=== PATIENT | female | born 1945 | race Caucasian/White ===

== ENCOUNTER → 2017-10-26 08:38 | Outpatient (CLI) | payer MEDICARE, BC, SELFPAY ==
[2017-10-26 10:59] LABS: Hemoglobin A1c 6.1 % (4.2-6.3)
[2017-10-26 11:09] LABS: ALB/GLOB Ratio 1.1 RATIO (0.9-2.4); AST(SGOT) 49 U/L (15-37); Alanine Aminotransfer ALT/SGPT 68 U/L (13-56); Albumin, Serum 3.4 g/dL (3.2-5.0); Alkaline Phosphatase 46 U/L (45-117); Anion Gap 7 (5-15); BUN 30 mg/dL (7-18); BUN/Creat Ratio 38.3 RATIO (10-20); Calcium,Total 8.6 mg/dL (8.5-10.1); Chloride 109 mmol/L (98-107); Creatinine, Serum 0.78 mg/dL (0.55-1.02); EST Glomerular Filtration Rate 76 mL/min (>60); Est Glom Filt Rate - Afr Amer 92 mL/min (>60); Glucose 76 mg/dL (74-106); Potassium 4.2 mmol/L (3.5-5.1); Protein, Total 6.4 g/dL (6.4-8.2); Sodium Level 141 mmol/L (136-145)
== END ==
PROVIDERS: Family Provider Internal Medicine; PCP Internal Medicine; Visit Provider Nurse Practitioner
DX: E10.9 Type 1 diabetes mellitus without complications (principal)
CPT/HCPCS: 36415; 80053; 83036

== ENCOUNTER → 2018-02-01 08:08 | Outpatient (CLI) | payer MEDICARE, BC, SELFPAY ==
[2018-02-01 10:49] LABS: ALB/GLOB Ratio 1.2 RATIO (0.9-2.4); AST(SGOT) 26 U/L (15-37); Alanine Aminotransfer ALT/SGPT 30 U/L (13-56); Albumin, Serum 3.5 g/dL (3.2-5.0); Alkaline Phosphatase 43 U/L (45-117); Anion Gap 5 (5-15); BUN 33 mg/dL (7-18); BUN/Creat Ratio 38.5 RATIO (10-20); Chloride 110 mmol/L (98-107); Creatinine, Serum 0.86 mg/dL (0.55-1.02); EST Glomerular Filtration Rate 69 mL/min (>60); Est Glom Filt Rate - Afr Amer 83 mL/min (>60); Glucose 95 mg/dL (74-106); Potassium 4.1 mmol/L (3.5-5.1); Protein, Total 6.5 g/dL (6.4-8.2); Sodium Level 142 mmol/L (136-145)
[2018-02-01 10:50] LABS: Microalbumin,Random Urine 13.3 mg/L (NO RANGE EST.)
[2018-02-01 10:57] LABS: Hemoglobin A1c 5.9 % (4.2-6.3)
== END ==
PROVIDERS: Family Provider Internal Medicine; PCP Internal Medicine; Visit Provider Nurse Practitioner
DX: E10.9 Type 1 diabetes mellitus without complications (principal)
CPT/HCPCS: 36415; 80053; 82043; 82570; 83036

== ENCOUNTER → 2018-02-18 11:08 | Outpatient (CLI) | payer MEDICARE, BC, SELFPAY ==
--- NOTE | 2018-02-18 11:15 | RAD_ITS ---
STUDY: X-RAY - CERVICAL SPINE REASON FOR EXAM: Female, 72 years old. Neck pain TECHNIQUE: 5 view(s) of the cervical spine were obtained. COMPARISON: None FINDINGS: Moderate to moderately severe disc narrowing is present between C3 and C7 with small partially bridging anterior osteophytes, posterior uncovertebral joint hypertrophy, minimal facet arthropathy. In the oblique views the uncovertebral joint hypertrophy contributes to mild bony foraminal narrowing at multiple levels. There is mild cervicothoracic scoliosis. There is preserved lordosis. There is normal vertebral body height and alignment. The posterior elements appear intact. The prevertebral soft tissues appear normal. The odontoid and lateral masses are intact and aligned. Apical thoracic structures unremarkable. RAD/Cerv Spine 4 or 5 Views IMPRESSION: Multilevel cervical degenerative disc disease with evidence of multilevel foraminal narrowing secondary to uncovertebral joint hypertrophy. Cord for any symptoms of cervical radiculopathy that may indicate the presence of nerve root impingement. Consider follow-up MRI of the cervical spine for more complete characterization if clinically appropriate. Electronically Signed: Zuhair Landrum, at 14:35 EDT Tel , Service support ,
== END ==
PROVIDERS: Family Provider Internal Medicine; PCP Internal Medicine; Visit Provider Nurse Practitioner Family
DX: M50.11 Cervical disc disorder with radiculopathy, high cervical region (principal)
CPT/HCPCS: 72050

== ENCOUNTER → 2018-02-26 13:03 | Outpatient (CLI) | payer MEDICARE, BC, SELFPAY ==
--- NOTE | 2018-02-26 13:04 | MRI_ITS ---
STUDY: MRI CERVICAL SPINE WITHOUT CONTRAST REASON FOR EXAM: Female, 72 years old. Neck pain TECHNIQUE: Standardized fat and water weighted pulse sequences were obtained in the sagittal and axial planes. COMPARISON: None FINDINGS: Normal foramen magnum and brainstem-cervical cord junction. Normal craniovertebral junction. Normal anterior atlantoaxial articulation. Normal odontoid process. Normal cervical lordosis. Normal vertebral bodies and posterior osseous elements. C2-3: Normal endplates. Normal disc height, signal and morphology. Normal central canal and intervertebral neural foramina. C3-4: Moderate narrowing of the neural foramen on the left. Central canal and right neural foramen patent. C4-5: Moderate disc space narrowing and narrowing of the neural foramen on the left. Central canal and right neural foramen patent. C5-6: Moderate narrowing of the neural foramina bilaterally. Broad-based posterior disc marginal osteophyte. Central canal measures 8 mm in the midline. C6-7: Moderate narrowing of the neural foramina bilaterally due to uncinate spondylosis. Central canal patent. C7-T1: Normal endplates. Normal disc height, signal and morphology. Normal central canal and intervertebral neural foramina. Normal cervical cord. Normal visualized soft tissue structures. MRI/Spine Cervical (Routine) IMPRESSION: Multilevel central and lateral spinal stenosis most severe at C5-6 Electronically Signed: Armando Velasquez MD at 19:47 EDT , Service support ,
== END ==
PROVIDERS: Family Provider Internal Medicine; PCP Internal Medicine; Visit Provider Nurse Practitioner Family
DX: M54.12 Radiculopathy, cervical region (principal); M50.30 Other cervical disc degeneration, unspecified cervical region; R93.7 Abnormal findings on diagnostic imaging of other parts of musculoskeletal system
CPT/HCPCS: 72141

== ENCOUNTER → 2018-04-30 10:27 | Outpatient (CLI) | payer MEDICARE, BC, SELFPAY | PROVIDERS: Family Provider Internal Medicine; PCP Internal Medicine; Visit Provider Orthopaedic Surgery | DX: M50.30 Other cervical disc degeneration, unspecified cervical region (principal) | CPT/HCPCS: 72050 ==

== ENCOUNTER → 2018-05-07 07:50 | Outpatient (CLI) | payer MEDICARE, BC, SELFPAY ==
[2018-05-07 10:17] LABS: Microalbumin,Random Urine 50.6 mg/L (NO RANGE EST.)
[2018-05-07 10:23] LABS: ALB/GLOB Ratio 1.2 RATIO (0.9-2.4); AST(SGOT) 29 U/L (15-37); Alanine Aminotransfer ALT/SGPT 35 U/L (13-56); Albumin, Serum 3.7 g/dL (3.2-5.0); Alkaline Phosphatase 36 U/L (45-117); Anion Gap 7 (5-15); BUN 35 mg/dL (7-18); BUN/Creat Ratio 44.1 RATIO (10-20); Calcium,Total 9.1 mg/dL (8.5-10.1); Chloride 108 mmol/L (98-107); Creatinine, Serum 0.79 mg/dL (0.55-1.02); EST Glomerular Filtration Rate 75 mL/min (>60); Est Glom Filt Rate - Afr Amer 91 mL/min (>60); Globulin 3.1 g/dL (2.2-4.2); Glucose 76 mg/dL (74-106); Potassium 4.2 mmol/L (3.5-5.1); Protein, Total 6.8 g/dL (6.4-8.2); Sodium Level 141 mmol/L (136-145)
[2018-05-07 10:26] LABS: Hemoglobin A1c 5.9 % (4.2-6.3)
[2018-05-07 13:58] LABS: Cholesterol 180 mg/dL (200); High Density Lipoprotein 67 mg/dL; Triglycerides 45 mg/dL; Very Low Density Lipoprotein 9 mg/dL (5-40)
== END ==
PROVIDERS: Nurse Practitioner Family; Family Provider Internal Medicine; PCP Internal Medicine; Visit Provider Nurse Practitioner
DX: E10.9 Type 1 diabetes mellitus without complications (principal); E10.69 Type 1 diabetes mellitus with other specified complication; E78.5 Hyperlipidemia, unspecified
CPT/HCPCS: 36415; 80053; 80061; 82043; 82570; 83036

== ENCOUNTER → 2018-06-06 10:33 | Outpatient (CLI) | payer MEDICARE, BC, SELFPAY ==
--- NOTE | 2018-06-06 10:34 | BI_ITS ---
MAMMOGRAPHY - BILATERAL SCREENING REASON FOR EXAM: Female, 73 years old. Routine annual screening examination. PERTINENT HISTORY: no fam hx lt stereo bx 1994 TECHNIQUE: Digital bilateral breast swapna (3D mammographic acquisition) in the CC and MLO projections. 2-D mediolateral oblique (MLO) and craniocaudad (CC) views of both breasts were obtained. CAD: Full Field Digital Mammography with Computer Added Detection was performed. COMPARISON: Jun 05 2017 11:17am FINDINGS: Breast Composition: The breasts are heterogeneously dense, which may obscure small masses. There are no dominant masses or suspicious calcifications. No other significant abnormalities are identified. BI/SCREENING MAMM (CAD), BILAT IMPRESSION: Stable bilateral screening mammogram. Yearly follow-up mammogram recommended. (A) ASSESSMENT CATEGORY: BIRADS Category 2: Benign. A letter regarding these results will be sent to the patient by the facility within 30 days. Approximately 10% of breast cancers are not detected by mammography. A normal mammogram should not delay biopsy of a clinically suspicious abnormality. [id number] Electronically Signed: Ashley Strauss MD at 16:39 EDT Tel , Service support ,
== END ==
PROVIDERS: Family Provider Internal Medicine; PCP Internal Medicine; Referring Provider Nurse Practitioner Family; Visit Provider Nurse Practitioner Family
DX: Z12.31 Encounter for screening mammogram for malignant neoplasm of breast (principal)
CPT/HCPCS: 77063; 77067

== ENCOUNTER → 2018-08-01 08:26 | Outpatient (CLI) | payer MEDICARE, BC, SELFPAY ==
[2018-05-07 13:01] VITALS: BMI 24.0
[2018-08-01 10:23] LABS: ALB/GLOB Ratio 1.1 RATIO (0.9-2.4); AST(SGOT) 36 U/L (15-37); Alanine Aminotransfer ALT/SGPT 42 U/L (13-56); Albumin, Serum 3.4 g/dL (3.2-5.0); Alkaline Phosphatase 41 U/L (45-117); Anion Gap 7 (5-15); BUN 30 mg/dL (7-18); BUN/Creat Ratio 34.8 RATIO (10-20); Calcium,Total 8.8 mg/dL (8.5-10.1); Chloride 109 mmol/L (98-107); Creatinine, Serum 0.86 mg/dL (0.55-1.02); EST Glomerular Filtration Rate 68 mL/min (>60); Est Glom Filt Rate - Afr Amer 83 mL/min (>60); Globulin 3.1 g/dL (2.2-4.2); Glucose 91 mg/dL (74-106); Potassium 4.1 mmol/L (3.5-5.1); Protein, Total 6.5 g/dL (6.4-8.2); Sodium Level 144 mmol/L (136-145)
[2018-08-01 10:35] LABS: Hemoglobin A1c 7.1 % (4.2-6.3)
[2018-08-01 10:36] LABS: Microalbumin,Random Urine 23.6 mg/L (NO RANGE EST.)
--- OUTSIDE RECORDS SUMMARY | 2018-09-26 08:09 | XMS RPT_ITS ---
:1945 Author Organization OHIP Support Name Relationship Address Phone LOREN SCOTT [address] + [place] [address] R Unavailable Unavailable Unavailable LOREN SCOTT Unavailable [address] + [place] [address] R Unavailable Unavailable Unavailable LOREN SCOTT Unavailable [address] + [place] [address] R Unavailable Unavailable Unavailable LOREN SCOTT Unavailable [address] + [place] [address] R Unavailable Unavailable Unavailable LOREN SCOTT Unavailable [address] + [place] [address] R Unavailable Unavailable Unavailable LOREN SCOTT Unavailable [address] + [place] [address] R Unavailable Unavailable Unavailable LOREN SCOTT Unavailable [address] + [place] [address] R Unavailable Unavailable Unavailable LOREN SCOTT Unavailable [address] + [place] [address] R Unavailable Unavailable Unavailable LOREN SCOTT Unavailable [address] + [place] [address] R Unavailable Unavailable Unavailable LOREN SCOTT Unavailable [address] + [place] [address] R Unavailable Unavailable Unavailable LOREN SCOTT Unavailable [address] + [place] [address] R Unavailable Unavailable Unavailable LOREN SCOTT Unavailable [address] + [place] [address] R Unavailable Unavailable Unavailable LOREN SCOTT Unavailable [address] + [place] [address] R Unavailable Unavailable Unavailable SONIA, LOREN Unavailable [address] + [place] [address] R Unavailable Unavailable Unavailable SONIA, LOREN Unavailable [address] + [place] [address] R Unavailable Unavailable Unavailable SONIA, LOREN Unavailable [address] + [place] [address] R Unavailable Unavailable Unavailable SONIA, LOREN Unavailable [address] + [place] [address] R Unavailable Unavailable Unavailable SONIA, LOREN Unavailable Unavailable + SONIA, LOREN Unavailable Unavailable + SONIA, LOREN Unavailable [address] + [place] [address] R Unavailable Unavailable Unavailable Care Team Providers Name Role Phone Alina Murguia SENIOR SYSTEM OPERATOR-C Attending Unavailable Oleghe, Efewongbe Referring Unavailable Oleghe, Efewongbe Primary Care Unavailable Jenny Laboy SENIOR SYSTEM OPERATOR-C Attending Unavailable Jenny Laboy SENIOR SYSTEM OPERATOR-C Referring Unavailable Oleghe, Efewongbe Primary Care Unavailable Jenny Laboy SENIOR SYSTEM OPERATOR-C Attending Unavailable Oleghe, Efewongbe Referring Unavailable Jenny Laboy SENIOR SYSTEM OPERATOR-C Attending Unavailable Jenny Laboy SENIOR SYSTEM OPERATOR-C Referring Unavailable Oleghe, Efewongbe Primary Care Unavailable Jenny Laboy SENIOR SYSTEM OPERATOR-C Attending Unavailable Oleghe, Efewongbe Referring Unavailable Alina Murguia SENIOR SYSTEM OPERATOR-C Attending Unavailable Oleghe, Efewongbe Referring Unavailable Oleghe, Efewongbe Primary Care Unavailable Alina Murguia SENIOR SYSTEM OPERATOR-C Attending Unavailable Alina Murguia SENIOR SYSTEM OPERATOR-C Referring Unavailable Oleghe, Efewongbe Primary Care Unavailable Alina Murguia SENIOR SYSTEM OPERATOR-C Attending Unavailable Alina Murguia SENIOR SYSTEM OPERATOR-C Referring Unavailable Oleghe, Efewongbe Primary Care Unavailable Alina Murguia SENIOR SYSTEM OPERATOR-C Attending Unavailable Oleghe, Efewongbe Referring Unavailable Erika Degroot Attending Unavailable Oleghe, Efewongbe Referring Unavailable Oleghe, Efewongbe Primary Care Unavailable Erika Degroot Attending Unavailable Erika Degroot Referring Unavailable Oleghe, Efewongbe Primary Care Unavailable ShoJenny andujar SENIOR SYSTEM OPERATOR-C Attending Unavailable ShookJenny SENIOR SYSTEM OPERATOR-C Referring Unavailable Oleghe, Efewongbe Primary Care Unavailable ShoJenny andujar SENIOR SYSTEM OPERATOR-C Attending Unavailable Oleghe, Efewongbe Referring Unavailable Oleghe, Efewongbe Primary Care Unavailable MurguiaAlina back SENIOR SYSTEM OPERATOR-C Attending Unavailable Oleghe, Efewongbe Referring Unavailable MurguiaAlina SENIOR SYSTEM OPERATOR-C Attending Unavailable MurguiaAlina SENIOR SYSTEM OPERATOR-C Referring Unavailable Oleghe, Efewongbe Primary Care Unavailable ShoJenny andujar SENIOR SYSTEM OPERATOR-C Attending Unavailable ShookJenny SENIOR SYSTEM OPERATOR-C Referring Unavailable Oleghe, Efewongbe Primary Care Unavailable ShookJenny SENIOR SYSTEM OPERATOR-C Attending Unavailable Oleghe, Efewongbe Referring Unavailable ShookJenny SENIOR SYSTEM OPERATOR-C Attending Unavailable Oleghe, Efewongbe Referring Unavailable Oleghe, Efewongbe Primary Care Unavailable LEMON, CARLOS (PT) Attending Unavailable MURGUIA, ALINA (INDUSTRIAL ORGANIZATION MANAGER) Referring Unavailable LEMON, CARLOS (PT) Attending Unavailable MIRYAM DEGROOTERIKA M Referring Unavailable LEMON, CARLOS (PT) Attending Unavailable MURGUIA, ALINA (INDUSTRIAL ORGANIZATION MANAGER) Referring Unavailable MURGUIA, ALINA (INDUSTRIAL ORGANIZATION MANAGER) Referring Unavailable LEMON, CARLOS (PT) Attending Unavailable MURGUIA, ALINA (INDUSTRIAL ORGANIZATION MANAGER) Referring Unavailable MURGUIA, ALINA (INDUSTRIAL ORGANIZATION MANAGER) Referring Unavailable LEMON, CARLOS (PT) Attending Unavailable MURGUIA, ALINA (INDUSTRIAL ORGANIZATION MANAGER) Referring Unavailable LEMON, CARLOS (PT) Attending Unavailable MURGUIA, ALINA (INDUSTRIAL ORGANIZATION MANAGER) Referring Unavailable LEMON, CARLOS (PT) Attending Unavailable MURGUIA, ALINA (INDUSTRIAL ORGANIZATION MANAGER) Referring Unavailable LEMON, CARLOS (PT) Attending Unavailable MURGUIA, ALINA (INDUSTRIAL ORGANIZATION MANAGER) Referring Unavailable MURGUIA, ALINA (INDUSTRIAL ORGANIZATION MANAGER) Referring Unavailable Dr. Miguel Stallworth Attending Unavailable *SELF, REFERRED Referring Unavailable Madison Reyes Primary Care Unavailable PROBLEMS PROBLEMS DATE TYPE CONDITION / CODE ATTENDING STATUS SOURCE 08/06/2018 Unknown E55.9 - Vitamin D Jenny Laboy Active [place] deficiency, SENIOR SYSTEM OPERATOR-C Community unspecified / Hospital E55.9(ICD-10) Repository 08/06/2018 Unknown E11.9 - Type 2 Jenny Laboy Active [place] diabetes mellitus SENIOR SYSTEM OPERATOR-C Community without complications Hospital / E11.9(ICD-10) Repository 08/06/2018 Unknown E10.9 - Type 1 Jenny Laboy Active [place] diabetes mellitus SENIOR SYSTEM OPERATOR-C Community without complications Hospital / E10.9(ICD-10) Repository 05/07/2018 Unknown K85.90 - Acute MurguiaAlina back Active [place] pancreatitis without SENIOR SYSTEM OPERATOR-C Community necrosis or Hospital infection, Repository unspecified / K85.90(ICD-10) 05/07/2018 Unknown E10.69 - Type 1 Murguia, Alina Active [place] diabetes mellitus SENIOR SYSTEM OPERATOR-C Community with other specified Hospital complication / Repository E10.69(ICD-10) 05/07/2018 Unknown E78.5 - MurguiaAlina back Active [place] Hyperlipidemia, SENIOR SYSTEM OPERATOR-C Community unspecified / Hospital E78.5(ICD-10) Repository 05/07/2018 Unknown Z12.31 - Encounter MurguiaAlina back Active [place] for screening SENIOR SYSTEM OPERATOR-C Community mammogram for Hospital malignant neoplasm of Repository breast / Z12.31(ICD-10) 04/30/2018 Unknown M54.2 - Cervicalgia / Erika Degroot Active [place] M54.2(ICD-10) [facility] Repository 02/26/2018 Unknown R93.7 - Abnormal MurguiaAlina back Active [place] findings on SENIOR SYSTEM OPERATOR-C Community diagnostic imaging of Hospital other parts of Repository musculoskeletal system / R93.7(ICD-10) 02/26/2018 Unknown M54.12 - MurguiaAlina back Active [place] Radiculopathy, SENIOR SYSTEM OPERATOR-C Community cervical region / Hospital M54.12(ICD-10) Repository 02/26/2018 Unknown M50.30 - Other MurguiaAlina Active [place] cervical disc SENIOR SYSTEM OPERATOR-C Community degeneration, Hospital unspecified cervical Repository region / M50.30(ICD-10) PROCEDURES PROCEDURES No Procedure Records FoundRESULTS RESULTS ENDOCRINOLOGY VISIT Observed: 08/07/2018 Status: F Source: [place] REPORT 7:59 AM [facility] REPOSITORY [facility] [address] [place], [place] [address]. [address] [place] [address] OFFICE VISIT Date of Service: 08/06/18 MR#: [id number] Acct: [id number] Name: TASNEEM [place] Rep #: [id number] : 1945 Provider: Jenny Laboy NP Age/Sex: 73/F Location: [facility] [place] Status: Signed HPI History of present illness TASNEEM [place], is a 73 F who presents to the office today for a follow-up of her diabetes type 1. She has a past medical history which is significant for that of type 1 diabetes, hyperlipidemia, osteoarthritis, spinal stenosis (seen Dr. Pelletier pain management), hypertension, and osteopenia. Last visit lantus decreased by 1 unit due to hypoglycemia in am. A1c up to 7.1 but patient is without hypoglycemia She does follow with podiatry. She is up-to-date on her yearly ophthalmology exam. Since our last visit she denies excessive thirst, increased frequency of urination, chest pain or dyspnea. Follows a diabetic diet, Is compliant with medication and is tolerating without side effects. SMBG 6-8 times daily 70-140 average She is tolerating her statin therapy well and states that she has started her calcium and vitamin D supplementation for osteopenia, She denies any recent fractures or falls. She states that she is up-to-date on her influenza and pneumonia vaccine. At time of visit: -Pt denies symptoms of hypertensive emergency (CP,SOB,HELLER, or blurred vision) and hypotension(dizziness or lightheadedness) -Pt denies symptoms of hypoglycemia ( sweaty, confusion, anxiety, tremor, hunger, palpitations) and hyperglycemia ( polydipsia, polyuria) -Pt denies potential medication adverse effect. Hypoglycemia Aware of hypoglycemia:yes Able to self treat low BG: Yes Frequent low Blood sugar: No Has supply of glucagon: SMBG 8 times daily BG 70-150 average. Diet 3 meals Carb counts Exam Const General: comfortable, no acute distress Nutritional Appearance: average body habitus [facility] Head: normal to inspection, atraumatic Ears: hearing grossly normal bilaterally Mouth: oral mucosae normal, moist mucous membranes Eyes General: appearance normal, both eyes and all related structures Eyelids: eyelids normal Conjunctivae: conjunctivae normal Sclera: sclerae normal Neck Neck: normal visual inspection, full ROM Neck mass: No Resp Effort AND Inspection: normal respiratory effort, able to speak in complete sentences, symmetric chest movement Auscultation: Bilateral: Clear to Auscultation Cardio Rate: regular rate Rhythm: regular rhythm Heart Sounds: S1 normal, S2 normal, no gallops, no murmurs, no rubs GI Inspection: normal to inspection Auscultation: normal bowel sounds Palpation: soft, no guarding Skin General: no rashes or lesions noted Wounds: no wounds Diabetic Foot Pulses: L dorsalis pedis pulse: normal, R dorsalis pedis pulse: normal Monofilament test: Left foot: normal, Right foot: normal Neuro General: gait normal, normal light touch, pain and propioception Cognition: normal cognition Speech: speech normal Gait: normal gait Extrem General: normal to inspection Psych Appearance: well kempt Mental Status: mental status grossly normal Mood: congruent mood Affect: normal affect Speech and Movement: speech and movement normal Attitude: cooperative Thought Process: normal Judgment: judgment good Type: type 1, insulin-requiring Glucose control symptoms: Reports hypoglycemic with activity, nocturnal hypoglycemia and high post-meal glucose Weight and fatigue symptoms: Denies snoring Cardiopulmonary symptoms: Denies chest pain at rest, dyspnea on exertion, lightheadedness or myalgias GI symptoms: Denies constipation, diarrhea, nausea/dyspepsia or vomiting Other symptoms: Reports change in vision; denies blurry vision Pertinent visit history: Denies recent visit to ER, recent hospital admission or recent 911 calls Self monitoring: Yes Percentage of fasting blood glucose within goal: most of the time Dietary compliance: Diabetes: good Diabetes education in past year: Yes Glucose testing: demonstrates correct use of meter, understands testing schedule Sick day education - understands ketone testing: Yes Physical activity: regular Intake Vital Signs08/06/18 Height 5 ft 4 in 08/06/18 Weight: 142 lb 4 oz 08/06/18 Body Mass Index (BMI) 24.4 08/06/18 Blood Pressure 119/78 08/06/18 Blood Pressure Location Rt popliteal 08/06/18 Blood Pressure Position Sitting Intake Visit Reasons: Diabetes follow-up Chief Complaint: follow-up Rrt Required: No Accompanied by: Self Allergies codeine Allergy (Severe, Verified 08/06/18 09:43) Unknown Sulfa (Sulfonamide Antibiotics) Allergy (Severe, Verified 08/06/18 09:43) Unknown penicillin Allergy (Severe, Uncoded 08/06/18 09:43) Unknown Medications blood sugar diagnostic strips See Dose Instructions .ROUTE .MEDSUPPLY #20 ea 08/07/17 [History Confirmed 08/06/18] calcium carbonate 600 mg(1,500 mg)-vitamin D3 800 unit chewable tablet 1 tab PO BID 08/29/17 [History Confirmed 08/06/18] lisinopril 10 mg tablet 10 mg PO QDAY #90 tab 09/11/17 [Rx Confirmed 08/06/18] insulin glargine (U-100) 100 unit/mL (3 mL) subcutaneous pen 12 unit SC QDAY #15 ml 12/10/17 [Rx Confirmed 08/06/18] insulin lispro (U- 100) 100 unit/mL subcutaneous pen See Rx Instructions SC TID #15 ml 12/10/17 [Rx Confirmed 08/06/18] atorvastatin 40 mg tablet 40 mg PO QDAY #90 tab 04/18/18 [Rx Confirmed 08/06/18] gabapentin 300 mg capsule 300 mg PO QHS #60 cap 08/06/18 [Rx] pen needle, diabetic 31 gauge x 01/16 See Dose Instructions .ROUTE .MEDSUPPLY #150 ea 08/06/18 [Rx] Nurse's Note: blood sugars : low : 47 high : 325 [facility] Medical History Arthritis (Chronic) Back problem (Chronic) Pancreatitis (Acute) Diabetes type 1, controlled (Chronic) Osteoarthritis (Chronic) Carpal tunnel syndrome (Acute) Gallstones (Acute) H/O: hysterectomy (Acute) Skin cancer (Acute) Surgical History History of carpal tunnel release (Acute) History of cholecystectomy (Acute) History of tonsillectomy (Acute) History of total knee arthroplasty (Acute) Family History Mother Asthma Liver disease Father CVA (cerebral vascular accident) Social History Smoking Status: Never smoker second hand exposure: No alcohol intake: never substance use type: does not use what type of physical activity do you participate in: walking frequency: daily ROS Const Constitutional: No anorexia, body ache, chills, fatigue, fever(s), frequent falls, decreased energy, malaise, night sweats, weakness, weight change, sleep problems, abnormal sleep pattern, change in appetite, other, headache(s), snoring or excessive sweating Eyes Eyes: Positive for change in vision and other (poor night vision); no blurry vision, double vision, discharge, dry eyes, bulging eyes, floaters, visual disturbances, eye pain, light sensitivity, spots in vision or tunnel vision ENT ENT: No abnormal hearing, ear pain, ear discharge, ear pressure, hearing loss, tinnitus, dizziness/vertigo, balance problems, nosebleed/epistaxis, nasal congestion, nasal obstruction, nose pain, sinus pressure, sinus pain, nasal discharge, post nasal drip, headache(s), facial pain, dental pain, dry mouth, bad breath, hoarseness, lip swelling, mouth lesions, mouth pain, sore throat, tongue swelling, throat swelling, other, difficulty swallowing or neck pain Resp Respiratory: No cough, change in phlegm color, chest congestion, excessive phlegm production, hemoptysis, pain on inspiration, shortness of breath, pain with cough, snoring, stridor, wheezing or other Cardio Cardiology: No chest pain at rest, chest pain with exertion, leg pain with exertion, excessive sweating, shortness of breath, dyspnea on exertion, generalized swelling, irregular heart rhythm, lightheadedness, orthopnea, radiating jaw, neck or arm pain, fast heart rate, slow heart rate, palpitations or other Gastro GI: No abdominal pain, belching, bloating, change in bowel habits, change in stool character, coffee ground emesis, constipation, cramping, diarrhea, heartburn, difficulty swallowing, feeling full early, excessive flatus, incontinent of stools, Vomiting blood/hematemesis, blood in stool, loose stools, Black,tarry stools, nausea/dyspepsia, pain with swallowing, vomiting or other Genitourinary-Female: Positive for urinary frequency; no difficulty urinating, burning urination, painful urination, urinary incontinence, urinary urgency, urinary hesitancy, urinary retention, blood in urine, Frequent nighttime urination/ nocturia, post void dribbling, suprapubic fullness, side pain, sexual problems, genital lesions, genital itching, hot flashes, abnormal periods, abnormal vaginal bleeding, absent period, painful periods, light periods, heavy periods, difficulty getting , painful intercourse, pelvic pain, vaginal dryness, vaginal odor, Vaginal Itching or other Musc Musculoskeletal: No abnormal walking, joint pain, back pain, deformity, joint swelling, limited range of motion, loss of height, muscle cramps, muscle weakness, decreased muscle mass, body aches, neck pain, numbness, radiating pain into limb, stiffness, tingling or other Skin Skin: No acne, hair loss, change in hair, nail changes, boil, change in skin color, dry skin, redness, excessive hair growth, yellowing of the skin, lesions, itching, rash, skin pain, skin ulcer, sores, skin swelling, wounds or other Breast Breast: No other Neuro Neurology: No frequent falls, weakness, visual disturbances, abnormal hearing, headache(s), abnormal walking, numbness or tingling Psych Psychiatric: No abnormal sleep pattern, No change in appetite Endo Endocrine: No fatigue, other or excessive sweating Aller/Imm Allergy/Immunologic: No lip swelling, tongue swelling, throat swelling, wheezing or itchy eyes Assessment AND Plan 1. 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 E10.69; E78.5 Plan A1c higher but patient is without as many low BG readings. Had some issues with freestyle sensor noting much lower BG than her meter. this created need to continue to numerous fingersticks along with the sensor but the sensor did alert her to low BG readings. Continues to monitor diet . On statin without side effects. BP controlled Renal function reviewed. GFR and cr normal. Continues on vitamin D supplement. 2. Vitamin D deficiency E55.9 Orders Orders: Plan Detail Other Orders Orders: Additional Comments 1. Please schedule follow up in 3 months. 2. Lab work one week before appointment. 3. Discussed importance of regular exercise and recommend starting or continuing a regular exercise program for good health. 4. The patient was encouraged to lose weight for good health 5. The importance of monitoring blood sugar regularly was reviewed. 6. The importance of monitoring the HBA1c level regularly was reviewed. 7. The importance of prper foot care and regularly checking feet to prevent sores and loss of limbs was reviewed. 8. The importance of keeping BP at or below 130/80 to prevent stroke, heart attacks, kidney failure, blindness was reviewed. Spent approximately 30 minutes with patient with over 50% of time spent in discussion and counseling regarding medication adjustment, symptoms and treatment of hypoglycemia, diet adherence, and checking BG before driving. Coding Level of Care Code Off vis,est,level 4 Diagnoses 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 E10.69; E78.5 Vitamin D deficiency E55.9 08/07/18 0758 <Electronically signed by Jenny GALLO> Date Jenny Laboy SENIOR SYSTEM OPERATOR-C Cosigner Signature: Date (if applicable) CC: COMPREHENSIVE METABOLIC Collected: 08/01/2018 Status: F Source: [place] 8:36 AM [facility] REPOSITORY TYPE CODE TESTS RESULT OUT OF RANGE REFERENCE UNITS LAB L501.0100 74-106 mg/dL Normal GLU 91 Result Comment: Please note revised GLUCOSE reference range effective 2017. LAB L501.1000 7-18 mg/dL High BUN 30 LAB L501.1100 0.55-1.02 mg/dL Normal CREAT,SERUM 0.86 Result Comment: The validity of the calculated GFR AND GFRAA in patients over 70 years has not been determined. Clinical correlation is essential. LAB L501.1110 >60 mL/min Normal EST GFR 68 Result Comment: Non- GFR Calc LAB L501.1115 >60 mL/min Normal EST GFR - AA 83 Result Comment: GFR Calc LAB L501.1300 10-20 RATIO High BUN/CRE 34.8 LAB L501.1500 6.4-8.2 g/dL T Normal PROT 6.5 LAB L501.1800 3.2-5.0 g/dL Normal ALB 3.4 LAB L501.1950 2.2-4.2 g/dL Normal GLOB 3.1 LAB L501.2000 0.9-2.4 RATIO Normal A/G 1.1 LAB L501.2200 8.5-10.1 mg/dL CA Normal 8.8 LAB L501.4100 15-37 U/L Normal AST 36 LAB L501.4305 45-117 U/L Low ALK P 41 LAB L501.4405 13-56 U/L Normal ALT 42 LAB L501.4600 0.20-1.00 mg/dL T Normal BILI 0.50 LAB L501.5300 136-145 mmol/L NA Normal 144 LAB L501.5600 3.5-5.1 mmol/L K Normal 4.1 LAB L501.5900 98-107 mmol/L High CL 109 LAB L501.6100 21.0-32.0 mmol/L Normal CO2 28.0 LAB L501.6200 5-15 Normal GAP 7 Performed By: #### L500.4050 #### [facility] [address] [place], [address] HEMOGLOBIN A1C Collected: 08/01/2018 Status: F Source: [place] 8:36 AM [facility] REPOSITORY TYPE CODE TESTS RESULT OUT OF RANGE REFERENCE UNITS LAB L501.9985 4.2-6.3 % High HGB A1C 7.1 Performed By: #### L501.9985 #### [facility] [address] [place], [address] CREATININE, URINE Collected: 08/01/2018 Status: F Source: [place] (RANDOM) 8:36 AM [facility] REPOSITORY TYPE CODE TESTS RESULT OUT OF RANGE REFERENCE UNITS LAB L501.1200 NO RANGE EST. mg/dL Normal UR CREAT 69.20 Performed By: #### L501.1200, L502.0500 #### [facility] [address] [place], [address] MICROALBUMIN,RANDOM URINE Collected: Status: F Source: [place] 08/01/2018 8:36 AM [facility] REPOSITORY TYPE CODE TESTS RESULT OUT OF RANGE REFERENCE UNITS LAB L502.0500 NO RANGE EST. mg/L Normal 23.6 MICROALBUMIN ,UR Performed By: #### L501.1200, L502.0500 #### [facility] [address] [place], [address] PROGRESS Observed: 06/10/2018 Status: COMPLETED Source: [place] 1:46 PM [facility] REPOSITORY HNO ID: [id number] Author: Carlos (Pt) Maykel Service: (none) Author Type: Physical Therapist Type: Progress Notes Filed: 06/10/2018 1:48 PM Note Text: [facility] PHYSICAL THERAPY DISCONTINUANCE OF CARE Plan of Care Period: Start of Care Date: 03/15/18 Last Visit Date: 05/01/18 Therapy Program: The following is a summary of the interventions provided for this episode of care; Therapeutic exercise, Manual therapy, Patient/Family/Caregiver Education and Modalities: Ultrasound Assessment: The following is the goal status: Goals for Episode of Care: created on 03/15/18 through 05/16/18 Goals updated on 05/01/2018. [place] in home exercise program. (Met) Patient will decrease pain rating by 2 points to meet minimal clinical important difference for numeric pain rating scale. (Met) Patient will increase active ROM of cervical spine L lateral flexion by 15 degrees to allow pt to improved performance of ADLs and reduce pain and restrictions. (Not Met) Patient will increase strength of cervical musculature to 4 to 4+/5 to allow for return to prior functional status, improve posture and reduce pain. (Not Met) Perform all daily activities with decreased report of symptoms/pain in 4-8 weeks. (Met) Demonstrate improvement on functional score: Patient will improve his/her AM-PAC T-scale score by 4 points to indicate a Minimal Clinical Important Difference. (Not Met) Improve postural awareness. (Met) G CODE REPORTING Based on clinical assessment and the score on the AM-PAC Scale Score Assessment Tool, the G code and corresponding severity modifiers are documented below. Evaluation: 03/15/2018 Current Status: Carrying, Moving and Handling Objects: G8984 20-39% impaired Goal Status: Carrying, Moving and Handling Objects: G8985 CI 1-19% impaired Progress Update: 04/17/2018 Current Status: Carrying, Moving and Handling Objects: G8984 CJ 20-39% impaired Goal Status: Carrying, Moving and Handling Objects: G8985 CI 1-19% impaired Based on the most recent progress report, patient was progressing as expected toward functional goals based on documented subjective information on progress and documented objective information regarding range of motion and overall function. Reason for Discontinuation of Care: Patient has not returned to therapy or scheduled additional follow-up appointments. Carlos Brar, PT SCREENING MAMM (CAD), Observed: 06/06/2018 Status: F Source: NA[place]Y [place] 10:34 AM [facility] REPOSITORY [facility] Imaging Services [address] [place] [address] SCREENING MAMM (CAD), BILROSSY MR#: [id number] Acct: [id number] Name: TASNEEM BATISTA Rep #: [id number] : 1945 F 73 From: Ashley Strauss MD PCP: Kumar Mcguire MD Status: REG CLI Study: SCREENING MAMM (CAD), BILAT Date of Exam: 06/06/18 Exam# [id number] Ordering Dr: Alina Murguia SENIOR SYSTEM OPERATOR-C MAMMOGRAPHY - BILATERAL SCREENING REASON FOR EXAM: Female, 73 years old. Routine annual screening examination. PERTINENT HISTORY: no fam hx lt stereo bx 1994 TECHNIQUE: Digital bilateral breast swapna (3D mammographic acquisition) in the CC and MLO projections. 2-D mediolateral oblique (MLO) and craniocaudad (CC) views of both breasts were obtained. CAD: Full Field Digital Mammography with Computer Added Detection was performed. COMPARISON: Jun 05 2017 11:17am FINDINGS: Breast Composition: The breasts are heterogeneously dense, which may obscure small masses. There are no dominant masses or suspicious calcifications. No other significant abnormalities are identified. BI/SCREENING MAMM (CAD), BILAT IMPRESSION: Stable bilateral screening mammogram. Yearly follow-up mammogram recommended. (A) ASSESSMENT CATEGORY: BIRADS Category 2: Benign. A letter regarding these results will be sent to the patient by the facility within 30 days. Approximately 10% of breast cancers are not detected by mammography. A normal mammogram should not delay biopsy of a clinically suspicious abnormality. [id number] Electronically Signed: Ashley Strauss MD at 16:39 EDT Tel , Service support , CC: Kumar Mcguire MD; Alina Murguia NP Pharmacy Order Entry Technician: Signed INTERNAL MEDICINE Observed: 05/08/2018 Status: F Source: NAHOMY OFFICE VISIT 8:23 AM [facility] Internal Medicine [address] [place] [address] [place] [address] OFFICE VISIT Date of Service: 05/07/18 MR#: [id number] Acct: [id number] Name: TASNEEM BATISTA Rep #: [id number] : 1945 Provider: Alina Murguia NP Age/Sex: 73/F Location: [facility] [place].[facility] Status: Signed Intake Vital Signs05/07/18 Height 5 ft 4 in Intake Visit Reasons: 1 mo fu Chief Complaint: follow-up Is patient in pain?: Yes (neck) Pain scale (1-10): 3 Allergies codeine Allergy (Severe, Verified 05/07/18 09:53) Unknown Sulfa (Sulfonamide Antibiotics) Allergy (Severe, Verified 05/07/18 09:53) Unknown penicillin Allergy (Severe, Uncoded 05/07/18 09:53) Unknown Medications blood sugar diagnostic strips See Dose Instructions .ROUTE .MEDSUPPLY #20 ea 08/07/17 [History Confirmed 05/07/18] calcium carbonate 600 mg(1,500 mg)-vitamin D3 800 unit chewable tablet 1 tab PO BID 08/29/17 [History Confirmed 05/07/18] lisinopril 10 mg tablet 10 mg PO QDAY #90 tab 09/11/17 [Rx Confirmed 05/07/18] insulin glargine (U-100) 100 unit/mL (3 mL) subcutaneous pen 12 unit SC QDAY #15 ml 12/10/17 [Rx Confirmed 05/07/18] insulin lispro (U-100) 100 unit/mL subcutaneous pen See Label Instructions SC TID #15 ml 12/10/17 [Rx Confirmed 05/07/18] gabapentin 300 mg capsule 300 mg PO QHS #60 cap 04/09/18 [Rx Confirmed 05/07/18] atorvastatin 40 mg tablet 40 mg PO QDAY #90 tab 04/18/18 [Rx Confirmed 05/07/18] Post menopausal: Yes PFSH Medical History Arthritis (Chronic) Back problem (Chronic) Pancreatitis (Acute) Diabetes type 1, controlled (Chronic) Osteoarthritis (Chronic) Carpal tunnel syndrome (Acute) Gallstones (Acute) History of carpal tunnel release (Acute) Skin cancer (Acute) Surgical History H/O: hysterectomy (Acute) History of cholecystectomy (Acute) History of tonsillectomy (Acute) History of total knee arthroplasty (Acute) Family History Mother Asthma Liver disease Father CVA (cerebral vascular accident) Social History Smoking Status: Never smoker second hand exposure: No alcohol intake: never substance use type: does not use what type of physical activity do you participate in: walking frequency: daily HPI HPI Chief Complaint: follow-up Details: TASNEEM BATISTA, is a 73 F who presents to the office today for follow-up. Her past medical history includes osteopenia, back problem, pancreatitis, type 1 diabetes, osteoarthritis, hyperlipidemia, and spinal stenosis. Patient stated that her hypertension is well controlled at home. She states she does not check her blood pressure routinely at home and she denies side effects from her medication. Her had a routine appointment today with endocrinology which is following her diabetes management. Today her hemoglobin A1c was 5.9%. Patient will continue her diabetes regimen. On April 30, 2018 patient followed up with Dr. Degroot in regards to her spinal stenosis of her neck. Dr. Degroot prescribed Voltaren gel which she stated today was denied by her insurance. Patient states that she rates her pain to her left lateral side of neck 6 out of 10 and describes the pain as a dull ache but intermittent sharp pains with movement, but is localized and does not radiate. She states that she does not take [id number] pain medication or heat and ice at this time. She has been following up with [facility] chiropractor for the past couple weeks which she stated has been effective for her neck pain. She did undergo physical therapy for 6 weeks, but states that the chiropractor has more benefits than therapy. Denies any other aggravating or alleviating factors at this time. Denies need at this time to have a referral for pain management. The patient otherwise denies any fever, chills, headache, dizziness, nausea, vomiting, shortness of breath, chest pain or pressure, palpitations, orthopnea, lower extremity edema, syncope or presyncopal episodes. ROS Const Constitutional: No weight change, body ache, chills, fatigue, sleep problems, fever(s), change in appetite, snoring, weakness, frequent falls, headache(s) or excessive sweating Eyes Eyes: No change in vision, eye pain, light sensitivity or blurry vision ENT ENT: Positive for neck pain (left lateral side rates 6/10 constant dull ache, but sharp with movement); no headache(s), abnormal hearing, ear pain, tinnitus, nasal congestion or sore throat Resp Respiratory: No snoring, cough, shortness of breath or wheezing Cardio Cardiology: No excessive sweating, chest pain at rest, chest pain with exertion, shortness of breath, dyspnea on exertion, palpitations, orthopnea or lightheadedness Gastro GI: No abdominal pain, change in bowel habits, constipation, diarrhea, vomiting, nausea/dyspepsia or cramping Genitourinary-Female: No burning urination, painful urination, urinary incontinence, urinary frequency, abnormal vaginal bleeding, pelvic pain or other Musc Musculoskeletal: Positive for neck pain (left lateral side rates 6/10 constant dull ache, but sharp with movement); no abnormal walking, joint pain, back pain, limited range of motion, numbness or tingling Skin Skin: No redness, dry skin, itching, lesions, wounds or rash Neuro Neurology: No weakness, frequent falls, headache(s), abnormal hearing, abnormal walking, numbness, tingling, abnormal speech, dizziness or memory loss Psych Psychiatric: No change in appetite, No memory loss, No anxiety, No depression, No Thoughts of harming yourself/Others Endo Endocrine: No fatigue, excessive sweating, cold intolerance, increased thirst/drinking, heat intolerance, flushing or increased hunger Aller/Imm Allergy/Immunologic: No wheezing, itchy eyes, hives or seasonal allergy symptoms Oliver/Lymp Hematologic/Lymphatic: No easy bleeding, easy bruising or enlarged lymph nodes Exam Const General: cooperative, comfortable, no acute distress Nutritional Appearance: average body habitus, well nourished Orientation: alert, oriented x3 Limitations: mental status not altered [facility] Head: normal to inspection Ears: hearing grossly normal bilaterally Nose: external nose normal Mouth: oral mucosae normal, tongue normal, moist mucous membranes Teeth and gingiva: dentition normal Throat: posterior oropharynx normal, uvula midline Eyes General: appearance normal, both eyes and all related structures Neck Neck: normal visual inspection, tender (tender with palpation left lateral side of neck ) Neck mass: No Resp Effort AND Inspection: normal respiratory effort, able to speak in complete sentences, normal respiratory pattern, symmetric chest movement, no audible wheezes, no cough Auscultation: Bilateral: Clear to Auscultation Cardio Palpation: normal PMI Rate: regular rate Heart Sounds: S1 normal, S2 normal, normal S1 and S2, no click, no gallops, no murmurs, no rubs GI Inspection: normal to inspection Auscultation: normal bowel sounds, no hyperactive bowel sounds, no hypoactive bowel sounds Palpation: soft, no hepatosplenomegaly Musc Musculoskeletal: Yes decreased ROM (with neck turning side to side ) Cervical Spine: pain with cervical ROM; no Spurling sign Skin General: no rashes or lesions noted, elasticity normal, turgor normal Lesions: no lesions Rashes: no rashes Neuro General: alert, awake, oriented x3, CN's II-XI intact bilaterally Speech: speech normal Gait: normal gait Motor: muscle tone normal throughout Extrem General: normal to inspection, normal gait, no edema, no pedal edema Psych Appearance: grossly normal Mental Status: mental status grossly normal Affect: normal affect Attitude: cooperative Thought Process: normal Assessment AND Plan 1. Spinal stenosis of cervical region M48.02 Plan Patient will continue to follow-up chiropractor as she has seen the most benefit through this treatment modality. Continue with the use of analgesics [id number] as needed. Patient to follow-up as previously scheduled. 2. Controlled diabetes mellitus type 1 without complications E10.9 A1c 5.9 Continues on MDI without any issues. Sl low BG in am with occ BG in the 50 range. Will continue to monitor at bedtime and consume snack as needed. Plan Diabetes: Stable at this time. The patient's most recent A1c was reviewed and was at goal. Will not make any adjustments to their diabetic medication regimen at this time. Discussed with patient lifestyle changes, risk factor reduction, and the benefits of maximizing nutrition and exercise. Patient verbalized understanding. Patient to follow-up with endocrinology routinely. Patient is current on their yearly eye exam and is seeing podiatry for their diabetic foot exam. Patient will continue to follow-up with endocrinology. Discussed red flag symptoms and when to seek urgent medical attention. 3. Hypertension I10 Plan Hypertension: Controlled on current medications, will not make any adjustments at this time. Will continue with current medication regimen, risk factor reduction, and lifestyle modifications. Discussed dietary changes that should be considered which include reducing the amount of sodium intake. Discussed red flag symptoms and when to seek urgent medical attention. Plan Detail Other Orders Orders: Additional Comments Pt due for lipid panel and mammogram, both ordered at visit. Follow Up 6 months or sooner if needed Coding Level of Care Code Off vis,est,level 3 Diagnoses Spinal stenosis of cervical region M48.02 Controlled diabetes mellitus type 1 without complications E10.9 Diabetes mellitus complication status: without complication Hypertension I10 05/08/18 0823 <Electronically signed by Alina GALLO> Date Alina GALLO Cosigner Signature: Date (if applicable) CC: ENDOCRINOLOGY VISIT Observed: 05/08/2018 Status: F Source: CORRY REPORT 8:20 AM [facility] REPOSITORY [facility] [address] [place] [address] [address] [place] [address] OFFICE VISIT Date of Service: 05/07/18 MR#: [id number] Acct: [id number] Name: TASNEEM BATISTA Rep #: [id number] : 1945 Provider: Jenny Laboy NP Age/Sex: 73/F Location: [facility] [place] Status: Signed HPI History of present illness History of present illness Details: TASNEEM BATISTA, is a 73 F who presents to the office today for a follow-up of her diabetes type 1. She has a past medical history which is significant for that of type 1 diabetes, hyperlipidemia, osteoarthritis, spinal stenosis (seen Dr. Pelletier pain management), hypertension, and osteopenia. The patient states that she has been doing well since her previous office visit Most recent A1c was 5.9. She has occ episodes of hypoglycemia Taking her insulins appropriately. She does follow with podiatry. She is up-to-date on her yearly ophthalmology exam. Since our last visit she denies excessive thirst, increased frequency of urination, chest pain or dyspnea. Follows a diabetic diet, Is compliant with medication and is tolerating without side effects. SMBG 6-8 times daily 70-140 average She is tolerating her statin therapy well and states that she has started her calcium and vitamin D supplementation for osteopenia, She denies any recent fractures or falls. She states that she is up-to-date on her influenza and pneumonia vaccine. At time of visit: -Pt denies symptoms of hypertensive emergency (CP,SOB,HELLER, or blurred vision) and hypotension(dizziness or lightheadedness) -Pt denies symptoms of hypoglycemia ( sweaty, confusion, anxiety, tremor, hunger, palpitations) and hyperglycemia ( polydipsia, polyuria) -Pt denies potential medication adverse effect. Hypoglycemia Aware of hypoglycemia:yes Able to self treat low BG: Yes Frequent low Blood sugar: No Has supply of glucagon: Exam Const General: comfortable, no acute distress Nutritional Appearance: average body habitus HENMT Head: normal to inspection, atraumatic Ears: hearing grossly normal bilaterally Mouth: oral mucosae normal, moist mucous membranes Eyes General: appearance normal, both eyes and all related structures Eyelids: eyelids normal Conjunctivae: conjunctivae normal Sclera: sclerae normal Neck Neck: normal visual inspection, full ROM Neck mass: No Resp Effort AND Inspection: normal respiratory effort, able to speak in complete sentences, symmetric chest movement Auscultation: Bilateral: Clear to Auscultation Cardio Rate: regular rate Rhythm: regular rhythm Heart Sounds: S1 normal, S2 normal, no gallops, no murmurs, no rubs GI Inspection: normal to inspection Auscultation: normal bowel sounds Palpation: soft, no guarding Skin General: no rashes or lesions noted Wounds: no wounds Diabetic Foot Pulses: L dorsalis pedis pulse: normal, R dorsalis pedis pulse: normal Monofilament test: Left foot: normal, Right foot: normal Neuro General: gait normal, normal light touch, pain and propioception Cognition: normal cognition Speech: speech normal Gait: normal gait Extrem General: normal to inspection Psych Appearance: well kempt Mental Status: mental status grossly normal Mood: congruent mood Affect: normal affect Speech and Movement: speech and movement normal Attitude: cooperative Thought Process: normal Judgment: judgment good Type: type 1, insulin-requiring Glucose control symptoms: Reports hypoglycemic with activity Weight and fatigue symptoms: Denies snoring Cardiopulmonary symptoms: Denies chest pain at rest, dyspnea on exertion, lightheadedness or myalgias GI symptoms: Denies constipation, diarrhea, nausea/dyspepsia or vomiting Skin and extremity symptoms: Denies tingling/numbness/burning Other symptoms: Denies blurry vision or change in vision Pertinent visit history: Denies recent visit to ER or recent glucagon injection Self monitoring: Yes Glucometer type: jaime sensor Dietary compliance: Diabetes: good Diabetes education in past year: Yes Glucose testing: demonstrates correct use of meter Physical activity: regular Intake Vital Signs05/07/18 Height 5 ft 4 in 05/07/18 Weight: 138 lb 8 oz 05/07/18 Body Mass Index (BMI) 23.8 05/07/18 Blood Pressure 112/74 05/07/18 Blood Pressure Location Lt popliteal 05/07/18 Blood Pressure Position Sitting Intake Visit Reasons: 3 M FU Chief Complaint: follow-up visit Rrt Required: No Accompanied by: Self Is patient in pain?: No Allergies codeine Allergy (Severe, Verified 05/07/18 09:53) Unknown Sulfa (Sulfonamide Antibiotics) Allergy (Severe, Verified 05/07/18 09:53) Unknown penicillin Allergy (Severe, Uncoded 05/07/18 09:53) Unknown Medications blood sugar diagnostic strips See Dose Instructions .ROUTE .MEDSUPPLY #20 ea 08/07/17 [History Confirmed 05/07/18] calcium carbonate 600 mg(1,500 mg)-vitamin D3 800 unit chewable tablet 1 tab PO BID 08/29/17 [History Confirmed 05/07/18] lisinopril 10 mg tablet 10 mg PO QDAY #90 tab 09/11/17 [Rx Confirmed 05/07/18] insulin glargine (U-100) 100 unit/mL (3 mL) subcutaneous pen 12 unit SC QDAY #15 ml 12/10/17 [Rx Confirmed 05/07/18] insulin lispro (U-100) 100 unit/mL subcutaneous pen See Label Instructions SC TID #15 ml 12/10/17 [Rx Confirmed 05/07/18] gabapentin 300 mg capsule 300 mg PO QHS #60 cap 04/09/18 [Rx Confirmed 05/07/18] atorvastatin 40 mg tablet 40 mg PO QDAY #90 tab 04/18/18 [Rx Confirmed 05/07/18] Is last menstrual period known: No Post menopausal: Yes Patient : No Nurse's Note: blood sugars : low : 50's high : 200's [facility] Medical History Arthritis (Chronic) Back problem (Chronic) Pancreatitis (Acute) Diabetes type 1, controlled (Chronic) Osteoarthritis (Chronic) Carpal tunnel syndrome (Acute) Gallstones (Acute) History of carpal tunnel release (Acute) Skin cancer (Acute) Surgical History H/O: hysterectomy (Acute) History of cholecystectomy (Acute) History of tonsillectomy (Acute) History of total knee arthroplasty (Acute) Family History Mother Asthma Liver disease Father CVA (cerebral vascular accident) Social History Smoking Status: Never smoker second hand exposure: No alcohol intake: never substance use type: does not use what type of physical activity do you participate in: walking frequency: daily ROS Const Constitutional: No anorexia, body ache, chills, fatigue, fever(s), frequent falls, decreased energy, malaise, night sweats, weakness, weight change, sleep problems, abnormal sleep pattern, change in appetite, other, headache(s), snoring or excessive sweating Eyes Eyes: No blurry vision, change in vision, double vision, discharge, dry eyes, bulging eyes, floaters, visual disturbances, eye pain, light sensitivity, spots in vision, tunnel vision or other ENT ENT: Positive for neck pain; no abnormal hearing, ear pain, ear discharge, ear pressure, hearing loss, tinnitus, dizziness/vertigo, balance problems, nosebleed/epistaxis, nasal congestion, nasal obstruction, nose pain, sinus pressure, sinus pain, nasal discharge, post nasal drip, headache(s), facial pain, dental pain, dry mouth, bad breath, hoarseness, lip swelling, mouth lesions, mouth pain, sore throat, tongue swelling, throat swelling, other or difficulty swallowing Resp Respiratory: No cough, change in phlegm color, chest congestion, excessive phlegm production, hemoptysis, pain on inspiration, shortness of breath, pain with cough, snoring, stridor, wheezing or other Cardio Cardiology: No chest pain at rest, chest pain with exertion, leg pain with exertion, excessive sweating, shortness of breath, dyspnea on exertion, generalized swelling, irregular heart rhythm, lightheadedness, orthopnea, radiating jaw, neck or arm pain, fast heart rate, slow heart rate, palpitations or other Gastro GI: No abdominal pain, belching, bloating, change in bowel habits, change in stool character, coffee ground emesis, constipation, cramping, diarrhea, heartburn, difficulty swallowing, feeling full early, excessive flatus, incontinent of stools, Vomiting blood/hematemesis, blood in stool, loose stools, Black,tarry stools, nausea/dyspepsia, pain with swallowing, vomiting or other Genitourinary-Female: No difficulty urinating, burning urination, painful urination, urinary incontinence, urinary frequency, urinary urgency, urinary hesitancy, urinary retention, blood in urine, Frequent nighttime urination/ nocturia, post void dribbling, suprapubic fullness, side pain, sexual problems, genital lesions, genital itching, hot flashes, abnormal periods, abnormal vaginal bleeding, absent period, painful periods, light periods, heavy periods, difficulty getting , painful intercourse, pelvic pain, vaginal dryness, vaginal odor, Vaginal Itching or other Musc Musculoskeletal: Positive for neck pain; no abnormal walking, joint pain, back pain, deformity, joint swelling, limited range of motion, loss of height, muscle cramps, muscle weakness, decreased muscle mass, body aches, numbness, radiating pain into limb, stiffness, tingling or other Skin Skin: No acne, hair loss, change in hair, nail changes, boil, change in skin color, dry skin, redness, excessive hair growth, yellowing of the skin, lesions, itching, rash, skin pain, skin ulcer, sores, skin swelling, wounds or other Breast Breast: No other Neuro Neurology: No frequent falls, weakness, visual disturbances, abnormal hearing, headache(s), abnormal walking, numbness or tingling Psych Psychiatric: No abnormal sleep pattern, No change in appetite Endo Endocrine: No fatigue, other or excessive sweating Aller/Imm Allergy/Immunologic: No lip swelling, tongue swelling, throat swelling, wheezing or itchy eyes Assessment AND Plan Problems 1. Controlled diabetes mellitus type 1 without complications E10.9 2. 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 E10.69; E78.5 Plan Doing well. A1c remains 5.9 Labs done this am. Using jaime sensor. Finds difference in am from sensor and meter. Ask to double check BG in am with meter to be sure she is not missing any low BG when she first awakens due to hx of low BG during night. We did lower her lantus by 1 unit at last visit due to low BG pattern Continue with current regimen BP in range Plan Detail Additional Comments 1. Please schedule follow up in 3 months. 2. Lab work one week before appointment. 3. Discussed importance of regular exercise and recommend starting or continuing a regular exercise program for good health. 4. The patient was encouraged to lose weight for good health 5. The importance of monitoring blood sugar regularly was reviewed. 6. The importance of monitoring the HBA1c level regularly was reviewed. 7. The importance of prper foot care and regularly checking feet to prevent sores and loss of limbs was reviewed. 8. The importance of keeping BP at or below 130/80 to prevent stroke, heart attacks, kidney failure, blindness was reviewed. Spent approximately 30 minutes with patient with over 50% of time spent in discussion and counseling regarding medication adjustment, symptoms and treatment of hypoglycemia, diet adherence, and checking BG before driving. Coding Level of Care Code Off vis,est,level 4 Diagnoses Controlled diabetes mellitus type 1 without complications E10.9 Diabetes mellitus complication status: without complication 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 E10.69; E78.5 05/08/18 0820 <Electronically signed by Jenny GALLO> Date Jenny GALLO Cosigner Signature: Date (if applicable) CC: LIPID PROFILE Collected: 05/07/2018 Status: F Source: NAHOMY 1:38 PM [facility] [place] REPOSITORY TYPE CODE TESTS RESULT OUT OF RANGE REFERENCE UNITS LAB L501.4900 200 mg/dL Normal CHOL 180 Result Comment: <200 mg/dL Desirable 200-240 mg/dL Borderline >240 mg/dL High Risk LAB L501.5000 mg/dL Normal TRIG 45 Result Comment: The drugs N-Acetylcysteine and Metamizole may falsely depress this assay. Serum Triglycerides Reference Interval Normal <150 mg/dL Borderline high 150 - 199 mg/dL High 200 - 499 mg/dL Very High > or = 500 mg/dL LAB L501.6400 mg/dL Normal HDL 67 Result Comment: The drugs N-Acetylcysteine and Metamizole may falsely depress this assay. Reference Range HDL <40 mg/dL Low HDL Cholesterol HDL >or= 60 mg/dL High HDL Cholesterol LAB L501.6500 0-130 mg/dL Normal LDL 104 LAB L501.6600 5-40 mg/dL Normal VLDL 9 Performed By: #### L500.4100 #### [facility] [address] [place], [address] CREATININE, URINE Collected: 05/07/2018 Status: F Source: [place]HOM[place] (RANDOM) 8:23 AM [facility] REPOSITORY TYPE CODE TESTS RESULT OUT OF RANGE REFERENCE UNITS LAB L501.1200 NO RANGE EST. mg/dL Normal UR CREAT 61.80 Performed By: #### L501.1200, L502.0500 #### [facility] [address] [place], [address] MICROALBUMIN,RANDOM URINE Collected: Status: F Source: NAHOMY 05/07/2018 8:23 AM [facility] REPOSITORY TYPE CODE TESTS RESULT OUT OF RANGE REFERENCE UNITS LAB L502.0500 NO RANGE EST. mg/L Normal 50.6 MICROALBUMIN ,UR Performed By: #### L501.1200, L502.0500 #### [facility] [address] [place], [address] COMPREHENSIVE METABOLIC Collected: 05/07/2018 Status: F Source: NAHOMY PROFIL 8:23 AM [facility] REPOSITORY TYPE CODE TESTS RESULT OUT OF RANGE REFERENCE UNITS LAB L501.0100 74-106 mg/dL Normal GLU 76 Result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 Therapist That Will Oversee The Plan Of Care: Baldobranden Carlos Start of Care Date: 03/15/18 Onset Date: 01/13/18 Plan of Care Certification Date: 03/15/18 Patient Identified by Name and Date of : Yes REHABILITATION AND SPORTS THERAPY PHYSICAL THERAPY PROGRESS REPORT PLAN OF CARE UPDATE: Assessment: Tasneem Batista exhibits difficulty with increased tightness and soreness with increased activity and improvements in cervical AROM, cervical and UE strength, overall pain and function. She continues to be limited with physical activities. She is progressing as expected towards her therapy goals as demonstrated by: pain levels, documented subjective information on progress and documented objective information regarding ADL's, strength, range of motion and overall function. She will benefit from continued skilled therapy requiring cervical strengthening and manual techniques for soft tissue restrictions and pain in order to further improve cervical AROM, strength, posture, function and decrease pain. Functional gains: Improved postural alignment Improved postural awareness Improved sleep Increased endurance / activity tolerance Increased independence with HEP Increased ROM Increased strength Decreased intensity of pain Decreased frequency of pain Goals for Episode of Care: created on 03/15/18 through 05/16/18 [place] in home exercise program. Patient will decrease pain rating by 2 points to meet minimal clinical important difference for numeric pain rating scale. Patient will increase active ROM of cervical spine L lateral flexion by 15 degrees to allow pt to improved performance of ADLs and reduce pain and restrictions. Patient will increase strength of cervical musculature to 4 to 4+/5 to allow for return to prior functional status, improve posture and reduce pain. Perform all daily activities with decreased report of symptoms/pain in 4-8 weeks. Demonstrate improvement on functional score: Patient will improve his/her AM-PAC T-scale score by 4 points to indicate a Minimal Clinical Important Difference . Improve postural awareness. G CODE REPORTING Based on clinical assessment and the score on the AM-PAC Scale Score Assessment Tool, the G code and corresponding severity modifiers are documented below. Evaluation: 03/15/2018 Current Status: Carrying, Moving and Handling Objects: G8984 CJ 20-39% impaired Goal Status: Carrying, Moving and Handling Objects: G8985 CI 1-19% impaired Planned Interventions, Frequency, and Duration: , Patient to be seen for PLAN FOR NEXT VISIT: Pt will continue with HEP and return in 2 weeks for follow up assessment. SUBJECTIVE: Pt states she mowed yesterday and is feeling very tight today. She describes lots of turning her head and UE using the steering wheel. Overall she feels she has improved, but is worse when she is busier (doing a lot of activities, housework or yardwork). Pain Score: 0/10 Pain Location: Neck - Right;Neck - Left Description: Tightness (pain with certain movements) Frequency: Intermittent Post Treatment Pain Score: 0/10 Post Treatment Pain Description: (a little looser) OBJECTIVE MEASURES WITH LEVEL OF FUNCTION: Spine Palpation L Cervical Spine Palpation Tenderness: Upper trapezius Cervical Spine AROM Cervical Flexion (degrees)?: 55 Degrees Cervical Extension (degrees)?: 60 Degrees (L upper trap) Cervical Side-Bend Right (degrees): 50 Degrees Cervical Side-Bend Left (degrees)?: 40 Degrees (tight) Cervical Rotation Right (degrees)?: 74 Degrees Cervical Rotation Left (degrees)?: 70 (pulling L ear) UE and Cervical Strength Cervical Strength: 4-/5 R UE Strength: 4+/5 TREATMENT: Therapeutic Exercise: 1: UBE seat height 2, seat 5, pedals 5 x 6 minutes. 2: orange band resisted scapular retractions 5 sec holds, 2x10. 3: posterior shoulder circles 1 x 20 reps 4: upper trap stretches 30 sec holds x 3 each side 5: B levator scapula stretches 3x30 seconds with no hands. Skilled Intervention: Patient was educated in proper exercise technique and purpose for exercises. Reviewed and educated patient on additions/changes for home exercise program and pt is to continue with current HEP. Skilled judgment was provided in selection of appropriate interventions. Correct performance of therapeutic exercises was facilitated with verbal cuing. Patient education as noted. Objective measurements and reassessment. Manual Therapy: 1: supine manual traction with pull to tolerance and suboccipital releases x 13 minutes. 2: Lacrosse ball mobs B cervical and UT region x 10 minutes. Skilled Intervention: Manual skills to improve joint mobility, ROM, and decrease pain. Utilized anatomy knowledge of the therapist, and assessment of patient's response to intervention. Billing: [facility]: Therapeutic Exercise ([id number]): 1:1 time: 20 minutes (1 unit: 8-22 mins) Manual Therapy ([id number]): 1:1 time: 23 minutes (2 units: 23- 37 mins) Total time: 43 minutes Carlos Brar PT CNTHERAPY Observed: 04/17/2018 Status: COMPLETED Source: [place] 11:00 AM [facility] REPOSITORY OT/PT/Speech Visit (PTWS) TASNEEM BATISTA ([id number]) 1945 F Date Time Provider Department 04/17/18 11:00 AM CARLOS BRAR (PT) PTWS Date Time Provider Department Center 04/17/2018 11:00 AM [id number] BRAR (PT) PTWS [facility] Reason for Visit: PT Progress Note [7086] Primary Visit Diagnosis:Radiculopathy, cervical region [M54.12] Allergies As of Date: 04/17/2018 Noted Allergy Reaction CONTRAST DYE 05/09/2011 14 - Other: See Comments Comments: Face flushing and redness PENICILLINS 08/17/2009 2 - Rash SULFA (SULFONAMIDE ANTIBIOTICS) 08/17/2009 2 - Rash VICODIN (HYDROCODONE-ACETAMINOPHE*08/17/2009 5 - Intolerance Date Reviewed: 05/16/2016 Reviewed by: Krissy Mccartney LPN - Fully Assessed Prescriptions as of 04/17/2018 Sig: INSULIN LISPRO (U-100) 100 UN* Use 5 units with each meal KETOCONAZOLE 2 % SHAMPOO Apply 1 application to affect* CETIRIZINE 10 MG TABLET Take 1 tablet by mouth once d* INSULIN GLARGINE (U-100) 100 * 10-12 Units daily at bedtime. GABAPENTIN 300 MG CAPSULE Take 1 capsule by mouth daily* LISINOPRIL 10 MG TABLET Take 1 tablet by mouth once d* BLOOD SUGAR DIAGNOSTIC STRIPS Use as instructed. Tests blo* ATORVASTATIN 40 MG TABLET Take 1 tablet by mouth once d* PEN NEEDLE, DIABETIC 31 GAUGE* Use one needle per dose. 4 pe* CHOLECALCIFEROL (VITAMIN D3) * Take 2 capsules by mouth once* LANCETS Test blood sugar(s) 4 daily. * Progress Notes: Carlos Brar, PT 04/17/2018 1:10 PM Signed Episode Visit Count: 10 Therapist That Will Oversee The Plan Of Care: Carlos Brar Start of Care Date: 03/15/18 Onset Date: 01/13/18 Plan of Care Certification Date: 03/15/18 Patient Identified by Name and Date of : Yes REHABILITATION AND SPORTS THERAPY PHYSICAL THERAPY PROGRESS REPORT PLAN OF CARE UPDATE: Assessment: Tasneem Batista exhibits difficulty with increased tightness and soreness with increased activity and improvements in cervical AROM, cervical and UE strength, overall pain and function. She continues to be limited with physical activities. She is progressing as expected towards her therapy goals as demonstrated by: pain levels, documented subjective information on progress and documented objective information regarding ADL's, strength, range of motion and overall function. She will benefit from continued skilled therapy requiring cervical strengthening and manual techniques for soft tissue restrictions and pain in order to further improve cervical AROM, strength, posture, function and decrease pain. Functional gains: Improved postural alignment Improved postural awareness Improved sleep Increased endurance / activity tolerance Increased independence with HEP Increased ROM Increased strength Decreased intensity of pain Decreased frequency of pain Goals for Episode of Care: created on 03/15/18 through 05/16/18 [place] in home exercise program. Patient will decrease pain rating by 2 points to meet minimal clinical important difference for numeric pain rating scale. Patient will increase active ROM of cervical spine L lateral flexion by 15 degrees to allow pt to improved performance of ADLs and reduce pain and restrictions. Patient will increase strength of cervical musculature to 4 to 4+/5 to allow for return to prior functional status, improve posture and reduce pain. Perform all daily activities with decreased report of symptoms/pain in 4-8 weeks. Demonstrate improvement on functional score: Patient will improve his/her AM-PAC T-scale score by 4 points to indicate a Minimal Clinical Important Difference . Improve postural awareness. G CODE REPORTING Based on clinical assessment and the score on the AM-PAC Scale Score Assessment Tool, the G code and corresponding severity modifiers are documented below. Evaluation: 03/15/2018 Current Status: Carrying, Moving and Handling Objects: G8984 CJ 20-39% impaired Goal Status: Carrying, Moving and Handling Objects: G8985 CI 1-19% impaired Planned Interventions, Frequency, and Duration: , Patient to be seen for PLAN FOR NEXT VISIT: Pt will continue with HEP and return in 2 weeks for follow up assessment. SUBJECTIVE: Pt states she mowed yesterday and is feeling very tight today. She describes lots of turning her head and UE using the steering wheel. Overall she feels she has improved, but is worse when she is busier (doing a lot of activities, housework or yardwork). Pain Score: 0/10 Pain Location: Neck - Right;Neck - Left Description: Tightness (pain with certain movements) Frequency: Intermittent Post Treatment Pain Score: 0/10 Post Treatment Pain Description: (a little looser) OBJECTIVE MEASURES WITH LEVEL OF FUNCTION: Spine Palpation L Cervical Spine Palpation Tenderness: Upper trapezius Cervical Spine AROM Cervical Flexion (degrees)?: 55 Degrees Cervical Extension (degrees)?: 60 Degrees (L upper trap) Cervical Side-Bend Right (degrees): 50 Degrees Cervical Side-Bend Left (degrees)?: 40 Degrees (tight) Cervical Rotation Right (degrees)?: 74 Degrees Cervical Rotation Left (degrees)?: 70 (pulling L ear) UE and Cervical Strength Cervical Strength: 4-/5 R UE Strength: 4+/5 TREATMENT: Therapeutic Exercise: 1: UBE seat height 2, seat 5, pedals 5 x 6 minutes. 2: orange band resisted scapular retractions 5 sec holds, 2x10. 3: posterior shoulder circles 1 x 20 reps 4: upper trap stretches 30 sec holds x 3 each side 5: B levator scapula stretches 3x30 seconds with no hands. Skilled Intervention: Patient was educated in proper exercise technique and purpose for exercises. Reviewed and educated patient on additions/changes for home exercise program and pt is to continue with current HEP. Skilled judgment was provided in selection of appropriate interventions. Correct performance of therapeutic exercises was facilitated with verbal cuing. Patient education as noted. Objective measurements and reassessment. Manual Therapy: 1: supine manual traction with pull to tolerance and suboccipital releases x 13 minutes. 2: Lacrosse ball mobs B cervical and UT region x 10 minutes. Skilled Intervention: Manual skills to improve joint mobility, ROM, and decrease pain. Utilized anatomy knowledge of the therapist, and assessment of patient's response to intervention. Billing: [facility]: Therapeutic Exercise ([id number]): 1:1 time: 20 minutes (1 unit: 8-22 mins) Manual Therapy ([id number]): 1:1 time: 23 minutes (2 units: 23- 37 mins) Total time: 43 minutes Carlos Brar PT PROGRESS Observed: 04/15/2018 Status: COMPLETED Source: [place] 11:35 AM [facility] REPOSITORY O ID: [id number] Author: Carlos (Pt) Maykel Service: (none) Author Type: Physical Therapist Type: Progress Notes Filed: 04/15/2018 7:04 PM Note Text: Episode Visit Count: 9 Therapist That Will Oversee The Plan Of Care: Carlos Brar Start of Care Date: 03/15/18 Onset Date: 01/13/18 Plan of Care Certification Date: 03/15/18 Patient Identified by Name and Date of : Yes REHABILITATION AND SPORTS THERAPY PHYSICAL THERAPY TREATMENT NOTE ASSESSMENT: Tasneem Batista demonstrated difficulty with increase neck pain with pulling weeds in garden for 2 hours yesterday. She responded well the exercise and manual therapy techniques today with decrease pain at end of treatment. The patient will continue to benefit from continued skilled physical therapy for continuation of exercise and plan of care update. PLAN FOR NEXT VISIT: POC update next visit. Possibly add cervical isometrics. SUBJECTIVE: Patient reports she hurts today and she did a lot of weeding yesterday. She reports left greater than right neck are hurting today. Pain Score: 7/10 Pain Location: Neck - Right;Neck - Left Description: Aching Frequency: Intermittent Post Treatment Pain Score: 3/10 Pain Location: Neck - Right;Neck - Left Post Treatment Pain Description: Aching OBJECTIVE MEASURES WITH LEVEL OF FUNCTION: B upper trap with palpable tightness. TREATMENT: Therapeutic Exercise: 1: UBE seat height 2, seat 5, pedals 5 x 4 minutes. 2: seated shoulder pulleys flex and abd x 15 reps each 3: orange band resisted scapular retractions 5 sec holds, 1x15. 4: posterior shoulder circles 1 x 20 reps 5: cervical retractions 1 x 30 reps 6: upper trap stretches 30 sec holds x 2 each side 7: B levator scapula stretches 2x30 seconds with no hands. Skilled Intervention: Patient was educated in proper exercise technique and purpose for exercises. Skilled judgment was provided in selection of appropriate interventions. Correct performance of therapeutic exercises was facilitated with verbal cuing. Manual Therapy: 1: supine manual traction with pull to tolerance and suboccipital releases x 10 minutes. 2: Lacrosse ball mobs B cervical and UT region x 13 minutes. Skilled Intervention: Manual skills to improve joint mobility, ROM, and decrease pain. Utilized anatomy knowledge of the therapist, and assessment of patient's response to intervention. Billing: [facility]: Therapeutic Exercise ([id number]): 1:1 time: 20 minutes (1 unit: 8-22 mins) Manual Therapy ([id number]): 1:1 time: 23 minutes (2 units: 23- 37 mins) Total time: 43 minutes FATOUMATA Karimi PT CNTHERAPY Observed: 04/15/2018 Status: COMPLETED Source: [place] 10:00 AM [facility] REPOSITORY OT/PT/Speech Visit (PTWS) TASNEEM BATISTA ([id number]) 1945 F Date Time Provider Department 04/15/18 10:00 AM MALOU PEGUERO ([employer]) PTWS Date Time Provider Department Center 04/15/2018 10:00 AM [id number], NANCY ([employer]) PTWS [facility] Reason for Visit: Physical Therapy [503] Primary Visit Diagnosis:Radiculopathy, cervical region [M54.12] Allergies As of Date: 04/15/2018 Noted Allergy Reaction CONTRAST DYE 05/09/2011 14 - Other: See Comments Comments: Face flushing and redness PENICILLINS 08/17/2009 2 - Rash SULFA (SULFONAMIDE ANTIBIOTICS) 08/17/2009 2 - Rash VICODIN (HYDROCODONE-ACETAMINOPHE*08/17/2009 5 - Intolerance Date Reviewed: 05/16/2016 Reviewed by: Krissy Mccartney LPN - Fully Assessed Prescriptions as of 04/15/2018 Sig: INSULIN LISPRO (U-100) 100 UN* Use 5 units with each meal KETOCONAZOLE 2 % SHAMPOO Apply 1 application to affect* CETIRIZINE 10 MG TABLET Take 1 tablet by mouth once d* INSULIN GLARGINE (U-100) 100 * 10-12 Units daily at bedtime. GABAPENTIN 300 MG CAPSULE Take 1 capsule by mouth daily* LISINOPRIL 10 MG TABLET Take 1 tablet by mouth once d* BLOOD SUGAR DIAGNOSTIC STRIPS Use as instructed. Tests blo* ATORVASTATIN 40 MG TABLET Take 1 tablet by mouth once d* PEN NEEDLE, DIABETIC 31 GAUGE* Use one needle per dose. 4 pe* CHOLECALCIFEROL (VITAMIN D3) * Take 2 capsules by mouth once* LANCETS Test blood sugar(s) 4 daily. * Progress Notes: Carlos Brar, PT 04/15/2018 7:04 PM Signed Episode Visit Count: 9 Therapist That Will Oversee The Plan Of Care: Carlos Brar Start of Care Date: 03/15/18 Onset Date: 01/13/18 Plan of Care Certification Date: 03/15/18 Patient Identified by Name and Date of : Yes REHABILITATION AND SPORTS THERAPY PHYSICAL THERAPY TREATMENT NOTE ASSESSMENT: Tasneem Batista demonstrated difficulty with increase neck pain with pulling weeds in garden for 2 hours yesterday. She responded well the exercise and manual therapy techniques today with decrease pain at end of treatment. The patient will continue to benefit from continued skilled physical therapy for continuation of exercise and plan of care update. PLAN FOR NEXT VISIT: POC update next visit. Possibly add cervical isometrics. SUBJECTIVE: Patient reports she hurts today and she did a lot of weeding yesterday. She reports left greater than right neck are hurting today. Pain Score: 7/10 Pain Location: Neck - Right;Neck - Left Description: Aching Frequency: Intermittent Post Treatment Pain Score: 3/10 Pain Location: Neck - Right;Neck - Left Post Treatment Pain Description: Aching OBJECTIVE MEASURES WITH LEVEL OF FUNCTION: B upper trap with palpable tightness. TREATMENT: Therapeutic Exercise: 1: UBE seat height 2, seat 5, pedals 5 x 4 minutes. 2: seated shoulder pulleys flex and abd x 15 reps each 3: orange band resisted scapular retractions 5 sec holds, 1x15. 4: posterior shoulder circles 1 x 20 reps 5: cervical retractions 1 x 30 reps 6: upper trap stretches 30 sec holds x 2 each side 7: B levator scapula stretches 2x30 seconds with no hands. Skilled Intervention: Patient was educated in proper exercise technique and purpose for exercises. Skilled judgment was provided in selection of appropriate interventions. Correct performance of therapeutic exercises was facilitated with verbal cuing. Manual Therapy: 1: supine manual traction with pull to tolerance and suboccipital releases x 10 minutes. 2: Lacrosse ball mobs B cervical and UT region x 13 minutes. Skilled Intervention: Manual skills to improve joint mobility, ROM, and decrease pain. Utilized anatomy knowledge of the therapist, and assessment of patient's response to intervention. Billing: [facility]: Therapeutic Exercise ([id number]): 1:1 time: 20 minutes (1 unit: 8-22 mins) Manual Therapy ([id number]): 1:1 time: 23 minutes (2 units: 23- 37 mins) Total time: 43 minutes Malou Peguero PT-Venus Brar PT Previous Version Follow-up and Disposition History Recorded PROGRESS Observed: 04/10/2018 Status: COMPLETED Source: [place] 9:35 AM [facility] REPOSITORY O ID: [id number] Author: Carlos (Pt) Maykel Service: (none) Author Type: Physical Therapist Type: Progress Notes Filed: 04/10/2018 10:40 AM Note Text: Episode Visit Count: 8 Therapist That Will Oversee The Plan Of Care: Carlos Brar Start of Care Date: 03/15/18 Onset Date: 01/13/18 Plan of Care Certification Date: 03/15/18 Patient Identified by Name and Date of : Yes REHABILITATION AND SPORTS THERAPY PHYSICAL THERAPY TREATMENT NOTE ASSESSMENT: Tasneem Bennett Lester demonstrated improvements in shoulder posturing at end of today's session and progression to resisted scapular retractions. The patient will continue to benefit from continued skilled physical therapy for ROM, soft tissue restrictions, posture and pain. PLAN FOR NEXT VISIT: Continue with manual techniques and exercise. May add cervical isometric strengthening (add to HEP if tolerates well). SUBJECTIVE: Pt reports feeling better. States compliance with HEP and feels the shoulder circles really help when she feels she is tensing her shoulders up. Pain Score: 2/10 Pain Location: Neck - Left Post Treatment Pain Score: 2/10 Pain Location: Neck - Left Post Treatment Pain Description: (Pt states it feels looser, but no change pain level.) OBJECTIVE MEASURES WITH LEVEL OF FUNCTION: Posture / Alignment Posture: (Pt demonstrated decreased rounded shld posture end of visit ) TREATMENT: Therapeutic Exercise: 1: UBE seat height 2, seat 5, pedals 5 x 4 minutes. 2: seated shoulder pulleys flex and abd x 15 reps each 3: orange band resisted scapular retractions 5 sec holds, 1x15. 4: posterior shoulder circles 1 x 30 reps 5: cervical retractions 1 x 30 reps 6: upper trap stretches 30 sec holds x 3 each side 7: B levator scapula stretches 2x30 seconds with no hands. Skilled Intervention: Patient was educated in proper exercise technique and purpose for exercises. Reviewed and educated patient on additions/changes for home exercise program and pt to continue current HEP. Skilled judgment was provided in selection of appropriate interventions. Correct performance of therapeutic exercises was facilitated with verbal and visual cuing. Patient education as noted. Manual Therapy: 1: supine manual traction with pull to tolerance and suboccipital releases x 12 minutes. 2: Lacrosse ball mobs B cervical and UT region x 8 minutes. Skilled Intervention: Manual skills to improve joint mobility, ROM, and decrease pain. Utilized anatomy knowledge of the therapist, and assessment of patient's response to intervention. Billing: [facility]: Therapeutic Exercise ([id number]): 1:1 time: 25 minutes (2 units: 23-37 mins) Manual Therapy ([id number]): 1:1 time: 20 minutes (1 unit: 8-22 mins) Total time: 45 minutes Carlos Brar PT CNTHERAPY Observed: 04/10/2018 Status: COMPLETED Source: [place] 9:30 AM [facility] REPOSITORY OT/PT/Speech Visit (PTWS) TASNEEM BATISTA ([id number]) 1945 F Date Time Provider Department 04/10/18 9:30 AM CARLOS BRAR (PT) PTWS Date Time Provider Department Center 04/10/2018 9:30 AM [id number] BRAR (PT) PTWS [facility] Reason for Visit: Physical Therapy [503] Primary Visit Diagnosis:Radiculopathy, cervical region [M54.12] Allergies As of Date: 04/10/2018 Noted Allergy Reaction CONTRAST DYE 05/09/2011 14 - Other: See Comments Comments: Face flushing and redness PENICILLINS 08/17/2009 2 - Rash SULFA (SULFONAMIDE ANTIBIOTICS) 08/17/2009 2 - Rash VICODIN (HYDROCODONE-ACETAMINOPHE*08/17/2009 5 - Intolerance Date Reviewed: 05/16/2016 Reviewed by: Krissy Mccartney LPN - Fully Assessed Prescriptions as of 04/10/2018 Sig: INSULIN LISPRO (U-100) 100 UN* Use 5 units with each meal KETOCONAZOLE 2 % SHAMPOO Apply 1 application to affect* CETIRIZINE 10 MG TABLET Take 1 tablet by mouth once d* INSULIN GLARGINE (U-100) 100 * 10-12 Units daily at bedtime. GABAPENTIN 300 MG CAPSULE Take 1 capsule by mouth daily* LISINOPRIL 10 MG TABLET Take 1 tablet by mouth once d* BLOOD SUGAR DIAGNOSTIC STRIPS Use as instructed. Tests blo* ATORVASTATIN 40 MG TABLET Take 1 tablet by mouth once d* PEN NEEDLE, DIABETIC 31 GAUGE* Use one needle per dose. 4 pe* CHOLECALCIFEROL (VITAMIN D3) * Take 2 capsules by mouth once* LANCETS Test blood sugar(s) 4 daily. * Progress Notes: Carlos Brar PT 04/10/2018 10:40 AM Signed Episode Visit Count: 8 Therapist That Will Oversee The Plan Of Care: Carlos Brar Start of Care Date: 03/15/18 Onset Date: 01/13/18 Plan of Care Certification Date: 03/15/18 Patient Identified by Name and Date of : Yes REHABILITATION AND SPORTS THERAPY PHYSICAL THERAPY TREATMENT NOTE ASSESSMENT: Tasneem Batista demonstrated improvements in shoulder posturing at end of today's session and progression to resisted scapular retractions. The patient will continue to benefit from continued skilled physical therapy for ROM, soft tissue restrictions, posture and pain. PLAN FOR NEXT VISIT: Continue with manual techniques and exercise. May add cervical isometric strengthening (add to HEP if tolerates well). SUBJECTIVE: Pt reports feeling better. States compliance with HEP and feels the shoulder circles really help when she feels she is tensing her shoulders up. Pain Score: 2/10 Pain Location: Neck - Left Post Treatment Pain Score: 2/10 Pain Location: Neck - Left Post Treatment Pain Description: (Pt states it feels looser, but no change pain level.) OBJECTIVE MEASURES WITH LEVEL OF FUNCTION: Posture / Alignment Posture: (Pt demonstrated decreased rounded shld posture end of visit ) TREATMENT: Therapeutic Exercise: 1: UBE seat height 2, seat 5, pedals 5 x 4 minutes. 2: seated shoulder pulleys flex and abd x 15 reps each 3: orange band resisted scapular retractions 5 sec holds, 1x15. 4: posterior shoulder circles 1 x 30 reps 5: cervical retractions 1 x 30 reps 6: upper trap stretches 30 sec holds x 3 each side 7: B levator scapula stretches 2x30 seconds with no hands. Skilled Intervention: Patient was educated in proper exercise technique and purpose for exercises. Reviewed and educated patient on additions/changes for home exercise program and pt to continue current HEP. Skilled judgment was provided in selection of appropriate interventions. Correct performance of therapeutic exercises was facilitated with verbal and visual cuing. Patient education as noted. Manual Therapy: 1: supine manual traction with pull to tolerance and suboccipital releases x 12 minutes. 2: Lacrosse ball mobs B cervical and UT region x 8 minutes. Skilled Intervention: Manual skills to improve joint mobility, ROM, and decrease pain. Utilized anatomy knowledge of the therapist, and assessment of patient's response to intervention. Billing: [facility]: Therapeutic Exercise ([id number]): 1:1 time: 25 minutes (2 units: 23-37 mins) Manual Therapy ([id number]): 1:1 time: 20 minutes (1 unit: 8-22 mins) Total time: 45 minutes Carlos Brar, PT PROGRESS Observed: 04/08/2018 Status: COMPLETED Source: [place] 10:33 AM [facility] REPOSITORY HNO ID: [id number] Author: Carlos (Pt) Maykel Service: (none) Author Type: Physical Therapist Type: Progress Notes Filed: 04/08/2018 7:22 PM Note Text: Episode Visit Count: 7 Therapist That Will Oversee The Plan Of Care: Carlos Brar Start of Care Date: 03/15/18 Onset Date: 01/13/18 Plan of Care Certification Date: 03/15/18 Patient Identified by Name and Date of : Yes REHABILITATION AND SPORTS THERAPY PHYSICAL THERAPY TREATMENT NOTE ASSESSMENT: Tasneem Batista demonstrated improvements in subjective reports of pain and increased cervical ROM. The patient will continue to benefit from continued skilled physical therapy for AROM, strength and soft restrictions. PLAN FOR NEXT VISIT: Continue with lacrosse ball mobs, manual traction and stretching and strengthening exercises. SUBJECTIVE: Pt states her neck is improving. She feels that since it is tension, she feels it more later in the day. She does states that she was waterin gher garden this morning, used watering can instead of the hose which is more work, but still feels pretty good after that. Pain Score: 2/10 Pain Location: Neck - Left Frequency: Intermittent Post Treatment Pain Score: 1/10 Pain Location: Neck - Left Post Treatment Pain Description: (better) OBJECTIVE MEASURES WITH LEVEL OF FUNCTION: Cervical Spine AROM Cervical Side-Bend Right (degrees): 50 Degrees Cervical Side-Bend Left (degrees)?: 40 Degrees TREATMENT: Therapeutic Exercise: 1: UBE seat height 2, seat 5, pedals 5 x 3 minutes. 2: seated shoulder pulleys flex and abd x 15 reps each 3: cervical retractions 1 x 30 reps 4: posterior shoulder circles 1 x 30 reps 5: scapular retractions 5 sec holds, 1x15. 6: upper trap stretches 30 sec holds x 3 each side 7: B levator scapula stretches 2x30 seconds with no hands. Skilled Intervention: Patient was educated in proper exercise technique and purpose for exercises. Reviewed and educated patient on additions/changes for home exercise program as above (*) Skilled judgment was provided in selection of appropriate interventions. Provided written instruction for home exercise program to facilitate proper performance and compliance. Correct performance of therapeutic exercises was facilitated with verbal and visual cuing. Patient education as noted. Manual Therapy: 1: supine manual traction with pull to tolerance and suboccipital releases x 12 minutes. 2: Lacrosse ball mobs B cervical and UT region x 8 minutes. Skilled Intervention: Manual skills to improve joint mobility, ROM, and decrease pain. Utilized anatomy knowledge of the therapist, and assessment of patient's response to intervention. Billing: [facility]: Therapeutic Exercise ([id number]): 1:1 time: 23 minutes (2 units: 23-37 mins) Manual Therapy ([id number]): 1:1 time: 20 minutes (1 unit: 8-22 mins) Total time: 43 minutes Carlos Brar PT CNTHERAPY Observed: 04/08/2018 Status: COMPLETED Source: [place] 10:30 AM [facility] REPOSITORY OT/PT/Speech Visit (PTWS) TASNEEM BATISTA ([id number]) 1945 F Date Time Provider Department 04/08/18 10:30 AM CARLOS BRAR (PT) PTWS Date Time Provider Department Center 04/08/2018 10:30 AM [id number] BRAR (PT) PTWS [facility] Reason for Visit: Physical Therapy [503] Primary Visit Diagnosis:Radiculopathy, cervical region [M54.12] Allergies As of Date: 04/08/2018 Noted Allergy Reaction CONTRAST DYE 05/09/2011 14 - Other: See Comments Comments: Face flushing and redness PENICILLINS 08/17/2009 2 - Rash SULFA (SULFONAMIDE ANTIBIOTICS) 08/17/2009 2 - Rash VICODIN (HYDROCODONE-ACETAMINOPHE*08/17/2009 5 - Intolerance Date Reviewed: 05/16/2016 Reviewed by: Krissy Mccartney LPN - Fully Assessed Prescriptions as of 04/08/2018 Sig: INSULIN LISPRO (U-100) 100 UN* Use 5 units with each meal KETOCONAZOLE 2 % SHAMPOO Apply 1 application to affect* CETIRIZINE 10 MG TABLET Take 1 tablet by mouth once d* INSULIN GLARGINE (U-100) 100 * 10-12 Units daily at bedtime. GABAPENTIN 300 MG CAPSULE Take 1 capsule by mouth daily* LISINOPRIL 10 MG TABLET Take 1 tablet by mouth once d* BLOOD SUGAR DIAGNOSTIC STRIPS Use as instructed. Tests blo* ATORVASTATIN 40 MG TABLET Take 1 tablet by mouth once d* PEN NEEDLE, DIABETIC 31 GAUGE* Use one needle per dose. 4 pe* CHOLECALCIFEROL (VITAMIN D3) * Take 2 capsules by mouth once* LANCETS Test blood sugar(s) 4 daily. * Progress Notes: Carlos Brar PT 04/08/2018 7:22 PM Signed Episode Visit Count: 7 Therapist That Will Oversee The Plan Of Care: Carlos Brar Start of Care Date: 03/15/18 Onset Date: 01/13/18 Plan of Care Certification Date: 03/15/18 Patient Identified by Name and Date of : Yes REHABILITATION AND SPORTS THERAPY PHYSICAL THERAPY TREATMENT NOTE ASSESSMENT: Tasneem Donald Batista demonstrated improvements in subjective reports of pain and increased cervical ROM. The patient will continue to benefit from continued skilled physical therapy for AROM, strength and soft restrictions. PLAN FOR NEXT VISIT: Continue with lacrosse ball mobs, manual traction and stretching and strengthening exercises. SUBJECTIVE: Pt states her neck is improving. She feels that since it is tension, she feels it more later in the day. She does states that she was waterin gher garden this morning, used watering can instead of the hose which is more work, but still feels pretty good after that. Pain Score: 2/10 Pain Location: Neck - Left Frequency: Intermittent Post Treatment Pain Score: 1/10 Pain Location: Neck - Left Post Treatment Pain Description: (better) OBJECTIVE MEASURES WITH LEVEL OF FUNCTION: Cervical Spine AROM Cervical Side-Bend Right (degrees): 50 Degrees Cervical Side-Bend Left (degrees)?: 40 Degrees TREATMENT: Therapeutic Exercise: 1: UBE seat height 2, seat 5, pedals 5 x 3 minutes. 2: seated shoulder pulleys flex and abd x 15 reps each 3: cervical retractions 1 x 30 reps 4: posterior shoulder circles 1 x 30 reps 5: scapular retractions 5 sec holds, 1x15. 6: upper trap stretches 30 sec holds x 3 each side 7: B levator scapula stretches 2x30 seconds with no hands. Skilled Intervention: Patient was educated in proper exercise technique and purpose for exercises. Reviewed and educated patient on additions/changes for home exercise program as above (*) Skilled judgment was provided in selection of appropriate interventions. Provided written instruction for home exercise program to facilitate proper performance and compliance. Correct performance of therapeutic exercises was facilitated with verbal and visual cuing. Patient education as noted. Manual Therapy: 1: supine manual traction with pull to tolerance and suboccipital releases x 12 minutes. 2: Lacrosse ball mobs B cervical and UT region x 8 minutes. Skilled Intervention: Manual skills to improve joint mobility, ROM, and decrease pain. Utilized anatomy knowledge of the therapist, and assessment of patient's response to intervention. Billing: [facility]: Therapeutic Exercise ([id number]): 1:1 time: 23 minutes (2 units: 23-37 mins) Manual Therapy ([id number]): 1:1 time: 20 minutes (1 unit: 8-22 mins) Total time: 43 minutes Carlos Brar PT PROGRESS Observed: 04/04/2018 Status: COMPLETED Source: [place] 9:58 AM [facility] REPOSITORY HNO ID: [id number] Author: Luiza Peña Service: (none) Author Type: Physical Therapist Type: Progress Notes Filed: 04/04/2018 11:01 AM Note Text: Episode Visit Count: 6 Therapist That Will Oversee The Plan Of Care: Carlos Brar Start of Care Date: 03/15/18 Onset Date: 01/13/18 Plan of Care Certification Date: 07/13/18 REHABILITATION AND SPORTS THERAPY PHYSICAL THERAPY TREATMENT NOTE ASSESSMENT: Tasneem Batista demonstrated difficulty with elbow trigger point techniques later in the day after last therapy. Deferred trigger point today. Patient is responding well to manual techniques and exercise at current time and has pain reduction at end of therapy. The patient will continue to benefit from continued skilled physical therapy for progression of exercise and manual techniques for pain control. PLAN FOR NEXT VISIT: Continue with lacrosse ball mobs, manual traction and stretching and strengthening exercises. SUBJECTIVE: Patient reports the trigger point felt good at the time and than pain increased UT region and she would like to stop the trigger point techinque that deep. Patient reports getting along okay with no US last visit . Pain Score: 5/10 Pain Location: Neck - Left Description: Aching;Sharp (sharp with movement) Frequency: Intermittent Post Treatment Pain Score: 2/10 Pain Location: Neck - Left Post Treatment Pain Description: Aching;Dull OBJECTIVE MEASURES WITH LEVEL OF FUNCTION: Tightness persists B upper trap. TREATMENT: Therapeutic Exercise: 1: cervical retractions 1 x 20 reps 2: posterior shoulder circles 1 x 20 reps 3: scapular retractions 5 sec holds, 1x15. 4: upper trap stretches 30 sec holds x 3 each side 5: B levator scapula stretches 2x30 seconds with no hands. 6: B shoulder bruno flexion and abduction 1x13 each. 7: UBE seat height 2, seat 5, pedals 5 x 3 minutes. Skilled Intervention: Patient was educated in proper exercise technique and purpose for exercises. Skilled judgment was provided in selection of appropriate interventions. Correct performance of therapeutic exercises was facilitated with verbal cuing. Manual Therapy: 1: supine manual traction with pull to tolerance x 10 minutes. 2: Lacrosse ball mobs B cervical and UT region x 13 minutes. Skilled Intervention: Manual skills to improve joint mobility, ROM, and decrease pain. Utilized anatomy knowledge of the therapist, and assessment of patient's response to intervention. Billing: [facility]: Therapeutic Exercise ([id number]): 1:1 time: 21 minutes (1 unit: 8-22 mins) Manual Therapy ([id number]): 1:1 time: 23 minutes (2 units: 23- 37 mins) Total time: 43 minutes Malou Peguero PTJosiahA/Luiza Peña PT CNTHERAPY Observed: 04/04/2018 Status: COMPLETED Source: [place] 9:15 AM [facility] RE[facility] OT/PT/Speech Visit (PTWS) TASNEEM BATISTA ([id number]) 1945 F Date Time Provider Department 04/04/18 9:15 AM MALOU PEGUERO ([employer]) PTWS Date Time Provider Department Center 04/04/2018 9:15 AM [id number], NANCY ([employer]) PTWS [facility] Reason for Visit: Physical Therapy [503] Primary Visit Diagnosis:Radiculopathy, cervical region [M54.12] Allergies As of Date: 04/04/2018 Noted Allergy Reaction CONTRAST DYE 05/09/2011 14 - Other: See Comments Comments: Face flushing and redness PENICILLINS 08/17/2009 2 - Rash SULFA (SULFONAMIDE ANTIBIOTICS) 08/17/2009 2 - Rash VICODIN (HYDROCODONE-ACETAMINOPHE*08/17/2009 5 - Intolerance Date Reviewed: 05/16/2016 Reviewed by: Krissy Mccartney LPN - Fully Assessed Prescriptions as of 04/04/2018 Sig: INSULIN LISPRO (U-100) 100 UN* Use 5 units with each meal KETOCONAZOLE 2 % SHAMPOO Apply 1 application to affect* CETIRIZINE 10 MG TABLET Take 1 tablet by mouth once d* INSULIN GLARGINE (U-100) 100 * 10-12 Units daily at bedtime. GABAPENTIN 300 MG CAPSULE Take 1 capsule by mouth daily* LISINOPRIL 10 MG TABLET Take 1 tablet by mouth once d* BLOOD SUGAR DIAGNOSTIC STRIPS Use as instructed. Tests blo* ATORVASTATIN 40 MG TABLET Take 1 tablet by mouth once d* PEN NEEDLE, DIABETIC 31 GAUGE* Use one needle per dose. 4 pe* CHOLECALCIFEROL (VITAMIN D3) * Take 2 capsules by mouth once* LANCETS Test blood sugar(s) 4 daily. * Progress Notes: Luiza Peña PT 04/04/2018 11:01 AM Signed Episode Visit Count: 6 Therapist That Will Oversee The Plan Of Care: Carlos Brar Start of Care Date: 03/15/18 Onset Date: 01/13/18 Plan of Care Certification Date: 03/15/18 REHABILITATION AND SPORTS THERAPY PHYSICAL THERAPY TREATMENT NOTE ASSESSMENT: Tasneem Batista demonstrated difficulty with elbow trigger point techniques later in the day after last therapy. Deferred trigger point today. Patient is responding well to manual techniques and exercise at current time and has pain reduction at end of therapy. The patient will continue to benefit from continued skilled physical therapy for progression of exercise and manual techniques for pain control. PLAN FOR NEXT VISIT: Continue with lacrosse ball mobs, manual traction and stretching and strengthening exercises. SUBJECTIVE: Patient reports the trigger point felt good at the time and than pain increased UT region and she would like to stop the trigger point techinque that deep. Patient reports getting along okay with no US last visit . Pain Score: 5/10 Pain Location: Neck - Left Description: Aching;Sharp (sharp with movement) Frequency: Intermittent Post Treatment Pain Score: 2/10 Pain Location: Neck - Left Post Treatment Pain Description: Aching;Dull OBJECTIVE MEASURES WITH LEVEL OF FUNCTION: Tightness persists B upper trap. TREATMENT: Therapeutic Exercise: 1: cervical retractions 1 x 20 reps 2: posterior shoulder circles 1 x 20 reps 3: scapular retractions 5 sec holds, 1x15. 4: upper trap stretches 30 sec holds x 3 each side 5: B levator scapula stretches 2x30 seconds with no hands. 6: B shoulder bruno flexion and abduction 1x13 each. 7: UBE seat height 2, seat 5, pedals 5 x 3 minutes. Skilled Intervention: Patient was educated in proper exercise technique and purpose for exercises. Skilled judgment was provided in selection of appropriate interventions. Correct performance of therapeutic exercises was facilitated with verbal cuing. Manual Therapy: 1: supine manual traction with pull to tolerance x 10 minutes. 2: Lacrosse ball mobs B cervical and UT region x 13 minutes. Skilled Intervention: Manual skills to improve joint mobility, ROM, and decrease pain. Utilized anatomy knowledge of the therapist, and assessment of patient's response to intervention. Billing: [facility]: Therapeutic Exercise ([id number]): 1:1 time: 21 minutes (1 unit: 8-22 mins) Manual Therapy ([id number]): 1:1 time: 23 minutes (2 units: 23- 37 mins) Total time: 43 minutes Malou Asa, PT-Venus/Luiza Peña PT Previous Version Follow-up and Disposition History Recorded PROGRESS Observed: 04/02/2018 Status: COMPLETED Source: [place] 12:08 PM [facility] REPOSITORY HNO ID: [id number] Author: Javon (Pt) Tam Service: (none) Author Type: Physical Therapist Type: Progress Notes Filed: 04/02/2018 12:35 PM Note Text: Episode Visit Count: 5 Therapist That Will Oversee The Plan Of Care: Carlos Brar Start of Care Date: 03/15/18 Onset Date: 01/13/18 Plan of Care Certification Date: 03/15/18 Patient Identified by Name and Date of : Yes REHABILITATION AND SPORTS THERAPY PHYSICAL THERAPY TREATMENT NOTE ASSESSMENT: Tasneem Batista demonstrated difficulty with extra cleaning in her home as neck pain increased. She responded well to lacrosse ball mobs and manual traction today with pain reduction noted. Added additional stretching which felt good to patient. Overall reduction in pain at end of treatment. The patient will continue to benefit from continued skilled physical therapy for progression of exercises and manual techniques for pain control. PLAN FOR NEXT VISIT: Monitor response to lacrosse ball mobs and trigger point techniques. Ask if she had any pain with stopping US from treatment. SUBJECTIVE: Patient reports the neck is more sore today. Patient reports doing more cleaning than usual and that might have caused the soreness. Pain Score: 5/10 Pain Location: Neck - Right;Neck - Left (left side hurts more) Description: Aching;Sharp;Tightness (Sharp at times with return from right lat flexion to upright) Frequency: Intermittent Post Treatment Pain Score: 2/10 Pain Location: Neck - Right;Neck - Left Post Treatment Pain Description: Dull OBJECTIVE MEASURES WITH LEVEL OF FUNCTION: Trigger point release B upper trap decreased tightness in the muscle. TREATMENT: Therapeutic Exercise: 1: cervical retractions 1 x 20 reps 2: posterior shoulder circles 1 x 20 reps 3: scapular retractions 5 sec holds, 1x15. 4: upper trap stretches 30 sec holds x 3 each side 5: *B levator scapula stretches 2x30 seconds with no hands. 6: B shoulder bruno flexion and abduction 1x10 each. Skilled Intervention: Patient was educated in proper exercise technique and purpose for exercises. Reviewed and educated patient on additions/changes for home exercise program as above (*) Skilled judgment was provided in selection of appropriate interventions. Provided written instruction for home exercise program to facilitate proper performance and compliance. Correct performance of therapeutic exercises was facilitated with verbal and visual cuing. Manual Therapy: 1: supine manual traction with pull to tolerance x 8 minutes. 2: Lacrosse ball mobs B cervical and UT region x 10 minutes. 3: Trigger point release B UT x 2 each side. Skilled Intervention: Manual skills to improve joint mobility, ROM, and decrease pain. Utilized anatomy knowledge of the therapist, and assessment of patient's response to intervention. Billing: [facility]: Therapeutic Exercise ([id number]): 1:1 time: 25 minutes (2 units: 23-37 mins) Manual Therapy ([id number]): 1:1 time: 20 minutes (1 unit: 8-22 mins) Total time: 45 minutes FATOUMATA Karimi PT CNTHERAPY Observed: 04/02/2018 Status: COMPLETED Source: [place] 9:15 AM [facility] REPOSITORY OT/PT/Speech Visit (PTWS) TASNEEM BATISTA ([id number]) 1945 F Date Time Provider Department 04/02/18 9:15 AM MALOU PEGUERO (EN[facility]QU[facility]) PTWS Date Time Provider Department Center 04/02/2018 9:15 AM [id number], NANCY ([employer]) PTWS [facility] Reason for Visit: Physical Therapy [503] Primary Visit Diagnosis:Radiculopathy, cervical region [M54.12] Allergies As of Date: 04/02/2018 Noted Allergy Reaction CONTRAST DYE 05/09/2011 14 - Other: See Comments Comments: Face flushing and redness PENICILLINS 08/17/2009 2 - Rash SULFA (SULFONAMIDE ANTIBIOTICS) 08/17/2009 2 - Rash VICODIN (HYDROCODONE-ACETAMINOPHE*08/17/2009 5 - Intolerance Date Reviewed: 05/16/2016 Reviewed by: Krissy Mccartney LPN - Fully Assessed Prescriptions as of 04/02/2018 Sig: INSULIN LISPRO (U-100) 100 UN* Use 5 units with each meal KETOCONAZOLE 2 % SHAMPOO Apply 1 application to affect* CETIRIZINE 10 MG TABLET Take 1 tablet by mouth once d* INSULIN GLARGINE (U-100) 100 * 10-12 Units daily at bedtime. GABAPENTIN 300 MG CAPSULE Take 1 capsule by mouth daily* LISINOPRIL 10 MG TABLET Take 1 tablet by mouth once d* BLOOD SUGAR DIAGNOSTIC STRIPS Use as instructed. Tests blo* ATORVASTATIN 40 MG TABLET Take 1 tablet by mouth once d* PEN NEEDLE, DIABETIC 31 GAUGE* Use one needle per dose. 4 pe* CHOLECALCIFEROL (VITAMIN D3) * Take 2 capsules by mouth once* LANCETS Test blood sugar(s) 4 daily. * Progress Notes: Javon Turcios, PT 04/02/2018 12:35 PM Signed Episode Visit Count: 5 Therapist That Will Oversee The Plan Of Care: Carlos Brar Start of Care Date: 03/15/18 Onset Date: 01/13/18 Plan of Care Certification Date: 03/15/18 Patient Identified by Name and Date of : Yes REHABILITATION AND SPORTS THERAPY PHYSICAL THERAPY TREATMENT NOTE ASSESSMENT: Tasneem Batista demonstrated difficulty with extra cleaning in her home as neck pain increased. She responded well to lacrosse ball mobs and manual traction today with pain reduction noted. Added additional stretching which felt good to patient. Overall reduction in pain at end of treatment. The patient will continue to benefit from continued skilled physical therapy for progression of exercises and manual techniques for pain control. PLAN FOR NEXT VISIT: Monitor response to lacrosse ball mobs and trigger point techniques. Ask if she had any pain with stopping US from treatment. SUBJECTIVE: Patient reports the neck is more sore today. Patient reports doing more cleaning than usual and that might have caused the soreness. Pain Score: 5/10 Pain Location: Neck - Right;Neck - Left (left side hurts more) Description: Aching;Sharp;Tightness (Sharp at times with return from right lat flexion to upright) Frequency: Intermittent Post Treatment Pain Score: 2/10 Pain Location: Neck - Right;Neck - Left Post Treatment Pain Description: Dull OBJECTIVE MEASURES WITH LEVEL OF FUNCTION: Trigger point release B upper trap decreased tightness in the muscle. TREATMENT: Therapeutic Exercise: 1: cervical retractions 1 x 20 reps 2: posterior shoulder circles 1 x 20 reps 3: scapular retractions 5 sec holds, 1x15. 4: upper trap stretches 30 sec holds x 3 each side 5: *B levator scapula stretches 2x30 seconds with no hands. 6: B shoulder bruno flexion and abduction 1x10 each. Skilled Intervention: Patient was educated in proper exercise technique and purpose for exercises. Reviewed and educated patient on additions/changes for home exercise program as above (*) Skilled judgment was provided in selection of appropriate interventions. Provided written instruction for home exercise program to facilitate proper performance and compliance. Correct performance of therapeutic exercises was facilitated with verbal and visual cuing. Manual Therapy: 1: supine manual traction with pull to tolerance x 8 minutes. 2: Lacrosse ball mobs B cervical and UT region x 10 minutes. 3: Trigger point release B UT x 2 each side. Skilled Intervention: Manual skills to improve joint mobility, ROM, and decrease pain. Utilized anatomy knowledge of the therapist, and assessment of patient's response to intervention. Billing: [facility]: Therapeutic Exercise ([id number]): 1:1 time: 25 minutes (2 units: 23-37 mins) Manual Therapy ([id number]): 1:1 time: 20 minutes (1 unit: 8-22 mins) Total time: 45 minutes Malou Peguero PTZachery Turcios PT Previous Version Follow-up and Disposition History Recorded PROGRESS Observed: 03/27/2018 Status: COMPLETED Source: [place] 11:02 AM [facility] REPOSITORY HNO ID: [id number] Author: Carlos (Pt) Maykel Service: (none) Author Type: Physical Therapist Type: Progress Notes Filed: 03/27/2018 12:54 PM Note Text: Episode Visit Count: 4 Therapist That Will Oversee The Plan Of Care: Maykel Carlos Start of Care Date: 03/15/18 Onset Date: 01/13/18 Plan of Care Certification Date: 03/15/18 Patient Identified by Name and Date of : Yes REHABILITATION AND SPORTS THERAPY PHYSICAL THERAPY TREATMENT NOTE ASSESSMENT: Tasneem Batista demonstrated improvements in cervical posture and subjective reposts of decreased pain. The patient will continue to benefit from continued skilled physical therapy for cervical ROM and pain control. PLAN FOR NEXT VISIT: Continue with exercise, posture and IASTM. May discontinue US if symptoms remain improved and/or add UBE. SUBJECTIVE: Pt states she notices now when she does the shoulder circles, her shoulders no longer hurt. Pain Score: 2/10 Pain Location: Neck - Right;Neck - Left Description: Dull Post Treatment Pain Score: 1/10 Pain Location: Neck OBJECTIVE MEASURES WITH LEVEL OF FUNCTION: Posture / Alignment Posture: (Head and neck posture is good. Slight forward rounded shlds ) TREATMENT: Therapeutic Exercise: 1: cervical retractions 1 x 20 reps 2: posterior shoulder circles 1 x 20 reps 3: scapular retractions 5 sec holds, 2 x 10 reps 4: *upper trap stretches 30 sec holds x 3 each side Skilled Intervention: Patient was educated in proper exercise technique and purpose for exercises. Reviewed and educated patient on additions/changes for home exercise program and pt to add (*) as above. Skilled judgment was provided in selection of appropriate interventions. Correct performance of therapeutic exercises was facilitated with verbal and visual cuing. Patient education as noted. Manual Therapy: 1: supine gentle intermittent cervical traction and suboccipital releases. 2: IASTM using [employer] scanner tool to B cervical paraspinals and upper traps. Skilled Intervention: Manual skills to improve joint mobility, ROM, and decrease pain. Utilized anatomy knowledge of the therapist, and assessment of patient's response to intervention. Modalities: Ultrasound Body Region Treated - Ultrasound: B cervical paraspinals and upper traps Patient Position: seated upright in chair Mode: 50% pulsed w/cm2: 1.2 MHZ: 1 Minutes: 10 See flowsheet for details regarding treatment. Skilled Intervention: Proper administration and selection of modality based on clinical presentation, deficits, and needs. Patient response monitored throughout treatment. Billing: [facility]: Therapeutic Exercise ([id number]): 1:1 time: 20 minutes (1 unit: 8-22 mins) Manual Therapy ([id number]): 1:1 time: 12 minutes (1 unit: 8-22 mins) Modalities Ultrasound ([id number]) 1:1 time: 10 minutes1 unit: 8-22 mins Total time: 42 minutes Carlos Brar PT CNTHERAPY Observed: 03/27/2018 Status: COMPLETED Source: [place] 11:00 AM [facility] REPOSITORY OT/PT/Speech Visit (PTWS) TASNEEM BATISTA ([id number]) 1945 F Date Time Provider Department 03/27/18 11:00 AM CARLOS BRAR (PT) PTWS Date Time Provider Department Center 03/27/2018 11:00 AM [id number] BRAR (PT) PTWS [facility] Reason for Visit: Physical Therapy [503] Primary Visit Diagnosis:Radiculopathy, cervical region [M54.12] Allergies As of Date: 03/27/2018 Noted Allergy Reaction CONTRAST DYE 05/09/2011 14 - Other: See Comments Comments: Face flushing and redness PENICILLINS 08/17/2009 2 - Rash SULFA (SULFONAMIDE ANTIBIOTICS) 08/17/2009 2 - Rash VICODIN (HYDROCODONE-ACETAMINOPHE*08/17/2009 5 - Intolerance Date Reviewed: 05/16/2016 Reviewed by: Krissy Mccartney LPN - Fully Assessed Prescriptions as of 03/27/2018 Sig: INSULIN LISPRO (U-100) 100 UN* Use 5 units with each meal KETOCONAZOLE 2 % SHAMPOO Apply 1 application to affect* CETIRIZINE 10 MG TABLET Take 1 tablet by mouth once d* INSULIN GLARGINE (U-100) 100 * 10-12 Units daily at bedtime. GABAPENTIN 300 MG CAPSULE Take 1 capsule by mouth daily* LISINOPRIL 10 MG TABLET Take 1 tablet by mouth once d* BLOOD SUGAR DIAGNOSTIC STRIPS Use as instructed. Tests blo* ATORVASTATIN 40 MG TABLET Take 1 tablet by mouth once d* PEN NEEDLE, DIABETIC 31 GAUGE* Use one needle per dose. 4 pe* CHOLECALCIFEROL (VITAMIN D3) * Take 2 capsules by mouth once* LANCETS Test blood sugar(s) 4 daily. * Progress Notes: Carlos Brar, PT 03/27/2018 12:54 PM Signed Episode Visit Count: 4 Therapist That Will Oversee The Plan Of Care: Carlos Brar Start of Care Date: 03/15/18 Onset Date: 01/13/18 Plan of Care Certification Date: 03/15/18 Patient Identified by Name and Date of : Yes REHABILITATION AND SPORTS THERAPY PHYSICAL THERAPY TREATMENT NOTE ASSESSMENT: Tasneem Batista demonstrated improvements in cervical posture and subjective reposts of decreased pain. The patient will continue to benefit from continued skilled physical therapy for cervical ROM and pain control. PLAN FOR NEXT VISIT: Continue with exercise, posture and IASTM. May discontinue US if symptoms remain improved and/or add UBE. SUBJECTIVE: Pt states she notices now when she does the shoulder circles, her shoulders no longer hurt. Pain Score: 2/10 Pain Location: Neck - Right;Neck - Left Description: Dull Post Treatment Pain Score: 1/10 Pain Location: Neck OBJECTIVE MEASURES WITH LEVEL OF FUNCTION: Posture / Alignment Posture: (Head and neck posture is good. Slight forward rounded shlds ) TREATMENT: Therapeutic Exercise: 1: cervical retractions 1 x 20 reps 2: posterior shoulder circles 1 x 20 reps 3: scapular retractions 5 sec holds, 2 x 10 reps 4: *upper trap stretches 30 sec holds x 3 each side Skilled Intervention: Patient was educated in proper exercise technique and purpose for exercises. Reviewed and educated patient on additions/changes for home exercise program and pt to add (*) as above. Skilled judgment was provided in selection of appropriate interventions. Correct performance of therapeutic exercises was facilitated with verbal and visual cuing. Patient education as noted. Manual Therapy: 1: supine gentle intermittent cervical traction and suboccipital releases. 2: IASTM using [employer] scanner tool to B cervical paraspinals and upper traps. Skilled Intervention: Manual skills to improve joint mobility, ROM, and decrease pain. Utilized anatomy knowledge of the therapist, and assessment of patient's response to intervention. Modalities: Ultrasound Body Region Treated - Ultrasound: B cervical paraspinals and upper traps Patient Position: seated upright in chair Mode: 50% pulsed w/cm2: 1.2 MHZ: 1 Minutes: 10 See flowsheet for details regarding treatment. Skilled Intervention: Proper administration and selection of modality based on clinical presentation, deficits, and needs. Patient response monitored throughout treatment. Billing: [facility]: Therapeutic Exercise ([id number]): 1:1 time: 20 minutes (1 unit: 8-22 mins) Manual Therapy ([id number]): 1:1 time: 12 minutes (1 unit: 8-22 mins) Modalities Ultrasound ([id number]) 1:1 time: 10 minutes1 unit: 8-22 mins Total time: 42 minutes Carlos Brar PT PROGRESS Observed: 03/25/2018 Status: COMPLETED Source: [place] 12:47 PM [facility] REPOSITORY HNO ID: [id number] Author: Carlos (Pt) Maykel Service: (none) Author Type: Physical Therapist Type: Progress Notes Filed: 03/25/2018 2:54 PM Note Text: Episode Visit Count: 3 Therapist That Will Oversee The Plan Of Care: Carlos Brar Start of Care Date: 03/15/18 Onset Date: 01/13/18 Plan of Care Certification Date: 03/15/18 Patient Identified by Name and Date of : Yes REHABILITATION AND SPORTS THERAPY PHYSICAL THERAPY TREATMENT NOTE ASSESSMENT: Tasneem Batista demonstrated improvements in cervical rotation AROM and subjective decrease in pain intensity rating. The patient will continue to benefit from continued skilled physical therapy for progression of exercises and HEP, modalities for aping relief and manual techniques to reduce soft tissue restriction. PLAN FOR NEXT VISIT: Continue with exercise, US and IASTM. May add upper trap stretch, shoulder pulleys, and/or UBE. SUBJECTIVE: Pt states she cleaned all morning and still feels better today. She feels that the IASTM was very helpful in stretching it out and making the muscles in her neck feel better. Pain Score: 3/10 Pain Location: Neck - Right;Neck - Left (B upper traps) Description: Dull Post Treatment Pain Score: 1/10 Pain Location: Neck OBJECTIVE MEASURES WITH LEVEL OF FUNCTION: Cervical Spine AROM Cervical Rotation Right (degrees)?: 74 Degrees Cervical Rotation Left (degrees)?: 72 TREATMENT: Therapeutic Exercise: 1: cervical retractions 1 x 20 reps 2: posterior shoulder circles 1 x 20 reps 3: scapular retractions 5 sec holds, 1 x 10 and 1 x 5 reps Skilled Intervention: Patient was educated in proper exercise technique and purpose for exercises. Reviewed and educated patient on additions/changes for home exercise program and pt is to increase reps/sets as noted. Skilled judgment was provided in selection of appropriate interventions. Correct performance of therapeutic exercises was facilitated with verbal cuing. Patient education as noted. Manual Therapy: 1: IASTM using [employer] scanner tool to B cervical paraspinals and upper traps. 2: supine gentle intermittent cervical traction and suboccipital releases. Skilled Intervention: Manual skills to improve joint mobility, ROM, and decrease pain. Utilized anatomy knowledge of the therapist, and assessment of patient's response to intervention. Modalities: Ultrasound Body Region Treated - Ultrasound: B cervical paraspinals and upper traps Patient Position: seated upright in chair Mode: 50% pulsed w/cm2: 1.2 MHZ: 1 Minutes: 10 See flowsheet for details regarding treatment. Skilled Intervention: Proper administration and selection of modality based on clinical presentation, deficits, and needs. Patient response monitored throughout treatment. Billing: [facility]: Therapeutic Exercise ([id number]): 1:1 time: 15 minutes (1 unit: 8-22 mins) Manual Therapy ([id number]): 1:1 time: 20 minutes (1 unit: 8-22 mins) Modalities Ultrasound ([id number]) 1:1 time: 10 minutes1 unit: 8-22 mins Total time: 45 minutes Carlos Brar PT CNTHERAPY Observed: 03/25/2018 Status: COMPLETED Source: [place] 12:45 PM [facility] REPOSITORY OT/PT/Speech Visit (PTWS) TSANEEM BATISTA ([id number]) 1945 F Date Time Provider Department 03/25/18 12:45 PM CARLOS BRAR (PT) PTWS Date Time Provider Department Center 03/25/2018 12:45 PM [id number] BRAR (PT) PTWS [facility] Reason for Visit: Physical Therapy [503] Primary Visit Diagnosis:Radiculopathy, cervical region [M54.12] Allergies As of Date: 03/25/2018 Noted Allergy Reaction CONTRAST DYE 05/09/2011 14 - Other: See Comments Comments: Face flushing and redness PENICILLINS 08/17/2009 2 - Rash SULFA (SULFONAMIDE ANTIBIOTICS) 08/17/2009 2 - Rash VICODIN (HYDROCODONE-ACETAMINOPHE*08/17/2009 5 - Intolerance Date Reviewed: 05/16/2016 Reviewed by: Krissy Mccartney LPN - Fully Assessed Prescriptions as of 03/25/2018 Sig: INSULIN LISPRO (U-100) 100 UN* Use 5 units with each meal KETOCONAZOLE 2 % SHAMPOO Apply 1 application to affect* CETIRIZINE 10 MG TABLET Take 1 tablet by mouth once d* INSULIN GLARGINE (U-100) 100 * 10-12 Units daily at bedtime. GABAPENTIN 300 MG CAPSULE Take 1 capsule by mouth daily* LISINOPRIL 10 MG TABLET Take 1 tablet by mouth once d* BLOOD SUGAR DIAGNOSTIC STRIPS Use as instructed. Tests blo* ATORVASTATIN 40 MG TABLET Take 1 tablet by mouth once d* PEN NEEDLE, DIABETIC 31 GAUGE* Use one needle per dose. 4 pe* CHOLECALCIFEROL (VITAMIN D3) * Take 2 capsules by mouth once* LANCETS Test blood sugar(s) 4 daily. * Progress Notes: Carlos Brar PT 03/25/2018 2:54 PM Signed Episode Visit Count: 3 Therapist That Will Oversee The Plan Of Care: Carlos Brar Start of Care Date: 03/15/18 Onset Date: 01/13/18 Plan of Care Certification Date: 03/15/18 Patient Identified by Name and Date of : Yes REHABILITATION AND SPORTS THERAPY PHYSICAL THERAPY TREATMENT NOTE ASSESSMENT: Tasneem Batista demonstrated improvements in cervical rotation AROM and subjective decrease in pain intensity rating. The patient will continue to benefit from continued skilled physical therapy for progression of exercises and HEP, modalities for aping relief and manual techniques to reduce soft tissue restriction. PLAN FOR NEXT VISIT: Continue with exercise, US and IASTM. May add upper trap stretch, shoulder pulleys, and/or UBE. SUBJECTIVE: Pt states she cleaned all morning and still feels better today. She feels that the IASTM was very helpful in stretching it out and making the muscles in her neck feel better. Pain Score: 3/10 Pain Location: Neck - Right;Neck - Left (B upper traps) Description: Dull Post Treatment Pain Score: 1/10 Pain Location: Neck OBJECTIVE MEASURES WITH LEVEL OF FUNCTION: Cervical Spine AROM Cervical Rotation Right (degrees)?: 74 Degrees Cervical Rotation Left (degrees)?: 72 TREATMENT: Therapeutic Exercise: 1: cervical retractions 1 x 20 reps 2: posterior shoulder circles 1 x 20 reps 3: scapular retractions 5 sec holds, 1 x 10 and 1 x 5 reps Skilled Intervention: Patient was educated in proper exercise technique and purpose for exercises. Reviewed and educated patient on additions/changes for home exercise program and pt is to increase reps/sets as noted. Skilled judgment was provided in selection of appropriate interventions. Correct performance of therapeutic exercises was facilitated with verbal cuing. Patient education as noted. Manual Therapy: 1: IASTM using [employer] Key Person scanner tool to B cervical paraspinals and upper traps. 2: supine gentle intermittent cervical traction and suboccipital releases. Skilled Intervention: Manual skills to improve joint mobility, ROM, and decrease pain. Utilized anatomy knowledge of the therapist, and assessment of patient's response to intervention. Modalities: Ultrasound Body Region Treated - Ultrasound: B cervical paraspinals and upper traps Patient Position: seated upright in chair Mode: 50% pulsed w/cm2: 1.2 MHZ: 1 Minutes: 10 See flowsheet for details regarding treatment. Skilled Intervention: Proper administration and selection of modality based on clinical presentation, deficits, and needs. Patient response monitored throughout treatment. Billing: [facility]: Therapeutic Exercise ([id number]): 1:1 time: 15 minutes (1 unit: 8-22 mins) Manual Therapy ([id number]): 1:1 time: 20 minutes (1 unit: 8-22 mins) Modalities Ultrasound ([id number]) 1:1 time: 10 minutes1 unit: 8-22 mins Total time: 45 minutes Carlos Brar PT CNTHERAPY Observed: 03/22/2018 Status: COMPLETED Source: [place] 9:30 AM [facility] REPOSITORY OT/PT/Speech Visit (PTWS) TASNEEM BATISTA ([id number]) 1945 F Date Time Provider Department 03/22/18 9:30 AM CARLOS BRAR (PT) PTWS Date Time Provider Department Center 03/22/2018 9:30 AM [id number] BRAR (PT) PTWS [facility] Reason for Visit: Physical Therapy [503] Primary Visit Diagnosis:Radiculopathy, cervical region [M54.12] Allergies As of Date: 03/22/2018 Noted Allergy Reaction CONTRAST DYE 05/09/2011 14 - Other: See Comments Comments: Face flushing and redness PENICILLINS 08/17/2009 2 - Rash SULFA (SULFONAMIDE ANTIBIOTICS) 08/17/2009 2 - Rash VICODIN (HYDROCODONE-ACETAMINOPHE*08/17/2009 5 - Intolerance Date Reviewed: 05/16/2016 Reviewed by: Krissy Mccartney LPN - Fully Assessed Prescriptions as of 03/22/2018 Sig: INSULIN LISPRO (U-100) 100 UN* Use 5 units with each meal KETOCONAZOLE 2 % SHAMPOO Apply 1 application to affect* CETIRIZINE 10 MG TABLET Take 1 tablet by mouth once d* INSULIN GLARGINE (U-100) 100 * 10-12 Units daily at bedtime. GABAPENTIN 300 MG CAPSULE Take 1 capsule by mouth daily* LISINOPRIL 10 MG TABLET Take 1 tablet by mouth once d* BLOOD SUGAR DIAGNOSTIC STRIPS Use as instructed. Tests blo* ATORVASTATIN 40 MG TABLET Take 1 tablet by mouth once d* PEN NEEDLE, DIABETIC 31 GAUGE* Use one needle per dose. 4 pe* CHOLECALCIFEROL (VITAMIN D3) * Take 2 capsules by mouth once* LANCETS Test blood sugar(s) 4 daily. * Progress Notes: Carlos Brar, PT 03/22/2018 4:39 PM Signed Episode Visit Count: 2 Therapist That Will Oversee The Plan Of Care: BaldoCarlos otero Start of Care Date: 03/15/18 Onset Date: 01/13/18 Plan of Care Certification Date: 03/15/18 Patient Identified by Name and Date of : Yes REHABILITATION AND SPORTS THERAPY PHYSICAL THERAPY TREATMENT NOTE ASSESSMENT: Tasneem Batista demonstrated improvements in cervical posture, especially in sitting today. The patient will continue to benefit from continued skilled physical therapy for to improve AROM, strength and posture in order to reduce pain. PLAN FOR NEXT VISIT: Assess response to new exercise and addition of IASTM. Continue progression of exercises and manual techniques/modalities per symptom response. SUBJECTIVE: Pt reports she feels the shoulder circles are helpful and makes the muscles more relaxed. She notes compliance iwth HEP. Pain Score: 5/10 Pain Location: Neck - Right;Neck - Left;Shoulder - Right Description: Dull Frequency: Continuous Post Treatment Pain Score: 4/10 Pain Location: Neck OBJECTIVE MEASURES WITH LEVEL OF FUNCTION: Posture / Alignment Posture: (Improved cervical posture noted in sitting today.) Special Tests - Cervical Cervical Distraction: (Pt favorable symptom response with manual cervical traction.) TREATMENT: Therapeutic Exercise: 1: cervical retractions 1 x 10 reps 2: posterior shoulder circles 1 x 20 reps 3: *scapular retractions 5 sec holds, 1 x 10 reps Skilled Intervention: Patient was educated in proper exercise technique and purpose for exercises. Reviewed and educated patient on additions/changes for home exercise program and pt to add (*) to HEP. Skilled judgment was provided in selection of appropriate interventions. Provided written instruction for home exercise program to facilitate proper performance and compliance. Correct performance of therapeutic exercises was facilitated with verbal and visual cuing. Patient education as noted. Manual Therapy: 1: IASTM using [employer] Key Person scanner tool to B cervical paraspinals and upper traps. 2: supine gentle intermittent cervical traction and suboccipital releases. Skilled Intervention: Manual skills to improve joint mobility, ROM, and decrease pain. Utilized anatomy knowledge of the therapist, and assessment of patient's response to intervention. Modalities: Ultrasound Body Region Treated - Ultrasound: B cervical paraspinals and upper traps Patient Position: seated upright in chair Mode: 50% pulsed w/cm2: 1.2 MHZ: 1 Minutes: 10 See flowsheet for details regarding treatment. Skilled Intervention: Proper administration and selection of modality based on clinical presentation, deficits, and needs. Patient response monitored throughout treatment. Billing: [facility]: Therapeutic Exercise ([id number]): 1:1 time: 17 minutes (1 unit: 8-22 mins) Manual Therapy ([id number]): 1:1 time: 15 minutes (1 unit: 8-22 mins) Modalities (Ultrasound) ([id number]): 1:1 time: 10 minutes (1 unit: 8-22 mins) Total time: 42 minutes Carlos Brar PT PROGRESS Observed: 03/22/2018 Status: COMPLETED Source: [place] 9:28 AM [facility] REPOSITORY HNO ID: [id number] Author: Carlos (Pt) Maykel Service: (none) Author Type: Physical Therapist Type: Progress Notes Filed: 03/22/2018 4:39 PM Note Text: Episode Visit Count: 2 Therapist That Will Oversee The Plan Of Care: Carlos Brar Start of Care Date: 03/15/18 Onset Date: 01/13/18 Plan of Care Certification Date: 03/15/18 Patient Identified by Name and Date of : Yes REHABILITATION AND SPORTS THERAPY PHYSICAL THERAPY TREATMENT NOTE ASSESSMENT: Tasneem Batista demonstrated improvements in cervical posture, especially in sitting today. The patient will continue to benefit from continued skilled physical therapy for to improve AROM, strength and posture in order to reduce pain. PLAN FOR NEXT VISIT: Assess response to new exercise and addition of IASTM. Continue progression of exercises and manual techniques/modalities per symptom response. SUBJECTIVE: Pt reports she feels the shoulder circles are helpful and makes the muscles more relaxed. She notes compliance iwth HEP. Pain Score: 5/10 Pain Location: Neck - Right;Neck - Left;Shoulder - Right Description: Dull Frequency: Continuous Post Treatment Pain Score: 4/10 Pain Location: Neck OBJECTIVE MEASURES WITH LEVEL OF FUNCTION: Posture / Alignment Posture: (Improved cervical posture noted in sitting today.) Special Tests - Cervical Cervical Distraction: (Pt favorable symptom response with manual cervical traction.) TREATMENT: Therapeutic Exercise: 1: cervical retractions 1 x 10 reps 2: posterior shoulder circles 1 x 20 reps 3: *scapular retractions 5 sec holds, 1 x 10 reps Skilled Intervention: Patient was educated in proper exercise technique and purpose for exercises. Reviewed and educated patient on additions/changes for home exercise program and pt to add (*) to HEP. Skilled judgment was provided in selection of appropriate interventions. Provided written instruction for home exercise program to facilitate proper performance and compliance. Correct performance of therapeutic exercises was facilitated with verbal and visual cuing. Patient education as noted. Manual Therapy: 1: IASTM using [employer] scanner tool to B cervical paraspinals and upper traps. 2: supine gentle intermittent cervical traction and suboccipital releases. Skilled Intervention: Manual skills to improve joint mobility, ROM, and decrease pain. Utilized anatomy knowledge of the therapist, and assessment of patient's response to intervention. Modalities: Ultrasound Body Region Treated - Ultrasound: B cervical paraspinals and upper traps Patient Position: seated upright in chair Mode: 50% pulsed w/cm2: 1.2 MHZ: 1 Minutes: 10 See flowsheet for details regarding treatment. Skilled Intervention: Proper administration and selection of modality based on clinical presentation, deficits, and needs. Patient response monitored throughout treatment. Billing: [facility]: Therapeutic Exercise ([id number]): 1:1 time: 17 minutes (1 unit: 8-22 mins) Manual Therapy ([id number]): 1:1 time: 15 minutes (1 unit: 8-22 mins) Modalities (Ultrasound) ([id number]): 1:1 time: 10 minutes (1 unit: 8-22 mins) Total time: 42 minutes Carlos Brar PT PROGRESS Observed: 03/15/2018 Status: COMPLETED Source: [place] 9:01 AM [facility] REPOSITORY HNO ID: [id number] Author: Carlos (Pt) Maykel Service: (none) Author Type: Physical Therapist Type: Progress Notes Filed: 03/15/2018 11:54 AM Note Text: Episode Visit Count: 1 Therapist That Will Oversee The Plan Of Care: Carlos Brar Start of Care Date: 03/15/18 Onset Date: 01/13/18 Plan of Care Certification Date: 03/15/18 Patient Identified by Name and Date of : Yes REHABILITATION AND SPORTS THERAPY PHYSICAL THERAPY EVALUATION PLAN OF CARE: Assessment: Tasneem Batista presents with the chief complaint of neck pain and stiffness. She presents with impairments of decreased cervical spine AROM, muscular weakness and fair posture. She may benefit from skilled therapy services to improve AROM, strength and posture in order to reduce pain. Prognosis: Good Good due to: current objective clinical presentation;within-session changes at evaluation;good support system/ coping skills Goals for Episode of Care: created on 03/15/18 through 05/16/18 [place] in home exercise program. Patient will decrease pain rating by 2 points to meet minimal clinical important difference for numeric pain rating scale. Patient will increase active ROM of cervical spine L lateral flexion by 15 degrees to allow pt to improved performance of ADLs and reduce pain and restrictions. Patient will increase strength of cervical musculature to 4 to 4+/5 to allow for return to prior functional status, improve posture and reduce pain. Perform all daily activities with decreased report of symptoms/pain in 4-8 weeks. Demonstrate improvement on functional score: Patient will improve his/her AM-PAC T-scale score by 4 points to indicate a Minimal Clinical Important Difference . Improve postural awareness. G CODE REPORTING Based on clinical assessment and the score on the AM-PAC Scale Score Assessment Tool, the G code and corresponding severity modifiers are documented below. Evaluation: 03/15/2018 Current Status: Carrying, Moving and Handling Objects: G8984 CJ 20-39% impaired Goal Status: Carrying, Moving and Handling Objects: G8985 CI 1-19% impaired Planned Interventions, Frequency, and Duration: Current Frequency: 2x/week Duration: 8 weeks Total Number of Visits Planned: 16 Planned Treatment Interventions: Therapeutic exercise;Neuromuscular re-education;Manual therapy;Patient/Family/Caregiver Education;ModalitiesUltrasound PLAN FOR NEXT VISIT: Assess symptom response to initial treatment and HEP. Review HEP to insure correct performance. Progress exercises and manual techniques (may include IASTM) according to symptom response. Patient demonstrates good understanding of plan of care and treatment. The above goals and plan of care were discussed and agreed upon by patient/family. SUBJECTIVE: Tasneem Batista is a 72 year old female seen today for Pt reports constant, dull neck pain and stiffness. She denies any positions or activities that increase or decrease the pain. She denies any limitations in activities. States she is scheduled to see nam orthopedic surgeon in April. (Pain into shoulders just in the last week.) Denies paraesthesias Functional Limitations: none Prior Level of Function: Independent without limitations Patient Goals: To reduce the pain and not feel so tight. Intake Information: Prescription present Previous Treatment: (Ibuprofen-raises blood sugar, muscle relaxer-feels fuzzy) Spine History Sleep Affected by Pain: Not affected by pain Pain Score: 6/10 Pain Location: Neck;Shoulder - Right;Shoulder - Left;Chest - Right;Chest - Left Description: Dull (can hear bones grinding when turns head) Frequency: Continuous Post Treatment Pain Score: 4/10 Pain Location: Neck Post Treatment Pain Description: (maybe a little better) OBJECTIVE MEASURES WITH LEVEL OF FUNCTION: Posture / Alignment Posture: Rounded shoulders Spine Palpation R Cervical Spine Palpation Tenderness: Upper trapezius;Paraspinals L Cervical Spine Palpation Tenderness: Upper trapezius;Paraspinals Cervical Spine AROM Cervical AROM determined by: Measurement Cervical Flexion (degrees)?: 55 Degrees (increased pain) Cervical Extension (degrees)?: 60 Degrees (increased pain) Cervical Side-Bend Right (degrees): 50 Degrees (most increase in pain) Cervical Side-Bend Left (degrees)?: 35 Degrees (most increase in pain) Cervical Rotation Right (degrees)?: 67 Degrees (greatest pain (L>R)) Cervical Rotation Left (degrees)?: 67 (greatest pain (L>R)) Repeated Test Movements - Cervical Repeated Test Movements - Cervical: Yes Cervical PRO - Symptoms During: increases Cervical PRO - Symptoms After: worse Cervical RET - Symptoms During: no effect Cervical RET - Symptoms After: no effect UE and Cervical Strength Cervical Strength: 3+/5 R UE Strength: 4/5 Special Tests - Cervical Cervical Special Tests: Cervical Compression;Cervical Distraction Cervical Compression: (uncomfortable, no significant effect on symptoms) Cervical Distraction: Negative Education: Education Learning Preferences: Demonstration;Explanation Barriers: None Learning/educational needs: Home exercise program;Plan of Care;Posture Education Provided: Yes, see treatment interventions for education provided Education Provided To: Patient Education Mode/Type: Demonstration;Explanation/Discussion;Literature/Printed Materials;Performance Response to Education/Teach Back: States/Identifies;Return Demonstration TREATMENT: Evaluation Evaluation Therapeutic Exercise: 1: *cervical retractions 1 x 10 reps 2: *posterior shoulder circles 1 x 20 reps Skilled Intervention: Patient was educated in proper exercise technique and purpose for exercises. Skilled judgment was provided in selection of appropriate interventions. Provided written instruction for home exercise program to facilitate proper performance and compliance. Correct performance of therapeutic exercises was facilitated with verbal and visual cuing. Patient education as noted. Modalities: Ultrasound Body Region Treated - Ultrasound: B cervical paraspinals and upper traps Patient Position: seated upright in chair Mode: 50% pulsed w/cm2: 1.2 Minutes: 10 See flowsheet for details regarding treatment. Skilled Intervention: Proper administration and selection of modality based on clinical presentation, deficits, and needs. Patient response monitored throughout treatment. Billing: [facility]: Evaluation - Low Complexity (57095) Therapeutic Exercise (71030): 1:1 time: 10 minutes (1 unit: 8-22 mins) Modalities Ultrasound (65410) 1:1 time: 10 minutes (1 unit: 8-22 mins) Total time: 45 minutes Carlos Brar PT CNTHERAPY Observed: 03/15/2018 Status: COMPLETED Source: [place] 8:45 AM [facility] REPOSITORY OT/PT/Speech Visit (PTWS) TASNEEM BATISTA ([id number]) 1945 F Date Time Provider Department 03/15/18 8:45 AM CARLOS BRARPT) PTWS Date Time Provider Department Center 03/15/2018 8:45 AM [id number] BRAR (PT) PTWS [facility] Reason for Visit: PT Eval [747] Primary Visit Diagnosis:Radiculopathy, cervical region [M54.12] Allergies As of Date: 03/15/2018 Noted Allergy Reaction CONTRAST DYE 05/09/2011 14 - Other: See Comments Comments: Face flushing and redness PENICILLINS 08/17/2009 2 - Rash SULFA (SULFONAMIDE ANTIBIOTICS) 08/17/2009 2 - Rash VICODIN (HYDROCODONE-ACETAMINOPHE*08/17/2009 5 - Intolerance Date Reviewed: 05/16/2016 Reviewed by: Krissy Mccartney LPN - Fully Assessed Prescriptions as of 03/15/2018 Sig: INSULIN LISPRO (U-100) 100 UN* Use 5 units with each meal KETOCONAZOLE 2 % SHAMPOO Apply 1 application to affect* CETIRIZINE 10 MG TABLET Take 1 tablet by mouth once d* INSULIN GLARGINE (U-100) 100 * 10-12 Units daily at bedtime. GABAPENTIN 300 MG CAPSULE Take 1 capsule by mouth daily* LISINOPRIL 10 MG TABLET Take 1 tablet by mouth once d* BLOOD SUGAR DIAGNOSTIC STRIPS Use as instructed. Tests blo* ATORVASTATIN 40 MG TABLET Take 1 tablet by mouth once d* PEN NEEDLE, DIABETIC 31 GAUGE* Use one needle per dose. 4 pe* CHOLECALCIFEROL (VITAMIN D3) * Take 2 capsules by mouth once* LANCETS Test blood sugar(s) 4 daily. * Progress Notes: Carlos Brar, PT 03/15/2018 11:54 AM Signed Episode Visit Count: 1 Therapist That Will Oversee The Plan Of Care: Carlos Brar Start of Care Date: 03/15/18 Onset Date: 01/13/18 Plan of Care Certification Date: 03/15/18 Patient Identified by Name and Date of : Yes [facility] PHYSICAL THERAPY EVALUATION PLAN OF CARE: Assessment: Tasneem Batista presents with the chief complaint of neck pain and stiffness. She presents with impairments of decreased cervical spine AROM, muscular weakness and fair posture. She may benefit from skilled therapy services to improve AROM, strength and posture in order to reduce pain. Prognosis: Good Good due to: current objective clinical presentation;within- session changes at evaluation;good support system/ coping skills Goals for Episode of Care: created on 03/15/18 through 05/16/18 [place] in home exercise program. Patient will decrease pain rating by 2 points to meet minimal clinical important difference for numeric pain rating scale. Patient will increase active ROM of cervical spine L lateral flexion by 15 degrees to allow pt to improved performance of ADLs and reduce pain and restrictions. Patient will increase strength of cervical musculature to 4 to 4+/5 to allow for return to prior functional status, improve posture and reduce pain. Perform all daily activities with decreased report of symptoms/pain in 4-8 weeks. Demonstrate improvement on functional score: Patient will improve his/her AM-PAC T-scale score by 4 points to indicate a Minimal Clinical Important Difference . Improve postural awareness. G CODE REPORTING Based on clinical assessment and the score on the AM-PAC Scale Score Assessment Tool, the G code and corresponding severity modifiers are documented below. Evaluation: 03/15/2018 Current Status: Carrying, Moving and Handling Objects: G8984 CJ 20-39% impaired Goal Status: Carrying, Moving and Handling Objects: G8985 CI 1-19% impaired Planned Interventions, Frequency, and Duration: Current Frequency: 2x/week Duration: 8 weeks Total Number of Visits Planned: 16 Planned Treatment Interventions: Therapeutic exercise;Neuromuscular re-education;Manual therapy;Patient/Family/Caregiver Education;ModalitiesUltrasound PLAN FOR NEXT VISIT: Assess symptom response to initial treatment and HEP. Review HEP to insure correct performance. Progress exercises and manual techniques (may include IASTM) according to symptom response. Patient demonstrates good understanding of plan of care and treatment. The above goals and plan of care were discussed and agreed upon by patient/family. SUBJECTIVE: Tasneem Batista is a 72 year old female seen today for Pt reports constant, dull neck pain and stiffness. She denies any positions or activities that increase or decrease the pain. She denies any limitations in activities. States she is scheduled to see nam orthopedic surgeon in April. (Pain into shoulders just in the last week.) Denies paraesthesias Functional Limitations: none Prior Level of Function: Independent without limitations Patient Goals: To reduce the pain and not feel so tight. Intake Information: Prescription present Previous Treatment: (Ibuprofen-raises blood sugar, muscle relaxer-feels fuzzy) Spine History Sleep Affected by Pain: Not affected by pain Pain Score: 6/10 Pain Location: Neck;Shoulder - Right;Shoulder - Left;Chest - Right;Chest - Left Description: Dull (can hear bones grinding when turns head) Frequency: Continuous Post Treatment Pain Score: 4/10 Pain Location: Neck Post Treatment Pain Description: (maybe a little better) OBJECTIVE MEASURES WITH LEVEL OF FUNCTION: Posture / Alignment Posture: Rounded shoulders Spine Palpation R Cervical Spine Palpation Tenderness: Upper trapezius;Paraspinals L Cervical Spine Palpation Tenderness: Upper trapezius;Paraspinals Cervical Spine AROM Cervical AROM determined by: Measurement Cervical Flexion (degrees)?: 55 Degrees (increased pain) Cervical Extension (degrees)?: 60 Degrees (increased pain) Cervical Side-Bend Right (degrees): 50 Degrees (most increase in pain) Cervical Side-Bend Left (degrees)?: 35 Degrees (most increase in pain) Cervical Rotation Right (degrees)?: 67 Degrees (greatest pain (L>R)) Cervical Rotation Left (degrees)?: 67 (greatest pain (L>R)) Repeated Test Movements - Cervical Repeated Test Movements - Cervical: Yes Cervical PRO - Symptoms During: increases Cervical PRO - Symptoms After: worse Cervical RET - Symptoms During: no effect Cervical RET - Symptoms After: no effect UE and Cervical Strength Cervical Strength: 3+/5 R UE Strength: 4/5 Special Tests - Cervical Cervical Special Tests: Cervical Compression;Cervical Distraction Cervical Compression: (uncomfortable, no significant effect on symptoms) Cervical Distraction: Negative Education: Education Learning Preferences: Demonstration;Explanation Barriers: None Learning/educational needs: Home exercise program;Plan of Care;Posture Education Provided: Yes, see treatment interventions for education provided Education Provided To: Patient Education Mode/Type: Demonstration;Explanation/Discussion;Literature/Printed Materials;Performance Response to Education/Teach Back: States/Identifies;Return Demonstration TREATMENT: Evaluation Evaluation Therapeutic Exercise: 1: *cervical retractions 1 x 10 reps 2: *posterior shoulder circles 1 x 20 reps Skilled Intervention: Patient was educated in proper exercise technique and purpose for exercises. Skilled judgment was provided in selection of appropriate interventions. Provided written instruction for home exercise program to facilitate proper performance and compliance. Correct performance of therapeutic exercises was facilitated with verbal and visual cuing. Patient education as noted. Modalities: Ultrasound Body Region Treated - Ultrasound: B cervical paraspinals and upper traps Patient Position: seated upright in chair Mode: 50% pulsed w/cm2: 1.2 Minutes: 10 See flowsheet for details regarding treatment. Skilled Intervention: Proper administration and selection of modality based on clinical presentation, deficits, and needs. Patient response monitored throughout treatment. Billing: [facility]: Evaluation - Low Complexity (40428) Therapeutic Exercise (73321): 1:1 time: 10 minutes (1 unit: 8-22 mins) Modalities Ultrasound (21669) 1:1 time: 10 minutes (1 unit: 8-22 mins) Total time: 45 minutes Carlos Brar PT Letter Text ENDOCRINOLOGY VISIT Observed: 03/14/2018 Status: F Source: [place] RE[place] 4:34 PM [facility] REPOSITORY [facility] [address] [place] [address] OFFICE VISIT Date of Service: 02/05/18 MR#: [id number] Acct: [id number] Name: TASNEEM BATISTA Rep #: [id number] : 1945 Provider: Jenny Laboy NP Age/Sex: 72/F Location: [facility] [place] Status: Signed with Addenda ADDENDUM by Jenny Laboy NP on 03/14/18 at 1634 Addendum entered and electronically signed by SABINO Schneider 03/14/18 16:34: Per insurance request I must specify exactly number of BG checks patient does in one day. Closest estimate would be 6. Per insurance request I must specify exactly he number of injections patient does in one day. If patient has no elevated readings patient gives exactly 4 injections per day. If patient has an elevated reading, patient would give exactly 5 injections a day Jose Laboy 03/14/2018 03/14/18 1634 <Electronically signed by Jenny GALLO> Date Jenny Laboy cc: * Signed HPI History of present illness Details: TASNEEM BATISTA, is a 72 F who presents to the office today for a follow-up of her diabetes type 1. She has a past medical history which is significant for that of type 1 diabetes, hyperlipidemia, osteoarthritis, spinal stenosis (seen Dr. Pelletier pain management), hypertension, and osteopenia. The patient states that she has been doing well since her previous office visit Most recent A1c was 5.9. She has occ episodes of hypoglycemia Taking her insulins appropriately. She does have a referral to podiatry. She is up-to-date on her yearly ophthalmology exam. Since our last visit she denies excessive thirst, increased frequency of urination, chest pain or dyspnea. Follows a diabetic diet, Is compliant with medication and is tolerating without side effects. SMBG 6-8 times daily 70-140 average She is tolerating her statin therapy well and states that she has started her calcium and vitamin D supplementation for osteopenia, She denies any recent fractures or falls. She states that she is up-to-date on her influenza and pneumonia vaccine. At time of visit: -Pt denies symptoms of hypertensive emergency (CP,SOB,HELLER, or blurred vision) and hypotension(dizziness or lightheadedness) -Pt denies symptoms of hypoglycemia ( sweaty, confusion, anxiety, tremor, hunger, palpitations) and hyperglycemia ( polydipsia, polyuria) -Pt denies potential medication adverse effect. Hypoglycemia Aware of hypoglycemia:yes Able to self treat low BG: Yes Frequent low Blood sugar: No Has supply of glucagon: Type: type 1 Weight and fatigue symptoms: Denies snoring Cardiopulmonary symptoms: Denies chest pain at rest, dyspnea on exertion, lightheadedness or myalgias GI symptoms: Denies constipation, diarrhea, nausea/dyspepsia or vomiting Other symptoms: Denies blurry vision or change in vision Self monitoring: Yes Glucometer type: one touch Percentage of fasting blood glucose within goal: most of the time Dietary compliance: Diabetes: good Glucose testing: demonstrates correct use of meter, understands testing schedule Sick day education - understands ketone testing: Yes Physical activity: regular Exam Const General: comfortable, no acute distress Nutritional Appearance: average body habitus [facility] Head: normal to inspection, atraumatic Ears: hearing grossly normal bilaterally Mouth: oral mucosae normal, moist mucous membranes Eyes General: appearance normal, both eyes and all related structures Eyelids: eyelids normal Conjunctivae: conjunctivae normal Sclera: sclerae normal Neck Neck: normal visual inspection, full ROM Neck mass: No Resp Effort AND Inspection: normal respiratory effort, able to speak in complete sentences, symmetric chest movement Auscultation: Bilateral: Clear to Auscultation Cardio Rate: regular rate Rhythm: regular rhythm Heart Sounds: S1 normal, S2 normal, no gallops, no murmurs, no rubs GI Inspection: normal to inspection Auscultation: normal bowel sounds Palpation: soft, no guarding Skin General: no rashes or lesions noted Wounds: no wounds Diabetic Foot Pulses: L dorsalis pedis pulse: normal, R dorsalis pedis pulse: normal Monofilament test: Left foot: normal, Right foot: normal Neuro General: gait normal, normal light touch, pain and propioception Cognition: normal cognition Speech: speech normal Gait: normal gait Extrem General: normal to inspection Psych Appearance: well kempt Mental Status: mental status grossly normal Mood: congruent mood Affect: normal affect Speech and Movement: speech and movement normal Attitude: cooperative Thought Process: normal Judgment: judgment good Weight and fatigue symptoms: Denies snoring Cardiopulmonary symptoms: Denies chest pain at rest, dyspnea on exertion, lightheadedness or myalgias GI symptoms: Denies constipation, diarrhea, nausea/dyspepsia or vomiting Other symptoms: Denies blurry vision or change in vision Intake Vital Signs02/05/18 Height 5 ft 4 in 02/05/18 Weight: 138 lb 8 oz 02/05/18 Body Mass Index (BMI) 23.8 02/05/18 Blood Pressure 121/76 02/05/18 Blood Pressure Location Lt popliteal 02/05/18 Blood Pressure Position Sitting Intake Visit Reasons: 3 M FU Rrt Required: No Accompanied by: Self Is patient in pain?: No Allergies codeine Allergy (Severe, Verified 02/21/18 10:01) Unknown Sulfa (Sulfonamide Antibiotics) Allergy (Severe, Verified 02/21/18 10:01) Unknown penicillin Allergy (Severe, Uncoded 02/21/18 10:01) Unknown Medications atorvastatin 40 mg tablet 40 mg PO QDAY 08/07/17 [History Confirmed 02/28/18] blood sugar diagnostic strips See Dose Instructions .ROUTE .MEDSUPPLY #20 ea 08/07/17 [History Confirmed 02/28/18] cetirizine 10 mg capsule 10 mg PO PRN cap 08/07/17 [History Confirmed 02/28/18] calcium carbonate 600 mg(1,500 mg)-vitamin D3 800 unit chewable tablet 1 tab PO BID 08/29/17 [History Confirmed 02/28/18] lisinopril 10 mg tablet 10 mg PO QDAY #90 tab 09/11/17 [Rx Confirmed 02/28/18] gabapentin 300 mg capsule 300 mg PO QHS #60 cap 11/30/17 [Rx Confirmed 02/28/18] insulin glargine (U-100) 100 unit/mL (3 mL) subcutaneous pen 12 unit SC QDAY #15 ml 12/10/17 [Rx Confirmed 02/28/18] insulin lispro (U-100) 100 unit/mL subcutaneous pen See Label Instructions SC TID #15 ml 12/10/17 [Rx Confirmed 02/28/18] Is last menstrual period known: No Post menopausal: Yes Patient : No Nurse's Note: blood sugars : low : high : PFSH Medical History Arthritis (Chronic) Back problem (Chronic) Pancreatitis (Acute) Diabetes type 1, controlled (Chronic) Osteoarthritis (Chronic) Carpal tunnel syndrome (Acute) Gallstones (Acute) History of carpal tunnel release (Acute) Skin cancer (Acute) Surgical History H/O: hysterectomy (Acute) History of cholecystectomy (Acute) History of tonsillectomy (Acute) History of total knee arthroplasty (Acute) Family History Mother Asthma Liver disease Father CVA (cerebral vascular accident) Social History Smoking Status: Never smoker second hand exposure: No alcohol intake: never substance use type: does not use what type of physical activity do you participate in: walking frequency: daily ROS Const Constitutional: No anorexia, body ache, chills, fatigue, fever(s), frequent falls, decreased energy, malaise, night sweats, weakness, weight change, sleep problems, abnormal sleep pattern, change in appetite, other, headache(s), snoring or excessive sweating Eyes Eyes: No blurry vision, change in vision, double vision, discharge, dry eyes, bulging eyes, floaters, visual disturbances, eye pain, light sensitivity, spots in vision, tunnel vision or other ENT ENT: Positive for neck pain; no abnormal hearing, ear pain, ear discharge, ear pressure, hearing loss, tinnitus, dizziness/vertigo, balance problems, nosebleed/epistaxis, nasal congestion, nasal obstruction, nose pain, sinus pressure, sinus pain, nasal discharge, post nasal drip, headache(s), facial pain, dental pain, dry mouth, bad breath, hoarseness, lip swelling, mouth lesions, mouth pain, sore throat, tongue swelling, throat swelling, other or difficulty swallowing Resp Respiratory: No cough, change in phlegm color, chest congestion, excessive phlegm production, hemoptysis, pain on inspiration, shortness of breath, pain with cough, snoring, stridor, wheezing or other Cardio Cardiology: No chest pain at rest, chest pain with exertion, leg pain with exertion, excessive sweating, shortness of breath, dyspnea on exertion, generalized swelling, irregular heart rhythm, lightheadedness, orthopnea, radiating jaw, neck or arm pain, fast heart rate, slow heart rate, palpitations or other Gastro GI: No abdominal pain, belching, bloating, change in bowel habits, change in stool character, coffee ground emesis, constipation, cramping, diarrhea, heartburn, difficulty swallowing, feeling full early, excessive flatus, incontinent of stools, Vomiting blood/hematemesis, blood in stool, loose stools, Black,tarry stools, nausea/dyspepsia, pain with swallowing, vomiting or other Genitourinary-Female: No difficulty urinating, burning urination, painful urination, urinary incontinence, urinary frequency, urinary urgency, urinary hesitancy, urinary retention, blood in urine, Frequent nighttime urination/ nocturia, post void dribbling, suprapubic fullness, side pain, sexual problems, genital lesions, genital itching, hot flashes, abnormal periods, abnormal vaginal bleeding, absent period, painful periods, light periods, heavy periods, difficulty getting , painful intercourse, pelvic pain, vaginal dryness, vaginal odor, Vaginal Itching or other Musc Musculoskeletal: Positive for neck pain; no abnormal walking, joint pain, back pain, deformity, joint swelling, limited range of motion, loss of height, muscle cramps, muscle weakness, decreased muscle mass, body aches, numbness, radiating pain into limb, stiffness, tingling or other Skin Skin: No acne, hair loss, change in hair, nail changes, boil, change in skin color, dry skin, redness, excessive hair growth, yellowing of the skin, lesions, itching, rash, skin pain, skin ulcer, sores, skin swelling, wounds or other Breast Breast: No other Neuro Neurology: No frequent falls, weakness, visual disturbances, abnormal hearing, headache(s), abnormal walking, numbness or tingling Psych Psychiatric: No abnormal sleep pattern, No change in appetite Endo Endocrine: No fatigue, other or excessive sweating Aller/Imm Allergy/Immunologic: No lip swelling, tongue swelling, throat swelling, wheezing or itchy eyes Assessment AND Plan Problems 1. Controlled diabetes mellitus type 1 without complications E10.9 2. 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 E10.69; E78.5 3. Osteopenia, unspecified location M85.80 Plan Reduce long acting insulin by at least one unit daily to avoid hypoglycemia. BMD every 2 years per schedule; I would like a copy please. Chol in range Up to date with vision, vaccines, well exams. Plan Detail Additional Comments 1. Please schedule follow up in 3 months. 2. Lab work one week before appointment. 3. Discussed importance of regular exercise and recommend starting or continuing a regular exercise program for good health. 4. The patient was encouraged to lose weight for good health 5. The importance of monitoring blood sugar regularly was reviewed. 6. The importance of monitoring the HBA1c level regularly was reviewed. 7. The importance of prper foot care and regularly checking feet to prevent sores and loss of limbs was reviewed. 8. The importance of keeping BP at or below 130/80 to prevent stroke, heart attacks, kidney failure, blindness was reviewed. Spent approximately 45 minutes with patient with over 50% of time spent in discussion and counseling regarding medication adjustment, symptoms and treatment of hypoglycemia, diet adherence, and checking BG before driving. Reviewed labs and medications, vitals and medical records. Coding Level of Care Code Off vis,est,level 4 Diagnoses Controlled diabetes mellitus type 1 without complications E10.9 Diabetes mellitus complication status: without complication 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 E10.69; E78.5 Osteopenia, unspecified location M85.80 Osteopenia location: unspecified Time Spent (min) 45 03/08/18 0615 <Electronically signed by Jenny GALLO> Date [facility] Signature: Date (if applicable) CC: SPINE CERVICAL Observed: 02/26/2018 Status: F Source: CORRY (ROUTINE) 1:04 PM [facility] REPOSITORY [facility] Imaging Services [address] [place] [address] Spine Cervical (Routine) MR#: [id number] Acct: [id number] Name: TASNEEM BATISTA Rep #: [id number] : 1945 F 72 From: Armando Velasquez MD PCP: Kumar Mcguire MD Status: REG CLI Study: Spine Cervical (Routine) Date of Exam: 02/26/18 Exam# [id number] Ordering Dr: Alina Murguia STUDY: MRI CERVICAL SPINE WITHOUT CONTRAST REASON FOR EXAM: Female, 72 years old. Neck pain TECHNIQUE: Standardized fat and water weighted pulse sequences were obtained in the sagittal and axial planes. COMPARISON: None FINDINGS: Normal foramen magnum and brainstem-cervical cord junction. Normal craniovertebral junction. Normal anterior atlantoaxial articulation. Normal odontoid process. Normal cervical lordosis. Normal vertebral bodies and posterior osseous elements. C2-3: Normal endplates. Normal disc height, signal and morphology. Normal central canal and intervertebral neural foramina. C3-4: Moderate narrowing of the neural foramen on the left. Central canal and right neural foramen patent. C4-5: Moderate disc space narrowing and narrowing of the neural foramen on the left. Central canal and right neural foramen patent. C5-6: Moderate narrowing of the neural foramina bilaterally. Broad-based posterior disc marginal osteophyte. Central canal measures 8 mm in the midline. C6-7: Moderate narrowing of the neural foramina bilaterally due to uncinate spondylosis. Central canal patent. C7-T1: Normal endplates. Normal disc height, signal and morphology. Normal central canal and intervertebral neural foramina. Normal cervical cord. Normal visualized soft tissue structures. MRI/Spine Cervical (Routine) IMPRESSION: Multilevel central and lateral spinal stenosis most severe at C5-6 Electronically Signed: Armando Velasquez MD at 19:47 EDT , Service support , CC: Kumar Mcguire MD; Alina Murguia NP Pharmacy Order Entry Technician: Signed CERV SPINE 4 OR 5 Observed: 02/18/2018 Status: F Source: CORRY VIEWS 11:12 AM [facility] REPOSITORY [facility] Imaging Services [address] [place] [address] Cerv Spine 4 or 5 Views MR#: [id number] Acct: [id number] Name: TASNEEM BATISTA Rep #: [id number] : 1945 F 72 From: Zuhair Landrum MD PCP: Kumar Mcguire MD Status: REG CLI Study: Cerv Spine 4 or 5 Views Date of Exam: 02/18/18 Exam# [id number] Ordering Dr: Alina Murguia SENIOR SYSTEM OPERATOR-C STUDY: X-RAY - CERVICAL SPINE REASON FOR EXAM: Female, 72 years old. Neck pain TECHNIQUE: 5 view(s) of the cervical spine were obtained. COMPARISON: None FINDINGS: Moderate to moderately severe disc narrowing is present between C3 and C7 with small partially bridging anterior osteophytes, posterior uncovertebral joint hypertrophy, minimal facet arthropathy. In the oblique views the uncovertebral joint hypertrophy contributes to mild bony foraminal narrowing at multiple levels. There is mild cervicothoracic scoliosis. There is preserved lordosis. There is normal vertebral body height and alignment. The posterior elements appear intact. The prevertebral soft tissues appear normal. The odontoid and lateral masses are intact and aligned. Apical thoracic structures unremarkable. RAD/Cerv Spine 4 or 5 Views IMPRESSION: Multilevel cervical degenerative disc disease with evidence of multilevel foraminal narrowing secondary to uncovertebral joint hypertrophy. Cord for any symptoms of cervical radiculopathy that may indicate the presence of nerve root impingement. Consider follow-up MRI of the cervical spine for more complete characterization if clinically appropriate. Electronically Signed: Zuhair Lucita, at 14:35 EDT Tel , Service support , CC: Kumar Mcguire MD; Alina Murguia NP Pharmacy Order Entry Technician: Signed COMPREHENSIVE METABOLIC Collected: 02/01/2018 Status: F [facility]22 [facility] REPOSITORY TYPE CODE TESTS RESULT OUT OF RANGE REFERENCE UNITS LAB L501.0100 74-106 mg/dL Normal GLU 95 Result Comment: Please note revised GLUCOSE reference range effective 2017. LAB L501.1000 7-18 mg/dL High BUN 33 LAB L501.1100 0.55-1.02 mg/dL Normal CREAT,SERUM 0.86 Result Comment: The validity of the calculated GFR AND GFRAA in patients over 70 years has not been determined. Clinical correlation is essential. LAB L501.1110 >60 mL/min Normal EST GFR 69 Result Comment: Non- GFR Calc LAB L501.1115 >60 mL/min Normal EST GFR - AA 83 Result Comment: GFR Calc LAB L501.1300 10-20 RATIO High BUN/CRE 38.5 LAB L501.1500 6.4-8.2 g/dL T Normal PROT 6.5 LAB L501.1800 3.2-5.0 g/dL Normal ALB 3.5 LAB L501.1950 2.2-4.2 g/dL Normal GLOB 3.0 LAB L501.2000 0.9-2.4 RATIO Normal A/G 1.2 LAB L501.2200 8.5-10.1 mg/dL CA Normal 9.0 LAB L501.4100 15-37 U/L Normal AST 26 LAB L501.4305 45-117 U/L Low ALK P 43 LAB L501.4405 13-56 U/L Normal ALT 30 LAB L501.4600 0.20-1.00 mg/dL T Normal BILI 0.50 LAB L501.5300 136-145 mmol/L NA Normal 142 LAB L501.5600 3.5-5.1 mmol/L K Normal 4.1 LAB L501.5900 98-107 mmol/L High CL 110 LAB L501.6100 21.0-32.0 mmol/L Normal CO2 27.0 LAB L501.6200 5-15 Normal GAP 5 Performed By: #### L500.4050, L501.1200, L502.0500 #### [facility] [address] [place], [address] CREATININE, URINE Collected: 02/01/2018 Status: F Source: CORRY (RANDOM) 8:22 AM [facility] REPOSITORY TYPE CODE TESTS RESULT OUT OF RANGE REFERENCE UNITS LAB L501.1200 NO RANGE EST. mg/dL Normal UR CREAT 87.10 Performed By: #### L500.4050, L501.1200, L502.0500 #### [facility] [address] [place], [place], [address] MICROALBUMIN,RANDOM URINE Collected: Status: F Source: NAHOMY 02/01/2018 8:22 AM [facility] REPOSITORY TYPE CODE TESTS RESULT OUT OF RANGE REFERENCE UNITS LAB L502.0500 NO RANGE EST. mg/L Normal 13.3 MICROALBUMIN ,UR Performed By: #### L500.4050, L501.1200, L502.0500 #### [facility] [address] [place], [address] HEMOGLOBIN A1C Collected: 02/01/2018 Status: F Source: CORRY 8:22 AM [facility] REPOSITORY TYPE CODE TESTS RESULT OUT OF RANGE REFERENCE UNITS LAB L501.9985 4.2-6.3 % Normal HGB A1C 5.9 Performed By: #### L501.9985 #### [facility] [address] [place], [address] ENDOCRINOLOGY VISIT Observed: 11/05/2017 Status: F Source: NAHOMY REPORT 11:26 AM [facility] REPOSITORY [facility] [address] [place] [address] OFFICE VISIT Date of Service: 11/05/17 MR#: [id number] Acct: [id number] Name: TASNEEM BATISTA Rep #: [id number] : 1945 Provider: Jenny Laboy NP Age/Sex: 72/F Location: [facility] [place] Status: Signed HPI History of present illness Details: TASNEEM BATISTA, is a 72 F who presents to the office today for a follow-up of her diabetes type 1. She has a past medical history which is significant for that of type 1 diabetes, hyperlipidemia, osteoarthritis, spinal stenosis (seen Dr. Pelletier pain management), hypertension, and osteopenia. The patient states that she has been doing well since her previous office visit Most recent A1c was 6.1. She denies any episodes of hypoglycemia as taking her insulins appropriately. She does have a referral to podiatry, but has not scheduled that appointment yet. She is up-to-date on her yearly ophthalmology exam. She is tolerating her statin therapy well and states that she has started her calcium and vitamin D supplementation for osteopenia, however she is only taking it once daily. She denies any recent fractures or falls. She states that she is up-to-date on her influenza and pneumonia vaccine. At time of visit: -Pt denies symptoms of hypertensive emergency (CP,SOB,HELLER, or blurred vision) and hypotension(dizziness or lightheadedness) -Pt denies symptoms of hypoglycemia ( sweaty, confusion, anxiety, tremor, hunger, palpitations) and hyperglycemia ( polydipsia, polyuria) -Pt denies potential medication adverse effect. Hypoglycemia Aware of hypoglycemia:yes Able to self treat low BG: Yes Frequent low Blood sugar: No Has supply of glucagon: Type: type 1 Weight and fatigue symptoms: Denies snoring Cardiopulmonary symptoms: Denies chest pain at rest, dyspnea on exertion, lightheadedness or myalgias GI symptoms: Denies constipation, diarrhea, nausea/dyspepsia or vomiting Other symptoms: Denies blurry vision or change in vision Self monitoring: Yes Glucometer type: one touch Percentage of fasting blood glucose within goal: most of the time Dietary compliance: Diabetes: good Glucose testing: demonstrates correct use of meter, understands testing schedule Sick day education - understands ketone testing: Yes Physical activity: regular Exam Const General: comfortable, no acute distress Nutritional Appearance: average body habitus [facility] Head: normal to inspection, atraumatic Ears: hearing grossly normal bilaterally Mouth: oral mucosae normal, moist mucous membranes Eyes General: appearance normal, both eyes and all related structures Eyelids: eyelids normal Conjunctivae: conjunctivae normal Sclera: sclerae normal Neck Neck: normal visual inspection, full ROM Neck mass: No Resp Effort AND Inspection: normal respiratory effort, able to speak in complete sentences, symmetric chest movement Auscultation: Bilateral: Clear to Auscultation Cardio Rate: regular rate Rhythm: regular rhythm Heart Sounds: S1 normal, S2 normal, no gallops, no murmurs, no rubs GI Inspection: normal to inspection Auscultation: normal bowel sounds Palpation: soft, no guarding Skin General: no rashes or lesions noted Wounds: no wounds Diabetic Foot Pulses: L dorsalis pedis pulse: normal, R dorsalis pedis pulse: normal Monofilament test: Left foot: normal, Right foot: normal Neuro General: gait normal, normal light touch, pain and propioception Cognition: normal cognition Speech: speech normal Gait: normal gait Extrem General: normal to inspection Psych Appearance: well kempt Mental Status: mental status grossly normal Mood: congruent mood Affect: normal affect Speech and Movement: speech and movement normal Attitude: cooperative Thought Process: normal Judgment: judgment good Intake Vital Signs11/05/17 Height 5 ft 4 in 11/05/17 Weight: 139 lb 11/05/17 Body Mass Index (BMI) 23.8 11/05/17 Blood Pressure 104/68 11/05/17 Blood Pressure Location Lt popliteal Intake Visit Reasons: 3 M FU Rrt Required: No Accompanied by: Self Is patient in pain?: No Allergies codeine Allergy (Severe, Verified 11/05/17 09:43) Unknown Sulfa (Sulfonamide Antibiotics) Allergy (Severe, Verified 11/05/17 09:43) Unknown penicillin Allergy (Severe, Uncoded 11/05/17 09:43) Unknown Medications atorvastatin 40 mg tablet 40 mg PO QDAY 08/07/17 [History Confirmed 11/05/17] blood sugar diagnostic strips See Dose Instructions .ROUTE .MEDSUPPLY #20 ea 08/07/17 [History Confirmed 11/05/17] cetirizine 10 mg capsule 10 mg PO PRN cap 08/07/17 [History Confirmed 11/05/17] cholecalciferol (vitamin D3) 1,000 unit capsule 1,000 unit PO ONCE 08/07/17 [History Confirmed 11/05/17] insulin aspart U-100 100 unit/mL subcutaneous pen 2 unit SC TID ml 08/07/17 [History Confirmed 11/05/17] insulin glargine (U-100) 100 unit/mL (3 mL) subcutaneous pen 11 unit SC ONCE ml 08/07/17 [History Confirmed 11/05/17] calcium carbonate 600 mg calcium (1,500 mg) tablet 600 mg PO ONCE tab 08/29/17 [History Confirmed 11/05/17] calcium carbonate 600 mg(1,500 mg)-vitamin D3 800 unit chewable tablet 1 tab PO BID 08/29/17 [History Confirmed 11/05/17] codeine 10 mg-guaifenesin 100 mg/5 mL oral liquid 10 ml PO Q6H PRN #120 ml 08/29/17 [Rx Confirmed 11/05/17] gabapentin 300 mg capsule 300 mg PO QHS #60 cap 09/11/17 [Rx Confirmed 11/05/17] lisinopril 10 mg tablet 10 mg PO QDAY #90 tab 09/11/17 [Rx Confirmed 11/05/17] Is last menstrual period known: No Post menopausal: Yes Patient : No Nurse's Note: Blood sugars : Low : 57 High : 203 PFSH Medical History Arthritis (Chronic) Back problem (Chronic) Pancreatitis (Acute) Diabetes type 1, controlled (Chronic) Osteoarthritis (Chronic) Carpal tunnel syndrome (Acute) Gallstones (Acute) History of carpal tunnel release (Acute) Skin cancer (Acute) Surgical History H/O: hysterectomy (Acute) History of cholecystectomy (Acute) History of tonsillectomy (Acute) History of total knee arthroplasty (Acute) Family History Mother Asthma Liver disease Father CVA (cerebral vascular accident) Social History Smoking Status: Never smoker second hand exposure: No alcohol intake: never substance use type: does not use what type of physical activity do you participate in: walking frequency: daily ROS Const Constitutional: No anorexia, body ache, chills, fatigue, fever(s), frequent falls, decreased energy, malaise, night sweats, weakness, weight change, sleep problems, abnormal sleep pattern, change in appetite, other, headache(s), snoring or excessive sweating Eyes Eyes: No blurry vision, change in vision, double vision, discharge, dry eyes, bulging eyes, floaters, visual disturbances, eye pain, light sensitivity, spots in vision, tunnel vision or other ENT ENT: No abnormal hearing, ear pain, ear discharge, ear pressure, hearing loss, tinnitus, dizziness/vertigo, balance problems, nosebleed/epistaxis, nasal congestion, nasal obstruction, nose pain, sinus pressure, sinus pain, nasal discharge, post nasal drip, headache(s), facial pain, dental pain, dry mouth, bad breath, hoarseness, lip swelling, mouth lesions, mouth pain, sore throat, tongue swelling, throat swelling, other, difficulty swallowing or neck pain Resp Respiratory: No cough, change in phlegm color, chest congestion, excessive phlegm production, hemoptysis, pain on inspiration, shortness of breath, pain with cough, snoring, stridor, wheezing or other Cardio Cardiology: No chest pain at rest, chest pain with exertion, leg pain with exertion, excessive sweating, shortness of breath, dyspnea on exertion, generalized swelling, irregular heart rhythm, lightheadedness, orthopnea, radiating jaw, neck or arm pain, fast heart rate, slow heart rate, palpitations or other Gastro GI: No abdominal pain, belching, bloating, change in bowel habits, change in stool character, coffee ground emesis, constipation, cramping, diarrhea, heartburn, difficulty swallowing, feeling full early, excessive flatus, incontinent of stools, Vomiting blood/hematemesis, blood in stool, loose stools, Black,tarry stools, nausea/dyspepsia, pain with swallowing, vomiting or other Genitourinary-Female: No difficulty urinating, burning urination, painful urination, urinary incontinence, urinary frequency, urinary urgency, urinary hesitancy, urinary retention, blood in urine, Frequent nighttime urination/ nocturia, post void dribbling, suprapubic fullness, side pain, sexual problems, genital lesions, genital itching, hot flashes, abnormal periods, abnormal vaginal bleeding, absent period, painful periods, light periods, heavy periods, difficulty getting , painful intercourse, pelvic pain, vaginal dryness, vaginal odor, Vaginal Itching or other Musc Musculoskeletal: Positive for back pain; no abnormal walking, joint pain, deformity, joint swelling, limited range of motion, loss of height, muscle cramps, muscle weakness, decreased muscle mass, body aches, neck pain, numbness, radiating pain into limb, stiffness, tingling or other Neuro Neurology: No frequent falls, weakness, visual disturbances, abnormal hearing, headache(s), abnormal walking, numbness or tingling Psych Psychiatric: No abnormal sleep pattern, No change in appetite Endo Endocrine: No fatigue, other or excessive sweating Aller/Imm Allergy/Immunologic: No lip swelling, tongue swelling, throat swelling or wheezing Assessment AND Plan 1. Controlled diabetes mellitus type 1 without complications E10.9 Plan A1c remains 6.1 Occ lowish in the am. Will trial lantus 11 and see if am BG can be raised to 70 range. Eye exam up to date BP in range. Diet well controlled. 2. 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 E10.69; E78.5 Coding Level of Care Code Off vis,est,level 3 Diagnoses Controlled diabetes mellitus type 1 without complications E10.9 Diabetes mellitus complication status: without complication 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 E10.69; E78.5 Time Spent (min) 30 11/05/17 1126 <Electronically signed by Jenny GALLO> Date Jenny GALLO Cosigner Signature: Date (if applicable) CC: HEMOGLOBIN A1C Collected: 10/26/2017 Status: F Source: NAHOMY 8:48 AM [facility] REPOSITORY Order Comment: Order Date: 05/12/17 Order Info: [id number] - *HgA1C TYPE CODE TESTS RESULT OUT OF RANGE REFERENCE UNITS LAB L501.9985 4.2-6.3 % Normal HGB A1C 6.1 Performed By: #### L501.9985 #### [facility] [address] [place], [address] COMPREHENSIVE METABOLIC Collected: 10/26/2017 Status: F Source: NAHOMY RICHARD 8:48 AM [facility] REPOSITORY Order Comment: Order Date: 05/12/17 Order Info: [id number] - *HgA1C TYPE CODE TESTS RESULT OUT OF RANGE REFERENCE UNITS LAB L501.0100 74-106 mg/dL Normal GLU 76 Result Comment: Please note revised GLUCOSE reference range effective 2017. LAB L501.1000 7-18 mg/dL High BUN 30 LAB L501.1100 0.55-1.02 mg/dL Normal CREAT,SERUM 0.78 Result Comment: The validity of the calculated GFR AND GFRAA in patients over 70 years has not been determined. Clinical correlation is essential. LAB L501.1110 >60 mL/min Normal EST GFR 76 Result Comment: Non- GFR Calc LAB L501.1115 >60 mL/min Normal EST GFR - AA 92 Result Comment: GFR Calc LAB L501.1300 10-20 RATIO High BUN/CRE 38.3 LAB L501.1500 6.4-8.2 g/dL T Normal PROT 6.4 LAB L501.1800 3.2-5.0 g/dL Normal ALB 3.4 LAB L501.1950 2.2-4.2 g/dL Normal GLOB 3.0 LAB L501.2000 0.9-2.4 RATIO Normal A/G 1.1 LAB L501.2200 8.5-10.1 mg/dL CA Normal 8.6 LAB L501.4100 15-37 U/L High AST 49 LAB L501.4305 45-117 U/L Normal ALK P 46 LAB L501.4405 13-56 U/L High ALT 68 Result Comment: Please note revised ALT reference range effective 2017. LAB L501.4600 0.20-1.00 mg/dL Normal T BILI 0.50 LAB L501.5300 136-145 mmol/L Normal NA 141 LAB L501.5600 3.5-5.1 mmol/L Normal K 4.2 LAB L501.5900 98-107 mmol/L High CL 109 LAB L501.6100 21.0-32.0 mmol/L Normal CO2 25.0 LAB L501.6200 5-15 Normal GAP 7 Performed By: #### L500.4050 #### [facility] [address] [place], [address] OFFICE VISIT REPORT Observed: 09/26/2017 Status: F Source: NAHOMY 12:18 PM [facility] REPOSITORY [facility] [address] [place] [address] OFFICE VISIT Date of Service: 08/07/17 MR#: [id number] Acct: [id number] Patient: TASNEEM BATISTA Rep #: [id number] : 1945 Provider: Jenny Laboy NP Age/Sex: 72/F Location: [facility] [place] Status: Signed HPI History of present illness Weight and fatigue symptoms: Denies snoring Cardiopulmonary symptoms: Denies chest pain at rest, dyspnea on exertion, lightheadedness or myalgias GI symptoms: Denies constipation, diarrhea, nausea/dyspepsia or vomiting Skin and extremity symptoms: Denies erectile dysfunction Other symptoms: Denies blurry vision or change in vision Exam Const General: cooperative, healthy appearing, well groomed Orientation: alert, awake, oriented x3 HENMT Head: normal to inspection Ears: hearing grossly normal bilaterally Eyes Eyelids: eyelids normal Conjunctivae: conjunctivae normal Sclera: sclerae normal Neck Thyroid: thyroid normal Resp Effort AND Inspection: normal respiratory effort, able to speak in complete sentences, symmetric chest movement Cardio Rate: regular rate Rhythm: regular rhythm Heart Sounds: S1 normal, S2 normal GI Inspection: normal to inspection Auscultation: normal bowel sounds Skin General: no rashes or lesions noted Lesions: no lesions Diabetic Foot Pulses: L dorsalis pedis pulse: normal, R dorsalis pedis pulse: normal Monofilament test: Left foot: normal, Right foot: normal Neuro Cranial Nerves: CN's II-XI intact bilaterally Extrem General: normal to inspection, no pedal edema Psych Affect: normal affect Speech and Movement: speech and movement normal Attitude: cooperative Thought Process: normal Intake Vital Signs08/07/17 Height 5 ft 3.5 in 08/07/17 Weight: 142 lb 08/07/17 Body Mass Index (BMI) 24.7 08/07/17 Blood Pressure 112/74 08/07/17 Blood Pressure Position Sitting Intake Visit Reasons: 3 M FU Rrt Required: No Is patient in pain?: No Allergies codeine Allergy (Severe, Verified 08/07/17 10:01) Unknown Sulfa (Sulfonamide Antibiotics) Allergy (Severe, Verified 08/07/17 10:01) Unknown penicillin Allergy (Severe, Uncoded 08/07/17 10:01) Unknown Medications acetaminophen ER 650 mg tablet,extended release 650 mg PO Q8H PRN tab 08/07/17 [History Confirmed 08/07/17] atorvastatin 40 mg tablet 40 mg PO QDAY 08/07/17 [History Confirmed 08/07/17] blood sugar diagnostic strips See Dose Instructions .ROUTE .MEDSUPPLY #20 ea 08/07/17 [History Confirmed 08/07/17] cetirizine 10 mg capsule 10 mg PO PRN cap 08/07/17 [History Confirmed 08/07/17] cholecalciferol (vitamin D3) 1,000 unit capsule 1,000 unit PO ONCE 08/07/17 [History Confirmed 08/07/17] gabapentin 300 mg capsule 300 mg PO QHS cap 08/07/17 [History Confirmed 08/07/17] insulin aspart 100 unit/mL subcutaneous pen 2 unit SC TID ml 08/07/17 [History Confirmed 08/07/17] insulin glargine 100 unit/mL (3 mL) subcutaneous pen 11 unit SC ONCE ml 08/07/17 [History Confirmed 08/07/17] lisinopril 10 mg tablet 10 mg PO QDAY 08/07/17 [History Confirmed 08/07/17] PFSH Medical History Arthritis (Acute) Back problem (Acute) Carpal tunnel syndrome (Acute) Diabetes type 1, controlled (Acute) Gallstones (Acute) History of carpal tunnel release (Acute) Osteoarthritis (Acute) Pancreatitis (Acute) Skin cancer (Acute) Surgical History H/O: hysterectomy (Acute) History of cholecystectomy (Acute) History of tonsillectomy (Acute) History of total knee arthroplasty (Acute) Family History Mother Asthma Liver disease Father CVA (cerebral vascular accident) Social History Smoking Status: Never smoker second hand exposure: No alcohol intake: never substance use type: does not use ROS Const Constitutional: No anorexia, body ache, chills, fatigue, fever(s), frequent falls, decreased energy, malaise, night sweats, weakness, weight change, sleep problems, abnormal sleep pattern, change in appetite, headache(s), snoring, excessive sweating or other Eyes Eyes: No blurry vision, change in vision, double vision, discharge, dry eyes, bulging eyes, floaters, visual disturbances, eye pain, light sensitivity, spots in vision, tunnel vision or other ENT ENT: No abnormal hearing, ear pain, ear discharge, ear pressure, hearing loss, tinnitus, dizziness/vertigo, balance problems, nosebleed/epistaxis, nasal congestion, nasal obstruction, nose pain, sinus pressure, sinus pain, nasal discharge, post nasal drip, headache(s), facial pain, dental pain, dry mouth, bad breath, hoarseness, lip swelling, mouth lesions, mouth pain, sore throat, tongue swelling, throat swelling, difficulty swallowing, neck pain or other Resp Respiratory: No cough, change in phlegm color, chest congestion, excessive phlegm production, hemoptysis, pain on inspiration, shortness of breath, pain with cough, snoring, stridor, wheezing or other Cardio Cardiology: No chest pain at rest, chest pain with exertion, leg pain with exertion, excessive sweating, shortness of breath, dyspnea on exertion, generalized swelling, irregular heart rhythm, lightheadedness, orthopnea, radiating jaw, neck or arm pain, fast heart rate, slow heart rate, palpitations or other Gastro GI: No abdominal pain, belching, bloating, change in bowel habits, change in stool character, coffee ground emesis, constipation, cramping, diarrhea, heartburn, difficulty swallowing, feeling full early, excessive flatus, incontinent of stools, Vomiting blood/hematemesis, blood in stool, loose stools, Black,tarry stools, nausea/dyspepsia, pain with swallowing, vomiting or other Genitourinary: No difficulty urinating, burning urination, painful urination, urinary incontinence, urinary frequency, urinary urgency, urinary hesitancy, urinary retention, blood in urine, Frequent nighttime urination/ nocturia, post void dribbling, suprapubic fullness, side pain, sexual problems, genital lesions, genital itching, hot flashes, abnormal periods, abnormal vaginal bleeding, absent period, painful periods, light periods, heavy periods, difficulty getting , painful intercourse, pelvic pain, vaginal dryness, vaginal odor, vaginal itching, erectile dysfunction, penile discharge, difficulty with ejaculations, blood in semen, scrotal swelling, testicle lump, testicle pain or other Musc Musculoskeletal: No abnormal walking, joint pain, back pain, deformity, joint swelling, limited range of motion, loss of height, muscle cramps, muscle weakness, decreased muscle mass, body aches, neck pain, numbness, radiating pain into limb, stiffness, tingling or other Skin Skin: No other Neuro Neurology: No frequent falls, weakness, visual disturbances, abnormal hearing, headache(s), abnormal walking, numbness, tingling or other Psych Psychiatric: No abnormal sleep pattern, No change in appetite, No other Endo Endocrine: No fatigue, excessive sweating or other Aller/Imm Allergy/Immunologic: No lip swelling, tongue swelling, throat swelling, wheezing or other Oliver/Lymp Hematologic/Lymphatic: No other Assessment AND Plan Problems 1. 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 E10.69; E78.5 2. Controlled diabetes mellitus type 1 without complications E10.9; E10.9; E10.9; E10.9 Patient Instructions Continue current medications Orders Orders: Plan Detail Additional Comments RTC 3 months Labs before visit Continue to monitor and avoid hypoglycemia Follow Up 3 Months 08/08/17 8960 <Electronically signed by Jenny GALOL> Date Jenny GALLO Cosigner Signature: Date (if applicable) CC: OBSOLETE Observed: 09/11/2017 Status: COMPLETED Source: [place] 12:00 AM [facility] REPOSITORY Refill (INTMWS) TASNEEM BATISTA ([id number]) 1945 F Date Time Provider Department 09/11/17 MARY CAMPBELL (SENIOR SYSTEM OPERATOR)(HIST) INTMWS During your visit today, we recorded the following information about you: Anne Adams, RN, RN 09/17/2017 9:48 AM Signed Patient has not been seen since 08/2016 by Mary Campbell, no future appt scheduled. Attempt to contact pt, number not working. Gabapentin request denied. Flexion message sent to patient. Allergies As of Date: 09/11/2017 Noted Allergy Reaction CONTRAST DYE 05/09/2011 14 - Other: See Comments Comments: Face flushing and redness PENICILLINS 08/17/2009 2 - Rash SULFA (SULFONAMIDE ANTIBIOTICS) 08/17/2009 2 - Rash VICODIN (HYDROCODONE-ACETAMINOPHE*08/17/2009 5 - Intolerance Date Reviewed: 05/16/2016 Reviewed by: Krissy Mccartney LPN - Fully Assessed Reason for Visit: Refill Request [94] Prescriptions as of 09/11/2017 Sig: INSULIN LISPRO 100 UNIT/ML PURVIS* Use 5 units with each meal KETOCONAZOLE 2 % SHAMPOO Apply 1 application to affect* CETIRIZINE 10 MG TABLET Take 1 tablet by mouth once d* INSULIN GLARGINE 100 UNIT/ML * 10-12 Units daily at bedtime. GABAPENTIN 300 MG CAPSULE Take 1 capsule by mouth daily* LISINOPRIL 10 MG TABLET Take 1 tablet by mouth once d* BLOOD SUGAR DIAGNOSTIC STRIPS Use as instructed. Tests blo* ATORVASTATIN 40 MG TABLET Take 1 tablet by mouth once d* PEN NEEDLE, DIABETIC 31 GAUGE* Use one needle per dose. 4 pe* CHOLECALCIFEROL (VITAMIN D3) * Take 2 capsules by mouth once* LANCETS Test blood sugar(s) 4 daily. * Problem List As Of Date 09/11/2017 Noted Resolved SPINAL STENOSIS-LUMBAR [M48.061] INVALID FOR* More... Palpitations [R00.2] INVALID FOR*02/03/2013 More... Type 1 diabetes mellitus [E10.9] INVALID FOR*11/09/2015 More... Hyperlipidemia with target LDL less than 100 [E*INVALID FOR* PAT (paroxysmal atrial tachycardia) (HCC) [I47.*INVALID FOR* More... Type 1 diabetes mellitus without complications *INVALID FOR*11/09/2015 Tubular adenoma of colon [D12.6] INVALID FOR* Type 1 diabetes mellitus without complication (*INVALID FOR*02/09/2016 Type 1 diabetes mellitus without complication, *INVALID FOR* BCC (basal cell carcinoma of skin) [C44.91] INVALID FOR* More... Encounter Status:Closed by ANNE ADAMS on 09/17/17 INTERNAL MEDICINE Observed: 08/29/2017 Status: F Source: [place] OFFICE VISIT 9:50 AM [facility] Internal Medicine [address] [place] [address] OFFICE VISIT Date of Service: 08/29/17 MR#: [id number] Acct: [id number] Name: TASNEEM BATISTA Rep #: [id number] : 1945 Provider: Alina Murguia NP Age/Sex: 72/F Location: [facility] [place].[place] Status: Signed Intake Vital Signs08/29/17 Height 5 ft 4 in 08/29/17 Weight: 143 lb 08/29/17 Body Mass Index (BMI) 24.5 08/29/17 Blood Pressure 129/84 08/29/17 Blood Pressure Location Rt brachial Intake Visit Reasons: 3 M FU Chief Complaint: follow-up visit Is patient in pain?: No Allergies codeine Allergy (Severe, Verified 08/07/17 10:01) Unknown Sulfa (Sulfonamide Antibiotics) Allergy (Severe, Verified 08/07/17 10:01) Unknown penicillin Allergy (Severe, Uncoded 08/07/17 10:01) Unknown Medications atorvastatin 40 mg tablet 40 mg PO QDAY 08/07/17 [History Confirmed 08/29/17] blood sugar diagnostic strips See Dose Instructions .ROUTE .MEDSUPPLY #20 ea 08/07/17 [History Confirmed 08/29/17] cetirizine 10 mg capsule 10 mg PO PRN cap 08/07/17 [History Confirmed 08/29/17] cholecalciferol (vitamin D3) 1,000 unit capsule 1,000 unit PO ONCE 08/07/17 [History Confirmed 08/29/17] gabapentin 300 mg capsule 300 mg PO QHS cap 08/07/17 [History Confirmed 08/29/17] insulin aspart 100 unit/mL subcutaneous pen 2 unit SC TID ml 08/07/17 [History Confirmed 08/29/17] insulin glargine 100 unit/mL (3 mL) subcutaneous pen 11 unit SC ONCE ml 08/07/17 [History Confirmed 08/29/17] lisinopril 10 mg tablet 10 mg PO QDAY 08/07/17 [History Confirmed 08/29/17] calcium carbonate 600 mg calcium (1,500 mg) tablet 600 mg PO ONCE tab 08/29/17 [History Confirmed 08/29/17] calcium carbonate 600 mg(1,500 mg)-vitamin D3 800 unit chewable tablet 1 tab PO BID 08/29/17 [History Confirmed 08/29/17] PFSH Medical History Osteopenia (Chronic) Arthritis (Chronic) Back problem (Chronic) Pancreatitis (Acute) Diabetes type 1, controlled (Chronic) Osteoarthritis (Chronic) 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 (Acute) Diabetes type 1, controlled (Acute) Carpal tunnel syndrome (Acute) Gallstones (Acute) History of carpal tunnel release (Acute) Skin cancer (Acute) Surgical History H/O: hysterectomy (Acute) History of cholecystectomy (Acute) History of tonsillectomy (Acute) History of total knee arthroplasty (Acute) Family History Mother Asthma Liver disease Father CVA (cerebral vascular accident) Social History Smoking Status: Never smoker second hand exposure: No alcohol intake: never substance use type: does not use what type of physical activity do you participate in: walking frequency: daily HPI 3 M FU: Chief Complaint: follow-up Details: TASNEEM BATISTA, is a 72 F who presents to the office today for a follow-up of her hyperlipidemia and osteopenia. She has a past medical history which is significant for that of type 1 diabetes, hyperlipidemia, osteoarthritis, spinal stenosis (seen Dr. Pelletier pain management), hypertension, and osteopenia. The patient states that she has been doing well since her previous office visit. She states that she has seen endocrinology and that her most recent A1c was 6.1. She denies any episodes of hypoglycemia as taking her insulins appropriately. She does have a referral to podiatry, but has not scheduled that appointment yet. She is up-to-date on her yearly ophthalmology exam. She is tolerating her statin therapy well and states that she has started her calcium and vitamin D supplementation for osteopenia, however she is only taking it once daily. She denies any recent fractures or falls. She states that she is up-to-date on her influenza and pneumonia vaccine. The patient does state she has noted some cold like symptoms that has began over the last couple days which includes nasal congestion, she states that she is going to try her nondrowsy antihistamine to see if this helps with her symptoms. She has no other acute complaints at this time and otherwise denies any fever, chills, nausea, vomiting, shortness of breath, chest pain or pressure, syncope or presyncopal episodes. ROS Const Constitutional: No weight change, body ache, chills, fatigue, sleep problems, fever(s), change in appetite, snoring, weakness, frequent falls, headache(s) or excessive sweating Eyes Eyes: No change in vision, eye pain, light sensitivity or blurry vision ENT ENT: Positive for nasal congestion; no headache(s), abnormal hearing, ear pain, tinnitus, sore throat or neck pain Resp Respiratory: No snoring, cough, shortness of breath or wheezing Cardio Cardiology: No excessive sweating, chest pain at rest, chest pain with exertion, shortness of breath, dyspnea on exertion, palpitations, orthopnea or lightheadedness Gastro GI: No abdominal pain, change in bowel habits, constipation, diarrhea, vomiting, nausea/dyspepsia or cramping Musc Musculoskeletal: No neck pain, abnormal walking, joint pain, back pain, limited range of motion, numbness, tingling or muscle weakness Skin Skin: No redness, dry skin, itching, lesions, wounds or rash Neuro Neurology: No weakness, frequent falls, headache(s), abnormal hearing, abnormal walking, numbness, tingling, abnormal speech, dizziness or memory loss Psych Psychiatric: No change in appetite, No memory loss, No anxiety, No depression, No Thoughts of harming yourself/Others Endo Endocrine: No fatigue, excessive sweating, cold intolerance, increased thirst/drinking, heat intolerance, flushing or increased hunger Aller/Imm Allergy/Immunologic: No wheezing, itchy eyes, hives or seasonal allergy symptoms Oliver/Lymp Hematologic/Lymphatic: No easy bleeding, easy bruising or enlarged lymph nodes Exam Const General: cooperative, comfortable, no acute distress Nutritional Appearance: average body habitus, well nourished Orientation: alert, oriented x3 Limitations: mental status not altered [facility] Head: normal to inspection Ears: hearing grossly normal bilaterally, TM abnormal with fluid behind the TM (Clear) bilaterally Nose: external nose normal Face and sinus: normal facial exam Mouth: oral mucosae normal Throat: posterior oropharynx normal Eyes General: appearance normal, both eyes and all related structures Resp Effort AND Inspection: normal respiratory effort, able to speak in complete sentences, normal respiratory pattern, symmetric chest movement, no audible wheezes, no cough Auscultation: Bilateral: Clear to Auscultation Cardio Palpation: normal PMI Rate: regular rate Heart Sounds: S1 normal, S2 normal, normal S1 and S2, no click, no gallops, no murmurs, no rubs GI Inspection: normal to inspection Auscultation: normal bowel sounds, no hyperactive bowel sounds, no hypoactive bowel sounds Palpation: soft, no hepatosplenomegaly Musc Musculoskeletal: No joint tenderness, decreased ROM or muscle weakness Skin General: no rashes or lesions noted, elasticity normal, turgor normal Lesions: no lesions Rashes: no rashes Neuro General: alert, awake, oriented x3, CN's II-XI intact bilaterally Speech: speech normal Gait: normal gait Motor: muscle tone normal throughout Extrem General: normal to inspection, normal gait, no edema, no pedal edema Psych Appearance: grossly normal Mental Status: mental status grossly normal Affect: normal affect Attitude: cooperative Thought Process: normal Assessment AND Plan 1. Osteopenia M85.80 Plan No recent fractures or falls. Discussed with patient the importance of taking her calcium 600 vitamin D 800 combination pill twice a day for the appropriate dosage. Patient verbalized understanding. Regarding the patient's nasal congestion, informed patient that it would be okay for her to restart her Zyrtec. 2. 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 E10.69; E78.5 Continues on lipitor. No side effects. Lipids within goal range Plan She will continue with her current statin therapy. She will continue with dietary changes lifestyle modification, and rest factor reduction. 3. Controlled diabetes mellitus type 1 without complications E10.9 A1c 6.1 Continues on MDI without any issues. Sl low BG in am with occ BG in the 50 range. Will continue to monitor at bedtime and consume snack as needed. Plan Deferred to endocrinology, well-controlled at this time, no signs of hypoglycemia. Going to follow-up for her podiatry exam and currently up-to-date on her annual eye exam. Patient is requesting to follow-up with our office on a six-month basis. Maria Eon disclaimer Plan Detail Other Medications New: Follow Up 6 Months Coding Level of Care Code Off vis,est,level 3 Diagnoses Osteopenia M85.80 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 E10.69; E78.5 Controlled diabetes mellitus type 1 without complications E10.9 08/29/17 0950 <Electronically signed by Alina GALLO> Date Alina GALLO Cosigner Signature: Date (if applicable) CC: ALLERGIES ALLERGIES DATE TYPE / CODE NAME / CODE REACTION SEVERITY SOURCE Drug Sulfa Unknown SV [place] 8 Allergy/126442550( (Sulfonamide Community SNOMED CT) Antibiotics)/F00 Hospital 4828841(RXNORM) Repository Drug codeine/T3786374 Unknown SV [place] 8 Allergy/461336672( 50(RXNORM) [facility] SNOMED CT) Hospital Repository Miscellaneous penicillin Unknown [place] 8 [facility]10627228[facility] DRUG CONTRAST DYE OTHER: SEE James Neal 1 INGREDI/887583050( Clinic Main SNOMED CT) [place] Repository Drug PENICILLINS ZACHARY Neal 9 Class/704520905(SN Clinic Main OMED CT) [place] Repository Drug SULFA RASH Arpin 9 Class/068891787(SN (SULFONAMIDE Clinic Main OMED CT) ANTIBIOTICS) [place] Repository DRUG/122916631(SNO HYDROCODONE-ACET INTOLERANCE [place] [address]) AMINOPHEN [facility] Repository ENCOUNTERS ENCOUNTERS ADMIT/DISCHARGE ACCOUNT ADMITTING ENCOUNTER LOCATION SOURCE NUMBER CLASS 08/06/2018/08/06/20 [id number] Ambulatory BMSBuilding:Lance Corea 18 MS.ROCIO [facility] Repository 08/01/2018 [id number] [facility] ing:MTLAB Repository 06/06/2018 [id number] [facility] ing:OPBI Repository 05/07/2018/05/07/20 [id number] Ambulatory BMSBuilding:Lance Core[place] 18 MSSAMIRA [facility] Repository 05/07/2018/05/07/20 [id number] [facility] BMS[facility] 05[facility]07[facility]2018 [id number] [facility] ing:MTLAB Repository 05/01/2018/05/02/20 [id number] Ambulatory [address] Repository 04/30/2018 [id number] [facility] ing:HPRAD Repository 04/30/2018/04/30/20 [id number] Ambulatory BMSBuilding:Lance Corae 18 MS.AYANNA [facility] Repository 04/17/2018/04/19/20 [id number] Ambulatory [address] Repository 04/15/2018/04/16/20 [id number] Ambulatory [address] Repository 04/10/2018/04/11/20 [id number] Ambulatory [address] Repository 04/08/2018/04/09/20 [id number] Ambulatory [address] Repository 04/04/2018/04/08/20 [id number] Ambulatory [address] Repository 04/02/2018/04/03/20 [id number] Ambulatory [address] Repository 03/27/2018/03/28/20 [id number] Ambulatory [address] Repository 03/25/2018/03/26/20 [id number] Ambulatory [address] Repository 03/22/2018/03/25/20 [id number] Ambulatory [address] Repository 03/15/2018/03/19/20 [id number] Ambulatory [address] Repository 03/08/2018 [id number] Ambulatory BMSBuilding:B [place] Repository 02/26/2018 [id number] [facility] ing:MRI Repository 02/18/2018 [id number] [facility] ing:RAD Repository 02/06/2018/02/07/20 [id number] Ambulatory BMSBuilding:B [place] 18 MS.[facility] Repository 02/05/2018/02/06/20 [id number] Ambulatory BMSBuilding:B [place] 18 MS.[facility] Repository 02/01/2018 [id number] [facility] Hospital ing:MTLAB Repository 11/05/2017/11/06/19 [id number] Ambulatory BMSBuilding:B [place] 18 MS.[facility] Repository 10/26/2017 [id number] [facility] Hospital ing:MTLAB Repository 08/29/2017/08/29/20 [id number] Ambulatory BMSBuilding:B [place] 17 MS.[facility] Repository 08/21/2017 [id number] Ambulatory [address] [place] [address] Repository 08/07/2017/08/07/20 [id number] Ambulatory BMSBuilding:[place] 17 MS.[facility] Repository PAYERS PAYERS ENCOUNTER GUARANTOR PAYER SUBSCRIBER SOURCE 08/06/2018 TASNEEM L Primary TASNEEM L [place] [id number] ALINA Insurance:MEDICARE [place]UM[place]OB: [place] PART A BPolic [id number] Hospital 21972Njp: (234) Number: Repository [phone] (HP) [id number] Date:2018-05-07 08/06/2018 Secondary TASNEEM L [place] Insurance:ANTHEMPolic HUMMELDOB: [facility] Number: [id number] [id number] Repository Date:1680-20-81[id number] [place] [address] 67897SV: 08/06/2018 Tertiary NOT GIVENUNK [place] Insurance:SELF PAY [facility] Number: Effective Repository Date:2018-08-06 08/01/2018 TASNEEM L Primary TASNEEM L [place] [id number] ALINA Insurance:MEDICARE HUMMELDOB: [place] PART A [facility] [id number] [id number]: (234) Number: Repository [phone] ) [id number] Date:2018-08-01 08/01/2018 Secondary TASNEEM L [place] Insurance:ANTHEMPolic HUMMELDOB: Community y Number: [id number] [id number] Repository Date:0403-73-41[address], [place] [address]DO: 08/01/2018 Tertiary NOT GIVENUNK [place] Insurance:SELF PAY [facility] Number: Effective Repository Date:2018-08-01 06/06/2018 TASNEEM L Primary TASNEEM L [place] [id number] ALINA Insurance:MEDICARE HUMMELDOB: [place] PART A [facility] [id number] Hospital 66291Uni: (234) Number: Repository [phone] () [id number] Date:2018-05-08 06/06/2018 Secondary TASNEEM L [place] Insurance:ANTHEMPolic HUMMELDOB: Community y Number: [id number] Hospital [id number] Repository Date:9059-56-52[id number] [place] [address] 62196VX: 06/06/2018 Tertiary NOT GIVENUNK [place] Insurance:SELF PAY [facility] Number: Effective Repository Date:2018-05-08 05/07/2018 TASNEEM L Primary TASNEEM L [place] [id number] ALINA Insurance:MEDICARE HUMMELDOB: [place] PART A [facility] [id number] Hospital 05406Wsy: (234) Number: Repository [phone] () [id number] Date:2018-02-27 05/07/2018 Secondary TASNEEM L [place] Insurance:ANTHEMPolic HUMMELDOB: Community y Number: [id number] [facility] Medical [id number] Repository Date:1335-17-04MX [address] [place] [address] 53046TZ: 05/07/2018 Tertiary NOT GIVENUNK [place] Insurance:SELF PAY [facility] Number: Effective Repository Date:2018-05-07 05/07/2018 TASNEEM L Primary TASNEEM L [place] [id number] ALINA Insurance:MEDICARE HUMMELDOB: [place] PART A [facility] [id number] [id number]: (234) Number: Repository [phone] () [id number] Date:2018-02-12 05/07/2018 Secondary TASNEEM L [place] Insurance:ANTHEMPolic HUMMELDOB: Community y Number: [id number] Regional Medical [id number] Repository Date:7554-58-50GY [address] [place] [address] 48655UQ: 05/07/2018 Tertiary NOT GIVENUNK [place] Insurance:SELF PAY [facility] Number: Effective Repository Date:2018-05-07 05/07/2018 TASNEEM L Primary TASNEEM L [place] [id number] ALINA Insurance:MEDICARE HUMMELDOB: [place] PART A [facility] [id number] [id number]: (234) Number: Repository [phone] () [id number] Date:2018-05-03 05/07/2018 Secondary TASNEEM L [place] Insurance:ANTHEMPolic HUMMELDOB: Community y Number: [id number] Regional Medical [id number] Repository Date:0983-54-53TB [address] [place] [address] 05387KL: 05/07/2018 Tertiary NOT GIVENUNK [place] Insurance:SELF PAY [facility] Number: Effective Repository Date:2018-05-03 04/30/2018 TASNEEM L Primary TASNEEM L [place] [id number] ALINA Insurance:MEDICARE HUMMELDOB: [place] PART A [facility] [id number] [place] [id number]: (234) Number: Repository [phone] () [id number] Date:2018-04-30 04/30/2018 Secondary TASNEEM L [place] Insurance:ANTHEMPolic HUMMELDOB: Community y Number: [id number] Regional Medical [id number] Repository Date:1278-25-12MM [address] [place] [address] 22448AH: 04/30/2018 Tertiary NOT GIVENUNK [place] Insurance:SELF PAY [facility] Number: Effective Repository Date:2018-04-30 04/30/2018 TASNEEM L Primary TASNEEM L [place] [id number] ALINA Insurance:MEDICARE HUMMELDOB: [place] PART A [facility] [id number] [place] [address]Tel: (234) Number: Repository [phone] () [id number] Date:2018-02-27 04/30/2018 Secondary TASNEEM L [place] Insurance:ANTHEMPolic HUMMELDOB: Community y Number: [id number] Regional Medical [id number] Repository Date:3920-50-48[address], [place] [address]WF: 04/30/2018 Tertiary NOT GIVENUNK [place] Insurance:SELF PAY [facility] Number: Effective Repository Date:2018-04-30 03/08/2018 TASNEEM L Primary TASNEEM L [place] [id number] [place] Insurance:MEDICARE HUMMELDOB: [place] PART A [facility] [id number] Hospital 14742Gds: (234) Number: Repository [phone] () [id number] Date:2018-02-16 03/08/2018 Secondary TASNEEM L [place] Insurance:ANTHEMPolic HUMMELDOB: Community y Number: [id number] Regional Medical [id number] Repository Date:7443-62-32WK [address] [place] [address] 25790VM: 03/08/2018 Tertiary NOT GIVENUNK [place] Insurance:SELF PAY [facility] Number: Effective Repository Date:2018-02-16 02/26/2018 TASNEEM L Primary TASNEEM L [place] [id number] ALINA Insurance:MEDICARE HUMMELDOB: [place] PART [place] [facility] [id number] Hospital 25061Nhq: (234) Number: Repository [phone] () [id number] Date:2018-02-19 02/26/2018 Secondary TASNEEM L [place] Insurance:ANTHEMPolic HUMMELDOB: Community y Number: [id number] [facility] Medical [id number] Repository Date:0981-96-78[address] [place] [address]8832XS: 02/26/2018 Tertiary NOT GIVENUNK [place] Insurance:SELF PAY [facility] Number: Effective Repository Date:2018-02-19 02/18/2018 TASNEEM L Primary TASNEEM L [place] [id number] [place]INA Insurance:MEDICARE HUMMELDOB: [place] PART [place] [facility] [id number] Hospital 93244Pdb: (234) Number: Repository [phone] () [id number] Date:2018-02-18 02/18/2018 Secondary TASNEEM L [place] Insurance:ANTHEMPolic HUMMELDOB: Community y Number: [id number] Regional Medical [id number] Repository Date:6944-87-30PX [address] [place] [address] 30021KU: 02/18/2018 Tertiary NOT GIVENUNK [place] Insurance:SELF PAY [facility] Number: Effective Repository Date:2018-02-18 02/06/2018 TASNEEM L Primary TASNEEM L [place] [id number] [place] Insurance:MEDICARE HUMMELDOB: [place] PART [place] [facility] [id number] [id number]: (234) Number: Repository [phone] () [id number] Date:2017-08-29 02/06/2018 Secondary TASNEEM L [place] Insurance:ANTHEMPolic HUMMELDOB: Community y Number: [id number] Regional Medical [id number] Repository Date:9824-47-67JY [address] [place] [address] 93208UI: 02/06/2018 Tertiary NOT GIVENUNK [place] Insurance:SELF PAY [facility] Number: Effective Repository Date:2018-02-14 02/05/2018 TASNEEM L Primary TASNEEM L [place] [id number] [place] Insurance:MEDICARE HUMMELDOB: [place] PART [place] [facility] [id number] Hospital 13908Rfb: (234) Number: Repository [phone] () [id number] Date:2017-11-05 02/05/2018 Secondary TASNEEM L [place] Insurance:ANTHEMPolic HUMMELDOB: Community y Number: [id number] Regional Medical [id number] Repository Date:6401-07-28CX [address] [place] [address] 35012WP: 02/05/2018 Tertiary NOT GIVENUNK [place] Insurance:SELF PAY [facility] Number: Effective Repository Date:2018-02-14 02/01/2018 TASNEEM L Primary TASNEEM L [place] [id number] [place] Insurance:MEDICARE HUMMELDOB: [place] PART [place] [facility] [id number] Hospital [address]31[address]Gnt: (234) Number: Repository [phone] () [id number] Date:2018-02-01 02/01/2018 Secondary TASNEEM L [place] Insurance:ANTHEMPolic HUMMELDOB: Community y Number: [id number] Regional Medical [id number] Repository Date:8571-57-76[address], [place] [address]FS: 02/01/2018 Tertiary NOT GIVENUNK [place] Insurance:SELF PAY [facility] Number: Effective Repository Date:2018-02-01 11/05/2017 TASNEEM L Primary TASNEEM L [place] [id number] [place] Insurance:MEDICARE HUMMELDOB: [place] [facility] [id number] Hospital [address]Pmz: (234) Number: Repository [phone] () [id number] Date:2017-08-07 11/05/2017 Secondary TASNEEM L [place] Insurance:ANTHEMPolic HUMMELDOB: Community y Number: [id number] Regional Medical [id number] Repository Date:4835-44-70HO [address] [place] [address] 82[address]EN: 11/05/2017 Tertiary NOT GIVENUNK [place] Insurance:SELF PAY [facility] Number: Effective Repository Date:2017-08-07 10/26/2017 TASNEEM L Primary TASNEEM L [place] [id number] [place] Insurance:MEDICARE HUMMELDOB: [place] PART [place] [facility] [id number] Hospital [address]Amy: (234) Number: Repository [phone] () [id number] Date:2017-10-26 10/26/2017 Secondary TASNEEM L [place] Insurance:ANTHEMPolic HUMMELDOB: Community y Number: [id number] Hospital [id number] Repository Date:9252-31-75QA [address], [place] [address]JF: 10/26/2017 Tertiary NOT GIVENUNK [place] Insurance:SELF PAY [facility] Number: Effective Repository Date:2017-10-26 08/29/2017 TASNEEM L Primary TASNEEM L [place] [id number] [place] Insurance:MEDICARE HUMMELDOB: [place] PART [place] [facility] [id number] Hospital 277[address]Ntr: (234) Number: Repository [phone] () [id number] Date:2017-08-04 08/29/2017 Secondary TASNEEM L [place] Insurance:ANTHEMPolic HUMMELDOB: Community y Number: [id number] Regional Medical [id number] Repository Date:9030-57-10[address], [place] [address]VS: 08/29/2017 Tertiary NOT GIVENUNK [place] Insurance:SELF PAY [facility] Number: Effective Repository Date:2017-08-04 08/21/2017 TASNEEM Primary TASNEEM [employer] HUMMELDOB: Insurance:MedicarePol HUMMELDOB: Hospitals icy Number: [id number] Repository [place] [id number] [place] [facility], Date:Plan Name:[place], [place] [address]Aua: [facility] [address]Peb: () () 08/21/2017 Secondary TASNEEM [employer] Insurance:MedicarePol HUMMELDOB: [facility] icy Number: [id number] Repository [id number] [place] Date:Plan Name:[facility] [address]Xxs: (HP) 08/21/2017 Tertiary TASNEEM [employer] Insurance:AnthemPolic HUMMELDOB: Hospitals y Number: [id number] Repository [id number] 5 [place] Date:Plan Name:[place], [place] [address]Htb: (HP) 08/07/2017 TASNEEM L Primary TASNEEM L [place] [id number] [place] Insurance:MEDICARE HUMMELDOB: [place] PART [place] olic [id number] Hospital 136[address]Lbl: (234) Number: Repository [phone] () [id number] Date:2017-08-04 08/07/2017 Secondary TASNEEM L [place] Insurance:ANTHEMPolic HUMMELDOB: Community y Number: [id number] Hospital [id number] Repository Date:1054-21-53PS [address], [place] [address]SR: 08/07/2017 Tertiary NOT GIVENUNK [place] Insurance:SELF PAY [facility] Number: Effective Repository Date:2017-08-07
== END ==
PROVIDERS: Family Provider Internal Medicine; PCP Internal Medicine; Referring Provider Nurse Practitioner; Visit Provider Nurse Practitioner
DX: E10.9 Type 1 diabetes mellitus without complications (principal); M19.90 Unspecified osteoarthritis, unspecified site
CPT/HCPCS: 36415; 80053; 82043; 82570; 83036

== ENCOUNTER → 2018-10-07 10:15 | Outpatient (CLI) | payer MEDICARE, OTHER, SELFPAY ==
[2018-10-07 14:57] VITALS: BMI 24.4
[2018-10-08 10:23] LABS: Bacteria 0 SEEN /hpf (None Seen); Mucous, Urine 0 SEEN /hpf (<or=2+); Red Blood Cells-Urine 0 SEEN /hpf (0-5)
[2018-10-08 10:27] LABS: Color, Urine Yellow (Yellow); Glucose, Dipstick Normal (Normal); Ketone-Dipstick Negative (Negative); Leukocyte Esterase-Dipstick 25 /ul (Negative); Nitrite-Dipstick Negative (Negative); Occult Blood-Urine Negative /ul (Negative); Protein-Dipstick 30 mg/dl (Negative); Urine Bilirubin Dipstick Negative (Negative); Urine Clarity Sl. Cloudy (Clear); Urine Urobilinogen Normal (Normal)
[2018-10-08 10:37] LABS: Squamous Epithelial Cells - UA 0-5 SEEN /hpf (5-10); White Blood Cells 0-5 SEEN /hpf (0-5)
== END ==
PROVIDERS: Family Provider Internal Medicine; PCP Internal Medicine; Referring Provider Internal Medicine; Visit Provider Internal Medicine
DX: N39.0 Urinary tract infection, site not specified (principal); R10.2 Pelvic and perineal pain
CPT/HCPCS: 81001; 87086; 87088

== ENCOUNTER → 2018-10-28 08:01 | Outpatient (CLI) | payer MEDICARE, OTHER, SELFPAY ==
[2018-10-07 14:57] VITALS: BMI 24.4
[2018-10-28 10:16] LABS: ALB/GLOB Ratio 1.2 RATIO (0.9-2.4); AST(SGOT) 57 U/L (15-37); Alanine Aminotransfer ALT/SGPT 80 U/L (13-56); Albumin, Serum 3.7 g/dL (3.2-5.0); Alkaline Phosphatase 48 U/L (45-117); Anion Gap 6 (5-15); BUN 34 mg/dL (7-18); BUN/Creat Ratio 38.2 RATIO (10-20); Calcium,Total 8.6 mg/dL (8.5-10.1); Chloride 108 mmol/L (98-107); Creatinine, Serum 0.89 mg/dL (0.55-1.02); EST Glomerular Filtration Rate 66 mL/min (>60); Est Glom Filt Rate - Afr Amer 80 mL/min (>60); Globulin 3.1 g/dL (2.2-4.2); Glucose 114 mg/dL (74-106); Potassium 4.1 mmol/L (3.5-5.1); Protein, Total 6.8 g/dL (6.4-8.2); Sodium Level 139 mmol/L (136-145)
[2018-10-28 10:19] LABS: Hemoglobin A1c 6.8 % (4.2-6.3); Vitamin D,25 Hydroxy 23.5 ng/mL (29.95-100.01)
== END ==
PROVIDERS: Family Provider Internal Medicine; PCP Internal Medicine; Referring Provider Nurse Practitioner; Visit Provider Nurse Practitioner
DX: E10.9 Type 1 diabetes mellitus without complications (principal); E55.9 Vitamin D deficiency, unspecified
CPT/HCPCS: 36415; 80053; 82306; 83036

== ENCOUNTER → 2018-11-25 09:09 | Outpatient (CLI) | payer MEDICARE, OTHER, SELFPAY ==
[2018-11-05 09:17] VITALS: BMI 24.4
[2018-11-25 10:58] LABS: ALB/GLOB Ratio 1.2 RATIO (0.9-2.4); AST(SGOT) 48 U/L (15-37); Alanine Aminotransfer ALT/SGPT 68 U/L (13-56); Albumin, Serum 3.5 g/dL (3.2-5.0); Alkaline Phosphatase 44 U/L (45-117); Anion Gap 5 (5-15); BUN 28 mg/dL (7-18); BUN/Creat Ratio 36.3 RATIO (10-20); Calcium,Total 8.6 mg/dL (8.5-10.1); Chloride 108 mmol/L (98-107); Creatinine, Serum 0.77 mg/dL (0.55-1.02); EST Glomerular Filtration Rate 78 mL/min (>60); Est Glom Filt Rate - Afr Amer 94 mL/min (>60); Glucose 135 mg/dL (74-106); Potassium 4.1 mmol/L (3.5-5.1); Protein, Total 6.5 g/dL (6.4-8.2); Sodium Level 140 mmol/L (136-145)
== END ==
PROVIDERS: Family Provider Internal Medicine; PCP Internal Medicine; Referring Provider Internal Medicine; Visit Provider Internal Medicine
DX: R74.8 Abnormal levels of other serum enzymes (principal)
CPT/HCPCS: 36415; 80053

== ENCOUNTER → 2019-05-15 08:10 | Outpatient (CLI) | payer MEDICARE, OTHER, SELFPAY ==
[2019-04-08 10:10] VITALS: BMI 24.4
[2019-05-15 10:43] LABS: ALB/GLOB Ratio 1.2 RATIO (0.9-2.4); AST(SGOT) 30 U/L (15-37); Alanine Aminotransfer ALT/SGPT 30 U/L (13-56); Albumin, Serum 3.5 g/dL (3.2-5.0); Alkaline Phosphatase 43 U/L (45-117); Anion Gap 6 (5-15); BUN 37 mg/dL (7-18); BUN/Creat Ratio 43.2 RATIO (10-20); Calcium,Total 8.8 mg/dL (8.5-10.1); Chloride 112 mmol/L (98-107); Cholesterol 188 mg/dL (200); Creatinine, Serum 0.86 mg/dL (0.55-1.02); EST Glomerular Filtration Rate 69 mL/min (>60); Est Glom Filt Rate - Afr Amer 83 mL/min (>60); Glucose 51 mg/dL (74-106); High Density Lipoprotein 74 mg/dL; Potassium 4.2 mmol/L (3.5-5.1); Protein, Total 6.5 g/dL (6.4-8.2); Sodium Level 146 mmol/L (136-145); Triglycerides 40 mg/dL; Very Low Density Lipoprotein 8 mg/dL (5-40)
[2019-05-15 13:14] LABS: Microalbumin,Random Urine < 5.0 mg/L (NO RANGE EST.)
== END ==
PROVIDERS: Family Provider Internal Medicine; PCP Internal Medicine; Referring Provider Nurse Practitioner; Visit Provider Nurse Practitioner
DX: E11.9 Type 2 diabetes mellitus without complications (principal)
CPT/HCPCS: 36415; 80053; 80061; 82043

== ENCOUNTER → 2019-07-15 11:46 | Outpatient (CLI) | payer MEDICARE, OTHER, SELFPAY ==
[2019-04-08 10:10] VITALS: BMI 24.4
[2019-07-07 10:49] VITALS: BMI 24.4
--- NOTE | 2019-07-15 11:47 | BI_ITS ---
MAMMOGRAPHY - BILATERAL SCREENING REASON FOR EXAM: Female, 74 years old. Routine annual screening examination. PERTINENT HISTORY: Non-contributory. Remote left stereotactic breast biopsy. TECHNIQUE: Digital bilateral breast meme (3D mammographic acquisition) in the CC and MLO projections. 2-D mediolateral oblique (MLO) and craniocaudad (CC) views of both breasts were obtained. CAD: Full Field Digital Mammography with Computer Added Detection was performed. COMPARISON: Comparison is made with prior examination dated June 06, 2018 and June 05, 2017. FINDINGS: Breast Composition: The breasts are heterogeneously dense, which may obscure small masses. There are no dominant masses or suspicious calcifications. No other significant abnormalities are identified. There has been no significant change since the prior study. BI/SCREEN MAMM (CAD) W/MEME BILAT IMPRESSION: Stable bilateral screening mammogram. Yearly follow-up mammogram recommended. (A) ASSESSMENT CATEGORY: BIRADS Category 1: Negative. A letter regarding these results will be sent to the patient by the facility within 30 days. Approximately 10% of breast cancers are not detected by mammography. A normal mammogram should not delay biopsy of a clinically suspicious abnormality. [id number] Electronically Signed: Ran Parks, at 14:11 EST , Service support ,
== END ==
PROVIDERS: Family Provider Internal Medicine; PCP Internal Medicine; Referring Provider Internal Medicine; Visit Provider Internal Medicine
DX: Z12.31 Encounter for screening mammogram for malignant neoplasm of breast (principal)
CPT/HCPCS: 77063; 77067

== ENCOUNTER → 2019-08-11 08:43 | Outpatient (CLI) | payer MEDICARE, OTHER, SELFPAY ==
[2019-07-07 10:49] VITALS: BMI 24.4
[2019-08-11 10:37] LABS: Hemoglobin A1c 6.6 % (4.2-6.3)
[2019-08-11 10:54] LABS: ALB/GLOB Ratio 1.1 RATIO (0.9-2.4); AST(SGOT) 45 U/L (15-37); Alanine Aminotransfer ALT/SGPT 55 U/L (13-56); Albumin, Serum 3.5 g/dL (3.2-5.0); Alkaline Phosphatase 41 U/L (45-117); Anion Gap 3 (5-15); BUN 33 mg/dL (7-18); BUN/Creat Ratio 30.8 RATIO (10-20); Chloride 108 mmol/L (98-107); Cholesterol 199 mg/dL (200); Creatinine, Serum 1.07 mg/dL (0.55-1.02); EST Glomerular Filtration Rate 53 mL/min (>60); Est Glom Filt Rate - Afr Amer 64 mL/min (>60); Globulin 3.1 g/dL (2.2-4.2); Glucose 112 mg/dL (74-106); High Density Lipoprotein 72 mg/dL; Potassium 4.1 mmol/L (3.5-5.1); Protein, Total 6.6 g/dL (6.4-8.2); Sodium Level 141 mmol/L (136-145); Triglycerides 69 mg/dL; Very Low Density Lipoprotein 14 mg/dL (5-40)
== END ==
PROVIDERS: Family Provider Internal Medicine; PCP Internal Medicine; Referring Provider Nurse Practitioner; Visit Provider Nurse Practitioner
DX: E10.9 Type 1 diabetes mellitus without complications (principal); R74.8 Abnormal levels of other serum enzymes
CPT/HCPCS: 36415; 80053; 80061; 83036

== ENCOUNTER → 2020-03-16 11:43 | Outpatient (CLI) | payer MEDICARE, OTHER, SELFPAY ==
[2020-03-16 11:23] VITALS: BMI 24.4
[2020-03-16 15:12] LABS: Absolute Lymphocyte Count 1.47 X10^3/uL (0.83-4.51); Absolute Neutrophil Count 3.4 X10^3/uL (2.0-7.7); Basophil# 0.05 X10^3/uL; Basophil% 0.9 % (0-1); Eosinophil# 0.11 X10^3/uL; Hematocrit 41.4 % (37-47); Hemoglobin 13.1 g/dL (12.0-15.0); Lymphocyte # 1.47 X10^3/ul (4.0); Lymphocyte % 26.6 % (19-41); Mean Corp Hgb Conc 31.6 g/dL (32-36); Mean Corpuscular Hgb 29.6 pg (27.0-32.0); Mean Corpuscular Volume 93.7 fL (81-99); NRBC Flagged by Analyzer 0 % (0-5); Neutrophil # 3.38 X10^3/uL (2.7-7.7); Neutrophil % 61.1 % (47-70); Platelet Count 182 K/mm3 (150-450); RBC Distribution Width CV 15.1 % (11.6-14.6); RBC Distribution Width SD 52.1 fl (35.1-43.9); Red Blood Count 4.42 M/mm3 (4.2-5.4); White Blood Count 5.5 K/mm3 (4.4-11.0)
[2020-03-16 15:34] LABS: Vitamin D,25 Hydroxy 59.9 ng/mL
[2020-03-16 15:54] LABS: Anion Gap 7 (5-15); BUN 38 mg/dL (7-18); BUN/Creat Ratio 39.4 RATIO (10-20); Calcium,Total 9.2 mg/dL (8.5-10.1); Chloride 106 mmol/L (98-107); Creatinine, Serum 0.96 mg/dL (0.55-1.02); EST Glomerular Filtration Rate 60 mL/min (>60); Est Glom Filt Rate - Afr Amer 72 mL/min (>60); Glucose 134 mg/dL (74-106); Potassium 4.3 mmol/L (3.5-5.1); Sodium Level 138 mmol/L (136-145)
== END ==
PROVIDERS: PCP Internal Medicine; Referring Provider Internal Medicine; Visit Provider Internal Medicine
DX: E10.22 Type 1 diabetes mellitus with diabetic chronic kidney disease (principal); N18.3 Chronic kidney disease, stage 3 (moderate); M19.90 Unspecified osteoarthritis, unspecified site; M85.80 Other specified disorders of bone density and structure, unspecified site
CPT/HCPCS: 36415; 80048; 82306; 85025

== ENCOUNTER → 2020-03-23 10:04 | Outpatient (CLI) | payer MEDICARE, OTHER, SELFPAY ==
[2020-03-16 11:23] VITALS: BMI 24.4
[2020-03-22 10:23] VITALS: BMI 24.4
--- NOTE | 2020-03-23 10:06 | BD_ITS ---
STUDY: DUAL ENERGY X-RAY ABSORPTIOMETRY / DXA REASON FOR EXAM: Female, 75 years old. 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 COMPARISON: Comparison is made with prior examination dated 06-05-17. FINDINGS: Lumbar Spine (L1-L4): g/cm2 (2.077) / T-score (7.3) / Z-score (9.1) Findings are suggestive of normal bone density with a low fracture risk. Left Femur Total: g/cm2 (0.843) / T-score (-1.3) / Z-score (0.5) Left Femoral Neck: g/cm2 (0.796) / T-score (-1.7) / Z-score (0.2) Right Femur Total: g/cm2 (0.830) / T-score (-1.4) / Z-score (0.4) Right Femoral Neck: g/cm2 (0.841) / T-score (-1.4) / Z-score (0.5) The T-Scores on the most recent prior examination were: Lumbar Spine (L1-L4): There has been improvement of bone density since the previous examination. Left Femur Total: which represents a worsening of 5.3%. Right Femur Total: which represents a worsening of 6.2%. BD/Dexa Bone Density Study IMPRESSION: The patient is considered osteopenic as outlined below according to World Kin Organization (WHO) criteria with a moderate fracture risk. There has been worsening of bone density since the previous examination. Reference Information: The T-score is the number of standard deviations above or below the standard which is normal for young adults at their peak bone mineral density. The World Health Organization (WHO) interprets the T-scores as follows: Above -1 Normal bone density Between -1 and -2.5 Osteopenia Equal to / or below -2.5 Osteoporosis As a practical clinical guideline, osteopenia may be graded as follows: Mild -1 through -1.5 Moderate -1.6 through -2.0 Severe -2.1 through -2.4 The Z-score is the number of standard deviations above or below age-matched controls. A Z-score of less than -1.5 would be considered abnormal. References: 1. NIH Osteoporosis and Related Bone Diseases http://www.osteo.org 2. International Society for Clinical Densitometry http://www.iscd.org 3. National Osteoporosis Foundation http://www.nof.org Electronically Signed: Ran Parks, at 10:40 EDT , Service support ,
== END ==
PROVIDERS: PCP Internal Medicine; Referring Provider Internal Medicine; Visit Provider Internal Medicine
DX: Z78.0 Asymptomatic menopausal state (principal)
CPT/HCPCS: 77080

== ENCOUNTER → 2020-06-24 12:13 | Outpatient (CLI) | payer MEDICARE, OTHER, SELFPAY ==
[2020-06-24 11:34] VITALS: BMI 24.2
[2020-06-24 15:31] LABS: Absolute Lymphocyte Count 1.38 X10^3/uL (0.83-4.51); Basophil# 0.04 X10^3/uL; Basophil% 0.8 % (0-1); Eosinophil# 0.07 X10^3/uL; Eosinophils% 1.4 % (0-5); Hematocrit 42.5 % (37-47); Hemoglobin 13.9 g/dL (12.0-15.0); Lymphocyte # 1.38 X10^3/ul (4.0); Lymphocyte % 27.8 % (19-41); Mean Corp Hgb Conc 32.7 g/dL (32-36); Mean Corpuscular Hgb 29.8 pg (27.0-32.0); Mean Platelet Vol. 11.5 fl (6.2-12.0); Monocyte# 0.45 X10^3/uL; Monocyte% 9.1 % (0-10); NRBC Flagged by Analyzer 0 % (0-5); Neutrophil # 3.01 X10^3/uL (2.7-7.7); Neutrophil % 60.7 % (47-70); Platelet Count 205 K/mm3 (150-450); RBC Distribution Width CV 14.8 % (11.6-14.6); RBC Distribution Width SD 49.2 fl (35.1-43.9); Red Blood Count 4.67 M/mm3 (4.2-5.4)
[2020-06-24 15:45] LABS: Vitamin D,25 Hydroxy 68.4 ng/mL
[2020-06-24 15:49] LABS: Microalbumin,Random Urine 68.3 mg/L (NO RANGE EST.); Microalbumin:Creatinine Ratio 112.5 mg/g CRE (<30 mg/g CRE)
[2020-06-24 15:50] LABS: ALB/GLOB Ratio 1.1 RATIO (0.9-2.4); AST(SGOT) 37 U/L (15-37); Alanine Aminotransfer ALT/SGPT 46 U/L (13-56); Albumin, Serum 3.6 g/dL (3.2-5.0); Alkaline Phosphatase 42 U/L (45-117); Anion Gap 5 (5-15); BUN 33 mg/dL (7-18); BUN/Creat Ratio 33.6 RATIO (10-20); Calcium,Total 9.2 mg/dL (8.5-10.1); Chloride 104 mmol/L (98-107); Cholesterol 221 mg/dL (200); Creatinine, Serum 0.98 mg/dL (0.55-1.02); EST Glomerular Filtration Rate 59 mL/min (>60); Est Glom Filt Rate - Afr Amer 71 mL/min (>60); Globulin 3.3 g/dL (2.2-4.2); Glucose 188 mg/dL (74-106); High Density Lipoprotein 84 mg/dL; Potassium 4.6 mmol/L (3.5-5.1); Protein, Total 6.9 g/dL (6.4-8.2); Sodium Level 138 mmol/L (136-145); Triglycerides 66 mg/dL; Very Low Density Lipoprotein 13 mg/dL (5-40)
== END ==
PROVIDERS: PCP Internal Medicine; Referring Provider Internal Medicine Endocrinology, Diabetes & Metabolism; Visit Provider Internal Medicine Endocrinology, Diabetes & Metabolism
DX: I10 Essential (primary) hypertension (principal); E10.69 Type 1 diabetes mellitus with other specified complication; E78.5 Hyperlipidemia, unspecified; E55.9 Vitamin D deficiency, unspecified
CPT/HCPCS: 36415; 80053; 80061; 82043; 82306; 82570; 84443; 85025

== ENCOUNTER → 2020-12-24 10:37 | Outpatient (CLI) | payer MEDICARE, OTHER, SELFPAY ==
[2020-12-24 09:02] VITALS: BMI 25.0
[2020-12-24 10:39] LABS: Bacteria 0 SEEN /hpf (None Seen); Mucous, Urine 0 SEEN /hpf (<or=2+); Red Blood Cells-Urine 0 SEEN /hpf (0-5); Squamous Epithelial Cells - UA 0 SEEN /hpf (5-10)
[2020-12-24 12:36] LABS: Color, Urine Yellow (Yellow); Glucose, Dipstick 100 mg/dl (Normal); Ketone-Dipstick 15 mg/dl (Negative); Leukocyte Esterase-Dipstick 500 /ul (Negative); Nitrite-Dipstick Negative (Negative); Occult Blood-Urine Negative /ul (Negative); Protein-Dipstick 15 mg/dl (Negative); Urine Bilirubin Dipstick Negative (Negative); Urine Clarity Sl. Cloudy (Clear); Urine Urobilinogen Normal (Normal)
[2020-12-24 12:43] LABS: White Blood Cells 10-25 SEEN /hpf (0-5)
== END ==
PROVIDERS: PCP Internal Medicine; Referring Provider Nurse Practitioner Family; Visit Provider Nurse Practitioner Family
DX: N39.0 Urinary tract infection, site not specified (principal); R30.0 Dysuria
CPT/HCPCS: 81001; 87086; 87088

== ENCOUNTER → 2021-02-16 12:11 | Outpatient (CLI) | payer MEDICARE, OTHER, SELFPAY ==
[2021-02-16 10:48] VITALS: BMI 25.4
[2021-02-16 12:35] LABS: Bacteria 0 SEEN /hpf (None Seen); Mucous, Urine 0 SEEN /hpf (<or=2+); Red Blood Cells-Urine 0 SEEN /hpf (0-5)
[2021-02-16 12:46] LABS: Color, Urine Yellow (Yellow); Glucose, Dipstick Normal (Normal); Ketone-Dipstick Negative (Negative); Leukocyte Esterase-Dipstick 100 /ul (Negative); Nitrite-Dipstick Negative (Negative); Occult Blood-Urine Negative /ul (Negative); Protein-Dipstick Negative (Negative); Specific Gravity, Urine 1.015 (1.002-1.030); Urine Bilirubin Dipstick Negative (Negative); Urine Clarity Sl. Cloudy (Clear); Urine Urobilinogen Normal (Normal)
[2021-02-16 12:55] LABS: Squamous Epithelial Cells - UA 0-5 SEEN /hpf (5-10); White Blood Cells 5-10 SEEN /hpf (0-5)
== END ==
PROVIDERS: PCP Internal Medicine; Visit Provider Physician Assistant
DX: R30.0 Dysuria (principal); N39.0 Urinary tract infection, site not specified
CPT/HCPCS: 81001; 87086; 87088

== ENCOUNTER → 2021-06-21 12:01 | Outpatient (CLI) | payer MEDICARE, OTHER, SELFPAY ==
[2021-06-21 15:46] LABS: AST(SGOT) 45 U/L (15-37); Alanine Aminotransfer ALT/SGPT 51 U/L (13-56); Albumin, Serum 3.6 g/dL (3.2-5.0); Alkaline Phosphatase 46 U/L (45-117); Anion Gap 9 (5-15); BUN 31 mg/dL (7-18); BUN/Creat Ratio 32.9 RATIO (10-20); Calcium,Total 10.1 mg/dL (8.5-10.1); Chloride 104 mmol/L (98-107); Cholesterol 205 mg/dL (200); Creatinine, Serum 0.94 mg/dL (0.55-1.02); EST Glomerular Filtration Rate 61 mL/min (>60); Est Glom Filt Rate - Afr Amer 74 mL/min (>60); Globulin 3.6 g/dL (2.2-4.2); Glucose 187 mg/dL (74-106); High Density Lipoprotein 79 mg/dL; Potassium 4.5 mmol/L (3.5-5.1); Protein, Total 7.2 g/dL (6.4-8.2); Sodium Level 140 mmol/L (136-145); Thyroid Stim Hormone (TSH) 1.73 uIU/mL (0.358-3.74); Triglycerides 49 mg/dL; Very Low Density Lipoprotein 10 mg/dL (5-40)
[2021-06-21 16:24] LABS: Vitamin B12 830 pg/mL (211-911); Vitamin D,25 Hydroxy 61.3 ng/mL
== END ==
PROVIDERS: PCP Internal Medicine; Referring Provider Nurse Practitioner Family; Visit Provider Nurse Practitioner Family
DX: I10 Essential (primary) hypertension (principal); E10.29 Type 1 diabetes mellitus with other diabetic kidney complication; R80.9 Proteinuria, unspecified; E78.5 Hyperlipidemia, unspecified; G62.9 Polyneuropathy, unspecified; M85.80 Other specified disorders of bone density and structure, unspecified site
CPT/HCPCS: 36415; 80053; 80061; 82306; 82607; 84443

== ENCOUNTER → 2021-06-22 13:41 | Outpatient (CLI) | payer MEDICARE, OTHER, SELFPAY ==
[2021-06-22 15:46] LABS: Microalbumin:Creatinine Ratio 105.8 mg/g CRE (<30 mg/g CRE)
== END ==
PROVIDERS: PCP Internal Medicine; Referring Provider Nurse Practitioner Family; Visit Provider Nurse Practitioner Family
DX: E10.29 Type 1 diabetes mellitus with other diabetic kidney complication (principal); R80.9 Proteinuria, unspecified
CPT/HCPCS: 82043; 82570

== ENCOUNTER → 2021-06-28 11:53 | Outpatient (CLI) | payer MEDICARE, OTHER, SELFPAY ==
[2021-06-28 11:55] LABS: Mucous, Urine 0 SEEN /hpf (<or=2+)
[2021-06-28 15:15] LABS: Absolute Neutrophil Count 3.6 X10^3/uL (2.0-7.7); Basophil# 0.06 X10^3/uL; Eosinophil# 0.12 X10^3/uL; Hematocrit 42.7 % (37-47); Hemoglobin 13.6 g/dL (12.0-15.0); Lymphocyte % 26.8 % (19-41); Mean Corp Hgb Conc 31.9 g/dL (32-36); Mean Corpuscular Hgb 29.8 pg (27.0-32.0); Mean Corpuscular Volume 93.4 fL (81-99); Mean Platelet Vol. 11.4 fl (6.2-12.0); Monocyte# 0.55 X10^3/uL; Monocyte% 9.2 % (0-10); NRBC Flagged by Analyzer 0 % (0-5); Neutrophil # 3.62 X10^3/uL (2.7-7.7); Neutrophil % 60.8 % (47-70); Platelet Count 211 K/mm3 (150-450); RBC Distribution Width CV 15.4 % (11.6-14.6); RBC Distribution Width SD 52.9 fl (35.1-43.9); Red Blood Count 4.57 M/mm3 (4.2-5.4)
[2021-06-28 15:21] LABS: Color, Urine Yellow (Yellow); Glucose, Dipstick Normal (Normal); Ketone-Dipstick 5 mg/dl (Negative); Leukocyte Esterase-Dipstick 500 /ul (Negative); Nitrite-Dipstick Negative (Negative); Occult Blood-Urine 10 /ul (Negative); Protein-Dipstick 15 mg/dl (Negative); Urine Bilirubin Dipstick Negative (Negative); Urine Clarity Sl. Cloudy (Clear); Urine Urobilinogen Normal (Normal)
[2021-06-28 15:30] LABS: Bacteria 1+ /hpf (None Seen); Red Blood Cells-Urine 0-5 SEEN /hpf (0-5); Squamous Epithelial Cells - UA 0-5 SEEN /hpf (5-10); White Blood Cells 25-50 SEEN /hpf (0-5)
[2021-06-28 15:37] LABS: Anion Gap 8 (5-15); BUN 35 mg/dL (7-18); BUN/Creat Ratio 40.5 RATIO (10-20); Calcium,Total 9.7 mg/dL (8.5-10.1); Chloride 105 mmol/L (98-107); Creatinine, Serum 0.86 mg/dL (0.55-1.02); EST Glomerular Filtration Rate 68 mL/min (>60); Est Glom Filt Rate - Afr Amer 82 mL/min (>60); Glucose 164 mg/dL (74-106); Potassium 4.6 mmol/L (3.5-5.1); Sodium Level 141 mmol/L (136-145)
== END ==
PROVIDERS: PCP Internal Medicine; Referring Provider Internal Medicine; Visit Provider Internal Medicine
DX: R39.15 Urgency of urination (principal); E10.29 Type 1 diabetes mellitus with other diabetic kidney complication; R80.9 Proteinuria, unspecified
CPT/HCPCS: 36415; 80048; 81001; 85025

== ENCOUNTER → 2021-07-04 08:36 | Outpatient (CLI) | payer MEDICARE, OTHER, SELFPAY | PROVIDERS: PCP Internal Medicine; Referring Provider Internal Medicine; Visit Provider Internal Medicine | DX: R39.15 Urgency of urination (principal) | CPT/HCPCS: 87086; 87088 ==

== ENCOUNTER 2021-09-05 10:15 | Outpatient (CLI) | payer MEDICARE, OTHER, SELFPAY | END 2021-09-05 23:59 | disposition short-term general hospital (02) | LOC: LABSPEC 10:17 | PROVIDERS: PCP Internal Medicine; Referring Provider Physician Assistant; Visit Provider Physician Assistant | DX: Z11.52 Encounter for screening for COVID-19 (principal) | CPT/HCPCS: 87635; U0003; U0005 ==

== ENCOUNTER 2021-10-25 09:51 | Outpatient (CLI) | payer MEDICARE, OTHER, SELFPAY ==
[2021-10-25 12:47] LABS: Anion Gap 8 (5-15); BUN 43 mg/dL (7-18); BUN/Creat Ratio 45.6 RATIO (10-20); Calcium,Total 9.3 mg/dL (8.5-10.1); Chloride 109 mmol/L (98-107); Creatinine, Serum 0.94 mg/dL (0.55-1.02); EST Glomerular Filtration Rate 61 mL/min (>60); Est Glom Filt Rate - Afr Amer 74 mL/min (>60); Glucose 211 mg/dL (74-106); Potassium 4.4 mmol/L (3.5-5.1); Sodium Level 144 mmol/L (136-145)
== END 2021-10-25 23:59 | disposition home or self-care (01) ==
LOC: BIMLAB 09:52
PROVIDERS: PCP Internal Medicine; Referring Provider Internal Medicine; Visit Provider Internal Medicine
DX: I10 Essential (primary) hypertension (principal)
CPT/HCPCS: 36415; 80048

== ENCOUNTER → 2022-06-20 | Outpatient (CLI) | payer MEDICARE, OTHER, SELFPAY ==
[2022-06-20 12:46] LABS: Vitamin D,25 Hydroxy 65.8 ng/mL
[2022-06-20 12:54] LABS: ALB/GLOB Ratio 1.1 RATIO (0.9-2.4); AST(SGOT) 24 U/L (15-37); Alanine Aminotransfer ALT/SGPT 25 U/L (13-56); Albumin, Serum 3.5 g/dL (3.2-5.0); Alkaline Phosphatase 49 U/L (45-117); Anion Gap 7 (5-15); BUN 32 mg/dL (7-18); BUN/Creat Ratio 33.6 RATIO (10-20); Calcium,Total 9.3 mg/dL (8.5-10.1); Chloride 108 mmol/L (98-107); Cholesterol 155 mg/dL (200); Creatinine, Serum 0.95 mg/dL (0.55-1.02); EST Glomerular Filtration Rate 60 mL/min (>60); Est Glom Filt Rate - Afr Amer 73 mL/min (>60); Globulin 3.3 g/dL (2.2-4.2); Glucose 196 mg/dL (74-106); High Density Lipoprotein 89 mg/dL; Potassium 4.4 mmol/L (3.5-5.1); Protein, Total 6.8 g/dL (6.4-8.2); Sodium Level 140 mmol/L (136-145); Thyroid Stim Hormone (TSH) 3.02 uIU/mL (0.358-3.74); Triglycerides 45 mg/dL; Very Low Density Lipoprotein 9 mg/dL (5-40)
[2022-06-20 13:02] LABS: Microalbumin,Random Urine 8.3 mg/L (NO RANGE EST.); Microalbumin:Creatinine Ratio 17.6 mg/g CRE (<30 mg/g CRE)
== END | disposition home or self-care (01) ==
LOC: BIMLAB 08:04
PROVIDERS: PCP Internal Medicine; Referring Provider Nurse Practitioner Family; Visit Provider Nurse Practitioner Family
DX: E11.9 Type 2 diabetes mellitus without complications (principal); M85.80 Other specified disorders of bone density and structure, unspecified site; R80.9 Proteinuria, unspecified
CPT/HCPCS: 36415; 80053; 80061; 82043; 82306; 82570; 84443

== ENCOUNTER → 2022-09-29 | Outpatient (CLI) | payer MEDICARE, OTHER, SELFPAY ==
[2022-09-29 12:21] LABS: Basophil# 0.05 X10^3/uL; Basophil% 0.8 % (0-1); Eosinophil# 0.16 X10^3/uL; Eosinophils% 2.6 % (0-5); Hematocrit 44.2 % (37-47); Hemoglobin 13.9 g/dL (12.0-15.0); Lymphocyte % 22.7 % (19-41); Mean Corp Hgb Conc 31.4 g/dL (32-36); Mean Corpuscular Hgb 28.5 pg (27.0-32.0); Mean Corpuscular Volume 90.8 fL (81-99); Mean Platelet Vol. 11.2 fl (6.2-12.0); Monocyte# 0.52 X10^3/uL; Monocyte% 8.4 % (0-10); NRBC Flagged by Analyzer 0 % (0-5); Neutrophil # 4.01 X10^3/uL (2.7-7.7); Platelet Count 202 K/mm3 (150-450); RBC Distribution Width CV 13.9 % (11.6-14.6); RBC Distribution Width SD 46.6 fl (35.1-43.9); Red Blood Count 4.87 M/mm3 (4.2-5.4); White Blood Count 6.2 K/mm3 (4.4-11.0)
[2022-09-29 12:32] LABS: ALB/GLOB Ratio 1.1 RATIO (0.9-2.4); AST(SGOT) 27 U/L (15-37); Alanine Aminotransfer ALT/SGPT 24 U/L (13-56); Albumin, Serum 3.7 g/dL (3.2-5.0); Alkaline Phosphatase 58 U/L (45-117); Anion Gap 7 (5-15); BUN 40 mg/dL (7-18); Calcium,Total 9.8 mg/dL (8.5-10.1); Chloride 109 mmol/L (98-107); Creatinine, Serum 1.08 mg/dL (0.55-1.02); EST Glomerular Filtration Rate 52 mL/min (>60); Est Glom Filt Rate - Afr Amer 63 mL/min (>60); Globulin 3.3 g/dL (2.2-4.2); Glucose 195 mg/dL (74-106); Potassium 4.1 mmol/L (3.5-5.1); Sodium Level 143 mmol/L (136-145)
== END | disposition home or self-care (01) ==
LOC: BIMLAB 09:37
PROVIDERS: PCP Internal Medicine; Referring Provider Internal Medicine; Visit Provider Internal Medicine
DX: K21.9 Gastro-esophageal reflux disease without esophagitis (principal)
CPT/HCPCS: 36415; 80053; 85025

== ENCOUNTER 2022-11-10 07:13 | Day surgery (SDC) | payer MEDICARE, OTHER, SELFPAY ==
[2022-11-10 07:39] VITALS: BP 115/62; PULSE 96; RESP 20; TEMP 36.7; O2SAT 100; BMI 25.3
[2022-11-10] MEDS: Lactated Ringers 1,000 ML 15 ML IV (07:49)
--- NOTE | 2022-11-10 08:15 | HP.PCM_ITS ---
History and Physical Date of Admission: 11/10/22 Intake Vital Signs ? 10/05/2309:11 Weight: 150 lb BP 128/86 H Blood Pressure Location Rt brachial Position Sitting Respiration 17 Pulse 74 Pulse Source Monitor Temp 97.6 F L Temp Source Temporal Pulse Oximetry (%) 98 Oxygen Delivery Method room air Intake Visit Reasons:?Acid reflux Chief Complaint: acid reflux Allergies codeine Allergy (Severe, Verified 10/05/22 10:13) UnknownSulfa (Sulfonamide Antibiotics) Allergy (Severe, Verified 10/05/22 10:13) UnknownPenicillins Allergy (Mild, Verified 10/05/22 10:13) Rash Medications calcium carbonate 600 mg-vitamin D3 20 mcg (800 unit) chewable tablet (Caltrate 600 plus D) 1 tab PO BID 08/29/17 [History Confirmed 10/05/22] [employer]alus Group[employer] Ultra Blue Test Strip (blood sugar diagnostic) #270 ea 10/07/18 [Rx Confirmed 10/05/22] cetirizine 10 mg capsule (Zyrtec) PO DAILY PRN 07/07/19 [History Confirmed 10/05/22] cholecalciferol (vitamin D3) 50 mcg (2,000 unit) capsule 2,000 unit PO DAILY 12/18/19 [History Confirmed 10/05/22] selenium sulfide 2.5 % lotion 1 ea topical DAILY #120 mL 06/24/20 [Rx Confirmed 10/05/22] Handicap Placard #1 ea 06/28/21 [Rx Confirmed 10/05/22] hydrocortisone 2.5 % topical cream 1 applic topical BID PRN rash #28.35 grams 10/25/21 [Rx Confirmed 10/05/22] pen needle, diabetic 31 gauge x 5/16 (Easy Touch) #150 ea 12/08/21 [Rx Confirmed 10/05/22] gabapentin 300 mg capsule (Neurontin) 300 mg PO BID 3 months #180 caps 03/14/22 [Rx Confirmed 10/05/22] oxybutynin chloride 10 mg tablet,extended release 24 hr 10 mg PO DAILY 03/14/22 [History Confirmed 10/05/22] rosuvastatin 40 mg tablet 40 mg PO 03/22/22 [History Confirmed 10/05/22] losartan 50 mg tablet 50 mg PO DAILY #90 tabs 04/13/22 [Rx Confirmed 10/05/22] insulin lispro 100 unit/mL subcutaneous pen (Humalog KwikPen (U-100) Insulin) See Rx Instructions subcut TID #15 mL 06/21/22 [Rx Confirmed 10/05/22] flash glucose scanning reader (FreeStyle Mook 2 [place]) #1 ea 08/15/22 [Rx Confirmed 10/05/22] blood sugar diagnostic (OneTouch Ultra Test strips) #100 ea 08/17/22 [Rx Confir med 10/05/22] insulin glargine 100 unit/mL (3 mL) subcutaneous pen (Lantus Solostar U-100 Insulin) 5 unit subcut QDAY 09/29/22 [History Confirmed 10/05/22] omeprazole 40 mg capsule,delayed release 40 mg PO DAILY #90 caps 09/29/22 [Rx Confirmed 10/05/22] PFSH Medical History? Action tremor Arthritis Back problem Breast lump Carpal tunnel syndrome Dermatitis Diabetes type 1, controlled Diabetic neuropathy Difficulty balancing Difficulty swallowing Gallstones GERD (gastroesophageal reflux disease) Insulin dependent diabetes mellitus Neuropathy Osteoarthritis Overactive bladder Pancreatitis Skin cancer Urinary frequency Urinary urgency Surgical History? H/O: hysterectomy History of carpal tunnel release History of cholecystectomy History of tonsillectomy History of total knee arthroplasty Family History? Mother Asthma Liver diseaseFather CVA (cerebral vascular accident) Social History? Smoking Status:? Never smoker second hand exposure:? No alcohol intake:? never substance use type:? does not use what type of physical activity do you participate in:? walking frequency:? daily HPI HPI HPI: Patient is a 77-year-old female here for anemia and dysphagia.? She says all of her problems started at the beginning of this year.? She says because she has been having reflux as well as dysphagia and feeling like there is a lump in the back of her throat and she has been anemic which is a new problem for her.? Her last colonoscopy was over 10 years ago.? She does not have any gross blood in her stool or abdominal pain. ROS General General: No weight change, appetite, fatigue, colon cancer or breast cancer HEENT HEENT: Yes difficulty swallowing; No eye injury, eye surgery, swollen glands or hoarseness Endo Endocrine: Yes diabetes mellitus; No thyroid disease, thyroid cancer, Hair loss, heat intolerance or cold intolerance Skin Skin: No rash or changing moles Musc Musculoskeletal: Yes back problems and arthritis; No rheumatoid arthritis, gout or joint pain Cardio Cardiovascular: No murmur, pacemaker, heart disease, atrial fibrillation, high blood pressure, heart attack, heart stent, palpitations, shortness of breat with exertion or chest pain Psych Psychiatric: No depression, anxiety or hearing voices Resp Respiratory: No shortness of breath, No sleep apnea, No cough, No COPD, No asthma, No emphysema and No wheezing Gastro Gastrointestinal: No abdominal pain, No nausea or vomiting, No diarrhea, No constipation, No blood in stool, Yes acid reflux, No hemorrhoids, No ulcers, No gallbladder problem and No black,tarry stools Oliver Hematologic: No blood thinners, No blood disorders, No bleeding, No anemia and No blood clots Neuro Neurologic: Yes numbness Exam Const General: cooperative Orientation: alert and oriented x3 HENMT Head: normal to inspection Neck Neck: normal visual inspection and full ROM Chest Chest palpation & inspection: normal inspection of the chest Resp Effort & Inspection: normal respiratory effort Auscultation: clear to auscultation bilaterally Cardio Rate: regular rate Rhythm: regular rhythm GI Inspection: non-distended Palpation: soft and nontender Skin General: no rashes or lesions noted Neuro General: patient alert and patient oriented x3 Extrem General: full ROM Psych Appearance: grossly normal Mental Status: mental status grossly normal Assessment and Plan Assessment and Plan (1) GERD (gastroesophageal reflux disease): ?Status:?Acute ?Qualifiers: ?Esophagitis presence:?esophagitis presence not specified? Qualified Code(s):?K21.9 - Gastro-esophageal reflux disease without esophagitis (2) Difficulty swallowing: ?Status:?Acute ?Qualifiers: ?Dysphagia type:?esophageal phase? Qualified Code(s):?R13.19 - Other dysphagia (3) Anemia: ?Status:?Acute ?Qualifiers: ?Anemia type:?unspecified type? Qualified Code(s):?D64.9 - Anemia, unspecified ? ? ? Orders: Orders Colonoscopy Today ? ? EGD Today ? ? Plan The patient has anemia but she is also been reporting a lot more acid reflux and dysphagia in the last month.? I discussed EGD and colonoscopy with her with possible dilation of esophagus.? I also discussed possible biopsy with her.? I explained endoscopy in detail to the patient.? I explained the risks including but not limited to stroke or heart attack with anesthesia, perforation of the GI tract, bleeding, infection.? I explained that any of these could necessitate further emergency surgery.? The patient understands and all questions were answered sufficiently.? The patient wishes to proceed with procedure. Deangelo Cantu MD Pager: [facility] [address] [place] [address] [address] [place] [address] Office: I have examined the patient and the H&P has been reviewed. There are no clinical changes since date of exam.
--- NOTE | 2022-11-10 08:30 | COLBX_PTH ---
PATIENT: AMIRA MERAZ LOC: EN U#:[id number] AGE/SX: 77/F ROOM: RE11/10/[address]: Dr. Deangelo Cantu MD : 1945 BED: DIS: 11/10/2022 SPEC #: [id number] RECD: 11/10/22 10:23 STATUS: CARO ENRIQUEZ #: [id number] ANABELLE: 11/10/22 08:[address]: Deangelo Cantu DEPT: SURGICAL PATHOLOGY RECD BY: Marixa Gil ENTERED: 11/10/22 11:26 SP TYPE: COLON BX OTHR DR: Dr. Kumar Mcguire MD Tissues: Sigmoid colon biopsy Procedures: Surgery Specimen Level IV HEADER OPERATION: Colonoscopy, EGD ([facility]) with polypectomy PRE-OP DIAGNOSIS: GERD, difficulty swallowing, anemia TISSUE SUBMITTED: Sigmoid polyp MICROSCOPIC DIAGNOSIS Sigmoid polyp, polypectomy: Tubular adenoma. Fragments of fecal material. SJ:agnieszka 11/13/2022 MICROSCOPIC DESCRIPTION Slides are reviewed. GROSS DESCRIPTION Received in fixative is one container labeled with the patient's name and designated sigmoid polyp. The specimen consists of one irregular fragment of light arango soft tissue that measures 0.5 x 0.5 x 0.2 cm. Multiple small fragments of fecal material are also noted. The specimen is totally submitted in one cassette. / KELLIE:agnieszka 11/10/2022 TC:1 CPT: 94872
--- NOTE | 2022-11-10 09:04 | OP.EGD_ITS ---
Patient Name: Tasneem Batista Procedure Date: 11/10/2022 8:23 AM Date of : 1945 Age: 77 Procedure: Upper GI endoscopy Indications: Iron deficiency anemia, Dysphagia Providers: Deangelo Cantu MD Medicines: Monitored Anesthesia Care Patient Profile: This is a 77 year old female. Refer to note in patient chart for documentation of history and physical. Complications: No immediate complications. Procedure: Pre-Anesthesia Assessment: - Prior to the procedure, a History and Physical was performed, and patient medications and allergies were reviewed. The patient's tolerance of previous anesthesia was also reviewed. The risks and benefits of the procedure and the sedation options and risks were discussed with the patient. All questions were answered, and informed consent was obtained. Prior Anticoagulants: The patient has taken no previous anticoagulant or antiplatelet agents. After reviewing the risks and benefits, the patient was deemed in satisfactory condition to undergo the procedure. After obtaining informed consent, the endoscope was passed under direct vision. Throughout the procedure, the patient's blood pressure, pulse, and oxygen saturations were monitored continuously. The gastroscope was introduced through the mouth, and advanced to the second part of duodenum. The upper GI endoscopy was accomplished without difficulty. The patient tolerated the procedure well. Scope In: 8:35:31 AM Scope Out: 8:38:32 AM Total Procedure Duration Time 0 hours 3 minutes 1 second Findings: A large hiatal hernia was present. The examined duodenum was normal. Impression: - Large hiatal hernia. Diaphragm at 40 cm, GE junction at 31 cm. Large amount of stomach in the chest. - Normal examined duodenum. - No specimens collected. Recommendation: - Discharge patient to home. - Resume previous diet. - Continue present medications. Procedure Code(s): --- Professional --- 24393, Esophagogastroduodenoscopy, flexible, transoral; diagnostic, including collection of specimen(s) by brushing or washing, when performed (separate procedure) Diagnosis Code(s): --- Professional --- K44.9, Diaphragmatic hernia without obstruction or gangrene D50.9, Iron deficiency anemia, unspecified R13.10, Dysphagia, unspecified CPT copyright 2017 [employer]. All rights reserved. The codes documented in this report are preliminary and upon puncher review may be revised to meet current compliance requirements. Deangelo Cantu MD 11/10/2022 9:04:09 AM This report has been signed electronically. Number of Addenda: 0 Note Initiated On: 11/10/2022 8:23 AM
[2022-11-10 09:05] VITALS: BP 113/65; PULSE 79; RESP 16; TEMP 36.7; O2SAT 99
--- NOTE | 2022-11-10 09:05 | OP.CCLET_ITS ---
11/10/2022 Kumar Mcguire MD [address] [place] [address] [place] [address] Re : Upper GI endoscopy procedure for Tasneem Batista Dear Dr. Mcguire This procedure was performed on Thursday, November 10, 2022. My impressions and recommendations are as follows: Impressions : - Large hiatal hernia. Diaphragm at 40 cm, GE junction at 31 cm. Large amount of stomach in the chest. - Normal examined duodenum. - No specimens collected. Recommendations : - Discharge patient to home. - Resume previous diet. - Continue present medications. My findings are described in the full procedure note, which is enclosed. If I can be of further assistance, please feel free to contact me at Doctor phone number(s): , Work: . Sincerely, Deangelo Canut MD 11/10/2022 9:04:09 AM This report has been signed electronically.
--- NOTE | 2022-11-10 09:09 | OP.COLON_ITS ---
Patient Name: Tasneem Batista Procedure Date: 11/10/2022 8:43 AM Date of : 1945 Age: 77 Procedure: Colonoscopy Indications: Iron deficiency anemia Providers: Deangelo Cantu MD Medicines: Monitored Anesthesia Care Patient Profile: This is a 77 year old female. Refer to note in patient chart for documentation of history and physical. Last Colonoscopy: 10 years ago. Complications: No immediate complications. Procedure: Pre-Anesthesia Assessment: - Prior to the procedure, a History and Physical was performed, and patient medications and allergies were reviewed. The patient's tolerance of previous anesthesia was also reviewed. The risks and benefits of the procedure and the sedation options and risks were discussed with the patient. All questions were answered, and informed consent was obtained. Prior Anticoagulants: The patient has taken no previous anticoagulant or antiplatelet agents. After reviewing the risks and benefits, the patient was deemed in satisfactory condition to undergo the procedure. - Prior to the procedure, a History and Physical was performed, and patient medications and allergies were reviewed. The patient's tolerance of previous anesthesia was also reviewed. The risks and benefits of the procedure and the sedation options and risks were discussed with the patient. All questions were answered, and informed consent was obtained. Prior Anticoagulants: The patient has taken no previous anticoagulant or antiplatelet agents. After reviewing the risks and benefits, the patient was deemed in satisfactory condition to undergo the procedure. After I obtained informed consent, the scope was passed under direct vision. Throughout the procedure, the patient's blood pressure, pulse, and oxygen saturations were monitored continuously. The Colonoscope was introduced through the anus and advanced to the cecum, identified by appendiceal orifice and ileocecal valve. The colonoscopy was performed without difficulty. The patient tolerated the procedure well. The quality of the bowel preparation was good. Scope In: 8:46:02 AM Scope Withdrawal Time 0 hours 7 minutes 7 seconds Scope Out: 9:00:47 AM Total Procedure Duration Time 0 hours 14 minutes 45 seconds Findings: A small polyp was found in the sigmoid colon. The polyp was removed with a hot snare. Resection and retrieval were complete. The exam was otherwise without abnormality on direct and retroflexion views. Impression: - One small polyp in the sigmoid colon, removed with a hot snare. Resected and retrieved. - The examination was otherwise normal on direct and retroflexion views. Recommendation: - Discharge patient to home. - Resume previous diet. - Continue present medications. - Await pathology results. - Repeat colonoscopy in 5 years for surveillance. Procedure Code(s): --- Professional --- 98944, Colonoscopy, flexible; with removal of tumor(s), polyp(s), or other lesion(s) by snare technique Diagnosis Code(s): --- Professional --- D12.5, Benign neoplasm of sigmoid colon D50.9, Iron deficiency anemia, unspecified CPT copyright 2017 [employer]. All rights reserved. The codes documented in this report are preliminary and upon nut culler review may be revised to meet current compliance requirements. Deangelo Cantu MD 11/10/2022 9:09:12 AM This report has been signed electronically. Number of Addenda: 0 Note Initiated On: 11/10/2022 8:43 AM
[2022-11-10 09:10] VITALS: BP 118/71; PULSE 81; RESP 16; O2SAT 99
--- NOTE | 2022-11-10 09:10 | OP.CCLET_ITS ---
11/10/2022 Kumar Mcguire MD [address] [place] [address] [place] [address] Re : Colonoscopy procedure for Tasneem Batista Dear Dr. Mcguire This procedure was performed on Thursday, November 10, 2022. My impressions and recommendations are as follows: Impressions : - One small polyp in the sigmoid colon, removed with a hot snare. Resected and retrieved. - The examination was otherwise normal on direct and retroflexion views. Recommendations : - Discharge patient to home. - Resume previous diet. - Continue present medications. - Await pathology results. - Repeat colonoscopy in 5 years for surveillance. My findings are described in the full procedure note, which is enclosed. If I can be of further assistance, please feel free to contact me at Doctor phone number(s): , Work: . Sincerely, Deangelo Cantu MD 11/10/2022 9:09:12 AM This report has been signed electronically.
[2022-11-10 09:15] VITALS: BP 119/69; PULSE 68; RESP 16; O2SAT 99
[2022-11-10 09:20] VITALS: BP 118/72; PULSE 81; RESP 16; TEMP 36.7; O2SAT 100
== END 2022-11-10 10:04 | disposition home or self-care (01) ==
LOC: EN 07:13 → AC 07:15
PROVIDERS: PCP Internal Medicine; Referring Provider Surgery; Visit Provider Surgery
PROC: 0DJD8ZZ Inspection of Lower Intestinal Tract, Via Natural or Artificial Opening Endoscopic (ICD-10-PCS; CPT 45378; principal; 2022-11-10 08:25)
DX: D12.5 Benign neoplasm of sigmoid colon (principal); Z79.4 Long term (current) use of insulin; E10.9 Type 1 diabetes mellitus without complications; K44.9 Diaphragmatic hernia without obstruction or gangrene; K21.9 Gastro-esophageal reflux disease without esophagitis; D64.9 Anemia, unspecified; I10 Essential (primary) hypertension; N32.9 Bladder disorder, unspecified; Z79.899 Other long term (current) drug therapy
CPT/HCPCS: 45385; 43235; 88305; J7120; J2405

== ENCOUNTER 2023-03-16 10:23 | Outpatient (CLI) | payer MEDICARE, OTHER, SELFPAY ==
[2023-03-16 12:53] LABS: AST(SGOT) 31 U/L (15-37); Alanine Aminotransfer ALT/SGPT 22 U/L (13-56); Albumin, Serum 3.5 g/dL (3.2-5.0); Alkaline Phosphatase 61 U/L (45-117); Anion Gap 5 (5-15); BUN 30 mg/dL (7-18); BUN/Creat Ratio 28.3 RATIO (10-20); Calcium,Total 9.4 mg/dL (8.5-10.1); Chloride 109 mmol/L (98-107); Creatinine, Serum 1.06 mg/dL (0.55-1.02); EST Glomerular Filtration Rate 53 mL/min (>60); Est Glom Filt Rate - Afr Amer 64 mL/min (>60); Globulin 3.4 g/dL (2.2-4.2); Glucose 135 mg/dL (74-106); Potassium 4.5 mmol/L (3.5-5.1); Protein, Total 6.9 g/dL (6.4-8.2); Sodium Level 141 mmol/L (136-145)
[2023-03-16 13:06] LABS: BNP,B-Type NATRIURETIC PEPTIDE 81.8 pg/mL (0-100)
== END 2023-03-16 23:59 | disposition home or self-care (01) ==
LOC: BIMLAB 10:24
PROVIDERS: PCP Internal Medicine; Referring Provider Internal Medicine; Visit Provider Internal Medicine
DX: R60.0 Localized edema (principal); I10 Essential (primary) hypertension
CPT/HCPCS: 36415; 80053; 83880

== ENCOUNTER → 2023-03-21 | Outpatient (CLI) | payer MEDICARE, OTHER, SELFPAY ==
--- NOTE | 2023-03-21 08:47 | VDLE_ITS ---
Reason For Study: Swelling RIGHT LEFT GSV is normal. GSV is normal. CFV is compressible, spontaneous, phasic, CFV is compressible, spontaneous, phasic, competent and demonstrates normal competent, and demonstrates normal augmentation. augmentation. FV is compressible, spontaneous, phasic, FV is compressible, spontaneous, phasic, competent and demonstrates normal competent and demonstrates normal augmentation. augmentation. POP V is compressible, spontaneous, phasic, POP V is compressible, spontaneous, phasic, competent and demonstrates normal competent and demonstrates normal augmentation. augmentation. T/P Trunk is compressible. T/P Trunk is compressible. PTV is compressible. PTV is compressible. RT PerV is compressible. LT PerV is compressible. Heterogeneous, non vascular structure noted Heterogeneous, non vascular structure noted Rt Pop Fossa measuring 1.11cm x 3.05cm. Lt Pop Fossa measuring 2.51cm x 1.76cm. Procedure This is a venous duplex using B-mode, color flow and spectral Doppler. Exam performed in department. A preliminary report was called and/or faxed to Dr. Mcguire. VL/Venous Duplex US - Temo Extrem Interpretation Summary Deep veins of the bilateral lower extremities are patent and compressible segme ntally. There is no evidence of bilateral lower extremity deep vein thrombosis. The bilateral great saphenous veins appear patent and compressible segmentally. Heterogeneous, non vascular structure noted right popliteal fossa measuring 1.1 1cm x 3.05cm. Heterogeneous, non vascular structure noted left popliteal fossa measuring 2.51 cm x 1.76cm. Ordering Physician: Kumar Mcguire Referring Physician: Kumar Mcguire Performed By: Wendy Albrecht, RDJOANN, RVT
== END | disposition home or self-care (01) ==
LOC: CVS 08:46
PROVIDERS: PCP Internal Medicine; Referring Provider Internal Medicine; Visit Provider Internal Medicine
DX: M79.89 Other specified soft tissue disorders (principal); I10 Essential (primary) hypertension
CPT/HCPCS: 93005; 93970

== ENCOUNTER → 2023-03-27 | Outpatient (CLI) | payer MEDICARE, OTHER, SELFPAY ==
--- NOTE | 2023-03-27 11:04 | US_ITS ---
STUDY: SUPERFICIAL ULTRASOUND - PALPABLE LUMPS IN BOTH POPLITEAL FOSSA CYST. REASON FOR EXAM: Female, 78 years old. Bilateral Popliteal Fossa Mass TECHNIQUE: A superficial ultrasound was performed with real-time and static falk-scale imaging. COMPARISON: None. FINDINGS: Imaging of both popliteal fossa is was obtained. On the right side, there is a 4.6 cm x 1.1 cm x 1.6 cm heterogeneous cystic structure suggestive of a Hoang''s cyst. On the left, there is a 3 cm x 1.4 cm x 1 cm irregular heterogeneous cystic density suggestive of popliteal cyst. There is also evidence of edematous tissue seen in the left popliteal fossa. US/Ext Non Vasc Limited/Soft Tiss IMPRESSION: Findings in keeping with bilateral popliteal cysts. Edematous changes in the left lower extremity. Electronically Signed: Ran Parks MD at 15:08 EDT ,
== END | disposition home or self-care (01) ==
PROVIDERS: PCP Internal Medicine; Referring Provider Internal Medicine; Visit Provider Internal Medicine
DX: M25.469 Effusion, unspecified knee (principal)
CPT/HCPCS: 76882

== ENCOUNTER 2023-06-26 14:48 | Emergency (ER) | payer MEDICARE, OTHER, SELFPAY ==
[2023-06-26 14:48] VITALS: BP 131/74; PULSE 95; RESP 16; TEMP 36.6; O2SAT 99; BMI 26.7
--- NOTE | 2023-06-26 15:04 | RAD_ITS ---
STUDY: X-RAY - RIGHT KNEE REASON FOR EXAM: Female, 78 years old. Knee pain following injury. TECHNIQUE: 4 view(s) of the knee. COMPARISON: None. FINDINGS: Normal visualized distal femur. Normal visualized proximal tibia and fibula. Normal proximal tibiofibular articulation. There is severe degenerative arthrosis of the medial femorotibial compartment with severe joint space narrowing. Normal lateral femorotibial compartment. There is severe degenerative arthrosis of the patellofemoral articulation. There are atherosclerotic calcifications. RAD/Knee 4 or More Views IMPRESSION: Degenerative arthrosis. Electronically Signed: Ran Parks MD at 15:31 EDT ,
--- NOTE | 2023-06-26 15:04 | VDLE_ITS ---
Reason For Study: Right knee pain RIGHT GSV is normal. CFV is compressible, spontaneous, phasic, competent and demonstrates normal augmentation. FV is compressible, spontaneous, phasic, competent and demonstrates normal augmentation. POP V is compressible, spontaneous, phasic, competent and demonstrates normal augmentation. T/P Trunk is compressible. PTV is compressible. RT PerV is compressible. Heterogeneous, non vascular structure noted Rt Pop Fossa measuring 1.13 x 3.35cm. Procedure This is a venous duplex using B-mode, color flow and spectral Doppler. Exam performed portable in ED. A preliminary report was called and/or faxed to Dr. Mao. VL/Venous Duplex US, Unilateral Interpretation Summary Deep veins of the right lower extremity are patent and compressible segmentally . There is no evidence of right lower extremity deep vein thrombosis. The right great sapheno us vein appears patent and compressible segmentally. Heterogeneous, non vascular structure noted in the right popliteal fossa measur ing 1.13 x 3.35cm. Ordering Physician: Liset Mao Referring Physician: Kumar Mcguire Performed By: Lianet Sky RVT
--- NOTE | 2023-06-26 15:05 | EDS_ITS ---
HPI History of Present Illness Chief Complaint: Lower Extremity Injury Detail of Chief Complaint: Right knee pain Informant: patient Narrative Narrative: Patient presents secondary to right knee pain. She fell 2 days ago landing on her right knee. She tripped over a rug. Patient has increased pain to her right knee when she bears weight. She was seen and evaluated there was some concern for possible redness and blood clot so she was sent to the emergency room. Patient has a history of chronic lower extremity edema that she feels is unchanged from baseline. [facility] Medical History (Updated 06/26/23 @ 15:[address] Liset Mao MD) Action tremor Anemia Arthritis Back pain Bilateral lower extremity edema Bladder disease Breast lump Cardiology follow-up encounter Dermatitis Diabetes type 1, controlled Diabetic neuropathy Dietary restriction Difficulty balancing Difficulty swallowing Gastric reflux High cholesterol History of echocardiogram History of edema History of pain when walking History of stress test Hyperlipidemia Hypertension Injury of head and neck Insulin dependent diabetes mellitus Jaw clicking Leg cramps Neuropathy Non-smoker Osteoarthritis Overactive bladder Pancreatitis Skin cancer Soft tissue swelling of knee joint Urinary frequency Urinary urgency Wears glasses Home Medications OneTouch Ultra Blue Test Strip (blood sugar diagnostic) #270 ea 10/07/18 [Rx Last Taken Unknown] cetirizine 10 mg capsule (Zyrtec) 10 mg PO PRN PRN ALLERGIES 07/07/19 [History Last Taken Unknown] cholecalciferol (vitamin D3) 50 mcg (2,000 unit) capsule 2,000 unit PO DAILY 12/18/19 [History Last Taken Unknown] Handicap Placard #1 ea 06/28/21 [Rx Last Taken Unknown] hydrocortisone 2.5 % topical cream 1 applic topical BID PRN rash #28.35 grams 10/25/21 [Rx Last Taken Unknown] pen needle, diabetic 31 gauge x /16 (Easy Touch) #150 ea 12/08/21 [Rx Last Taken Unknown] oxybutynin chloride 10 mg tablet,extended release 24 hr 10 mg PO DAILY 03/14/22 [History Last Taken 11/10/22] flash glucose scanning reader ([place] Mook 2 [place]) #1 ea 08/15/22 [Rx Last Taken Unknown] blood sugar diagnostic (OneTouch Ultra Test strips) #100 ea 08/17/22 [Rx Last Taken Unknown] selenium sulfide 2.5 % lotion 1 ea topical PRN PRN Skin Cleansing 11/07/22 [History Last Taken Unknown] calcium carbonate 600 mg-vitamin D3 20 mcg (800 unit) chewable tablet (Caltrate 600 plus D) See Rx Instructions PO DAILY 12/20/22 [History Last Taken Unknown] insulin glargine 100 unit/mL (3 mL) subcutaneous pen (Lantus Solostar U-100 Insulin) 5 unit (0.05 mL) subcut QHS #3 mL 12/20/22 [Rx Last Taken Unknown] rosuvastatin 40 mg tablet 40 mg PO QHS #90 tabs 01/01/23 [Rx Last Taken Unknown] famotidine 20 mg tablet 20 mg PO QHS #60 tabs 01/11/23 [Rx Last Taken Unknown] comp.stocking,thigh,long,large #2 ea 03/16/23 [Rx Last Taken Unknown] insulin lispro 100 unit/mL subcutaneous half-unit pen (Humalog Kenny KwikPen (U-100)) 10.5 unit subcut QAC 03/16/23 [History Last Taken Unknown] omeprazole 40 mg capsule,delayed release 40 mg PO DAILY #90 caps 03/27/23 [Rx Last Taken Unknown] gabapentin 300 mg capsule (Neurontin) 300 mg PO QHS #90 caps 04/19/23 [Rx Last Taken Unknown] losartan 50 mg tablet 50 mg PO DAILY #90 tabs 04/19/23 [Rx Last Taken Unknown] Allergy/AdvReac Type Severity Reaction Status Date / Time codeine Allergy Severe Unknown Verified 06/26/23 15:31 Sulfa (Sulfonamide Allergy Severe Unknown Verified 06/26/23 15:31 Antibiotics) Penicillins Allergy Mild Rash Verified 06/26/23 15:31 Family History Mother Asthma Liver disease Father CVA (cerebral vascular accident) Surgical History H/O: hysterectomy History of carpal tunnel release History of cholecystectomy History of tonsillectomy History of total knee arthroplasty Hx of blepharoplasty Social History Smoking Status: Never smoker second hand exposure: No alcohol intake: never substance use type: does not use what type of physical activity do you participate in: walking frequency: daily ROS ROS ED Constitutional Constitutional ED: Denies chills or fever(s) Eyes Eyes: Denies discharge from eye(s) ENT ENT ED: Denies discharge from eye(s), rhinorrhea or sore throat Cardiovascular Cardiovascular: Denies chest pain or palpitations Respiratory/Chest Respiratory/Chest: Denies cough or dyspnea Gastrointestinal Gastrointestinal: Denies abdominal pain, nausea or vomiting Musculoskeletal Musculoskeletal: Reports extremity pain; Denies back pain Integumentary Denies Abrasions or rash Neurologic Neurologic: Denies headache(s) or weakness Psychiatric Psychiatric: Denies anxiety or depression Allergic/Immunologic Allergic/Immunologic ED: Denies lip swelling or urticaria EXAM Physical Exam Const Vital Signs: 06/26/23 14:48 Temperature 97.9 F Temperature Source Temporal Pulse Rate 95 Respiratory Rate 16 Blood Pressure 131/74 H Blood Pressure Mean 93 Pulse Ox 99 Oxygen Delivery Method Room Air Positive well nourished and well developed General Appearance ED: well developed HEENT Reports normocephalic and head/scalp atraumatic Eyes PERRL and EOMs intact bilaterally Neck supple Chest Wall inspection of chest normal and palpation of chest normal Resp normal respiratory effort and clear to auscultation bilaterally Cardio regular rate and regular rhythm GI normal to inspection, nondistended, normoactive bowel sounds Palpation: soft Extremity Extremity Narrative: Mild tenderness along the lateral aspect of the right knee. No significant erythema. No palpable cords. Chronic edema noted to the bilateral lower extremities, symmetric. Good distal pulses. Neuro oriented x3 and no sensory deficits noted Sensorium / Orientation: alert Psych mental status grossly normal Skin no rashes or lesions noted MDM MDM MDM Narrative Medical decision making narrative: Right knee x-ray obtained to evaluate for any bony injury. Venous ultrasound of the right lower extremity obtained to evaluate for DVT. Radiography Diagnostic Testing: Clinical Impression(s) from Imaging Studies Knee X-Ray 06/26/23 15:04 IMPRESSION: Degenerative arthrosis. Electronically Signed: Ran Parks MD at 15:31 EDT , Treatment and Re-Evaluation Narrative: Right knee x-ray per my interpretation reveals no evidence of acute bony injury. Radiology interpretation is reviewed and agrees. Patient does have evidence of degenerative arthrosis. 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 Test results are discussed with the patient. Mele wrap was applied to the knee. She has a cane that she is using at home and plans to order a walker. She takes gabapentin at home for pain and was advised that she can also use Tylenol. Return instructions are giv en. Discharge Plan Triage Chief Complaint: Lower Extremity Injury ED Provider: Liset Mao Dx/Rx/DC Orders Clinical Impression: Contusion of right knee Instructions: ED Contusion, Lower Extremity Prescriptions: No Action calcium carbonate 600 mg(1,500 mg)-vitamin D3 800 unit chewable tablet 600 mg- 20 mcg (800 unit) tablet,chewable See Rx Instructions PO DAILY Rx Instructions: 2 tabs orally daily; Zyrtec 10 mg capsule 10 mg PO PRN PRN (Reason: ALLERGIES) cholecalciferol (vitamin D3) 50 mcg (2,000 unit) capsule 2,000 unit PO DAILY (DME) Handicap Placard See Rx Instructions .ROUTE .MEDSUPPLY Qty: 1 0RF Rx Instructions: As directed, length of time 3 years (DME) pen needle, diabetic [Easy Touch] 31 gauge x 5/16 needle See Dose Instructions .ROUTE .MEDSUPPLY Qty: 150 11RF Dose Instruction: As directed Rx Instructions: As directed 4 times daily oxybutynin chloride 10 mg tablet extended release 24hr 10 mg PO DAILY Lantus Solostar U-100 Insulin 100 unit/mL (3 mL) insulin pen 5 unit SC QHS Qty: 3 5RF rosuvastatin 40 mg tablet 40 mg PO QHS Qty: 90 3RF insulin lispro [Humalog Kenny KwikPen U-100] 100 unit/mL insulin pen, half- unit 10.5 unit subcut QAC (DME) comp.stocking,thigh,long,large Misc See Rx Instructions .Route Qty: 2 3RF Rx Instructions: 20 - 30 mmHg selenium sulfide 2.5 % lotion 1 ea TOPICAL PRN PRN (Reason: Skin Cleansing) (DME) OneTouch Ultra Blue Test Strip strip See Dose Instructions .ROUTE .MEDSUPPLY Qty: 270 3RF Dose Instruction: As directed Rx Instructions: Use to check blood glucose 3 times a day hydrocortisone 2.5 % cream 1 applic topical BID PRN (Reason: rash) Qty: 28.35 1RF (DME) FreeStyle Mook 2 [place] Misc See Rx Instructions .ROUTE .MEDSUPPLY Qty: 1 0RF Rx Instructions: As directed (DME) OneTouch Ultra Test Strip See Rx Instructions .Route Qty: 100 5RF Rx Instructions: TID famotidine 20 mg tablet 20 mg PO QHS Qty: 60 2RF omeprazole 40 mg capsule,delayed release(DR/EC) 40 mg PO DAILY Qty: 90 1RF Rx Instructions: Take 30 minutes before breakfast. losartan 50 mg tablet 50 mg PO DAILY Qty: 90 0RF gabapentin [Neurontin] 300 mg capsule 300 mg PO QHS Qty: 90 0RF Primary Care Provider: Kumar Mcguire Referrals: Kumar Mcguire MD [Primary Care Provider] - 1 Week if not improving Disposition Disposition: Home, Self Care
[2023-06-26 15:34] VITALS: BP 131/60; PULSE 75; RESP 18; O2SAT 95
== END 2023-06-26 15:48 | disposition home or self-care (01) ==
LOC: ED 15:43
PROVIDERS: Emergency Provider Emergency Medicine; PCP Internal Medicine; Visit Provider Emergency Medicine
DX: S80.01XA Contusion of right knee, initial encounter (principal); E10.40 Type 1 diabetes mellitus with diabetic neuropathy, unspecified; W19.XXXA Unspecified fall, initial encounter
CPT/HCPCS: 73564; 93971; 99282

== ENCOUNTER → 2023-07-16 | Outpatient (CLI) | payer MEDICARE, OTHER, SELFPAY ==
[2023-07-16 12:28] LABS: Vitamin D,25 Hydroxy 67.2 ng/mL
[2023-07-16 12:35] LABS: ALB/GLOB Ratio 1.1 RATIO (0.9-2.4); AST(SGOT) 20 U/L (15-37); Alanine Aminotransfer ALT/SGPT 19 U/L (13-56); Albumin, Serum 3.5 g/dL (3.2-5.0); Alkaline Phosphatase 55 U/L (45-117); Anion Gap 8 (5-15); BUN 36 mg/dL (7-18); BUN/Creat Ratio 31.6 RATIO (10-20); Calcium,Total 9.1 mg/dL (8.5-10.1); Chloride 108 mmol/L (98-107); Cholesterol 138 mg/dL (200); Creatinine, Serum 1.14 mg/dL (0.55-1.02); EST Glomerular Filtration Rate 49 mL/min (>60); Est Glom Filt Rate - Afr Amer 59 mL/min (>60); Globulin 3.2 g/dL (2.2-4.2); Glucose 152 mg/dL (74-106); High Density Lipoprotein 82 mg/dL; Potassium 4.4 mmol/L (3.5-5.1); Protein, Total 6.7 g/dL (6.4-8.2); Sodium Level 142 mmol/L (136-145); Thyroid Stim Hormone (TSH) 2.72 uIU/mL (0.358-3.74); Triglycerides 40 mg/dL; Very Low Density Lipoprotein 8 mg/dL (5-40)
== END | disposition home or self-care (01) ==
LOC: BIMLAB 08:23
PROVIDERS: PCP Internal Medicine; Referring Provider Nurse Practitioner Family; Visit Provider Nurse Practitioner Family
DX: E10.29 Type 1 diabetes mellitus with other diabetic kidney complication (principal); R80.9 Proteinuria, unspecified; M85.80 Other specified disorders of bone density and structure, unspecified site
CPT/HCPCS: 36415; 80053; 80061; 82306; 84443

== ENCOUNTER → 2023-07-18 | Outpatient (CLI) | payer MEDICARE, OTHER, SELFPAY ==
[2023-07-18 15:38] LABS: Microalbumin:Creatinine Ratio 50.7 mg/g CRE (<30 mg/g CRE)
== END | disposition home or self-care (01) ==
LOC: LABSPEC 13:54
PROVIDERS: PCP Internal Medicine; Referring Provider Nurse Practitioner Family; Visit Provider Nurse Practitioner Family
DX: E10.9 Type 1 diabetes mellitus without complications (principal)
CPT/HCPCS: 82043; 82570

== ENCOUNTER → 2023-08-28 | Outpatient (CLI) | payer MEDICARE, OTHER, SELFPAY ==
--- NOTE | 2023-08-28 13:11 | BI_ITS ---
MAMMOGRAPHY - BILATERAL SCREENING 3-D TOMOSYNTHESIS REASON FOR EXAM: Female, 78 years old. . Routine annual screening mammogram. PERTINENT HISTORY: History of left stereotactic breast biopsy. TECHNIQUE: 2-D mammograms and 3-D Tomosynthesis of the breast (s) were performed. CAD was performed. COMPARISON: July 15, 2019, June 06, 2018 FINDINGS: Heterogeneously dense fibroglandular tissue which may obscure small masses. No dominant masses, suspicious microcalcifications, asymmetry, skin thickening or nipple retraction. BI/SCRN MAMM (CAD)W/MEME BILAT IMPRESSION: No mammographic signs of malignancy. Yearly follow-up bilateral screening mammogram recommended. ASSESSMENT CATEGORY: BIRADS Category 1: Negative. A letter regarding these results will be sent to the patient by the facility within 30 days. FOLLOW UP RECOMMENDATION: Yearly follow up mammogram recommended. (A) Approximately 10% of breast cancers are not detected by mammography. A normal mammogram should not delay biopsy of a clinically suspicious abnormality. Electronically Signed: Jj Campbell MD at 10:38 EST ,
== END | disposition home or self-care (01) ==
LOC: OPBD 13:27
PROVIDERS: PCP Internal Medicine; Referring Provider Internal Medicine; Visit Provider Internal Medicine
DX: Z12.31 Encounter for screening mammogram for malignant neoplasm of breast (principal)
CPT/HCPCS: 77063; 77067

== ENCOUNTER → 2023-10-02 | Outpatient (CLI) | payer MEDICARE, OTHER, SELFPAY ==
--- NOTE | 2023-10-02 10:25 | BD_ITS ---
STUDY: DUAL ENERGY X-RAY ABSORPTIOMETRY / DXA REASON FOR EXAM: Female, 78 years old. M810 TECHNIQUE: Bone Mineral Density (BMD) measurements of lumbar spine and bilateral hips were obtained. COMPARISON: Comparison is made with prior study dated March 23, 2020. FINDINGS: Lumbar Spine (L1-L4): g/cm2 (1.267) / T-score (2.6) / Z-score (5.1) Findings are suggestive of normal bone density with a low fracture risk. Left Femur Total: g/cm2 (0.780) / T-score (-1.3) / Z-score (0.7) Left Femoral Neck: g/cm2 (0.663) / T-score (-1.7) / Z-score (0.6) Right Femur Total: g/cm2 (0.773) / T-score (-1.4) / Z-score (0.6) Right Femoral Neck: g/cm2 (0.667) / T-score (-1.6) / Z-score (0.6) The T-Scores on the most recent prior examination were: Lumbar Spine (L1-L4): There has been worsening of bone density since the previous examination. Left Femur Total: which represents a worsening of 0.2%. Right Femur Total: which represents an improvement of 0.5%. BD/Dexa Bone Density Study IMPRESSION: The patient is considered osteopenic as outlined below according to World Kin Organization (WHO) criteria with a moderate fracture risk. There has been worsening of bone density since the previous examination. Reference Information: The T-score is the number of standard deviations above or below the standard which is normal for young adults at their peak bone mineral density. The World Health Organization (WHO) interprets the T-scores as follows: Above -1 Normal bone density Between -1 and -2.5 Osteopenia Equal to / or below -2.5 Osteoporosis As a practical clinical guideline, osteopenia may be graded as follows: Mild -1 through -1.5 Moderate -1.6 through -2.0 Severe -2.1 through -2.4 The Z-score is the number of standard deviations above or below age-matched controls. A Z-score of less than -1.5 would be considered abnormal. References: 1. NIH Osteoporosis and Related Bone Diseases www osteo.org 2. International Society for Clinical Densitometry www iscd.org 3. National Osteoporosis Foundation www nof.org Electronically Signed: Ran Parks MD at 14:53 EST ,
--- OUTSIDE RECORDS SUMMARY | 2023-10-02 10:54 | XMS RPT_ITS | CCD ---
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 Name Role Phone Stephanypratima TERRANCE, Jenny Ivan Unavailable [phone] DentonMiguel umana William Unavailable Unavailable *SELF, REFERRED Unavailable Unavailable Madison Reyes Unavailable Unavaila ble DentonJosey William Unavailable Unavailable Denton Miguel William Unavailable Unavailable *SELF, REFERRED Unavailable Unavailable Madisno Reyes Unavailable Unavaila ble Unavailable Primary Care Provider Unavailabl e Unavailable Primary Care Provider Unavailabl e FRANCK HALL Referring Unavailable GOLIAS, CHUCHO Attending Unavailable ISABELFRANCK Attending Unavailable GEOFFREY ARECHIGA Attending Unavailable ISABELFRANCK Referring Unavailable ARECHIGAGEOFFREY Referring Unavailable GEOFFREY ARECHIGA Attending Unavailable JAVON TURCIOS Attending Unavailable ISABELFRANCK Referring Unavailable ISABEL, FRANCK Sarmiento Referring Unavailable ISABEL, FRANCK Sarmiento Attending Unavailable ELENO REYNA Attending Unavailable ISABELFRANCK Referring Unavailable ELENO REYNA Referring Unavailable ISABEL, FRANCK Sarmiento Attending Unavailable JAVON TURCIOS Attending Unavailable ISABELFRANCK Referring Unavailable JADENJAVON Attending Unavailable ISABELFRANCK Referring Unavailable GOLIAS, CHUCHO Attending Unavailable ISABEL, FRANCK M Referring Unavailable GOLIAS, CHUCHO Attending Unavailable ISABEL, FRANCK M Referring Unavailable ISABEL, FRANCK M Referring Unavailable GOLIAS, CHUCHO Attending Unavailable ELENO REYNA Referring Unavailable GOLIAS, CHUCHO Attending Unavailable ISABEL, FRANCK M Referring Unavailable GOLIAS, CHUCHO Attending Unavailable ISABEL, FRANCK M Referring Unavailable GOLIAS, CHUCHO Attending Unavailable ISABEL, FRANCK M Referring Unavailable ISABEL, FRANCK Sarimento Referring Unavailable ISABEL, FRANCK Sarmiento Referring Unavailable Tarah Mcguire MDongbe Lance Primary Care Provider [phone] PROVIDER, UNKNOWN Referring Unavailable OLEGHE, EFEWONGBE B Primary Care Unavailable KASANDRA WONG Referring Unavailable OLEGHE, EFEWONGBE B Primary Care Unavailable KASANDRA WONG Attending Unavailable OLEGHE, EFEWONGBE B Primary Care Unavailable OLEGHE, EFEWONGBE B Primary Care Unavailable KASANDRA WONG Attending Unavailable OLEGHE, EFEWONGBE B Referring Unavailable KASANDRA WONG Referring Unavailable KASANDRA WONG Attending Unavailable KASANDRA WONG Admitting Unavailable OLEGHE, EFEWONGBE B Primary Care Unavailable KASANDRA WONG Referring Unavailable OLEMUNIRE, EFEWONGBE B Primary Care Unavailable Allergies Allergy Classification Reported Allergen(s) Allergy Type Date of Onset Reaction(s) Facility (1 source) codeine Drug Allergy 7 [facility] Work Phone: (1 source) penicillin Drug Allergy 7 [facility] Work Phone: (1 source) Sulfonamides (Antibiotic) drug allergy 7 [facility] Work Phone: (20 sources) Acetaminophen / HYDROcodone; Translations: [HYDROCODONE-ACET AMINOPHEN] Drug Allergy 9 Intolerance [facility] (20 sources) Contrast media; Translations: [CONTRAST DYE] Drug Allergy 1 Other: See Comments [facility] (16 sources) Penicillins; Translations: [PENICILLINS] Drug Allergy 9 Rash [facility] (20 sources) Sulfonamides (Antibiotic); Translations: [SULFA (SULFONAMIDE ANTIBIOTICS)] Drug Allergy 9 [facility] (10 sources) Penicillins Drug Allergy 9 [facility] Medications Completed/Discontinued Medications Medication Drug Class(es) Dates Sig (Normalized) Sig (Original) acetaminophen (1 source) 8 HOUR PAIN RELI EF 650 MG CR-TABS as needed ACETAMINOPHEN [id number] Troy Benavides LPN atorvastatin 40 mg oral tablet (20 sources) HMG-CoA Reductase Inhibitor Start: 05-16-2016 End: 07-10-2025 take 1 tablet by mouth once daily atorvastatin (LIPITOR) 40 mg tablet Indications: Hyperlipidemia with target LDL less than 100 Take 1 tablet by mouth once daily. 90 tablet 3 05/16/2016 Active Problems Active Problems Problem Classification Problem Date Documented Da te Episodic/Chronic Cardiac dysrhythmias (20 sources) Atrial paroxysmal tachycardia; Translations: [Supraventricular tachycardia] Onset: 4 08-29-2021 Chronic Diabetes mellitus with complications (3 sources) Type 2 diabetes mellitus; Translations: [Type 2 diabetes mellitus with other specified complication] Onset: 3 03-14-2023 Chronic Diabetes mellitus without complication (20 sources) Type 1 diabetes mellitus without complications; Translations: [Type 1 diabetes mellitus] Onset: 6 11-08-2016 Chronic Disorders of lipid metabolism (20 sources) Hyperlipidemia; Translations: [Hyperlipidemia, unspecified] Onset: 3 11-17-2016 Chronic Esophageal disorders (3 sources) Gastroesophageal reflux disease without esophagitis; Translations: [Gastro-esophageal reflux disease without esophagitis] Onset: 3 03-14-2023 Chronic Osteoarthritis (1 source) Osteoarthritis; Translations: [Polyosteoarthritis, unspecified] 11-08-2016 Chronic Other connective tissue disease (1 source) Nontraumatic complete rupture of rotator cuff of right shoulder; Translations: [Complete rotator cuff tear or rupture of right shoulder, not specified as traumatic] Episodic Other connective tissue disease (1 source) Gluteal tendinitis; Translations: [Gluteal tendinitis, unspecified hip] Episodic Other connective tissue disease (1 source) Nontraumatic rotator cuff tear; Translations: [Unspecified rotator cuff tear or rupture of right shoulder, not specified as traumatic] Episodic Other connective tissue disease (1 source) Bursitis of right shoulder; Translations: [Bursitis of right shoulder] Episodic Other connective tissue disease (1 source) Swelling of lower limb; Translations: [Other specified soft tissue disorders] 03-14-2023 Episodic Other diseases of bladder and urethra (2 sources) Bladder dysfunction; Translations: [Neuromuscular dysfunction of bladder, unspecified] Chronic Other diseases of bladder and urethra (1 source) Neuromuscular dysfunction of bladder, unspecified; Translations: [Bladder dysfunction] Onset: 2 Chronic Other gastrointestinal disorders (1 source) Esophageal dysphagia; Translations: [Other dysphagia] 03-14-2023 Episodic Other non-traumatic joint disorders (5 sources) Shoulder pain; Translations: [Pain in right shoulder] Episodic Other non-traumatic joint disorders (1 source) Pain in right shoulder; Translations: [Right shoulder pain, unspecified chronicity] Onset: 2 Episodic Unclassified (1 source) Screening for osteoporosis ; Translations: [Encounter for screening for osteoporosis] Onset: 7 05-29-2017 Unclassified (1 source) Screening mammography ; Translations: [Encounter for screening mammogram for malignant neoplasm of breast] Onset: 7 05-29-2017 Unclassified (1 source) Screening - health check; Translations: [Encounter for general adult medical examination without abnormal findings] Onset: 7 05-29-2017 Past or Other Problems Problem Classification Problem Date Documented Da te Episodic/Chronic Abdominal hernia (3 sources) Paraesophageal hernia; Translations: [Diaphragmatic hernia without obstruction or gangrene] Onset: 03-14-2023 03-14-2023 Episodic Other aftercare (1 source) snf (current) use of insulin; Translations: [Type 2 diabetes mellitus with other specified complication, with long-term current use of insulin (HCC)] Onset: 03-14-2023 Episodic Other and unspecified benign neoplasm (20 sources) Tubular adenoma of colon; Translations: [Benign neoplasm of colon, unspecified] Onset: 07-26-2015 07-26-2015 Episodic Other connective tissue disease (16 sources) Disorder of rotator cuff; Translations: [Unspecified disorder of synovium and tendon, right shoulder] Onset: 02-10-2022 Episodic Other connective tissue disease (1 source) Unspecified disorder of synovium and tendon, right shoulder; Translations: [Tendinopathy of rotator cuff, right] Onset: 02-23-2022 Episodic Other connective tissue disease (1 source) Other specified soft tissue disorders; Translations: [Swelling of lower extremity] Onset: 03-14-2023 Episodic Other gastrointestinal disorders (2 sources) Other dysphagia; Translations: [Esophageal dysphagia] Onset: 03-14-2023 Episodic Other non-epithelial cancer of skin (20 sources) Basal cell carcinoma of skin; Translations: [Basal cell carcinoma of skin, unspecified] Onset: 08-15-2016 08-15-2016 Episodic Spondylosis; intervertebral disc disorders; other back problems (20 sources) Cervical radiculopathy; Translations: [Radiculopathy, cervical region] Onset: 01-31-2008 Episodic Unclassified (1 source) Body mass index (BMI) 25.0-25.9, adult; Translations: [Body mass index (BMI) 25.0-25.9, adult] Onset: 11-08-2016 11-08-2016 Episodic Results Test Name Value Interpretation Reference Range Facil ity Vital Signs Date Time Vital Sign Value Performing Clinician Facility 08-01-2023 15:11-0500 Body height 161.3 cm Kasandra Wong MD Work Phone: [facility] 08-01-2023 15:11-0500 Body weight 68.49 kg Kasandra Wong MD Work Phone: [facility] 08-01-2023 15:11-0500 Diastolic blood pressure 89 mm[Hg] Kasandra Wong MD Work Phone: [facility] 08-01-2023 15:11-0500 Heart rate 64 /min Kasandra Wong MD Work Phone: [facility] 08-01-2023 15:11-0500 Systolic blood pressure 175 mm[Hg] Kasandra Wong MD Work Phone: [facility] 03-14-2023 09:45-0400 Body height 161.3 cm Kasandra Wong MD Work Phone: [facility] 03-14-2023 09:45-0400 Body weight 71.12 kg Kasandra Wong MD Work Phone: [facility] 03-14-2023 09:45-0400 Diastolic blood pressure 82 mm[Hg] Kasandra Wong MD Work Phone: [facility] 03-14-2023 09:45-0400 Heart rate 66 /min Kasandra Wong MD Work Phone: [facility] 03-14-2023 09:45-0400 Systolic blood pressure 163 mm[Hg] Kasandra Wong MD Work Phone: [facility] 01-31-2022 11:40-0400 Body height 161.3 cm Franck Hall DO Work Phone: [facility] 01-31-2022 11:40-0400 Body weight 67.13 kg Franck Hall DO Work Phone: [facility] 01-16-2022 08:15-0400 Body height 161.3 cm Eleno Reyna MD Work Phone: [facility] 01-16-2022 08:15-0400 Body weight 67.59 kg Eleno Reyna MD Work Phone: [facility] 12-13-2021 10:00-0400 Diastolic blood pressure 82 mm[Hg] Chucho Golias PT Work Phone: [facility] 12-13-2021 10:00-0400 Systolic blood pressure 134 mm[Hg] Chucho Golias PT Work Phone: [facility] 12-06-2021 12:31-0400 Body height 160 cm Franck Hall DO Work Phone: [facility] 12-06-2021 12:31-0400 Body weight 66.68 kg Franck Hall DO Work Phone: [facility] 05-29-2017 09:37-0400 BMI (Body Mass Index) 24.71 kg/m2 Jenny Laboy NP [facility] Work Phone: 05-29-2017 09:37-0400 Body Temperature 97.8 [degF] Jenny Laboy NP [facility] Work Phone: 05-29-2017 09:37-0400 BP Diastolic 80 mm[Hg] Jenny Laboy NP [facility] Work Phone: 05-29-2017 09:37-0400 BP Systolic 126 mm[Hg] Jenny Laboy NP [facility] Work Phone: 05-29-2017 09:37-0400 Height 162.56 cm Jenny Laboy NP [facility] Work Phone: 05-29-2017 09:37-0400 Pulse (Heart Rate) 57 /min Jenny Laboy NP [facility] Work Phone: 05-29-2017 09:37-0400 Respiratory Rate 16 /min [facility] Work Phone: 05-29-2017 09:37-0400 Weight 65.32 kg Jenny Laboy NP [facility] Work Phone: 11-08-2016 10:26-0500 Body Temperature 98.1 [degF] Jenny Laboy NP [facility] Work Phone: 11-08-2016 10:26-0500 BSA (Body Surface Area) 1.69 m2 Jenny Laboy NP [facility] Work Phone: 11-08-2016 10:26-0500 Height 160.02 cm Jenny Laboy NP [facility] Work Phone: 11-08-2016 10:26-0500 Weight 65.95 kg Jenny Laboy NP [facility] Work Phone: Encounters Encounter Date Encounter Type Care Provider Facility Start: 08-09-2023 Telephone encounter Kasandra donahue MD Work Phone: [facility] Procedures Date Procedure Procedure Detail Performing Clinician Start: 06-06-2022 Arthrocentesis aspir &/inj major jt/bursa w/o us Geoffrey Arechiga MD Work Phone: Start: 02-24-2022 End: 02-24-2022 Mri spinal canal cervical w/o contrast elizabethl Franck Hall DO Work Phone: Start: 01-16-2022 Radex shoulder compl ete minimum 2 views Eleno Reyna MD Work Phone: Start: 08-01-2017 End: 08-01-2017 *CMP Complete Metabolic Panel Jenny Love Benoit FORENSIC DOCUMENT EXAMINER Work Phone: Start: 08-01-2017 End: 08-01-2017 Hemoglobin A1c/Hemoglobin.total in Blood Jenny Laboy FORENSIC DOCUMENT EXAMINER Work Phone: Start: 05-29-2017 End: 06-08-2017 DEXA scan Kumar Orellana Work Phone: Start: 05-29-2017 End: 06-08-2017 Follow Up Appt 3 months Kumar summers MD Work Phone: Start: 05-29-2017 End: 06-08-2017 Mammogram, screening Kumar Mcguire MD Work Phone: Start: 05-29-2017 End: 06-08-2017 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 to retail selling floor leader Kumar dillon MD Work Phone: Start: 02-08-2017 End: 05-08-2017 *CMP Complete Metabolic Panel Jenny Laboy FORENSIC DOCUMENT EXAMINER Work Phone: Start: 02-08-2017 End: 05-08-2017 *Microalbumin, Creatine Ratio, rand urine Jenny Laboy FORENSIC DOCUMENT EXAMINER Work Phone: Start: 02-08-2017 End: 05-08-2017 Hemoglobin A1c/Hemoglobin.total in Blood Jenny Laboy FORENSIC DOCUMENT EXAMINER Work Phone: Start: 02-08-2017 End: 05-08-2017 Lipid 1996 panel - Serum or Plasma Jenny Laboy FORENSIC DOCUMENT EXAMINER Work Phone: Start: 11-08-2016 End: 05-08-2017 *CMP Complete Metabolic Panel Jenny Laboy FORENSIC DOCUMENT EXAMINER Work Phone: Start: 11-08-2016 End: 05-08-2017 Hemoglobin A1c/Hemoglobin.total in Blood Jenny Laboy FORENSIC DOCUMENT EXAMINER Work Phone: Start: 11-08-2016 End: 05-08-2017 Lipid 1996 panel - Serum or Plasma Jenny Laboy FORENSIC DOCUMENT EXAMINER Work Phone: Start: 02-21-2016 Adult depression scr eening assessment Franck Hall Work Phone: Plan of Treatment Date Care Activity Detail Author Start: 05-04-2023 Covid-19 Vaccine ( season) Covid-19 Vaccine ( season) [facility] Start: 05-04-2023 Influenza vaccination [facility] Start: 09-03-2022 ADVANCE DIRECTIVE DISCUSSION ADVANCE DIRECTIVE DISCUSSION [facility] Start: 09-03-2022 DEPRESSION ASSESSMENT DEPRESSION ASSESSMENT [facility] Start: 05-04-2022 Influenza vaccination INFLUENZA (#1) [facility] Start: 09-03-2021 ADVANCE DIRECTIVE DISCUSSION ADVANCE DIRECTIVE DISCUSSION [facility] Start: 09-03-2021 DEPRESSION ASSESSMENT DEPRESSION ASSESSMENT [facility] Start: 05-08-2018 Hepatitis B surface antibody level LDL CHOLESTEROL [facility] Start: 02-08-2018 Hepatitis B surface antibody level LDL CHOLESTEROL [facility] Start: 11-06-2017 Hepatitis B screening URINE ALBUMIN:CREATININE RATIO [facility] Start: 11-06-2017 Hepatitis B surface antibody level LDL CHOLESTEROL [facility] Start: 08-29-2017 End: 08-29-2017 Appointment Appointment [facility] Work Phone: Start: 08-23-2017 Hepatitis C antibody, confirmatory test DILATED RETINAL EXAM [facility] Start: 08-15-2017 3 comp foot exam completed DIABETIC FOOT EXAM [facility] Start: 08-08-2017 End: 08-01-2017 *CMP Complete Metabolic Panel *CMP Complete Metabolic Panel [email or web address] Work Phone: Start: 08-08-2017 End: 08-01-2017 Hemoglobin A1c/Hemoglobin.total mass fraction (Bld) *HgA1C [facility] Work Phone: Start: 08-07-2017 End: 08-07-2017 Appointment Appointment [facility] Work Phone: Start: 05-29-2017 End: 06-08-2017 DEXA scan DEXA scan [facility] Work Phone: Start: 05-29-2017 End: 06-08-2017 Follow Up Appt 3 months Follow Up Appt 3 months [email or web address] Work Phone: Start: 05-29-2017 End: 06-08-2017 Mammogram, screening Mammogram, Screening, both breasts [facility] Work Phone: Start: 05-29-2017 End: 06-08-2017 Podiatry Referral Podiatry Referral Nancy Farfan DPM, [facility], [address], [address], [place], [address] [facility] Work Phone: Start: 05-09-2017 Hemoglobin A1c/Hemoglobin.total in Blood HBA1C [facility] Start: 02-20-2017 Adult depression screening assessment DEPRESSION SCREENING [facility] Start: 02-08-2017 End: 05-08-2017 *CMP Complete Metabolic Panel *CMP Complete Metabolic Panel [facility] Work Phone: Start: 02-08-2017 End: 05-08-2017 *Microalbumin, Creatine Ratio, rand urine *Microalbumin, Creatine Ratio, rand urine [facility] Work Phone: Start: 02-08-2017 End: 05-08-2017 Hemoglobin A1c/Hemoglobin.total mass fraction (Bld) *HgA1C [facility] Work Phone: Start: 02-08-2017 End: 05-08-2017 Lipid panel [AGGREGATE] *Lipid Profile [facility] Work Phone: Start: 11-08-2016 End: 05-08-2017 *CMP Complete Metabolic Panel *CMP Complete Metabolic Panel [facility] Work Phone: Start: 11-08-2016 End: 05-08-2017 Hemoglobin A1c/Hemoglobin.total mass fraction (Bld) *HgA1C [facility] Work Phone: Start: 11-08-2016 End: 05-08-2017 Lipid panel [AGGREGATE] *Lipid Profile [facility] Work Phone: Start: 10-30-2016 End: 10-30-2016 *CMP Complete Metabolic Panel *CMP Complete Metabolic Panel [facility] Work Phone: Start: 10-30-2016 End: 10-30-2016 *Microalbumin, Creatine Ratio, rand urine *Microalbumin, Creatine Ratio, rand urine [facility] Work Phone: Start: 10-30-2016 End: 10-30-2016 Hemoglobin A1c/Hemoglobin.total mass fraction (Bld) *HgA1C [facility] Work Phone: Start: 10-30-2016 End: 10-30-2016 Lipid panel [AGGREGATE] *Lipid Profile [facility] Work Phone: Start: 10-29-2010 SHINGRIX VACCINE (1 of 2) SHINGRIX VACCINE (1 of 2) [facility] Start: 10-29-2010 SHINGRIX VACCINE (2 of 3) SHINGRIX VACCINE (2 of 3) [facility] Start: 09-04-2007 Urine microalbumin profile [facility] Start: 2004 Hepatitis B Vaccine (1 of 3 - Risk 3-dose series) Hepatitis B Vaccine (1 of 3 - Risk 3-dose series) [facility] Start: 2004 RSV Vaccine (1 - 1-dose 60+ series) RSV Vaccine (1 - 1-dose 60+ series) [facility] Start: 1962 ANNUAL PCP TEAM CHRONIC DISEASE VISIT ANNUAL PCP TEAM CHRONIC DISEASE VISIT [facility] Start: 1962 HEPATITIS C SCREENING HEPATITIS C SCREENING [facility] End: 03-14-2024 ECG COMPLETE ECG COMPLETE ECG Routine Paraesophageal hernia 1 Occurrences starting 03/14/2023 until 03/14/2024 [facility] Work Phone: Immunizations Immunization Date Immunization Notes Care Provider Fa [facility] 06-13-2023 influenza (aIIV4) vaccine, age 65+ yr, quadrivalent, PF (FLUAD QUAD) Kasandra Wong MD Work Phone: [facility] 06-13-2023 respiratory syncytia l virus (RSV) vaccine, bivalent (ABRYSVO) Kasandra Wong MD Work Phone: [facility] 06-20-2022 influenza (aIIV4) vaccine, age 65+ yr, quadrivalent, PF (FLUAD QUAD) Kasandra Wong MD Work Phone: [facility] 06-20-2022 influenza virus vacc ine, unspecified formulation Kasandra Wong MD Work Phone: [facility] 05-13-2021 influenza (HD-IIV4) vaccine, age 65+ yr, high dose, quadrivalent, PF (FLUZONE HIGH-DOSE) Kasandra Wong MD Work Phone: [facility] 05-19-2020 zoster vaccine recombinant Kasandra Wong MD Work Phone: [facility] 04-28-2020 influenza, injectabl e, quadrivalent, preservative free Kasandra Wong MD Work Phone: [facility] 03-17-2020 zoster vaccine recombinant Kasandra Wong MD Work Phone: [facility] 06-18-2019 Influenza, injectabl e, Madin Princess Canine Kidney, preservative free, quadrivalent Kasandra Wong MD Work Phone: [facility] 06-19-2018 Seasonal trivalent influenza vaccine, adjuvanted, preservative free Kasandra Wong MD Work Phone: [facility] 06-28-2016 influenza, seasonal, injectable Franckjohnny Hall DO Work Phone: [facility] Work Phone: 02-21-2016 pneumococcal conjuga te vaccine, 13 valent Franck Hall DO Work Phone: [facility] 06-02-2015 influenza, high dose seasonal, preservative-free Franckjohnny Hall DO Work Phone: [facility] 05-28-2013 influenza virus vacc ine, unspecified formulation Franck Isabel DO Work Phone: [facility] 06-18-2012 influenza virus vacc ine, unspecified formulation Franckjohnny Hall DO Work Phone: [facility] 09-03-2010 zoster vaccine, live Franck Hall DO Work Phone: [facility] Work Phone: 05-12-2010 pneumococcal polysaccharide vaccine, 23 valent Franck Hensleyry DO Work Phone: [facility] 08-31-2008 zoster vaccine, live Kasandra Wong MD Work Phone: [facility] 09-03-2007 tetanus and diphther ia toxoids, adsorbed, preservative free, for adult use (2 Lf of tetanus toxoid and 2 Lf of diphtheria toxoid) Franck Isabel DO Work Phone: [facility] Work Phone: Payers Date Payer Category Payer Medicare [id number] 2019 Unknown MMO MMO MEDICARE SUPPLEMENT [id number] 2019-Present [phone] [address] [place] [address] Indemnity [id number] 2019 Unknown MMO MMO MEDICARE SUPPLEMENT [id number] 2019-Present [phone] [address] [place] [address] Indemnity [id number] 2009 Medicare MEDICARE MEDICAR E A AND B [id number] 2009-Present [phone] [place] [address] Medicare [id number] 2009 Medicare MEDICARE MEDICAR E A AND B [id number] 2009-Present [phone] [place] [address] Medicare [id number] 2009 Medicare [id number] Medicare [id number] Medicare [id number] Social History Date Type Detail Facility Start: 08-01-2011 Tobacco smoking stat us SCIS Never smoked tobacco [facility] Start: 12-06-2021 End: 08-01-2023 Alcohol intake Current non-drinker of alcohol (finding) [facility] Start: 1945 Sex Assigned At Not on file [facility] Start: 11-27-2021 End: 05-30-2022 Exposure to SARS-CoV-2 (event) Not sure [facility] Start: 08-01-2011 Tobacco use and exposure Smoke less tobacco non-user [facility] Start: 03-14-2023 End: 08-01-2023 History of Social function [facility] Start: 03-14-2023 End: 08-01-2023 Tobacco use panel [facility] National Score (1-10 0), lower number is lower risk 48 [facility] Medical Equipment Procedure Code Equipment Code Equipment Origin al Text Equipment Identifier Dates Start: 02-20-2012 Clinical Notes 11-09-2015 to 08-09-2023 Telephone Encounter - Caroline Guan RN - 08/09/2023 1:52 PM Caroline Solorzano RN - 08/01/2023 4:17 PM Kasandra Corley MD - 08/01/2023 3:08 PM Caroline Solorzano RN - 03/14/2023 11:17 AM EDT Note Date & Type Note Facility 08-09-2023 Miscellaneous Notes Patient called today and informed me she would like to schedule surgery. I informed her that we will need to set her up for [facility] and an appointment to consent for surgery with Dr. Wong. Patient agreed but asked if the appointments could be scheduled before 3 pm as neither she or her friend drive in the dark and she lives an hour away. I told her I understood and to expect a call from Dr. Wong's staff. Caroline Guan RN documented in this encounter [facility] 08-01-2023 Note HNO ID: [id number] Author: Caroline Guan RN Service: ? Author Type: Nurse Clinician Type: Progress Notes Filed: 08/01/2023 4:19 PM Note Text: Patient given folder with written information about laparoscopic hiatal hernia repair with fundoplication, including the pre-op instructions, what to expect in the hospital, pre- and post-op diet and discharge instructions. I verbally discussed and reviewed all the information with the patient. All of patient's questions were answered. Patient has my contact information if she has questions prior to surgery. 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 Caroline Guan RN [facility] 08-01-2023 Note HNO ID: [id number] Author: Kasandra Wong MD Service: ? Author Type: Physician Type: Progress Notes Filed: 08/01/2023 3:57 PM Note Text: SURGICAL SERVICES HISTORY AND PHYSICAL EXAMINATION SERVICE DATE: 08/01/2023 SERVICE TIME: 3:15 PM PRIMARY CARE PHYSICIAN: Kumar Mcguire MD SUBJECTIVE CHIEF COMPLAINT: hernia HISTORY OF PRESENT ILLNESS: Ms. Batista is a 78 year old female with a PMH of anemia, type 2 DM with diabetic retinopathy (dx 11 yrs ago; Lantus, lisporo; A1c <7), HLD, paraesophageal hernia, hx of gallstone pancreatitis, and GERD who presents for follow up after recent additional testing. She endorses overall doing well. She feels as though the omeprazole is controlling her symptoms very well. She no longer has indigestion with this medication. She rarely use the famotidine - only takes if she is going to eat chili or something spicy. Her swallowing/dysphagia has improved since she has changed the way she eats - no longer eating as much, not as fast, and chewing her food better. She overall feels very good. She is on the fence about surgery and is not certain if she wishes to have surgery, and today had a lot of questions and concerns. Workup: - CXR (03/14/23): Large hiatal hernia - EKG (04/05/23): NSR - UGI (06/11/23): Large, fixed type III hiatal hernia. Small volume, slow clearing spontaneous gastroesophageal reflux to the level of the thoracic inlet. Mild esophageal dysmotility. - Manometry: no CC abnormalities; DCI > 500; 70% swallows intact - EGD (11/10/22; Alondra): large paraesophageal hernia with Hill Grade 4 GEJ (pt brought color pictures/report to clinic today) - Colonoscopy (11/10/22; Alondra): internal hemorrhoids; small sigmoid colon polyp - Pathology: tubular ademona Per my last clinic note: she endorses symptoms of GERD and dysphagia which began at the beginning of this year. She underwent workup with EGD and colonoscopy with Dr. Cantu due to iron deficiency anemia. She was found to have a large paraesophageal hernia and was referred to clinic here today. She was started on Omeprazole 40 mg in AM and Famotidine 20 mg at HS - these medications do control her symptoms, but she continues to have some breakthrough symptoms and has a persistent sensation of a lump in her throat. She describes the sensation of dysphagia if she eats too quickly or takes too large of a bite; she has found that since making major changes in how she eats and not eating as much meat, her symptoms are less severe. She endorses new worsening LE swelling. She is seeing her PCP in the beginning of April. She takes gabapentin 300 mg nightly due to chronic joint and back pain. Social: she denies current use of tobacco, etoh, or illicit drugs; she has no exposure to second hand smoke. She has a Stanley Retriever named farshad and many cats PSHx: CTR, breast bx, lap CCx, total knee replacement, left PAST MEDICAL HISTORY: PAST MEDICAL HISTORY Diagnosis Date Acute gastritis without mention of hemorrhage 09/12/2011 Anemia 09/08/2011 BCC (basal cell carcinoma of skin) 08/15/2016 Benign neoplasm of colon 09/12/2011 Diabetic retinopathy associated with type 1 diabetes mellitus (HCC) Diverticulosis of colon (without mention of hemorrhage) Gait abnormality 07/21/2009 Hiatal hernia 09/12/2011 Internal hemorrhoids without mention of complication Irregular heartbeat Obesity Pancreatitis 1994 gallstone Personal history of colonic polyps Stenosis of lumbosacral spine Tubular adenoma of colon 09/05/2006 09/12/11 PAST SURGICAL HISTORY: PAST SURGICAL HISTORY Procedure Laterality Date BLEPHAROPLASTY EXTENSIVE Bilateral 2005 BREAST BIOPSY Left 1995 CARPAL TUNNEL Bilateral 2008 CHOLECYSTECTOMY 1993 COLONOSCOPY 07/19/2010 COLSC FLX W/REMOVAL LESION BY HOT BX FORCEPS 09/12/11` ascending colon, f/u 3 years EGD N/A 09/12/2011 gastritis with erosions, hiatal hernia with erosions ESOPHAGEAL MANOMETRY 04/13/2023 Dr. Wong EXCISION GANGLION WRIST DORSAL/VOLAR PRIMARY Right 08/06/2012 Excision of deep subfascial mass right wrist TONSILLECTOMY PRIMARY/SECONDARY Tonsillectomy TOTAL ABDOMINAL HYSTERECT W/WO RMVL TUBE OVARY 2000 TOTAL KNEE REPLACEMENT Left 2003 FAMILY HISTORY: FAMILY HISTORY Problem Relation Age of Onset Stroke Father COPD Mother nonsmoker. developed cirrhosis from steroids SOCIAL HISTORY: Social History Tobacco Use Smoking status: Never Smokeless tobacco: Never Vaping Use Vaping Use: Never used Substance Use Topics Alcohol use: No Drug use: No MEDICATIONS: Current Outpatient Medications Medication Sig calcium citrate/vitamin D3 (CITRACAL + D ORAL) Take by mouth once daily. omeprazole (PRILOSEC) 40 mg capsule Take 40 mg by mouth once daily. famotidine (PEPCID) 20 mg tablet Take 20 mg by mouth twice daily. rosuvastatin (CRESTOR) 40 mg tablet Take 40 mg by mouth once daily. losartan (COZAAR) (more content not included)... [facility] 08-01-2023 History of Presen t illness Narrative Patient given folder with written information about laparoscopic hiatal hernia repair with fundoplication, including the pre-op instructions, what to expect in the hospital, pre- and post-op diet and discharge instructions. I verbally discussed and reviewed all the information with the patient. All of patient's questions were answered. Patient has my contact information if she has questions prior to surgery. 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 Caroline Guan RN SURGICAL SERVICES HISTORY AND PHYSICAL EXAMINATION SERVICE DATE: 08/01/2023 SERVICE TIME: 3:15 PM PRIMARY CARE PHYSICIAN: Kumar Mcguire MD SUBJECTIVE CHIEF COMPLAINT: hernia HISTORY OF PRESENT ILLNESS: Ms. Batista is a 78 year old female with a PMH of anemia, type 2 DM with diabetic retinopathy (dx 11 yrs ago; Lantus, lisporo; A1c <7), HLD, paraesophageal hernia, hx of gallstone pancreatitis, and GERD who presents for follow up after recent additional testing. She endorses overall doing well. She feels as though the omeprazole is controlling her symptoms very well. She no longer has indigestion with this medication. She rarely use the famotidine - only takes if she is going to eat chili or something spicy. Her swallowing/dysphagia has improved since she has changed the way she eats - no longer eating as much, not as fast, and chewing her food better. She overall feels very good. She is on the fence about surgery and is not certain if she wishes to have surgery, and today had a lot of questions and concerns. Workup: - CXR (03/14/23): Large hiatal hernia - EKG (04/05/23): NSR - UGI (06/11/23): Large, fixed type III hiatal hernia. Small volume, slow clearing spontaneous gastroesophageal reflux to the level of the thoracic inlet. Mild esophageal dysmotility. - Manometry: no CC abnormalities; DCI > 500; 70% swallows intact - EGD (11/10/22; Alondra): large paraesophageal hernia with Hill Grade 4 GEJ (pt brought color pictures/report to clinic today) - Colonoscopy (11/10/22; Alondra): internal hemorrhoids; small sigmoid colon polyp - Pathology: tubular ademona Per my last clinic note: she endorses symptoms of GERD and dysphagia which began at the beginning of this year. She underwent workup with EGD and colonoscopy with Dr. Cantu due to iron deficiency anemia. She was found to have a large paraesophageal hernia and was referred to clinic here today. She was started on Omeprazole 40 mg in AM and Famotidine 20 mg at HS - these medications do control her symptoms, but she continues to have some breakthrough symptoms and has a persistent sensation of a lump in her throat. She describes the sensation of dysphagia if she eats too quickly or takes too large of a bite; she has found that since making major changes in how she eats and not eating as much meat, her symptoms are less severe. She endorses new worsening LE swelling. She is seeing her PCP in the beginning of April. She takes gabapentin 300 mg nightly due to chronic joint and back pain. Social: she denies current use of tobacco, etoh, or illicit drugs; she has no exposure to second hand smoke. She has a Stanley Retriever named farshad and many cats PSHx: CTR, breast bx, lap CCx, total knee replacement, left PAST MEDICAL HISTORY: PAST MEDICAL HISTORY Diagnosis Date Acute gastritis without mention of hemorrhage 09/12/2011 Anemia 09/08/2011 BCC (basal cell carcinoma of skin) 08/15/2016 Benign neoplasm of colon 09/12/2011 Diabetic retinopathy associated with type 1 diabetes mellitus (HCC) Diverticulosis of colon (without mention of hemorrhage) Gait abnormality 07/21/2009 Hiatal hernia 09/12/2011 Internal hemorrhoids without mention of complication Irregular heartbeat Obesity Pancreatitis 1994 gallstone Personal history of colonic polyps Stenosis of lumbosacral spine Tubular adenoma of colon 09/05/2006 09/12/11 PAST SURGICAL HISTORY: PAST SURGICAL HISTORY Procedure Laterality Date BLEPHAROPLASTY EXTENSIVE Bilateral 2005 BREAST BIOPSY Left 1996 CARPAL TUNNEL Bilateral 2008 CHOLECYSTECTOMY 1994 COLONOSCOPY 07/19/2010 COLSC FLX W/REMOVAL LESION BY HOT BX FORCEPS 09/12/11` ascending colon, f/u 3 years EGD N/A 09/12/2011 gastritis with erosions, hiatal hernia with erosions ESOPHAGEAL MANOMETRY 04/13/2023 Dr. Wong EXCISION GANGLION WRIST DORSAL/VOLAR PRIMARY Right 08/06/2012 Excision of deep subfascial mass right wrist TONSILLECTOMY PRIMARY/SECONDARY <AGE 11 1950 Tonsillectomy TOTAL ABDOMINAL HYSTERECT W/WO RMVL TUBE OVARY 2000 TOTAL KNEE REPLACEMENT Left 2003 FAMILY HISTORY: FAMILY HISTORY Problem Relation Age of Onset Stroke Father COPD Mother nonsmoker. developed cirrhosis from steroids SOCIAL HISTORY: Social History Tobacco Use Smoking status: Never Smokeless tobacco: Never Vaping Use Vaping Use: Never used Substance Use Topics Alcohol use: No Drug use: No MEDICATIONS: Current Outpatient Medications Medication Sig calcium citrate/vitamin D3 (CITRACAL + D ORAL) Take by mouth once daily. omeprazole (PRILOSEC) 40 mg capsule Take 40 mg by mouth once daily. famotidine (PEPCID) 20 mg tablet Take 20 mg by mouth twice daily. rosuvastatin (CRESTOR) 40 mg tablet Take 40 mg by mouth once daily. losartan (COZAAR) 50 mg tablet Take 50 mg by mouth once daily. oxybutynin ER (DITROPAN XL) 10 mg 24 hr tablet Take 10 mg by mouth once daily. Insulin Lispro, Human, (HUMALOG KWIKPEN) 100 unit/mL inpn Use 5 units with each meal insulin glargine (LANTUS) 100 unit/mL (3 mL) inpn 10-12 Units daily at bedtime. gabapentin (NEURONTIN) 300 mg capsule Take 1 capsule by mouth daily at bedtime. blood sugar diagnostic (ICAgen ULTRA TEST) test strip Use as instructed. Tests blood sugars 5 times a day. Dx: 250.01. insulin needles, DISPOSABLE, (PEN NEEDLE) 31 gauge x 5/16 ndle Use one needle per dose. 4 per day. Cholecalciferol, Vitamin D3, 1,000 unit cap Take 2 capsules by mouth once daily. Lancets (ONE TOUCH DELICA) lancets Test blood sugar(s) 4 daily. Dx: 250.02. Insulin: Yes desipramine (NORPRAMIN) 50 mg tablet Take 50 mg by mouth once daily. (Patient not taking: Reported on 03/14/2023) ketoconazole (NIZORAL) 2 % shampoo Apply 1 application to affected area once daily as needed. (Patient not taking: Reported on 03/14/2023) cetirizine (ZYRTEC) 10 mg tablet Take 1 tablet by mouth once daily. (Patient not taking: Reported on 03/14/2023) lisinopril (PRINIVIL) 10 mg tablet Take 1 tablet by mouth once daily. (Patient not taking: Reported on 05/05/2022) atorvastatin (LIPITOR) 40 mg tablet Take 1 tablet by mouth once daily. (Patient not taking: Reported on 03/14/2023) No current facility-administered medications for this visit. ALLERGIES: ALLERGIES Allergen Reactions Contrast Dye Other: See Comments Face flushing and redness Penicillins Rash Sulfa (Sulfonamide * Rash Vicodin [Hydrocodon* Intolerance COMPLETE REVIEW OF SYSTEMS: Review of Systems Constitutional: Negative for chills, diaphoresis, fever and malaise/fatigue. HENT: Negative for congestion, hearing loss, nosebleeds, sinus pain, sore throat and tinnitus. Eyes: Negative for blurred vision, double vision, pain and redness. Respiratory: Negative for cough, hemoptysis, sputum production, shortness of breath and wheezing. Cardiovascular: Negative for chest pain, palpitations, orthopnea, leg swelling and PND. Gastrointestinal: Positive for heartburn. Negative for abdominal pain, blood in stool, constipation, diarrhea, nausea and vomiting. Genitourinary: Negative for dysuria, frequency, hematuria and urgency. Musculoskeletal: Positive for back pain and neck pain. Negative for falls, joint pain and myalgias. Skin: Negative for itching and rash. Neurological: Negative for dizziness, speech change, focal weakness, seizures, loss of consciousness, weakness and headaches. Endo/Heme/Allergies: Does not bruise/bleed easily. Psychiatric/Behavioral: Negative for depression, hallucinations, memory loss, substance abuse and suicidal ideas. The patient is not nervous/anxious and does not have insomnia. OBJECTIVE PHYSICAL EXAM: BP 175/89 Pulse 64 Ht 5' 3.5 (1.61m) Wt 151 lb (68.5kg) BMI 26.33 kg/(m^2). Physical Exam Vitals reviewed. Constitutional: Appearance: Normal appearance. HENT: Head: Normocephalic and atraumatic. Nose: Nose normal. Eyes: General: No scleral icterus. Extraocular Movements: Extraocular movements intact. Conjunctiva/sclera: Conjunctivae normal. Pupils: Pupils are equal, round, and reactive to light. Cardiovascular: Rate and Rhythm: Normal rate. Pulmonary: Effort: Pulmonary effort is normal. No respiratory distress. Skin: General: Skin is warm and dry. Coloration: Skin is not jaundiced or pale. Neurological: General: No focal deficit present. Mental Status: She is alert and oriented to person, place, and time. Psychiatric: Mood and Affect: Mood normal. Behavior: Behavior normal. DATA: Diagnostic tests reviewed for today's visit: EMR reviewed Plan ASSESSMENT AND PLAN Tasneem Batista is a 78 year old female with a PMH as noted above who presents with symptomatic Paraesophageal hernia. ASSESSMENT/PLAN: 1. Paraesophageal hernia - ICD9: 553.3, ICD10: K44.9 (primary diagnosis) - today in clinic she and her friend had many questions/concerns. We reviewed all of her recent testing. I analilia multiple pictures for her and reviewed the imaging with them. She is still on the fence about surgery - she is mostly worried about the after care/diet/and caring for her many animals. She was provided the post op folder and she will review this and get back to us regarding her decision. We reviewed the possible risks/complications associated with surgery and her questions were all addressed. Will have her see pre surgical optimization if she elects to pursue surgery 2. Gastroesophageal reflux disease without esophagitis - ICD9: 530.81, ICD10: K21.9 - Discussed lifestyle modifications including losing weight, limiting caffeine, no meals three hours before sleep, and head of bed elevation - Continue treatment with Omeprazole 40 mg daily and Famotidine PRN 3. Hyperlipidemia, unspecified hyperlipidemia type - ICD9: 272.4, ICD10: E78.5 - Continue current medical management 4. Type 2 diabetes mellitus with other specified complication, with long-term current use of insulin (HCC) - ICD9: 250.80, V58.67, ICD10: E11.69, Z79.4 - Continue current medical management Medical Decision Making: Problems: Moderate: 2+ stable chronic illnesses Data: Unique test result(s) reviewed: 3+ Discussed management or test w/ external physician/QHCP/source Risk: Moderate: Drug management Medical Decision Making Level: 4 - Moderate SIGNATURE: Kasandra Wong MD PATIENT NAME: Tasneem Batista DATE: August 01, 2023 TIME: 3:15 PM PAGER/CONTACT #: [id number] documented in this encounter [facility] 07-25-2023 Miscellaneous Notes I called patient to see if she had an appointment with her auto inspector in preparation for surgery. Patient stated she does not have a auto inspector, but her PCP did an EKG on her (available in Epic and is normal). I asked her when she last saw her PCP and Tasneem said on 07/18/23. Patient stated she is not sure she wants surgery and it will depend on how Dr. Wong answers my questions when I come in for my appointment. I encouraged patient to write down her questions so we can get them answered. I told her there is no martínez to decide about surgery. Patient agreed. Clearance letter sent to PCP today. Patient has not been scheduled with surgery optimization clinic. Caroline Guan RN documented in this encounter [facility] 06-11-2023 Note HNO ID: [id number] Author: Darcy Sauer RT(R) Service: Radiology Author Type: Technologist Type: Progress Notes Filed: 06/11/2023 9:06 AM Note Text: Radiology Service Progress Note PATIENT NAME: Tasneem Batista DATE OF SERVICE: June 11, 2023 TIME: 9:06 AM PATIENT IDENTITY VERIFICATION COMPLETED USING TWO (2) IDENTIFIERS: Name and Date of confirmed by patient verbally. FALL SCREENING: Has the patient had 2 falls in the last year or 1 fall with injury or currently using an Ambulatory Assistive Device (Walker, Cane, Wheelchair, Crutches, etc.)? No PATIENT GENDER DATA: Female. status: : No status: NO. PATIENT RELEVANT IMPLANT DATA REVIEWED: Not Applicable RADIOLOGY DEPARTMENT: General X-ray: Exam(s) Completed: GI/ Procedure(s): Upper GI with barium contrast PERIPHERAL IV DATA: Not applicable SIGNED BY: RT Faith(R) June 11, 2023 9:06 AM [facility] 03-14-2023 Note HNO ID: [id number] Author: Caroline Guan RN Service: ? Author Type: Nurse Clinician Type: Progress Notes Filed: 03/14/2023 11:30 AM Note Text: Patient given written information about esophageal manometry and the prep instructions. I verbally discussed and reviewed the information with the patient. All of patient's questions were answered. Patient given folder with written information about laparoscopic Alli fundoplication and hiatal hernia repair, including the pre-op instructions, what to expect in the hospital, pre- and post-op diet and discharge instructions. I verbally discussed and reviewed all the information with the patient and her friend. All of patient's questions were answered. Patient has my contact information if she has questions prior to surgery. Caroline Guan RN [facility] 03-14-2023 Miscellaneous Notes Manometry scheduled for 04/13/23 @ 8:30 am. Prep/instructions given to patient at checkout. Carissa Aponte MA documented in this encounter [facility] 03-14-2023 Miscellaneous Notes Addended by: CARISSA APONTE on: 03/14/2023 12:20 PM Modules accepted: Orders documented in this encounter [facility] 03-14-2023 Note HNO ID: [id number] Author: Kasandra Wong MD Service: ? Author Type: Physician Type: Progress Notes Filed: 03/14/2023 10:40 AM Note Text: SURGICAL SERVICES HISTORY AND PHYSICAL EXAMINATION SERVICE DATE: 03/14/2023 SERVICE TIME: 9:59 AM PRIMARY CARE PHYSICIAN: No primary care provider on file. SUBJECTIVE CHIEF COMPLAINT: hernia HISTORY OF PRESENT ILLNESS: Ms. Batista is a 77 year old female with a PMH of anemia, type 2 DM with diabetic retinopathy (dx 11 yrs ago; Lantus, lisporo; A1c <7), HLD, paraesophageal hernia, hx of gallstone pancreatitis, and GERD who presents for surgical evaluation. Surgical consultation was requested by the patient's referring physician, Dr. Deangelo Cantu. A copy of this consultation note will be provided to the requesting physician(s) by way of shared medical record or letter via [place] mail. Today she endorses symptoms of GERD and dysphagia which began at the beginning of this year. She underwent workup with EGD and colonoscopy with Dr. Cantu due to iron deficiency anemia. She was found to have a large paraesophageal hernia and was referred to clinic here today. She was started on Omeprazole 40 mg in AM and Famotidine 20 mg at HS - these medications do control her symptoms, but she continues to have some breakthrough symptoms and has a persistent sensation of a lump in her throat. She describes the sensation of dysphagia if she eats too quickly or takes too large of a bite; she has found that since making major changes in how she eats and not eating as much meat, her symptoms are less severe. She endorses new worsening LE swelling. She is seeing her PCP in the beginning of April. She takes gabapentin 300 mg nightly due to chronic joint and back pain. Workup: - EGD (11/10/22; Alondra): large paraesophageal hernia with Hill Grade 4 GEJ (pt brought color pictures/report to clinic today) - Colonoscopy (11/10/22; Alondra): internal hemorrhoids; small sigmoid colon polyp - Pathology: tubular ademona Social: she denies current use of tobacco, etoh, or illicit drugs; she has no exposure to second hand smoke. She has a Stanley Retriever named farshad PSHx: CTR, breast bx, lap CCx, total knee replacement, left PAST MEDICAL HISTORY: PAST MEDICAL HISTORY Diagnosis Date Acute gastritis without mention of hemorrhage 09/12/2011 Anemia 09/08/2011 BCC (basal cell carcinoma of skin) 08/15/2016 Benign neoplasm of colon 09/12/2011 Diabetic retinopathy associated with type 1 diabetes mellitus (HCC) Diverticulosis of colon (without mention of hemorrhage) Gait abnormality 07/21/2009 Hiatal hernia 09/12/2011 Internal hemorrhoids without mention of complication Irregular heartbeat Obesity Pancreatitis 1994 gallstone Personal history of colonic polyps Stenosis of lumbosacral spine Tubular adenoma of colon 09/05/2006 09/12/11 PAST SURGICAL HISTORY: PAST SURGICAL HISTORY Procedure Laterality Date BLEPHAROPLASTY EXTENSIVE Bilateral 2005 BREAST BIOPSY Left 1996 CARPAL TUNNEL Bilateral 2008 CHOLECYSTECTOMY 1994 COLONOSCOPY 07/19/2010 COLSC FLX W/REMOVAL LESION BY HOT BX FORCEPS 09/12/11` ascending colon, f/u 3 years EGD N/A 09/12/2011 gastritis with erosions, hiatal hernia with erosions EXCISION GANGLION WRIST DORSAL/VOLAR PRIMARY Right 08/06/2012 Excision of deep subfascial mass right wrist TONSILLECTOMY PRIMARY/SECONDARY Tonsillectomy TOTAL ABDOMINAL HYSTERECT W/WO RMVL TUBE OVARY 2000 TOTAL KNEE REPLACEMENT Left 2003 FAMILY HISTORY: FAMILY HISTORY Problem Relation Age of Onset Stroke Father COPD Mother nonsmoker. developed cirrhosis from steroids SOCIAL HISTORY: Social History Tobacco Use Smoking status: Never Smokeless tobacco: Never Vaping Use Vaping Use: Never used Substance Use Topics Alcohol use: No Drug use: No MEDICATIONS: Current Outpatient Medications Medication Sig calcium citrate/vitamin D3 (CITRACAL + D ORAL) Take by mouth once daily. omeprazole (PRILOSEC) 40 mg capsule Take 40 mg by mouth once daily. famotidine (PEPCID) 20 mg tablet Take 20 mg by mouth twice daily. rosuvastatin (CRESTOR) 40 mg tablet Take 40 mg by mouth once daily. losartan (COZAAR) 50 mg tablet Take 50 mg by mouth once daily. oxybutynin ER (DITROPAN XL) 10 mg 24 hr tablet Take 10 mg by mouth once daily. Insulin Lispro, Human, (HUMALOG KWIKPEN) 100 unit/mL inpn Use 5 units with each meal insulin glargine (LANTUS) 100 unit/mL (3 mL) inpn 10-12 Units daily at bedtime. gabapentin (NEURONTIN) 300 mg capsule Take 1 capsule by mouth daily at bedtime. (Patient taking differently: Take 300 mg by mouth twice daily.) blood sugar diagnostic (ONETOUCH ULTRA TEST) test strip Use as instructed. Tests blood sugars 5 times a day. Dx: 250.01. insulin needles, DISPOSABLE, (PEN NEEDLE) 31 gauge x 5/16 ndle Use one needle per dose. 4 per day. Cholecalciferol, Vitamin D3, 1,000 unit cap Take 2 capsules by renea (more content not included)... [facility] 03-14-2023 History of Presen t illness Narrative Patient given written information about esophageal manometry and the prep instructions. I verbally discussed and reviewed the information with the patient. All of patient's questions were answered. Patient given folder with written information about laparoscopic Alli fundoplication and hiatal hernia repair, including the pre-op instructions, what to expect in the hospital, pre- and post-op diet and discharge instructions. I verbally discussed and reviewed all the information with the patient and her friend. All of patient's questions were answered. Patient has my contact information if she has questions prior to surgery. Caroline Guan RN SURGICAL SERVICES HISTORY AND PHYSICAL EXAMINATION SERVICE DATE: 03/14/2023 SERVICE TIME: 9:59 AM PRIMARY CARE PHYSICIAN: No primary care provider on file. SUBJECTIVE CHIEF COMPLAINT: hernia HISTORY OF PRESENT ILLNESS: Ms. Batista is a 77 year old female with a PMH of anemia, type 2 DM with diabetic retinopathy (dx 11 yrs ago; Lantus, lisporo; A1c <7), HLD, paraesophageal hernia, hx of gallstone pancreatitis, and GERD who presents for surgical evaluation. Surgical consultation was requested by the patient's referring physician, Dr. Deangelo Cantu. A copy of this consultation note will be provided to the requesting physician(s) by way of shared medical record or letter via [place] mail. Today she endorses symptoms of GERD and dysphagia which began at the beginning of this year. She underwent workup with EGD and colonoscopy with Dr. Cantu due to iron deficiency anemia. She was found to have a large paraesophageal hernia and was referred to clinic here today. She was started on Omeprazole 40 mg in AM and Famotidine 20 mg at HS - these medications do control her symptoms, but she continues to have some breakthrough symptoms and has a persistent sensation of a lump in her throat. She describes the sensation of dysphagia if she eats too quickly or takes too large of a bite; she has found that since making major changes in how she eats and not eating as much meat, her symptoms are less severe. She endorses new worsening LE swelling. She is seeing her PCP in the beginning of April. She takes gabapentin 300 mg nightly due to chronic joint and back pain. Workup: - EGD (11/10/22; [facility]): large paraesophageal hernia with Hill Grade 4 GEJ (pt brought color pictures/report to clinic today) - Colonoscopy (11/10/22; [facility]): internal hemorrhoids; small sigmoid colon polyp - Pathology: tubular ademona Social: she denies current use of tobacco, etoh, or illicit drugs; she has no exposure to second hand smoke. She has a Stanley Retriever named farshad PSHx: CTR, breast bx, lap CCx, total knee replacement, left PAST MEDICAL HISTORY: PAST MEDICAL HISTORY Diagnosis Date Acute gastritis without mention of hemorrhage 09/12/2011 Anemia 09/08/2011 BCC (basal cell carcinoma of skin) 08/15/2016 Benign neoplasm of colon 09/12/2011 Diabetic retinopathy associated with type 1 diabetes mellitus (HCC) Diverticulosis of colon (without mention of hemorrhage) Gait abnormality 07/21/2009 Hiatal hernia 09/12/2011 Internal hemorrhoids without mention of complication Irregular heartbeat Obesity Pancreatitis 1994 gallstone Personal history of colonic polyps Stenosis of lumbosacral spine Tubular adenoma of colon 09/05/2006 09/12/11 PAST SURGICAL HISTORY: PAST SURGICAL HISTORY Procedure Laterality Date BLEPHAROPLASTY EXTENSIVE Bilateral 2005 BREAST BIOPSY Left 1995 CARPAL TUNNEL Bilateral 2008 CHOLECYSTECTOMY 1993 COLONOSCOPY 07/19/2010 COLSC FLX W/REMOVAL LESION BY HOT BX FORCEPS 09/12/11` ascending colon, f/u 3 years EGD N/A 09/12/2011 gastritis with erosions, hiatal hernia with erosions EXCISION GANGLION WRIST DORSAL/VOLAR PRIMARY Right 08/06/2012 Excision of deep subfascial mass right wrist TONSILLECTOMY PRIMARY/SECONDARY <AGE 11 1950 Tonsillectomy TOTAL ABDOMINAL HYSTERECT W/WO RMVL TUBE OVARY 1999 TOTAL KNEE REPLACEMENT Left 2003 FAMILY HISTORY: FAMILY HISTORY Problem Relation Age of Onset Stroke Father COPD Mother nonsmoker. developed cirrhosis from steroids SOCIAL HISTORY: Social History Tobacco Use Smoking status: Never Smokeless tobacco: Never Vaping Use Vaping Use: Never used Substance Use Topics Alcohol use: No Drug use: No MEDICATIONS: Current Outpatient Medications Medication Sig calcium citrate/vitamin D3 (CITRACAL + D ORAL) Take by mouth once daily. omeprazole (PRILOSEC) 40 mg capsule Take 40 mg by mouth once daily. famotidine (PEPCID) 20 mg tablet Take 20 mg by mouth twice daily. rosuvastatin (CRESTOR) 40 mg tablet Take 40 mg by mouth once daily. losartan (COZAAR) 50 mg tablet Take 50 mg by mouth once daily. oxybutynin ER (DITROPAN XL) 10 mg 24 hr tablet Take 10 mg by mouth once daily. Insulin Lispro, Human, (HUMALOG KWIKPEN) 100 unit/mL inpn Use 5 units with each meal insulin glargine (LANTUS) 100 unit/mL (3 mL) inpn 10-12 Units daily at bedtime. gabapentin (NEURONTIN) 300 mg capsule Take 1 capsule by mouth daily at bedtime. (Patient taking differently: Take 300 mg by mouth twice daily.) blood sugar diagnostic ([employer]CH ULTRA TEST) test strip Use as instructed. Tests blood sugars 5 times a day. Dx: 250.01. insulin needles, DISPOSABLE, (PEN NEEDLE) 31 gauge x 5/16 ndle Use one needle per dose. 4 per day. Cholecalciferol, Vitamin D3, 1,000 unit cap Take 2 capsules by mouth once daily. Lancets (ONE TOUCH DELICA) lancets Test blood sugar(s) 4 daily. Dx: 250.02. Insulin: Yes desipramine (NORPRAMIN) 50 mg tablet Take 50 mg by mouth once daily. (Patient not taking: Reported on 03/14/2023) ketoconazole (NIZORAL) 2 % shampoo Apply 1 application to affected area once daily as needed. (Patient not taking: Reported on 03/14/2023) cetirizine (ZYRTEC) 10 mg tablet Take 1 tablet by mouth once daily. (Patient not taking: Reported on 03/14/2023) lisinopril (PRINIVIL) 10 mg tablet Take 1 tablet by mouth once daily. (Patient not taking: Reported on 05/05/2022) atorvastatin (LIPITOR) 40 mg tablet Take 1 tablet by mouth once daily. (Patient not taking: Reported on 03/14/2023) No current facility-administered medications for this visit. ALLERGIES: ALLERGIES Allergen Reactions Contrast Dye Other: See Comments Face flushing and redness Penicillins Rash Sulfa (Sulfonamide * Rash Vicodin [Hydrocodon* Intolerance COMPLETE REVIEW OF SYSTEMS: Review of Systems Constitutional: Negative for chills, diaphoresis, fever and malaise/fatigue. HENT: Negative for congestion, hearing loss, nosebleeds, sinus pain, sore throat and tinnitus. Eyes: Negative for blurred vision, double vision, pain and redness. Respiratory: Negative for cough, hemoptysis, sputum production, shortness of breath and wheezing. Cardiovascular: Positive for chest pain (dysphagia) and leg swelling. Negative for palpitations, orthopnea and PND. Gastrointestinal: Positive for heartburn. Negative for abdominal pain, blood in stool, constipation, diarrhea, nausea and vomiting. Genitourinary: Negative for dysuria, frequency, hematuria and urgency. Musculoskeletal: Positive for back pain and neck pain. Negative for falls, joint pain and myalgias. Skin: Negative for itching and rash. Neurological: Negative for dizziness, speech change, focal weakness, seizures, loss of consciousness, weakness and headaches. Endo/Heme/Allergies: Does not bruise/bleed easily. Psychiatric/Behavioral: Negative for depression, hallucinations, memory loss, substance abuse and suicidal ideas. The patient is not nervous/anxious and does not have insomnia. OBJECTIVE PHYSICAL EXAM: BP 163/82 Pulse 66 Ht 5' 3.5 (1.61m) Wt 156 lb 12.8 oz (71.1kg) BMI 27.34 kg/(m^2). Physical Exam Vitals reviewed. Constitutional: Appearance: Normal appearance. HENT: Head: Normocephalic and atraumatic. Nose: Nose normal. Eyes: General: No scleral icterus. Extraocular Movements: Extraocular movements intact. Conjunctiva/sclera: Conjunctivae normal. Pupils: Pupils are equal, round, and reactive to light. Cardiovascular: Rate and Rhythm: Normal rate. Pulmonary: Effort: Pulmonary effort is normal. No respiratory distress. Skin: General: Skin is warm and dry. Coloration: Skin is not jaundiced or pale. Neurological: General: No focal deficit present. Mental Status: She is alert and oriented to person, place, and time. Psychiatric: Behavior: Behavior normal. DATA: Diagnostic tests reviewed for today's visit: EMR and outside records reviewed Plan ASSESSMENT AND PLAN Tasneem Batista is a 77 year old female with a PMH as noted above who presents with a large paraesophageal hernia and medically refractory GERD. 1. Paraesophageal hernia - ICD9: 553.3, ICD10: K44.9 (primary diagnosis) - Today in clinic we discussed the pathophysiology of hiatal hernia, chronic GERD, and the potential medical and surgical approaches to address these issues. I analilia multiple cartoons today to explain the steps of the surgery along with the risks benefits and alternatives. We discussed preoperative preparation, operative steps, operative technique and immediate postoperative instructions including diet and activity/ambulation. Each topic was extensively discussed and multiple questions were answered. Diet modifications were discussed and education materials were given by our nurse coordinator. - We discussed both medical and surgical treatment. Due to medically refractory symptoms of GERD and dysphagia, I am recommending surgical intervention. However, prior to surgery I need her to be fully optimized with the pre-surgical optimization clinic, labs, EKG, CXR, and clearance from PCP and cardiology. Also will obtain further workup with UGI and manometry and then follow up in clinic with me for surgical consenting and surgical date. - ECG COMPLETE - XR CHEST 2V FRONTAL/LAT - CBC + DIFF - BASIC METABOLIC PNL - CONSULT TO [facility] 2. Gastroesophageal reflux disease without esophagitis - ICD9: 530.81, ICD10: K21.9 - Discussed lifestyle modifications including losing weight, limiting caffeine, no meals three hours before sleep, and head of bed elevation - Continue treatment with Omeprazole and Pepcid daily - Setup for Upper GI Series with Follow Through 3. Hyperlipidemia, unspecified hyperlipidemia type - ICD9: 272.4, ICD10: E78.5 - Continue current medical management 4. Esophageal dysphagia - ICD9: 787.29, ICD10: R13.19 - She endorses dysphagia - XR UPPER GI ROUTINE DOUBLE CONTRAST/AIR - MANOMETRY ESOPHAGEAL 5. Swelling of lower extremity - ICD9: 729.81, ICD10: M79.89 - She will need to see her PCP and cardiology prior to surgery with clearances due to the new and worsening lower extremity swelling. 6. Type 2 diabetes mellitus with other specified complication, with long-term current use of insulin (HCC) - ICD9: 250.80, V58.67, ICD10: E11.69, Z79.4 - Continue daily insulin; A1c less than 7 Medical Decision Making: Problems: Moderate: New problem with uncertain prognosis and 2+ stable chronic illnesses Data: Unique test result(s) reviewed: 3+ Unique test(s) ordered: 3+ Discussed management or test w/ external physician/QHCP/source Risk: Moderate: Drug management High: Decision on elective major surgery w/ risk factors Medical Decision Making Level: 5 - High SIGNATURE: Kasandra Wong MD PATIENT NAME: Tasneem Batista DATE: March 14, 2023 TIME: 9:59 AM PAGER/CONTACT #: [id number] documented in this encounter [facility] 06-06-2022 Note HNO ID: [id number] Author: Geoffrey Arechiga MD Service: ? Author Type: Physician Type: Progress Notes Filed: 06/06/2022 12:21 PM Note Text: Document Text Patient Name: Tasneem Batista Attending Physician: GEOFFREY ARECHIGA M.D. Date of Service: 06/06/2022 Patient is seen in today in the [facility]. CHIEF COMPLAINT: Tasneem Batista is here for right shoulder Cortisone injection #1. Today after discussion of risks, benefits, alternatives, and personnel, under sterile condition, she had an injection in the right shoulder with 5 ml of Cortisone mix (4 cc Lidocaine, 1 cc Kenalog 40 mg). At this point, she will follow up with me in 3 months. she is type I diabetic. blood sugars 118 today. Geoffrey Arechiga MD June 06, 2022 12:19 PM Large Joint Arthro/Inj: R shoulder joint Informed Consent Consent Obtained: Verbal [place] Protocol A moment to CARE was completed. SIGN IN Personnel directly involved with the procedure wore the appropriate PPE. Special Equipment: N/A Patient/Surrogate Stated/Verified: Patient name, Date of , Relevant allergies and Intended procedure TIME OUT Intended patient and procedure match the source document(s). Consent documented and matches the intended procedure. Relevant labs, photos, and/or imaging studies have been reviewed. Correct side/site marked and visible. Medications required for procedure verified. No fire risk assessment and interventions applicable. No implant(s) inserted. 06/06/2022 12:20 PM The procedure site was prepped in the usual sterile fashion. Site: R shoulder joint Medications: 40 mg triamcinolone acetonide 40 mg/mL Anesthetics: 4 mL lidocaine (PF) 10 mg/mL (1 %) Outcome: Tolerated well, no immediate complications Post-injection instructions were reviewed with the patient and the patient voiced understanding of these instructions. SIGN OUT No specimen collected. No instruments, equipment or retained foreign bodies applicable. Post-procedure follow-up management communicated and Plan of Care Visit completed when applicable [facility] 06-06-2022 History of Presen t illness Narrative Associated Order(s): Large Joint Arthro/Inj: R shoulder joint Post-Procedure Diagnose(s): Bursitis of right shoulder Document Text Patient Name: Tasneem Batista Attending Physician: GEOFFREY ARECHIGA M.D. Date of Service: 06/06/2022 Patient is seen in today in the [facility]. CHIEF COMPLAINT: Tasneem Batista is here for right shoulder Cortisone injection #1. Today after discussion of risks, benefits, alternatives, and personnel, under sterile condition, she had an injection in the right shoulder with 5 ml of Cortisone mix (4 cc Lidocaine, 1 cc Kenalog 40 mg). At this point, she will follow up with me in 3 months. she is type I diabetic. blood sugars 118 today. Geoffrey Arechiga MD June 06, 2022 12:19 PM Large Joint Arthro/Inj: R shoulder joint Informed Consent Consent Obtained: Verbal [place] Protocol A moment to CARE was completed. SIGN IN Personnel directly involved with the procedure wore the appropriate PPE. Special Equipment: N/A Patient/Surrogate Stated/Verified: Patient name, Date of , Relevant allergies and Intended procedure TIME OUT Intended patient and procedure match the source document(s). Consent documented and matches the intended procedure. Relevant labs, photos, and/or imaging studies have been reviewed. Correct side/site marked and visible. Medications required for procedure verified. No fire risk assessment and interventions applicable. No implant(s) inserted. 06/06/2022 12:20 PM The procedure site was prepped in the usual sterile fashion. Site: R shoulder joint Medications: 40 mg triamcinolone acetonide 40 mg/mL Anesthetics: 4 mL lidocaine (PF) 10 mg/mL (1 %) Outcome: Tolerated well, no immediate complications Post-injection instructions were reviewed with the patient and the patient voiced understanding of these instructions. SIGN OUT No specimen collected. No instruments, equipment or retained foreign bodies applicable. Post-procedure follow-up management communicated and Plan of Care Visit completed when applicable documented in this encounter [facility] 05-30-2022 Note HNO ID: [id number] Author: Geoffrey Arechiga MD Service: ? Author Type: Physician Type: Progress Notes Filed: 06/28/2022 10:40 AM Note Text: CHIEF COMPLAINT: Patient presents with: Right Shoulder - New HISTORY OF PRESENT ILLNESS: Tasneem Batista is a 77 year old female with a history of right shoulder pain for five months. no injury or change in activity. it started hurting with gardening. it hasn't gone away. she did PT. it is worse after PT. he sent her to [facility]. she had an xray. she doesn't want surgery on her shoulder. he had her doing exercises that aggravated her shoulder. she has pain in lateral arm. she compensates with her shoulder. sleeping is ok. pain to reach for something. it takes two hands to get a plate down. she tried voltaren gel. it didn't help. she is TYPE I DIABETIC. SHE IS ON INSULIN. she was diagnosed at 67 yo. PAST MEDICAL HISTORY Diagnosis Date Acute gastritis without mention of hemorrhage 09/12/2011 Anemia 09/08/2011 BCC (basal cell carcinoma of skin) 08/15/2016 Benign neoplasm of colon 09/12/2011 Diabetic retinopathy associated with type 1 diabetes mellitus (HCC) Diverticulosis of colon (without mention of hemorrhage) Gait abnormality 07/21/2009 Hiatal hernia 09/12/2011 Internal hemorrhoids without mention of complication Irregular heartbeat Obesity Pancreatitis 1994 gallstone Personal history of colonic polyps Stenosis of lumbosacral spine PAST SURGICAL HISTORY Procedure Laterality Date ARTHRP KNE CONDYLEANDPLATU MEDIALANDLAT COMPARTMENTS 09/03/2003 Knee replacement, total, left BLEPHAROPLASTY EXTENSIVE 09/03/2004 Bilateral eyes BREAST BIOPSY Left 09/03/1995 CARPAL TUNNEL 09/03/2008 bilateral wrist CHOLECYSTECTOMY 09/03/1993 Cholecystectomy COLONOSCOPY FLX DX W/COLLJ SPEC WHEN PFRMD 07/19/2010 COLSC FLX W/REMOVAL LESION BY HOT BX FORCEPS 09/12/11` ascending colon, f/u 3 years EGD TRANSORAL BIOPSY SINGLE/MULTIPLE 09/12/2011 gastritis with erosions, hiatal hernia with erosions EXCISION GANGLION WRIST DORSAL/VOLAR PRIMARY Right 08/06/2012 Excision of deep subfascial mass right wrist TONSILLECTOMY PRIMARY/SECONDARY Tonsillectomy TOTAL ABDOMINAL HYSTERECT W/WO RMVL TUBE OVARY 09/03/1999 Hysterectomy, [facility] FAMILY HISTORY Problem Relation Age of Onset Stroke Father COPD Mother nonsmoker. developed cirrhosis from steroids ALLERGIES: ALLERGIES Allergen Reactions Contrast Dye Other: See Comments Face flushing and redness Penicillins Rash Sulfa (Sulfonamide * Rash Vicodin [Hydrocodon* Intolerance CURRENT OUTPATIENT MEDICATIONS: Current Outpatient Medications on File Prior to Visit Medication Sig desipramine (NORPRAMIN) 50 mg tablet Take 50 mg by mouth once daily. rosuvastatin (CRESTOR) 40 mg tablet Take 40 mg by mouth once daily. losartan (COZAAR) 50 mg tablet Take 50 mg by mouth once daily. oxybutynin ER (DITROPAN XL) 10 mg 24 hr tablet Take 10 mg by mouth once daily. Insulin Lispro, Human, (HUMALOG KWIKPEN) 100 unit/mL inpn Use 5 units with each meal ketoconazole (NIZORAL) 2 % shampoo Apply 1 application to affected area once daily as needed. cetirizine (ZYRTEC) 10 mg tablet Take 1 tablet by mouth once daily. insulin glargine (LANTUS) 100 unit/mL (3 mL) inpn 10-12 Units daily at bedtime. gabapentin (NEURONTIN) 300 mg capsule Take 1 capsule by mouth daily at bedtime. (Patient taking differently: Take 300 mg by mouth twice daily.) lisinopril (PRINIVIL) 10 mg tablet Take 1 tablet by mouth once daily. (Patient not taking: Reported on 05/05/2022) blood sugar diagnostic ([employer] ULTRA TEST) test strip Use as instructed. Tests blood sugars 5 times a day. Dx: 250.01. atorvastatin (LIPITOR) 40 mg tablet Take 1 tablet by mouth once daily. insulin needles, DISPOSABLE, (PEN NEEDLE) 31 gauge x 5/16 ndle Use one needle per dose. 4 per day. Cholecalciferol, Vitamin D3, 1,000 unit cap Take 2 capsules by mouth once daily. Lancets (ONE TOUCH DELICA) lancets Test blood sugar(s) 4 daily. Dx: 250.02. Insulin: Yes No current facility-administered medications on file prior to visit. REVIEW OF SYSTEMS: GENERAL: no recent illness, unexplained weight loss or weight gain NEUROLOGIC: no numbness, tingling, or weakness except as mentioned in HPI, no known neuro problems or deficits SKIN: No rash or new skin changes and no chronic skin problems RHEUMATOLOGIC: no swollen joints, recurrent tendonopathies, and no known rheum problems PHYSICAL EXAMINATION: right shoulder GENERAL APPEARANCE: Well appearing, in no acute distress, alert and oriented x3. Musculoskeletal/Neurologic: Inspection-Deformity:No., Atrophy:No. Palpation-Tenderness:No. ROM-Cervical Spine:Normal Right shoulder flexion: 170, IR: T10 ER:80 Left shoulder flexion: 180, IR: T10 ER:80 Strength-within normal limits Sensation-normal to light touch Reflexes-N/A Special Tests-Feliciaer/Marie:Positive Spee (more content not included)... [facility] 05-30-2022 History of Presen t illness Narrative CHIEF COMPLAINT: Patient presents with: Right Shoulder - New HISTORY OF PRESENT ILLNESS: Tasneem Batista is a 77 year old female with a history of right shoulder pain for five months. no injury or change in activity. it started hurting with gardening. it hasn't gone away. she did PT. it is worse after PT. he sent her to [facility]. she had an xray. she doesn't want surgery on her shoulder. he had her doing exercises that aggravated her shoulder. she has pain in lateral arm. she compensates with her shoulder. sleeping is ok. pain to reach for something. it takes two hands to get a plate down. she tried voltaren gel. it didn't help. she is TYPE I DIABETIC. SHE IS ON INSULIN. she was diagnosed at 67 yo. PAST MEDICAL HISTORY Diagnosis Date Acute gastritis without mention of hemorrhage 09/12/2011 Anemia 09/08/2011 BCC (basal cell carcinoma of skin) 08/15/2016 Benign neoplasm of colon 09/12/2011 Diabetic retinopathy associated with type 1 diabetes mellitus (HCC) Diverticulosis of colon (without mention of hemorrhage) Gait abnormality 07/21/2009 Hiatal hernia 09/12/2011 Internal hemorrhoids without mention of complication Irregular heartbeat Obesity Pancreatitis 1994 gallstone Personal history of colonic polyps Stenosis of lumbosacral spine PAST SURGICAL HISTORY Procedure Laterality Date ARTHRP KNE CONDYLE&PLATU MEDIAL&LAT COMPARTMENTS 09/03/2003 Knee replacement, total, left BLEPHAROPLASTY EXTENSIVE 09/03/2004 Bilateral eyes BREAST BIOPSY Left 09/03/1995 CARPAL TUNNEL 09/03/2008 bilateral wrist CHOLECYSTECTOMY 09/03/1993 Cholecystectomy COLONOSCOPY FLX DX W/COLLJ SPEC WHEN PFRMD 07/19/2010 COLSC FLX W/REMOVAL LESION BY HOT BX FORCEPS 09/12/11` ascending colon, f/u 3 years EGD TRANSORAL BIOPSY SINGLE/MULTIPLE 09/12/2011 gastritis with erosions, hiatal hernia with erosions EXCISION GANGLION WRIST DORSAL/VOLAR PRIMARY Right 08/06/2012 Excision of deep subfascial mass right wrist TONSILLECTOMY PRIMARY/SECONDARY <AGE 12 09/03/1949 Tonsillectomy TOTAL ABDOMINAL HYSTERECT W/WO RMVL TUBE OVARY 09/03/1999 Hysterectomy, [facility] FAMILY HISTORY Problem Relation Age of Onset Stroke Father COPD Mother nonsmoker. developed cirrhosis from steroids ALLERGIES: ALLERGIES Allergen Reactions Contrast Dye Other: See Comments Face flushing and redness Penicillins Rash Sulfa (Sulfonamide * Rash Vicodin [Hydrocodon* Intolerance CURRENT OUTPATIENT MEDICATIONS: Current Outpatient Medications on File Prior to Visit Medication Sig desipramine (NORPRAMIN) 50 mg tablet Take 50 mg by mouth once daily. rosuvastatin (CRESTOR) 40 mg tablet Take 40 mg by mouth once daily. losartan (COZAAR) 50 mg tablet Take 50 mg by mouth once daily. oxybutynin ER (DITROPAN XL) 10 mg 24 hr tablet Take 10 mg by mouth once daily. Insulin Lispro, Human, (HUMALOG KWIKPEN) 100 unit/mL inpn Use 5 units with each meal ketoconazole (NIZORAL) 2 % shampoo Apply 1 application to affected area once daily as needed. cetirizine (ZYRTEC) 10 mg tablet Take 1 tablet by mouth once daily. insulin glargine (LANTUS) 100 unit/mL (3 mL) inpn 10-12 Units daily at bedtime. gabapentin (NEURONTIN) 300 mg capsule Take 1 capsule by mouth daily at bedtime. (Patient taking differently: Take 300 mg by mouth twice daily.) lisinopril (PRINIVIL) 10 mg tablet Take 1 tablet by mouth once daily. (Patient not taking: Reported on 05/05/2022) blood sugar diagnostic ([employer] ULTRA TEST) test strip Use as instructed. Tests blood sugars 5 times a day. Dx: 250.01. atorvastatin (LIPITOR) 40 mg tablet Take 1 tablet by mouth once daily. insulin needles, DISPOSABLE, (PEN NEEDLE) 31 gauge x 5/16 ndle Use one needle per dose. 4 per day. Cholecalciferol, Vitamin D3, 1,000 unit cap Take 2 capsules by mouth once daily. Lancets (ONE TOUCH DELICA) lancets Test blood sugar(s) 4 daily. Dx: 250.02. Insulin: Yes No current facility-administered medications on file prior to visit. REVIEW OF SYSTEMS: GENERAL: no recent illness, unexplained weight loss or weight gain NEUROLOGIC: no numbness, tingling, or weakness except as mentioned in HPI, no known neuro problems or deficits SKIN: No rash or new skin changes and no chronic skin problems RHEUMATOLOGIC: no swollen joints, recurrent tendonopathies, and no known rheum problems PHYSICAL EXAMINATION: right shoulder GENERAL APPEARANCE: Well appearing, in no acute distress, alert and oriented x3. Musculoskeletal/Neurologic: Inspection-Deformity:No., Atrophy:No. Palpation-Tenderness:No. ROM-Cervical Spine:Normal Right shoulder flexion: 170, IR: T10 ER:80 Left shoulder flexion: 180, IR: T10 ER:80 Strength-within normal limits Sensation-normal to light touch Reflexes-N/A Special Tests-Wyatt/Marie:Positive Speed's Test:Negative Yergeson's Test:Negative Ocampo's Test:Negative Cross Body Adduction:Negative Apprehension:Negative pos markie/ franko. XRAYS: Final results available in epic. My review of xrays with patient in the room shows no acute abnormalities. some elevation of humeral head. right chronic rotator curff arthropathy CLINICAL IMPRESSION: she is type I diabetic. she will f/u when her sugars are lower for cortisone injection right shoulder. RECOMMENDATION/PLAN: Discussed medication dosage, usage, goals of therapy, and side effects. Written instructions (see patient instructions) and verbal health teaching given to patient, patient verbalizes understanding and agrees with treatment plan. Electronically Signed: Geoffrey Arechiga MD May 30, 2022 11:21 AM documented in this encounter [facility] 05-05-2022 Note HNO ID: [id number] Author: Franck Hall, DO Service: ? Author Type: Physician Type: Progress Notes Filed: 05/05/2022 11:30 AM Note Text: CC: Cervical spine pain, right arm/shoulder pain SUBJECTIVE: 77 y/o female with cervical and lumbar spine pain who returns to clinic for follow up. Neck and right arm pain more severe than lumbar spine pain, focus of today's clinic visit is on her neck and arm pain. Patient continues to report right sided neck pain with intermittent radiation down her right arm to her elbow. She completed 6 weeks of physical therapy with some improvement in ROM, however continues to report neck and arm pain. In addition, patient has chronic right shoulder weakness and pain due to chronic right rotator cuff tear. Neck pain rated 3/10 today, described as constant, dull, aching. She has occasional sharp pain that radiates into her right traps/shoulder and down her arm to her elbow. Neck pain worse with cervical range of motion. No numbness/tingling in bilateral arms/hands. Patient also reports bilateral low back pain with intermittent radiation into her left buttock/posterolateral thigh. Pain does not radiate past the knee. 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 PAIN EVALUATION 05/05/2022 0930 Pain Level: 3 Pain Location: -- rt shoulder and rt arm Description: Aching;Dull;Sharp Duration Units: Months Frequency: Continuous neck is cont. shoulder and tricep area intermittent Intervention/Comfort measure: Medication Since last visit: Continues to deny bowel/bladder incontinence, denies fever, denies night pain, denies unintentional weight loss, denies clumsiness of hands or drooping things, denies clumsiness of feet/tripping/falling. Denies any constitutional or myelopathic symptomatology. No interval change in PMHx, PSHx, allergies, FamilyHx or ROS. No interval change in PMHX, PSHX, Allergies, FamHx or ROS PAST MEDICAL HISTORY Diagnosis Date Acute gastritis without mention of hemorrhage 09/12/2011 Anemia 09/08/2011 BCC (basal cell carcinoma of skin) 08/15/2016 Benign neoplasm of colon 09/12/2011 Diabetic retinopathy associated with type 1 diabetes mellitus (HCC) Diverticulosis of colon (without mention of hemorrhage) Gait abnormality 07/21/2009 Hiatal hernia 09/12/2011 Internal hemorrhoids without mention of complication Irregular heartbeat Obesity Pancreatitis 1994 gallstone Personal history of colonic polyps Stenosis of lumbosacral spine PAST SURGICAL HISTORY Procedure Laterality Date ARTHRP KNE CONDYLEANDPLATU MEDIALANDLAT COMPARTMENTS 09/03/2003 Knee replacement, total, left BLEPHAROPLASTY EXTENSIVE 09/03/2004 Bilateral eyes BREAST BIOPSY Left 09/03/1995 CARPAL TUNNEL 09/03/2008 bilateral wrist CHOLECYSTECTOMY 09/03/1993 Cholecystectomy COLONOSCOPY FLX DX W/COLLJ SPEC WHEN PFRMD 07/19/2010 COLSC FLX W/REMOVAL LESION BY HOT BX FORCEPS 09/12/11` ascending colon, f/u 3 years EGD TRANSORAL BIOPSY SINGLE/MULTIPLE 09/12/2011 gastritis with erosions, hiatal hernia with erosions EXCISION GANGLION WRIST DORSAL/VOLAR PRIMARY Right 08/06/2012 Excision of deep subfascial mass right wrist TONSILLECTOMY PRIMARY/SECONDARY Tonsillectomy TOTAL ABDOMINAL HYSTERECT W/WO RMVL TUBE OVARY 09/03/1999 Hysterectomy, LEA OBJECTIVE: Physical Examination: There were no vitals taken for this visit. Gen: Patient is well appearing in no acute distress Head: Normocephalic and atraumatic Heart: Extremities well perfused, no cyanosis/clubbing/edema Lungs: Symmetric chest rise, non labored on room air Abd: Non-distended Neuro: Speech is clear and language is appropriate. AANDOx3 Hand intrinsic atrophy Sensation intact and symmetric to light touch bilateral upper and lower extremities Reflexes diminished bilateral biceps, triceps, wrist extensors Reflexes decreased bilateral medial hamstrings, achilles, patella No clonus with passive ankle DF MSK: Right shoulder abduction weakness, otherwise 5/5 strength bilateral upper extremities 5/5 strength bilateral lower extremities Right cervical paraspinals, trap, shoulder tender to palpation Empty can test positive on right Hawkin's test positive on right Data Review: Imaging independently reviewed with the patient MRI cervical and lumbar spine Cervical spine: Multilevel degenerative changes with resulting spinal canal narrowing most pronounced and moderate severity C5-C6 and mild to moderate severity at C4-C5 and foraminal narrowing most pronounced and severe on the left at C5-C6. Mild cord flattening at C4-C5 and C5-C6 without severe cord compression or intramedullary cord signal abnormality. Lumbar spine: Progression of levoscoliosis and underlying degenerative disc disease, but no substantial progression of spinal canal or neuroforaminal narrowing relative to the 2011 examination within the constrain (more content not included)... [facility] 05-05-2022 History of Presen t illness Narrative Images from the original note were not included. CC: Cervical spine pain, right arm/shoulder pain SUBJECTIVE: 77 y/o female with cervical and lumbar spine pain who returns to clinic for follow up. Neck and right arm pain more severe than lumbar spine pain, focus of today's clinic visit is on her neck and arm pain. Patient continues to report right sided neck pain with intermittent radiation down her right arm to her elbow. She completed 6 weeks of physical therapy with some improvement in ROM, however continues to report neck and arm pain. In addition, patient has chronic right shoulder weakness and pain due to chronic right rotator cuff tear. Neck pain rated 3/10 today, described as constant, dull, aching. She has occasional sharp pain that radiates into her right traps/shoulder and down her arm to her elbow. Neck pain worse with cervical range of motion. No numbness/tingling in bilateral arms/hands. Patient also reports bilateral low back pain with intermittent radiation into her left buttock/posterolateral thigh. Pain does not radiate past the knee. 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 PAIN EVALUATION 05/05/2022 0930 Pain Level: 3 Pain Location: -- rt shoulder and rt arm Description: Aching;Dull;Sharp Duration Units: Months Frequency: Continuous neck is cont. shoulder and tricep area intermittent Intervention/Comfort measure: Medication Since last visit: Continues to deny bowel/bladder incontinence, denies fever, denies night pain, denies unintentional weight loss, denies clumsiness of hands or drooping things, denies clumsiness of feet/tripping/falling. Denies any constitutional or myelopathic symptomatology. No interval change in PMHx, PSHx, allergies, FamilyHx or ROS. No interval change in PMHX, PSHX, Allergies, FamHx or ROS PAST MEDICAL HISTORY Diagnosis Date Acute gastritis without mention of hemorrhage 09/12/2011 Anemia 09/08/2011 BCC (basal cell carcinoma of skin) 08/15/2016 Benign neoplasm of colon 09/12/2011 Diabetic retinopathy associated with type 1 diabetes mellitus (HCC) Diverticulosis of colon (without mention of hemorrhage) Gait abnormality 07/21/2009 Hiatal hernia 09/12/2011 Internal hemorrhoids without mention of complication Irregular heartbeat Obesity Pancreatitis 1994 gallstone Personal history of colonic polyps Stenosis of lumbosacral spine PAST SURGICAL HISTORY Procedure Laterality Date ARTHRP KNE CONDYLE&PLATU MEDIAL&LAT COMPARTMENTS 09/03/2003 Knee replacement, total, left BLEPHAROPLASTY EXTENSIVE 09/03/2004 Bilateral eyes BREAST BIOPSY Left 09/03/1995 CARPAL TUNNEL 09/03/2008 bilateral wrist CHOLECYSTECTOMY 09/03/1993 Cholecystectomy COLONOSCOPY FLX DX W/COLLJ SPEC WHEN PFRMD 07/19/2010 COLSC FLX W/REMOVAL LESION BY HOT BX FORCEPS 09/12/11` ascending colon, f/u 3 years EGD TRANSORAL BIOPSY SINGLE/MULTIPLE 09/12/2011 gastritis with erosions, hiatal hernia with erosions EXCISION GANGLION WRIST DORSAL/VOLAR PRIMARY Right 08/06/2012 Excision of deep subfascial mass right wrist TONSILLECTOMY PRIMARY/SECONDARY <AGE 11 09/03/1949 Tonsillectomy TOTAL ABDOMINAL HYSTERECT W/WO RMVL TUBE OVARY 09/03/1999 Hysterectomy, LEA OBJECTIVE: Physical Examination: There were no vitals taken for this visit. Gen: Patient is well appearing in no acute distress Head: Normocephalic and atraumatic Heart: Extremities well perfused, no cyanosis/clubbing/edema Lungs: Symmetric chest rise, non labored on room air Abd: Non-distended Neuro: Speech is clear and language is appropriate. A&Ox3 Hand intrinsic atrophy Sensation intact and symmetric to light touch bilateral upper and lower extremities Reflexes diminished bilateral biceps, triceps, wrist extensors Reflexes decreased bilateral medial hamstrings, achilles, patella No clonus with passive ankle DF MSK: Right shoulder abduction weakness, otherwise 5/5 strength bilateral upper extremities 5/5 strength bilateral lower extremities Right cervical paraspinals, trap, shoulder tender to palpation Empty can test positive on right Hawkin's test positive on right Data Review: Imaging independently reviewed with the patient MRI cervical and lumbar spine Cervical spine: Multilevel degenerative changes with resulting spinal canal narrowing most pronounced and moderate severity C5-C6 and mild to moderate severity at C4-C5 and foraminal narrowing most pronounced and severe on the left at C5-C6. Mild cord flattening at C4-C5 and C5-C6 without severe cord compression or intramedullary cord signal abnormality. Lumbar spine: Progression of levoscoliosis and underlying degenerative disc disease, but no substantial progression of spinal canal or neuroforaminal narrowing relative to the 2011 examination within the constraints of the acquisition given the degree of spinal curvature. Spinal canal stenosis remains most pronounced and moderate severity at L3-L4, subarticular zone narrowing most pronounced bilaterally at L3-L4 and on the left at L4-L5, and foraminal narrowing most pronounced and severe on the left at L4-L5. ASSESSMENT/PLAN: DIAGNOSIS: M54.2 Cervicalgia (primary encounter diagnosis) M25.511 Right shoulder pain, unspecified chronicity M54.12 Radiculopathy, cervical region M75.101 Nontraumatic tear of right rotator cuff, unspecified tear extent M48.062 Spinal stenosis, lumbar region with neurogenic claudication -Refer to sports medicine for right shoulder steroid injection (Dr. Arechiga) -If right sided neck/shoulder/arm pain continue despite shoulder injection, could consider interlaminar epidural steroid injection for possible C7 radiculopathy -Area of pain is too diffuse at this time to consider cervical facet joint injections -In regards to her low back, if radicular leg pain worsens we could consider lumbar interlaminar epidural steroid injection vs. Surgical referral Armando Weinberg DO Spine Medicine Fellow PGY-5 I examined the patient and discussed case with Armando Weibnerg DO the medical spine fellow. I agree with above diagnosis and recommendations. Discussed with patient. Patient's cervical spine and arm symptoms likely a combination of shoulder issues as well as underlying cervical radiculitis. As above we will schedule patient for evaluation with Dr. Geoffrey Arechiga. In light of patient's diabetes need to be cautious with any steroid injections. Discussed option of additional interventional procedures for the cervical and lumbar spine. For her low back or cervical spine pain could consider facet joint injections and could perform these injections without any steroid if there are significant concerns regarding iatrogenic elevation of blood sugars. Could also consider cervical epidural injection which unfortunately would need to be performed with steroid. Patient wishes to hold off will see sports medicine and contact us in the future. Franck Hall DO documented in this encounter [facility] 03-13-2022 Note HNO ID: [id number] Author: Javon Turcios PT Service: ? Author Type: Physical Therapist Type: Progress Notes Filed: 03/13/2022 12:47 PM Note Text: Episode Visit Count: 4 Therapist That Will Oversee The Plan Of Care: Javon Turcios Start of Care Date: 02/09/22 Onset Date: 12/24/21 Plan of Care Certification Date: 02/09/22 Next Certification Due Date: 04/11/22 REHABILITATION AND SPORTS THERAPY PHYSICAL THERAPY DISCONTINUANCE OF CARE PLAN OF CARE UPDATE: Assessment: Tasneem Batista is discontinued from Physical Therapy services due to goal achievement.. Patient was seen for 4 visits from Start of Care Date: 02/09/22 to 03/13/2022 and treatment included: Therapeutic exercise. Patient has seen shoulder strnegth, range of motion, and functional use of the RUE since starting therapy. She has a great prognosis should she continue her HEP 2-3x/week. Goals updated on 03/13/2022. Goals for Episode of Care: created on 02/09/22 through 04/12/22 [place] in home exercise program. Met Patient will decrease pain rating by 2 points to meet minimal clinical important difference for numeric pain rating scale. Met Patient will increase active ROM of R shoulder to WNL with no painful arc to allow pt to to improve performance of ADLs. Met to shoulder height Patient will demonstrate increase in R shoulder strength to 4+ to 5/5 during manual muscle testing in order to improve function for basic self-care tasks, home management tasks, light functional tasks and prior functional tasks. Met Perform reaching, lifting, ADLs with decreased report of symptoms/pain in 6-8 weeks. Met SUBJECTIVE: Patient Reason for Visit: Overall pt doing much better. She went too hard with Malou last time, as she thought she needed to make her shoulder hurt to get better (explained to pt this was not correct, and to please tell us when she has pain). Pt is now able to groom, bath, and perform all self care acts without pain, she is washing windowns, lifting a coffee cup up to the microwave, and is independent in her exercises.. Pain: Pain Pain Level: 0 Pain Location: Shoulder - Right PROMIS Scales T-scores: mean of general population = 50. 5 points is clinically meaningfully difference Percentiles provide an indication of how the patient's score ranks in relation to the general population. Higher percentile rankings indicate better function/quality of life. 50th percentile is the average of the general population and indicates half of respondents had a worse score. T-scores: mean of general population = 50. 5 points is clinically meaningfully difference Percentiles provide an indication of how the patient's score ranks in relation to the general population. Higher percentile rankings indicate better function/quality of life. 50th percentile is the average of the general population and indicates half of respondents had a worse score. OBJECTIVE MEASURES WITH LEVEL OF FUNCTION: UE AROM R Shoulder Flex: 105 Degrees R Shoulder ABduction: 105 Degrees R Shoulder Internal Rotation (Functional): T6 R Shoulder External Rotation (Functional): T2 UE and Cervical Strength R UE Strength: 4+/5 grossly L UE Strength: 4+/5 grossly TREATMENT: Therapeutic Exercise: 1: Shoulder pulleys into flexion/scaption in pain free range x20 2: *GTB IR 2x10 3: *GTB ER 2x10 4: *Full can 2x10 1# 5: Wax on, wax off 2x10 each way 6: Wall slides 2x10 7: All objective measures obtained Skilled Intervention: Patient was educated in proper exercise technique and purpose for exercises. Skilled judgment was provided in selection of appropriate interventions. Provided written instruction for home exercise program to facilitate proper performance and compliance. Correct performance of therapeutic exercises was facilitated with verbal, visual and tactile cuing. Billing Therapeutic Exercise Treatment Minutes: 31 Total Treatment Time Minutes (timed/untimed): 31 Javon Turcios, PT [facility] 03-13-2022 History of Presen t illness Narrative Episode Visit Count: 4 Therapist That Will Oversee The Plan Of Care: Javon Turcios Start of Care Date: 02/09/22 Onset Date: 12/24/21 Plan of Care Certification Date: 02/09/22 Next Certification Due Date: 04/11/22 REHABILITATION AND SPORTS THERAPY PHYSICAL THERAPY DISCONTINUANCE OF CARE PLAN OF CARE UPDATE: Assessment: Tasneem Batista is discontinued from Physical Therapy services due to goal achievement.. Patient was seen for 4 visits from Start of Care Date: 02/09/22 to 03/13/2022 and treatment included: Therapeutic exercise. Patient has seen shoulder strnegth, range of motion, and functional use of the RUE since starting therapy. She has a great prognosis should she continue her HEP 2-3x/week. Goals updated on 03/13/2022. Goals for Episode of Care: created on 02/09/22 through 04/12/22 [place] in home exercise program. Met Patient will decrease pain rating by 2 points to meet minimal clinical important difference for numeric pain rating scale. Met Patient will increase active ROM of R shoulder to WNL with no painful arc to allow pt to to improve performance of ADLs. Met to shoulder height Patient will demonstrate increase in R shoulder strength to 4+ to 5/5 during manual muscle testing in order to improve function for basic self-care tasks, home management tasks, light functional tasks and prior functional tasks. Met Perform reaching, lifting, ADLs with decreased report of symptoms/pain in 6-8 weeks. Met SUBJECTIVE: Patient Reason for Visit: Overall pt doing much better. She went too hard with Malou last time, as she thought she needed to make her shoulder hurt to get better (explained to pt this was not correct, and to please tell us when she has pain). Pt is now able to groom, bath, and perform all self care acts without pain, she is washing windowns, lifting a coffee cup up to the microwave, and is independent in her exercises.. Pain: Pain Pain Level: 0 Pain Location: Shoulder - Right PROMIS Scales T-scores: mean of general population = 50. 5 points is clinically meaningfully difference Percentiles provide an indication of how the patient's score ranks in relation to the general population. Higher percentile rankings indicate better function/quality of life. 50th percentile is the average of the general population and indicates half of respondents had a worse score. T-scores: mean of general population = 50. 5 points is clinically meaningfully difference Percentiles provide an indication of how the patient's score ranks in relation to the general population. Higher percentile rankings indicate better function/quality of life. 50th percentile is the average of the general population and indicates half of respondents had a worse score. OBJECTIVE MEASURES WITH LEVEL OF FUNCTION: UE AROM R Shoulder Flex: 105 Degrees R Shoulder ABduction: 105 Degrees R Shoulder Internal Rotation (Functional): T6 R Shoulder External Rotation (Functional): T2 UE and Cervical Strength R UE Strength: 4+/5 grossly L UE Strength: 4+/5 grossly TREATMENT: Therapeutic Exercise: 1: Shoulder pulleys into flexion/scaption in pain free range x20 2: *GTB IR 2x10 3: *GTB ER 2x10 4: *Full can 2x10 1# 5: Wax on, wax off 2x10 each way 6: Wall slides 2x10 7: All objective measures obtained Skilled Intervention: Patient was educated in proper exercise technique and purpose for exercises. Skilled judgment was provided in selection of appropriate interventions. Provided written instruction for home exercise program to facilitate proper performance and compliance. Correct performance of therapeutic exercises was facilitated with verbal, visual and tactile cuing. Billing Therapeutic Exercise Treatment Minutes: 31 Total Treatment Time Minutes (timed/untimed): 31 Javon Turcios PT documented in this encounter [facility] 02-27-2022 Note HNO ID: [id number] Author: Javon Turcios PT Service: ? Author Type: Physical Therapist Type: Progress Notes Filed: 02/27/2022 2:22 PM Note Text: Episode Visit Count: 3 Therapist That Will Oversee The Plan Of Care: Javon Turcios Start of Care Date: 02/09/22 Onset Date: 12/24/21 Plan of Care Certification Date: 02/09/22 Next Certification Due Date: 04/11/22 Patient Identified by Name and Date of : Yes REHABILITATION AND SPORTS THERAPY PHYSICAL THERAPY TREATMENT NOTE ASSESSMENT: Tasneem Batista tolerated the session with expected muscle soreness. She demonstrated difficulty with right upper trap tightness and fatigue noted with exercises. She has improvements with reaching up to wash her hair.. The patient will continue to benefit from ongoing skilled physical therapy for reassessment by supervising therapist. PLAN FOR NEXT VISIT: POC update SUBJECTIVE: Patient Reason for Visit: Patient reports the right shoulder is feeling better. She reports less pain and is able to reach better. She reports she can reach up and do her hair now with less pain. Pain: Pain Pain Level: 2 Pain Location: Shoulder - Right Description: Aching Frequency: Intermittent;With movement Post Treatment Pain Post Treatment Pain Level: 3 Post Treatment Pain Location: Shoulder - Right Post Treatment Symptoms: feels tired and worked OBJECTIVE MEASURES WITH LEVEL OF FUNCTION: UE AROM R Shoulder Flex: 98 Degrees (pain at end range) TREATMENT: Therapeutic Exercise: 1: Shoulder pulleys Flexion, abduction and scaption 2x10 2: Right shoulder reaching 3 on wall 2x30 seconds (fatigue noted) 3: OTB ER 2x12 4: OTB IR 2x12 5: Full can to tolerated height 2x10 6: Wall slides to tolerated height 2x10 7: Wax on, wax off 2x10 each way 8: *Right UT stretch 3x10 seconds. Skilled Intervention: Patient was educated in proper exercise technique and purpose for exercises. Skilled judgment was provided in selection of appropriate interventions. Correct performance of therapeutic exercises was facilitated with verbal and visual cuing. Billing Therapeutic Exercise Treatment Minutes: 40 Total Treatment Time Minutes (timed/untimed): 40 Malou Bray, EXAMINER RATING CLERK Javon Turcios, PT [facility] 02-27-2022 History of Presen t illness Narrative Episode Visit Count: 3 Therapist That Will Oversee The Plan Of Care: Javon Turcios Start of Care Date: 02/09/22 Onset Date: 12/24/21 Plan of Care Certification Date: 02/09/22 Next Certification Due Date: 04/11/22 Patient Identified by Name and Date of : Yes REHABILITATION AND SPORTS THERAPY PHYSICAL THERAPY TREATMENT NOTE ASSESSMENT: Tasneem Batista tolerated the session with expected muscle soreness. She demonstrated difficulty with right upper trap tightness and fatigue noted with exercises. She has improvements with reaching up to wash her hair.. The patient will continue to benefit from ongoing skilled physical therapy for reassessment by supervising therapist. PLAN FOR NEXT VISIT: POC update SUBJECTIVE: Patient Reason for Visit: Patient reports the right shoulder is feeling better. She reports less pain and is able to reach better. She reports she can reach up and do her hair now with less pain. Pain: Pain Pain Level: 2 Pain Location: Shoulder - Right Description: Aching Frequency: Intermittent;With movement Post Treatment Pain Post Treatment Pain Level: 3 Post Treatment Pain Location: Shoulder - Right Post Treatment Symptoms: feels tired and worked OBJECTIVE MEASURES WITH LEVEL OF FUNCTION: UE AROM R Shoulder Flex: 98 Degrees (pain at end range) TREATMENT: Therapeutic Exercise: 1: Shoulder pulleys Flexion, abduction and scaption 2x10 2: Right shoulder reaching 3 on wall 2x30 seconds (fatigue noted) 3: OTB ER 2x12 4: OTB IR 2x12 5: Full can to tolerated height 2x10 6: Wall slides to tolerated height 2x10 7: Wax on, wax off 2x10 each way 8: *Right UT stretch 3x10 seconds. Skilled Intervention: Patient was educated in proper exercise technique and purpose for exercises. Skilled judgment was provided in selection of appropriate interventions. Correct performance of therapeutic exercises was facilitated with verbal and visual cuing. Billing Therapeutic Exercise Treatment Minutes: 40 Total Treatment Time Minutes (timed/untimed): 40 ENRIQUETA Karimi PT documented in this encounter [facility] 02-24-2022 Note HNO ID: [id number] Author: RT Sharron(R) Service: ? Author Type: Technologist Type: Progress Notes Filed: 02/24/2022 11:38 AM Note Text: Radiology Service Progress Note PATIENT NAME: Tasneem Batista DATE OF SERVICE: February 24, 2022 TIME: 11:37 AM PATIENT IDENTITY VERIFICATION COMPLETED USING TWO (2) IDENTIFIERS: Name and Date of confirmed by patient verbally. FALL SCREENING: Has the patient had 2 falls in the last year or 1 fall with injury or currently using an Ambulatory Assistive Device (Walker, Cane, Wheelchair, Crutches, etc.)? No PATIENT GENDER DATA: Female. status: : No status: NO. PATIENT RELEVANT IMPLANT DATA REVIEWED: Yes RADIOLOGY DEPARTMENT: MR; Exam(s) Completed: Spine: Cervical spine and Lumbar spine PERIPHERAL IV DATA: Not applicable SIGNED BY: RT Sharron(R) February 24, 2022 11:37 AM [facility] 02-24-2022 History of Presen t illness Narrative Radiology Service Progress Note PATIENT NAME: Tasneem Batista DATE OF SERVICE: February 24, 2022 TIME: 11:37 AM PATIENT IDENTITY VERIFICATION COMPLETED USING TWO (2) IDENTIFIERS: Name and Date of confirmed by patient verbally. FALL SCREENING: Has the patient had 2 falls in the last year or 1 fall with injury or currently using an Ambulatory Assistive Device (Walker, Cane, Wheelchair, Crutches, etc.)? No PATIENT GENDER DATA: Female. status: : No status: NO. PATIENT RELEVANT IMPLANT DATA REVIEWED: Yes RADIOLOGY DEPARTMENT: MR; Exam(s) Completed: Spine: Cervical spine and Lumbar spine PERIPHERAL IV DATA: Not applicable SIGNED BY: RT Sharron(R) February 24, 2022 11:37 AM documented in this encounter [facility] 02-23-2022 Note HNO ID: [id number] Author: Javon Turcios PT Service: ? Author Type: Physical Therapist Type: Progress Notes Filed: 02/23/2022 11:29 AM Note Text: Episode Visit Count: 2 Therapist That Will Oversee The Plan Of Care: Javon Turcios Start of Care Date: 02/09/22 Onset Date: 12/24/21 Plan of Care Certification Date: 02/09/22 Next Certification Due Date: 04/11/22 REHABILITATION AND SPORTS THERAPY PHYSICAL THERAPY TREATMENT NOTE ASSESSMENT: Tasneem Batista tolerated the session with fatigue, decreased symptoms and no issues. She demonstrated improvements in shoulder pain and tolerance for shoulder movements. The patient will continue to benefit from ongoing skilled physical therapy to progress toward set goals. PLAN FOR NEXT VISIT: continue exercise progression. May try number touch in back kim if tolerable SUBJECTIVE: Patient Reason for Visit: Reaching out still tough, a little bit better going up. Pain: Pain Pain Level: 3 Pain Location: Shoulder - Right Description: Aching;Sore Frequency: Intermittent;With movement OBJECTIVE MEASURES WITH LEVEL OF FUNCTION: Decreased pain with cuing for proper mechanics today TREATMENT: Therapeutic Exercise: 1: Shoulder pulleys 3x20 2: Shoulder pendulums 3x20 cw/ccw 3: OTB ER 2x10 4: OTB IR 2x10 5: Full can to tolerated height 2x10 6: *Wall slides to tolerated height 2x10 7: *Wax on, wax off 2x10 each way Skilled Intervention: Patient was educated in proper exercise technique and purpose for exercises. Skilled judgment was provided in selection of appropriate interventions. Provided written instruction for home exercise program to facilitate proper performance and compliance. Correct performance of therapeutic exercises was facilitated with verbal, visual and tactile cuing. Patient education as noted. Billing Therapeutic Exercise Treatment Minutes: 39 Total Treatment Time Minutes (timed/untimed): 39 Javon Turcios PT [facility] 02-11-2022 Note HNO ID: [id number] Author: Javon Turcios PT Service: ? Author Type: Physical Therapist Type: Progress Notes Filed: 02/23/2022 10:48 AM Note Text: Episode Visit Count: 1 Therapist That Will Oversee The Plan Of Care: Javon Turcios Start of Care Date: 02/09/22 Onset Date: 12/24/21 Plan of Care Certification Date: 02/09/22 Next Certification Due Date: 04/11/22 Patient Identified by Name and Date of : Yes REHABILITATION AND SPORTS THERAPY PHYSICAL THERAPY EVALUATION PLAN OF CARE: Assessment: Tasneem Batista presents with chief complaint of R shoulder pain that interferes with heavy exertion;physical activities;lifting;recreational activities;reaching behind back;reaching overhead;use hand with arm at shoulder level . She presents with impairments in ADL's, overall function, range of motion and strength. Prognosis for therapy is Good due to: current objective clinical presentation;good overall health status;acuteness of condition;positive past response to therapy;within-session changes;good support system/ coping skills . She will benefit from skilled therapy services to meet the goals established for this plan of care as noted below. Goals for Episode of Care: created on 02/09/22 through 04/12/22 [place] in home exercise program. Patient will decrease pain rating by 2 points to meet minimal clinical important difference for numeric pain rating scale. Patient will increase active ROM of R shoulder to WNL with no painful arc to allow pt to to improve performance of ADLs. Patient will demonstrate increase in R shoulder strength to 4+ to 5/5 during manual muscle testing in order to improve function for basic self-care tasks, home management tasks, light functional tasks and prior functional tasks. Perform reaching, lifting, ADLs with decreased report of symptoms/pain in 6-8 weeks. Planned Interventions, Frequency, and Duration: Current Frequency: 1x/week Duration: 8 weeks Total Number of Visits Planned: 8 Planned Treatment Interventions: Therapeutic exercise (42950);Neuromuscular re-education (25205);Manual therapy (69809);Therapeutic activities (39427);Self-half-way management (76521);Patient/Family/Caregiver Education;Body Mechanics Training PLAN FOR NEXT VISIT: Progress rtc and periscapular strengthening. Manual to upper trap and levator as needed Patient demonstrates good understanding of plan of care and treatment. The above goals and plan of care were discussed and agreed upon by patient/family. SUBJECTIVE: Tasneem Batista is a 76 year old female seen today for R shoulder pain for a few weeks now. Pt just finished her round of PT for her back. Notes reaching, lifting, and general use of the arm at shoulder height hurt the most. Functional Limitations: heavy exertion;physical activities;lifting;recreational activities;reaching behind back;reaching overhead;use hand with arm at shoulder level Intake Information: Prescription present Previous Treatment: Physical Therapy? Pain: Pain Pain Level: 6 Pain Location: Shoulder - Right Description: Sharp;Aching;Sore Frequency: Intermittent;With movement PROMIS Scales T-scores: mean of general population = 50. 5 points is clinically meaningfully difference Percentiles provide an indication of how the patient's score ranks in relation to the general population. Higher percentile rankings indicate better function/quality of life. 50th percentile is the average of the general population and indicates half of respondents had a worse score. T-scores: mean of general population = 50. 5 points is clinically meaningfully difference Percentiles provide an indication of how the patient's score ranks in relation to the general population. Higher percentile rankings indicate better function/quality of life. 50th percentile is the average of the general population and indicates half of respondents had a worse score. OBJECTIVE MEASURES WITH LEVEL OF FUNCTION: UE AROM R UE AROM: Painful arc noted L UE AROM: WNL UE and Cervical Strength R UE Strength: 4/5 grossly L UE Strength: 4+/5 grossly Special Tests - Shoulder Shoulder Special Tests: Marie-Cresencio;Neer;Empty Can Empty Can: Right Negative Marie-Cresencio: Right Positive Neer: Right Positive Education: Education Learning/educational needs: Home exercise program;Plan of Care TREATMENT: PT Treatment Interventions: Therapeutic Exercise Evaluation Therapeutic Exercise: 1: *Shoulder pulleys 3x20 (issued pulleys for HEP) 2: *Shoulder pendulums 3x20 cw/ccw 3: *OTB ER 2x10 4: *OTB IR 2x10 5: *Full can to tolerated height 2x10 (educated on shoulder height max, but stay in pain free range) Skilled Intervention: Patient was educated in proper exercise technique and purpose for exercises. Skilled judgment was provided in selection of appropriate interventions. Provided written instruction for home exercise program to facilit (more content not included)... [facility] 02-10-2022 History of Presen t illness Narrative Episode Visit Count: 1 Therapist That Will Oversee The Plan Of Care: Javon Turcios Start of Care Date: 02/09/22 Onset Date: 08/14/21 Plan of Care Certification Date: 02/09/22 Next Certification Due Date: 04/11/22 Patient Identified by Name and Date of : Yes REHABILITATION AND SPORTS THERAPY PHYSICAL THERAPY EVALUATION PLAN OF CARE: Assessment: Tasneem Batista presents with chief complaint of R shoulder pain that interferes with heavy exertion;physical activities;lifting;recreational activities;reaching behind back;reaching overhead;use hand with arm at shoulder level . She presents with impairments in ADL's, overall function, range of motion and strength. Prognosis for therapy is Good due to: current objective clinical presentation;good overall health status;acuteness of condition;positive past response to therapy;within-session changes;good support system/ coping skills . She will benefit from skilled therapy services to meet the goals established for this plan of care as noted below. Goals for Episode of Care: created on 02/09/22 through 04/12/22 [place] in home exercise program. Patient will decrease pain rating by 2 points to meet minimal clinical important difference for numeric pain rating scale. Patient will increase active ROM of R shoulder to WNL with no painful arc to allow pt to to improve performance of ADLs. Patient will demonstrate increase in R shoulder strength to 4+ to 5/5 during manual muscle testing in order to improve function for basic self-care tasks, home management tasks, light functional tasks and prior functional tasks. Perform reaching, lifting, ADLs with decreased report of symptoms/pain in 6-8 weeks. Planned Interventions, Frequency, and Duration: Current Frequency: 1x/week Duration: 8 weeks Total Number of Visits Planned: 8 Planned Treatment Interventions: Therapeutic exercise (24396);Neuromuscular re-education (22181);Manual therapy (54855);Therapeutic activities (88506);Self-half-way management (53928);Patient/Family/Caregiver Education;Body Mechanics Training PLAN FOR NEXT VISIT: Progress rtc and periscapular strengthening. Manual to upper trap and levator as needed Patient demonstrates good understanding of plan of care and treatment. The above goals and plan of care were discussed and agreed upon by patient/family. SUBJECTIVE: Tasneem Batista is a 76 year old female seen today for R shoulder pain for a few weeks now. Pt just finished her round of PT for her back. Notes reaching, lifting, and general use of the arm at shoulder height hurt the most. Functional Limitations: heavy exertion;physical activities;lifting;recreational activities;reaching behind back;reaching overhead;use hand with arm at shoulder level Intake Information: Prescription present Previous Treatment: Physical Therapy Pain: Pain Pain Level: 6 Pain Location: Shoulder - Right Description: Sharp;Aching;Sore Frequency: Intermittent;With movement PROMIS Scales T-scores: mean of general population = 50. 5 points is clinically meaningfully difference Percentiles provide an indication of how the patient's score ranks in relation to the general population. Higher percentile rankings indicate better function/quality of life. 50th percentile is the average of the general population and indicates half of respondents had a worse score. T-scores: mean of general population = 50. 5 points is clinically meaningfully difference Percentiles provide an indication of how the patient's score ranks in relation to the general population. Higher percentile rankings indicate better function/quality of life. 50th percentile is the average of the general population and indicates half of respondents had a worse score. OBJECTIVE MEASURES WITH LEVEL OF FUNCTION: UE AROM R UE AROM: Painful arc noted L UE AROM: WNL UE and Cervical Strength R UE Strength: 4/5 grossly L UE Strength: 4+/5 grossly Special Tests - Shoulder Shoulder Special Tests: Marie-Cresencio;Neer;Empty Can Empty Can: Right Negative Marie-Cresencio: Right Positive Neer: Right Positive Education: Education Learning/educational needs: Home exercise program;Plan of Care TREATMENT: PT Treatment Interventions: Therapeutic Exercise Evaluation Therapeutic Exercise: 1: *Shoulder pulleys 3x20 (issued pulleys for HEP) 2: *Shoulder pendulums 3x20 cw/ccw 3: *OTB ER 2x10 4: *OTB IR 2x10 5: *Full can to tolerated height 2x10 (educated on shoulder height max, but stay in pain free range) Skilled Intervention: Patient was educated in proper exercise technique and purpose for exercises. Skilled judgment was provided in selection of appropriate interventions. Provided written instruction for home exercise program to facilitate proper performance and compliance. Correct performance of therapeutic exercises was facilitated with verbal, visual and tactile cuing. Billing * Evaluation Low Complexity: 1 Unit Therapeutic Exercise Treatment Minutes: 18 Total Treatment Time Minutes (timed/untimed): 40 Javon Turcios PT documented in this encounter [facility] 01-31-2022 Note HNO ID: [id number] Author: Franck Hall, DO Service: ? Author Type: Physician Type: Progress Notes Filed: 02/07/2022 11:54 PM Note Text: [facility], 2022 CC: lumbar and cervical spine pain with arm and leg symptoms SUBJECTIVE: Patient returns with persistent cervical and lumbar spine pain. She sara completed 7 sessions fo PT over a 6 week time period with slight improvement in ROM but continues to deal with cervical and lumbar spine pain. Has continued with right shoulder and arm pain. PT did not focus on rotator cuff but rather on cervical stabilization exercises and lumbar core strenghtening. Continues to deal with left buttock pain and posterior thigh pain. Continued pain after prolonged sitting going to stand. Since last visit: She continues to deny bowel/bladder incontinence, denies fever, denies night pain, denies unintentional weight loss, denies clumsiness of hands or dropping things, denies clumsiness of feet, tripping or falling. Denies any constitutional or myelopathic symptomatology. No interval change in PMHX, PSHX, Allergies, FamHx or ROS PMH: PAST MEDICAL HISTORY Diagnosis Date - Acute gastritis without mention of hemorrhage 09/12/2011 - Anemia 09/08/2011 - BCC (basal cell carcinoma of skin) 08/15/2016 - Benign neoplasm of colon 09/12/2011 - Diabetic retinopathy associated with type 1 diabetes mellitus (HCC) - Diverticulosis of colon (without mention of hemorrhage) - Gait abnormality 07/21/2009 - Hiatal hernia 09/12/2011 - Internal hemorrhoids without mention of complication - Irregular heartbeat - Obesity - Pancreatitis 1994 gallstone - Personal history of colonic polyps - Stenosis of lumbosacral spine PSH: PAST SURGICAL HISTORY Procedure Laterality Date - ARTHRP KNE CONDYLEANDPLATU MEDIALANDLAT COMPARTMENTS 09/03/2003 Knee replacement, total, left - BLEPHAROPLASTY EXTENSIVE 09/03/2004 Bilateral eyes - BREAST BIOPSY Left 09/03/1995 - CARPAL TUNNEL 09/03/2008 bilateral wrist - CHOLECYSTECTOMY 09/03/1993 Cholecystectomy - COLONOSCOPY FLX DX W/COLLJ SPEC WHEN PFRMD 07/19/2010 - COLSC FLX W/REMOVAL LESION BY HOT BX FORCEPS 09/12/11` ascending colon, f/u 3 years - EGD TRANSORAL BIOPSY SINGLE/MULTIPLE 09/12/2011 gastritis with erosions, hiatal hernia with erosions - EXCISION GANGLION WRIST DORSAL/VOLAR PRIMARY Right 08/06/2012 Excision of deep subfascial mass right wrist - TONSILLECTOMY PRIMARY/SECONDARY Tonsillectomy - TOTAL ABDOMINAL HYSTERECT W/WO RMVL TUBE OVARY 09/03/1999 Hysterectomy, LEA Social history: Social History Tobacco Use - Smoking status: Never Smoker - Smokeless tobacco: Never Used Vaping Use - Vaping Use: Never used Substance Use Topics - Alcohol use: No - Drug use: No Fam history: FAMILY HISTORY Problem Relation Age of Onset - Stroke Father - COPD Mother nonsmoker. developed cirrhosis from steroids Reviewed and updated with patient. ALLERGIES: Contrast Dye, Penicillins, Sulfa (Sulfonamide Antibiotics), and Vicodin [Hydrocodone-Acetaminophen] DATA REVIEW: No additonal imaging reviewed today OBJECTIVE: Vital Signs: Ht 161.3 cm (5' 3.5 ) Wt 67.1 kg (148 lb) BMI 25.81 kg/m? ASSESSMENT: General:Patient in no apparent distress, afebrile, well appearing Lungs:No labored breathing, symetric chest excursion, no tachypnia Heart:No lower limb edema, pulses palpable and symetric dorsalis pedis and radial, no cyanosis Abdominal:Non distended abdomen Neuro:Strength intact bilateral lower limbs Sensation intact bilateral lower limbs Reflexes decreased in the bilateral achilles, patella and medial hamstrings Strength intact in bilateral upper limbs Sensation intact in bilateral upper limbs Reflexes decreased in the bilateral biceps, triceps, wrist extensors Muscular:No tenderness to palpation of bilateral Lumbar paraspinal muscles and Cervical paraspinal muscles, Positve tenderness to palpation of the right lateral deltoid. pain with resisted left shoulder abduction Skin:Head, neck, trunk, and extremities dry, intact and without lesions. DX: M67.911 Tendinopathy of rotator cuff, right (primary encounter diagnosis) M54.2 Cervicalgia M54.12 Radiculopathy, cervical region M76.00 Gluteal tendinitis, unspecified laterality M48.061 Spinal stenosis of lumbar region without neurogenic claudication N31.9 Bladder dysfunction M48.02 Spinal stenosis of cervical region PLAN: 1)Patient has completed PT for cervical and lumbar spine and continues to deal with cervical and lumbar radicular pain complaints. In light of this we will place orders for cervical and lumbar MRIs and will discuss further treatment options when she returns for follow up 2)Will also place orders for additional PT for her underlying rotator cuff pathology. 3) discussed potentially pursuing interventional procedures to address her underlying cervical and (more content not included)... [facility] 01-31-2022 History of Presen t illness Narrative Follow-up Visit [facility] January 31, 2022 CC: lumbar and cervical spine pain with arm and leg symptoms SUBJECTIVE: Patient returns with persistent cervical and lumbar spine pain. She sara completed 7 sessions fo PT over a 6 week time period with slight improvement in ROM but continues to deal with cervical and lumbar spine pain. Has continued with right shoulder and arm pain. PT did not focus on rotator cuff but rather on cervical stabilization exercises and lumbar core strenghtening. Continues to deal with left buttock pain and posterior thigh pain. Continued pain after prolonged sitting going to stand. Since last visit: She continues to deny bowel/bladder incontinence, denies fever, denies night pain, denies unintentional weight loss, denies clumsiness of hands or dropping things, denies clumsiness of feet, tripping or falling. Denies any constitutional or myelopathic symptomatology. No interval change in PMHX, PSHX, Allergies, FamHx or ROS PMH: PAST MEDICAL HISTORY Diagnosis Date Acute gastritis without mention of hemorrhage 09/12/2011 Anemia 09/08/2011 BCC (basal cell carcinoma of skin) 08/15/2016 Benign neoplasm of colon 09/12/2011 Diabetic retinopathy associated with type 1 diabetes mellitus (HCC) Diverticulosis of colon (without mention of hemorrhage) Gait abnormality 07/21/2009 Hiatal hernia 09/12/2011 Internal hemorrhoids without mention of complication Irregular heartbeat Obesity Pancreatitis 1994 gallstone Personal history of colonic polyps Stenosis of lumbosacral spine PSH: PAST SURGICAL HISTORY Procedure Laterality Date ARTHRP KNE CONDYLE&PLATU MEDIAL&LAT COMPARTMENTS 09/03/2003 Knee replacement, total, left BLEPHAROPLASTY EXTENSIVE 09/03/2004 Bilateral eyes BREAST BIOPSY Left 09/03/1995 CARPAL TUNNEL 09/03/2008 bilateral wrist CHOLECYSTECTOMY 09/03/1993 Cholecystectomy COLONOSCOPY FLX DX W/COLLJ SPEC WHEN PFRMD 07/19/2010 COLSC FLX W/REMOVAL LESION BY HOT BX FORCEPS 09/12/11` ascending colon, f/u 3 years EGD TRANSORAL BIOPSY SINGLE/MULTIPLE 09/12/2011 gastritis with erosions, hiatal hernia with erosions EXCISION GANGLION WRIST DORSAL/VOLAR PRIMARY Right 08/06/2012 Excision of deep subfascial mass right wrist TONSILLECTOMY PRIMARY/SECONDARY <AGE 11 09/03/1949 Tonsillectomy TOTAL ABDOMINAL HYSTERECT W/WO RMVL TUBE OVARY 09/03/1999 Hysterectomy, LEA Social history: Social History Tobacco Use Smoking status: Never Smoker Smokeless tobacco: Never Used Vaping Use Vaping Use: Never used Substance Use Topics Alcohol use: No Drug use: No Fam history: FAMILY HISTORY Problem Relation Age of Onset Stroke Father COPD Mother nonsmoker. developed cirrhosis from steroids Reviewed and updated with patient. ALLERGIES: Contrast Dye, Penicillins, Sulfa (Sulfonamide Antibiotics), and Vicodin [Hydrocodone-Acetaminophen] DATA REVIEW: No additonal imaging reviewed today OBJECTIVE: Vital Signs: Ht 161.3 cm (5' 3.5 ) Wt 67.1 kg (148 lb) BMI 25.81 kg/m ASSESSMENT: General:Patient in no apparent distress, afebrile, well appearing Lungs:No labored breathing, symetric chest excursion, no tachypnia Heart:No lower limb edema, pulses palpable and symetric dorsalis pedis and radial, no cyanosis Abdominal:Non distended abdomen Neuro:Strength intact bilateral lower limbs Sensation intact bilateral lower limbs Reflexes decreased in the bilateral achilles, patella and medial hamstrings Strength intact in bilateral upper limbs Sensation intact in bilateral upper limbs Reflexes decreased in the bilateral biceps, triceps, wrist extensors Muscular:No tenderness to palpation of bilateral Lumbar paraspinal muscles and Cervical paraspinal muscles, Positve tenderness to palpation of the right lateral deltoid. pain with resisted left shoulder abduction Skin:Head, neck, trunk, and extremities dry, intact and without lesions. DX: M67.911 Tendinopathy of rotator cuff, right (primary encounter diagnosis) M54.2 Cervicalgia M54.12 Radiculopathy, cervical region M76.00 Gluteal tendinitis, unspecified laterality M48.061 Spinal stenosis of lumbar region without neurogenic claudication N31.9 Bladder dysfunction M48.02 Spinal stenosis of cervical region PLAN: 1)Patient has completed PT for cervical and lumbar spine and continues to deal with cervical and lumbar radicular pain complaints. In light of this we will place orders for cervical and lumbar MRIs and will discuss further treatment options when she returns for follow up 2)Will also place orders for additional PT for her underlying rotator cuff pathology. 3) discussed potentially pursuing interventional procedures to address her underlying cervical and lumbar pain complaints Franck Hall DO, MPH Staff Physician [facility] This document has been created with the use of voice recognition technology. It may contain inaccuracies: misspellings, inaccurate syntax or word sense that escaped review. documented in this encounter [facility] 01-20-2022 Note HNO ID: [id number] Author: Chucho Yuan PT Service: ? 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 [facility] refurbished this pair to original specifications the best they could doing it the [facility] way. Equipment Owned: custom foot orthotics DME Delivery: Pt was educated on the option of having orthotics refurbished as needed in the future as long as shell is performing it's intended function well. Pt was educated on approximate cost of refurbishing orthotics and an approximate time frame when this might be necessary. The fit of orthotics was assessed with pt standing, with and without shoes. The comfort of orthotics was assessed with pt standing and walking with orthotics in shoes. Pt denied any rubbing or pinching and felt that fit of custom orthotics was correct. Contact information for this therapist was provided to patient. Custom biomechanical foot orthotics with serial number: [id number] were issued to patient and proof of receipt form signed by pt and therapist. All specifications for custom foot orthotics can be found in orthotic evaluation visit note. Planned Interventions: Follow up as needed for brace fitting/issues. Billing:[facility]: Orthotics Management and Training (57101): 1:1 time: 20 minutes (1 unit: 8-22 mins) Equipment: [id number] refurbished pair of custom foot orthotics Total time: 20 minutes Chucho Yuan PT [facility] 01-16-2022 Note HNO ID: [id number] Author: Eleno Reyna MD Service: ? Author Type: Physician Type: Progress Notes Filed: 01/16/2022 10:27 AM Note Text: Eleno Reyna MD Department of Orthopaedics Orthopaedics [address] [facility] [address] Dept: [phone] Dept January 16, 2022 Consultation requested by Chucho Yaun PT for an opinion regarding right shoulder pain. My final recommendations will be communicated back to the requesting physician by way of shared Medical record or letter to requesting physician via [place] mail. CHIEF COMPLAINT: New of the Right Shoulder and Referred by Chucho Yuan HPI Patient states she has pain when she raising her arm upward and out. No specific injury. Patient is right hand dominant. She does mcfadden a lot of knitting. Taking Gabapentin for the pain at night and helps her sleep. Has been seeing Chucho in PT for her neck and back pain referred by Dr. Hall. X-rays done today at [facility]. AMB ROOMING INTAKE FLOWSHEET DATA Risk Screening Do you have concerns about personal safety or safety in the home?: No Pain Pain Level: 4 Pain Location: Shoulder-Right Description: Aching Duration Amount of Time: 5 Duration Units: Weeks Frequency: Intermittent (Occurs with upward and out motion) Intervention/Comfort measure: Medication ASSESSMENT: M25.511 Acute pain of right shoulder (primary encounter diagnosis) M75.121 Nontraumatic complete tear of right rotator cuff PLAN: Patient likely has a complete or near complete right rotator cuff chronic. We discussed multiple treatment options. With her insulin dependence, she does not wish to try a oral or injectable steroid quite at this time. We talked about topical Voltaren and continuing her range of motion. Happy to see her again if symptoms do not improve over time. FOLLOW UP INSTRUCTIONS: As above Ms. Tasneem Batista was advised as to contrast therapies and/or to take analgesics/anti-inflammatories as needed and all contraindications were reviewed. OBJECTIVE: Ms. Tasneem Batista is a pleasant 76 year old in no apparent distress. Gen:There were no vitals taken for this visit. nl development, non obese, no deformities ENT: Normocephalic, normal hearing, moist mucosa CV: Pulses:Radial= 2+ and symmetric, capillary refill < 2 secs, no peripheral edema/varicosities Skin: no rash, bruising or lesions. Good turgor. Psych: cooperative and appropriate, alert and oriented x 3, good mood and affect. Musculoskeletal: Difficulty with but forward elevation of the affected side of about 140 degrees. Internal rotation is not quite so bad and she is able to get to the low thoracic area. There is some tenderness over the anterior lateral corner of the shoulder and likely a palpable defect. Weakness on supraspinatus testing. IMAGING: IMPRESSION: Mild glenohumeral osteoarthritis and findings of chronic rotator cuff arthropathy/tearing. Traffic Signal Mechanic: RANDI ? Transcribe Date/Time: Jan 16 2022 ?9:46A Dictated by : MALU TAPIA MD This examination was interpreted and the report reviewed and electronically signed by: MALU TAPIA MD on Jan 16 2022 ?9:48AM ?EST Results-Findings * * *Final Report* * * DATE OF EXAM: Jan 16 2022 ?8:01AM ? WRX ? 5253 ?- ?XR SHLDR >/=3V AP/YADI AP/OTHR RT ?/ PROCEDURE REASON: Right shoulder pain, unspecified chronicity ?? ? * * * * Physician Interpretation * * * * ?EXAMINATION: ?XR SHLDR >/=3V AP/YADI AP/OTHR RT HISTORY: ? chronic right shoulder pain ?Right shoulder pain, unspecified chronicity ? . TECHNIQUE: ?XR SHLDR >/=3V AP/YADI AP/OTHR RT ?? Laterality: ?RIGHT ?? Number of different views (projections): 3 ?? M: ?XB_1 COMPARISON: ?None. RESULT: No acute fracture or dislocation. ?Mild glenohumeral joint space narrowing. ?There is narrowing of the acromiohumeral interval with reactive/cystic changes of the humeral head. ?There is inferior acromial and inferior clavicular spurring. ?Foci of calcification projecting about the humeral head may reflect rotator cuff calcific tendinosis. ?Included right hemithorax is unremarkable. Supporting Subjective Information Below: Past Medical History: PAST MEDICAL HISTORY Diagnosis Date - Acute gastritis without mention of hemorrhage 09/12/2011 - Anemia 09/08/2011 - BCC (basal cell carcinoma of skin) 08/15/2016 - Benign neoplasm of colon 09/12/2011 - Diabetic retinopathy associated with type 1 diabetes mellitus (HCC) - Diverticulosis of colon (without mention of hemorrhage) - Gait abnormality 07/21/2009 - Hiatal hernia 09/12/2011 - Internal hemorrhoids without mention of complication - Irregular heartbeat - Obesity - Pancreatitis 1995 gallstone - Personal history of colonic polyps - Stenosis of lumbosacral spine Past Surgical History: PAST SURGICAL HISTORY Procedure Laterality Date - ARTHRP KNE CONDYLEANDPLATU MEDIALANDLAT COMPARTMENTS 01 (more content not included)... [facility] 01-16-2022 Note HNO ID: [id number] Author: Ina Aldana RT(R) Service: ? Author Type: Technologist Type: Progress Notes Filed: 01/16/2022 8:00 AM Note Text: Radiology Service Progress Note PATIENT NAME: Tasneem Batista DATE OF SERVICE: January 16, 2022 TIME: 7:49 AM PATIENT IDENTITY VERIFICATION COMPLETED USING TWO (2) IDENTIFIERS: Name and Date of confirmed by patient verbally. FALL SCREENING: Has the patient had 2 falls in the last year or 1 fall with injury or currently using an Ambulatory Assistive Device (Walker, Cane, Wheelchair, Crutches, etc.)? No PATIENT GENDER DATA: Female. status: : No status: NO. PATIENT RELEVANT IMPLANT DATA REVIEWED: Not Applicable RADIOLOGY DEPARTMENT: General X-ray: Exam(s) Completed: Upper Extremity X-Ray(s): Shoulder, AP / TRUE AP / AXILLARY right PERIPHERAL IV DATA: Not applicable SIGNED BY: Ina Aldana RT(R) January 16, 2022 7:49 AM [facility] 01-16-2022 History of Presen t illness Narrative Eleno Reyna MD Department of Orthopaedics Orthopaedics [address] [facility] [address] Dept: [phone] Dept January 16, 2022 Consultation requested by Chucho Yuan PT for an opinion regarding right shoulder pain. My final recommendations will be communicated back to the requesting physician by way of shared Medical record or letter to requesting physician via US mail. CHIEF COMPLAINT: New of the Right Shoulder and Referred by Chucho Yuan HPI Patient states she has pain when she raising her arm upward and out. No specific injury. Patient is right hand dominant. She does mcfadden a lot of knitting. Taking Gabapentin for the pain at night and helps her sleep. Has been seeing Chucho in PT for her neck and back pain referred by Dr. Hall. X-rays done today at [facility]. AMB ROOMING INTAKE FLOWSHEET DATA Risk Screening Do you have concerns about personal safety or safety in the home?: No Pain Pain Level: 4 Pain Location: Shoulder-Right Description: Aching Duration Amount of Time: 5 Duration Units: Weeks Frequency: Intermittent (Occurs with upward and out motion) Intervention/Comfort measure: Medication ASSESSMENT: M25.511 Acute pain of right shoulder (primary encounter diagnosis) M75.121 Nontraumatic complete tear of right rotator cuff PLAN: Patient likely has a complete or near complete right rotator cuff chronic. We discussed multiple treatment options. With her insulin dependence, she does not wish to try a oral or injectable steroid quite at this time. We talked about topical Voltaren and continuing her range of motion. Happy to see her again if symptoms do not improve over time. FOLLOW UP INSTRUCTIONS: As above Ms. Tasneem Batista was advised as to contrast therapies and/or to take analgesics/anti-inflammatories as needed and all contraindications were reviewed. OBJECTIVE: Ms. Tasneem Batista is a pleasant 76 year old in no apparent distress. Gen:There were no vitals taken for this visit. nl development, non obese, no deformities ENT: Normocephalic, normal hearing, moist mucosa CV: Pulses:Radial= 2+ and symmetric, capillary refill < 2 secs, no peripheral edema/varicosities Skin: no rash, bruising or lesions. Good turgor. Psych: cooperative and appropriate, alert and oriented x 3, good mood and affect. Musculoskeletal: Difficulty with but forward elevation of the affected side of about 140 degrees. Internal rotation is not quite so bad and she is able to get to the low thoracic area. There is some tenderness over the anterior lateral corner of the shoulder and likely a palpable defect. Weakness on supraspinatus testing. IMAGING: IMPRESSION: Mild glenohumeral osteoarthritis and findings of chronic rotator cuff arthropathy/tearing. Traffic Signal Mechanic: RANDI Transcribe Date/Time: Jan 16 2022 9:46A Dictated by : MALU TAPIA MD This examination was interpreted and the report reviewed and electronically signed by: MALU TAPIA MD on Jan 16 2022 9:48AM EST Results-Findings * * *Final Report* * * DATE OF EXAM: Jan 16 2022 8:01AM WRX [id number] - XR SHLDR >/=3V AP/YADI AP/OTHR RT / PROCEDURE REASON: Right shoulder pain, unspecified chronicity * * * * Physician Interpretation * * * * EXAMINATION: XR SHLDR >/=3V AP/YADI AP/OTHR RT HISTORY: chronic right shoulder pain Right shoulder pain, unspecified chronicity . TECHNIQUE: XR SHLDR >/=3V AP/YADI AP/OTHR RT Laterality: RIGHT Number of different views (projections): 3 M: XB_1 COMPARISON: None. RESULT: No acute fracture or dislocation. Mild glenohumeral joint space narrowing. There is narrowing of the acromiohumeral interval with reactive/cystic changes of the humeral head. There is inferior acromial and inferior clavicular spurring. Foci of calcification projecting about the humeral head may reflect rotator cuff calcific tendinosis. Included right hemithorax is unremarkable. Supporting Subjective Information Below: Past Medical History: PAST MEDICAL HISTORY Diagnosis Date Acute gastritis without mention of hemorrhage 09/12/2011 Anemia 09/08/2011 BCC (basal cell carcinoma of skin) 08/15/2016 Benign neoplasm of colon 09/12/2011 Diabetic retinopathy associated with type 1 diabetes mellitus (HCC) Diverticulosis of colon (without mention of hemorrhage) Gait abnormality 07/21/2009 Hiatal hernia 09/12/2011 Internal hemorrhoids without mention of complication Irregular heartbeat Obesity Pancreatitis 1994 gallstone Personal history of colonic polyps Stenosis of lumbosacral spine Past Surgical History: PAST SURGICAL HISTORY Procedure Laterality Date ARTHRP KNE CONDYLE&PLATU MEDIAL&LAT COMPARTMENTS 09/03/2003 Knee replacement, total, left BLEPHAROPLASTY EXTENSIVE 09/03/2004 Bilateral eyes BREAST BIOPSY Left 09/03/1995 CARPAL TUNNEL 09/03/2008 bilateral wrist CHOLECYSTECTOMY 09/03/1993 Cholecystectomy COLONOSCOPY FLX DX W/COLLJ SPEC WHEN PFRMD 07/19/2010 COLSC FLX W/REMOVAL LESION BY HOT BX FORCEPS 09/12/11` ascending colon, f/u 3 years EGD TRANSORAL BIOPSY SINGLE/MULTIPLE 09/12/2011 gastritis with erosions, hiatal hernia with erosions EXCISION GANGLION WRIST DORSAL/VOLAR PRIMARY Right 08/06/2012 Excision of deep subfascial mass right wrist TONSILLECTOMY PRIMARY/SECONDARY <AGE 12 09/03/1949 Tonsillectomy TOTAL ABDOMINAL HYSTERECT W/WO RMVL TUBE OVARY 09/03/1999 Hysterectomy, LEA Family History: FAMILY HISTORY Problem Relation Age of Onset Stroke Father COPD Mother nonsmoker. developed cirrhosis from steroids Social History: Social History Tobacco Use Smoking status: Never Smoker Smokeless tobacco: Never Used Vaping Use Vaping Use: Never used Substance Use Topics Alcohol use: No Drug use: No Medications: Current Outpatient Medications Medication Sig rosuvastatin (CRESTOR) 40 mg tablet Take 40 mg by mouth once daily. losartan (COZAAR) 50 mg tablet Take 50 mg by mouth once daily. oxybutynin ER (DITROPAN XL) 10 mg 24 hr tablet Take 10 mg by mouth once daily. Insulin Lispro, Human, (HUMALOG KWIKPEN) 100 unit/mL inpn Use 5 units with each meal ketoconazole (NIZORAL) 2 % shampoo Apply 1 application to affected area once daily as needed. cetirizine (ZYRTEC) 10 mg tablet Take 1 tablet by mouth once daily. insulin glargine (LANTUS) 100 unit/mL (3 mL) inpn 10-12 Units daily at bedtime. gabapentin (NEURONTIN) 300 mg capsule Take 1 capsule by mouth daily at bedtime. lisinopril (PRINIVIL) 10 mg tablet Take 1 tablet by mouth once daily. blood sugar diagnostic (ONETOUCH ULTRA TEST) test strip Use as instructed. Tests blood sugars 5 times a day. Dx: 250.01. insulin needles, DISPOSABLE, (PEN NEEDLE) 31 gauge x 5/16 ndle Use one needle per dose. 4 per day. Cholecalciferol, Vitamin D3, 1,000 unit cap Take 2 capsules by mouth once daily. Lancets (ONE TOUCH DELICA) lancets Test blood sugar(s) 4 daily. Dx: 250.02. Insulin: Yes atorvastatin (LIPITOR) 40 mg tablet Take 1 tablet by mouth once daily. (Patient not taking: Reported on 12/06/2021 ) No current facility-administered medications for this visit. Allergies: Contrast Dye, Penicillins, Sulfa (Sulfonamide Antibiotics), and Vicodin [Hydrocodone-Acetaminophen] ROS: General (negative for fatigue, malaise, weight loss/gain) HEENT (negative for headache, earache, recent vision changes, sinus pain, sore throat) Respiratory (no recent shortness of breath, hemoptysis) CV (negative for chest tightness, palpitations) Musculoskeletal (see HPI) Psych (no depression, anxiety) REFERRING PHYSICIAN: Ms. Tasneem Batista was referred to [place] for consultation by the following physician. This consultation note will be sent to the following physician by either mail or electronic medical record. CHUCHO YUAN No primary care provider on file. No primary provider on file. Eleno Reyna MD documented in this encounter [facility] 01-16-2022 History of Presen t illness Narrative Radiology Service Progress Note PATIENT NAME: Tasneem Batista DATE OF SERVICE: January 16, 2022 TIME: 7:49 AM PATIENT IDENTITY VERIFICATION COMPLETED USING TWO (2) IDENTIFIERS: Name and Date of confirmed by patient verbally. FALL SCREENING: Has the patient had 2 falls in the last year or 1 fall with injury or currently using an Ambulatory Assistive Device (Walker, Cane, Wheelchair, Crutches, etc.)? No PATIENT GENDER DATA: Female. status: : No status: NO. PATIENT RELEVANT IMPLANT DATA REVIEWED: Not Applicable RADIOLOGY DEPARTMENT: General X-ray: Exam(s) Completed: Upper Extremity X-Ray(s): Shoulder, AP / TRUE AP / AXILLARY right PERIPHERAL IV DATA: Not applicable SIGNED BY: RT Ramón(R) January 16, 2022 7:49 AM documented in this encounter [facility] 01-11-2022 Note HNO ID: [id number] Author: Chucho Yuan PT Service: ? Author Type: Physical Therapist Type: Progress Notes Filed: 01/11/2022 4:40 PM Note Text: Episode Visit Count: 8 Therapist That Will Oversee The Plan Of Care: Chucho Yuan PT Start of Care Date: 12/13/21 Onset Date: 08/14/21 Plan of Care Certification Date: 12/13/21 Next Certification Due Date: 01/17/22 Patient Identified by Name and Date of : Yes REHABILITATION AND SPORTS THERAPY PHYSICAL THERAPY DISCONTINUANCE OF CARE PLAN OF CARE UPDATE: Assessment: Tasneem Batista is discontinued from Physical Therapy services due to maximal benefit. and Patient/Clinician mutual decision to discontinue current plan of care.. Patient was seen for 8 visits from Start of Care Date: 12/13/21 to 01/11/2022 and treatment included: Therapeutic exercise, Manual therapy, Self-half-way management, Patient/Family/Caregiver Education and Body mechanics training. Updated: 01/11/22 Goals for Episode of Care: created on 12/13/21 through 01/17/22 Independent in home exercises. - met Patient will decrease pain rating by 2 points to meet minimal clinical important difference for numeric pain rating scale. - partially met Restore pain-free lumbar ROM to WFL to allow for improved tolerance with transfers. - met Stand / Walk without limitations, without pain/symptoms. - partially met Patient will be able to tolerate standing, walking, rising and driving without increased symptoms. - partially met Patient will increase strength of postural muscles to WFL to allow for improved position and activity tolerance. - met Restore pain free cervical ROM to WFL to allow for improved tolerance with driving - met Drive with no aggravation of pain/symptoms. - met Patient Goals: decrease pain and maintain an active lifestyle - met SUBJECTIVE: Patient Reason for Visit: Pt feels that overall she is better but she has been very busy with physical indoor and outdoor chores that are causing pain all over. She reports that R shoulder has been especially painful and therefore she is scheduled to see Dr. Reyna on Sunday morning to have R shoulder examined. She reports compliance with HEP 2x day. Despite having pain all over, she feels that PT has helped her be able to do more than she would have without PT. She reports that her standing and walking tolerance are both improved. She reports improved driving tolerance but that R shoulder still limits her ability and tolerance for driving. She reports that cervical rotation with driving is no longer painful. She reports that rising is unchanged. Pt reports that she receives short term benefit from traction the last two visits but she is unable to determine the duration of this benefit because chores have caused symptoms to return. Pain: Pain Pain Level: 4 Pain Location: Neck;Low Back/Lumbar Spine - Right;Low Back/Lumbar Spine - Left Description: Dull;Sharp Frequency: Intermittent Post Treatment Pain Post Treatment Pain Level: No Change PROMIS Scales T-scores: mean of general population = 50. 5 points is clinically meaningfully difference Percentiles provide an indication of how the patient's score ranks in relation to the general population. Higher percentile rankings indicate better function/quality of life. 50th percentile is the average of the general population and indicates half of respondents had a worse score. T-scores: mean of general population = 50. 5 points is clinically meaningfully difference Percentiles provide an indication of how the patient's score ranks in relation to the general population. Higher percentile rankings indicate better function/quality of life. 50th percentile is the average of the general population and indicates half of respondents had a worse score. OBJECTIVE MEASURES WITH LEVEL OF FUNCTION: Posture / Alignment Posture: Forward head;Rounded shoulders;Increased thoracic kyphosis;Scoliosis Lumbar Spine AROM Lumbar Flexion: Normal Lumbar Extension: Major limitation Lumbar R Side-Bend: Normal Lumbar L Side-Bend: Normal Lumbar R Rotation: Normal Lumbar L Rotation: Normal Cervical Spine ROM Cervical Flexion AROM (degrees)?: 65 Degrees Cervical Extension AROM (degrees)?: 45 Degrees Cervical Side-Bend Right AROM (degrees): 44 Degrees Cervical Side-Bend Left AROM (degrees)?: 35 Degrees Cervical Rotation Right AROM (degrees)?: 65 Degrees Cervical Rotation Left AROM (degrees)?: 67 Degrees LE Strength Trunk Strength: improved TREATMENT: Therapeutic Exercise: 1: [employer] StepOne seat #10 x6 minutes (Subjective taken and discussed progress related to goals. Future plan of care options discussed.) 2: Seated cervical retraction 2x10 3: Seated scapular retraction 2x10 4: seated B UT stretch 3x30 seconds 5: seated B levator scapulae stretch 3x30 seconds (reviewed and corrected for HEP) 6: seated B shoulder flexion and abduction with rope (more content not included)... [facility] 01-11-2022 History of Presen t illness Narrative Episode Visit Count: 8 Therapist That Will Oversee The Plan Of Care: Chucho Yuan PT Start of Care Date: 12/13/21 Onset Date: 08/14/21 Plan of Care Certification Date: 12/13/21 Next Certification Due Date: 01/17/22 Patient Identified by Name and Date of : Yes REHABILITATION AND SPORTS THERAPY PHYSICAL THERAPY DISCONTINUANCE OF CARE PLAN OF CARE UPDATE: Assessment: Tasneem Batista is discontinued from Physical Therapy services due to maximal benefit. and Patient/Clinician mutual decision to discontinue current plan of care.. Patient was seen for 8 visits from Start of Care Date: 12/13/21 to 01/11/2022 and treatment included: Therapeutic exercise, Manual therapy, Self-half-way management, Patient/Family/Caregiver Education and Body mechanics training. Updated: 01/11/22 Goals for Episode of Care: created on 12/13/21 through 01/17/22 Independent in home exercises. - met Patient will decrease pain rating by 2 points to meet minimal clinical important difference for numeric pain rating scale. - partially met Restore pain-free lumbar ROM to WFL to allow for improved tolerance with transfers. - met Stand / Walk without limitations, without pain/symptoms. - partially met Patient will be able to tolerate standing, walking, rising and driving without increased symptoms. - partially met Patient will increase strength of postural muscles to WFL to allow for improved position and activity tolerance. - met Restore pain free cervical ROM to WFL to allow for improved tolerance with driving - met Drive with no aggravation of pain/symptoms. - met Patient Goals: decrease pain and maintain an active lifestyle - met SUBJECTIVE: Patient Reason for Visit: Pt feels that overall she is better but she has been very busy with physical indoor and outdoor chores that are causing pain all over. She reports that R shoulder has been especially painful and therefore she is scheduled to see Dr. Reyna on Sunday morning to have R shoulder examined. She reports compliance with HEP 2x day. Despite having pain all over, she feels that PT has helped her be able to do more than she would have without PT. She reports that her standing and walking tolerance are both improved. She reports improved driving tolerance but that R shoulder still limits her ability and tolerance for driving. She reports that cervical rotation with driving is no longer painful. She reports that rising is unchanged. Pt reports that she receives short term benefit from traction the last two visits but she is unable to determine the duration of this benefit because chores have caused symptoms to return. Pain: Pain Pain Level: 4 Pain Location: Neck;Low Back/Lumbar Spine - Right;Low Back/Lumbar Spine - Left Description: Dull;Sharp Frequency: Intermittent Post Treatment Pain Post Treatment Pain Level: No Change PROMIS Scales T-scores: mean of general population = 50. 5 points is clinically meaningfully difference Percentiles provide an indication of how the patient's score ranks in relation to the general population. Higher percentile rankings indicate better function/quality of life. 50th percentile is the average of the general population and indicates half of respondents had a worse score. T-scores: mean of general population = 50. 5 points is clinically meaningfully difference Percentiles provide an indication of how the patient's score ranks in relation to the general population. Higher percentile rankings indicate better function/quality of life. 50th percentile is the average of the general population and indicates half of respondents had a worse score. OBJECTIVE MEASURES WITH LEVEL OF FUNCTION: Posture / Alignment Posture: Forward head;Rounded shoulders;Increased thoracic kyphosis;Scoliosis Lumbar Spine AROM Lumbar Flexion: Normal Lumbar Extension: Major limitation Lumbar R Side-Bend: Normal Lumbar L Side-Bend: Normal Lumbar R Rotation: Normal Lumbar L Rotation: Normal Cervical Spine ROM Cervical Flexion AROM (degrees) : 65 Degrees Cervical Extension AROM (degrees) : 45 Degrees Cervical Side-Bend Right AROM (degrees): 44 Degrees Cervical Side-Bend Left AROM (degrees) : 35 Degrees Cervical Rotation Right AROM (degrees) : 65 Degrees Cervical Rotation Left AROM (degrees) : 67 Degrees LE Strength Trunk Strength: improved TREATMENT: Therapeutic Exercise: 1: [employer] StepOne seat #10 x6 minutes (Subjective taken and discussed progress related to goals. Future plan of care options discussed.) 2: Seated cervical retraction 2x10 3: Seated scapular retraction 2x10 4: seated B UT stretch 3x30 seconds 5: seated B levator scapulae stretch 3x30 seconds (reviewed and corrected for HEP) 6: seated B shoulder flexion and abduction with rope and bruno 2x10 7: Re-assessment results reviewed with patient and used as rationale for proposed d/c to HEP. HEP was reviewed, questions answered and continuation encouraged to tolerance. Skilled Intervention: Patient was educated in proper exercise technique and purpose for exercises. Skilled judgment was provided in selection of appropriate interventions. Correct performance of therapeutic exercises was facilitated with verbal, visual and tactile cuing. Patient education as noted. Billing Therapeutic Exercise Treatment Minutes: 40 Total Treatment Time Minutes (timed/untimed): 40 Chucho Yuan PT documented in this encounter [facility] 01-09-2022 Note HNO ID: [id number] Author: Chucho Yuan PT Service: ? Author Type: Physical Therapist Type: Progress Notes Filed: 01/09/2022 1:27 PM Note Text: Episode Visit Count: 7 Therapist That Will Oversee The Plan Of Care: Chucho Yuan PT Start of Care Date: 12/13/21 Onset Date: 08/14/21 Plan of Care Certification Date: 12/13/21 Next Certification Due Date: 01/17/22 Patient Identified by Name and Date of : Yes REHABILITATION AND SPORTS THERAPY PHYSICAL THERAPY TREATMENT NOTE ASSESSMENT: Tasneem Batista tolerated the session with expected muscle soreness. She demonstrated difficulty with AROM of right shoulder and good tolerance to exercises in therapy today.. The patient will continue to benefit from ongoing skilled physical therapy for reassessment by supervising therapist. PLAN FOR NEXT VISIT: POC update SUBJECTIVE: Patient Reason for Visit: Patient reports no back pain. She reports right shoulder and neck hurt with reaching up and out to the side. Pain: Pain Pain Level: 3 Pain Location: Neck - Right;Shoulder - Right;Upper Arm - Right Description: Dull Frequency: Intermittent Pain Level 2: 0 Pain Location 2: Low Back/Lumbar Spine - Right;Low Back/Lumbar Spine - Left;Leg - Left Post Treatment Pain Post Treatment Pain Level: No Change Post Treatment Pain Location: Neck - Right;Shoulder - Right;Upper Arm - Right Post Treatment Symptoms: Manual therapy felt good in the neck OBJECTIVE MEASURES WITH LEVEL OF FUNCTION: Tabletop lflexion and abduction felt good to patient and this was added to home program. TREATMENT: Therapeutic Exercise: 1: [employer] StepOne seat #10 x5 minutes (Subjective taken and disccused progress and waht movements cause pain.) 2: Seated cervical retraction 2x10 3: Seated scapular retraction 2x10 4: seated B UT stretch 3x30 seconds 5: seated B levator scapulae stretch 3x30 seconds (reviewed and corrected for HEP) 6: seated B shoulder flexion and abduction with rope and bruno 2x10 7: *Seated right table top flexion and abduction 1x10 Skilled Intervention: Patient was educated in proper exercise technique and purpose for exercises. Reviewed and educated patient on additions/changes for home exercise program as above (*). Skilled judgment was provided in selection of appropriate interventions. Provided written instruction for home exercise program to facilitate proper performance and compliance. Correct performance of therapeutic exercises was facilitated with verbal and visual cuing. Manual Therapy: 1: Manual cervical traction with gentle pull to tolerance. Soft tissue mobs supine with push to tolerance right UT Skilled Intervention: Manual skills to improve joint mobility, ROM, and decrease pain. Utilized anatomy knowledge of the therapist, and assessment of patient's response to intervention. Billing Therapeutic Exercise Treatment Minutes: 35 Manual TherapyTreatment Minutes: 10 Total Treatment Time Minutes (timed/untimed): 45 Malou Bray, EXAMINER RATING CLERK Chucho Yuan PT [facility] 01-09-2022 History of Presen t illness Narrative Episode Visit Count: 7 Therapist That Will Oversee The Plan Of Care: Chucho Yuan PT Start of Care Date: 12/13/21 Onset Date: 08/14/21 Plan of Care Certification Date: 12/13/21 Next Certification Due Date: 01/17/22 Patient Identified by Name and Date of : Yes REHABILITATION AND SPORTS THERAPY PHYSICAL THERAPY TREATMENT NOTE ASSESSMENT: Tasneem Batista tolerated the session with expected muscle soreness. She demonstrated difficulty with AROM of right shoulder and good tolerance to exercises in therapy today.. The patient will continue to benefit from ongoing skilled physical therapy for reassessment by supervising therapist. PLAN FOR NEXT VISIT: POC update SUBJECTIVE: Patient Reason for Visit: Patient reports no back pain. She reports right shoulder and neck hurt with reaching up and out to the side. Pain: Pain Pain Level: 3 Pain Location: Neck - Right;Shoulder - Right;Upper Arm - Right Description: Dull Frequency: Intermittent Pain Level 2: 0 Pain Location 2: Low Back/Lumbar Spine - Right;Low Back/Lumbar Spine - Left;Leg - Left Post Treatment Pain Post Treatment Pain Level: No Change Post Treatment Pain Location: Neck - Right;Shoulder - Right;Upper Arm - Right Post Treatment Symptoms: Manual therapy felt good in the neck OBJECTIVE MEASURES WITH LEVEL OF FUNCTION: Tabletop lflexion and abduction felt good to patient and this was added to home program. TREATMENT: Therapeutic Exercise: 1: [employer] StepOne seat #10 x5 minutes (Subjective taken and disccused progress and waht movements cause pain.) 2: Seated cervical retraction 2x10 3: Seated scapular retraction 2x10 4: seated B UT stretch 3x30 seconds 5: seated B levator scapulae stretch 3x30 seconds (reviewed and corrected for HEP) 6: seated B shoulder flexion and abduction with rope and bruno 2x10 7: *Seated right table top flexion and abduction 1x10 Skilled Intervention: Patient was educated in proper exercise technique and purpose for exercises. Reviewed and educated patient on additions/changes for home exercise program as above (*). Skilled judgment was provided in selection of appropriate interventions. Provided written instruction for home exercise program to facilitate proper performance and compliance. Correct performance of therapeutic exercises was facilitated with verbal and visual cuing. Manual Therapy: 1: Manual cervical traction with gentle pull to tolerance. Soft tissue mobs supine with push to tolerance right UT Skilled Intervention: Manual skills to improve joint mobility, ROM, and decrease pain. Utilized anatomy knowledge of the therapist, and assessment of patient's response to intervention. Billing Therapeutic Exercise Treatment Minutes: 35 Manual TherapyTreatment Minutes: 10 Total Treatment Time Minutes (timed/untimed): 45 ENRIQUETA Karimi PT documented in this encounter [facility] 01-04-2022 Note HNO ID: [id number] Author: Chucho Yuan PT Service: ? Author Type: Physical Therapist Type: Progress Notes Filed: 01/04/2022 1:31 PM Note Text: Episode Visit Count: 6 Therapist That Will Oversee The Plan Of Care: Chucho Yuan PT Start of Care Date: 12/13/21 Onset Date: 08/14/21 Plan of Care Certification Date: 12/13/21 Next Certification Due Date: 01/17/22 Patient Identified by Name and Date of : Yes REHABILITATION AND SPORTS THERAPY PHYSICAL THERAPY TREATMENT NOTE ASSESSMENT: Tasneem Batista tolerated the session with decreased pain. She demonstrated improvements in pain in the short term. The patient will continue to benefit from ongoing skilled physical therapy to progress toward set goals. PLAN FOR NEXT VISIT: Continue with postural stretching and strengthening for lumbar and cervical spines. Also continue with manual therapy to cervical spine pending her delayed response to this today. Re-assess for plan of care update in 1 week. SUBJECTIVE: Patient Reason for Visit: Pt reports compliance with HEP 2x day. She reports feeling better after HEP completion. She reports that prolonged standing for meal prep and clean up causes increased pain in her low back but that overall her low back is better and not painful during the day normally. She reports being very active dong yard work/chores and she attributes some of her symptoms to these activities. She reports that she has had increased neck and R shoulder symptoms with reaching tasks. Reaching overhead to microwave above her stove has caused increased pain Pain: Pain Pain Level: 3 Pain Location: Neck - Right;Shoulder - Right;Upper Arm - Right Description: Aching Frequency: Intermittent Additional Pain Information : Location 2 Pain Level 2: 0 Pain Location 2: Low Back/Lumbar Spine - Right;Low Back/Lumbar Spine - Left;Leg - Left Description 2: (no low back pain to start today) Post Treatment Pain Post Treatment Pain Level: Better Post Treatment Pain Location: Neck Post Treatment Pain Description: (better) Post Treatment Symptoms: Pt stated, my neck feels a lot better. OBJECTIVE MEASURES WITH LEVEL OF FUNCTION: Special Tests - Cervical Cervical Special Tests: Vertebral Artery Test;Spurling Vertebral Artery Test: Negative Spurling: Right Negative;Left Negative Special Tests - Shoulder Shoulder Special Tests: Marie-Cresencio;Empty Can Empty Can: Right Positive Marie-Cresencio: Right Positive TREATMENT: Therapeutic Exercise: 1: [employer] StepOne seat #10 x5 minutes (Discussed progress to this point, persistent difficulties and changes to functional activities that might decrease symptoms.) 2: Seated cervical retraction 2x10 3: Seated scapular retraction 2x10 (Emphasis on technique for scapular retraction versus GH extension. Pt to avoid scapular elevation.) 4: seated B UT stretch 3x30 seconds 5: seated B levator scapulae stretch 3x30 seconds (reviewed and corrected for HEP) 6: seated B shoulder flexion and abduction with rope and bruno 2x10 7: Review of HEP and continuation encouraged. 8: Exam findings were reviewed and used to explain the possible source of symptoms. Skilled Intervention: Patient was educated in proper exercise technique and purpose for exercises. Skilled judgment was provided in selection of appropriate interventions. Correct performance of therapeutic exercises was facilitated with verbal, visual and tactile cuing. Patient education as noted. Manual Therapy: 1: After therex, manual therapy to cervical spine region x10 minutes with pt supine. Techniques utilized include general massage, trigger point release, sub-occipital release and intermittent manual cervical traction wtih 20 second holds and 10 second rests. Skilled Intervention: Manual skills to improve joint mobility, ROM, and decrease pain. Utilized anatomy knowledge of the therapist, and assessment of patient's response to intervention. Billing Therapeutic Exercise Treatment Minutes: 40 Manual TherapyTreatment Minutes: 10 Total Treatment Time Minutes (timed/untimed): 50 Chucho Yuan PT [facility] 01-02-2022 Note HNO ID: [id number] Author: Chucho Yuan PT Service: ? Author Type: Physical Therapist Type: Progress Notes Filed: 01/02/2022 1:25 PM Note Text: Episode Visit Count: 5 Therapist That Will Oversee The Plan Of Care: Chucho Yuan PT Start of Care Date: 12/13/21 Onset Date: 08/14/21 Plan of Care Certification Date: 12/13/21 Next Certification Due Date: 01/17/22 Patient Identified by Name and Date of : Yes REHABILITATION AND SPORTS THERAPY PHYSICAL THERAPY TREATMENT NOTE ASSESSMENT: Tasneem Batista tolerated the session with decreased pain. She demonstrated improvements in tolerance for exercises with emphasis on neck and postural awareness. The patient will continue to benefit from ongoing skilled physical therapy to progress toward set goals. PLAN FOR NEXT VISIT: Possibly add supine deep neck flexoer strengthening SUBJECTIVE: Patient Reason for Visit: Patient reports her neck on both sides are hurting and has pain down right upper arm. Pain: Pain Pain Level: 5 Pain Location: Neck;Upper Arm - Right Description: Aching Frequency: Intermittent Post Treatment Pain Post Treatment Pain Level: 3 Post Treatment Pain Location: Neck;Upper Arm - Left Post Treatment Pain Description: Aching Post Treatment Symptoms: feels better OBJECTIVE MEASURES WITH LEVEL OF FUNCTION: Improved postural awareness. TREATMENT: Therapeutic Exercise: 1: [employer] StepOne seat #10 x5 minutes (Discussed exercises) 2: *Seated cervical retraction 2x10 3: *Seated scapular retraction 2x10 (Education to do 3-5 times throughout the day) 4: seated B UT stretch 2x30 seconds 5: seated B levator scapulae stretch 2x30 seconds (reviewed and corrected for HEP) 6: seated B shoulder flexion and abduction with rope and bruno 2x10 7: *Standing wand extension 2x10 Skilled Intervention: Patient was educated in proper exercise technique and purpose for exercises. Skilled judgment was provided in selection of appropriate interventions. Provided written instruction for home exercise program to facilitate proper performance and compliance. Correct performance of therapeutic exercises was facilitated with verbal and visual cuing. Billing Therapeutic Exercise Treatment Minutes: 41 Total Treatment Time Minutes (timed/untimed): 41 ENRIQUETA Karimi PT [facility] 12-29-2021 Note HNO ID: [id number] Author: Chucho Yuan PT Service: ? Author Type: Physical Therapist Type: Progress Notes Filed: 12/29/2021 10:18 AM Note Text: Episode Visit Count: 4 Therapist That Will Oversee The Plan Of Care: Chucho Yuan PT Start of Care Date: 12/13/21 Onset Date: 08/14/21 Plan of Care Certification Date: 12/13/21 Next Certification Due Date: 01/17/22 Patient Identified by Name and Date of : Yes REHABILITATION AND SPORTS THERAPY PHYSICAL THERAPY TREATMENT NOTE ASSESSMENT: Tasneem Batista tolerated the session with increased pain, decreased pain and expected muscle soreness. She demonstrated difficulty with continued neck pain and improvements in low back pain. The patient will continue to benefit from ongoing skilled physical therapy to progress toward set goals. PLAN FOR NEXT VISIT: Review, correct and progress HEP to tolerance. Continue and progress postural stretching and strengthening using flexion directional preference. Utilize manual therapy for neck next visit and shift focus to neck since low back is feeling better. SUBJECTIVE: Patient Reason for Visit: Pt reports that she planted a tree on Sunday and as a result she had increased neck pain. She reports canceling her PT appointment earlier in the week because of the pain in her neck. She reports compliance with HEP 2x day and that LTR feels good. She reports that her low back is improving and less painful. She does report that neck pain is no longer constant. Pain: Pain Pain Level: 4 Pain Location: Neck Description: Aching Frequency: Intermittent Additional Pain Information : Location 2 Pain Level 2: 0 Pain Location 2: Low Back/Lumbar Spine - Right;Low Back/Lumbar Spine - Left;Leg - Left Description 2: (no pain to start today) Frequency 2: Intermittent;Standing;Walking Post Treatment Pain Post Treatment Pain Level: 5 (no change in LB) Post Treatment Pain Location: Neck;Low Back/Lumbar Spine - Right;Low Back/Lumbar Spine - Left Post Treatment Pain Description: (neck slightly worse and low back better and fairly good ) Post Treatment Symptoms: After session today, pt reported that R side of neck is slightly worse but low back pain was less. OBJECTIVE MEASURES WITH LEVEL OF FUNCTION: Posture / Alignment Posture: Forward head;Increased thoracic kyphosis;Rounded shoulders Special Tests - Cervical Cervical Special Tests: Spurling Spurling: Right Negative Special Tests - Shoulder Shoulder Special Tests: Marie-Cresencio;Empty Can Empty Can: Right Positive Marie-Cresencio: Right Positive TREATMENT: Therapeutic Exercise: 1: [employer] StepOne seat #10 x5 minutes (Subjective collected and pt updated therapist on her response to treatment. Plan of care and options discussed.) 2: supine B SKTC x30 seconds 3: supine DKTC x30 seconds 4: seated B UT stretch reviewed and corrected for HEP x30 seconds (reviewed and corrected for HEP) 5: seated B levator scapulae stretch reviewed and corrected for HEP x30 seconds (reviewed and corrected for HEP) 6: supine isometric abdominal exercise via shoulder extension 2 second holds 2x10 7: crunches in small range 2x10 8: bridging in small range 2x10 9: HEP reviewed and continuation encouraged to tolerance using pain as a guide. 10: pt questions about her orthotics answered and refurbishment plans made. 11: supine LTR 2x10 in pain-free range 12: seated B shoulder flexion with rope and bruno 2x10 13: seated at side of plinth green t-band perturbations R, L and forward 3x15 each Skilled Intervention: Patient was educated in proper exercise technique and purpose for exercises. Skilled judgment was provided in selection of appropriate interventions. Correct performance of therapeutic exercises was facilitated with verbal, visual and tactile cuing. Patient education as noted. Billing Therapeutic Exercise Treatment Minutes: 45 Total Treatment Time Minutes (timed/untimed): 45 Chucho Yuan PT [facility] 12-29-2021 History of Presen t illness Narrative Episode Visit Count: 4 Therapist That Will Oversee The Plan Of Care: Chucho Yuan PT Start of Care Date: 12/13/21 Onset Date: 08/14/21 Plan of Care Certification Date: 12/13/21 Next Certification Due Date: 01/17/22 Patient Identified by Name and Date of : Yes REHABILITATION AND SPORTS THERAPY PHYSICAL THERAPY TREATMENT NOTE ASSESSMENT: Tasneem Batista tolerated the session with increased pain, decreased pain and expected muscle soreness. She demonstrated difficulty with continued neck pain and improvements in low back pain. The patient will continue to benefit from ongoing skilled physical therapy to progress toward set goals. PLAN FOR NEXT VISIT: Review, correct and progress HEP to tolerance. Continue and progress postural stretching and strengthening using flexion directional preference. Utilize manual therapy for neck next visit and shift focus to neck since low back is feeling better. SUBJECTIVE: Patient Reason for Visit: Pt reports that she planted a tree on Sunday and as a result she had increased neck pain. She reports canceling her PT appointment earlier in the week because of the pain in her neck. She reports compliance with HEP 2x day and that LTR feels good. She reports that her low back is improving and less painful. She does report that neck pain is no longer constant. Pain: Pain Pain Level: 4 Pain Location: Neck Description: Aching Frequency: Intermittent Additional Pain Information : Location 2 Pain Level 2: 0 Pain Location 2: Low Back/Lumbar Spine - Right;Low Back/Lumbar Spine - Left;Leg - Left Description 2: (no pain to start today) Frequency 2: Intermittent;Standing;Walking Post Treatment Pain Post Treatment Pain Level: 5 (no change in LB) Post Treatment Pain Location: Neck;Low Back/Lumbar Spine - Right;Low Back/Lumbar Spine - Left Post Treatment Pain Description: (neck slightly worse and low back better and fairly good ) Post Treatment Symptoms: After session today, pt reported that R side of neck is slightly worse but low back pain was less. OBJECTIVE MEASURES WITH LEVEL OF FUNCTION: Posture / Alignment Posture: Forward head;Increased thoracic kyphosis;Rounded shoulders Special Tests - Cervical Cervical Special Tests: Spurling Spurling: Right Negative Special Tests - Shoulder Shoulder Special Tests: Marie-Cresencio;Empty Can Empty Can: Right Positive Marie-Cresencio: Right Positive TREATMENT: Therapeutic Exercise: 1: [employer] StepOne seat #10 x5 minutes (Subjective collected and pt updated therapist on her response to treatment. Plan of care and options discussed.) 2: supine B SKTC x30 seconds 3: supine DKTC x30 seconds 4: seated B UT stretch reviewed and corrected for HEP x30 seconds (reviewed and corrected for HEP) 5: seated B levator scapulae stretch reviewed and corrected for HEP x30 seconds (reviewed and corrected for HEP) 6: supine isometric abdominal exercise via shoulder extension 2 second holds 2x10 7: crunches in small range 2x10 8: bridging in small range 2x10 9: HEP reviewed and continuation encouraged to tolerance using pain as a guide. 10: pt questions about her orthotics answered and refurbishment plans made. 11: supine LTR 2x10 in pain-free range 12: seated B shoulder flexion with rope and bruno 2x10 13: seated at side of plinth green t-band perturbations R, L and forward 3x15 each Skilled Intervention: Patient was educated in proper exercise technique and purpose for exercises. Skilled judgment was provided in selection of appropriate interventions. Correct performance of therapeutic exercises was facilitated with verbal, visual and tactile cuing. Patient education as noted. Billing Therapeutic Exercise Treatment Minutes: 45 Total Treatment Time Minutes (timed/untimed): 45 Chucho Yuan PT documented in this encounter [facility] 12-21-2021 Note HNO ID: [id number] Author: Chucho Yuan PT Service: ? Author Type: Physical Therapist Type: Progress Notes Filed: 12/21/2021 11:09 AM Note Text: Episode Visit Count: 3 Therapist That Will Oversee The Plan Of Care: Chucho Yuan PT Start of Care Date: 12/13/21 Onset Date: 08/14/21 Plan of Care Certification Date: 12/13/21 Next Certification Due Date: 01/17/22 Patient Identified by Name and Date of : Yes REHABILITATION AND SPORTS THERAPY PHYSICAL THERAPY TREATMENT NOTE ASSESSMENT: Tasneem Batista tolerated the session with fatigue, decreased pain and expected muscle soreness. She demonstrated improvements in pain and exercise tolerance. The patient will continue to benefit from ongoing skilled physical therapy to progress toward set goals. PLAN FOR NEXT VISIT: Review, correct and progress HEP to tolerance. Continue and progress postural stretching and strengthening using flexion directional preference. Utilize manual therapy prn. SUBJECTIVE: Patient Reason for Visit: Pt reports that overall she is feeling the same or slightly better. She reports compliance with HEP 3x day with good results. She reports that she has been having less radicular pain in L LE with walking. She denies any negative effects following last session. She reports driving for 45 minutes to [place] yesterday and this caused symptoms in B shoulders and upper arms. Pain: Pain Pain Level: 4 Pain Location: Neck Description: Aching Frequency: Continuous Additional Pain Information : Location 2 Pain Level 2: 0 Pain Location 2: Low Back/Lumbar Spine - Left;Buttocks - Left;Hip - Left;Thigh - Left Description 2: (I can walk out of the pain immediately after rising.) Frequency 2: Intermittent;Standing;Walking Post Treatment Pain Post Treatment Pain Level: No Change Post Treatment Pain Location: Neck;Low Back/Lumbar Spine - Right;Low Back/Lumbar Spine - Left Post Treatment Pain Description: (good workout) Post Treatment Symptoms: During and after session, pt reported that she received a good workout but she denied any increase in pain. Overall she is reporting improvements with decreased pain. OBJECTIVE MEASURES WITH LEVEL OF FUNCTION: Posture / Alignment Posture: Forward head;Increased thoracic kyphosis;Rounded shoulders TREATMENT: Therapeutic Exercise: 1: RailpodFit StepOne seat #10 x5 minutes (Subjective collected and pt updated therapist on her response to treatment. Plan of care and options discussed.) 2: supine B SKTC 3x30 seconds 3: supine DKTC 3x30 seconds 4: seated B UT stretch reviewed and corrected for HEP x30 seconds 5: seated B levator scapulae stretch reviewed and corrected for HEP x30 seconds 6: *supine isometric abdominal exercise via shoulder extension 2 second holds 2x10 7: *crunches in small range 2x10 8: *bridging in small range 2x10 9: HEP reviewed and continuation encouraged to tolerance using pain as a guide. 10: pt questions about her orthotics answered. 11: *supine LTR 2x10 in pain-free range 12: seated B shoulder flexion with rope and bruno 2x10 Skilled Intervention: Patient was educated in proper exercise technique and purpose for exercises. Reviewed and educated patient on additions/changes for home exercise program as above (*). Skilled judgment was provided in selection of appropriate interventions. Provided written instruction for home exercise program to facilitate proper performance and compliance. Correct performance of therapeutic exercises was facilitated with verbal, visual and tactile cuing. Patient education as noted. Billing Therapeutic Exercise Treatment Minutes: 60 Total Treatment Time Minutes (timed/untimed): 60 Chucho Yuan PT [facility] 12-21-2021 History of Presen t illness Narrative Episode Visit Count: 3 Therapist That Will Oversee The Plan Of Care: Chucho Yuan PT Start of Care Date: 12/13/21 Onset Date: 08/14/21 Plan of Care Certification Date: 12/13/21 Next Certification Due Date: 01/17/22 Patient Identified by Name and Date of : Yes REHABILITATION AND SPORTS THERAPY PHYSICAL THERAPY TREATMENT NOTE ASSESSMENT: Tasneem Batista tolerated the session with fatigue, decreased pain and expected muscle soreness. She demonstrated improvements in pain and exercise tolerance. The patient will continue to benefit from ongoing skilled physical therapy to progress toward set goals. PLAN FOR NEXT VISIT: Review, correct and progress HEP to tolerance. Continue and progress postural stretching and strengthening using flexion directional preference. Utilize manual therapy prn. SUBJECTIVE: Patient Reason for Visit: Pt reports that overall she is feeling the same or slightly better. She reports compliance with HEP 3x day with good results. She reports that she has been having less radicular pain in L LE with walking. She denies any negative effects following last session. She reports driving for 45 minutes to [place] yesterday and this caused symptoms in B shoulders and upper arms. Pain: Pain Pain Level: 4 Pain Location: Neck Description: Aching Frequency: Continuous Additional Pain Information : Location 2 Pain Level 2: 0 Pain Location 2: Low Back/Lumbar Spine - Left;Buttocks - Left;Hip - Left;Thigh - Left Description 2: (I can walk out of the pain immediately after rising.) Frequency 2: Intermittent;Standing;Walking Post Treatment Pain Post Treatment Pain Level: No Change Post Treatment Pain Location: Neck;Low Back/Lumbar Spine - Right;Low Back/Lumbar Spine - Left Post Treatment Pain Description: (good workout) Post Treatment Symptoms: During and after session, pt reported that she received a good workout but she denied any increase in pain. Overall she is reporting improvements with decreased pain. OBJECTIVE MEASURES WITH LEVEL OF FUNCTION: Posture / Alignment Posture: Forward head;Increased thoracic kyphosis;Rounded shoulders TREATMENT: Therapeutic Exercise: 1: SciFit StepOne seat #10 x5 minutes (Subjective collected and pt updated therapist on her response to treatment. Plan of care and options discussed.) 2: supine B SKTC 3x30 seconds 3: supine DKTC 3x30 seconds 4: seated B UT stretch reviewed and corrected for HEP x30 seconds 5: seated B levator scapulae stretch reviewed and corrected for HEP x30 seconds 6: *supine isometric abdominal exercise via shoulder extension 2 second holds 2x10 7: *crunches in small range 2x10 8: *bridging in small range 2x10 9: HEP reviewed and continuation encouraged to tolerance using pain as a guide. 10: pt questions about her orthotics answered. 11: *supine LTR 2x10 in pain-free range 12: seated B shoulder flexion with rope and brnuo 2x10 Skilled Intervention: Patient was educated in proper exercise technique and purpose for exercises. Reviewed and educated patient on additions/changes for home exercise program as above (*). Skilled judgment was provided in selection of appropriate interventions. Provided written instruction for home exercise program to facilitate proper performance and compliance. Correct performance of therapeutic exercises was facilitated with verbal, visual and tactile cuing. Patient education as noted. Billing Therapeutic Exercise Treatment Minutes: 60 Total Treatment Time Minutes (timed/untimed): 60 Chucho Yuan PT documented in this encounter [facility] 12-15-2021 Note HNO ID: [id number] Author: Chucho Yuan PT Service: ? Author Type: Physical Therapist Type: Progress Notes Filed: 12/15/2021 2:51 PM Note Text: Episode Visit Count: 2 Therapist That Will Oversee The Plan Of Care: Chucho Yuan PT Start of Care Date: 12/13/21 Onset Date: 08/14/21 Plan of Care Certification Date: 12/13/21 Next Certification Due Date: 01/17/22 Patient Identified by Name and Date of : Yes REHABILITATION AND SPORTS THERAPY PHYSICAL THERAPY TREATMENT NOTE ASSESSMENT: Tasneem Batista tolerated the session with fatigue, expected muscle soreness and no issues. She demonstrated improvements in pain and exercise tolerance. The patient will continue to benefit from ongoing skilled physical therapy to progress toward set goals. PLAN FOR NEXT VISIT: Review, correct and progress HEP to tolerance. Continue and progress postural stretching and strengthening using flexion directional preference. Utilize manual therapy prn. SUBJECTIVE: Patient Reason for Visit: Pt reports that overall her low back feels the same but neck and shoulder muscles are worse. She reports compliance with HEP 3x day and that she feels better when doing the HEP. Unfortunately she reports that the relief from HEP only lasts for a couple of hours. Pain: Pain Pain Level: 4 Pain Location: Neck Description: Aching Frequency: Continuous (constant but varies in intensity) Additional Pain Information : Location 2 Pain Level 2: 0 Pain Location 2: Low Back/Lumbar Spine - Left;Buttocks - Left;Hip - Left;Thigh - Left Description 2: (no low back pain to start today) Frequency 2: Intermittent;Standing;Walking Post Treatment Pain Post Treatment Pain Level: No Change Post Treatment Pain Location: Neck;Low Back/Lumbar Spine - Right;Low Back/Lumbar Spine - Left Post Treatment Symptoms: Pt reported that she could tell she exercised but she denies any increase in pain. OBJECTIVE MEASURES WITH LEVEL OF FUNCTION: Posture / Alignment Posture: Forward head;Increased thoracic kyphosis;Rounded shoulders TREATMENT: Therapeutic Exercise: 1: RailpodFit StepOne seat #10 x5 minutes (Subjective collected and pt updated therapist on her response to treatment. Plan of care and options discussed.) 2: supine B SKTC 3x30 seconds 3: supine DKTC 3x30 seconds 4: seated B UT stretch 3x30 seconds 5: seated B levator scapulae stretch 3x30 seconds 6: supine isometric abdominal exercise via shoulder extension 2 second holds 2x10 7: crunches in small range 2x10 8: bridging in small range 2x10 9: seated green t-band perturbations R, L and forward 3x15 each 10: seated scapular retraction in front of mirror being sure to avoid shrugging 2x10 11: HEP reviewed and continuation encouraged to tolerance using pain as a guide. No additions to HEP today Skilled Intervention: Patient was educated in proper exercise technique and purpose for exercises. Skilled judgment was provided in selection of appropriate interventions. Correct performance of therapeutic exercises was facilitated with verbal, visual and tactile cuing. Patient education as noted. Billing Therapeutic Exercise Treatment Minutes: 45 Total Treatment Time Minutes (timed/untimed): 45 Chucho Yuan PT [facility] 12-15-2021 History of Presen t illness Narrative Episode Visit Count: 2 Therapist That Will Oversee The Plan Of Care: Chucho Yuan PT Start of Care Date: 12/13/21 Onset Date: 08/14/21 Plan of Care Certification Date: 12/13/21 Next Certification Due Date: 01/17/22 Patient Identified by Name and Date of : Yes REHABILITATION AND SPORTS THERAPY PHYSICAL THERAPY TREATMENT NOTE ASSESSMENT: Tasneem Batista tolerated the session with fatigue, expected muscle soreness and no issues. She demonstrated improvements in pain and exercise tolerance. The patient will continue to benefit from ongoing skilled physical therapy to progress toward set goals. PLAN FOR NEXT VISIT: Review, correct and progress HEP to tolerance. Continue and progress postural stretching and strengthening using flexion directional preference. Utilize manual therapy prn. SUBJECTIVE: Patient Reason for Visit: Pt reports that overall her low back feels the same but neck and shoulder muscles are worse. She reports compliance with HEP 3x day and that she feels better when doing the HEP. Unfortunately she reports that the relief from HEP only lasts for a couple of hours. Pain: Pain Pain Level: 4 Pain Location: Neck Description: Aching Frequency: Continuous (constant but varies in intensity) Additional Pain Information : Location 2 Pain Level 2: 0 Pain Location 2: Low Back/Lumbar Spine - Left;Buttocks - Left;Hip - Left;Thigh - Left Description 2: (no low back pain to start today) Frequency 2: Intermittent;Standing;Walking Post Treatment Pain Post Treatment Pain Level: No Change Post Treatment Pain Location: Neck;Low Back/Lumbar Spine - Right;Low Back/Lumbar Spine - Left Post Treatment Symptoms: Pt reported that she could tell she exercised but she denies any increase in pain. OBJECTIVE MEASURES WITH LEVEL OF FUNCTION: Posture / Alignment Posture: Forward head;Increased thoracic kyphosis;Rounded shoulders TREATMENT: Therapeutic Exercise: 1: SciFit StepOne seat #10 x5 minutes (Subjective collected and pt updated therapist on her response to treatment. Plan of care and options discussed.) 2: supine B SKTC 3x30 seconds 3: supine DKTC 3x30 seconds 4: seated B UT stretch 3x30 seconds 5: seated B levator scapulae stretch 3x30 seconds 6: supine isometric abdominal exercise via shoulder extension 2 second holds 2x10 7: crunches in small range 2x10 8: bridging in small range 2x10 9: seated green t-band perturbations R, L and forward 3x15 each 10: seated scapular retraction in front of mirror being sure to avoid shrugging 2x10 11: HEP reviewed and continuation encouraged to tolerance using pain as a guide. No additions to HEP today Skilled Intervention: Patient was educated in proper exercise technique and purpose for exercises. Skilled judgment was provided in selection of appropriate interventions. Correct performance of therapeutic exercises was facilitated with verbal, visual and tactile cuing. Patient education as noted. Billing Therapeutic Exercise Treatment Minutes: 45 Total Treatment Time Minutes (timed/untimed): 45 Chucho Yuan PT documented in this encounter [facility] 12-14-2021 Note HNO ID: [id number] Author: Chucho Yuan PT Service: ? Author Type: Physical Therapist Type: Progress Notes Filed: 12/13/2021 10:23 PM Note Text: Episode Visit Count: 1 Therapist That Will Oversee The Plan Of Care: Chucho Yuan PT Start of Care Date: 12/13/21 Onset Date: 08/14/21 Plan of Care Certification Date: 12/13/21 Next Certification Due Date: 01/17/22 Patient Identified by Name and Date of : Yes REHABILITATION AND SPORTS THERAPY PHYSICAL THERAPY EVALUATION PLAN OF CARE: Assessment: Tasneem Batista presents with chief complaint of cervical and lumbar spine pain with radiculopathy that interferes with standing;walking;rising from a chair;driving (prolonged positions) . She presents with impairments in ADL's, independence in exercise, overall function, range of motion and strength . . Prognosis for therapy is Excellent due to: current objective clinical presentation;within-session changes;good support system/ coping skills. She will benefit from skilled therapy services to meet the goals established for this plan of care as noted below. Classification Low Back Pain Subgroup Classification: Core stabilization subgroup: recommended visits 10. Core Stabilization Subgroup Classification based on: pain with transitional movements (pain with prolonged stationary positioning) Goals for Episode of Care: created on 12/13/21 through 01/17/22 Independent in home exercises. Patient will decrease pain rating by 2 points to meet minimal clinical important difference for numeric pain rating scale. Restore pain-free lumbar ROM to WFL to allow for improved tolerance with transfers. Stand / Walk without limitations, without pain/symptoms. Patient will be able to tolerate standing, walking, rising and driving without increased symptoms. Patient will increase strength of postural muscles to WFL to allow for improved position and activity tolerance. Restore pain free cervical ROM to WFL to allow for improved tolerance for . Drive with no aggravation of pain/symptoms. Patient Goals: decrease pain and maintain an active lifestyle Planned Interventions, Frequency, and Duration: Current Frequency: 2x/week Duration: 5 weeks Total Number of Visits Planned: 10 Planned Treatment Interventions: Therapeutic exercise (14442);Neuromuscular re-education (63304);Manual therapy (56741);Therapeutic activities (69082);Self-half-way management (03396);Patient/Family/Caregiver Education;Body Mechanics Training PLAN FOR NEXT VISIT: Review, correct and progress HEP to tolerance. Continue and progress postural stretching and strengthening using flexion directional preference. Utilize manual therapy prn. Patient demonstrates good understanding of plan of care and treatment. The above goals and plan of care were discussed and agreed upon by patient/family. SUBJECTIVE: Tasneem Batista is a 76 year old female seen today for intermittent low back pain that is aggravated most by stationary standing. She reports that low back pain eases with sitting. She reports that she also has constant neck pain that is aggravated by certain movements. She reports chronic neck and back pain that recently worsened 4 months ago without explanation. She reports that previous PT was partially successful. She reports that injections in her low back 11 years ago were very successful. She reports that walking her dog is not painful but walking short distances, especially upright is painful. She reports stationary standing is painful. She reports feeling significantly better with pushing a shopping cart. Patient Goals: decrease pain and maintain an active lifestyle Functional Limitations: standing;walking;rising from a chair;driving (prolonged positions) Prior Level of Function: Independent with restrictions Independent with the following restrictions: chronic pain but functioned better with less pain previously Relevant History Past Relevant Medical Conditions: (scoliosis) Employment: Retired Hobbies / Interests: gardening and walking the dog Home Environment Patient Lives With: Self/Alone Assistance Available: None Home Type: [place] Entry To Home: Stairs;Without Rail Number Of Stairs Into Home: 2 Equipment Owned: Rollator Intake Information: Prescription present Previous Treatment: Injections?;Physical Therapy?;Self prescribed exercises;Exercises per physician;Chiropractor? Falls Interview: No positive findings with falls interview Red Flags Vertebral Fracture Red Flags: Female;Age >70 Vertebral Fracture Clinical Reasoning: Proceed with caution due to the above (1-2) risk factors Abdominal Aortic Aneurysm Clinical Reasoning: No identified risk factors. Cancer Red Flags: History of Cancer Cancer Clinical Reasoning: Proceed with caution (history or skin cancer but currently clear) Infection Clinical Reasoning: No identified risk factors. Cauda Equina Syndrome Clinical Re (more content not included)... [facility] 12-13-2021 History of Presen t illness Narrative Episode Visit Count: 1 Therapist That Will Oversee The Plan Of Care: Chucho Yuan PT Start of Care Date: 12/13/21 Onset Date: 08/14/21 Plan of Care Certification Date: 12/13/21 Next Certification Due Date: 01/17/22 Patient Identified by Name and Date of : Yes REHABILITATION AND SPORTS THERAPY PHYSICAL THERAPY EVALUATION PLAN OF CARE: Assessment: Tasneem Batista presents with chief complaint of cervical and lumbar spine pain with radiculopathy that interferes with standing;walking;rising from a chair;driving (prolonged positions) . She presents with impairments in ADL's, independence in exercise, overall function, range of motion and strength . . Prognosis for therapy is Excellent due to: current objective clinical presentation;within-session changes;good support system/ coping skills. She will benefit from skilled therapy services to meet the goals established for this plan of care as noted below. Classification Low Back Pain Subgroup Classification: Core stabilization subgroup: recommended visits 10. Core Stabilization Subgroup Classification based on: pain with transitional movements (pain with prolonged stationary positioning) Goals for Episode of Care: created on 12/13/21 through 01/17/22 Independent in home exercises. Patient will decrease pain rating by 2 points to meet minimal clinical important difference for numeric pain rating scale. Restore pain-free lumbar ROM to WFL to allow for improved tolerance with transfers. Stand / Walk without limitations, without pain/symptoms. Patient will be able to tolerate standing, walking, rising and driving without increased symptoms. Patient will increase strength of postural muscles to WFL to allow for improved position and activity tolerance. Restore pain free cervical ROM to WFL to allow for improved tolerance for . Drive with no aggravation of pain/symptoms. Patient Goals: decrease pain and maintain an active lifestyle Planned Interventions, Frequency, and Duration: Current Frequency: 2x/week Duration: 5 weeks Total Number of Visits Planned: 10 Planned Treatment Interventions: Therapeutic exercise (25280);Neuromuscular re-education (04079);Manual therapy (41352);Therapeutic activities (54432);Self-half-way management (25788);Patient/Family/Caregiver Education;Body Mechanics Training PLAN FOR NEXT VISIT: Review, correct and progress HEP to tolerance. Continue and progress postural stretching and strengthening using flexion directional preference. Utilize manual therapy prn. Patient demonstrates good understanding of plan of care and treatment. The above goals and plan of care were discussed and agreed upon by patient/family. SUBJECTIVE: Tasneem Batista is a 76 year old female seen today for intermittent low back pain that is aggravated most by stationary standing. She reports that low back pain eases with sitting. She reports that she also has constant neck pain that is aggravated by certain movements. She reports chronic neck and back pain that recently worsened 4 months ago without explanation. She reports that previous PT was partially successful. She reports that injections in her low back 11 years ago were very successful. She reports that walking her dog is not painful but walking short distances, especially upright is painful. She reports stationary standing is painful. She reports feeling significantly better with pushing a shopping cart. Patient Goals: decrease pain and maintain an active lifestyle Functional Limitations: standing;walking;rising from a chair;driving (prolonged positions) Prior Level of Function: Independent with restrictions Independent with the following restrictions: chronic pain but functioned better with less pain previously Relevant History Past Relevant Medical Conditions: (scoliosis) Employment: Retired Hobbies / Interests: gardening and walking the dog Home Environment Patient Lives With: Self/Alone Assistance Available: None Home Type: [place] Entry To Home: Stairs;Without Rail Number Of Stairs Into Home: 2 Equipment Owned: Rollator Intake Information: Prescription present Previous Treatment: Injections ;Physical Therapy ;Self prescribed exercises;Exercises per physician;Chiropractor Falls Interview: No positive findings with falls interview Red Flags Vertebral Fracture Red Flags: Female;Age >70 Vertebral Fracture Clinical Reasoning: Proceed with caution due to the above (1-2) risk factors Abdominal Aortic Aneurysm Clinical Reasoning: No identified risk factors. Cancer Red Flags: History of Cancer Cancer Clinical Reasoning: Proceed with caution (history or skin cancer but currently clear) Infection Clinical Reasoning: No identified risk factors. Cauda Equina Syndrome Clinical Reasoning: No identified risk factors. Cervical Arterial Dysfunction Clinical Reasoning: No identified risk factors Red Flags - Cervical Cancer Red Flags: History of Cancer Cancer Clinical Reasoning: Proceed with caution (history or skin cancer but currently clear) Infection Clinical Reasoning: No identified risk factors. Cervical Arterial Dysfunction Clinical Reasoning: No identified risk factors Spine History Symptoms Location at Onset: Neck;Back Symptoms Since Onset: Unchanging Pain is Worse Always: Standing;Walking;Rising;Prolonge d positions Pain is Better Always: Sitting;Rest (heat) Previous Episodes: Yes Previous Spine Episodes: chronic neck and back pain Sleeping Position: Side lying left Sleep Affected by Pain: Pain awakens Pain: Pain Pain Level: 3 Pain Location: Neck Description: ( annoying hurt ) Frequency: Continuous (constant but varies in intensity. Can zing me to 9/10) Additional Pain Information : Location 2 Pain Level 2: 6 (0/10 at rest sitting currently) Pain Location 2: Low Back/Lumbar Spine - Left;Buttocks - Left;Hip - Left;Thigh - Left Description 2: Sharp;Stabbing Frequency 2: Intermittent;Standing;Walking Post Treatment Pain Post Treatment Pain Level: Better Post Treatment Pain Location: Neck;Low Back/Lumbar Spine - Right;Low Back/Lumbar Spine - Left Post Treatment Pain Description: (better after with less pain secondary to stretching) Post Treatment Symptoms: After session, patient reported feeling better with less pain that she attributed to stretching. PROMIS Scales T-scores: mean of general population = 50. 5 points is clinically meaningfully difference Percentiles provide an indication of how the patient's score ranks in relation to the general population. Higher percentile rankings indicate better function/quality of life. 50th percentile is the average of the general population and indicates half of respondents had a worse score. T-scores: mean of general population = 50. 5 points is clinically meaningfully difference Percentiles provide an indication of how the patient's score ranks in relation to the general population. Higher percentile rankings indicate better function/quality of life. 50th percentile is the average of the general population and indicates half of respondents had a worse score. OBJECTIVE MEASURES WITH LEVEL OF FUNCTION: Posture / Alignment Posture: Forward head;Increased thoracic kyphosis;Rounded shoulders;Slump Effects of Posture Correction: better but difficult to maintain Reflexes - Upper Extremity R Brachioradialis : Normal R Biceps: Normal L Brachioradialis : Normal L Biceps: Normal Reflexes - Lower Extremity R Patellar: Normal L Patellar: Normal Spine Observations R Cervical Spine Palpation Tenderness: Upper trapezius;Levator scapulae L Cervical Spine Palpation Tenderness: Upper trapezius;Levator scapulae R Lumbar Spine Palpation Tenderness: No tenderness noted L Lumbar Spine Palpation Tenderness: No tenderness noted Sensation - Lumbar Sensation: Grossly Intact (numbness in L toes) Lumbar Spine AROM Lumbar Flexion: Normal;Decreased pain Lumbar Extension: Major limitation Lumbar R Side-Bend: Moderate limitation Lumbar L Side-Bend: Moderate limitation;Increased pain Lumbar R Rotation: Minimal limitation Lumbar L Rotation: Normal Sensation - Cervical Spine Cervical Spine Sensation: Grossly Intact Cervical Spine ROM Cervical ROM : Measurement AROM Cervical Flexion AROM (degrees) : 51 Degrees Cervical Extension AROM (degrees) : 51 Degrees Cervical Side-Bend Right AROM (degrees): 38 Degrees Cervical Side-Bend Left AROM (degrees) : 40 Degrees Cervical Rotation Right AROM (degrees) : 82 Degrees Cervical Rotation Left AROM (degrees) : 75 Degrees LE Strength Trunk Strength: Pt's diagnosis, reported functional difficulties, postural deficits and reported chronicity of symptoms indicate that she will benefit from increased core and postural strength. R LE Strength: No asymmetrical myotomal weakness detected in B LEs. L LE Strength: No asymmetrical myotomal weakness detected in B LEs. Special Tests - Hip and Spine Hip and Spine Special Tests: SLR Test SLR Test: Right Negative;Left Positive Education: Education Learning Preferences: Demonstration;Explanation;Perfor kelly;Printed Materials Barriers: None Learning/educational needs: Plan of Care;Home exercise program;Posture;Body Mechanics;Lifestyle changes Education Provided: Yes, see treatment interventions for education provided Education Provided To: Patient Education Mode/Type: Demonstration;Explanation/Discus bird;Literature/Printed Materials;Performance Response to Education/Teach Back: States/Identifies;Requires Review/Additional Education;Return Demonstration TREATMENT: PT Treatment Interventions: Therapeutic Exercise Evaluation Therapeutic Exercise: 1: Pt was educated on anatomy of cervical and lumbar spines, likely source of symptoms and rationale for proposed treatment plan. Pictures were used to educate pt on anatomy. She was educated proper posture and the importance of neutral spine without over-correcting. Pt was educated on her directional preference and the effects of flexion and extension on lumbar and cervical spines. She was urged to stop any exercise that causes increased pain. 2: *supine B SKTC 3x30 seconds 3: *supine DKTC 3x30 seconds 4: *seated B UT stretch 3x30 seconds 5: *seated B levator scapulae stretch 3x30 seconds Skilled Intervention: Patient was educated in proper exercise technique and purpose for exercises. Reviewed and educated patient on additions/changes for home exercise program as above (*). Skilled judgment was provided in selection of appropriate interventions. Provided written instruction for home exercise program to facilitate proper performance and compliance. Correct performance of therapeutic exercises was facilitated with verbal, visual and tactile cuing. Patient education as noted. Billing * Evaluation Moderate Complexity: 1 Unit Therapeutic Exercise Treatment Minutes: 15 Total Treatment Time Minutes (timed/untimed): 15 Chucho Yuan PT documented in this encounter [facility] 12-07-2021 Note HNO ID: [id number] Author: RT Dano(R) Service: Nuclear Medicine Author Type: Technologist Type: Progress Notes Filed: 12/07/2021 11:32 AM Note Text: Radiology Service Progress Note PATIENT NAME: Tasneem Batista DATE OF SERVICE: December 07, 2021 TIME: 11:18 AM PATIENT IDENTITY VERIFICATION COMPLETED USING TWO (2) IDENTIFIERS: Name and Date of confirmed by patient verbally. FALL SCREENING: Has the patient had 2 falls in the last year or 1 fall with injury or currently using an Ambulatory Assistive Device (Walker, Cane, Wheelchair, Crutches, etc.)? No PATIENT GENDER DATA: Female. status: : No status: NO. PATIENT RELEVANT IMPLANT DATA REVIEWED: Not Applicable RADIOLOGY DEPARTMENT: General X-ray: Exam(s) Completed: Spine X-Ray(s): Lumbar AP / LAT / L5-S1 PERIPHERAL IV DATA: Not applicable SIGNED BY: RT Dano(R) December 07, 2021 11:18 AM [facility] 12-06-2021 Note HNO ID: [id number] Author: Franck Hall, DO Service: ? Author Type: Physician Type: Progress Notes Filed: 12/08/2021 12:11 PM Note Text: Spine Care Path Radicular Leg Pain - Chronic (> 12 weeks) Initial Exam SUBJECTIVE HISTORY OF PRESENT ILLNESS: Tasneem Batista is a 76 year old female who presents with a chief complaint of low back and leg pain and is self-referred. Patient presents today regarding low back and left leg pain. Was last seen in 2011. Had previously undergone an L4-L5 interlaminar epidural injection as well as a bilateral L3, L4 medial branch and L5 dorsal rami blocks on 2 separate occasions with good improvement in her symptoms. Patient returns today since we made her better at that time. She reports for the last several years has seen significant change in her symptoms reports pain radiates across the lower lumbar spine as well as into the left buttock posterior thigh not typically past the calf or into the foot. Reports able to walk without significant difficulty, however, periods of inactivity and then trying to walk again seem to exacerbate her symptoms. Occasionally symptoms get better with ambulation Other Issues Addressed at the Visit Today: None. also has dealt with cervical spine pain largely mechanical and myofascial in nature. Patient previously undergone bilateral L3, L4, L5 medial branch blocks and dorsal ramus blocks respectively. This procedure was performed in 2011. Patient is uncertain whether she obtained any significant improvement with this injection Precipitating Event: None PAIN EVALUATION 12/06/2021 1221 Pain Level: 3 Pain Location: ? low back and left leg Description: Aching;Sharp;Dull Duration Amount of Time: 2 Duration Units: Years Frequency: Continuous Intervention/Comfort measure: Medication Pain Radiation: See HPI Aggravating Factors: Prolonged stnding Alleviating Factors: Heat application, ambulation Pain Ratio: 50 % back pain, 50 % leg pain usually back more consistently bothersome. Prior Therapy: ? Medications: Gabapentin ? Heat Litigation: No Workers' Compensation: No YELLOW AND BLUE FLAGS No-Neg Attitude; Back Pain is Disabling No-Avoiding Activity (for Fear of Pain) No-Depression or Anxiety Disorders No-Social Problems No-Substance Use Disorder No-Job Dissatisfaction No-Financial Disincentives Patient Entered Questionnaires PROMIS Score Percentiles Percentiles provide an indication of how the patient's score ranks in relation to the general population. Higher percentile rankings indicate better function/quality of life. 50th percentile is the average of the general population and indicates half of respondents had a worse score. Depression Screening: PHQ-9 09/21/2011 02/15/2012 06/27/2012 Score 0 0 0 PHQ-9 Self-Harm (Item 9) response options: 0 Not at all 1 Several days 2 More than half the days 3 Nearly every day PHQ-9 Levels: 0-4 No - mild depression 5-9 Mild depression 10-14 Moderate depression 15-19 Moderately severe depression 20-27 Severe depression ACTIVE PROBLEM LIST Spinal Stenosis, Lumbar Region, Without Neurogenic Claudication Hyperlipidemia With Target Ldl Less Than 100 Pat (Paroxysmal Atrial Tachycardia) (Hcc) Tubular Adenoma of Colon Type 1 Diabetes Mellitus Without Complication, Without Long-Term Current Use of Insulin (Hcc) Bcc (Basal Cell Carcinoma of Skin) Radiculopathy, Cervical Region PAST MEDICAL HISTORY Diagnosis Date - Acute gastritis without mention of hemorrhage 09/12/2011 - Anemia 09/08/2011 - BCC (basal cell carcinoma of skin) 08/15/2016 - Benign neoplasm of colon 09/12/2011 - Diverticulosis of colon (without mention of hemorrhage) - Gait abnormality 07/21/2009 - Hiatal hernia 09/12/2011 - Internal hemorrhoids without mention of complication - Irregular heartbeat - Obesity - Pancreatitis 1994 gallstone - Personal history of colonic polyps - Stenosis of lumbosacral spine PAST SURGICAL HISTORY Procedure Laterality Date - ARTHRP KNE CONDYLEANDPLATU MEDIALANDLAT COMPARTMENTS 2004 Knee replacement, total, left - BLEPHAROPLASTY EXTENSIVE 2004 Bilateral eyes - BREAST BIOPSY 1995 - CARPAL TUNNEL 2009 bilateral wrist - CHOLECYSTECTOMY 1993 Cholecystectomy - COLONOSCOPY FLX DX W/COLLJ SPEC WHEN PFRMD 07/19/10 - COLSC FLX W/REMOVAL LESION BY HOT BX FORCEPS 09/12/11` ascending colon, f/u 3 years - EGD TRANSORAL BIOPSY SINGLE/MULTIPLE 09/12/11 gastritis with erosions, hiatal hernia with erosions - EXCISION GANGLION WRIST DORSAL/VOLAR PRIMARY 08/06/2012 Excision of deep subfascial mass right wrist - TONSILLECTOMY PRIMARY/SECONDARY Tonsillectomy - TOTAL ABDOMINAL HYSTERECT W/WO RMVL TUBE OVARY 2000 Hysterectomy, [facility] Social History Tobacco Use - Smoking status: Never Smoker - Smokeless tobacco: Never Used Substance Use Topics - Alcohol use: No - Drug use: No FAMILY HISTORY Problem Relation Age (more content not included)... [facility] 12-06-2021 Instructions Franck Hall DO - 12/06/2021 12:59 PM EDT Images from the original note were not included. Chronic Lumbar Radiculopathy (Leg Pain) Overview: Symptoms of a pinched nerve in the leg (lumbar radiculopathy) include numbness, tingling and even weakness. Leg pain is usually worse than back pain. The cause of nerve impingement may include a protruding (herniated) disc, bony or joint overgrowth or both. Lumbar spinal stenosis is a condition which results from narrowing of the spinal canal which contains the lower spinal nerves. This condition typically produces leg symptoms when standing or walking which are relieved by sitting. The prognosis for a full recovery with conservative (non-surgical) treatment is good in most persons. X-rays or scans (MRI or CT) are not required in most patients before starting treatment but may be performed if symptoms aren't improving after about 6 weeks despite medical treatment. Treatment: Pain-relieving anti-inflammatory medications such as ibuprofen or naproxen are recommended. Acetaminophen (Tylenol) is recommended if you cannot take anti-inflammatory medications. Medications effective for nerve pain such as gabapentin (Neurontin), pregabalin (Lyrica) or some antidepressants may be helpful for leg pain. A short course of oral steroids (prednisone or Medrol) may help alleviate severe, acute inflammation. For persistent pain despite oral medications and physical therapy, an epidural corticosteroid injection ( block ) may be recommended if an MRI or CT scan confirms nerve impingement ( pinched nerve ). Remaining as active as possible and resuming normal activities are recommended to speed recovery. Physical therapy is recommended for development of an active exercise program. If weakness is developing in the affected leg or if pain is severe despite medical treatment, a surgical consultation may be recommended if an MRI or CT scan confirms nerve impingement. Follow Up See your health care provider if: The pain doesn't improve or worsens You notice increasing weakness in the leg(s) You experience problems with balance or walking You notice difficulty passing urine or controlling your bowels These are warning signs or red flags that require prompt, urgent medical attention. SIGNATURE: Franck Hall DO PATIENT NAME: Tasneem Batista DATE: December 06, 2021 TIME: 12:59 PM documented in this encounter [facility] 12-06-2021 History of Presen t illness Narrative Images from the original note were not included. Spine Care Path Radicular Leg Pain - Chronic (> 12 weeks) Initial Exam SUBJECTIVE HISTORY OF PRESENT ILLNESS: Tasneem Batista is a 76 year old female who presents with a chief complaint of low back and leg pain and is self-referred. Patient presents today regarding low back and left leg pain. Was last seen in 2011. Had previously undergone an L4-L5 interlaminar epidural injection as well as a bilateral L3, L4 medial branch and L5 dorsal rami blocks on 2 separate occasions with good improvement in her symptoms. Patient returns today since we made her better at that time. She reports for the last several years has seen significant change in her symptoms reports pain radiates across the lower lumbar spine as well as into the left buttock posterior thigh not typically past the calf or into the foot. Reports able to walk without significant difficulty, however, periods of inactivity and then trying to walk again seem to exacerbate her symptoms. Occasionally symptoms get better with ambulation Other Issues Addressed at the Visit Today: None. also has dealt with cervical spine pain largely mechanical and myofascial in nature. Patient previously undergone bilateral L3, L4, L5 medial branch blocks and dorsal ramus blocks respectively. This procedure was performed in 2011. Patient is uncertain whether she obtained any significant improvement with this injection Precipitating Event: None PAIN EVALUATION 12/06/2021 1221 Pain Level: 3 Pain Location: low back and left leg Description: Aching;Sharp;Dull Duration Amount of Time: 2 Duration Units: Years Frequency: Continuous Intervention/Comfort measure: Medication Pain Radiation: See HPI Aggravating Factors: Prolonged stnding Alleviating Factors: Heat application, ambulation Pain Ratio: 50 % back pain, 50 % leg pain usually back more consistently bothersome. Prior Therapy: Medications: Gabapentin Heat Litigation: No Workers' Compensation: No YELLOW & BLUE FLAGS No-Neg Attitude; Back Pain is Disabling No-Avoiding Activity (for Fear of Pain) No-Depression or Anxiety Disorders No-Social Problems No-Substance Use Disorder No-Job Dissatisfaction No-Financial Disincentives Patient Entered Questionnaires PROMIS Score Percentiles Percentiles provide an indication of how the patient's score ranks in relation to the general population. Higher percentile rankings indicate better function/quality of life. 50th percentile is the average of the general population and indicates half of respondents had a worse score. Depression Screening: PHQ-9 09/21/2011 02/15/2012 06/27/2012 Score 0 0 0 PHQ-9 Self-Harm (Item 9) response options: 0 Not at all 1 Several days 2 More than half the days 3 Nearly every day PHQ-9 Levels: 0-4 No - mild depression 5-9 Mild depression 10-14 Moderate depression 15-19 Moderately severe depression 20-27 Severe depression ACTIVE PROBLEM LIST Spinal Stenosis, Lumbar Region, Without Neurogenic Claudication Hyperlipidemia With Target Ldl Less Than 100 Pat (Paroxysmal Atrial Tachycardia) (Hcc) Tubular Adenoma of Colon Type 1 Diabetes Mellitus Without Complication, Without Long-Term Current Use of Insulin (Hcc) Bcc (Basal Cell Carcinoma of Skin) Radiculopathy, Cervical Region PAST MEDICAL HISTORY Diagnosis Date Acute gastritis without mention of hemorrhage 09/12/2011 Anemia 09/08/2011 BCC (basal cell carcinoma of skin) 08/15/2016 Benign neoplasm of colon 09/12/2011 Diverticulosis of colon (without mention of hemorrhage) Gait abnormality 07/21/2009 Hiatal hernia 09/12/2011 Internal hemorrhoids without mention of complication Irregular heartbeat Obesity Pancreatitis 1995 gallstone Personal history of colonic polyps Stenosis of lumbosacral spine PAST SURGICAL HISTORY Procedure Laterality Date ARTHRP KNE CONDYLE&PLATU MEDIAL&LAT COMPARTMENTS 2004 Knee replacement, total, left BLEPHAROPLASTY EXTENSIVE 2004 Bilateral eyes BREAST BIOPSY 1996 CARPAL TUNNEL 2009 bilateral wrist CHOLECYSTECTOMY 1993 Cholecystectomy COLONOSCOPY FLX DX W/COLLJ SPEC WHEN PFRMD 07/19/10 COLSC FLX W/REMOVAL LESION BY HOT BX FORCEPS 09/12/11` ascending colon, f/u 3 years EGD TRANSORAL BIOPSY SINGLE/MULTIPLE 09/12/11 gastritis with erosions, hiatal hernia with erosions EXCISION GANGLION WRIST DORSAL/VOLAR PRIMARY 08/06/2012 Excision of deep subfascial mass right wrist TONSILLECTOMY PRIMARY/SECONDARY <AGE 11 1950 Tonsillectomy TOTAL ABDOMINAL HYSTERECT W/WO RMVL TUBE OVARY 2000 Hysterectomy, [facility] Social History Tobacco Use Smoking status: Never Smoker Smokeless tobacco: Never Used Substance Use Topics Alcohol use: No Drug use: No FAMILY HISTORY Problem Relation Age of Onset Stroke Father COPD Mother nonsmoker. developed cirrhosis from steroids ALLERGIES Allergen Reactions Contrast Dye Other: See Comments Face flushing and redness Penicillins Rash Sulfa (Sulfonamide * Rash Vicodin [Hydrocodon* Intolerance CURRENT MEDICATIONS: rosuvastatin (CRESTOR) 40 mg tablet Take 40 mg by mouth once daily. losartan (COZAAR) 50 mg tablet Take 50 mg by mouth once daily. oxybutynin ER (DITROPAN XL) 10 mg 24 hr tablet Take 10 mg by mouth once daily. cetirizine (ZYRTEC) 10 mg tablet Take 1 tablet by mouth once daily. insulin glargine (LANTUS) 100 unit/mL (3 mL) inpn 10-12 Units daily at bedtime. gabapentin (NEURONTIN) 300 mg capsule Take 1 capsule by mouth daily at bedtime. blood sugar diagnostic ([employer] ULTRA TEST) test strip Use as instructed. Tests blood sugars 5 times a day. Dx: 250.01. insulin needles, DISPOSABLE, (PEN NEEDLE) 31 gauge x 5/16 ndle Use one needle per dose. 4 per day. Cholecalciferol, Vitamin D3, 1,000 unit cap Take 2 capsules by mouth once daily. Lancets (ONE TOUCH DELICA) lancets Test blood sugar(s) 4 daily. Dx: 250.02. Insulin: Yes Insulin Lispro, Human, (HUMALOG KWIKPEN) 100 unit/mL inpn Use 5 units with each meal ketoconazole (NIZORAL) 2 % shampoo Apply 1 application to affected area once daily as needed. lisinopril (PRINIVIL) 10 mg tablet Take 1 tablet by mouth once daily. atorvastatin (LIPITOR) 40 mg tablet Take 1 tablet by mouth once daily. REVIEW OF SYSTEMS: Review of Systems Constitutional: Negative Eyes: Negative Hent: Negative Cardiovascular: Negative Respiratory: Negative GI: Negative : Negative Endocrine: Negative Musculoskeletal Positive for Back Pain and Stiff Joints Negative for Joint Swelling and Muscle Pain Integumentary: Negative Heme/Lymph: Negative Allergy/Immunologic: Negative Neurologic: Negative Psychiatric: Negative Patient's Review of Systems has been reviewed with the patient and updated as appropriate. OBJECTIVE: PHYSICAL EXAM Ht 160 cm (5' 3 ) Wt 66.7 kg (147 lb) BMI 26.04 kg/m GENERAL APPEARANCE: Well appearing, well-hydrated, well nourished and alert SKIN: Head, neck, trunk, and extremities dry, intact and without lesions HEART: Peripheral pulses: normal, 2+ bilaterally and symmetric, Edema: No LUNGS: even and non-labored breathing, normal chest excursion LYMPHATICS: No palpable lymphadenopathy in the neck, axilla, or groin NEURO/PSYCH: oriented to time, place, and person, speech normal, mental status intact GAIT: normal, toe walking normal, heel walking normal, able to tandem gait POSTURE: Posture and spinal curves are normal PALPATION: paraspinal tenderness; lumbar bilateral MUSCULOSKELETAL: ww Extended Low Back & Leg Exam Lumbar Range of Motion Flexion 10-12 inches from floor Extension Restricted RIGHT LEFT Lateral Bending Limited Limited Oblique Extension Decreased Decreased Leg Raise Straight Leg Raise Negative Positive Contralateral Straight Leg Raise Negative Negative DTRs Knee Hypo-reflexive Hypo-reflexive Ankle Hypo-reflexive Hypo-reflexive Medial Hamstring Hypo-reflexive Hypo-reflexive Babinski normal normal Strength of Lower Extremities Extensor Hallux Longus 5/5 5/5 Ankle Dorsiflexion 5/5 5/5 Ankle Plantarflexion 5/5 5/5 Knee Extension 5/5 5/5 Jane's Exam: Deferred Hip Range of Motion RIGHT LEFT Flexion Normal Normal Extension Normal Normal Abduction Normal Normal Adduction Normal Normal Internal Rotation Mildly Restricted Mildly Restricted External Rotation Mildly Restricted Mildly Restricted Hip Exam RIGHT LEFT RAYMON Exam Normal Normal Trochanteric Bursa Tenderness Normal Normal Gaenslen's Maneuver Normal Normal Tiny's Test (IT-Band Pathology) Normal Normal Cervical Range of Motion Flexion Normal Extension Restricted RIGHT LEFT Rotation Limited ROM with pain Limited ROM with pain Lateral Bend Limited ROM with pain Limited ROM with pain Upper Body Reflex Exam RIGHT LEFT Reflex Status Reflex Status Biceps 1+ Hypo-active 1+ Hypo-active Triceps 1+ Hypo-active 1+ Hypo-active Brachioradialis 1+ Hypo-active 1+ Hypo-active Inverted Radial 1+ Hypo-active 1+ Hypo-active Borden's Sign absent absent Upper Extremity Strength RIGHT LEFT Strength (MMT) Strength (MMT) Shoulder Abduction 5/5 5/5 Biceps 5/5 5/5 Triceps 5/5 5/5 Resisted Suppination 5/5 5/5 Wrist Extension 5/5 5/5 Interossei 5/5 5/5 Shoulder Range of Motion RIGHT LEFT Flexion Normal Normal Extension Normal Normal Abduction Normal Normal Adduction Normal Normal Internal Rotation Mildly Restricted Mildly Restricted External Rotation Mildly Restricted Mildly Restricted Shoulder Tests N/A NEUROSENSORY: Left L5 sensory deficits Neuro Tests: None Data Review: Reviewed CT of the abdomen from 2011. Severe degenerative changes lumbar facet joints and disc changes multilevel. ASSESSMENT/PLAN (M54.12) Radiculopathy, cervical region (primary encounter diagnosis) Comment: Patient with cervical spine pain and mild radicular complaints. Will place patient in for PT of the cervical spine and lumbar spine. 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 Her pain was previously mechanical in nature likely related to there multilevel degenerative disc disease and lumbar spondylosis. Previoulsy was not dealing with much in the way of radicular symptoms. Now presenting with Left radicular lower limb symptoms. Will see how she does with Pt and and afterwards if symptoms no better we will likely proceed with advanced imaging in the MRI. Plan: PATIENT PLACED ON SPINE CARE PATH, XR LUMBAR LIMITED 2V AP/LAT, CONSULT TO PHYSICAL THERAPY Imaging Ordered: Lumbar x-ray ordered to evaluate lumbar anatomy SIGNATURE: Franck Hall DO PATIENT NAME: Tasneem Batista DATE: December 06, 2021 TIME: 12:59 PM documented in this encounter [facility] documented as of this encounter (statuses as of 12/08/2021) [facility]03-08-2016 History of Past illness Narrative* Problem Noted Date Resolved Date Type 1 diabetes mellitus without complication 02/09/2016 Type 1 diabetes mellitus without complications 0 03/27/2014 11/09/2015 Type 1 diabetes mellitus 10/12/2011 016 Overview: JAKUB presentation in 2011. Insulin:carbohyrate ratio 1:2 at breakfast, 1:3 at lunch and supper, insulin sensitivity index 1:30. Palpitations 05/12/2010 02/03/2013 Overview: Dx unclear. Seen by Dr Alana Wilson in [place]. Told normal part of aging Cardizem started. Nuclear stress testing ?2004 normal ECHO 2008 (no report) documented as of this encounter (statuses as of 12/14/2021) [facility]03-[facility]2016 History of Past illness Narrative* Problem Noted Date Resolved Date Type 1 diabetes mellitus without complication 02/09/2016 Type 1 diabetes mellitus without complications 0 03/27/2014 11/09/2015 Type 1 diabetes mellitus 10/12/2011 016 Overview: JAKUB presentation in 2011. Insulin:carbohyrate ratio 1:2 at breakfast, 1:3 at lunch and supper, insulin sensitivity index 1:30. Palpitations 05/12/2010 02/03/2013 Overview: Dx unclear. Seen by Dr Alana Wilson in [place]. Told normal part of aging Cardizem started. Nuclear stress testing ?2004 normal ECHO 2008 (no report) documented as of this encounter (statuses as of 12/15/2021) [facility]03-[facility]2016 History of Past illness Narrative* Problem Noted Date Resolved Date Type 1 diabetes mellitus without complication 02/09/2016 Type 1 diabetes mellitus without complications 0 03/27/2014 11/09/2015 Type 1 diabetes mellitus 10/12/2011 016 Overview: JAKUB presentation in 2011. Insulin:carbohyrate ratio 1:2 at breakfast, 1:3 at lunch and supper, insulin sensitivity index 1:30. Palpitations 05/12/2010 02/03/2013 Overview: Dx unclear. Seen by Dr Alana Wilson in [place]. Told normal part of aging Cardizem started. Nuclear stress testing ?2004 normal ECHO 2008 (no report) documented as of this encounter (statuses as of 12/21/2021) [facility]03-[facility]2016 History of Past illness Narrative* Problem Noted Date Resolved Date Type 1 diabetes mellitus without complication 02/09/2016 Type 1 diabetes mellitus without complications 0 03/27/2014 11/09/2015 Type 1 diabetes mellitus 10/12/2011 016 Overview: JAKUB presentation in 2011. Insulin:carbohyrate ratio 1:2 at breakfast, 1:3 at lunch and supper, insulin sensitivity index 1:30. Palpitations 05/12/2010 02/03/2013 Overview: Dx unclear. Seen by Dr Alana Wilson in [place]. Told normal part of aging Cardize started. Nuclear stress testing ?2004 normal ECHO 2008 (no report) documented as of this encounter (statuses as of 12/29/2021) [facility]03[facility] History of Past illness Narrative* Problem Noted Date Resolved Date Type 1 diabetes mellitus without complication 02/09/2016 Type 1 diabetes mellitus without complications 0 03/27/2014 11/09/2015 Type 1 diabetes mellitus 10/12/2011 016 Overview: JAKUB presentation in 2011. Insulin:carbohyrate ratio 1:2 at breakfast, 1:3 at lunch and supper, insulin sensitivity index 1:30. Palpitations 05/12/2010 02/03/2013 Overview: Dx unclear. Seen by Dr Alana Wilson in [place]. Told normal part of aging Cardize started. Nuclear stress testing ?2004 normal ECHO 2008 (no report) documented as of this encounter (statuses as of 01/09/2022) [facility] History of Past illness Narrative* Problem Noted Date Resolved Date Type 1 diabetes mellitus without complication 02/09/2016 Type 1 diabetes mellitus without complications 0 03/27/2014 11/09/2015 Type 1 diabetes mellitus 10/12/2011 016 Overview: JAKUB presentation in 2011. Insulin:carbohyrate ratio 1:2 at breakfast, 1:3 at lunch and supper, insulin sensitivity index 1:30. Palpitations 05/12/2010 02/03/2013 Overview: Dx unclear. Seen by Dr Alana Wilson in [place]. Told normal part of aging Cardizem started. Nuclear stress testing ?2004 normal ECHO 2008 (no report) documented as of this encounter (statuses as of 01/10/2022) [facility]03[facility]2016 History of Past illness Narrative* Problem Noted Date Resolved Date Type 1 diabetes mellitus without complication 02/09/2016 Type 1 diabetes mellitus without complications 0 03/27/2014 11/09/2015 Type 1 diabetes mellitus 10/12/2011 016 Overview: JAKUB presentation in 2011. Insulin:carbohyrate ratio 1:2 at breakfast, 1:3 at lunch and supper, insulin sensitivity index 1:30. Palpitations 05/12/2010 02/03/2013 Overview: Dx unclear. Seen by Dr Alana Wilson in [place]. Told normal part of aging Cardizem started. Nuclear stress testing ?2004 normal ECHO 2008 (no report) documented as of this encounter (statuses as of 01/11/2022) [facility] History of Past illness Narrative* Problem Noted Date Resolved Date Type 1 diabetes mellitus without complication 02/09/2016 Type 1 diabetes mellitus without complications 0 03/27/2014 11/09/2015 Type 1 diabetes mellitus 10/12/2011 016 Overview: JAKUB presentation in 2011. Insulin:carbohyrate ratio 1:2 at breakfast, 1:3 at lunch and supper, insulin sensitivity index 1:30. Palpitations 05/12/2010 02/03/2013 Overview: Dx unclear. Seen by Dr Alana Wilson in [place]. Told normal part of aging Cardizem started. Nuclear stress testing ?2004 normal ECHO 2008 (no report) documented as of this encounter (statuses as of 01/16/2022) [facility] History of Past illness Narrative* Problem Noted Date Resolved Date Type 1 diabetes mellitus without complication 02/09/2016 Type 1 diabetes mellitus without complications 0 03/27/2014 11/09/2015 Type 1 diabetes mellitus 10/12/2011 016 Overview: JAKUB presentation in 2011. Insulin:carbohyrate ratio 1:2 at breakfast, 1:3 at lunch and supper, insulin sensitivity index 1:30. Palpitations 05/12/2010 02/03/2013 Overview: Dx unclear. Seen by Dr Alana Wilson in [place]. Told normal part of aging Cardizem started. Nuclear stress testing ?2004 normal ECHO 2008 (no report) documented as of this encounter (statuses as of 01/17/2022) [facility] History of Past illness Narrative* Problem Noted Date Resolved Date Type 1 diabetes mellitus without complication 02/09/2016 Type 1 diabetes mellitus without complications 0 03/27/2014 11/09/2015 Type 1 diabetes mellitus 10/12/2011 016 Overview: JAKUB presentation in 2011. Insulin:carbohyrate ratio 1:2 at breakfast, 1:3 at lunch and supper, insulin sensitivity index 1:30. Palpitations 05/12/2010 02/03/2013 Overview: Dx unclear. Seen by Dr Alana Wilson in [place]. Told normal part of aging Cardizem started. Nuclear stress testing ?2004 normal ECHO 2008 (no report) documented as of this encounter (statuses as of 02/08/2022) [facility] History of Past illness Narrative* Problem Noted Date Resolved Date Type 1 diabetes mellitus without complication 02/09/2016 Type 1 diabetes mellitus without complications 0 03/27/2014 11/09/2015 Type 1 diabetes mellitus 10/12/2011 016 Overview: AJKUB presentation in 2011. Insulin:carbohyrate ratio 1:2 at breakfast, 1:3 at lunch and supper, insulin sensitivity index 1:30. Palpitations 05/12/2010 02/03/2013 Overview: Dx unclear. Seen by Dr Alana Wilson in [place]. Told normal part of aging Cardizem started. Nuclear stress testing ?2004 normal ECHO 2008 (no report) documented as of this encounter (statuses as of 02/11/2022) [facility] History of Past illness Narrative* Problem Noted Date Resolved Date Type 1 diabetes mellitus without complication 02/09/2016 Type 1 diabetes mellitus without complications 0 03/27/2014 11/09/2015 Type 1 diabetes mellitus 10/12/2011 016 Overview: JAKUB presentation in 2011. Insulin:carbohyrate ratio 1:2 at breakfast, 1:3 at lunch and supper, insulin sensitivity index 1:30. Palpitations 05/12/2010 02/03/2013 Overview: Dx unclear. Seen by Dr Alana Wilson in [place]. Told normal part of aging Cardizem started. Nuclear stress testing ?2004 normal ECHO 2008 (no report) documented as of this encounter (statuses as of 02/25/2022) [facility] History of Past illness Narrative* Problem Noted Date Resolved Date Type 1 diabetes mellitus without complication 02/09/2016 Type 1 diabetes mellitus without complications 0 03/27/2014 11/09/2015 Type 1 diabetes mellitus 10/12/2011 016 Overview: JAKUB presentation in 2011. Insulin:carbohyrate ratio 1:2 at breakfast, 1:3 at lunch and supper, insulin sensitivity index 1:30. Palpitations 05/12/2010 02/03/2013 Overview: Dx unclear. Seen by Dr Alana Wilson in [place]. Told normal part of aging Cardizem started. Nuclear stress testing ?2004 normal ECHO 2008 (no report) documented as of this encounter (statuses as of 02/27/2022) [facility] History of Past illness Narrative* Problem Noted Date Resolved Date Type 1 diabetes mellitus without complication 02/09/2016 Type 1 diabetes mellitus without complications 0 03/27/2014 11/09/2015 Type 1 diabetes mellitus 10/12/2011 016 Overview: JAKUB presentation in 2011. Insulin:carbohyrate ratio 1:2 at breakfast, 1:3 at lunch and supper, insulin sensitivity index 1:30. Palpitations 05/12/2010 02/03/2013 Overview: Dx unclear. Seen by Dr Alana Wilson in [place]. Told normal part of aging Cardizem started. Nuclear stress testing ?2004 normal ECHO 2008 (no report) documented as of this encounter (statuses as of 03/13/2022) [facility] History of Past illness Narrative* Problem Noted Date Resolved Date Type 1 diabetes mellitus without complication 02/09/2016 Type 1 diabetes mellitus without complications 0 03/27/2014 11/09/2015 Type 1 diabetes mellitus 10/12/2011 016 Overview: JAKUB presentation in 2011. Insulin:carbohyrate ratio 1:2 at breakfast, 1:3 at lunch and supper, insulin sensitivity index 1:30. Palpitations 05/12/2010 02/03/2013 Overview: Dx unclear. Seen by Dr Alana Wilson in [place]. Told normal part of aging Cardizem started. Nuclear stress testing ?2004 normal ECHO 2008 (no report) documented as of this encounter (statuses as of 05/05/2022) [facility] History of Past illness Narrative* Problem Noted Date Resolved Date Type 1 diabetes mellitus without complication 02/09/2016 Type 1 diabetes mellitus without complications 0 03/27/2014 11/09/2015 Type 1 diabetes mellitus 10/12/2011 016 Overview: JAKUB presentation in 2011. Insulin:carbohyrate ratio 1:2 at breakfast, 1:3 at lunch and supper, insulin sensitivity index 1:30. Palpitations 05/12/2010 02/03/2013 Overview: Dx unclear. Seen by Dr Alana Wilson in [place] Told normal part of aging Cardizem started. Nuclear stress testing ?2004 normal ECHO 2008 (no report) documented as of this encounter (statuses as of 06/06/2022) [facility] History of Past illness Narrative* Problem Noted Date Resolved Date Type 1 diabetes mellitus without complication 02/09/2016 Type 1 diabetes mellitus without complications 0 03/27/2014 11/09/2015 Type 1 diabetes mellitus 10/12/2011 016 Overview: JAKUB presentation in 2011. Insulin:carbohyrate ratio 1:2 at breakfast, 1:3 at lunch and supper, insulin sensitivity index 1:30. Palpitations 05/12/2010 02/03/2013 Overview: Dx unclear. Seen by Dr Alana Wilson in [place]. Told normal part of aging Cardizem started. Nuclear stress testing ?2004 normal ECHO 2008 (no report) documented as of this encounter (statuses as of 06/28/2022) [facility]03[facility]2016 History of Past illness Narrative* Problem Noted Date Diagnosed Date Resolved Date Type 1 diabetes mellitus without complication 11/09/19 16 02/09/2016 Type 1 diabetes mellitus wit hout complications 03/27/2014 11/09/2015 Type 1 diabetes mellitus 10/12/201104/2016 Overview: JAKUB presentation in 2011. Insulin:carbohyrate ratio 1:2 at breakfast, 1:3 at lunch and supper, insulin sensitivity index 1:30. Palpitations 05/12/2010 02/03/2013 Overview: Dx unclear. Seen by Dr Alana Wilson in [place]. Told normal part of aging Cardizem started. Nuclear stress testing ?2004 normal ECHO 2008 (no report) documented as of this encounter (statuses as of 03/14/2023) [facility] History of Past illness Narrative* Problem Noted Date Diagnosed Date Resolved Date Type 1 diabetes mellitus without complication 11/09/19 16 02/09/2016 Type 1 diabetes mellitus wit hout complications 03/27/2014 11/09/2015 Type 1 diabetes mellitus 10/12/201104/2016 Overview: JAKUB presentation in 2011. Insulin:carbohyrate ratio 1:2 at breakfast, 1:3 at lunch and supper, insulin sensitivity index 1:30. Palpitations 05/12/2010 02/03/2013 Overview: Dx unclear. Seen by Dr Alana Wilson in [place] Told normal part of aging Cardizem started. Nuclear stress testing ?2004 normal ECHO 2008 (no report) documented as of this encounter (statuses as of 03/14/2023) [facility]03[facility] History of Past illness Narrative* Problem Noted Date Diagnosed Date Resolved Date Type 1 diabetes mellitus without complication 11/09/19 16 02/09/2016 Type 1 diabetes mellitus wit hout complications 03/27/2014 11/09/2015 Type 1 diabetes mellitus 10/12/201104/2016 Overview: JAKUB presentation in 2011. Insulin:carbohyrate ratio 1:2 at breakfast, 1:3 at lunch and supper, insulin sensitivity index 1:30. Palpitations 05/12/2010 02/03/2013 Overview: Dx unclear. Seen by Dr Alana Wilson in [place]. Told normal part of aging Cardizem started. Nuclear stress testing ?2004 normal ECHO 2008 (no report) documented as of this encounter (statuses as of 07/25/2023) [facility]2016 History of Past illness Narrative* Problem Noted Date Diagnosed Date Resolved Date Type 1 diabetes mellitus without complication 11/09/19 16 02/09/2016 Type 1 diabetes mellitus wit hout complications 03/27/2014 11/09/2015 Type 1 diabetes mellitus 10/12/201104/2016 Overview: JAKUB presentation in 2011. Insulin:carbohyrate ratio 1:2 at breakfast, 1:3 at lunch and supper, insulin sensitivity index 1:30. Palpitations 05/12/2010 02/03/2013 Overview: Dx unclear. Seen by Dr Alana Wilson in [place]. Told normal part of aging Cardizem started. Nuclear stress testing ?2004 normal ECHO 2008 (no report) documented as of this encounter (statuses as of 08/02/2023) [facility]03[facility]2016 History of Past illness Narrative* Problem Noted Date Diagnosed Date Resolved Date Type 1 diabetes mellitus without complication 11/09/19 16 02/09/2016 Type 1 diabetes mellitus wit hout complications 03/27/2014 11/09/2015 Type 1 diabetes mellitus 10/12/201104/2016 Overview: JAKUB presentation in 2011. Insulin:carbohyrate ratio 1:2 at breakfast, 1:3 at lunch and supper, insulin sensitivity index 1:30. Palpitations 05/12/2010 02/03/2013 Overview: Dx unclear. Seen by Dr Alana Wilson in [place]. Told normal part of aging Cardizem started. Nuclear stress testing ?2004 normal ECHO 2008 (no report) documented as of this encounter (statuses as of 08/09/2023) [facility] Diagnosis Radiculopathy, cervical region- Primary Brachial neuritis or radiculitis nos Intervertebral 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 Thoracic or lumbosacral neuritis or radiculitis, unspecified [facility] Diagnosis Radiculopathy, cervical region Brachial neuritis or radiculitis nos Intervertebral 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 Thoracic or lumbosacral neuritis or radiculitis, unspecified [facility] Radiculopathy, cervical region- Primary Brachial neuritis or radiculitis nos Spinal stenosis, lumbar region, without neurogenic claudication [facility] Diagnosis Radiculopathy, cervical region- Primary Brachial neuritis or radiculitis nos Spinal stenosis, lumbar region, without neurogenic claudication [facility] Diagnosis Radiculopathy, cervical region- Primary Brachial neuritis or radiculitis nos Spinal stenosis, lumbar region, without neurogenic claudication [facility] Diagnosis Radiculopathy, cervical region- Primary Brachial neuritis or radiculitis nos Spinal stenosis, lumbar region, without neurogenic claudication [facility] Diagnosis Right shoulder pain, unspecified chronicity- Primary [facility] Diagnosis Radiculopathy, cervical region- Primary Brachial neuritis or radiculitis nos Spinal stenosis, lumbar region, without neurogenic claudication [facility] Diagnosis Acute pain of right shoulder- Primary Nontraumatic complete tear of right rotator cuff [facility] Diagnosis Right shoulder pain, unspecified chronicity [facility] Diagnosis Tendinopathy of rotator cuff, right- Primary Cervicalgia Radiculopathy, cervical region Brachial neuritis or radiculitis nos Gluteal tendinitis, unspecified laterality Spinal stenosis of lumbar region without neurogenic claudication Spinal stenosis, lumbar region, without neurogenic claudication Bladder dysfunction Other functional disorder of bladder Spinal stenosis of cervical region Spinal stenosis in cervical region [facility] Diagnosis Tendinopathy of rotator cuff, right- Primary [facility] Diagnosis Spinal stenosis of lumbar region without neurogenic claudication Spinal stenosis, lumbar region, without neurogenic claudication Cervicalgia Radiculopathy, cervical region Brachial neuritis or radiculitis nos Bladder dysfunction Other functional disorder of bladder Spinal stenosis of cervical region Spinal stenosis in cervical region [facility] Diagnosis Tendinopathy of rotator cuff, right- Primary [facility] Diagnosis Tendinopathy of rotator cuff, right- Primary [facility] Diagnosis Cervicalgia- Primary Right shoulder pain, unspecified chronicity Radiculopathy, cervical region Brachial neuritis or radiculitis nos Nontraumatic tear of right rotator cuff, unspecified tear extent Spinal stenosis, lumbar region with neurogenic claudication [facility] Diagnosis Bursitis of right shoulder- Primary Disorders of bursae and tendons in shoulder region, unspecified [facility]* Diagnosis Right shoulder pain, unspecified chronicity [facility]* Diagnosis Paraesophageal hernia- Primary Diaphragmatic hernia without mention of obstruction or gangrene Gastroesophageal reflux disease without esophagitis Esophageal reflux Hyperlipidemia, unspecified hyperlipidemia type Esophageal dysphagia Dysphagia, pharyngoesophageal phase Swelling of lower extremity Type 2 diabetes mellitus with other specified complication, with long-term current use of insulin (HCC) Esophageal dysphagia Dysphagia, pharyngoesophageal phase [facility] Diagnosis Paraesophageal hernia- Primary Diaphragmatic hernia without mention of obstruction or gangrene Gastroesophageal reflux disease without esophagitis Esophageal reflux Hyperlipidemia, unspecified hyperlipidemia type Type 2 diabetes mellitus with other specified complication, with long-term current use of insulin (HCC) documented in this encounter [facility] for referral (narrative)* - Authorized Specialty Diagnoses / Procedures Referred By Contac t Referred To Contact Diagnoses Radiculopathy, cervical region Intervertebral 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 Procedures [place]SULT [place] [address] [place] [address] Referral ID Status Reason Start Date Expiration Date V isits Requested Visits Authorized [id number] Authorized 12/06/2021 03/06/2022 99 99 * Diagnostic Procedure Only (Routine) - Closed Specialty Diagnoses / Procedures Referred By Contac t Referred To Contact XR IMAGING Diagnoses Radiculopathy, cervical region Intervertebral 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 Procedures XR LUMBAR LIMITED 2V AP/LAT RADEX SPINE LUMBOSACRAL 2/[place] [address] [place] [id number] Xr Imaging Referral ID Status Reason Start Date Expiration Date V isits Requested Visits Authorized [id number] Closed Auto-Generate d Referral 12/06/2021 01/05/2023 1 1 [facility] for referral (narrative)* Diagnostic Procedure Only (Routine) - Pending Review Specialty Diagnoses / Procedures Referred By Contac t Referred To Contact XR IMAGING Diagnoses Right shoulder pain, unspecified chronicity Procedures XR SHOULDER GENERAL 3V OR MORE AP/TRUE AP/OTHER RIGHT RADEX SHOULDER COMPLETE MINIMUM 2 VIEWS Eleno eRyna MD [address] [place] [address] Xr Imaging Referral ID Status Reason Start Date Expiration Date Visits Requested Visits Authorized [id number] Pending Review Auto-Generat ed Referral 01/10/2022 02/09/2023 1 1 [facility] for referral (narrative)* Diagnostic Procedure Only (Routine) - Closed Specialty Diagnoses / Procedures Referred By Contac t Referred To Contact XR IMAGING Diagnoses Right shoulder pain, unspecified chronicity Procedures XR SHOULDER GENERAL 3V OR MORE AP/TRUE AP/OTHER RIGHT RADEX SHOULDER COMPLETE MINIMUM 2 VIEWS Eleno Reyna MD [address] [place] [address] Xr Imaging Referral ID Status Reason Start Date Expiration Date V isits Requested Visits Authorized [id number] Closed Auto-Generate d Referral 01/10/2022 02/09/2023 1 1 [facility] for referral (narrative)* Outpatient Procedure (Routine) - Pending Review Specialty Diagnoses / Procedures Referred By Contac t Referred To Contact [facility] Diagnoses Paraesophageal hernia Procedures ECG COMPLETE ECG ROUTINE ECG W/LEAST 12 LDS W/I&R Kasandra Wong MD 1 [employer] [address] [place] [id number] [facility] [address] [place] [id number] Referral ID Status Reason Start Date Expiration Date Visits Requested Visits Authorized [id number] Pending Review Auto-Generat ed Referral 03/14/2023 03/13/2024 1 1 * Outpatient Procedure (Routine) - Pending Review Specialty Diagnoses / Procedures Referred By Contac t Referred To Contact [facility] Diagnoses Esophageal dysphagia Procedures MANOMETRY ESOPHAGEAL ESOPHAGEAL MOTILITY STUDY W/INTERP&RPT Kasandra Wong MD [address] [place] [address] [facility] [address] [place] [address] Referral ID Status Reason Start Date Expiration Date Visits Requested Visits Authorized [id number] Pending Review Auto-Generat ed Referral 03/14/2023 03/14/2024 1 1 * Diagnostic Procedure Only (Routine) - Authorized Specialty Diagnoses / Procedures Referred By Arturoac t Referred To Contact XR IMAGING Diagnoses Esophageal dysphagia Procedures XR UPPER GI ROUTINE DOUBLE CONTRAST/AIR RADIOLOGIC EXAM UPR GI TRC DOUBLE CONTRAST STUDY Kasandra Wong [facility] [address] [place] [address] Xr Imaging Referral ID Status Reason Start Date Expiration Date Visits Requested Visits Authorized [id number] Authorized Auto-Generat ed Referral 03/14/2023 04/12/2024 1 1 [facility] Diagnostic Procedure Only (Routine) - Closed Specialty Diagnoses / Procedures Referred By Joce byrd Referred To Contact XR IMAGING Diagnoses Right shoulder pain, unspecified chronicity Procedures XR SHOULDER GENERAL 3V OR MORE AP/TRUE AP/OTHER RIGHT RADEX SHOULDER COMPLETE MINIMUM 2 VIEWS Eleno Reyna MD [address] [place] [address] Xr Imaging Referral ID Status Reason Start Date Expiration Date V isits Requested Visits Authorized [id number] Closed Auto-Generate d Referral 01/10/2022 02/09/2023 1 1 [facility] Summary Purpose Family History No Family History Records FoundNo Family History Records FoundNo Family History Records FoundNo Family History Records FoundNo Family History Records FoundNo Family History Records Found Advance Directives No Advanced Directives Records FoundDocuments on File Type Date Recorded 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 Advance Directive(s) 10/23/2014 2:18 PM Advance Directive(s) 08/12/2010 9:06 PM Documents on File Type Date Recorded 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 Advance Directive(s) 10/23/2014 2:18 PM Advance Directive(s) 08/12/2010 9:06 PM Reason for Referral Specialty Diagnoses / Procedures Referred By Joce byrd Referred To Contact MR IMAGING Diagnoses Cervicalgia Radiculopathy, cervical region Bladder dysfunction Spinal stenosis of cervical region Procedures MRI CERVICAL SPINE WO IVCON MRI SPINAL CANAL [place]ICAL [place] [address] [place] [id number] Mr Imaging Referral ID Status Reason Start Date Expiration Date Visits Requested Visits Authorized [id number] Authorized Auto-Generat ed Referral 01/31/2022 03/02/2023 1 1 Specialty Diagnoses / Procedures Referred By Contac t Referred To Contact MR IMAGING Diagnoses Spinal stenosis of lumbar region without neurogenic claudication Procedures MRI LUMBAR SPINE WO IVCON MRI SPINAL CANAL LUMBAR W/O CONTRAST MATERIAL Franck Hall, [address] [place] [phone] Mr Imaging Referral ID Status Reason Start Date Expiration Date Visits Requested Visits Authorized [id number] Authorized Auto-Generat ed Referral 01/31/2022 03/02/2023 1 1 Specialty Diagnoses / Procedures Referred By Contac t Referred To Contact Diagnoses Tendinopathy of rotator cuff, right Procedures CONSULT TO PHYSICAL THERAPY Franck Hall, [address] [place] [address] Referral ID Status Reason Start Date Expiration Date V isits Requested Visits Authorized [id number] Authorized 01/31/2022 05/01/2022 99 99 Referral ID Status Reason Start Date Expiration Date V isits Requested Visits Authorized [id number] Closed Auto-Generate d Referral 01/31/2022 03/02/2023 1 1 Referral ID Status Reason Start Date Expiration Date V isits Requested Visits Authorized [id number] Closed Auto-Generate d Referral 01/31/2022 03/02/2023 1 1 Specialty Diagnoses / Procedures Referred By Contac t Referred To Contact Sports Medicine Diagnoses Right shoulder pain, unspecified chronicity Procedures CONSULT TO SPORTS MEDICINE OFFICE/OUTPATIENT [facility] 60-[place] [address] [place] [phone] Referral ID Status Reason Start Date Expiration Date Visits Requested Visits Authorized [id number] Authorized PCP Requested Referral 05/05/2022 05/05/2023 1 1 Medications Administered Section Inactive Administered Medications - up to 3 most recent administrations Medication Order MAR Action Action Date Dose Rate Site lidocaine (PF) 10 mg/mL (1 %) 4 mL injection (XYLOCAINE) 4 mL, Injection - FOR ORTHO USE ONLY, ONE TIME INJECTION, 1 dose, Starting on Sun06/06/22 at 1220, Until Sun06/06/22 at 1220 Given 06/06/2022 12:20 PM EDT 4 mL Shoulder, Right triamcinolone acetonide 40 mg injection (KeNALog 40) 40 mg, Injection - FOR ORTHO USE ONLY, ONE TIME INJECTION, 1 dose, Starting on Sun06/06/22 at 1220, Until Sun06/06/22 at 1220 Given 06/06/2022 12:20 PM EDT 40 mg Shoulder, Right Additional Source Comments INFORMATION SOURCE (unrecogn ized section and content) DATE CREATED AUTHOR AUTHOR'S ORGANIZ ATION 02/09/2019 [facility] DATE CREATED AUTHOR AUTHOR'S ORGANIZ ATION 02/15/2019 [facility] ([place]) DATE CREATED AUTHOR AUTHOR'S ORGANIZ ATION 06/29/2022 [facility] DATE CREATED AUTHOR AUTHOR'S ORGANIZ ATION 06/12/2023 [facility] DATE CREATED AUTHOR AUTHOR'S ORGANIZ ATION 09/21/2023 [facility] Source Comments (unrecognize d section and content) In the event this informatio n is protected by the Federal Confidentiality of Alcohol and Drug Abuse Patient Records regulations: The Federal rules restrict any use of the information to criminally investigate or prosecute any alcohol or drug abuse patient.[facility] the event this information is protected by the Federal Confidentiality of Alcohol and Drug Abuse Patient Records regulations: The Federal rules restrict any use of the information to criminally investigate or prosecute any alcohol or drug abuse patient.[facility] the event this information is protected by the Federal Confidentiality of Alcohol and Drug Abuse Patient Records regulations: The Federal rules restrict any use of the information to criminally investigate or prosecute any alcohol or drug abuse patient.[facility] the event this information is protected by the Federal Confidentiality of Alcohol and Drug Abuse Patient Records regulations: The Federal rules restrict any use of the information to criminally investigate or prosecute any alcohol or drug abuse patient.[facility] the event this information is protected by the Federal Confidentiality of Alcohol and Drug Abuse Patient Records regulations: The Federal rules restrict any use of the information to criminally investigate or prosecute any alcohol or drug abuse patient.[facility] the event this information is protected by the Federal Confidentiality of Alcohol and Drug Abuse Patient Records regulations: The Federal rules restrict any use of the information to criminally investigate or prosecute any alcohol or drug abuse patient.[facility] the event this information is protected by the Federal Confidentiality of Alcohol and Drug Abuse Patient Records regulations: The Federal rules restrict any use of the information to criminally investigate or prosecute any alcohol or drug abuse patient.[facility] the event this information is protected by the Federal Confidentiality of Alcohol and Drug Abuse Patient Records regulations: The Federal rules restrict any use of the information to criminally investigate or prosecute any alcohol or drug abuse patient.[facility] the event this information is protected by the Federal Confidentiality of Alcohol and Drug Abuse Patient Records regulations: The Federal rules restrict any use of the information to criminally investigate or prosecute any alcohol or drug abuse patient.[facility] the event this information is protected by the Federal Confidentiality of Alcohol and Drug Abuse Patient Records regulations: The Federal rules restrict any use of the information to criminally investigate or prosecute any alcohol or drug abuse patient.[facility] the event this information is protected by the Federal Confidentiality of Alcohol and Drug Abuse Patient Records regulations: The Federal rules restrict any use of the information to criminally investigate or prosecute any alcohol or drug abuse patient.[facility] the event this information is protected by the Federal Confidentiality of Alcohol and Drug Abuse Patient Records regulations: The Federal rules restrict any use of the information to criminally investigate or prosecute any alcohol or drug abuse patient.[facility] the event this information is protected by the Federal Confidentiality of Alcohol and Drug Abuse Patient Records regulations: The Federal rules restrict any use of the information to criminally investigate or prosecute any alcohol or drug abuse patient.[facility] the event this information is protected by the Federal Confidentiality of Alcohol and Drug Abuse Patient Records regulations: The Federal rules restrict any use of the information to criminally investigate or prosecute any alcohol or drug abuse patient.[facility] the event this information is protected by the Federal Confidentiality of Alcohol and Drug Abuse Patient Records regulations: The Federal rules restrict any use of the information to criminally investigate or prosecute any alcohol or drug abuse patient.[facility] the event this information is protected by the Federal Confidentiality of Alcohol and Drug Abuse Patient Records regulations: The Federal rules restrict any use of the information to criminally investigate or prosecute any alcohol or drug abuse patient.[facility] the event this information is protected by the Federal Confidentiality of Alcohol and Drug Abuse Patient Records regulations: The Federal rules restrict any use of the information to criminally investigate or prosecute any alcohol or drug abuse patient.[facility] the event this information is protected by the Federal Confidentiality of Alcohol and Drug Abuse Patient Records regulations: The Federal rules restrict any use of the information to criminally investigate or prosecute any alcohol or drug abuse patient.[facility] the event this information is protected by the Federal Confidentiality of Alcohol and Drug Abuse Patient Records regulations: The Federal rules restrict any use of the information to criminally investigate or prosecute any alcohol or drug abuse patient.[facility] the event this information is protected by the Federal Confidentiality of Alcohol and Drug Abuse Patient Records regulations: The Federal rules restrict any use of the information to criminally investigate or prosecute any alcohol or drug abuse patient.[facility] the event this information is protected by the Federal Confidentiality of Alcohol and Drug Abuse Patient Records regulations: The Federal rules restrict any use of the information to criminally investigate or prosecute any alcohol or drug abuse patient.[facility] the event this information is protected by the Federal Confidentiality of Alcohol and Drug Abuse Patient Records regulations: The Federal rules restrict any use of the information to criminally investigate or prosecute any alcohol or drug abuse patient.[facility] the event this information is protected by the Federal Confidentiality of Alcohol and Drug Abuse Patient Records regulations: The Federal rules restrict any use of the information to criminally investigate or prosecute any alcohol or drug abuse patient.[facility] Reason for Visit (unrecogniz ed section and content) Specialty Diagnoses / Procedures Referred By Joce byrd Referred To Contact Diagnoses Tendinopathy of rotator cuff, right Procedures CONSULT [place] [address] [place] [address] Referral ID Status Reason Start Date Expiration Date V isits Requested Visits Authorized [id number] Authorized 01/31/2022 05/01/2022 99 99 Reason Comments Physical Therapy Reason Comments PT Eval Specialty Diagnoses / Procedures Referred By Joce byrd Referred To Contact Diagnoses Radiculopathy, cervical region Intervertebral 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 Procedures CONSULT [place] [address] [place] [address] Referral ID Status Reason Start Date Expiration Date V isits Requested Visits Authorized [id number] Authorized 12/06/2021 03/06/2022 99 99 Reason Comments New Patient Reason Comments Referred by Chucho Yuan New Reason Comments Follow Up Specialty Diagnoses / Procedures Referred By Contac t Referred To Contact MR IMAGING Diagnoses Cervicalgia Radiculopathy, cervical region Bladder dysfunction Spinal stenosis of cervical region Procedures MRI CERVICAL SPINE WO IVCON MRI SPINAL CANAL CERVICAL W/[place] [address] [place] [address] Mr Imaging Referral ID Status Reason Start Date Expiration Date V isits Requested Visits Authorized [id number] Closed Auto-Generate d Referral 01/31/2022 03/02/2023 1 1 Reason Comments Follow Up Reason Comments Established Patient Reason Comments New Specialty Diagnoses / Procedures Referred By Joce t Referred To Contact Sports Medicine Diagnoses Right shoulder pain, unspecified chronicity Procedures CONSULT TO SPORTS MEDICINE OFFICE/OUTPATIENT NEW HIGH MDM 60-[place] [address] [place] [address] Referral ID Status Reason Start Date Expiration Date V isits Requested Visits Authorized [id number] Closed PCP Requested Referral 05/05/2022 05/05/2023 1 1 Reason Comments New Patient Evaluation Reason Comments Appointment Manometry Reason Comments Future Appointment Care Teams (unrecognized sec tion and content) Carbon Brushes Assembler Relationship Specialty Start Date End Date Kumar Mcguire MD [address] [place], [place] [id number] 904- PCP - General Internal Medicine 03/14/23 Carbon Brushes Assembler Relationship Specialty Start Date End Date Kumar Mcguire MD [address] [place], [place] [id number] 734- PCP - General Internal Medicine 03/14/23 Carbon Brushes Assembler Relationship Specialty Start Date End Date Kumar Mcguire MD [address] [place], [place] [id number] 811- PCP - General Internal Medicine 03/14/23 FOR RECORDS PERTAINING TO PATIENTS WHO ARE OR HAVE BEEN ENROLLED IN A CHEMICAL DEPENDENCY/SUBSTANCEABUSE PROGRAM, SOME INFORMATION MAY BE OMITTED. This clinical summary was aggregated from multiple sources. Caution should be exercised in using it in the provision of clinical care. This summary normalizes information from multiple sources, and as a consequence, information in this document may materially change the coding, format and clinical context of patient data. In addition, data may be omitted in some cases. CLINICAL DECISIONS SHOULD BE BASED ON THE PRIMARY CLINICAL RECORDS. [employer] [facility]. provides no warranty or guarantee of the accuracy or completeness of information in this document.
== END | disposition home or self-care (01) ==
LOC: OPBD 10:21
PROVIDERS: PCP Internal Medicine; Referring Provider Internal Medicine; Visit Provider Internal Medicine
DX: M81.0 Age-related osteoporosis without current pathological fracture (principal)
CPT/HCPCS: 77080

== ENCOUNTER 2023-12-27 14:00 | Outpatient (RCR) | payer MEDICARE, OTHER, SELFPAY ==
--- NOTE | 2023-12-21 07:13 | HP.OTEVAL_ITS ---
Patient's Visit Information Visit Information Visit Information: AMIRA MERAZ is a 78 year old F, referred to Occupational Therapy by Dr. Jerry Rios DO, with a diagnosis of Ulnar nerve/ CTS. Date of Evaluation: 12/19/23 Occupational Therapist: DYAN Israel/Donald, CHT Subjective Subjective: This 78 year old female was seen for OT eval with dx of left CTS and ulnar nerve entrapment. Pt states she noticed a few weeks ago she could not op pose her left thumb and increase weakness. Pt states in past she had some type of sx done on her right hand but not sure what she had done. Pt states she would like to get more function and strength back- pt does admit tingling in hands when reading a book or talking on the phone. pt states she is wearing a left wrist brace at night. States she has not noticed tingling that wakes her up during the night. pt states she needs to get the ability to pinch with her left hand to picking tech small items as well as to use left hand with ADLs. 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: right 18# left 10# Lateral Pinch: right 4# left 2# ( poor thumb tip position use of ulnar side of IPJ ) Tripod Pinch: unable Sensation Thumb: right 3.81 diminished protective sensation left 2.83 Normal Index: right 2.83 left 2.83 normal sensation Middle: right 2.83 left 2.83 normal sensation Ring: right 2.83 left 2.83 normal sensation Little: right 2.83 left 2.83 normal sensation Quick DASH-Disab of Arm,Shoulder& Hand Quick DASH Score: 38.6350 Goals Goal:: PT will demo an 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 Pt will demo an increase in lateral and tripod pinch by 4# to increase pts independent with opening baggies, containers at PLOF by D/C. Goal:: pt will demo increase opposition of left thumb with use of bracing/k-tape to increase stability and motion to use left hand with ADLs by d.c Goal:: pt will demo the ability to use left hand to picking tech and hold coins without dropping to increase pts ind. with money manipulation by [email or web address] Goal:: Pt will demo understanding of joint protection and ergonomics when performing BADLs and IADLs by d/c Pt will demo understanding of adaptive Equipment use to decrease stress on joints to allow pt to perform BADSL and IADLS at ADIA level. Goal:: Pt will demo understanding of using supportive bracing 80% of workday/ADLS to decrease stress on tendon origin to allow healing and decrease pain by end of 2nd session. Pt will demo understanding of orthosis use and precautions by end of 1st session. Pt will return to clinic for orthosis adjustment. Rehabilitation General Assessment: pt demo with positive symptoms of ulnar and median nerve entrapment with positive Froment's sign as note she has severe wasting of the first and fourth interosseous spaces, and limited opposition. pts weakness has limited her IND with ADLs and IADLS. Pt would benefit from skilled OT services 1-2x week for 8 weeks to decrease median and ulnar nerve compression, bracing/orthosis and strengthening to return pt to her PLOF. Rehabilitation Potential: Good Anticipated Interventions Anticipated Interventions: A/AAROM/PROM, Strengthening, Triggerpoint Release, Modalities, Orthoses, Joint Protection/Energy Conservation, Ergonomic Education, Fine Motor Coord/Cruz, ADL Training, Education re assistive Equipment, Education re Diagnosis and Home Program Visit Plan Frequency: 1-2x /Week Duration: 2 Months General Plan: nerve glides bracing strength as able working with thumb opposition TEXT: Thank you for the opportunity to evaluate your patient. For Medicare and Medicare HMO plans, please review the plan of care and approve it. It will need to be FAXED BACK to us at [phone] for Medicare purposes. Please let me know if there are questions or concerns regarding this plan of care. Physician Signature: Date:
== END 2023-12-27 16:29 | disposition home or self-care (01) ==
LOC: OT 14:00
PROVIDERS: PCP Internal Medicine; Referring Provider Orthopaedic Surgery; Visit Provider Orthopaedic Surgery
DX: G56.02 Carpal tunnel syndrome, left upper limb (principal); G56.20 Lesion of ulnar nerve, unspecified upper limb
CPT/HCPCS: 97166; 97167; 97530

== ENCOUNTER → 2024-01-10 | Outpatient (CLI) | payer MEDICARE, OTHER, SELFPAY ==
[2024-01-10 16:12] LABS: Absolute Lymphocyte Count 1.75 X10^3/uL (0.83-4.51); Absolute Neutrophil Count 5.5 X10^3/uL (2.0-7.7); Basophil# 0.06 X10^3/uL; Basophil% 0.7 % (0-1); Eosinophil# 0.21 X10^3/uL; Eosinophils% 2.6 % (0-5); Hematocrit 40.1 % (37-47); Hemoglobin 12.6 g/dL (12.0-15.0); Lymphocyte # 1.75 X10^3/ul (0.83-4.51); Lymphocyte % 21.4 % (19-41); Mean Corp Hgb Conc 31.4 g/dL (32-36); Mean Corpuscular Hgb 28.5 pg (27.0-32.0); Mean Corpuscular Volume 90.7 fL (81-99); Monocyte# 0.59 X10^3/uL; Monocyte% 7.2 % (0-10); NRBC Flagged by Analyzer 0 % (0-5); Neutrophil # 5.54 X10^3/uL (2.7-7.7); Neutrophil % 67.9 % (47-70); Platelet Count 194 K/mm3 (150-450); RBC Distribution Width CV 14.4 % (11.6-14.6); RBC Distribution Width SD 48.3 fl (35.1-43.9); Red Blood Count 4.42 M/mm3 (4.2-5.4); White Blood Count 8.2 K/mm3 (4.4-11.0)
[2024-01-10 17:03] LABS: ALB/GLOB Ratio 1.1 RATIO (0.9-2.4); AST(SGOT) 22 U/L (15-37); Alanine Aminotransfer ALT/SGPT 16 U/L (13-56); Albumin, Serum 3.4 g/dL (3.2-5.0); Alkaline Phosphatase 72 U/L (45-117); Anion Gap 4 (5-15); BUN 35 mg/dL (7-18); BUN/Creat Ratio 34.3 RATIO (10-20); Calcium,Total 9.6 mg/dL (8.5-10.1); Chloride 109 mmol/L (98-107); Creatinine, Serum 1.02 mg/dL (0.55-1.02); EST Glomerular Filtration Rate 55 mL/min (>60); Est Glom Filt Rate - Afr Amer 67 mL/min (>60); Globulin 3.2 g/dL (2.2-4.2); Glucose 159 mg/dL (74-106); Potassium 3.9 mmol/L (3.5-5.1); Protein, Total 6.6 g/dL (6.4-8.2); Sodium Level 141 mmol/L (136-145)
== END | disposition home or self-care (01) ==
LOC: BIMLAB 14:24
PROVIDERS: PCP Internal Medicine; Visit Provider Internal Medicine
DX: E10.29 Type 1 diabetes mellitus with other diabetic kidney complication (principal); I10 Essential (primary) hypertension; R80.9 Proteinuria, unspecified
CPT/HCPCS: 36415; 80053; 85025

== ENCOUNTER → 2024-01-11 | Outpatient (CLI) | payer MEDICARE, OTHER, SELFPAY ==
[2024-01-11 15:59] LABS: Microalbumin,Random Urine 13.4 mg/L (NO RANGE EST.); Microalbumin:Creatinine Ratio 16.6 mg/g CRE (<30 mg/g CRE)
== END | disposition home or self-care (01) ==
LOC: LABSPEC 14:08
PROVIDERS: PCP Internal Medicine; Visit Provider Internal Medicine
DX: I10 Essential (primary) hypertension (principal)
CPT/HCPCS: 82043; 82570

== ENCOUNTER 2024-06-19 10:30 | Outpatient (RCR) | payer MEDICARE, OTHER, SELFPAY ==
--- NOTE | 2024-03-27 13:55 | HP.PTEVAL ---
Patient's Visit Information Visit Information Visit Information: AMIRA MERAZ is a 79 year old F referred to Physical Therapy by Dr. Kayla Traylor DPM with a diagnosis of Gait Abnormality. Date of Evaluation: 03/27/24 Physical Therapist: Jolene Miranda DPT Visit Plan Frequency: 2x /Week Duration: 4 Weeks Plan: Focus on proprioception and balance with movement- Ex: obstacle course, ambulation with title tank HEP Given IE: SLS, Tandem Stance, sit to stand Subjective Subjective: Patient reports that she wants to be able to walk- she lost her gant retriever about a month ago- she walked everyday- they walked between 1/2 mile- paved-both flat and small hills- everyday and since she has been gone she has not been able to walk as far. 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 She feels its more balance issue than it is endurance. She has a bad back which is more muscle spasms in her low back- they come and go- its the worst if she is at a craft show and she will use a walker- because she can do anywhere with a grocery cart. She had a fall before - braided rug in the laundry room- does not own the rug anymore. Fully I with all ADL's- she has a garden and is able to take care of it. She does have cramping in her feet- she wears orthotics in her shoes- she has had them a long time. Neuropathy comes up the ankles. She has been using a cane when she walks with the group. She feels that she is a furniture surfer for balance. She does not do any balance exercises. She does not have any dizziness. She does not have any vision issues. PMHx/Meds: see visit from PCP in January Objective Objective: Posture: forward head, rounded shoulders, can correct but does not maintain in sitting- standing forward posture with slight lean to the right HR/TR: able with UE A SLS: 3-4 seconds bilateral with SBA for safety Balance: see below Transfers: requires single UE to sit to stand ROM: WFL in all planes of the LE Strength: core: fair minus, Hip: 4-/5 throughout, Knee: 4+/5, Ankle: 5/5 Sensation: WNL to gross touch bilateral Balance/Special Test Scores Functional Gait Assessment Score: 12 % Disability: 60.0000 Lower Extremity Functional Score: 35 TUG Test Time Seconds: 28 Goals Goal 1:: Patient will be I with HEP and progression Goal Time Frame: 4-6 Weeks Goal 2:: Patient will sit to stand without UE A Goal Time Frame: 4-6 Weeks Goal 3:: Patient will improve her FGA by 5 points Goal Time Frame: 4-6 Weeks Goal 4:: Patient will improve TUG to under 10 seconds Goal Time Frame: 4-6 Weeks Goal 5:: Patient will report 80% improvement Goal Time Frame: 4-6 Weeks Rehabilitation Potential Physical Therapy Diagnosis: Patient presents with decreased LE and core strength/stabilization, proprioception, flex and muscular endurance leading to abnormal gait and poor balance Rehabilitation Potential: Good Anticipated Interventions Patient/Client Instruction: Educate patient on: Benefits of Fitness Program Therapeutic Exercise to Include: Strength training, Endurance training, Balance training, Coordination, Agility training, Body mechanics, Postural training, Flexibilty training, Gait and locomotor training, Neuromotor development, Dynamic Lumbar Stabilization and Scapular Strength/Stabilization Functional Training to Include: Gait training Text: Thank you for the opportunity to evaluate your patient. For Medicare and Medicare HMO plans, please review the plan of care and approve it. It will need to be FAXED BACK to us at [phone] for Medicare purposes. For Medicare only, by signing this I certify the plan of care. Please let me know if there are questions or concerns regarding this plan of care. Physician Signature: Date:
--- NOTE | 2024-04-24 11:08 | HP.PTREVAL_ITS ---
Re-Evaluation Intro: Dr. Kayla Traylor, DPM, It has been my pleasure to treat AMIRA MERAZ over the last 9 visits for Gait Abnormality. Please see the progress note below for an update on the physical therapy plan of care! Subjective Subjective: I am getting better, but I feel like I need more help with my balance Objective Objective/Function: Pt is I with HEP Pt is able to sit to stand without UE assistance TU.38 FGA -still a mild risk of falling Plan Plan Plan: 04/24/24- Continue 2x's per week for 4 more weeks to progress LE str engthening and dynamic balance activity Balance/Gait/Functional tests Balance/Special Test Scores Functional Gait Assessment Score: 16 % Disability: 46.6700 Lower Extremity Functional Score: 40 TUG Test Time Seconds: 10.94 Tug Test: <20 sec.=mostly independent 30 Second Chair Rise Test Seconds: 11 Goals Goals Goal 1:: Patient will be I with HEP and progression Goal Time Frame: 4-6 Weeks Goal Progress: Goal Met Goal 2:: Patient will sit to stand without UE A Goal Time Frame: 4-6 Weeks Goal Progress: Goal Met Goal 3:: Patient will improve her FGA by 5 points Goal Time Frame: 4-6 Weeks Goal Progress: Progressing Goal 4:: Patient will improve TUG to under 10 seconds Goal Time Frame: 4-6 Weeks Goal Progress: Progressing Goal 5:: Patient will report 80% improvement Goal Time Frame: 4-6 Weeks Goal Progress: Progressing Anticipated Interventions Anticipated Interventions Patient/Client Instruction: Educate patient on: Benefits of Fitness Program Therapeutic Exercise to Include: Strength training, Endurance training, Balance training, Coordination, Agility training, Body mechanics, Postural training, Flexibilty training, Gait and locomotor training, Neuromotor development, Dynamic Lumbar Stabilization and Scapular Strength/Stabilization Functional Training to Include: Gait training Re-Evaluation Ending Re-evaluation ending: Please do not hesitate to contact me at [phone] by phone or Fax: if you have questions or concerns regarding this new plan of care! Sincerely, Javon Rhodes, PT, ATC
--- NOTE | 2024-05-22 10:58 | HP.PTREVAL ---
Re-Evaluation Intro: Dr. Kayla Traylor, DPM, It has been my pleasure to treat AMIRA MERAZ over the last 17 visits for Gait Abnormality. Please see the progress note below for an update on the physical therapy plan of care! Subjective Subjective: I have gotten stronger, but my balance is still bad Objective Objective/Function: Pt reports feeling 75% improvement at this time TU.67 sec FGA: Pt has made significant gains at this time Plan Plan Plan: 05/22/24- Continue 2 times per week for 4 more weeks to focus on dynamic balance activity Balance/Gait/Functional tests Balance/Special Test Scores Functional Gait Assessment Score: 19 % Disability: 36.6700 Lower Extremity Functional Score: 44 TUG Test Time Seconds: 9.84 Tug Test: <10 sec.=free mobile 30 Second Chair Rise Test Seconds: 14 Goals Goals Goal 1:: Patient will be I with HEP and progression Goal Time Frame: 4-6 Weeks Goal Progress: Goal Met Goal 2:: Patient will sit to stand without UE A Goal Time Frame: 4-6 Weeks Goal Progress: Goal Met Goal 3:: Patient will improve her FGA by 5 points Goal Time Frame: 4-6 Weeks Goal Progress: Progressing Goal 4:: Patient will improve TUG to under 10 seconds Goal Time Frame: 4-6 Weeks Goal Progress: Progressing Goal 5:: Patient will report 80% improvement Goal Time Frame: 4-6 Weeks Goal Progress: Progressing Anticipated Interventions Anticipated Interventions Patient/Client Instruction: Educate patient on: Benefits of Fitness Program Therapeutic Exercise to Include: Strength training, Endurance training, Balance training, Coordination, Agility training, Body mechanics, Postural training, Flexibilty training, Gait and locomotor training, Neuromotor development, Dynamic Lumbar Stabilization and Scapular Strength/Stabilization Functional Training to Include: Gait training Re-Evaluation Ending Re-evaluation ending: Please do not hesitate to contact me at [phone] by phone or if you have questions or concerns regarding this new plan of care! Sincerely, Javon Rhodes, PT, ATC
--- NOTE | 2024-06-19 11:05 | HP.PTDCSUM ---
Discharge Summary D/C summary: It has been my pleasure to treat AMIRA MERAZ referred by Dr. Kayla Traylor DPM, with the diagnosis of Gait Abnormality for a total of 25 visit(s). Discharge Date: Please see the following information for a summary of their discharge status. Subjective Subjective: I think I am ready for discharge. I only feel off balance when I am walking and turn my head Pain Bilateral Back: Pain Intensity (Out of 10): 2 R shoulder: Pain Intensity (Out of 10): 2 Overall Improvement % Improvement: 90 Objective Objective/Function: Pt is I with HEP TUG 8.9 sec Pt can perform sit to stand transfers with no UE FGA: Goals Goal 1:: Patient will be I with HEP and progression Goal Progress: Goal Met Goal 2:: Patient will sit to stand without UE A Goal Progress: Goal Met Goal 3:: Patient will improve her FGA by 5 points Goal Progress: Goal Met Goal 4:: Patient will improve TUG to under 10 seconds Goal Progress: Goal Met Goal 5:: Patient will report 80% improvement Goal Progress: Goal Met Plan Plan: Discharge to HEP D/C Information d/c sentence: If there are questions or concerns regarding this patient's physical therapy, please feel free to call me at [phone]. Thank you for the referral of this patient. Sincerely, Javon Rhodes, PT, ATC Balance/Gait/Functional tests Balance/Special Test Scores Functional Gait Assessment Score: 25 % Disability: 16.6700 Lower Extremity Functional Score: 48 TUG Test Time Seconds: 8.89 Tug Test: <10 sec.=free mobile 30 Second Chair Rise Test Seconds: 10 Improvement % Improvement: 90
== END 2024-06-19 19:00 | disposition home or self-care (01) ==
LOC: PT 10:30
PROVIDERS: PCP Internal Medicine; Visit Provider Podiatrist
DX: R26.89 Other abnormalities of gait and mobility (principal)
CPT/HCPCS: 97110; 97162; 97530

== ENCOUNTER → 2024-07-14 | Outpatient (CLI) | payer MEDICARE, OTHER, SELFPAY ==
[2024-07-14 12:44] LABS: Anion Gap 6 (5-15); BUN 31 mg/dL (7-18); BUN/Creat Ratio 32.6 RATIO (10-20); Calcium,Total 9.5 mg/dL (8.5-10.1); Chloride 109 mmol/L (98-107); Cholesterol 130 mg/dL (200); Creatinine, Serum 0.95 mg/dL (0.55-1.02); EST Glomerular Filtration Rate 60 mL/min (>60); Est Glom Filt Rate - Afr Amer 73 mL/min (>60); Glucose 196 mg/dL (74-106); High Density Lipoprotein 79 mg/dL; Potassium 4.3 mmol/L (3.5-5.1); Sodium Level 142 mmol/L (136-145); Triglycerides 55 mg/dL; Very Low Density Lipoprotein 11 mg/dL (5-40)
== END | disposition home or self-care (01) ==
LOC: MFPLAB 11:26 → BIMLAB 11:32
PROVIDERS: PCP Internal Medicine; Referring Provider Internal Medicine; Visit Provider Internal Medicine
DX: I10 Essential (primary) hypertension (principal); E10.69 Type 1 diabetes mellitus with other specified complication; E78.5 Hyperlipidemia, unspecified
CPT/HCPCS: 36415; 80048; 80061

== ENCOUNTER → 2024-08-29 | Outpatient (CLI) | payer MEDICARE, OTHER, SELFPAY ==
--- NOTE | 2024-08-29 09:24 | BI_ITS ---
MAMMOGRAPHY - BILATERAL SCREENING 3-D TOMOSYNTHESIS REASON FOR EXAM: Female, 79 years old. Breast Cancer Screening PERTINENT HISTORY: No significant family history. TECHNIQUE: 2-D mammograms and 3-D Tomosynthesis of the breast (s) were performed. CAD was performed. COMPARISON: 08/28/2023 FINDINGS: The breast composition is composed of scattered fibroglandular density. Scattered benign calcifications are seen. No dense spiculated masses or suspicious microcalcifications are identified. No architectural distortion is identified. There is no skin thickening or retraction. There has been no significant change since the prior study. BI/SCRN MAMM (CAD)W/MEME BILAT IMPRESSION: No mammographic signs of malignancy. Routine yearly mammograms recommended. ASSESSMENT CATEGORY: BIRADS Category 1: Negative. A letter regarding these results will be sent to the patient by the facility within 30 days. FOLLOW UP RECOMMENDATION: Yearly follow up mammogram recommended. (A) Approximately 10% of breast cancers are not detected by mammography. A normal mammogram should not delay biopsy of a clinically suspicious abnormality. Electronically Signed: Zuhair Cardenas MD at 19:44 EST ,
== END | disposition home or self-care (01) ==
LOC: OPBI 09:01
PROVIDERS: PCP Internal Medicine; Referring Provider Internal Medicine; Visit Provider Internal Medicine
DX: Z12.31 Encounter for screening mammogram for malignant neoplasm of breast (principal)
CPT/HCPCS: 77063; 77067

== ENCOUNTER → 2025-01-12 | Outpatient (CLI) | payer MEDICARE, OTHER, SELFPAY ==
[2025-01-12 12:35] LABS: Absolute Lymphocyte Count 1.62 X10^3/uL (0.83-4.51); Absolute Neutrophil Count 3.2 X10^3/uL (2.0-7.7); Basophil# 0.06 X10^3/uL; Basophil% 1.1 % (0-1); Eosinophil# 0.25 X10^3/uL; Eosinophils% 4.5 % (0-5); Hematocrit 42.1 % (37-47); Hemoglobin 13.4 g/dL (12.0-15.0); Lymphocyte # 1.62 X10^3/ul (0.83-4.51); Mean Corp Hgb Conc 31.8 g/dL (32-36); Mean Corpuscular Hgb 28.8 pg (27.0-32.0); Mean Corpuscular Volume 90.5 fL (81-99); Mean Platelet Vol. 11.9 fl (6.2-12.0); Monocyte# 0.49 X10^3/uL; Monocyte% 8.8 % (0-10); NRBC Flagged by Analyzer 0 % (0-5); Neutrophil # 3.15 X10^3/uL (2.7-7.7); Neutrophil % 56.4 % (47-70); Platelet Count 151 K/mm3 (150-450); RBC Distribution Width CV 14.9 % (11.6-14.6); RBC Distribution Width SD 49.6 fl (35.1-43.9); Red Blood Count 4.65 M/mm3 (4.2-5.4); White Blood Count 5.6 K/mm3 (4.4-11.0)
[2025-01-12 13:06] LABS: ALB/GLOB Ratio 1.5 RATIO (0.9-2.4); AST(SGOT) 28 U/L (<=31); Alanine Aminotransfer ALT/SGPT 15 U/L (<=34); Albumin, Serum 4.1 g/dL (3.4-4.8); Alkaline Phosphatase 68 U/L (35-104); Anion Gap 11 (5-15); BUN 29 mg/dL (4-19); BUN/Creat Ratio 30.7 RATIO (10-20); Calcium,Total 9.8 mg/dL (7.6-11.0); Carbon Dioxide 24.6 mmol/L (21.0-32.0); Chloride 110 mmol/L (98-108); Creatinine, Serum 0.96 mg/dL (0.70-1.20); EST Glomerular Filtration Rate 60 (>60); Globulin 2.7 g/dL (2.2-4.2); Glucose 61 mg/dL (70-99); Potassium 4.2 mmol/L (3.3-5.1); Protein, Total 6.8 g/dL (5.9-8.4); Sodium Level 146 mmol/L (133-145)
[2025-01-12 13:13] LABS: Vitamin D,25 Hydroxy 36.6 ng/mL (30-100)
== END | disposition home or self-care (01) ==
LOC: BIMLAB 10:41
PROVIDERS: PCP Internal Medicine; Referring Provider Internal Medicine; Visit Provider Internal Medicine
DX: I10 Essential (primary) hypertension (principal); M85.80 Other specified disorders of bone density and structure, unspecified site
CPT/HCPCS: 36415; 80053; 82306; 85025

== ENCOUNTER → 2025-03-15 | Outpatient (CLI) | payer MEDICARE, OTHER, SELFPAY | END | disposition home or self-care (01) | LOC: LABSPEC 03-16 07:47 | PROVIDERS: PCP Internal Medicine; Visit Provider Physician Assistant Medical | DX: R82.90 Unspecified abnormal findings in urine (principal) | CPT/HCPCS: 87077; 87086; 87088; 87186 ==

== ENCOUNTER → 2025-05-02 | Outpatient (CLI) | payer MEDICARE, OTHER, SELFPAY ==
--- NOTE | 2025-05-02 11:09 | US_ITS ---
PROCEDURE: KIDNEY AND BLADDER 05/02/2025 REASON FOR EXAM: URINARY TRACT INFECTIONS TECHNIQUE: Procedure Code: USKI Modality: US Procedure: KIDNEY AND BLADDER COMPARISON: None. FINDINGS: RIGHT Kidney Size: 9.6 x 4.7 x 4.4 cm Volume: 105 mL Cortical Thickness (if discernible): 1.2 cm (>6mm is normal) LEFT Kidney Size: 10.4 x 4.3 x 3.6 cm Volume: 83 mL Cortical Thickness (if discernible): 1.1 cm (>6mm is normal) There is a probable peripelvic cyst in the left kidney. The bladder is evacuated. Reading Location: [id number]
--- OUTSIDE RECORDS SUMMARY | 2025-05-02 11:17 | XMS RPT_ITS | CCD ---
Author Organization [facility] Care Team Providers Care Side Hemmer Name Role Phone Benoit Jenny CARLOS Unavailable [phone] [place], Miguel William Unavailable Unavailable *SELF, REFERRED Unavailable Unavailable Amy, Madison Catarina Unavailable Unavaila ble [place], Miguel William Unavailable Unavailable [place], Miguel William Unavailable Unavailable *SELF, REFERRED Unavailable Unavailable Amy, Madison Catarina Unavailable Unavaila ble Unavailable Primary Care Provider Unavailabl e Unavailable Primary Care Provider Unavailabl e Dr. Good Mcguire Primary Care Provider Dr. Good Mcguire Attending Provider [phone] Dr. Good Mcguire Referring Provider [phone] SABINO Robles Attending Provider FRANCK HALL Referring Unavailable GOLIAS, CHUCHO Attending Unavailable ISABELFRANCK Attending Unavailable GEOFFREY DENISE Attending Unavailable FRANCK HALL Referring Unavailable GEOFFREY DENISE Referring Unavailable GEOFFREY DENISE Attending Unavailable JAVON TURCIOS Attending Unavailable FRANCK HALL Referring Unavailable ISABELFRANCK Referring Unavailable ISABELFRANCK Attending Unavailable ELENO REYNA Attending Unavailable ISABEL, FRANCK M Referring Unavailable FRANCISCO REYNALEY Referring Unavailable ISABELFRANCK Attending Unavailable JAVON TURCIOS Attending Unavailable ISABELFRANCK Referring Unavailable JAVON TURCIOS Attending Unavailable ISABEL, FRANCK M Referring Unavailable GOLIAS, CHUCHO Attending Unavailable ISABEL, FRANCK M Referring Unavailable GOLIAS, CHUCHO Attending Unavailable ISABEL, FRANCK M Referring Unavailable ISABEL, FRANCK M Referring Unavailable GOLIAS, CHUCHO Attending Unavailable AXEL, ELENO Referring Unavailable GOLIAS, CHUCHO Attending Unavailable ISABEL, FRANCK M Referring Unavailable GOLIAS, CHUCHO Attending Unavailable ISABEL, FRANCK M Referring Unavailable GOLIAS, CHUCHO Attending Unavailable ISABEL, FRANCK M Referring Unavailable ISABEL, FRANCK M Referring Unavailable ISABEL, FRANCK M Referring Unavailable Dr. Good Mcguire Primary Care Provider [phone] Dr. Good Mcguire Referring Provider [phone] SABINO Robles Attending Provider Dr. Good Mcguire Attending Provider [phone] Dr. Deangelo Cantu Attending Provider Dr. Good Mcguire Primary Care Provider [phone]) Dr. Good Mcguire Referring Provider [phone] SABINO Robles Attending Provider Dr. Good Mcguire Attending Provider [phone] Dr. Deangelo Cantu Referring Provider Dr. Deangelo Cantu Other Provider Good Mcguire MD Primary Care Provider [phone] Dr. Good Mcguire Primary Care Provider [phone]) Dr. Good Mcguire Referring Provider [phone] SABINO Robles Attending Provider Dr. Good Mcguire Attending Provider [phone] Dr. Dillon Solis Attending Provider PROVIDER, UNKNOWN Referring Unavailable GOOD MCGUIRE Primary Care Unavailable Dr. Good Mcguire Primary Care Provider [phone]) Dr. Good Mcguire Attending Provider [phone] Dr. Good Mcguire Referring Provider [phone])2 Dr. Yuval Hubbard Attending Provider SABINO Robles Attending Provider Dr. Good Mcguire Primary Care Provider [phone] 0) Dr. Good Mcguire Referring Provider [phone] SABINO Robles Attending Provider Dr. Dillon Solis Attending Provider Dr. Good Mcguire Attending Provider [phone] Dr. Liset Mao Referring Provider MARVIN, KASANDRA Referring Unavailable OLEGHE, EFEWONGBE B Primary Care Unavailable MARVIN, KASANDRA Attending Unavailable OLEGHE, EFEWONGBE B Primary Care Unavailable OLEGHE, EFEWONGBE B Primary Care Unavailable MARVIN, KASANDRA Attending Unavailable OLEGHE, EFEWONGBE B Referring Unavailable MARVIN, KASANDRA Referring Unavailable MARVIN, KASANDRA Attending Unavailable MARVIN, KASANDRA Admitting Unavailable OLEGHE, EFEWONGBE B Primary Care Unavailable MARVIN, KASANDRA Referring Unavailable OLEGHE, EFEWONGBE B Primary Care Unavailable Dr. Good Mcguire Primary Care Provider [phone] Dr. Good Mcguire Referring Provider [phone] SABINO Robles Attending Provider SABINO Can Attending Provider [phone] Dr. Jerry Rios Attending Provider Unavailable Primary Care Provider Dr. Good Crane MD Primary Care Provider Dr. Good Mcguire MD Referring Provider [phone] Nisreen Feliciano Attending Provider Dr. Good Mcguire MD Attending Provider [phone] Dr. Good Mcguire MD Primary Care Provider Dr. Good Mcguire MD Referring Provider [phone] Nisreen Feliciano Attending Provider Bryan Alcala Attending Provider Justina Guillaume Attending Provider Justina Guillaume Attending Provider Dr. Courtney Rivera MD Attending Provider Oleghe, Efewongbe Attending Unavailable Oleghe, Efewongbe Primary Care Unavailable Oleghe, Efewongbe Referring Unavailable Oleghe, Efewongbe Primary Care Unavailable Justina Guillaume Attending Unavail able Courtney Rivera Attending Unavailable Oleghe, Efewongbe Primary Care Unavailable Courtney Rivera Referring Unavailable Oleghe, Efewongbe Primary Care Unavailable Oleghe, Efewongbe Referring Unavailable Justina Guillaume Attending Unavail able Oleghe, Efewongbe Primary Care Unavailable Oleghe, Efewongbe Referring Unavailable Courtney Rivera Attending Unavailable Courtney Rivera Attending Unavailable Oleghe, Efewongbe Primary Care Unavailable Oleghe, Efewongbe Referring Unavailable Oleghe, Efewongbe Primary Care Unavailable Oleghe, Efewongbe Referring Unavailable Oleghe, Efewongbe Attending Unavailable Oleghe, Efewongbe Primary Care Unavailable Oleghe, Efewongbe Referring Unavailable William Albrecht NP Attending Unavailable Oleghe, Efewongbe Primary Care Unavailable Oleghe, Efewongbe Referring Unavailable Nisreen Robles Attending Unavailable Oleghe, Efewongbe Attending Unavailable Oleghe, Efewongbe Primary Care Unavailable Oleghe, Efewongbe Referring Unavailable Nisreen Robles Attending Unavailable Oleghe, Efewongbe Primary Care Unavailable Oleghe, Efewongbe Referring Unavailable Bryan Alcala Attending Unavailable Oleghe, Efewongbe Primary Care Unavailable Oleghe, Efewongbe Referring Unavailable Oleghe, Efewongbe Primary Care Unavailable Kayla Traylor Attending Unavailable Oleghe, Efewongbe Primary Care Unavailable Oleghe, Efewongbe Referring Unavailable Oleghe, Efewongbe Attending Unavailable Oleghe, Efewongbe Attending Unavailable Oleghe, Efewongbe Primary Care Unavailable Oleghe, Efewongbe Referring Unavailable Allergies Allergy Classification Reported Allergen(s) Allergy Type Date of Onset Reaction(s) Facility (20 sources) codeine; Translations: [codeine] Drug Allergy 11-09-19 Unknown [facility] Work Phone: (1 source) penicillin Drug Allergy 11-09-19 [facility] Work Phone: (1 source) Sulfonamides (Antibiotic) drug allergy 11-09-19 [facility] Work Phone: (20 sources) Acetaminophen / HYDROcodone; Translations: [HYDROCODONE-ACET AMINOPHEN] Drug Allergy 08-17-20 09 Intolerance [facility] (20 sources) Contrast media; Translations: [CONTRAST DYE] Drug Allergy 05-09-20 11 Other: See Comments [facility] (16 sources) Penicillins; Translations: [PENICILLINS] Drug Allergy 08-17-20 09 Rash [facility] (20 sources) Sulfonamides (Antibiotic); Translations: [SULFA (SULFONAMIDE ANTIBIOTICS)] Drug Allergy 08-17-20 09 [facility] (11 sources) Penicillins Drug Allergy 08-17-20 09 [facility] (18 sources) Penicillins Allergy to substance 06-21-20 [facility] (18 sources) Sulfonamides (Antibiotic) Allergy to substance 06-21-20 Unknown [facility] (1 source) Penicillins Drug allergy (disorder) 04-22-20 [facility] (1 source) Sulfonamides (Antibiotic) Drug allergy (disorder) 04-22-20 [facility] Medications Current Medications Medication Drug Class(es) Dates Sig (Normalized) Sig (Original) calcium carbonate 1500 mg / cholecalciferol 800 unt chewable tablet (20 sources) Vitamin D Start: 12-20-2022 End: 04-23-2024 Calcium Carbonate-Vitamin D3 (Caltrate 600 Plus D) 600 mg-20 mcg (800 unit) tablet,chewable Active 2 {tbl} PO DAILY April 23, 2024 11:12am Start: 08-29-2017 End: 12-20-2022 take 1 tablet by mouth twice daily Calcium Carbonate-Vitamin D3 (Caltrate 600 Plus D) 600 mg (1,500 mg)-800 unit tablet,chewable Discontinued 1 {tbl} PO TWICE A DAY August 29, 2017 1:00am December 20, 2022 10:48am cetirizine hydrochloride 10 mg oral capsule (20 sources) Histamine-1 Receptor Antagonist Start: 07-07-2019 Cetirizine (Zyrtec) 10 mg capsule Active 10 mg PO NEEDED as needed for ALLERGIES 0 July 07, 2019 1:00am Start: 07-07-2019 Cetirizine (Zy rtec) 10 mg capsule Active PO DAILY July 07, 2019 12:00am Start: 08-07-2017 End: 05-07-2018 Cetirizine (Zyrtec) 10 mg ca psule Discontinued 10 mg PO as needed for allergy symptoms 0 August 07, 2017 1:00am May 07, 2018 1:16pm Start: 08-15-2016 take 1 tablet by renea th once daily cetirizine (ZYRTEC) 10 mg tablet Take 1 tablet by mouth once daily. 0 08/15/2016 Active ZYRTEC ALLERGY 1 0 MG CAPS PRN CETIRIZINE HCL [id number] Troy Benavides LPN Comment on above: Take 1 tablet by renea th once daily. cholecalciferol 0.025 mg oral tablet (20 sources) Vitamin D Start: 12-26-19 take 1 tablet by mouth once daily Cholecalciferol (Vitamin D3) 25 mcg (1,000 unit) tablet Active 25 ug PO DAILY December 26, 2023 12:00am Start: 12-18-2019 End: 12-26-2023 take 1 capsule by mouth once daily Cholecalciferol (Vitamin D3) 50 mcg (2,000 unit) capsule Discontinued 2000 U PO DAILY December 18, 2019 12:00am December 26, 2023 11:28am Start: 08-07-2017 End: 02-28-2018 take 1 capsule by mouth once Cholecalciferol (Vitamin D3) 1,000 unit capsule Discontinued 1000 U PO ONCE August 07, 2017 1:00am February 28, 2018 5:21pm Start: 06-30-2013 take 2 capsules by m outh once daily Cholecalciferol, Vitamin D3, 1,000 unit cap Take 2 capsules by mouth once daily. 0 06/30/2013 Active VITAMIN D3 1000 UNIT CAPS CHOLECALCIFEROL [id number] Troy Benavides LPN Comment on above: Take 2 capsules by m outh once daily. Comp.Stocking,Thigh,Geo g,Large (8 sources) Start: 03-16-2023 Comp.Stocking,Thigh,L dixon,Large Active 0 .Route 2 March 15, 2023 11:00pm 20 - 30 mmHg Start: 03-16-2023 Comp.Stocking, Thigh,Long,Large Active 0 .Route 2 March 16, 2023 12:00am 20 - 30 mmHg Comp.Stocking,Thigh,Long,Lar ge misc (7 sources) Start: 03-16-2023 Comp.Stocking,Thigh,Long,Lar ge misc Active 0 .Route 2 3 March 16, 2023 12:00am Edema of both lower extremities Localized edema 20 - 30 mmHg Start: 03-16-2023 Comp.Stocking, Thigh,Long,Large misc Active 0 .Route 2 March 16, 2023 12:00am 20 - 30 mmHg Compress.Stocking,Knee,Reg,L rg misc (7 sources) Start: 01-10-2024 Compress.Stocking,Knee,Reg,L rg misc Active 0 .MEDSUPPLY 2 1 January 10, 2024 12:00am Venous insufficiency (chronic) (peripheral) wear daily for venous insufficiency 20-30 mmHg Start: 01-10-2024 Compress.Stock ing,Knee,Reg,Lrg misc Active 0 .MEDSUPPLY 2 January 10, 2024 12:00am wear daily for venous insufficiency 20-30 mmHg Flash Glucose Scanning Reade r (Freestyle [place]) misc (20 sources) Start: 01-14-2024 Flash Glucose Scanning [place] (Freestyle [place]) misc Active 0 .ROUTE .MEDSUPPLY 1 0 January 14, 2024 10:17am As directed Start: 01-14-2024 Flash Glucose Scanning [place] (Freestyle [place]) misc Active 0 .ROUTE .MEDSUPPLY 1 January 14, 2024 10:17am As directed Start: 12-26-2023 End: 01-14-2024 Flash Glucose Scanning [place] r (Freestyle M[place]) misc Discontinued 0 .ROUTE .MEDSUPPLY 1 0 December 26, 2023 11:53am January 14, 2024 10:17am As directed Start: 12-26-2023 End: 01-14-2024 Flash Glucose Scanning [place] r (Freestyle M[place]) misc Discontinued 0 .ROUTE .MEDSUPPLY 1 December 26, 2023 11:53am January 14, 2024 10:17am As directed Start: 12-26-2023 Flash Glucose Scanning [place] (Freestyle [place]) misc Active 0 .ROUTE .MEDSUPPLY 1 December 26, 2023 11:53am As directed Start: 08-15-2022 End: 12-26-2023 Flash Glucose Scanning [place] r (Freestyle [place]) misc Discontinued 0 .ROUTE .MEDSUPPLY 1 0 August 15, 2022 6:05pm December 26, 2023 11:53am As directed Start: 08-15-2022 End: 12-26-2023 Flash Glucose Scanning [place] (Freestyle [place]) misc Discontinued 0 .ROUTE .MEDSUPPLY 1 August 15, 2022 6:05pm December 26, 2023 11:53am As directed Start: 08-15-2022 Flash Glucose Scanning [place] (Freestyle [place]) misc Active 0 .ROUTE .MEDSUPPLY 1 August 15, 2022 6:05pm As directed Start: 08-15-2022 Flash Glucose Scanning [place] (Freestyle [place]) misc Active 0 .ROUTE .MEDSUPPLY 1 August 15, 2022 5:05pm As directed Start: 09-22-2021 End: 08-15-2022 Flash Glucose Scanning [place] (Freestyle [place]) misc Discontinued 0 .ROUTE .MEDSUPPLY 1 0 September 22, 2021 1:00am August 15, 2022 6:05pm As directed Start: 09-22-2021 End: 08-15-2022 Flash Glucose Scanning [place] r (Freestyle [place]) misc Discontinued 0 .ROUTE .MEDSUPPLY 1 September 22, 2021 1:00am August 15, 2022 6:05pm As directed Start: 09-22-2021 End: 08-15-2022 Flash Glucose Scanning [place] (Freestyle [place]) misc Discontinued 0 .ROUTE .MEDSUPPLY 1 September 22, 2021 12:00am August 15, 2022 5:05pm As directed Start: 09-22-2021 Flash Glucose Scanning [place] (Freestyle [place]) [facility] Active 0 .ROUTE .MEDSUPPLY 1 September 22, 2021 1:00am As directed Handicap Placard (20 sources) Start: 05-15-[address] Active 0 .ROUTE .MEDSUPPLY 1 0 May 15, 2024 1:44pm Other reduced mobility As directed, length of time 3 years -Patient unable to walk 200 feet without stopping to rest -She cannot walk without the use of assistive device Start: 05-15-[address] Active 0 .ROUTE .MEDSUPPLY 1 May 15, 2024 1:44pm As directed, length of time 3 years -Patient unable to walk 200 feet without stopping to rest -She cannot walk without the use of assistive device Start: 04-24-2024 End: 05-15-2024 Handicap Placard Discontinue d 0 .ROUTE .MEDSUPPLY 1 0 April 24, 2024 1:17pm May 15, 2024 1:44pm Other reduced mobility As directed, length of time 3 years -Patient unable to walk 200 feet without stopping to rest -She cannot walk without the use of assistive device Start: 04-24-2024 End: 05-15-2024 Handicap Placard Discontinue d 0 .ROUTE .MEDSUPPLY 1 April 24, 2024 1:17pm May 15, 2024 1:44pm As directed, length of time 3 years -Patient unable to walk 200 feet without stopping to rest -She cannot walk without the use of assistive device Start: 06-28-2021 End: 04-24-2024 Handicap Placard Discontinue d 0 .ROUTE .MEDSUPPLY 1 0 June 28, 2021 11:45am April 24, 2024 1:19pm Other reduced mobility As directed, length of time 3 years Start: 06-28-2021 End: 04-24-2024 Handicap Placard Discontinue d 0 .ROUTE .MEDSUPPLY 1 June 28, 2021 11:45am April 24, 2024 1:19pm As directed, length of time 3 years Start: 06-28-[address] Active 0 .ROUTE .MEDSUPPLY 1 June 28, 2021 10:45am As directed, length of time 3 years Start: 06-28-[address] Active 0 .ROUTE .MEDSUPPLY June 28, 2021 11:45am As directed, length of time 3 years Start: 06-28-2021 End: 06-28-2021 Handicap Placard Discontinue d 0 .ROUTE .MEDSUPPLY 1 June 28, 2021 12:00am June 28, 2021 11:45am Other reduced mobility As directed, length of time 3 years Start: 06-28-2021 End: 06-28-2021 Handicap Placard Discontinue d 0 .ROUTE .MEDSUPPLY 1 June 27, 2021 11:00pm June 28, 2021 10:45am As directed, length of time 3 years Start: 06-28-2021 End: 06-28-2021 Handicap Placard Discontinue d 0 .ROUTE .MEDSUPPLY June 28, 2021 12:00am June 28, 2021 11:45am As directed, length of time 3 years hydrocortisone 25 mg/ml topical cream (18 sources) Corticosteroid Start: 10-25-2021 Hydrocortisone 2.5 % cream Active 1 NMA TOPICAL TWICE A DAY as needed for rash 28.35 October 25, 2021 1:00am 3 ml insulin glargine 100 unt/ml pen injector (20 sources) Insulin Analogue Start: 12-26-2023 Insulin Glarg ine (Lantus Solostar U-100 Insulin) 100 unit/mL (3 mL) insulin pen Active 10 U SC AT BEDTIME 9 2 December 26, 2023 11:58am Type 1 diabetes mellitus without complications Start: 09-29-2022 End: 12-26-2023 Insulin Glargine (Lantus Janae ostar U-100 Insulin) 100 unit/mL (3 mL) insulin pen Discontinued 5 U SC AT BEDTIME 3 December 05, 2023 12:41pm December 26, 2023 12:00pm Type 1 diabetes mellitus without complications Start: 09-29-2022 Insulin Glargi ne (Lantus Solostar U-100 Insulin) 100 unit/mL (3 mL) insulin pen Active 5 UNIT SC daily September 29, 2022 9:00am Start: 06-28-2021 End: 09-29-2022 Insulin Glargine (Lantus Janae ostar U-100 Insulin) 100 unit/mL (3 mL) insulin pen Discontinued 6 U SC daily 15 August 11, 2021 8:56am September 29, 2022 10:01am Type 1 diabetes mellitus without complications Start: 03-22-2020 End: 06-28-2021 Insulin Glargine (Lantus Janae ostar U-100 Insulin) 100 unit/mL (3 mL) insulin pen Discontinued 10 U SC daily 15 June 24, 2020 12:05pm June 28, 2021 11:17am Type 1 diabetes mellitus without complications Start: 12-10-2017 End: 03-22-2020 Insulin Glargine (Lantus Janae ostar U-100 Insulin) 100 unit/mL (3 mL) insulin pen Discontinued 12 U SC daily 15 December 10, 2017 1:54pm March 22, 2020 9:34am Type 1 diabetes mellitus without complications Start: 08-07-2017 End: 12-10-2017 Insulin Glargine (Lantus Janae ostar U-100 Insulin) 100 unit/mL (3 mL) insulin pen Discontinued 11 U SC ONCE August 07, 2017 1:00am December 10, 2017 12:16pm Start: 12-25-2016 LANTUS SOLOSTA R 100 UNIT/ML SOPN Use 11 units daily. INSULIN GLARGINE [id number] Jenny Laboy CERAMIC RESTORER Start: 08-15-2016 insulin glargi ne (LANTUS) 100 unit/mL (3 mL) inpn 10-12 Units daily at bedtime. 15 mL 11 08/15/2016 Active Start: 08-15-2016 insulin glargi ne (LANTUS) 100 unit/mL (3 mL) inpn 10-12 Units daily at bedtime. 15 mL 08/15/2016 Active LANTUS 100 UNIT/ ML SOLN 11 units at nighttime INSULIN GLARGINE [id number] Troy Benavides LPN Comment on above: 10-12 Units daily at bedtime. 3 ml insulin isophane, human 100 unt/ml pen injector (6 sources) Start: Insulin Nph Isoph U-100 Human (Humulin N Nph Insulin Kwikpen) 100 unit/mL (3 mL) insulin pen Active 10 U SC EVERY MORNING 3 January 21, 2025 12:00am Controlled type 1 diabetes mellitus Type 1 diabetes mellitus with other diabetic kidney complication Proteinuria, unspecified methenamine hippurate 1000 mg oral tablet (1 source) Start: Methenamine Hippurate 1 gram tablet Active 1 g PO TWICE A DAY 180 April 22, 2025 12:00am start after macrobid is completed nitrofurantoin, macrocrystals 25 mg / nitrofurantoin, monohydrate 75 mg oral capsule (20 sources) Nitrofuran Antibacterial Start: take 1 capsule by mouth twice daily at mealtime Nitrofurantoin Monohyd/M-Cryst (Macrobid) 100 mg capsule Active 100 mg PO TWICE A DAY 14 April 22, 2025 12:00am must administer with a meal/food Start: 03-15-2025 End: 03-18-2025 take 1 capsule by mouth every twelve hours at mealtime Nitrofurantoin Monohyd/M-Cryst (Macrobid) 100 mg capsule Discontinued 100 mg PO Q12H 14 7 0 March 15, 2025 12:00am March 21, 2025 12:00am March 18, 2025 9:26am must administer with a meal/food Start: 02-27-2025 End: 03-06-2025 take 1 capsule by mouth every twelve hours at mealtime Nitrofurantoin Monohyd/M-Cryst 100 mg capsule Discontinued 1 NMA PO Q12H 14 7 0 February 27, 2025 12:00am March 05, 2025 12:00am March 06, 2025 12:07am administer with a meal/food; swallow whole; do not open, crush, dissolve , or chew Start: 02-16-2021 End: 02-21-2021 take 1 capsule by mouth every twelve hours at mealtime Nitrofurantoin Monohyd/M-Cryst (Macrobid) 100 mg capsule Discontinued 100 mg PO Q12H 10 5 0 February 16, 2021 12:00am February 20, 2021 12:00am February 21, 2021 12:01am must administer with a meal/food Start: 12-24-2020 End: 12-29-2020 take 1 capsule by mouth every twelve hours at mealtime Nitrofurantoin Monohyd/M-Cryst (Macrobid) 100 mg capsule Discontinued 100 mg PO Q12H 10 5 0 December 24, 2020 12:00am December 28, 2020 12:00am December 29, 2020 12:03am must administer with a meal/food Start: 10-10-2018 End: 11-04-2018 take 1 capsule by mouth twice daily at mealtime Nitrofurantoin Monohyd/M-Cryst (Macrobid) 100 mg capsule Discontinued 100 mg PO TWICE A DAY 10 0 October 10, 2018 1:00am November 04, 2018 10:16am must administer with a meal/food Vibegron (20 sources) Start: 04-17-2025 take 1 tablet by renea th once daily Vibegron (Gemtesa) 75 mg tablet Active 75 mg PO daily 3 April 17, 2025 12:00am Start: 10-25-2021 End: 03-14-2022 take 1 tablet by mouth once daily Vibegron (Gemtesa) 75 mg tablet Discontinued 75 mg PO DAILY October 25, 2021 1:00am March 14, 2022 9:37am Start: 10-25-2021 End: 03-14-2022 take 1 tablet by mouth once daily Vibegron (Gemtesa) 75 mg tablet Discontinued 75 MG PO DAILY October 25, 2021 12:00am March 14, 2022 8:37am Start: 10-25-2021 End: 03-14-2022 take 1 tablet by mouth once daily Vibegron (Gemtesa) 75 mg tablet Discontinued 75 MG PO DAILY October 25, 2021 1:00am March 14, 2022 9:37am Start: 09-13-2021 End: 03-14-2022 take 1 tablet by mouth once daily Vibegron (Gemtesa) 75 mg tablet Discontinued 75 mg PO DAILY September 13, 2021 1:00am March 14, 2022 9:37am Start: 09-13-2021 End: 03-14-2022 take 1 tablet by mouth once daily Vibegron (Gemtesa) 75 mg tablet Discontinued 75 MG PO DAILY September 13, 2021 12:00am March 14, 2022 8:37am Start: 09-13-2021 End: 03-14-2022 take 1 tablet by mouth once daily Vibegron (Gemtesa) 75 mg tablet Discontinued 75 MG PO DAILY September 13, 2021 1:00am March 14, 2022 9:37am Completed/Discontinued Medications Medication Drug Class(es) Dates Sig (Normalized) Sig (Original) 8 hr acetaminophen 650 mg extended release oral tablet (19 sources) Start: 08-07-2017 End: 08-29-2017 take 1 tablet by mouth every eight hours as needed for pain Acetaminophen 650 mg tablet extended release Discontinued 650 mg PO Q8H as needed for pain August 07, 2017 1:00am August 29, 2017 10:04am 8 HOUR PAIN RELI EF 650 MG CR-TABS as needed ACETAMINOPHEN [id number] Troy Benavides LPN atorvastatin 40 mg oral tablet (20 sources) HMG-CoA Reductase Inhibitor Start: 05-16-2016 End: 07-10-2025 take 1 tablet by mouth once daily Atorvastatin (Lipitor) 40 mg tablet Discontinued 40 mg PO daily 90 3 May 28, 2020 7:53am March 29, 2021 10:22am Type 1 diabetes mellitus without complications LIPITOR 20 MG TA BS at bedtime ATORVASTATIN CALCIUM [id number] Jenny Laboy CERAMIC RESTORER Comment on above: Take 1 tablet by renea th once daily. calcium carbonate 1500 mg oral tablet (18 sources) Start: 08-29-20 17 End: 02-29-20 18 take 1 tablet by mouth once Calcium Carbonate (Calcium 600) 600 mg calcium (1,500 mg) tablet Discontinued 600 mg PO ONCE August 29, 2017 1:00am February 28, 2018 5:20pm calcium citrate/vitamin D3 (CITRACAL + D ORAL) (5 sources) calcium citrate/vitamin D3 (CITRACAL + D ORAL) Take by mouth once daily. 0 Active Comment on above: Take by mouth once d aily. ciprofloxacin 500 mg oral tablet (3 sources) Quinolone Antimicrobial Start: 03-18-20 End: 03-21-20 take 1 tablet by mouth once daily Ciprofloxacin Hcl (Cipro) 500 mg tablet Discontinued 500 mg PO daily 3 3 0 March 18, 2025 12:00am March 20, 2025 12:00am March 21, 2025 12:11am codeine phosphate 2 mg/ml / guaiFENesin 20 mg/ml oral solution (18 sources) Opioid Agonist Start: 08-29-20 17 End: 02-22-20 take 1 mL by mouth every six hours as needed Codeine-Guaifenesin (Cheratussin Ac) 10-100 mg/5 mL liquid Discontinued 10 mL PO EVERY 6 HOURS as needed for flu symptoms 120 0 August 29, 2017 1:00am February 21, 2018 10:03am Start: 08-29-2017 End: 02-21-2018 take 1 mL by mouth every six hours before mealtime Codeine-Guaifenesin (Cheratussin Ac) 10-100 mg/5 mL liquid Discontinued 10 ML PO EVERY 6 HOURS 120 August 29, 2017 1:00am February 21, 2018 10:03am cyclobenzaprine hydrochloride 10 mg oral tablet (20 sources) Muscle Relaxant Start: 01-10-2024 End: 04-22-2025 take 1 tablet by mouth three times daily as needed for muscle spasms Cyclobenzaprine 10 mg tablet Discontinued 10 mg PO THREE TIMES A DAY as needed for muscle spasm 90 1 January 10, 2024 12:00am April 22, 2025 9:22am Start: 05-27-2021 End: 06-01-2021 take 1 tablet by mouth three times daily as needed for muscle spasms Cyclobenzaprine 10 mg tablet Discontinued 10 mg PO THREE TIMES A DAY as needed for muscle spasm 20 5 0 May 27, 2021 12:00am May 31, 2021 12:00am June 01, 2021 12:01am desipramine hydrochloride 50 mg oral tablet (20 sources) Tricyclic Antidepressant Start: 03-22-2022 End: 06-21-2022 take 1 tablet by mouth at bedtime Desipramine 50 mg tablet Discontinued 50 mg PO AT BEDTIME 30 3 March 22, 2022 12:00am June 21, 2022 2:27pm Diabetic neuropathy Type 2 diabetes mellitus with diabetic neuropathy, unspecified Comment on above: Take 50 mg by mouth once daily. doxycycline monohydrate 100 mg oral capsule (7 sources) Tetracycline-class Drug Start: 01-12-2025 End: 03-15-2025 take 1 capsule by mouth twice daily Doxycycline Monohydrate 100 mg capsule Discontinued 100 mg PO TWICE A DAY 14 0 January 12, 2025 12:00am March 15, 2025 10:58am Echinacea (18 sources) Start: 12-18-2019 End: 02-16-2021 take 1 capsule by mouth once daily at mealtime Echinacea 380 mg capsule Discontinued 380 mg PO DAILY December 18, 2019 12:00am February 16, 2021 10:48am administer with meals Start: 12-18-2019 End: 02-16-2021 take 380 mg by mouth once daily at mealtime Echinacea Discontinued 380 MG PO DAILY December 17, 2019 11:00pm February 16, 2021 9:48am administer with meals Start: 12-18-2019 End: 02-16-2021 take 380 mg by mouth once daily at mealtime Echinacea Discontinued 380 MG PO DAILY December 18, 2019 12:00am February 16, 2021 10:48am administer with meals famotidine 20 mg oral tablet (20 sources) Histamine-2 Receptor Antagonist Start: 01-11-2023 End: 01-12-2025 take 1 tablet by mouth at bedtime Famotidine 20 mg tablet Discontinued 20 mg PO AT BEDTIME 90 2 January 10, 2024 2:11pm January 12, 2025 10:07am Comment on above: Take 20 mg by mouth twice daily. Flash Glucose Sensor (Freestyle Mook 14 Day Sensor) kit (18 sources) Start: 12-25-2019 End: 12-08-2021 Flash Glucose Sensor (Freestyle Mook 14 Day Sensor) kit Discontinued 0 .ROUTE .MEDSUPPLY 1 3 December 25, 2019 12:00am December 08, 2021 11:35am Type 1 diabetes mellitus with other specified complication E10.69 As directed TO MONITOR GLUCOSE LEVELS Start: 12-25-2019 End: 12-08-2021 Flash Glucose Sensor (Freest yle Mook 14 Day Sensor) kit Discontinued 0 .ROUTE .MEDSUPPLY 1 December 24, 2019 11:00pm December 08, 2021 10:35am As directed TO MONITOR GLUCOSE LEVELS Start: 12-25-2019 End: 12-08-2021 Flash Glucose Sensor (Freest yle Mook 14 Day Sensor) kit Discontinued 0 .ROUTE .MEDSUPPLY 1 December 25, 2019 12:00am December 08, 2021 11:35am As directed TO MONITOR GLUCOSE LEVELS gabapentin 300 mg oral capsule (20 sources) Anti-epileptic Agent Start: 08-07-2017 End: 01-21-2025 take 1 capsule by mouth at bedtime Gabapentin (Neurontin) 300 mg capsule Discontinued 300 mg PO AT BEDTIME 90 0 April 28, 2024 5:25pm July 14, 2024 5:35pm Start: 08-14-2016 take 1 capsule by mo ut once daily at bedtime gabapentin (NEURONTIN) 300 mg capsule Take 1 capsule by mouth daily at bedtime. 90 capsule 3 08/14/2016 Active Comment on above: Take 1 capsule by mo uth daily at bedtime. GLUCOSE BLOOD (2 sources) Start: 06-12-2017 ONETOUCH ULTRA BLUE STRP test BG 4 times daily ICD 10 : E10.9 GLUCOSE BLOOD [id number] Rowan K [place] [employer] ONETOUCH ULTRA B LUE STRP test BG 4 times daily GLUCOSE BLOOD [id number] [facility] [place] [employer] Insulin Degludec (Tresiba Flextouch U-100) 100 unit/mL (3 mL) insulin pen (5 sources) Start: 01-21-2025 End: 04-17-2025 Insulin Degludec (Tresiba Flextouch U-100) 100 unit/mL (3 mL) insulin pen Discontinued 5 U SC daily 3 January 21, 2025 12:00am April 17, 2025 8:46am Controlled type 1 diabetes mellitus Type 1 diabetes mellitus with other diabetic kidney complication Proteinuria, unspecified Start: 01-21-2025 Insulin Deglud ec (Tresiba Flextouch U-100) 100 unit/mL (3 mL) insulin pen Active 5 U SC daily 3 January 21, 2025 12:00am Controlled type 1 diabetes mellitus Type 1 diabetes mellitus with other diabetic kidney complication Proteinuria, unspecified 0.5 unt doses 3 ml insulin lispro 100 unt/ml pen injector (20 sources) Insulin Analog Start: 12-20-2022 End: 04-16-2025 Insulin Lispro (Humalog Kenny Kwikpen U-100) 100 unit/mL insulin pen, half-unit Discontinued 10.5 U SC .tidcm 28.35 August 12, 2024 12:55pm April 16, 2025 7:54am Controlled type 1 diabetes mellitus Type 1 diabetes mellitus without complications Start: 12-18-2019 End: 12-20-2022 inject 100 [IU] by subcutaneous injection three times daily Insulin Lispro (Humalog Kwikpen Insulin) 100 unit/mL insulin pen Discontinued 0 SC THREE TIMES A DAY 15 June 25, 2020 8:11am September 27, 2020 3:39pm 5U + sliding scale subcut three times a day Start: 12-10-2017 End: 12-18-2019 Insulin Lispro (Humalog Kwik pen Insulin) 100 unit/mL insulin pen Discontinued 0 SC THREE TIMES A DAY 15 December 10, 2017 1:55pm December 18, 2019 10:31am 2U-10U with each meal SC TID Start: 09-22-2016 Insulin Lispro , Human, (HUMALOG KWIKPEN) 100 unit/mL inpn Indications: Type 1 diabetes mellitus without complication (HCC) Use 5 units with each meal 5 Pen 5 09/22/2016 Active Comment on above: Use 5 units with eac h meal 3 ml insulin aspart, human 100 unt/ml pen injector (19 sources) Insulin Analogue Start: 08-07-2017 End: 12-10-2017 Insulin Aspart U-100 (Novolog Flexpen U-100 Insulin) 100 unit/mL insulin pen Discontinued 2 U SC THREE TIMES A DAY August 07, 2017 1:00am December 10, 2017 12:12pm NOVOLOG FLEXPEN 100 UNIT/ML SOPN 2-10 units at meals INSULIN ASPART [id number] Troy Benavides [employer] ketoconazole 20 mg/ml topical cream (20 sources) Azole Antifungal Start: 10-25-2021 End: 03-22-2022 Ketoconazole 2 % cream Discontinued 1 NMA TOPICAL TWICE A DAY 02 10October 25, 2021 1:00am March 22, 2022 10:53am Start: 12-18-2019 End: 03-16-2020 Ketoconazole 1 % shampoo Dis continued 1 NMA TOPICAL DAILY December 18, 2019 12:00am March 16, 2020 11:26am Start: 08-15-2016 End: 05-29-2017 ketoconazole (NIZORAL) 2 % s hampoo Apply 1 application to affected area once daily as needed. 0 08/15/2016 Active Comment on above: Apply 1 application to affected area once daily as needed. 10 ml lidocaine hydrochloride 10 mg/ml injection (1 source) Antiarrhythmic, Amide Local Anesthetic Start: 06-06-2022 End: 06-06-2022 lidocaine (PF) 10 mg/mL (1 %) 4 mL injection (XYLOCAINE) Start: 06-06-2022 End: 06-06-2022 lidocaine (PF) 10 mg/mL (1 % ) 4 mL injection (XYLOCAINE) lisinopril 10 mg oral tablet (20 sources) Angiotensin Converting Enzyme Inhibitor Start: 06-28-2021 End: 07-06-2021 take 2 tablets by mouth once daily Lisinopril 10 mg tablet Discontinued 20 mg PO daily June 28, 2021 11:17am July 06, 2021 11:54am Start: 06-28-2021 End: 07-06-2021 take 20 mg by mouth once daily Lisinopril Discontinued 20 MG PO daily June 28, 2021 11:17am July 06, 2021 11:54am Start: 07-25-2016 End: 06-28-2021 take 1 tablet by mouth once daily Lisinopril 10 mg tablet Discontinued 10 mg PO daily 90 November 08, 2020 1:13pm June 28, 2021 11:17am Comment on above: Take 1 tablet by renea once daily. losartan potassium 50 mg oral tablet (20 sources) Angiotensin 2 Receptor Selwyn Start: 2020 End: 2024 take 1 tablet by mouth once daily Losartan 50 mg tablet Discontinued 50 mg PO DAILY 90 March 20, 2024 7:54pm October 23, 2024 10:48am Comment on above: Take 50 mg by mouth once daily. methylPREDNISolone 4 mg oral tablet (20 sources) Corticosteroid Start: 2020 End: 2020 take 1 tablet by mouth once Methylprednisolone (Medrol (Amari)) 4 mg tablets,dose pack Discontinued 4 mg PO per package directions 21 5 0 May 27, 2021 12:00am May 31, 2021 12:00am June 01, 2021 12:01am nystatin 100 unt/mg / triamcinolone acetonide 0.001 mg/mg topical ointment (18 sources) Polyene Antifungal, Corticosteroid Start: 2021 End: 2021 Nystatin-Triamcinolone 100,000-0.1 unit/gram-% ointment Discontinued 1 NMA TOPICAL TWICE A DAY 60 1 October 25, 2021 1:00am October 25, 2021 5:24pm Start: 10-25-2021 End: 10-25-2021 Nystatin-Triamcinolone Disco ntinued 1 APPLIC TOPICAL TWICE A DAY 60 October 25, 2021 1:00am October 25, 2021 5:24pm omeprazole 40 mg delayed release oral capsule (20 sources) Proton Pump Inhibitor Start: 09-29-2022 End: 07-14-2024 take 1 capsule by mouth once daily 30 minutes before breakfast Omeprazole 40 mg capsule,delayed release(DR/EC) Discontinued 40 mg PO DAILY October 01, 2023 6:48pm January 10, 2024 2:12pm Take 30 minutes before breakfast. Comment on above: Take 40 mg by mouth once daily. 24 hr oxybutynin chloride 10 mg extended release oral tablet (20 sources) Cholinergic Muscarinic Antagonist Start: 03-14-2022 End: 04-17-2025 take 1 tablet by mouth once daily Oxybutynin Chloride 10 mg tablet extended release 24hr Discontinued 10 mg PO DAILY March 14, 2022 12:00am April 17, 2025 9:00am Comment on above: Take 10 mg by mouth once daily. phenazopyridine hydrochloride 100 mg oral tablet (18 sources) Start: 10-10-2018 End: 10-11-2018 take 1 tablet by mouth three times daily as needed for pain Phenazopyridine (Pyridium) 100 mg tablet Discontinued 100 mg PO THREE TIMES A DAY as needed for pain 6 0 0 October 10, 2018 1:00am October 10, 2018 1:00am October 11, 2018 1:16am [place] disc[place] [id number] unt/ml / trimethoprim 1 mg/ml ophthalmic solution (7 sources) Dihydrofolate Reductase Inhibitor Antibacterial, Polymyxin-class Antibacterial Start: 07-27-2024 End: 08-06-2024 Polymyxin B Sulf-Trimethoprim 10,000 unit- 1 mg/mL drops Discontinued 1 - 2 NMA OPHTHALMIC .Q3-6H 10 10 0 July 27, 2024 1:00am August 05, 2024 1:00am August 06, 2024 1:08am while awake; do not exceed 6 doses in 24 hours prednisoLONE acetate 10 mg/ml ophthalmic suspension (7 sources) Corticosteroid Start: 07-27-2024 End: 01-12-2025 Prednisolone Acetate 1 % drops,suspension Discontinued 1 NMA OPHTHALMIC THREE TIMES A DAY 5 0 July 27, 2024 1:00am January 12, 2025 10:07am rosuvastatin calcium 40 mg oral tablet (20 sources) HMG-CoA Reductase Inhibitor Start: 03-22-2022 End: 01-21-2025 take 1 tablet by mouth at bedtime Rosuvastatin 40 mg tablet Discontinued 40 mg PO AT BEDTIME 90 1 December 06, 2022 4:06pm January 01, 2023 2:19pm Controlled type 1 diabetes mellitus Mixed hyperlipidemia Type 1 diabetes mellitus with other diabetic kidney complication Proteinuria, unspecified Mixed hyperlipidemia Start: 06-22-2021 End: 09-29-2022 take 2 tablets by mouth once daily Rosuvastatin 20 mg tablet Discontinued 40 mg PO DAILY 180 August 29, 2022 11:03am September 29, 2022 10:00am Start: 06-22-2021 End: 09-29-2022 take 40 mg by mouth once daily Rosuvastatin Discontinu ed 40 MG PO DAILY 180 August 29, 2022 11:03am September 29, 2022 10:00am Start: 05-26-2021 End: 06-22-2021 take 1 tablet by mouth twice daily Rosuvastatin 20 mg tablet Discontinued 20 mg PO TWICE A DAY 180 May 26, 2021 4:26pm June 22, 2021 9:31am Start: 03-29-2021 End: 05-26-2021 take 1 tablet by mouth once daily Rosuvastatin 20 mg tablet Discontinued 20 mg PO DAILY 90 May 26, 2021 9:13am May 26, 2021 4:29pm Comment on above: Take 40 mg by mouth once daily. selenium sulfide 25 mg/ml medicated shampoo (20 sources) Start: 06-24-2020 End: 12-26-2023 Selenium Sulfide 2.5 % lotion Discontinued 1 NMA TOPICAL NEEDED as needed for Skin Cleansing November 07, 2022 11:14am December 26, 2023 11:30am Start: 03-16-2020 End: 06-24-2020 Selenium Sulfide 2.3 % shamp oo Discontinued 1 NMA TOPICAL DAILY 180 3 March 16, 2020 11:35am June 24, 2020 11:42am massage gently into wet skin of area(s) to be cleansed; work into full lather; leave on for 10 mins ; rinse off thoroughly; pat dry selenium sulfide 2.5 % shamp oo (11 sources) Start: 06-24-2020 End: 02-16-2021 selenium sulfide 2.5 % shamp oo Discontinued EACH TOPICAL June 23, 2020 11:00pm February 16, 2021 9:47am Start: 06-24-2020 End: 02-16-2021 selenium sulfide 2.5 % shamp oo Discontinued EACH TOPICAL June 24, 2020 12:00am February 16, 2021 10:47am Selenium Sulfide 2.5 % shampoo (7 sources) Start: 06-24-2020 End: 02-16-2021 Selenium Sulfide 2.5 % shampoo Discontinued NMA TOPICAL June 24, 2020 12:00am February 16, 2021 10:47am 1 ml triamcinolone acetonide 40 mg/ml injection (1 source) Corticosteroid Start: 06-06-2022 End: 06-06-2022 triamcinolone acetonide 40 mg injection (KeNALog 40) Start: 06-06-2022 End: 06-06-2022 triamcinolone acetonide 40 m g injection (KeNALog 40) Problems Active Problems Problem Classification Problem Date Documented Da te Episodic/Chronic Abdominal hernia (20 sources) Paraesophageal hernia; Translations: [Diaphragmatic hernia without obstruction or gangrene] Onset: 3 03-14-2023 Episodic Abdominal pain (20 sources) Suprapubic pain; Translations: [Pelvic and perineal pain] 10-07-2018 Episodic Allergic reactions (18 sources) Inflammatory dermatosis; Translations: [Dermatitis, unspecified] 10-25-2021 Episodic Cardiac dysrhythmias (20 sources) Atrial paroxysmal tachycardia; Translations: [Supraventricular tachycardia] Onset: 4 08-29-2021 Chronic Chronic kidney disease (19 sources) Chronic kidney disease stage 3; Translations: [Stage 3 chronic kidney disease] 06-25-2023 Chronic Deficiency and other anemia (17 sources) Anemia; Translations: [Anemia, unspecified] 10-05-2022 Episodic Deficiency and other anemia (2 sources) Anemia, unspecified; Translations: [Anemia, unspecified] 10-05-2022 Episodic Diabetes mellitus with complications (20 sources) Neuropathy due to diabetes mellitus; Translations: [Type 2 diabetes mellitus with diabetic neuropathy, unspecified] Onset: 3 Chronic Diabetes mellitus without complication (20 sources) Type 1 diabetes mellitus without complications; Translations: [Type 1 diabetes mellitus] Onset: 2 Resolved: 6 11-08-2016 Chronic Disorders of lipid metabolism (20 sources) Hyperlipidemia; Translations: [Hyperlipidemia, unspecified] Onset: 3 11-17-2016 Chronic Esophageal disorders (20 sources) Gastroesophageal reflux disease; Translations: [Gastro-esophageal reflux disease without esophagitis] Onset: 3 10-05-2022 Chronic Essential hypertension (20 sources) Hypertensive disorder; Translations: [Essential (primary) hypertension] Onset: 5 Chronic Genitourinary symptoms and ill-defined conditions (5 sources) Incontinence; Translations: [Mixed incontinence] 04-17-2025 Chronic Genitourinary symptoms and ill-defined conditions (20 sources) Increased frequency of urination; Translations: [Frequency of micturition] Onset: 5 07-06-2021 Episodic Menopausal disorders (2 sources) Atrophy of vagina; Translations: [Postmenopausal atrophic vaginitis] 04-22-2025 Chronic Nutritional deficiencies (12 sources) Vitamin D deficiency; Translations: [Vitamin D deficiency, unspecified] 09-26-2023 Chronic Osteoarthritis (20 sources) Osteoarthritis; Translations: [Arthritis] 11-08-2016 Chronic Other bone disease and musculoskeletal deformities (18 sources) Osteopenia; Translations: [Other specified disorders of bone density and structure, unspecified site] 11-04-2018 Episodic Other connective tissue disease (1 source) [...] right shoulder] Episodic Other connective tissue disease (18 sources) Difficulty balancing; Translations: [Other symptoms and signs involving the nervous system] 02-16-2021 Episodic Other connective tissue disease (1 source) Swelling of lower limb; Translations: [Other specified soft tissue disorders] 03-14-2023 Episodic Other connective tissue disease (8 sources) Atrophy of muscle of left hand; Translations: [Muscle wasting and atrophy, not elsewhere classified, left hand] 12-10-2023 Episodic Other connective tissue disease (1 source) Muscle wasting and atrophy, not elsewhere classified, left hand; Translations: [Muscular wasting and disuse atrophy, not elsewhere classified] 12-10-2023 Episodic Other diseases of bladder and urethra (2 sources) Bladder dysfunction; Translations: [Neuromuscular dysfunction of bladder, unspecified] Chronic Other diseases of bladder and urethra (20 sources) Overactive bladder; Translations: [Overactive bladder] 03-14-2022 Chronic Other diseases of bladder and urethra (2 sources) Overactive bladder; Translations: [Hypertonicity of bladder] Chronic Other diseases of bladder and urethra (1 source) Neuromuscular dysfunction of bladder, unspecified; Translations: [Bladder dysfunction] Onset: Chronic Other ear and sense organ disorders (7 sources) Tinnitus; Translations: [Tinnitus, unspecified ear] 07-14-2024 Episodic Other eye disorders (7 sources) Disorder of eye; Translations: [Other specified disorders of eye and adnexa] 07-27-2024 Episodic Other gastrointestinal disorders (17 sources) Dysphagia; Translations: [Dysphagia, unspecified] 10-05-2022 Episodic Other gastrointestinal disorders (4 sources) Dysphagia, unspecified; Translations: [Dysphagia, unspecified] 09-29-2022 Episodic Other gastrointestinal disorders (1 source) Esophageal dysphagia; Translations: [Other dysphagia] 03-14-2023 Episodic Other hereditary and degenerative nervous system conditions (17 sources) Intention tremor; Translations: [Other specified forms of tremor] 09-29-2022 Chronic Other hereditary and degenerative nervous system conditions (2 sources) Other specified forms of tremor; Translations: [Essential and other specified forms of tremor] 09-29-2022 Chronic Other liver diseases (18 sources) Liver enzymes abnormal; Translations: [Abnormal levels of other serum enzymes] 11-04-2018 Episodic Other nervous system disorders (14 sources) Neuropathy; Translations: [Polyneuropathy, unspecified] 06-21-2021 Chronic Other nervous system disorders (8 sources) Carpal tunnel syndrome of left wrist; Translations: [Carpal tunnel syndrome, left upper limb] 11-20-2023 Chronic Other nervous system disorders (8 sources) Ulnar neuropathy; Translations: [Lesion of ulnar nerve, unspecified upper limb] 12-10-2023 Chronic Other nervous system disorders (2 sources) Carpal tunnel syndrome, left upper limb; Translations: [Carpal tunnel syndrome] 11-20-2023 Chronic Other nervous system disorders (1 source) Lesion of ulnar nerve, unspecified upper limb; Translations: [Lesion of ulnar nerve] 12-10-2023 Chronic Other non-traumatic joint disorders (5 sources) Shoulder pain; Translations: [Pain in right shoulder] Episodic Other non-traumatic joint disorders (1 source) Pain in right shoulder; Translations: [Right shoulder pain, unspecified chronicity] Onset: Episodic Other non-traumatic joint disorders (15 sources) Soft tissue swelling of knee joint; Translations: [Effusion, unspecified knee] 03-22-2023 Episodic Other nutritional; endocrine; and metabolic disorders (19 sources) Overweight; Translations: [Overweight] 06-25-2023 Episodic Other nutritional; endocrine; and metabolic disorders (8 sources) Overweight; Translations: [Overweight] 06-25-2023 Episodic Other skin disorders (14 sources) Localized swelling of left forearm; Translations: [Localized swelling, mass and lump, left upper limb] 01-12-2025 Episodic Pancreatic disorders (not diabetes) (18 sources) Pancreatitis; Translations: [Acute pancreatitis without necrosis or infection, unspecified] 08-29-2017 Episodic Residual codes; unclassified (15 sources) Bilateral lower limb edema; Translations: [Localized edema] 03-16-2023 Episodic Residual codes; unclassified (3 sources) Localized edema; Translations: [Edema] 03-16-2023 Episodic Spondylosis; intervertebral disc disorders; other back problems (20 sources) Cervical radiculopathy; Translations: [Radiculopathy, cervical region] Onset: Episodic Sprains and strains (18 sources) Low back strain; Translations: [Strain of muscle, fascia and tendon of lower back, initial encounter] 05-27-2021 Episodic Superficial injury; contusion (13 sources) Contusion of right knee; Translations: [Contusion of right knee, initial encounter] 06-26-2023 Episodic Unclassified (1 source) Screening for osteoporosis ; Translations: [Encounter for screening for osteoporosis] Onset: 7 05-29-2017 Unclassified (1 source) Screening mammography ; Translations: [Encounter for screening mammogram for malignant neoplasm of breast] Onset: 7 05-29-2017 Unclassified (1 source) Screening - health check; Translations: [Encounter for general adult medical examination without abnormal findings] Onset: 7 05-29-2017 Unclassified (7 sources) Z00.00 - Encounter for general adult medical examination without abnormal findings Unclassified (5 sources) Encounter for health maintenance examination Urinary tract infections (11 sources) Urinary tract infectious disease; Translations: [Urinary tract infection, site not specified] Onset: 03-15-2025 Episodic Past or Other Problems Problem Classification Problem Date Documented Da te Episodic/Chronic Cardiac dysrhythmias (1 source) Palpitations; Translations: [Palpitations] Onset: 05-12-2010 Resolved: 02-03-2013 02-03-2013 Episodic Other aftercare (1 source) senior living (current) use of insulin; Translations: [Type 2 diabetes mellitus with other specified complication, with long-term current use of insulin (HCC)] Onset: 03-14-2023 Episodic Other and unspecified benign neoplasm (20 sources) Tubular adenoma of colon; Translations: [Benign neoplasm of colon, unspecified] Onset: 07-26-2015 07-26-2015 Episodic Other bone disease and musculoskeletal deformities (1 source) Other specified disorders of bone density and structure, unspecified site; Translations: [Other specified disorders of bone density and structure, unspecified site] Onset: 01-12-2025 Episodic Other connective tissue disease (16 sources) [...] of lower extremity] Onset: 03-14-2023 Episodic Other ear and sense organ disorders (1 source) Tinnitus, unspecified ear; Translations: [Tinnitus, unspecified ear] Onset: 07-14-2024 Episodic Other eye disorders (1 source) Other specified disorders of eye and adnexa; Translations: [Other specified disorders of eye and adnexa] Onset: 07-27-2024 Episodic Other gastrointestinal disorders (2 sources) Other dysphagia; Translations: [Esophageal dysphagia] Onset: 03-14-2023 Episodic Other nervous system disorders (1 source) Other abnormalities of gait and mobility; Translations: [Other abnormalities of gait and mobility] Onset: 06-24-2024 Episodic Other non-epithelial cancer of skin (20 sources) Basal cell carcinoma of skin; Translations: [Basal cell carcinoma of skin, unspecified] Onset: 08-15-2016 08-15-2016 Episodic Other screening for suspected conditions (not mental disorders or infectious disease) (1 source) Encounter for screening mammogram for malignant neoplasm of breast; Translations: [Encounter for screening mammogram for malignant neoplasm of breast] Onset: 09-25-2024 Episodic Unclassified (1 source) Body mass index (BMI) 25.0-25.9, adult; Translations: [Body mass index (BMI) 25.0-25.9, adult] Onset: 11-08-2016 11-08-2016 Episodic Results Test Name Value Interpretation Reference Range Facility MR/WILLIEKimberly 04-22-2025 MR/[facility] [address] [place] [address], [address] [place] [address] OFFICE VISIT Date of Service: 04/22/25 MR#: [id number] Acct: [id number] Name: TASNEEM BATISTA Donald Rep #: [id number] : 1945 Provider: Dr. Courtney Ga i, MD Age/Sex: 80/F Location: [facility] [place] Status: Signed Intake Vital Signs 04/17/25 08:48 04/22/25 09:24 Height 5 ft 2 in 5 ft 2 in Weight: 159 lb 159 lb BMI 29.0 29.0 BP 128/76 H 129/55 H Pulse 68 70 Intake Visit Reasons: Urinary tract infection Chief Complaint: urinart tract infection symptoms 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: No Accompanied by: self Is patient in pain?: Yes (bladder pain ) Pain scale (1-10): 4 Allergies codeine Allergy (Severe, Verified 04/22/25 09:22) Unknown Sulfa (Sulfonamide Antibiotics) Allergy (Severe, Verified 04/22/25 09:22) Unknown Penicillins Allergy (Mild, Verified 04/22/25 09:22) Rash Medications ???Medication ???Instructions ???Recorded ???Confirmed ???Type OneTouch Ultra Blue Test Strip #270 ea 10/07/18 04/22/25 Rx (blood sugar diagnostic) cetirizine 10 mg capsule (Zyrtec) 10 mg PO PRN PRN ALLERGIES 04/22/25 History hydrocortisone 2.5 % topical cream 1 applic topical BID PRN rash 04/22/25 Rx #28.35 grams pen needle, diabetic 31 gauge x #150 ea 12/08/21 04/22/25 Rx 5/16 (Easy Touch) blood sugar diagnostic (OneTouch #100 ea 08/17/22 04/22/25 Rx Ultra Test strips) comp.stocking,thigh,l dixon,large #2 ea 03/16/23 04/22/25 Rx cholecalciferol (vitamin D3) 25 25 mcg PO DAILY 12/26/23 04/22/25 History mcg (1,000 unit) tablet insulin glargine 100 unit/mL (3 10 unit (0.1 mL) subcut QHS #9 mL 12/26/23 04/22/25 Rx mL) subcutaneous pen (Lantus Solostar U-100 Insulin) compress.stocking,kne e,reg,lrg #2 ea 01/10/24 04/22/25 Rx flash glucose scanning reader #1 ea 01/14/24 04/22/25 Rx (FreeStyle Mook 2 [place]) calcium 600 mg (as carbonate)-vit 2 tab PO DAILY 04/23/24 04/22/25 History D3 20 mcg (800 unit) chewable tablet (Caltrate plus D) Handicap Placard #1 ea 05/15/24 04/22/25 Rx omeprazole 40 mg capsule,delayed 40 mg PO DAILY #90 caps 07/14/24 0 04/22/25 Rx release losartan 50 mg tablet 50 mg PO DAILY #90 tabs 10/23/24 0 04/22/25 Rx famotidine 20 mg tablet 20 mg PO QHS PRN 01/12/25 04/22/25 History gabapentin 300 mg capsule 300 mg PO QHS #90 caps 01/21/25 Rx (Neurontin) insulin NPH isoph U-100 human 100 10 unit (0.1 mL) subcut QAM #3 mL 01/21/25 04/22/25 Rx unit/mL (3 mL) subcutaneous pen (Humulin N NPH U-100 Insulin KwikPen) rosuvastatin 40 mg tablet 40 mg PO QHS #90 tabs 01/21/25 Rx insulin lispro 100 unit/mL 10.5 unit (0.105 mL) subcut .tidcm 04/16/25 04/22/25 Rx subcutaneous half-unit pen #28.35 mL (Humalog Kenny KwikPen (U-100)) Gemtesa 75 mg tablet (vibegron) 75 mg PO QDAY #90 tabs 04/17/25 Rx methenamine hippurate 1 gram tablet 1 g PO BID #180 tabs 04/22/25 0 04/22/25 Rx nitrofurantoin 100 mg PO BID #14 caps 04/22/25 Rx monohydrate/macrocrys tals 100 mg capsule (Macrobid) Have you fallen in the past year?: Yes (fell in the winter in September or october) Nurse's Note: Patient is having burning, bladder spasms, frequency, urgency, and incontinence. [facility] Medical History (Updated 04/22/25 @ 09:[address] Courtney Rivera MD) Vaginal atrophy Mixed incontinence Nocturia Localized swelling of left forearm Tinnitus Back pain Health care maintenance Soft tissue swelling of knee joint Bilateral lower extremity edema Hyperlipidemia Jaw clicking Wears glasses Insulin dependent diabetes mellitus Arthritis Bladder disease Anemia High cholesterol Injury of head and neck Dietary restriction Difficulty swallowing Gastric reflux Non-smoker Leg cramps History of pain when walking History of edema History of echocardiogram History of stress test Hypertension Cardiology follow-up encounter Action tremor Overactive bladder Diabetic neuropathy Dermatitis Urinary frequency Urinary urgency Difficulty balancing Breast lump Osteoarthritis Diabetes type 1, controlled Skin cancer Pancreatitis Surgical History Hx of blepharoplasty History of tonsillectomy History of total knee arthroplasty History of cholecystectomy History of carpal tunnel release H/O: hysterectomy Family History Mother Asthma Liver disease Father CVA (cerebral vascular accident) Social History Smoking Status: Never smoker second hand exposure: No alcohol intake: never substance use type: does not use what type of physical activity do you participate in: w (more content not included)... Normal [facility] MR/BMSTorieEusebia 04-17-2025 MR/[facility] [address], [address] [place] [address] OFFICE VISIT Date of Service: 04/17/25 MR#: [id number] Acct: [id number] Name: TASNEEM BATISTA Rep #: [id number] : 1945 Provider: Dr. Courtney Ga i, MD Age/Sex: 80/F Location: [facility] [place] Status: Signed Intake Vital Signs 01/21/25 11:39 04/17/25 08:48 Height 5 ft 2 in 5 ft 2 in Weight: 159 lb BMI 29.0 BP 128/76 H Pulse 68 Intake Visit Reasons: 12m oxybutynin f/u Chief Complaint: 12 month oxybutynin follow up 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: No Accompanied by: self Is patient in pain?: No Allergies codeine Allergy (Severe, Verified 04/17/25 08:46) Unknown Sulfa (Sulfonamide Antibiotics) Allergy (Severe, Verified 04/17/25 08:46) Unknown Penicillins Allergy (Mild, Verified 04/17/25 08:46) Rash Medications ???Medication ???Instructions ???Recorded ???Confirmed ???Type Porous Poweruch Ultra Blue Test Strip #270 ea 10/07/18 04/17/25 Rx (blood sugar diagnostic) cetirizine 10 mg capsule (Zyrtec) 10 mg PO PRN PRN ALLERGIES 04/17/25 History hydrocortisone 2.5 % topical cream 1 applic topical BID PRN rash 04/17/25 Rx #28.35 grams pen needle, diabetic 31 gauge x #150 ea 12/08/21 04/17/25 Rx 5/16 (Easy Touch) blood sugar diagnostic (OneTouch #100 ea 08/17/22 04/17/25 Rx Ultra Test strips) comp.stocking,thigh,l dixon,large #2 ea 03/16/23 04/17/25 Rx cholecalciferol (vitamin D3) 25 25 mcg PO DAILY 12/26/23 04/17/25 History mcg (1,000 unit) tablet insulin glargine 100 unit/mL (3 10 unit (0.1 mL) subcut QHS #9 mL 12/26/23 04/17/25 Rx mL) subcutaneous pen (Lantus Solostar U-100 Insulin) compress.stocking,kne e,reg,lrg #2 ea 01/10/24 04/17/25 Rx cyclobenzaprine 10 mg tablet 10 mg PO TID PRN muscle spasm #90 01/10/24 04/17/25 Rx tabs flash glucose scanning reader #1 ea 01/14/24 04/17/25 Rx (FreeStyle Mook 2 [place]) calcium 600 mg (as carbonate)-vit 2 tab PO DAILY 04/23/24 04/17/25 History D3 20 mcg (800 unit) chewable tablet (Caltrate plus D) Handicap Placard #1 ea 05/15/24 04/17/25 Rx omeprazole 40 mg capsule,delayed 40 mg PO DAILY #90 caps 07/14/24 0 04/17/25 Rx release losartan 50 mg tablet 50 mg PO DAILY #90 tabs 10/23/24 0 04/17/25 Rx famotidine 20 mg tablet 20 mg PO QHS PRN 01/12/25 04/17/25 History gabapentin 300 mg capsule 300 mg PO QHS #90 caps 01/21/25 Rx (Neurontin) insulin NPH isoph U-100 human 100 10 unit (0.1 mL) subcut QAM #3 mL 01/21/25 04/17/25 Rx unit/mL (3 mL) subcutaneous pen (Humulin N NPH U-100 Insulin KwikPen) rosuvastatin 40 mg tablet 40 mg PO QHS #90 tabs 01/21/25 Rx insulin lispro 100 unit/mL 10.5 unit (0.105 mL) subcut .tidcm 04/16/25 04/17/25 Rx subcutaneous half-unit pen #28.35 mL (Humalog Kenny KwikPen (U-100)) Gemtesa 75 mg tablet (vibegron) 75 mg PO QDAY #90 tabs 04/17/25 Rx Have you fallen in the past year?: No Nurse's Note: urgent care 2-3weeks ago for uti, feels better now oxybutynin- in am she leaks alot and still freq. Bladder scan PVR 26cc. PFSH Medical History Mixed incontinence Nocturia Localized swelling of left forearm Tinnitus Back pain Health care maintenance Soft tissue swelling of knee joint Bilateral lower extremity edema Hyperlipidemia Jaw clicking Wears glasses Insulin dependent diabetes mellitus Arthritis Bladder disease Anemia High cholesterol Injury of head and neck Dietary restriction Difficulty swallowing Gastric reflux Non-smoker Leg cramps History of pain when walking History of edema History of echocardiogram History of stress test Hypertension Cardiology follow-up encounter Action tremor Overactive bladder Diabetic neuropathy Dermatitis Urinary frequency Urinary urgency Difficulty balancing Breast lump Osteoarthritis Diabetes type 1, controlled Skin cancer Pancreatitis Surgical History Hx of blepharoplasty History of tonsillectomy History of total knee arthroplasty History of cholecystectomy History of carpal tunnel release H/O: hysterectomy Family History Mother Asthma Liver disease Father CVA (cerebral vascular accident) Social History Smoking Status: Never smoker second hand exposure: No alcohol intake: never substance use type: does not use what type of physical activity do you participate in: walking frequency: daily HPI HPI Urology Chief Complaint: 12 month oxybutynin follow up Details: Tasneem is an 80yo female. She is here for medication follow up. She has been takin (more content not included)... Normal [facility] Urine Cultureon 03-18-2025 URC Proteus mirabilis [place] Count >100,000 Proteus mirabilis: REACTION Ampicillin Islt DELMAR <=2 Ampicillin+Sulbac Islt DELMAR <=2 S Cefepime Islt DELMAR <=0.12 S cefTRIAXone Islt DELMAR <=0.25 S Ciprofloxacin Islt DELMAR <=0.06 S Gentamicin Islt DELMAR <=1 S levoFLOXacin Islt DELMAR <=0.12 S Meropenem Islt DELMAR <=0.25 S Nitrofurantoin Islt DELMAR 128 R Pip+Tazo Islt DELMAR <=4 S TMP SMX Islt DELMAR <=20 S Normal [facility] Comment on above: Performed By: #### L 500.4100, L500.2500 #### [facility] [address] [place], [place], [id number] Urine cultureOrdered By: Delmar Haney on 03-16-2025 Bacteria identified Cx Nom (U) Proteus mirabilis Abnormal [facility] - Chemistry and C hemistry - challengeOrdered By: Justina Haney on 03-15-2025 Bilirubin Ql (U) Negative [facility] Glucose Ql (U) Negative [facility] Ketones Ql (U) Negative [facility] pH (U) 6.5 [pH] [facility] Specific gravity (U) [Rel density] 1.015 [facility] Urobilinogen (U) [Mass/Vol] Negative [facility] - Hematology and Cell countsOrdered By: Justina Haney on 03-15-2025 Hemoglobin Ql (U) Negative [facility] - Specimen inform ationOrdered By: Justina Haeny on 03-15-2025 Clarity (U) Hazy [facility] Color (U) Yellow [facility] - UrinalysisOrder ed By: Justina Haney on 03-15-2025 Nitrite Ql (U) Negative [facility] Protein Ql (U) Trace [facility] No Panel InformationOrdered By: Justina Haney on 03-15-2025 Urine Leukocytes Positive [facility] Urine Non-Hemolyzed Blood Large [facility] Office Visit Reporton 2024 Office Visit Report [facility] [address] [place] [address] OFFICE VISIT Date of Service: 03/15/25 MR#: [id number] Acct: [id number] Patient: TASNEEM BATISTA Rep #: [id number] : 1945 Provider: RENATA Thomson Age/Sex: 79/F Location[place] [facility] Status: Signed Intake Vital Signs 01/21/25 11:39 03/15/25 10:57 Height 5 ft 2 in Weight: 160 lb BMI 29.2 BP 136/93 H 128/76 H Blood Pressure Location Lt brachial Lt brachial Position Sitting Sitting Respiration 16 Pulse 68 81 Pulse Source Monitor NIBP Temp 98.1 F Temp Source Oral Pulse Oximetry (%) 96 100 Oxygen Delivery Method room air room air Intake Visit Reasons: CONCERN FOR UTI Chief Complaint: dysuria 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: No Is patient in pain?: No Allergies codeine Allergy (Severe, Verified 03/15/25 10:58) Unknown Sulfa (Sulfonamide Antibiotics) Allergy (Severe, Verified 03/15/25 10:58) Unknown Penicillins Allergy (Mild, Verified 03/15/25 10:58) Rash Medications ???Medication ???Instructions ???Recorded ???Confirmed ???Type OneTouch Ultra Blue Test Strip #270 ea 10/07/18 01/21/25 Rx (blood sugar diagnostic) cetirizine 10 mg capsule (Zyrtec) 10 mg PO PRN PRN ALLERGIES 01/21/25 History hydrocortisone 2.5 % topical cream 1 applic topical BID PRN rash 01/21/25 Rx #28.35 grams pen needle, diabetic 31 gauge x #150 ea 12/08/21 01/21/25 Rx 5/16 (Easy Touch) oxybutynin chloride 10 mg 10 mg PO DAILY 03/14/22 01/21/25 H istory tablet,extended release 24 hr blood sugar diagnostic (OneTouch #100 ea 08/17/22 01/21/25 Rx Ultra Test strips) comp.stocking,thigh,l dixon,large #2 ea 03/16/23 01/21/25 Rx cholecalciferol (vitamin D3) 25 25 mcg PO DAILY 12/26/23 01/21/25 History mcg (1,000 unit) tablet insulin glargine 100 unit/mL (3 10 unit (0.1 mL) subcut QHS #9 mL 12/26/23 01/21/25 Rx mL) subcutaneous pen (Lantus Solostar U-100 Insulin) compress.stocking,kne e,reg,lrg #2 ea 01/10/24 01/21/25 Rx cyclobenzaprine 10 mg tablet 10 mg PO TID PRN muscle spasm #90 01/10/24 01/21/25 Rx tabs flash glucose scanning reader #1 ea 01/14/24 01/21/25 Rx (FreeStyle Mook 2 [place]) calcium 600 mg (as carbonate)-vit 2 tab PO DAILY 04/23/24 01/21/25 History D3 20 mcg (800 unit) chewable tablet (Caltrate plus D) Handicap Placard #1 ea 05/15/24 01/21/25 Rx omeprazole 40 mg capsule,delayed 40 mg PO DAILY #90 caps 07/14/24 0 01/21/25 Rx release insulin lispro 100 unit/mL 10.5 unit (0.105 mL) subcut .tidcm 08/12/24 01/21/25 Rx subcutaneous half-unit pen #28.35 mL (Humalog Kenny KwikPen (U-100)) losartan 50 mg tablet 50 mg PO DAILY #90 tabs 10/23/24 0 01/21/25 Rx famotidine 20 mg tablet 20 mg PO QHS PRN 01/12/25 01/21/25 History gabapentin 300 mg capsule 300 mg PO QHS #90 caps 01/21/25 Rx (Neurontin) insulin NPH isoph U-100 human 100 10 unit (0.1 mL) subcut QAM #3 mL 01/21/25 01/21/25 Rx unit/mL (3 mL) subcutaneous pen (Humulin N NPH U-100 Insulin KwikPen) insulin degludec 100 unit/mL (3 5 unit (0.05 mL) subcut QDAY #3 mL 01/21/25 01/21/25 Rx mL) subcutaneous pen (Tresiba FlexTouch U-100 insulin) rosuvastatin 40 mg tablet 40 mg PO QHS #90 tabs 01/21/25 Rx nitrofurantoin 100 mg PO Q12H 7 days #14 caps 03/15/25 Rx monohydrate/macrocrys tals 100 mg capsule (Macrobid) Is last menstrual period known: No Post menopausal: Yes Patient : No Have you fallen in the past year?: No Nurse's Note: dysuria x 3 days. denies abd pain, back pain, fever. concern for UTI. treated for UTI with macrobid approx 2 weeks ago here. pt completed meds and felt well approx 1 week then s/s returned. pt was unable to give enough urine for a culture at that time. [facility] Medical History (Updated 03/15/25 @ 11:30 by Justina YANEZ, PA) Localized swelling of left forearm Tinnitus Back pain Health care maintenance Soft tissue swelling of knee joint Bilateral lower extremity edema Hyperlipidemia Jaw clicking Wears glasses Insulin dependent diabetes mellitus Arthritis Bladder disease Anemia High cholesterol Injury of head and neck Dietary restriction Difficulty swallowing Gastric reflux Non-smoker Leg cramps History of pain when walking History of edema History of echocardiogram History of stress test Hypertension Cardiology follow-up encounter Action tremor Overactive bladder Diabetic neuropathy Dermatitis Urinary frequency Urinary urgency Difficulty balancing Breast lump Osteoarthritis Diabetes type 1, controlled Skin cancer Pancreatitis Surgical History Hx of blepharoplasty History of tonsillectomy History of total knee arthroplasty Hist (more content not included)... Normal [facility] - Chemistry and C hemistry - challengeOrdered By: Bryan Schrader on 02-27-2025 Bilirubin Ql (U) Negative [facility] Glucose Ql (U) Negative [facility] Ketones Ql (U) Negative [facility] pH (U) 6.0 [pH] [facility] Specific gravity (U) [Rel density] 1.025 [facility] Urobilinogen (U) [Mass/Vol] 0.1875030 mg/dL [facility] - Hematology and Cell countsOrdered By: Bryan Schrader on 02-27-2025 Hemoglobin Ql (U) Hemolyzed [facility] - Specimen inform ationOrdered By: Bryan Schrader on 02-27-2025 Clarity (U) Clear [facility] Color (U) YELLOW [facility] - UrinalysisOrder ed By: Bryan Schrader on 02-27-2025 Nitrite Ql (U) Negative [facility] Protein Ql (U) 2+ [facility] No Panel InformationOrdered By: Bryan Schrader on 02-27-2025 Urine Leukocytes Positive [facility] Urine Non-Hemolyzed Blood Large [facility] Urgent Care Visit Reporton 0 02-27-2025 Urgent Care Visit Report [facility] [address] [place] [address] OFFICE VISIT Date of Service: 02/27/25 MR#: [id number] Acct: [id number] Name: TASNEEM BATISTA Rep #: [id number] : 1945 Provider: RENATA Garza Age/Sex: 79/F Location: [facility] Status: Signed Intake Vital Signs 01/21/25 11:39 02/27/25 10:33 Height 5 ft 2 in Weight: 160 lb BMI 29.2 BP 136/93 H 148/80 H Blood Pressure Location Lt brachial Lt brachial Position Sitting Sitting Respiration 16 Pulse 68 66 Pulse Source Monitor NIBP Temp 98.1 F Temp Source Oral Pulse Oximetry (%) 96 95 Oxygen Delivery Method room air room air Intake Visit Reasons: CONCERN FOR UTI Chief Complaint: dysuria 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: No Is patient in pain?: No Allergies codeine Allergy (Severe, Verified 02/27/25 10:33) Unknown Sulfa (Sulfonamide Antibiotics) Allergy (Severe, Verified 02/27/25 10:33) Unknown Penicillins Allergy (Mild, Verified 02/27/25 10:33) Rash Is last menstrual period known: No Post menopausal: Yes Patient : No Have you fallen in the past year?: No Nurse's Note: dysuria, decreased output x 2 days. denies abd pain, back pain, fever, blood in urine. concern for UTI [facility] Medical History (Updated 02/27/25 @ 11:29 by Bryan YANEZ, PA) Localized swelling of left forearm Tinnitus Back pain Health care maintenance Soft tissue swelling of knee joint Bilateral lower extremity edema Hyperlipidemia Jaw clicking Wears glasses Insulin dependent diabetes mellitus Arthritis Bladder disease Anemia High cholesterol Injury of head and neck Dietary restriction Difficulty swallowing Gastric reflux Non-smoker Leg cramps History of pain when walking History of edema History of echocardiogram History of stress test Hypertension Cardiology follow-up encounter Action tremor Overactive bladder Diabetic neuropathy Dermatitis Urinary frequency Urinary urgency Difficulty balancing Breast lump Osteoarthritis Diabetes type 1, controlled Skin cancer Pancreatitis Surgical History Hx of blepharoplasty History of tonsillectomy History of total knee arthroplasty History of cholecystectomy History of carpal tunnel release H/O: hysterectomy Family History Mother Asthma Liver disease Father CVA (cerebral vascular accident) Social History Smoking Status: Never smoker second hand exposure: No alcohol intake: never substance use type: does not use what type of physical activity do you participate in: walking frequency: daily HPI HPI Chief Complaint: dysuria Details: TASNEEM BATISTA, is a 79 F who presents to the office today for complaint of dysuria starting yesterday. Patient also states having increasing urgency and frequency. No fever, chills or sweats. No nausea, vomiting, diarrhea. No pelvic or abdominal pain. No other associated symptoms or alleviating/aggravati ng factors. ROS Const Constitutional: Positive for other (6 system ROS completed with pertinent findings in the HPI otherwise normal.) Exam Const General: cooperative and healthy appearing Resp Effort Inspection: normal respiratory effort Auscultation: Bilateral: Clear to Auscultation Cardio Rate: regular rate Rhythm: regular rhythm GI Auscultation: normal bowel sounds General: No CVA tenderness Psych Appearance: grossly normal Mental Status: mental status grossly normal Results POC Urinalysis Dip (Clinic) Office Urine Color YELLOW Last Edit by Niki Mac MA on 02/27/25 10:50 Office Urine Clarity Clear Last Edit by Niki Mac MA on 02/27/25 10:50 Office Urine Glucose Negative Last Edit by Niki Mac MA on 02/27/25 10:50 Office Urine Ketones Negative Last Edit by Niki Mac MA on 02/27/25 10:50 Off Ur Spec Huslia 1.025 Last Edit by Niki Mac MA on 02/27/25 10:50 Office Urine pH 6.0 Last Edit by Niki Mac MA on 02/27/25 10:50 Office Urine Bilirubin Negative Last Edit by Niki Mac MA on 02/27/25 10:50 Office Urine Urobilinogen 0.2 mg/dL Last Edit by Niki Mac MA on 02/27/25 10:50 Office Urine Blood Hemolyzed Last Edit by Niki Mac MA on 02/27/25 10:50 Office Urine Blood Hemolyzed Large Last Edit by Niki Mac MA on 02/27/25 10:50 Office Urine Protein 2+ Last Edit by Niki Mac MA on 02/27/25 10:50 Office Urine Nitrate Negative Last Edit by Niki Mac MA on 02/27/25 10:50 Off Ur Leukocytes Positive Last Edit by Niki Mac MA on 02/27/25 10:50 Coding Level of Care Code Off vis,new,level 3 Diagnoses Dysuria R30.0 Assessment and Plan Assessment an (more content not included)... Normal [facility] Endocrinology Visit Reporton 01-21-2025 Endocrinology Visit Report [facility] [address] [place] [address] OFFICE VISIT Date of Service: 01/21/25 MR#: [id number] Acct: [id number] Name: TASNEEM BATISTA Rep #: [id number] : 1945 Provider: SABINO mcbride Age/Sex: 79/F [place] [facility] [place]: Signed Intake Vital Signs 09/22/24 11:38 01/12/25 10:05 01/21/25 11:39 Height 5 ft 2 in 5 ft 2 in 5 ft 2 in Weight: 157 lb 2 oz 159 lb 160 lb BMI 28.7 29.0 29.2 BP 151/87 H 140/80 H 136/93 H Blood Pressure Location Rt brachial Rt brachial Lt brachial Position Sitting Sitting Sitting Respiration 18 Pulse 74 85 68 Pulse Source Monitor Monitor Monitor Temp 98.0 F Temp Source Temporal Pulse Oximetry (%) 94 96 96 Oxygen Delivery Method room air room air room air Intake Visit Reasons: 4 M FU Chief Complaint: 4 M f/u diabetes 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: No Accompanied by: Self Is patient in pain?: Yes (General/arthritis) Pain scale (1-10): 5 Allergies codeine Allergy (Severe, Verified 01/21/25 11:45) Unknown Sulfa (Sulfonamide Antibiotics) Allergy (Severe, Verified 01/21/25 11:45) Unknown Penicillins Allergy (Mild, Verified 01/21/25 11:45) Rash Medications ???Medication ???Instructions ???Recorded ???Confirmed ???Type OneTouch Ultra Blue Test Strip #270 ea 10/07/18 01/21/25 Rx (blood sugar diagnostic) cetirizine 10 mg capsule (Zyrtec) 10 mg PO PRN PRN ALLERGIES 01/21/25 History hydrocortisone 2.5 % topical cream 1 applic topical BID PRN rash 01/21/25 Rx #28.35 grams pen needle, diabetic 31 gauge x #150 ea 12/08/21 01/21/25 Rx 5/16 (Easy Touch) oxybutynin chloride 10 mg 10 mg PO DAILY 03/14/22 01/21/25 H istory tablet,extended release 24 hr blood sugar diagnostic (OneTouch #100 ea 08/17/22 01/21/25 Rx Ultra Test strips) comp.stocking,thigh,l dixon,large #2 ea 03/16/23 01/21/25 Rx cholecalciferol (vitamin D3) 25 25 mcg PO DAILY 12/26/23 01/21/25 History mcg (1,000 unit) tablet insulin glargine 100 unit/mL (3 10 unit (0.1 mL) subcut QHS #9 mL 12/26/23 01/21/25 Rx mL) subcutaneous pen (Lantus Solostar U-100 Insulin) compress.stocking,kne e,reg,lrg #2 ea 01/10/24 01/21/25 Rx cyclobenzaprine 10 mg tablet 10 mg PO TID PRN muscle spasm #90 01/10/24 01/21/25 Rx tabs flash glucose scanning reader #1 ea 01/14/24 01/21/25 Rx (FreeStyle Mook 2 [place]) calcium 600 mg (as carbonate)-vit 2 tab PO DAILY 04/23/24 01/21/25 History D3 20 mcg (800 unit) chewable tablet (Caltrate plus D) Handicap Placard #1 ea 05/15/24 01/21/25 Rx omeprazole 40 mg capsule,delayed 40 mg PO DAILY #90 caps 07/14/24 0 01/21/25 Rx release insulin lispro 100 unit/mL 10.5 unit (0.105 mL) subcut .tidcm 08/12/24 01/21/25 Rx subcutaneous half-unit pen #28.35 mL (Humalog Kenny KwikPen (U-100)) losartan 50 mg tablet 50 mg PO DAILY #90 tabs 10/23/24 0 01/21/25 Rx doxycycline monohydrate 100 mg 100 mg PO BID #14 caps 01/12/25 Rx capsule famotidine 20 mg tablet 20 mg PO QHS PRN 01/12/25 01/21/25 History gabapentin 300 mg capsule 300 mg PO QHS #90 caps 01/21/25 Rx (Neurontin) insulin NPH isoph U-100 human 100 10 unit (0.1 mL) subcut QAM #3 mL 01/21/25 01/21/25 Rx unit/mL (3 mL) subcutaneous pen (Humulin N NPH U-100 Insulin KwikPen) insulin degludec 100 unit/mL (3 5 unit (0.05 mL) subcut QDAY #3 mL 01/21/25 01/21/25 Rx mL) subcutaneous pen (Tresiba FlexTouch U-100 insulin) rosuvastatin 40 mg tablet 40 mg PO QHS #90 tabs 01/21/25 Rx Have you fallen in the past year?: No PFSH Medical History (Updated 01/21/25 @ 16:26 by Nisreen Robles, TERRANCE-C) Localized swelling of left forearm Tinnitus Back pain Health care maintenance Soft tissue swelling of knee joint Bilateral lower extremity edema Hyperlipidemia Jaw clicking Wears glasses Insulin dependent diabetes mellitus Arthritis Bladder disease Anemia High cholesterol Injury of head and neck Dietary restriction Difficulty swallowing Gastric reflux Non-smoker Leg cramps History of pain when walking History of edema History of echocardiogram History of stress test Hypertension Cardiology follow-up encounter Action tremor Overactive bladder Diabetic neuropathy Dermatitis Urinary frequency Urinary urgency Difficulty balancing Breast lump Osteoarthritis Diabetes type 1, controlled Skin cancer Pancreatitis Surgical History Hx of blepharoplasty History of tonsillectomy History of total knee arthroplasty History of cholecystectomy History of carpal tunnel release H/O: hysterectomy Family History (more content not included)... Normal [facility] Absolute lymphocyte countOrd ered By: Good Mcguire on 01-12-2025 Lymphocytes Auto (Unsp spec) [#/Vol] 1.62 10*3/uL 0.83-4.51 [facility] Absolute neutrophil countOrd ered By: dominick[place]eleno Mcguire on 01-12-2025 Neutrophils (Bld) [#/Vol] 3.2 10*3/uL 2.0-7.7 [facility] Anion gap in Serum or Plasma Ordered By: dominick[place]eleno Mcguire on 01-12-2025 Anion gap [Moles/Vol] 11 mmol/L 5-15 [facility] Automated lymphocyte count a s percentage of total leukocytesOrdered By: Good Mcguire on 01-12-2025 Lymphocytes/100 WBC Auto (Unsp spec) 29.0 % 19-41 [facility] BUN/creatinine ratioOrdered By: blayne Mcguire on 01-12-2025 Urea nitrogen/Creatinine [Mass ratio] 30.7 mg/mg High 10-20 [facility] Basophil percentageOrdered B y: blayne Mcguire on 01-12-2025 Basophils/100 WBC (Bld) 1.1 % High 0-1 [facility] Bilirubin, totalOrdered By: Good Mcguire on 01-12-2025 Bilirubin [Mass/Vol] 0.40 mg/dL 0.00-1.30 [facility] CBC W/Diff, Automatedon 01-01 Absolute Lymph 1.62 X10 3/uL Normal 0.83-4.51 [facility] Comment on above: Performed By: #### L 506.1001, L500.4050, L100.0100 #### [facility] [address] [place], [address] Absolute Neut 3.2 X10 3/uL Normal 2.0-7.7 [facility] Comment on above: Performed By: #### L 506.1001, L500.4050, L100.0100 #### [facility] [address] [place], [address] Basophils/100 WBC (Bld) 1.1 % High 0-1 [facility] Comment on above: Performed By: #### L 506.1001, L500.4050, L100.0100 #### [facility] [address] [place], [address] Eosinophils/100 WBC (Bld) 4.5 % Normal 0-5 [facility] Comment on above: Performed By: #### L 506.1001, L500.4050, L100.0100 #### [facility] [address] [place], [address] Erythrocyte distribution width (RBC) [Ratio] 14.9 % High 11.6-14.6 [facility] Comment on above: Performed By: #### L 506.1001, L500.4050, L100.0100 #### [facility] [address] [place], [address] Hematocrit (Bld) [Volume fraction] 42.1 % Normal 37-47 [facility] Comment on above: Performed By: #### L 506.1001, L500.4050, L100.0100 #### [facility] [address] [place], [address] Hemoglobin (Bld) [Mass/Vol] 13.4 g/dL Normal 12.0-15.0 [facility] Comment on above: Performed By: #### L 506.1001, L500.4050, L100.0100 #### [facility] [address] [place], [address] IG% 0.200 Normal 0.0-0.9 [facility] Comment on above: Result Comment: IG% - Immature Granulocytes (promyelocytes, myelocytes and metamyelocytes) > 1% indicates that a LEFT SHIFT is Present. Performed By: #### L 506.1001, L500.4050, L100.0100 #### [facility] [address] [place], [address] Lymphocytes/100 WBC (Bld) 29.0 % Normal 19-41 [facility] Comment on above: Performed By: #### L 506.1001, L500.4050, L100.0100 #### [facility] [address] [place], [address] MCH (RBC) [Entitic mass] 28.8 pg Normal 27.0-32.0 [facility] Comment on above: Performed By: #### L 506.1001, L500.4050, L100.0100 #### [facility] [address] [place], [address] MCHC (RBC) [Mass/Vol] 31.8 g/dL Low 32-36 [facility] Comment on above: Performed By: #### L 506.1001, L500.4050, L100.0100 #### [facility] [address] [place], [address] MCV (RBC) [Entitic vol] 90.5 fL Normal 81-99 [facility] Comment on above: Performed By: #### L 506.1001, L500.4050, L100.0100 #### [facility] [address] [place], [address] Monocytes/100 WBC (Bld) 8.8 % Normal 0-10 [facility] Comment on above: Performed By: #### L 506.1001, L500.4050, L100.0100 #### [facility] [address] [place], [address] Neutrophils/100 WBC (Bld) 56.4 % Normal 47-70 [facility] Comment on above: Performed By: #### L 506.1001, L500.4050, L100.0100 #### [facility] [address] [place], [address] Nucleated RBC (Bld) [#/Vol] 0 10*3/uL Normal 0-5 [facility] Comment on above: Performed By: #### L 506.1001, L500.4050, L100.0100 #### [facility] [address] [place], [address] Platelet mean volume (Bld) [Entitic vol] 11.9 fL Normal 6.2-12.0 [facility] Comment on above: Performed By: #### L 506.1001, L500.4050, L100.0100 #### [facility] [address] [place], [address] Platelets (Bld) [#/Vol] 151 10*3/uL Normal 150-450 [facility] Comment on above: Performed By: #### L 506.1001, L500.4050, L100.0100 #### [facility] [address] [place], [address] RBC (Bld) [#/Vol] 4.65 10*6/uL Normal 4.2-5.4 [facility] Comment on above: Performed By: #### L 506.1001, L500.4050, L100.0100 #### [facility] [address] [place], [address] RDW SD 49.6 fl High 35.1-43.9 [facility] Comment on above: Performed By: #### L 506.1001, L500.4050, L100.0100 #### [facility] [address] [place], [address] WBC (Bld) [#/Vol] 5.6 10*3/uL Normal 4.4-11.0 [facility] Comment on above: Performed By: #### L 506.1001, L500.4050, L100.0100 #### [facility] [address] [place], [address] Carbon dioxide, total [Moles /volume] in Central venous bloodOrdered By: Good Mcguire on 01-12-2025 CO2 [Moles/Vol] 24.6 mmol/L 21.0-32.0 [facility] Chloride assayOrdered By: Mehrdad Mcguire on 01-12-2025 Chloride [Moles/Vol] 110 mmol/L High 98-108 [facility] Comprehensive Metabolic Prof ilon 01-12-2025 Albumin [Mass/Vol] 4.1 g/dL Normal 3.4-4.8 [facility] Comment on above: Performed By: #### L 506.1001, L500.4050, L100.0100 #### [facility] [address] [place], [address] Albumin/Globulin [Mass ratio] 1.5 {ratio} Normal 0.9-2.4 [facility] Comment on above: Performed By: #### L 506.1001, L500.4050, L100.0100 #### [facility] [address] [place], [address] ALK PHOS 68 U/L Normal 35-104 [facility] Comment on above: Performed By: #### L 506.1001, L500.4050, L100.0100 #### [facility] [address] [place], [address] ALT [Catalytic activity/Vol] 15 U/L Normal <=34 [facility] Comment on above: Performed By: #### L 506.1001, L500.4050, L100.0100 #### [facility] [address] [place], [address] AST [Catalytic activity/Vol] 28 U/L Normal <=31 [facility] Comment on above: Performed By: #### L 506.1001, L500.4050, L100.0100 #### [facility] [address] [place], [address] Bilirubin [Mass/Vol] 0.40 mg/dL Normal 0.00-1.30 [facility] Comment on above: Performed By: #### L 506.1001, L500.4050, L100.0100 #### [facility] [address] [place], [address] BUN/CRE 30.7 RATIO High 10-20 [facility] Comment on above: Performed By: #### L 506.1001, L500.4050, L100.0100 #### [facility] [address] [place], [address] Calcium [Mass/Vol] 9.8 mg/dL Normal 7.6-11.0 [facility] Comment on above: Performed By: #### L 506.1001, L500.4050, L100.0100 #### [facility] [address] [place], [address] Chloride [Moles/Vol] 110 mmol/L High 98-108 [facility] Comment on above: Performed By: #### L 506.1001, L500.4050, L100.0100 #### [facility] [address] [place], [address] CO2 [Moles/Vol] 24.6 mmol/L Normal 21.0-32.0 [facility] Comment on above: Performed By: #### L 506.1001, L500.4050, L100.0100 #### [facility] [address] [place], [address] Creatinine [Mass/Vol] 0.96 mg/dL Normal 0.70-1.20 [facility] Comment on above: Performed By: #### L 506.1001, L500.4050, L100.0100 #### [facility] [address] [place], [address] GAP 11 Normal 5-15 [facility] Comment on above: Performed By: #### L 506.1001, L500.4050, L100.0100 #### [facility] [address] [place], [address] GFR/1.73 sq M.predicted among non-blacks MDRD (S/P/Bld) [Vol rate/Area] 60 mL/min/{1.73_m2} Normal >60 [facility] Comment on above: Result Comment: mL/m in/1.73m2 CKD-EPI Creatinine Equation (2020) Performed By: #### L 506.1001, L500.4050, L100.0100 #### [facility] [address] [place], [address] Globulin (S) [Mass/Vol] 2.7 g/dL Normal 2.2-4.2 [facility] Comment on above: Performed By: #### L 506.1001, L500.4050, L100.0100 #### [facility] [address] [place], [address] Glucose [Mass/Vol] 61 mg/dL Low 70-99 [facility] Comment on above: Performed By: #### L 506.1001, L500.4050, L100.0100 #### [facility] [address] [place], [address] Potassium [Moles/Vol] 4.2 mmol/L Normal 3.3-5.1 [facility] Comment on above: Performed By: #### L 506.1001, L500.4050, L100.0100 #### [facility] [address] [place], [address] Sodium [Moles/Vol] 146 mmol/L High 133-145 [facility] Comment on above: Performed By: #### L 506.1001, L500.4050, L100.0100 #### [facility] [address] [place], [address] T PROT 6.8 g/dL Normal 5.9-8.4 [facility] Comment on above: Performed By: #### L 506.1001, L500.4050, L100.0100 #### [facility] [address] [place], [address] Urea nitrogen [Mass/Vol] 29 mg/dL High 4-19 [facility] Comment on above: Performed By: #### L 506.1001, L500.4050, L100.0100 #### [facility] [address] [place], [address] Eosinophil percentageOrdered By: Good Mcguire on 01-12-2025 Eosinophils/100 WBC (Bld) 4.5 % 0-5 [facility] Erythrocyte distribution wid th ratioOrdered By: Good Mcguire on 01-12-2025 Erythrocyte distribution width (RBC) [Ratio] 14.9 % High 11.6-14.6 [facility] Erythrocyte distribution wid th standard deviationOrdered By: Good Mcguire on 01-12-2025 Erythrocyte distribution width (RBC) [Ratio] 49.6 fl High 35.1-43.9 [facility] Glomerular filtration rate ( GFR) estimation/1.73 sq m using serum, plasma, or whole bOrdered By: Good Mcguire on 01-12-2025 GFR/1.73 sq M.predicted among non-blacks MDRD (S/P/Bld) [Vol rate/Area] 60 mL/min/{1.73_m2} >60 [facility] Comment on above: mL/min/1.73m2 CKD-EP I Creatinine Equation (2020) Hematocrit Auto (Bld) [Volum e fraction]Ordered By: Good Mcguire on 01-12-2025 Hematocrit (Bld) [Volume fraction] 42.1 % 37-47 [facility] Hemoglobin measurementOrdere d By: Good Mcguire on 01-12-2025 Hemoglobin (Bld) [Mass/Vol] 13.4 g/dL 12.0-15.0 [facility] Immature granulocytes/100 WB C Auto (Bld)Ordered By: Good Mcguire on 01-12-2025 Immature granulocytes/100 WBC (Bld) 0.200 % 0.0-0.9 [facility] Comment on above: IG% - Immature Granu locytes (promyelocytes, myelocytes and metamyelocytes) > 1% indicates that a LEFT SHIFT is Present. Internal Medicine Office Vis itomichele 01-12-2025 Internal Medicine Office Visit [facility] [address] [place] [address] OFFICE VISIT Date of Service: 01/12/25 MR#: [id number] Acct: [id number] Name: TASNEEM BATISTA Rep #: [id number] : 1945 Provider: Dr. Good dee MD Age/Sex: 79/F Location: [facility] [place] Status: Signed Intake Vital Signs 07/14/24 10:52 09/22/24 11:38 01/12/25 10:05 Height 5 ft 2 in 5 ft 2 in 5 ft 2 in Weight: 159 lb BMI 29.0 BP 140/80 H Blood Pressure Location Rt brachial Position Sitting Respiration 18 Pulse 85 Pulse Source Monitor Temp 98.0 F Temp Source Temporal Pulse Oximetry (%) 96 Oxygen Delivery Method room air Intake Visit Reasons: 6 M FU Chief Complaint: 6 M FU Is patient in pain?: Yes (4 pain all over ) Allergies codeine Allergy (Severe, Verified 01/12/25 10:01) Unknown Sulfa (Sulfonamide Antibiotics) Allergy (Severe, Verified 01/12/25 10:01) Unknown Penicillins Allergy (Mild, Verified 01/12/25 10:01) Rash Medications ???Medication ???Instructions ???Recorded ???Confirmed ???Type OneTouch Ultra Blue Test Strip #270 ea 10/07/18 01/12/25 Rx (blood sugar diagnostic) cetirizine 10 mg capsule (Zyrtec) 10 mg PO PRN PRN ALLERGIES 01/12/25 History hydrocortisone 2.5 % topical cream 1 applic topical BID PRN rash 01/12/25 Rx #28.35 grams pen needle, diabetic 31 gauge x #150 ea 12/08/21 01/12/25 Rx 5/16 (Easy Touch) oxybutynin chloride 10 mg 10 mg PO DAILY 03/14/22 01/12/25 H istory tablet,extended release 24 hr blood sugar diagnostic (OneTouch #100 ea 08/17/22 01/12/25 Rx Ultra Test strips) comp.stocking,thigh,l dixon,large #2 ea 03/16/23 01/12/25 Rx cholecalciferol (vitamin D3) 25 25 mcg PO DAILY 12/26/23 01/12/25 History mcg (1,000 unit) tablet insulin glargine 100 unit/mL (3 10 unit (0.1 mL) subcut QHS #9 mL 12/26/23 01/12/25 Rx mL) subcutaneous pen (Lantus Solostar U-100 Insulin) rosuvastatin 40 mg tablet 40 mg PO QHS #90 tabs 12/26/2308/27 Rx compress.stocking,kne e,reg,lrg #2 ea 01/10/24 01/12/25 Rx cyclobenzaprine 10 mg tablet 10 mg PO TID PRN muscle spasm #90 01/10/24 01/12/25 Rx tabs flash glucose scanning reader #1 ea 01/14/24 01/12/25 Rx (FreeStyle Mook 2 [place]) calcium 600 mg (as carbonate)-vit 2 tab PO DAILY 04/23/24 01/12/25 History D3 20 mcg (800 unit) chewable tablet (Caltrate plus D) Handicap Placard #1 ea 05/15/24 01/12/25 Rx gabapentin 300 mg capsule 300 mg PO QHS #90 caps 07/14/24 Rx (Neurontin) omeprazole 40 mg capsule,delayed 40 mg PO DAILY #90 caps 07/14/24 0 01/12/25 Rx release insulin lispro 100 unit/mL 10.5 unit (0.105 mL) subcut .tidcm 08/12/24 01/12/25 Rx subcutaneous half-unit pen #28.35 mL (Humalog Kenny KwikPen (U-100)) losartan 50 mg tablet 50 mg PO DAILY #90 tabs 10/23/24 0 01/12/25 Rx doxycycline monohydrate 100 mg 100 mg PO BID #14 caps 01/12/25 Rx capsule famotidine 20 mg tablet 20 mg PO QHS PRN 01/12/25 History Have you fallen in the past year?: No PFSH Medical History (Updated 01/12/25 @ 12:[address] Good Mcguire MD) Localized swelling of left forearm Tinnitus Neuropathy Back pain Health care maintenance Soft tissue swelling of knee joint Bilateral lower extremity edema Hyperlipidemia Jaw clicking Wears glasses Insulin dependent diabetes mellitus Arthritis Bladder disease Anemia High cholesterol Injury of head and neck Dietary restriction Difficulty swallowing Gastric reflux Non-smoker Leg cramps History of pain when walking History of edema History of echocardiogram History of stress test Hypertension Cardiology follow-up encounter Action tremor Overactive bladder Diabetic neuropathy Dermatitis Urinary frequency Urinary urgency Difficulty balancing Breast lump Osteoarthritis Diabetes type 1, controlled Skin cancer Pancreatitis Surgical History Hx of blepharoplasty History of tonsillectomy History of total knee arthroplasty History of cholecystectomy History of carpal tunnel release H/O: hysterectomy Family History Mother Asthma Liver disease Father CVA (cerebral vascular accident) Social History Smoking Status: Never smoker second hand exposure: No alcohol intake: never substance use type: does not use what type of physical activity do you participate in: walking frequency: daily HPI HPI Chief Complaint: 6 M FU Details: TASNEEM BATISTA, is a 79 F who presents to the office today for follow-up of her chronic conditions. Also has some concerns. A few months ago, had an injury to left forearm by he (more content not included)... Normal [facility] - Chemistry and C hemistry - challengeOrdered By: Good Mcguire on 01-12-2025 AST [Catalytic activity/Vol] 28 U/L <32 [facility] MCV (mean corpuscular volume ) determinationOrdered By: Good Mcguire on 01-12-2025 MCV (RBC) [Entitic vol] 90.5 fL 81-99 [facility] Mean corpuscular hemoglobin (MCH) determinationOrdered By: Good Mcguire on 01-12-2025 MCH (RBC) [Entitic mass] 28.8 pg 27.0-32.0 [facility] Mean corpuscular hemoglobin concentration (MCHC) determinationOrdered By: Good Mcguire on 01-12-2025 MCHC (RBC) [Mass/Vol] 31.8 g/dL Low 32-36 [facility] Mean platelet volume determi nationOrdered By: Good Mcguire on 01-12-2025 Platelet mean volume (Bld) [Entitic vol] 11.9 fL 6.2-12.0 [facility] Monocyte percentageOrdered B y: Good Mcguire on 01-12-2025 Monocytes/100 WBC (Bld) 8.8 % 0-10 [facility] Neutrophil percentageOrdered By: Good Mcguire on 01-12-2025 Neutrophils/100 WBC (Bld) 56.4 % 47-70 [facility] Nucleated red blood cell per centageOrdered By: Good Mcguire on 01-12-2025 Nucleated RBC/100 WBC (Bld) [Ratio] 0 % 0-5 [facility] Platelet countOrdered By: Mehrdad Mcguire on 01-12-2025 Platelets (Bld) [#/Vol] 151 10*3/uL 150-450 [facility] Potassium measurement (mass/ volume)Ordered By: Good Mcguire on 01-12-2025 Potassium (Unsp spec) [Mass/Vol] 4.2 mmol/L 3.3-5.1 [facility] RBC Auto (Bld) [#/Vol]Ordere d By: Good Mcguire on 01-12-2025 RBC (Bld) [#/Vol] 4.65 10*6/uL 4.2-5.4 [facility] Serum creatinine measurement (mass/volume)Ordered By: Good Mcguire on 01-12-2025 Creatinine [Mass/Vol] 0.96 mg/dL 0.70-1.20 [facility] Serum globulin measurementOr dered By: Good Mcguire on 01-12-2025 Globulin (S) [Mass/Vol] 2.7 g/dL 2.2-4.2 [facility] Serum glucose measurement (m ass/volume)Ordered By: Good Mcguire on 01-12-2025 Glucose [Mass/Vol] 61 mg/dL Low 70-99 [facility] Serum or plasma alanine an otransferase (ALT) measurementOrdered By: Good Mcguire on 01-12-2025 ALT [Catalytic activity/Vol] 15 U/L <35 [facility] Serum or plasma albumin jarad urement (mass/volume)Ordered By: Good Mcguire on 01-12-2025 Albumin [Mass/Vol] 4.1 g/dL 3.4-4.8 [facility] Serum or plasma albumin/glob ulin mass ratioOrdered By: Good Mcguire on 01-12-2025 Albumin/Globulin [Mass ratio] 1.5 {ratio} 0.9-2.4 [facility] Serum or plasma alkaline akil sphatase measurementOrdered By: Good Mcguire on 01-12-2025 ALP [Catalytic activity/Vol] 68 U/L 35-104 [facility] Serum or plasma calcium jarad urement (mass/volume)Ordered By: Good Mcguire on 01-12-2025 Calcium [Mass/Vol] 9.8 mg/dL 7.6-11.0 [facility] Serum or plasma urea nitroge n measurement (mass/volume)Ordered By: Good Mcguire on 01-12-2025 Urea nitrogen [Mass/Vol] 29 mg/dL High 4-19 [facility] Sodium levelOrdered By: Tarah Mcguire on 01-12-2025 Sodium [Moles/Vol] 146 mmol/L High 133-145 [facility] Total proteinOrdered By: Raffaele Mcguire on 01-12-2025 Protein [Mass/Vol] 6.8 g/dL 5.9-8.4 [facility] Vitamin D,25 Hydroxyon 01-12 Vitamin D 25-OH 36.6 ng/mL Normal 30-100 [facility] Comment on above: Result Comment: Kait min D Status Deficiency: <20 ng/mL (50nmol/L) Insufficiency: 20-30 ng/mL (50-75 nmol/L) Sufficiency: 30-100 ng/mL (75-250 nmol/L) Toxicity: >100 ng/mL (>250 nmol/L) Performed By: #### L 506.1001, L500.4050, L100.0100 #### [facility] [address] [place], [place], [address] White blood cell (WBC) count Ordered By: Good Mcguire on 01-12-2025 WBC (Bld) [#/Vol] 5.6 10*3/uL 4.4-11.0 [facility] Endocrinology Visit Reporton 09-22-2024 Endocrinology Visit Report [facility] [address] [place] [address] OFFICE VISIT Date of Service: 09/22/24 MR#: [id number] Acct: [id number] Name: TASNEEM BATISTA Donald Rep #: [id number] : 1945 Provider: SABINO mcbride Age/Sex: 79/F [place] [facility] [place] Status: Signed Intake Vital Signs 04/23/24 11:07 07/14/24 10:52 07/27/24 10:18 09/22/24 11:38 Height 5 ft 2 in 5 ft 2 in 5 ft 2 in 5 ft 2 in Weight: 157 lb 2 oz BMI 28.7 BP 151/87 H Blood Pressure Location Rt brachial Position Sitting Pulse 74 Pulse Source Monitor Pulse Oximetry (%) 94 Oxygen Delivery Method room air Intake Visit Reasons: 5 M FU Chief Complaint: f/u diabetes Is patient in pain?: No Allergies codeine Allergy (Severe, Verified 09/22/24 11:42) Unknown Sulfa (Sulfonamide Antibiotics) Allergy (Severe, Verified 09/22/24 11:42) Unknown Penicillins Allergy (Mild, Verified 09/22/24 11:42) Rash Medications ???Medication ???Instructions ???Recorded ???Confirmed ???Type OneTouch Ultra Blue Test Strip #270 ea 10/07/18 09/22/24 Rx (blood sugar diagnostic) cetirizine 10 mg capsule (Zyrtec) 10 mg PO PRN PRN ALLERGIES 07/07/19 09/22/24 History hydrocortisone 2.5 % topical cream 1 applic topical BID PRN rash 10/25/21 09/22/24 Rx #28.35 grams pen needle, diabetic 31 gauge x #150 ea 12/08/21 09/22/24 Rx 5/16 (Easy Touch) oxybutynin chloride 10 mg 10 mg PO DAILY 03/14/22 09/22/24 History tablet,extended release 24 hr blood sugar diagnostic (OneTouch #100 ea 08/17/22 09/22/24 Rx Ultra Test strips) comp.stocking,thigh,l dixon,large #2 ea 03/16/23 09/22/24 Rx cholecalciferol (vitamin D3) 25 25 mcg PO DAILY 12/26/23 09/22/24 History mcg (1,000 unit) tablet insulin glargine 100 unit/mL (3 10 unit (0.1 mL) subcut QHS #9 mL 12/26/23 09/22/24 Rx mL) subcutaneous pen (Lantus Solostar U-100 Insulin) rosuvastatin 40 mg tablet 40 mg PO QHS #90 tabs 12/26/23 09/22/24 Rx compress.stocking,kne e,reg,lrg #2 ea 01/10/24 09/22/24 Rx cyclobenzaprine 10 mg tablet 10 mg PO TID PRN muscle spasm #90 01/10/24 09/22/24 Rx tabs famotidine 20 mg tablet 20 mg PO QHS #90 tabs 01/10/24 09/22/24 Rx flash glucose scanning reader #1 ea 01/14/24 09/22/24 Rx (FreeStyle Mook 2 [place]) losartan 50 mg tablet 50 mg PO DAILY #90 tabs 03/20/24 09/22/24 Rx calcium 600 mg (as carbonate)-vit 2 tab PO DAILY 04/23/24 09/22/24 History D3 20 mcg (800 unit) chewable tablet (Caltrate plus D) Handicap Placard #1 ea 05/15/24 09/22/24 Rx gabapentin 300 mg capsule 300 mg PO QHS #90 caps 07/14/24 09/22/24 Rx (Neurontin) omeprazole 40 mg capsule,delayed 40 mg PO DAILY #90 caps 07/14/24 09/22/24 Rx release prednisolone acetate 1 % eye 1 drp ophthalmic (eye) TID #5 mL 07/27/24 09/22/24 Rx drops,suspension insulin lispro 100 unit/mL 10.5 unit (0.105 mL) subcut .tidcm 08/12/24 09/22/24 Rx subcutaneous half-unit pen #28.35 mL (Humalog Kenny KwikPen (U-100)) Have you fallen in the past year?: No PFSH Medical History Tinnitus Neuropathy Back pain Health care maintenance Soft tissue swelling of knee joint Bilateral lower extremity edema Hyperlipidemia Jaw clicking Wears glasses Insulin dependent diabetes mellitus Arthritis Bladder disease Anemia High cholesterol Injury of head and neck Dietary restriction Difficulty swallowing Gastric reflux Non-smoker Leg cramps History of pain when walking History of edema History of echocardiogram History of stress test Hypertension Cardiology follow-up encounter Action tremor Overactive bladder Diabetic neuropathy Dermatitis Urinary frequency Urinary urgency Difficulty balancing Breast lump Osteoarthritis Diabetes type 1, controlled Skin cancer Pancreatitis Surgical History Hx of blepharoplasty History of tonsillectomy History of total knee arthroplasty History of cholecystectomy History of carpal tunnel release H/O: hysterectomy Family History Mother Asthma Liver disease Father CVA (cerebral vascular accident) Social History Smoking Status: Never smoker second hand exposure: No alcohol intake: never substance use type: does not use what type of physical activity do you participate in: walking frequency: daily HPI HPI Chief Complaint: f/u diabetes Details: TASNEEM BATISTA, is a 79 F who presents to the office today for evaluation and management of diabetes. A1C today is 7.9%, increased from 04/23/24 at 6.9%. She has gained 2 lbs since that time. This A1C is unusually elev (more content not included)... Normal [facility] Laboratory - Hematology and Cell countson 09-22-2024 HbA1c (Bld) [Mass fraction] 7.6 % High 4.2-6.3 [facility] SCRN MAMM (CAD)W/MEME BILATo n 08-29-2024 SCRN MAMM (CAD)W/MEME BILAT [facility] Imaging Services [address] [place] [address] SCRN MAMM (CAD)W/MEME BILAT MR#: [id number] Acct: [id number] Name: TASNEEM BATISTA Rep #: [id number] : 1945 F 79 From: Zuhair Cardenas MD PCP: Dr. Good Mcguire MD Status: REG [facility] Study: SCRN MAMM (CAD)W/MEME BILAT Date of Exam: 08/04 03/26 Exam# [id number] Ordering Dr: Good Mcguire MD [id number] MAMMOGRAPHY - BILATERAL SCREENING 3-D TOMOSYNTHESIS REASON FOR EXAM: Female, 79 years old. Breast Cancer Screening PERTINENT HISTORY: No significant family history. TECHNIQUE: 2-D mammograms and 3-D Tomosynthesis of the breast (s) were performed. CAD was performed. COMPARISON: 08/28/2023 FINDINGS: The breast composition is composed of scattered fibroglandular density. Scattered benign calcifications are seen. No dense spiculated masses or suspicious microcalcifications are identified. No architectural distortion is identified. There is no skin thickening or retraction. There has been no significant change since the prior study. BI/SCRN MAMM (CAD)W/MEME BILAT IMPRESSION: No mammographic signs of malignancy. Routine yearly mammograms recommended. ASSESSMENT CATEGORY: BIRADS Category 1: Negative. A letter regarding these results will be sent to the patient by the facility within 30 days. FOLLOW UP RECOMMENDATION: Yearly follow up mammogram recommended. (A) Approximately 10% of breast cancers are not detected by mammography. A normal mammogram should not delay biopsy of a clinically suspicious abnormality. Electronically Signed: Zuhair Cardenas MD at 19:44 EST , CC: Dr. 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 Normal [facility] Urgent Care Visit Reporton 1 09-26-2023 Urgent Care Visit Report [facility] [address], [address] [place] [address] OFFICE VISIT Date of Service: 07/27/24 MR#: [id number] Acct: [id number] Name: TASNEEM BATISTA Rep #: [id number] : 1945 Provider: SABINO redmond Age/Sex: 79/F Location: [facility] Status: Signed Intake Vital Signs 07/14/24 10:52 07/27/24 10:18 Height 5 ft 2 in 5 ft 2 in Weight: 155 lb BMI 28.3 BP 132/82 H 128/78 H Blood Pressure Location Lt brachial Rt brachial Position Sitting Sitting Respiration 14 12 Pulse 68 62 Pulse Source Monitor NIBP Temp 97.1 F L Temp Source Temporal Pulse Oximetry (%) 99 95 Oxygen Delivery Method room air room air Intake Visit Reasons: PINK EYE 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: No Is patient in pain?: No Allergies codeine Allergy (Severe, Verified 07/27/24 10:19) Unknown Sulfa (Sulfonamide Antibiotics) Allergy (Severe, Verified 07/27/24 10:19) Unknown Penicillins Allergy (Mild, Verified 07/27/24 10:19) Rash Is last menstrual period known: No Post menopausal: No Patient : No Have you fallen in the past year?: No PFSH Medical History (Updated 07/27/24 @ 10:44 by William Albrecht NP, CERAMIC RESTORER-C) Tinnitus Neuropathy Back pain Health care maintenance Soft tissue swelling of knee joint Bilateral lower extremity edema Hyperlipidemia Jaw clicking Wears glasses Insulin dependent diabetes mellitus Arthritis Bladder disease Anemia High cholesterol Injury of head and neck Dietary restriction Difficulty swallowing Gastric reflux Non-smoker Leg cramps History of pain when walking History of edema History of echocardiogram History of stress test Hypertension Cardiology follow-up encounter Action tremor Overactive bladder Diabetic neuropathy Dermatitis Urinary frequency Urinary urgency Difficulty balancing Breast lump Osteoarthritis Diabetes type 1, controlled Skin cancer Pancreatitis Surgical History Hx of blepharoplasty History of tonsillectomy History of total knee arthroplasty History of cholecystectomy History of carpal tunnel release H/O: hysterectomy Family History Mother Asthma Liver disease Father CVA (cerebral vascular accident) Social History Smoking Status: Never smoker second hand exposure: No alcohol intake: never substance use type: does not use what type of physical activity do you participate in: walking frequency: daily HPI HPI Details: TASNEEM BATISTA, is a 79 F who presents to the office today for pink eye in right eye for 1 week, irritation starting in the left eye as of 2 days ago. Patient states right eye and left eye itch and painful. She has been using warm compress with some improvement. This worsened today. She saw her eye doctor and had no recommendation regarding possible pink eye. ROS Eyes Eyes: Positive for irritation (itches); No blurry vision, change in vision, double vision, discharge, vision loss, visual disturbances or eye pain Neuro Neurology: No visual disturbances Exam Eyes General: appearance normal, both eyes and all related structures Visual Melvin: normal visual melvin by confrontation Alignment and Position: alignment normal Periorbital: periorbital findings normal Eyelids: eyelids normal Conjunctivae: conjunctivae normal Sclera: sclerae normal Cornea: corneas normal Pupils: PERRL EOM: EOM intact bilaterally Direct ophthalmoscopy: normal light reflex Coding Level of Care Code Off vis,est,level 3 Diagnoses Eye irritation H57.89 Assessment and Plan Assessment and Plan (1) Eye irritation: Status: Acute Plan: The etiology is unclear. This is presumed to be viral related. She was asked to do steroid eyedrops for 2 days to see if this improves her symptoms. If no improvement or morning crusting/m atted eyes develop, she would then begin antibiotic eyedrops. Encouraged to get plenty of rest, drink lots of clear liquids, and use Tylenol or Ibuprofen (unless contraindicated) for fever and comfort. Patient also educated on other symptomatic management techniques. To be seen in 7-10 days if no improvement; sooner if worsening of symptoms.??? Patient advised of potential red flags and when appropriate to report to the ED.??? Patient verbalized understanding and agreement with all the above. Medications: New polymyxin B sulf-trimethoprim 10,000 unit- 1 mg/mL while awake; do not exceed 6 doses in 24 hours 1 - 2 drps ophthalmic (eye) .Q3-6H 10 days 10 mL 0RF prednisolone acetate 1% 1 drp ophthalmic (eye) TID 5 mL 0RF Clinical Quality Measures Falls Risk Screening/Assistive Devices H (more content not included)... Normal [facility] Basic Metabolic Profile (BMP )on 07-14-2024 BUN/CRE 32.6 RATIO High 10-20 [facility] Comment on above: Performed By: #### L 500.4100, L500.2500 #### [facility] [address] [place], [address] CA,Total 9.5 mg/dL Normal 8.5-10.1 [facility] Comment on above: Performed By: #### L 500.4100, L500.2500 #### [facility] [address] [place], [address] Chloride [Moles/Vol] 109 mmol/L High 98-107 [facility] Comment on above: Performed By: #### L 500.4100, L500.2500 #### [facility] [address] [place], [address] CO2 [Moles/Vol] 27.0 mmol/L Normal 21.0-32.0 [facility] Comment on above: Performed By: #### L 500.4100, L500.2500 #### [facility] [address] [place], [address] Creatinine [Mass/Vol] 0.95 mg/dL Normal 0.55-1.02 [facility] Comment on above: Result Comment: The validity of the calculated GFR GFRAA in patients over 70 years has not been determined. Clinical correlation is essential. Performed By: #### L 500.4100, L500.2500 #### [facility] [address] [place], [address] EST GFR - AA 73 mL/min Normal >60 [facility] Comment on above: Result Comment: Afri can Cambodian GFR Calc Performed By: #### L 500.4100, L500.2500 #### [facility] [address] [place], [address] GAP 6 Normal 5-15 [facility] Comment on above: Performed By: #### L 500.4100, L500.2500 #### [facility] [address] [place], [address] GFR/1.73 sq M.predicted among non-blacks MDRD (S/P/Bld) [Vol rate/Area] 60 mL/min/{1.73_m2} Normal >60 [facility] Comment on above: Result Comment: Non- GFR Calc Performed By: #### L 500.4100, L500.2500 #### [facility] [address] [place], [address] Glucose [Mass/Vol] 196 mg/dL High 74-106 [facility] Comment on above: Result Comment: Fast ing Glucose result greater than or equal to 126 mg/dL suggests DIABETES MELLITUS per A.D.A. criteria. Performed By: #### L 500.4100, L500.2500 #### [facility] [address] [place], [address] Potassium [Moles/Vol] 4.3 mmol/L Normal 3.5-5.1 [facility] Comment on above: Performed By: #### L 500.4100, L500.2500 #### [facility] [address] [place], [address] Sodium [Moles/Vol] 142 mmol/L Normal 136-145 [facility] Comment on above: Performed By: #### L 500.4100, L500.2500 #### [facility] [address] [place], [address] Urea nitrogen [Mass/Vol] 31 mg/dL High 7-18 [facility] Comment on above: Performed By: #### L 500.4100, L500.2500 #### [facility] [address] [place], [address] Internal Medicine Office Vis itomichele 07-14-2024 Internal Medicine Office Visit [facility] [address] [place], [place] [address] OFFICE VISIT Date of Service: 07/14/24 MR#: [id number] Acct: [id number] Name: TASNEEM BATISTA Rep #: [id number] : 1945 Provider: Dr. Good dee MD Age/Sex: 79/F Location: [facility] Status: Signed Intake Vital Signs 01/10/24 13:52 04/23/24 11:07 07/14/24 10:52 Height 5 ft 2 in 5 ft 2 in 5 ft 2 in Weight: 155 lb 155 lb BMI 28.3 28.3 BP 161/82 H 132/82 H Blood Pressure Location Lt brachial Lt brachial Position Sitting Sitting Respiration 14 Pulse 61 68 Pulse Source Monitor Monitor Temp 97.1 F L Temp Source Temporal Pulse Oximetry (%) 96 99 Oxygen Delivery Method room air room air Intake Visit Reasons: 6 M FU Chief Complaint: Follow-up chronic conditions 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: No Is patient in pain?: No Allergies codeine Allergy (Severe, Verified 07/14/24 10:45) Unknown Sulfa (Sulfonamide Antibiotics) Allergy (Severe, Verified 07/14/24 10:45) Unknown Penicillins Allergy (Mild, Verified 07/14/24 10:45) Rash Medications ???Medication ???Instructions ???Recorded ???Confirmed ???Type OneTouch Ultra Blue Test Strip #270 ea 10/07/18 07/14/24 Rx (blood sugar diagnostic) cetirizine 10 mg capsule (Zyrtec) 10 mg PO PRN PRN ALLERGIES 07/07/19 07/14/24 History hydrocortisone 2.5 % topical cream 1 applic topical BID PRN rash 10/25/21 07/14/24 Rx #28.35 grams pen needle, diabetic 31 gauge x #150 ea 12/08/21 07/14/24 Rx 5/16 (Easy Touch) oxybutynin chloride 10 mg 10 mg PO DAILY 03/14/22 07/14/24 History tablet,extended release 24 hr blood sugar diagnostic (OneTouch #100 ea 08/17/22 07/14/24 Rx Ultra Test strips) comp.stocking,thigh,l dixon,large #2 ea 03/16/23 07/14/24 Rx insulin lispro 100 unit/mL 10.5 unit (0.105 mL) subcut .tidcm 09/26/23 07/14/24 Rx subcutaneous half-unit pen #28.35 mL (Humalog Kenny KwikPen (U-100)) cholecalciferol (vitamin D3) 25 25 mcg PO DAILY 12/26/23 07/14/24 History mcg (1,000 unit) tablet insulin glargine 100 unit/mL (3 10 unit (0.1 mL) subcut QHS #9 mL 12/26/23 07/14/24 Rx mL) subcutaneous pen (Lantus Solostar U-100 Insulin) rosuvastatin 40 mg tablet 40 mg PO QHS #90 tabs 12/26/23 07/14/24 Rx compress.stocking,kne e,reg,lrg #2 ea 01/10/24 07/14/24 Rx cyclobenzaprine 10 mg tablet 10 mg PO TID PRN muscle spasm #90 01/10/24 07/14/24 Rx tabs famotidine 20 mg tablet 20 mg PO QHS #90 tabs 01/10/24 07/14/24 Rx omeprazole 40 mg capsule,delayed 40 mg PO DAILY #90 caps 01/10/24 07/14/24 Rx release flash glucose scanning reader #1 ea 01/14/24 07/14/24 Rx (FreeStyle Mook 2 [place]) losartan 50 mg tablet 50 mg PO DAILY #90 tabs 03/20/24 07/14/24 Rx calcium 600 mg (as carbonate)-vit 2 tab PO DAILY 04/23/24 07/14/24 History D3 20 mcg (800 unit) chewable tablet (Caltrate plus D) gabapentin 300 mg capsule 300 mg PO QHS #90 caps 04/28/24 07/14/24 Rx (Neurontin) Handicap Placard #1 ea 05/15/24 07/14/24 Rx Have you fallen in the past year?: Yes (09/2023) [facility] Medical History (Updated 07/14/24 @ 16:[address] Good Mcguire MD) Tinnitus Neuropathy Back pain Health care maintenance Soft tissue swelling of knee joint Bilateral lower extremity edema Hyperlipidemia Jaw clicking Wears glasses Insulin dependent diabetes mellitus Arthritis Bladder disease Anemia High cholesterol Injury of head and neck Dietary restriction Difficulty swallowing Gastric reflux Non-smoker Leg cramps History of pain when walking History of edema History of echocardiogram History of stress test Hypertension Cardiology follow-up encounter Action tremor Overactive bladder Diabetic neuropathy Dermatitis Urinary frequency Urinary urgency Difficulty balancing Breast lump Osteoarthritis Diabetes type 1, controlled Skin cancer Pancreatitis Surgical History Hx of blepharoplasty History of tonsillectomy History of total knee arthroplasty History of cholecystectomy History of carpal tunnel release H/O: hysterectomy Family History Mother Asthma Liver disease Father CVA (cerebral vascular accident) Social History Smoking Status: Never smoker second hand exposure: No alcohol intake: never substance use type: does not use what type of physical activity do you participate in: walking frequency: daily HPI HPI Chief Complaint: Follow-up chronic conditions Details: TASNEEM BATISTA, is a 79 F who presents to the office today for follow-up of her chronic medical conditions. No acute concerns at this time. Chronic history of tinnitus. More both (more content not included)... Normal [facility] Lipid Profileon 07-14-2024 Cholesterol [Mass/Vol] 130 mg/dL Normal 200 [facility] Comment on above: Result Comment: <200 mg/dL Desirable 200-240 mg/dL Borderline >240 mg/dL High Risk Performed By: #### L 500.4100, L500.2500 #### [facility] [address] [place], [address] Cholesterol in HDL [Mass/Vol] 79 mg/dL Normal [facility] Comment on above: Result Comment: The drugs N-Acetylcysteine and Metamizole may falsely depress this assay. Reference Range HDL <40 mg/dL Low HDL Cholesterol HDL >or= 60 mg/dL High HDL Cholesterol Performed By: #### L 500.4100, L500.2500 #### [facility] [address] [place], [address] Cholesterol in LDL [Mass/Vol] 40 mg/dL Normal 0-130 [facility] Comment on above: Performed By: #### L 500.4100, L500.2500 #### [facility] [address] [place], [address] Cholesterol in VLDL [Mass/Vol] 11 mg/dL Normal 5-40 [facility] Comment on above: Performed By: #### L 500.4100, L500.2500 #### [facility] [address] [place], [address] Triglyceride [Mass/Vol] 55 mg/dL Normal [facility] Comment on above: Result Comment: The drugs N-Acetylcysteine and Metamizole may falsely depress this assay. Serum Triglycerides Reference Interval Normal <150 mg/dL Borderline high 150 - 199 mg/dL High 200 - 499 mg/dL Very High > or = 500 mg/dL Performed By: #### L 500.4100, L500.2500 #### [facility] [address] [place], [address] PT D/C Summary (1)06-19- 024 PT D/C Summary (1) [facility] Physical Therapy [address] [place] [address] / REHABILITATION SERVICES DISCHARGE SUMMARY MR#: [id number] Acct: [id number] Name: TASNEEM BATISTA Rep #: [id number] : 1945 79 From: Javon Rhodes PT, ATC Referring Dr.: YULY Traylor Status: REG RCR Insurance: MEDICARE PART A B [facility] Discharge Summary D/C summary: It has been my pleasure to treat TASNEEM BATISTA referred by Dr. Kayla Traylor DPM, with the diagnosis of Gait Abnormality for a total of 25 visit(s). Discharge Date: Please see the following information for a summary of their discharge status. Subjective Subjective: I think I am ready for discharge. I only feel off balance when I am walking and turn my head Pain Bilateral Back: Pain Intensity (Out of 10): 2 R shoulder: Pain Intensity (Out of 10): 2 Overall Improvement % Improvement: 90 Objective Objective/Function: Pt is I with HEP TUG 8.9 sec Pt can perform sit to stand transfers with no UE FGA: Goals Goal 1:: Patient will be I with HEP and progression Goal Progress: Goal Met Goal 2:: Patient will sit to stand without UE A Goal Progress: Goal Met Goal 3:: Patient will improve her FGA by 5 points Goal Progress: Goal Met Goal 4:: Patient will improve TUG to under 10 seconds Goal Progress: Goal Met Goal 5:: Patient will report 80% improvement Goal Progress: Goal Met Plan Plan: Discharge to HEP D/C Information d/c sentence: If there are questions or concerns regarding this patient's physical therapy, please feel free to call me at [phone]. Thank you for the referral of this patient. Sincerely, Javon Rhodes, PT, ATC Balance/Gait/Function al tests Balance/Special Test Scores Functional Gait Assessment Score: 25 % Disability: 16.6700 Lower Extremity Functional Score: 48 TUG Test Time Seconds: 8.89 Tug Test: <10 sec.=free mobile 30 Second Chair Rise Test Seconds: 10 Improvement % Improvement: 90 06/19/24 1105 CC: YULY Traylor; Dr. Good Mcguire MD [facility] Signed Normal [facility] Re-Evaluation - PT (1)on Re-Evaluation - PT (1) [facility] Physical Therapy [facility] [address] [place] [address] / REEVALUATION / MEDICARE RECERTIFICATION PHYSICAL THERAPY MR#: [id number] Acct: [id number] Name: TASNEEM BATISTA Rep #: [id number] : 1945 79 From: Javon Rhodes PT, ATC Referring Dr.: YULY Traylor Status:REG RCR Insurance: MEDICARE PART A B [facility] Re-Evaluation Intro: Dr. Kayla Traylor, YULY, It has been my pleasure to treat TASNEEM BATISTA over the last 17 visits for Gait Abnormality. Please see the progress note below for an update on the physical therapy plan of care! Subjective Subjective: I have gotten stronger, but my balance is still bad Objective Objective/Function: Pt reports feeling 75% improvement at this time TU.67 sec FGA: Pt has made significant gains at this time Plan Plan Plan: 05/22/24- Continue 2 times per week for 4 more weeks to focus on dynamic balance activity Balance/Gait/Function al tests Balance/Special Test Scores Functional Gait Assessment Score: 19 % Disability: 36.6700 Lower Extremity Functional Score: 44 TUG Test Time Seconds: 9.84 Tug Test: <10 sec.=free mobile 30 Second Chair Rise Test Seconds: 14 Goals Goals Goal 1:: Patient will be I with HEP and progression Goal Time Frame: 4-6 Weeks Goal Progress: Goal Met Goal 2:: Patient will sit to stand without UE A Goal Time Frame: 4-6 Weeks Goal Progress: Goal Met Goal 3:: Patient will improve her FGA by 5 points Goal Time Frame: 4-6 Weeks Goal Progress: Progressing Goal 4:: Patient will improve TUG to under 10 seconds Goal Time Frame: 4-6 Weeks Goal Progress: Progressing Goal 5:: Patient will report 80% improvement Goal Time Frame: 4-6 Weeks Goal Progress: Progressing Anticipated Interventions Anticipated Interventions Patient/Client Instruction: Educate patient on: Benefits of Fitness Program Therapeutic Exercise to Include: Strength training, Endurance training, Balance training, Coordination, Agility training, Body mechanics, Postural training, Flexibilty training, Gait and locomotor training, Neuromotor development, Dynamic Lumbar Stabilization and Scapular Strength/Stabilizatio n Functional Training to Include: Gait training Re-Evaluation Ending Re-evaluation ending: Please do not hesitate to contact me at [phone] by phone or if you have questions or concerns regarding this new plan of care! Sincerely, Javon Rhodes, PT, ATC 05/22/24 1058 CC: DPTorsten Traylor; Dr. Good Mcguire MD [facility] Signed For Medicare only, by signing this I certify the plan of care. Physicians Signature Date Normal [facility] Laboratory - Hematology and Cell countson 09-26-2023 HbA1c (Bld) [Mass fraction] 7.5 % 4.2-6.3 [facility] CNPNon 09-20-2023 [facility] Telephone ([id number]) TASNEEM BATISTA ([id number]) 1945 F Date Time Provider Department 09/20/23 KASANDRA WONG4 During your visit today, we recorded the following information about you: Aren Guan, RN 09/20/2023 10:58 AM Signed Tasneem called and informed me that after a lot of contemplation, she has decided to not go through with the surgery. I am struggling to maintain my level blood sugars now, while I can eat, I am so worried what will happen when I am not able to eat. I offered to schedule her with our prosthodontist/educator/RD but Tasneem declined. I assured her that she is making the right decision if she truly feels she is not ready for the surgery. That makes me feel better. I truly trust Dr. Wong and your team, I just don't think this is right for me right now. I assured Tasneem she is welcome to call us if her situation changes. I told her I will cancel her upcoming appointments. She thanked me for being supportive. Aren Guan RN Allergies As of Date: 09/20/2023 Noted Allergy Reaction CONTRAST DYE 05/09/2011 14 - Other: See Comments Comments: Face flushing and redness PENICILLINS 08/17/2009 2 - Rash SULFA (SULFONAMIDE ANTIBIOTICS) 08/17/2009 2 - Rash VICODIN (HYDROCODONE-ACETAMIN OPHE*08/17/2009 5 - Intolerance Date Reviewed: 08/01/2023 Reviewed by: Kasandra Wong MD - Fully Assessed Reason for Visit: Future Appointment [256] Cmt: Patient cancelling surgery optimization. Prescriptions as of 09/20/2023 - calcium citrate/vitamin D3 (CITRACAL + D ORAL) Take by mouth once daily. - omeprazole (PRILOSEC) 40 mg capsule Take 40 mg by mouth once daily. - famotidine (PEPCID) 20 mg tablet Take 20 mg by mouth twice daily. - desipramine (NORPRAMIN) 50 mg tablet Take 50 mg by mouth once daily. - rosuvastatin (CRESTOR) 40 mg tablet Take 40 mg by mouth once daily. - losartan (COZAAR) 50 mg tablet Take 50 mg by mouth once daily. - oxybutynin ER (DITROPAN XL) 10 mg 24 hr tablet Take 10 mg by mouth once daily. - Insulin Lispro, Human, (HUMALOG KWIKPEN) 100 unit/mL inpn Use 5 units with each meal - ketoconazole (NIZORAL) 2 % shampoo Apply 1 application to affected area once daily as needed. - cetirizine (ZYRTEC) 10 mg tablet Take 1 tablet by mouth once daily. - insulin glargine (LANTUS) 100 unit/mL (3 mL) inpn 10-12 Units daily at bedtime. - gabapentin (NEURONTIN) 300 mg capsule Take 1 capsule by mouth daily at bedtime. - lisinopril (PRINIVIL) 10 mg tablet Take 1 tablet by mouth once daily. - blood sugar diagnostic (AnagearTOUCH ULTRA TEST) test strip Use as instructed. Tests blood sugars 5 times a day. Dx: 250.01. - atorvastatin (LIPITOR) 40 mg tablet Take 1 tablet by mouth once daily. - insulin needles, DISPOSABLE, (PEN NEEDLE) 31 gauge x 5/16 ndle Use one needle per dose. 4 per day. - Cholecalciferol, Vitamin D3, 1,000 unit cap Take 2 capsules by mouth once daily. - Lancets (ONE TOUCH DELICA) lancets Test blood sugar(s) 4 daily. Dx: 250.02. Insulin: Yes Problem List As Of Date 09/20/2023 Noted Resolved SPINAL STENOSIS-LUMBAR [M48.061] 01/31/2008 Palpitations [R00.2] 05/12/2010 02/03/2013 Type 1 diabetes mellitus [E10.9] 10/12/2011 11/09/2015 Hyperlipidemia with target LDL less than 100 [E*01/30/2013 PAT (paroxysmal atrial tachycardia) (HCC) [I47.*03/27/2014 Type 1 diabetes mellitus without complications *03/27/2014 11/09/2015 Tubular adenoma of colon [D12.6] 07/26/2015 Type 1 diabetes mellitus without complication (*11/09/2015 02/09/2016 Type 1 diabetes mellitus without complication, *02/09/2016 BCC (basal cell carcinoma of skin) [C44.91] 08/15/2016 Radiculopathy, cervical region [M54.12] 03/25/2018 Tendinopathy of rotator cuff, right [M67.911] 02/10/2022 Encounter Status:Closed by AREN GUAN on 09/20/23 [facility] Abril 08-09-2023 JANIE Telephone (AGGENS4) TASNEEM BATISTA ([id number]) 1945 F Date Time Provider Department 08/09/23 KASANDRA WONG4 During your visit today, we recorded the following information about you: Aren Guan, BELTRAN 08/09/2023 1:56 PM Signed Patient called today and informed me she [...] expect a call from Dr. Wong's staff. Aren Guan RN Allergies As of Date: 08/09/2023 Noted Allergy Reaction CONTRAST DYE 05/09/2011 14 - Other: See Comments Comments: Face flushing and redness PENICILLINS 08/17/2009 2 - Rash SULFA (SULFONAMIDE ANTIBIOTICS) 08/17/2009 2 - Rash VICODIN (HYDROCODONE-ACETAMIN OPHE*08/17/2009 5 - Intolerance Date Reviewed: 08/01/2023 Reviewed by: Kasandra Wong MD - Fully Assessed Reason for Visit: Future Appointment [256] Prescriptions as of 08/09/2023 - calcium citrate/vitamin D3 (CITRACAL + D ORAL) Take by mouth once daily. - omeprazole (PRILOSEC) 40 mg capsule Take 40 mg by mouth once daily. - famotidine (PEPCID) 20 mg tablet Take 20 mg by mouth twice daily. - desipramine (NORPRAMIN) 50 mg tablet Take 50 mg by mouth once daily. - rosuvastatin (CRESTOR) 40 mg tablet Take 40 mg by mouth once daily. - losartan (COZAAR) 50 mg tablet Take 50 mg by mouth once daily. - oxybutynin ER (DITROPAN XL) 10 mg 24 hr tablet Take 10 mg by mouth once daily. - Insulin Lispro, Human, (HUMALOG KWIKPEN) 100 unit/mL inpn Use 5 units with each meal - ketoconazole (NIZORAL) 2 % shampoo Apply 1 application to affected area once daily as needed. - cetirizine (ZYRTEC) 10 mg tablet Take 1 tablet by mouth once daily. - insulin glargine (LANTUS) 100 unit/mL (3 mL) inpn 10-12 Units daily at bedtime. - gabapentin (NEURONTIN) 300 mg capsule Take 1 capsule by mouth daily at bedtime. - lisinopril (PRINIVIL) 10 mg tablet Take 1 tablet by mouth once daily. - blood sugar diagnostic (AnagearTOUCH ULTRA TEST) test strip Use as instructed. Tests blood sugars 5 times a day. Dx: 250.01. - atorvastatin (LIPITOR) 40 mg tablet Take 1 tablet by mouth once daily. - insulin needles, DISPOSABLE, (PEN NEEDLE) 31 gauge x 5/16 ndle Use one needle per dose. 4 per day. - Cholecalciferol, Vitamin D3, 1,000 unit cap Take 2 capsules by mouth once daily. - Lancets (ONE TOUCH DELICA) lancets Test blood sugar(s) 4 daily. Dx: 250.02. Insulin: Yes Problem List As Of Date 08/09/2023 Noted Resolved SPINAL STENOSIS-LUMBAR [M48.061] 01/31/2008 Palpitations [R00.2] 05/12/2010 02/03/2013 Type 1 diabetes mellitus [E10.9] 10/12/2011 11/09/2015 Hyperlipidemia with target LDL less than 100 [E*01/30/2013 PAT (paroxysmal atrial tachycardia) (HCC) [I47.*03/27/2014 Type 1 diabetes mellitus without complications *03/27/2014 11/09/2015 Tubular adenoma of colon [D12.6] 07/26/2015 Type 1 diabetes mellitus without complication (*11/09/2015 02/09/2016 Type 1 diabetes mellitus without complication, *02/09/2016 BCC (basal cell carcinoma of skin) [C44.91] 08/15/2016 Radiculopathy, cervical region [M54.12] 03/25/2018 Tendinopathy of rotator cuff, right [M67.911] 02/10/2022 Encounter Status:Closed by AREN GUAN on 08/09/23 [facility] CNOVon 08-01-2023 CNOV Office Visit (AGGENS4) TASNEEM BATISTA ([id number]) 1945 F Date Time Provider Department 08/01/23 3:30 PM KASANDRA WONG AGGENS4 During your visit today, we recorded the following information about you: Pulse Blood pressure Weight Height 64/minute 175/89 68.5 kg 1.613 m Kasandra Wong MD 08/01/2023 3:57 PM Signed SURGICAL SERVICES HISTORY AND PHYSICAL EXAMINATION SERVICE DATE: 08/01/2023 SERVICE TIME: 3:15 PM PRIMARY CARE PHYSICIAN: Good Mcguire MD SUBJECTIVE CHIEF COMPLAINT: hernia HISTORY OF PRESENT ILLNESS: Ms. Batista is a 78 year old female with a PMH of anemia, type 2 DM with diabetic retinopathy (dx 11 yrs ago; kavya Mcdonald; A1c <7), HLD, paraesophageal hernia, hx of [...] TUBE OVARY 2000 TOTAL KNEE REPLACEMENT Left 2004 FAMILY HISTORY: FAMILY HISTORY Problem Relation Age of Onset Stroke Father COPD Mother nonsmoker. developed cirrhosis from steroids SOCIAL HISTORY: Social History Tobacco Use Smoking status: Never Smokeless tobacco: Never Vaping Use Vaping Use: Never used Substance Use Topics Alcohol use: No Drug use: No MEDICATIONS: Current Outpatient Medications Medication Sig calcium citrate/vitamin D3 (CITRACAL (more content not included)... Normal [facility] CNCOon 07-25-2023 CNCO Letter Text [facility] CNPNon 07-25-2023 JANIEN Telephone (AGGENS4) TASNEEM ABTISTA ([id number]) 1945 F Date Time Provider Department 07/25/23 KASANDRA WONG During your visit today, we recorded the following information about you: Aren Guan RN 07/25/2023 3:05 PM Signed I called patient to see if she had an appointment with her grade recorder in preparation for surgery. Patient stated she does not have a grade recorder, but her PCP did an EKG on her (available in [facility] and is normal). I asked her when [...] not been scheduled with surgery optimization clinic. Aren Guan RN Allergies As of Date: 07/25/2023 Noted Allergy Reaction CONTRAST DYE 05/09/2011 14 - Other: See Comments Comments: Face flushing and redness PENICILLINS 08/17/2009 2 - Rash SULFA (SULFONAMIDE ANTIBIOTICS) 08/17/2009 2 - Rash VICODIN (HYDROCODONE-ACETAMIN OPHE*08/17/2009 5 - Intolerance Date Reviewed: 04/13/2023 Reviewed by: Ebony Fortune RN - Fully Assessed Reason for Visit: Future Appointment [256] Prescriptions as of 07/25/2023 - calcium citrate/vitamin D3 (CITRACAL + D ORAL) Take by mouth once daily. - omeprazole (PRILOSEC) 40 mg capsule Take 40 mg by mouth once daily. - famotidine (PEPCID) 20 mg tablet Take 20 mg by mouth twice daily. - desipramine (NORPRAMIN) 50 mg tablet Take 50 mg by mouth once daily. - rosuvastatin (CRESTOR) 40 mg tablet Take 40 mg by mouth once daily. - losartan (COZAAR) 50 mg tablet Take 50 mg by mouth once daily. - oxybutynin ER (DITROPAN XL) 10 mg 24 hr tablet Take 10 mg by mouth once daily. - Insulin Lispro, Human, (HUMALOG KWIKPEN) 100 unit/mL inpn Use 5 units with each meal - ketoconazole (NIZORAL) 2 % shampoo Apply 1 application to affected area once daily as needed. - cetirizine (ZYRTEC) 10 mg tablet Take 1 tablet by mouth once daily. - insulin glargine (LANTUS) 100 unit/mL (3 mL) inpn 10-12 Units daily at bedtime. - gabapentin (NEURONTIN) 300 mg capsule Take 1 capsule by mouth daily at bedtime. - lisinopril (PRINIVIL) 10 mg tablet Take 1 tablet by mouth once daily. - blood sugar diagnostic (Room n HouseUCH ULTRA TEST) test strip Use as instructed. Tests blood sugars 5 times a day. Dx: 250.01. - atorvastatin (LIPITOR) 40 mg tablet Take 1 tablet by mouth once daily. - insulin needles, DISPOSABLE, (PEN NEEDLE) 31 gauge x 5/16 ndle Use one needle per dose. 4 per day. - Cholecalciferol, Vitamin D3, 1,000 unit cap Take 2 capsules by mouth once daily. - Lancets (ONE TOUCH DELICA) lancets Test blood sugar(s) 4 daily. Dx: 250.02. Insulin: Yes Problem List As Of Date 07/25/2023 Noted Resolved SPINAL STENOSIS-LUMBAR [M48.061] 01/31/2008 Palpitations [R00.2] 05/12/2010 02/03/2013 Type 1 diabetes mellitus [E10.9] 10/12/2011 11/09/2015 Hyperlipidemia with target LDL less than 100 [E*01/30/2013 PAT (paroxysmal atrial tachycardia) (HCC) [I47.*03/27/2014 Type 1 diabetes mellitus without complications *03/27/2014 11/09/2015 Tubular adenoma of colon [D12.6] 07/26/2015 Type 1 diabetes mellitus without complication (*11/09/2015 02/09/2016 Type 1 diabetes mellitus without complication, *02/09/2016 BCC (basal cell carcinoma of skin) [C44.91] 08/15/2016 Radiculopathy, cervical region [M54.12] 03/25/2018 Tendinopathy of rotator cuff, right [M67.911] 02/10/2022 Encounter Status:Closed by AREN GUAN on 07/25/23 [facility] No Panel InformationOrdered By: Nisreen Robles on 07-18-2023 Urine Microalbumin/Creatinin e Ratio 50.7 mg/g CRE <30 [facility] Thin prep Papanicolaou smear with manual screeningOrdered By: Nisreen Robles on 07-18-2023 Thin prep Papanicolaou smear with manual screening 32.0 mg/L NO RANGE EST. [facility] Urine creatinine measurement (mass/volume)Ordered By: Nisreen Robles on 07-18-2023 Creatinine (U) [Mass/Vol] 63.10 mg/dL NO RANGE EST. [facility] Basophil percentageOrdered B y: Nisreen Robles on 07-16-2023 Bilirubin [Mass/Vol] 0.40 mg/dL 0.20-1.00 [facility] Comment on above: For patients on eltr ombopag therapy, use of Dimension [place] TBIL is not recommended. Chloride [Moles/Vol] 108 mmol/L 98-107 [facility] Cholesterol [Mass/Vol] 138 mg/dL <200 [facility] Comment on above: <200 mg/dL Desirable 200-240 mg/dL Borderline >240 mg/dL High Risk Glucose [Mass/Vol] 152 mg/dL 74-106 [facility] Comment on above: Fasting Glucose resu lt greater than or equal to 126 mg/dL suggests DIABETES MELLITUS per A.D.A. criteria. Potassium [Moles/Vol] 4.4 mmol/L 3.5-5.1 [facility] Protein [Mass/Vol] 6.7 g/dL 6.4-8.2 [facility] Sodium [Moles/Vol] 142 mmol/L 136-145 [facility] Triglyceride [Mass/Vol] 40 mg/dL <199 [facility] Comment on above: The drugs N-Acetylcy steine and Metamizole may falsely depress this assay.Serum Triglycerides Reference Interval Normal <150 mg/dL Borderline high 150 - 199 mg/dL High 200 - 499 mg/dL Very High > or = 500 mg/dL Laboratory - Chemistry and C hemistry - challengeOrdered By: Nisreen Robles on 07-16-2023 ALP [Catalytic activity/Vol] 55 U/L 45-117 [facility] ALT [Catalytic activity/Vol] 19 U/L 13-56 [facility] CO2 [Moles/Vol] 26.0 mmol/L 21.0-32.0 [facility] Globulin (S) [Mass/Vol] 3.2 g/dL 2.2-4.2 [facility] Urea nitrogen/Creatinine [Mass ratio] 31.6 mg/mg 10-20 [facility] No Panel InformationOrdered By: Nisreen Robles on 07-16-2023 Estimated GFR (MDRD) Amer 59 mL/min >60 [facility] Comment on above: GFR Calc Estimated GFR (MDRD) Non-Af Amer 49 mL/min >60 [facility] Comment on above: Non- GFR Calc Thyroid Stimulating Hormone (TSH) 2.72 uIU/mL 0.358-3.74 [facility] Vitamin D 25-Hydroxy 67.2 ng/mL [facility] Comment on above: Vitamin D 25(OH) Sta tus Range Deficiency <20 ng/mL (50nmol/L) Insufficiency 20 - 30 ng/mL (50 - 75 nmol/L) Sufficiency 30 - 100 ng/mL (75 - 250 nmol/L) Toxicity >100 ng/mL (>250 nmol/L) Serum or plasma albumin jarad urement (mass/volume)Ordered By: Nisreen Robles on 07-16-2023 Albumin [Mass/Vol] 3.5 g/dL 3.2-5.0 [facility] Serum or plasma albumin/glob ulin mass ratioOrdered By: Nisreen Robles on 07-16-2023 Albumin/Globulin [Mass ratio] 1.1 {ratio} 0.9-2.4 [facility] Serum or plasma calcium jarad urement (mass/volume)Ordered By: Nisreen Robles on 07-16-2023 Calcium [Mass/Vol] 9.1 mg/dL 8.5-10.1 [facility] Serum or plasma cholesterol in HDL measurement (mass/volume)Ordered By: Nisreen Robles on 07-16-2023 Cholesterol in HDL [Mass/Vol] 82 mg/dL >40 [facility] Comment on above: The drugs N-Acetylcy steine and Metamizole may falsely depress this assay. Reference Range HDL <40 mg/dL Low HDL Cholesterol HDL >or= 60 mg/dL High HDL Cholesterol Serum or plasma cholesterol in VLDL measurement (mass/volume)Ordered By: Nisreen Robles on 07-16-2023 Cholesterol in VLDL [Mass/Vol] 8 mg/dL 5-40 [facility] Serum or plasma creatinine m easurement (mass/volume)Ordered By: Nisreen Robles on 07-16-2023 Creatinine [Mass/Vol] 1.14 mg/dL 0.55-1.02 [facility] Comment on above: The validity of the calculated GFR & GFRAA in patients over 70 years has not been determined. Clinical correlation is essential. Serum or plasma low density lipoprotein (LDL) cholesterol measurement (mass/volume)Ordered By: Nisreen Robles on 07-16-2023 Cholesterol in LDL [Mass/Vol] 48 mg/dL 0-130 [facility] Serum or plasma urea nitroge n measurement (mass/volume)Ordered By: Nisreen Robles on 07-16-2023 Urea nitrogen [Mass/Vol] 36 mg/dL 7-18 [facility] Thin prep Papanicolaou smear with manual screeningOrdered By: Nisreen Robles on 07-16-2023 Thin prep Papanicolaou smear with manual screening 20 U/L 15-37 [facility] Thin prep Papanicolaou smear with manual screening 8 5-15 [facility] Laboratory - Hematology and Cell countson 06-25-2023 HbA1c (Bld) [Mass fraction] 7.1 % 4.2-6.3 [facility] XR UPPER GI DOUBLE CONTRAST/ AIRon 06-11-2023 XR UPPER GI DOUBLE CONTRAST/AIR * * *Final Report* * * DATE OF EXAM: Jun 11 2023 9:02AM MDX [id number] - XR UPPER GI DOUBLE CONTRAST/AIR / PROCEDURE REASON: R13.19-Esophageal dysphagia * * * * Physician Interpretation * * * * EXAMINATION: XR UPPER GI DOUBLE CONTRAST/AIR HISTORY: Esophageal dysphagia, hiatal hernia TECHNIQUE: A biphasic examination of the esophagus was performed utilizing effervescent granules (E-Z-Gas II - 4 grams), high density barium, and low density barium. Contrast: Oral: 65 ml of EZHD Oral: 100 ml of EZPAQUE Oral: 1 13 mm barium tablet EZ disc Fluoroscopy radiation summary: Fluoroscopy time: 2:42 (min:sec). Air kerma: 25.6 mGy. RESULT: Caliber: Normal. Stricture, Ring, or Web: None. Motility: Dysmotility. 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 Hiatal Hernia: Large, fixed type III hiatal hernia Gastroesophageal Reflux: Small volume spontaneous reflux to the level of the thoracic inlet, slowly clearing (>30 seconds). Gastric Cardia: Normal. Barium Tablet: Impeded at the esophagogastric junction despite multiple additional sips of water and thin barium, likely related to tortuosity from large hernia. Other Findings: None. IMPRESSION: Large, fixed type III hiatal hernia. Small volume, slow clearing spontaneous gastroesophageal reflux to the level of the thoracic inlet. Mild esophageal dysmotility. 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 Denies nasal surgeries or injuries. After confirmation of potential allergies, a topical analgesic was used to numb the left nares followed by the trans-nasal insertion of a High Resolution Manometry catheter. Pressure bands of the UES and LES were observed on the color contour. The patient was instructed to take a deep breath to verify placement of catheter, diaphragmatic pinch noted on inspiration. The patient was assisted to left lateral position and the catheter stabilized. The patient was encouraged to relax while acclimating to the catheter for approximately 5 minutes. A 30 second baseline pressure was obtained to identify the UES and LES followed by a series of ten wet swallows, using 5mL of room temperature normal saline to assess esophageal motility. At the conclusion of the procedure the catheter was removed. The patient tolerated the procedure well. No heme noted when catheter removed. Normal [facility] 04-12-2023 [facility] Telephone (AGGENS4) TASNEEM BATISTA ([id number]) 1945 F Date Time Provider Department 04/12/23 KASANDRA WONG AGGENS4 During your visit today, we recorded the following information about you: Carissa Aponte MA 04/12/2023 10:34 AM Signed Patient called the office yesterday stating she was told that she is not able to get manometry and UGI done the same day. We attempted to get more information from the staff that called the patient however we did not receive a response. It was decided that we would reschedule UGI. Patient prefers to have testing done at [facility]. UGI scheduled for first available which was 06/11/2023 @ 8:30 am. Follow up with Dr. Wong had to be moved to 06/27/2023. Appointment reminders mailed to the patient. Carissa Aponte MA Allergies As of Date: 04/12/2023 Noted Allergy Reaction CONTRAST DYE 05/09/2011 14 - Other: See Comments Comments: Face flushing and redness PENICILLINS 08/17/2009 2 - Rash SULFA (SULFONAMIDE ANTIBIOTICS) 08/17/2009 2 - Rash VICODIN (HYDROCODONE-ACETAMIN OPHE*08/17/2009 5 - Intolerance Date Reviewed: 04/06/2023 Reviewed by: Liset Costello RN - Fully Assessed Reason for Visit: Appointment [186] Cmt: UGI Prescriptions as of 04/12/2023 - calcium citrate/vitamin D3 (CITRACAL + D ORAL) Take by mouth once daily. - omeprazole (PRILOSEC) 40 mg capsule Take 40 mg by mouth once daily. - famotidine (PEPCID) 20 mg tablet Take 20 mg by mouth twice daily. - desipramine (NORPRAMIN) 50 mg tablet Take 50 mg by mouth once daily. - rosuvastatin (CRESTOR) 40 mg tablet Take 40 mg by mouth once daily. - losartan (COZAAR) 50 mg tablet Take 50 mg by mouth once daily. - oxybutynin ER (DITROPAN XL) 10 mg 24 hr tablet Take 10 mg by mouth once daily. - Insulin Lispro, Human, (HUMALOG KWIKPEN) 100 unit/mL inpn Use 5 units with each meal - ketoconazole (NIZORAL) 2 % shampoo Apply 1 application to affected area once daily as needed. - cetirizine (ZYRTEC) 10 mg tablet Take 1 tablet by mouth once daily. - insulin glargine (LANTUS) 100 unit/mL (3 mL) inpn 10-12 Units daily at bedtime. - gabapentin (NEURONTIN) 300 mg capsule Take 1 capsule by mouth daily at bedtime. - lisinopril (PRINIVIL) 10 mg tablet Take 1 tablet by mouth once daily. - blood sugar diagnostic (GPNX ULTRA TEST) test strip Use as instructed. Tests blood sugars 5 times a day. Dx: 250.01. - atorvastatin (LIPITOR) 40 mg tablet Take 1 tablet by mouth once daily. - insulin needles, DISPOSABLE, (PEN NEEDLE) 31 gauge x 5/16 ndle Use one needle per dose. 4 per day. - Cholecalciferol, Vitamin D3, 1,000 unit cap Take 2 capsules by mouth once daily. - Lancets (ONE TOUCH DELICA) lancets Test blood sugar(s) 4 daily. Dx: 250.02. Insulin: Yes Problem List As Of Date 04/12/2023 Noted Resolved SPINAL STENOSIS-LUMBAR [M48.061] 01/31/2008 Palpitations [R00.2] 05/12/2010 02/03/2013 Type 1 diabetes mellitus [E10.9] 10/12/2011 11/09/2015 Hyperlipidemia with target LDL less than 100 [E*01/30/2013 PAT (paroxysmal atrial tachycardia) (HCC) [I47.*03/27/2014 Type 1 diabetes mellitus without complications *03/27/2014 11/09/2015 Tubular adenoma of colon [D12.6] 07/26/2015 Type 1 diabetes mellitus without complication (*11/09/2015 02/09/2016 Type 1 diabetes mellitus without complication, *02/09/2016 BCC (basal cell carcinoma of skin) [C44.91] 08/15/2016 Radiculopathy, cervical region [M54.12] 03/25/2018 Tendinopathy of rotator cuff, right [M67.911] 02/10/2022 Encounter Status:Closed by CARISSA APONTE on 04/12/23 [facility] C[facility] Tele[facility] (AGGENS4) TASNEEM BATISTA ([id number]) 1945 F Date Time Provider Department 03/30/23 KASANDRA WONG4 During your visit today, we recorded the following information about you: Aren Guan RN 03/30/2023 11:08 AM Signed Patient called with some questions about the surgery. She began to cry and said she is concerned that will be incapacitated for weeks. Patient lives alone and has no children or family and her friends have reassured her they will help. Patient voiced that she is concerned that she will end up in a group home, but I don't want to regret doing the surgery if it will make things better. I assured her that her thoughts and concerns are perfectly normal and any decision about any surgery should not be made in haste or taken lightly. I assured her that she will be able to do her ADLs after surgery and her physical activities are limited for a few weeks for healing purposes. Patient agreed to complete her testing and come to her follow up appointment on 05/03/23 so we can discuss the pros and cons of surgery with Dr. Wong. I assured her she does not need to make a decision that day about surgery and she will have time to evaluate her options. Patient thanked me for understanding. Aren Guan RN Allergies As of Date: 03/30/2023 Noted Allergy Reaction CONTRAST DYE 05/09/2011 14 - Other: See Comments Comments: Face flushing and redness PENICILLINS 08/17/2009 2 - Rash SULFA (SULFONAMIDE ANTIBIOTICS) 08/17/2009 2 - Rash VICODIN (HYDROCODONE-ACETAMIN OPHE*08/17/2009 5 - Intolerance Date Reviewed: 03/14/2023 Reviewed by: Kasandra Wong MD - Fully Assessed Reason for Visit: Patient Question [4877] Prescriptions as of 03/30/2023 - calcium citrate/vitamin D3 (CITRACAL + D ORAL) Take by mouth once daily. - omeprazole (PRILOSEC) 40 mg capsule Take 40 mg by mouth once daily. - famotidine (PEPCID) 20 mg tablet Take 20 mg by mouth twice daily. - desipramine (NORPRAMIN) 50 mg tablet Take 50 mg by mouth once daily. - rosuvastatin (CRESTOR) 40 mg tablet Take 40 mg by mouth once daily. - losartan (COZAAR) 50 mg tablet Take 50 mg by mouth once daily. - oxybutynin ER (DITROPAN XL) 10 mg 24 hr tablet Take 10 mg by mouth once daily. - Insulin Lispro, Human, (HUMALOG KWIKPEN) 100 unit/mL inpn Use 5 units with each meal - ketoconazole (NIZORAL) 2 % shampoo Apply 1 application to affected area once daily as needed. - cetirizine (ZYRTEC) 10 mg tablet Take 1 tablet by mouth once daily. - insulin glargine (LANTUS) 100 unit/mL (3 mL) inpn 10-12 Units daily at bedtime. - gabapentin (NEURONTIN) 300 mg capsule Take 1 capsule by mouth daily at bedtime. - lisinopril (PRINIVIL) 10 mg tablet Take 1 tablet by mouth once daily. - blood sugar diagnostic (GPNX ULTRA TEST) test strip Use as instructed. Tests blood sugars 5 times a day. Dx: 250.01. - atorvastatin (LIPITOR) 40 mg tablet Take 1 tablet by mouth once daily. - insulin needles, DISPOSABLE, (PEN NEEDLE) 31 gauge x 5/16 ndle Use one needle per dose. 4 per day. - Cholecalciferol, Vitamin D3, 1,000 unit cap Take 2 capsules by mouth once daily. - Lancets (ONE TOUCH DELICA) lancets Test blood sugar(s) 4 daily. Dx: 250.02. Insulin: Yes Problem List As Of Date 03/30/2023 Noted Resolved SPINAL STENOSIS-LUMBAR [M48.061] 01/31/2008 Palpitations [R00.2] 05/12/2010 02/03/2013 Type 1 diabetes mellitus [E10.9] 10/12/2011 11/09/2015 Hyperlipidemia with target LDL less than 100 [E*01/30/2013 PAT (paroxysmal atrial tachycardia) (HCC) [I47.*03/27/2014 Type 1 diabetes mellitus without complications *03/27/2014 11/09/2015 Tubular adenoma of colon [D12.6] 07/26/2015 Type 1 diabetes mellitus without complication (*11/09/2015 02/09/2016 Type 1 diabetes mellitus without complication, *02/09/2016 BCC (basal cell carcinoma of skin) [C44.91] 08/15/2016 Radiculopathy, cervical region [M54.12] 03/25/2018 Tendinopathy of rotator cuff, right [M67.911] 02/10/2022 Encounter Status:Closed by AREN GUAN on 7/28/23 Normal [facility] - Hematology and Cell countson 03-21-2023 HbA1c (Bld) [Mass fraction] 6.8 % 4.2-6.3 [facility] Basophil percentageOrdered B y: Good Mcguire on 03-16-2023 Bilirubin [Mass/Vol] 0.50 mg/dL 0.20-1.00 [facility] Comment on above: For patients on eltr ombopag therapy, use of Dimension [place] TBIL is not recommended. Chloride [Moles/Vol] 109 mmol/L 98-107 [facility] Glucose [Mass/Vol] 135 mg/dL 74-106 [facility] Comment on above: Fasting Glucose resu lt greater than or equal to 126 mg/dL suggests DIABETES MELLITUS per A.D.A. criteria. Potassium [Moles/Vol] 4.5 mmol/L 3.5-5.1 [facility] Protein [Mass/Vol] 6.9 g/dL 6.4-8.2 [facility] Sodium [Moles/Vol] 141 mmol/L 136-145 [facility] - Chemistry and C hemistry - challengeOrdered By: Good Mcguire on 03-16-2023 ALP [Catalytic activity/Vol] 61 U/L 45-117 [facility] ALT [Catalytic activity/Vol] 22 U/L 13-56 [facility] CO2 [Moles/Vol] 27.0 mmol/L 21.0-32.0 [facility] Globulin (S) [Mass/Vol] 3.4 g/dL 2.2-4.2 [facility] Natriuretic peptide B (Bld) [Mass/Vol] 81.8 pg/mL 0-100 [facility] Urea nitrogen/Creatinine [Mass ratio] 28.3 mg/mg 10-20 [facility] No Panel InformationOrdered By: Good Mcguire on 03-16-2023 Estimated GFR (MDRD) Amer 64 mL/min >60 [facility] Comment on above: GFR Calc Estimated GFR (MDRD) Non-Af Amer 53 mL/min >60 [facility] Comment on above: Non- GFR Calc Serum or plasma albumin jarad urement (mass/volume)Ordered By: Good Mcguire on 03-16-2023 Albumin [Mass/Vol] 3.5 g/dL 3.2-5.0 [facility] Serum or plasma albumin/glob ulin mass ratioOrdered By: Good Mcguire on 03-16-2023 Albumin/Globulin [Mass ratio] 1.0 {ratio} 0.9-2.4 [facility] Serum or plasma calcium jarad urement (mass/volume)Ordered By: Good Mcguire on 03-16-2023 Calcium [Mass/Vol] 9.4 mg/dL 8.5-10.1 [facility] Serum or plasma creatinine m easurement (mass/volume)Ordered By: Good Mcguire on 03-16-2023 Creatinine [Mass/Vol] 1.06 mg/dL 0.55-1.02 [facility] Comment on above: The validity of the calculated GFR & GFRAA in patients over 70 years has not been determined. Clinical correlation is essential. Serum or plasma urea nitroge n measurement (mass/volume)Ordered By: Good Mcguire on 03-16-2023 Urea nitrogen [Mass/Vol] 30 mg/dL 7-18 [facility] Thin prep Papanicolaou smear with manual screeningOrdered By: Good Mcguire on 03-16-2023 Thin prep Papanicolaou smear with manual screening 31 U/L 15-37 [facility] Thin prep Papanicolaou smear with manual screening 5 5-15 [facility] Basic metabolic 2000 panelon 03-14-2023 Anion gap [Moles/Vol] 10 mmol/L Normal 9-18 [facility] Comment on above: Order Comment: Speci men Type: BLOOD SPECIMENOrdering Facility: [facility] Address: [address] [place] [id number] Performed By: #### 2 4321-2 ####[facility] LABORATORYCLIA [id number] [place] [address] [place] Calcium [Mass/Vol] 10.0 mg/dL Normal 8.5-10.2 [facility] Comment on above: Order Comment: Speci men Type: BLOOD SPECIMENOrdering Facility: [facility] Address: [address] [address] Performed By: #### 2 4321-2 ####[facility] LABORATORYCLIA [id number] [address] [place] Chloride [Moles/Vol] 105 mmol/L Normal 97-105 [facility] Comment on above: Order Comment: Speci men Type: BLOOD SPECIMENOrdering Facility: [facility] Address: [address] [place] [address] Performed By: #### 2 4321-2 ####[facility] LABORATORYCLIA [id number] [address] [place] CO2 [Moles/Vol] 26 mmol/L Normal 22-30 [facility] Comment on above: Order Comment: Speci men Type: BLOOD SPECIMENOrdering Facility: [facility] Address: [address] [place] [address] Performed By: #### 2 4321-2 ####[facility] LABORATORYCLIA [id number] [address] [place] Creatinine [Mass/Vol] 1.02 mg/dL High 0.58-0.96 [facility] Comment on above: Order Comment: Speci men Type: BLOOD SPECIMENOrdering Facility: [facility] Address: [address] [place] [address] Performed By: #### 2 4321-2 ####[facility] LABORATORYCLIA [id number] [address] ESTIMATED GLOMERULAR FILTRATION RATE 56 mL/min/1.73m??? Low >=60 [facility] Comment on above: Order Comment: Speci men Type: BLOOD SPECIMENOrdering Facility: [facility] Address: [address] [place] [address] Result Comment: Lilibeth mated Glomerular Filtration Rate (eGFR) is calculated using the 2020 CKD-EPI creatinine equation. This equation utilizes serum creatinine, sex, and age as parameters. The creatinine assay has traceable calibration to isotope dilution-mass spectrometry. Refer to KDIGO guidelines for clinical interpretation. In patients with unstable renal function, e.g. those with acute kidney injury, the eGFR may not accurately reflect actual GFR. Performed By: #### 2 4321-2 ####[facility] LABORATORYCLIA [id number] [place] [address] [place] Glucose [Mass/Vol] 161 mg/dL High 74-99 [facility] Comment on above: Order Comment: Rory abdul Type: BLOOD SPECIMENOrdering Facility: [facility] Address: [address] [place] [address] Result Comment: The [place] Diabetes Association (ADA) provides guidance for cutoff values for fasting glucose and random glucose. The ADA defines fasting as no caloric intake for at least 8 hours. Fasting plasma glucose results between 100 to 125 mg/dL indicate increased risk for diabetes (prediabetes). Fasting plasma glucose results greater than or equal to 126 mg/dL meet the criteria for diagnosis of diabetes. In the absence of unequivocal hyperglycemia, results should be confirmed by repeat testing. In a patient with classic symptoms of hyperglycemia or hyperglycemic crisis, random plasma glucose results greater than or equal to 200 mg/dL meet the criteria for diagnosis of diabetes. Reference: Standards of Medical Care in Diabetes 2016, [place] [employer] Association. Diabetes Care. 2016.39(Suppl 1). Performed By: #### 2 4321-2 ####[facility] LABORATORYCLIA [id number] [place] [address] [place] Potassium [Moles/Vol] 4.8 mmol/L Normal 3.7-5.1 [facility] Comment on above: Order Comment: Rory abdul Type: BLOOD SPECIMENOrdering Facility: [facility] Address: [address] [address] Performed By: #### 2 4321-2 ####[facility] LABORATORYCLIA [id number] [place] [address] [place] Sodium [Moles/Vol] 141 mmol/L Normal 136-144 [facility] Comment on above: Order Comment: Rory abdul Type: BLOOD SPECIMENOrdering Facility: [facility] Address: [address] [address] Performed By: #### 2 4321-2 ####[facility] LABORATORYCLIA [id number] [place] [address] [place] Urea nitrogen [Mass/Vol] 29 mg/dL High 7-21 [facility] Comment on above: Order Comment: Speci men Type: BLOOD SPECIMENOrdering Facility: [facility] Address: [address] [address] Performed By: #### 2 4321-2 ####[facility] LABORATORYCLIA [id number] [place] [address] [place] Anion gap [Moles/Vol] 10 mmol/L 9 - 18 mmol/L [facility] Calcium [Mass/Vol] 10.0 mg/dL 8.5 - 10. 2 mg/dL [facility] Chloride [Moles/Vol] 105 mmol/L 97 - 10 5 mmol/L [facility] CO2 [Moles/Vol] 26 mmol/L 22 - 30 mmol/L [facility] Creatinine [Mass/Vol] 1.02 mg/dL High 0.58 - 0.96 mg/dL [facility] Estimated Glomerular Filtration Rate 56 mL/min/1.73m Low >=60 mL/min/1.73 m [facility] Glucose [Mass/Vol] 161 mg/dL High 74 - 99 mg/dL [facility] Potassium [Moles/Vol] 4.8 mmol/L 3.7 - 5.1 mmol/L [facility] Sodium [Moles/Vol] 141 mmol/L 136 - 144 mmol/L [facility] Urea nitrogen [Mass/Vol] 29 mg/dL High 7 - 21 mg/dL [facility] CBC W Auto Differential pane l (Bld)on 03-14-2023 Basophils (Bld) [#/Vol] 0.06 10*3/uL Normal <0.11 [facility] Comment on above: Order Comment: Speci men Type: BLOOD SPECIMEN [facility] Address: [address] [address] Performed By: #### 5 7021-8 #### [facility] CLIA [id number] [address] [place] Basophils/100 WBC (Bld) 0.9 % Normal [facility] Comment on above: Order Comment: Speci men Type: BLOOD SPECIMEN [facility] Address: [address] [place] [address] Performed By: #### 5 7021-8 #### [facility] CLIA [id number] [address] Differential cell count method Nom (Bld) Auto Normal [facility] Comment on above: Order Comment: Speci men Type: BLOOD SPECIMEN [facility] Address: [address] [place] [address] Performed By: #### 5 7021-8 #### [facility] CLIA [id number] [address] Eosinophils (Bld) [#/Vol] 0.15 10*3/uL Normal <0.46 [facility] Comment on above: Order Comment: Speci men Type: BLOOD SPECIMEN [facility] Address: [address] [place] [address] Performed By: #### 5 7021-8 #### [facility] CLIA [id number] [address] Eosinophils/100 WBC (Bld) 2.2 % Normal [facility] Comment on above: Order Comment: Speci men Type: BLOOD SPECIMEN [facility] Address: [address] [place] [address] Performed By: #### 5 7021-8 #### [facility] CLIA [id number] [address] Erythrocyte distribution width (RBC) [Ratio] 15.3 % High 11.5-15.0 [facility] Comment on above: Order Comment: Speci men Type: BLOOD SPECIMEN [facility] Address: [address] [place] [address] Performed By: #### 5 7021-8 #### [facility] CLIA [id number] [address] Hematocrit (Bld) [Volume fraction] 39.6 % Normal 36.0-46.0 [facility] Comment on above: Order Comment: Speci men Type: BLOOD SPECIMEN [facility] Address: [address] [place] [address] Performed By: #### 5 7021-8 #### [facility] CLIA [id number] [address] [place] Hemoglobin (Bld) [Mass/Vol] 12.6 g/dL Normal 11.5-15.5 [facility] Comment on above: Order Comment: Speci men Type: BLOOD SPECIMEN [facility] Address: [address] [address] Performed By: #### 5 7021-8 #### [facility] CLIA [id number] [address] [place] Immature granulocytes (Bld) [#/Vol] 0.03 10*3/uL Normal <0.10 [facility] Comment on above: Order Comment: Speci men Type: BLOOD SPECIMEN [facility] Address: [address] [place] [address] Performed By: #### 5 7021-8 #### [facility] CLIA [id number] [address] [place] Immature granulocytes/100 WBC (Bld) 0.4 % Normal [facility] Comment on above: Order Comment: Speci men Type: BLOOD SPECIMEN [facility] Address: [address] [address] Performed By: #### 5 7021-8 #### [facility] CLIA [id number] [address] [place] Lymphocytes (Bld) [#/Vol] 1.71 10*3/uL Normal 1.00-4.00 [facility] Comment on above: Order Comment: Speci men Type: BLOOD SPECIMEN [facility] Address: [address] [address] Performed By: #### 5 7021-8 #### [facility] CLIA [id number] [address] Lymphocytes/100 WBC (Bld) 25.5 % Normal [facility] Comment on above: Order Comment: Speci men Type: BLOOD SPECIMEN [facility] Address: [address] [place] [address] Performed By: #### 5 7021-8 #### [facility] CLIA [id number] [address] MCH (RBC) [Entitic mass] 28.1 pg Normal 26.0-34.0 [facility] Comment on above: Order Comment: Speci men Type: BLOOD SPECIMEN [facility] Address: [address] [place] [address] Performed By: #### 5 7021-8 #### [facility] CLIA [id number] [address] MCHC (RBC) [Mass/Vol] 31.8 g/dL Normal 30.5-36.0 [facility] Comment on above: Order Comment: Speci men Type: BLOOD SPECIMEN [facility] Address: [address] [place] [address] Performed By: #### 5 7021-8 #### [facility] CLIA [id number] [address] MCV (RBC) [Entitic vol] 88.4 fL Normal 80.0-100.0 [facility] Comment on above: Order Comment: Speci men Type: BLOOD SPECIMEN [facility] Address: [address] [place] [address] Performed By: #### 5 7021-8 #### [facility] CLIA [id number] [address] Monocytes (Bld) [#/Vol] 0.55 10*3/uL Normal <0.87 [facility] Comment on above: Order Comment: Speci men Type: BLOOD SPECIMEN [facility] Address: [address] [place] [address] Performed By: #### 5 7021-8 #### [facility] CLIA [id number] [address] [place] Monocytes/100 WBC (Bld) 8.2 % Normal [facility] Comment on above: Order Comment: Speci men Type: BLOOD SPECIMEN [facility] Address: [address] [address] Performed By: #### 5 7021-8 #### [facility] CLIA [id number] [address] [place] Neutrophils (Bld) [#/Vol] 4.21 10*3/uL Normal 1.45-7.50 [facility] Comment on above: Order Comment: Speci men Type: BLOOD SPECIMEN [facility] Address: [address] [place] [address] Performed By: #### 5 7021-8 #### [facility] CLIA [id number] [address] [facility] Neutrophils/100 WBC (Bld) 62.8 % Normal [facility] Comment on above: Order Comment: Speci men Type: BLOOD SPECIMEN [facility] Address: [address] [place] [address] Performed By: #### 5 7021-8 #### [facility] CLIA [id number] [address] [place] Nucleated RBC (Bld) [#/Vol] 10*3/uL Normal <0.01 [facility] Comment on above: Order Comment: Speci men Type: BLOOD SPECIMEN [facility] Address: [address] [place] [address] Performed By: #### 5 7021-8 #### [facility] CLIA [id number] [address] [place] Nucleated RBC/100 WBC (Bld) [Ratio] 0.0 /100 WBC Normal [facility] Comment on above: Order Comment: Speci men Type: BLOOD SPECIMEN [facility] Address: [address] [address] Performed By: #### 5 7021-8 #### [facility] CLIA [id number] [address] Platelet mean volume (Bld) [Entitic vol] 10.4 fL Normal 9.0-12.7 [facility] Comment on above: Order Comment: Speci men Type: BLOOD SPECIMEN [facility] Address: [address] [address] Performed By: #### 5 7021-8 #### [facility] CLIA [id number] [address] Platelets (Bld) [#/Vol] 164 10*3/uL Normal 150-400 [facility] Comment on above: Order Comment: Speci men Type: BLOOD SPECIMEN [facility] Address: [address] [address] Performed By: #### 5 7021-8 #### [facility] CLIA [id number] [address] RBC (Bld) [#/Vol] 4.48 10*6/uL Normal 3.90-5.20 [facility] Comment on above: Order Comment: Speci men Type: BLOOD SPECIMEN [facility] Address: [address] [address] Performed By: #### 5 7021-8 #### [facility] CLIA [id number] [address] [place] WBC (Bld) [#/Vol] 6.71 10*3/uL Normal 3.70-11.00 [facility] Comment on above: Order Comment: Speci men Type: BLOOD SPECIMEN [facility] Address: [address] [place] [address] Performed By: #### 5 7021-8 #### [facility] CLIA [id number] [address] [place] Basophils (Bld) [#/Vol] 0.06 10*3/uL <0.11 k/uL [facility] Basophils/100 WBC (Bld) 0.9 % [facility] Differential cell count method Nom (Bld) Auto [facility] Eosinophils (Bld) [#/Vol] 0.15 10*3/uL <0.46 k/uL [facility] Eosinophils/100 WBC (Bld) 2.2 % [facility] Erythrocyte distribution width (RBC) [Ratio] 15.3 % High 11.5 - 15.0 % [facility] Hematocrit (Bld) [Volume fraction] 39.6 % 36.0 - 46.0 % [facility] Hemoglobin (Bld) [Mass/Vol] 12.6 g/dL 11.5 - 15.5 g/dL [facility] Immature granulocytes (Bld) [#/Vol] 0.03 10*3/uL <0.10 k/uL [facility] Immature granulocytes/100 WBC (Bld) 0.4 % [facility] Lymphocytes (Bld) [#/Vol] 1.71 10*3/uL 1.00 - 4.00 k/uL [facility] Lymphocytes/100 WBC (Bld) 25.5 % [facility] MCH (RBC) [Entitic mass] 28.1 pg 26.0 - 34.0 pg [facility] MCHC (RBC) [Mass/Vol] 31.8 g/dL 30.5 - 36.0 g/dL [facility] MCV (RBC) [Entitic vol] 88.4 fL 80.0 - 100.0 fL [facility] Monocytes (Bld) [#/Vol] 0.55 10*3/uL <0.87 k/uL [facility] Monocytes/100 WBC (Bld) 8.2 % [facility] Neutrophils (Bld) [#/Vol] 4.21 10*3/uL 1.45 - 7.50 k/uL [facility] Neutrophils/100 WBC (Bld) 62.8 % [facility] Nucleated RBC (Bld) [#/Vol] <0.01 k/uL [facility] Nucleated RBC/100 WBC (Bld) [Ratio] 0.0 /100 WBC [facility] Platelet mean volume (Bld) [Entitic vol] 10.4 fL 9.0 - 12.7 fL [facility] Platelets (Bld) [#/Vol] 164 10*3/uL 150 - 400 k/uL [facility] RBC (Bld) [#/Vol] 4.48 10*6/uL 3.90 - 5.2 0 m/uL [facility] WBC (Bld) [#/Vol] 6.71 10*3/uL 3.70 - 11.00 k/uL [facility] CNOVon 03-14-2023 CNOV Office Visit (AGGENS4) TASNEEM BATISTA ([id number]) 1945 F Date Time Provider Department 03/14/23 10:00 AM KASANDRA WONGENS4 During your visit today, we recorded the following information about you: Pulse Blood pressure Weight Height 66/minute 163/82 71.1 kg 1.613 m Kasandra Wong MD 03/14/2023 10:40 AM Signed SURGICAL SERVICES HISTORY AND PHYSICAL EXAMINATION SERVICE DATE: 03/14/2023 SERVICE TIME: 9:59 AM PRIMARY CARE PHYSICIAN: No primary care provider on file. SUBJECTIVE CHIEF COMPLAINT: hernia HISTORY OF PRESENT ILLNESS: Ms. Batista is a 77 year old female with a PMH of anemia, type 2 DM with diabetic retinopathy (dx 11 yrs ago; kavya Mcdonald; A1c <7), HLD, paraesophageal hernia, hx of [...] Left 1996 CARPAL TUNNEL Bilateral 2008 CHOLECYSTECTOMY 1993 COLONOSCOPY [...] mouth twice daily.) blood sugar diagnostic (ONETOUCH (more content not included)... Normal [facility] 03-14-2023 [facility] Telephone (AGGENS4) TASNEEM BATISTA ([id number]) 1945 F Date Time Provider Department 03/14/23 KASANDRA WONG4 During your visit today, we recorded the following information about you: Carissa Aponte MA 03/14/2023 12:21 PM Signed Manometry scheduled for 04/13/23 @ 8:30 am. Prep/instructions given to patient at checkout. Carissa Aponte MA Allergies As of Date: 03/14/2023 Noted Allergy Reaction CONTRAST DYE 05/09/2011 14 - Other: See Comments Comments: Face flushing and redness PENICILLINS 08/17/2009 2 - Rash SULFA (SULFONAMIDE ANTIBIOTICS) 08/17/2009 2 - Rash VICODIN (HYDROCODONE-ACETAMIN OPHE*08/17/2009 5 - Intolerance Date Reviewed: 03/14/2023 Reviewed by: Kasandra Wong MD - Fully Assessed Reason for Visit: Appointment [186] Cmt: Manometry Prescriptions as of 04/12/2023 - calcium citrate/vitamin D3 (CITRACAL + D ORAL) Take by mouth once daily. - omeprazole (PRILOSEC) 40 mg capsule Take 40 mg by mouth once daily. - famotidine (PEPCID) 20 mg tablet Take 20 mg by mouth twice daily. - desipramine (NORPRAMIN) 50 mg tablet Take 50 mg by mouth once daily. - rosuvastatin (CRESTOR) 40 mg tablet Take 40 mg by mouth once daily. - losartan (COZAAR) 50 mg tablet Take 50 mg by mouth once daily. - oxybutynin ER (DITROPAN XL) 10 mg 24 hr tablet Take 10 mg by mouth once daily. - Insulin Lispro, Human, (HUMALOG KWIKPEN) 100 unit/mL inpn Use 5 units with each meal - ketoconazole (NIZORAL) 2 % shampoo Apply 1 application to affected area once daily as needed. - cetirizine (ZYRTEC) 10 mg tablet Take 1 tablet by mouth once daily. - insulin glargine (LANTUS) 100 unit/mL (3 mL) inpn 10-12 Units daily at bedtime. - gabapentin (NEURONTIN) 300 mg capsule Take 1 capsule by mouth daily at bedtime. - lisinopril (PRINIVIL) 10 mg tablet Take 1 tablet by mouth once daily. - blood sugar diagnostic (Room n HouseUCH ULTRA TEST) test strip Use as instructed. Tests blood sugars 5 times a day. Dx: 250.01. - atorvastatin (LIPITOR) 40 mg tablet Take 1 tablet by mouth once daily. - insulin needles, DISPOSABLE, (PEN NEEDLE) 31 gauge x 5/16 ndle Use one needle per dose. 4 per day. - Cholecalciferol, Vitamin D3, 1,000 unit cap Take 2 capsules by mouth once daily. - Lancets (ONE TOUCH DELICA) lancets Test blood sugar(s) 4 daily. Dx: 250.02. Insulin: Yes Problem List As Of Date 03/14/2023 Noted Resolved SPINAL STENOSIS-LUMBAR [M48.061] 01/31/2008 Palpitations [R00.2] 05/12/2010 02/03/2013 Type 1 diabetes mellitus [E10.9] 10/12/2011 11/09/2015 Hyperlipidemia with target LDL less than 100 [E*01/30/2013 PAT (paroxysmal atrial tachycardia) (HCC) [I47.*03/27/2014 Type 1 diabetes mellitus without complications *03/27/2014 11/09/2015 Tubular adenoma of colon [D12.6] 07/26/2015 Type 1 diabetes mellitus without complication (*11/09/2015 02/09/2016 Type 1 diabetes mellitus without complication, *02/09/2016 BCC (basal cell carcinoma of skin) [C44.91] 08/15/2016 Radiculopathy, cervical region [M54.12] 03/25/2018 Tendinopathy of rotator cuff, right [M67.911] 02/10/2022 Encounter Status:Closed by CARISSA APONTE on 03/14/23 Normal [facility] XR CHEST 2V FRONTAL/LATon XR CHEST 2V FRONTAL/LAT * * *Final Report* * * DATE OF EXAM: Mar 14 2023 12:51PM AKX [id number] - XR CHEST 2V FRONTAL/LAT / PROCEDURE REASON: Paraesophageal hernia * * * * Physician Interpretation * * * * EXAMINATION: CHEST RADIOGRAPH (2 VIEW FRONTAL and LATERAL) CLINICAL HISTORY: Paraesophageal hernia MQ: XC2_6 EXAM DATE/TIME: 03/14/2023 12:51 PM COMPARISON: No relevant prior studies available. RESULT: Lines, tubes, and devices: None. Lungs and pleura: No consolidation. No lung mass. No pleural effusion. No pneumothorax. Cardiomediastinal silhouette: Large hiatal hernia. The heart does not appear to be enlarged. Bones and soft tissues: Prominent thoracic and upper lumbar spinal scoliosis. A metallic structure obscures the left axillary region. IMPRESSION: Large hiatal hernia. Graining Press Operator: RANDI Transcribe Date/Time: Mar 14 2023 2:01P Dictated by : MARIA ELENA HANLEY MD This examination was interpreted and the report reviewed and electronically signed by: MARIA ELENA HANLEY MD on Mar 14 2023 2:02PM EST [id number] Normal [facility] - Hematology and Cell countson 12-20-2022 HbA1c (Bld) [Mass fraction] 6.9 % 4.2-6.3 [facility] Absolute lymphocyte countOrd ered By: Dr. Mcguire on 09-29-2022 Lymphocytes Auto (Unsp spec) [#/Vol] 1.40 10*3/uL 0.83-4.51 [facility] Basophil percentageOrdered B y: Dr. Mcguire on 09-29-2022 Basophils/100 WBC (Bld) 0.8 % 0-1 [facility] [facility] Bilirubin [Mass/Vol] 0.30 mg/dL 0.20-1.00 [facility] Comment on above: For patients on eltr ombopag therapy, use of Dimension [place] TBIL is not recommended. Chloride [Moles/Vol] 109 mmol/L 98-107 [facility] Eosinophils/100 WBC (Bld) 2.6 % 0-5 [facility] Glucose [Mass/Vol] 195 mg/dL 74-106 [facility] Comment on above: Fasting Glucose resu lt greater than or equal to 126 mg/dL suggests DIABETES MELLITUS per A.D.A. criteria. Neutrophils (Bld) [#/Vol] 4.0 10*3/uL 2.0-7.7 [facility] Neutrophils/100 WBC (Bld) 65.0 % 47-70 [facility] Potassium [Moles/Vol] 4.1 mmol/L 3.5-5.1 [facility] Protein [Mass/Vol] 7.0 g/dL 6.4-8.2 [facility] Sodium [Moles/Vol] 143 mmol/L 136-145 [facility] WBC (Bld) [#/Vol] 6.2 10*3/uL 4.4-11.0 [facility] Blood erythrocytes count (nu mber/volume)Ordered By: Dr. Mcguire on 09-29-2022 RBC (Bld) [#/Vol] 4.87 10*6/uL 4.2-5.4 [facility] Blood hemoglobin measurement (mass/volume)Ordered By: Dr. Mcguire on 09-29-2022 Hemoglobin (Bld) [Mass/Vol] 13.9 g/dL 12.0-15.0 [facility] Blood lymphocytes/100 leukoc ytesOrdered By: Dr. Mcguire on 09-29-2022 Lymphocytes/100 WBC (Bld) 22.7 % 19-41 [facility] Blood monocytes/100 leukocyt esOrdered By: Dr. Mcguire on 09-29-2022 Monocytes/100 WBC (Bld) 8.4 % 0-10 [facility] Blood platelet mean volumeOr dered By: Dr. Mcguire on 09-29-2022 Platelet mean volume (Bld) [Entitic vol] 11.2 fL 6.2-12.0 [facility] Determination of erythrocyte mean corpuscular volume (MCV)Ordered By: Dr. Mcguire on 09-29-2022 MCV (RBC) [Entitic vol] 90.8 fL 81-99 [facility] Hematocrit Auto (Bld) [Volum e fraction]Ordered By: Dr. Mcguire on 09-29-2022 Hematocrit (Bld) [Volume fraction] 44.2 % 37-47 [facility] Laboratory - Chemistry and C hemistry - challengeOrdered By: Dr. Mcguire on 09-29-2022 ALP [Catalytic activity/Vol] 58 U/L 45-117 [facility] ALT [Catalytic activity/Vol] 24 U/L 13-56 [facility] CO2 [Moles/Vol] 27.0 mmol/L 21.0-32.0 [facility] Globulin (S) [Mass/Vol] 3.3 g/dL 2.2-4.2 [facility] Urea nitrogen/Creatinine [Mass ratio] 37.0 mg/mg 10-20 [facility] Laboratory - Hematology and Cell countsOrdered By: Dr. Mcguire on 09-29-2022 Erythrocyte distribution width (RBC) [Entitic vol] 46.6 fL 35.1-43.9 [facility] Erythrocyte distribution width (RBC) [Ratio] 13.9 % 11.6-14.6 [facility] Immature granulocytes/100 WBC (Bld) 0.500 % 0.0-0.9 [facility] Comment on above: IG% - Immature Granu locytes (promyelocytes, myelocytes and metamyelocytes) > 1% indicates that a LEFT SHIFT is Present. MCH (RBC) [Entitic mass] 28.5 pg 27.0-32.0 [facility] Nucleated RBC/100 WBC (Bld) [Ratio] 0 % 0-5 [facility] Laboratory - Hematology and Cell countson 09-29-2022 HbA1c (Bld) [Mass fraction] 7.2 % 4.2-6.3 [facility] MCHC Auto (RBC) [Mass/Vol]Or dered By: Dr. Mcguire on 09-29-2022 MCHC (RBC) [Mass/Vol] 31.4 g/dL 32-36 [facility] No Panel InformationOrdered By: Dr. Mcguire on 09-29-2022 Estimated GFR (MDRD) Amer 63 mL/min >60 [facility] Comment on above: GFR Calc Estimated GFR (MDRD) Non-Af Amer 52 mL/min >60 [facility] Comment on above: Non- GFR Calc Platelets bldOrdered By: Dr. Mcguire on 09-29-2022 Platelets (Bld) [#/Vol] 202 10*3/uL 150-450 [facility] Serum or plasma albumin jarad urement (mass/volume)Ordered By: Dr. Mcguire on 09-29-2022 Albumin [Mass/Vol] 3.7 g/dL 3.2-5.0 [facility] Serum or plasma albumin/glob ulin mass ratioOrdered By: Dr. Mcguire on 09-29-2022 Albumin/Globulin [Mass ratio] 1.1 {ratio} 0.9-2.4 [facility] Serum or plasma calcium jarad urement (mass/volume)Ordered By: Dr. Mcguire on 09-29-2022 Calcium [Mass/Vol] 9.8 mg/dL 8.5-10.1 [facility] Serum or plasma creatinine m easurement (mass/volume)Ordered By: Dr. Mcguire on 09-29-2022 Creatinine [Mass/Vol] 1.08 mg/dL 0.55-1.02 [facility] Comment on above: The validity of the calculated GFR & GFRAA in patients over 70 years has not been determined. Clinical correlation is essential. Serum or plasma urea nitroge n measurement (mass/volume)Ordered By: Dr. Mcguire on 09-29-2022 Urea nitrogen [Mass/Vol] 40 mg/dL 03-20 [facility] Thin prep Papanicolaou smear with manual screeningOrdered By: Dr. Mcguire on 09-29-2022 Thin prep Papanicolaou smear with manual screening 27 U/L [facility] Thin prep Papanicolaou smear with manual screening 7 5-15 [facility] Laboratory - Hematology and Cell countson 06-21-2022 HbA1c (Bld) [Mass fraction] 6.8 % 4.2-6.3 [facility] Basophil percentageOrdered B y: Nisreen Robles on 06-20-2022 Bilirubin [Mass/Vol] 0.40 mg/dL 0.20-1.00 [facility] Comment on above: For patients on eltr ombopag therapy, use of Dimension [place] TBIL is not recommended. Chloride [Moles/Vol] 108 mmol/L 98-107 [facility] Cholesterol [Mass/Vol] 155 mg/dL <200 [facility] Comment on above: <200 mg/dL Desirable 200-240 mg/dL Borderline >240 mg/dL High Risk Glucose [Mass/Vol] 196 mg/dL 74-106 [facility] Comment on above: Fasting Glucose resu lt greater than or equal to 126 mg/dL suggests DIABETES MELLITUS per A.D.A. criteria. Potassium [Moles/Vol] 4.4 mmol/L 3.5-5.1 [facility] Protein [Mass/Vol] 6.8 g/dL 6.4-8.2 [facility] Sodium [Moles/Vol] 140 mmol/L 136-145 [facility] Triglyceride [Mass/Vol] 45 mg/dL <199 [facility] Comment on above: The drugs N-Acetylcy steine and Metamizole may falsely depress this assay.Serum Triglycerides Reference Interval Normal <150 mg/dL Borderline high 150 - 199 mg/dL High 200 - 499 mg/dL Very High > or = 500 mg/dL Laboratory - Chemistry and C hemistry - challengeOrdered By: Nisreen Robles on 06-20-2022 ALP [Catalytic activity/Vol] 49 U/L 45-117 [facility] ALT [Catalytic activity/Vol] 25 U/L 13-56 [facility] CO2 [Moles/Vol] 25.0 mmol/L 21.0-32.0 [facility] Globulin (S) [Mass/Vol] 3.3 g/dL 2.2-4.2 [facility] Urea nitrogen/Creatinine [Mass ratio] 33.6 mg/mg 10-20 [facility] No Panel InformationOrdered By: Nisreen Robles on 06-20-2022 Estimated GFR (MDRD) Amer 73 mL/min >60 [facility] Comment on above: GFR Calc Estimated GFR (MDRD) Non-Af Amer 60 mL/min >60 [facility] Comment on above: Non- GFR Calc Thyroid Stimulating Hormone (TSH) 3.02 uIU/mL 0.358-3.74 [facility] Urine Microalbumin/Creatinin e Ratio 17.6 mg/g CRE <30 [facility] Vitamin D 25-Hydroxy 65.8 ng/mL [facility] Comment on above: Vitamin D 25(OH) Sta tus Range Deficiency <20 ng/mL (50nmol/L) Insufficiency 20 - 30 ng/mL (50 - 75 nmol/L) Sufficiency 30 - 100 ng/mL (75 - 250 nmol/L) Toxicity >100 ng/mL (>250 nmol/L) Serum or plasma albumin jarad urement (mass/volume)Ordered By: Nisreen Robles on 06-20-2022 Albumin [Mass/Vol] 3.5 g/dL 3.2-5.0 [facility] Serum or plasma albumin/glob ulin mass ratioOrdered By: Nisreen Robles on 06-20-2022 Albumin/Globulin [Mass ratio] 1.1 {ratio} 0.9-2.4 [facility] Serum or plasma calcium jarad urement (mass/volume)Ordered By: Nisreen Robles on 06-20-2022 Calcium [Mass/Vol] 9.3 mg/dL 8.5-10.1 [facility] Serum or plasma cholesterol in HDL measurement (mass/volume)Ordered By: Nisreen Robles on 06-20-2022 Cholesterol in HDL [Mass/Vol] 89 mg/dL >40 [facility] Comment on above: The drugs N-Acetylcy steine and Metamizole may falsely depress this assay. Reference Range HDL <40 mg/dL Low HDL Cholesterol HDL >or= 60 mg/dL High HDL Cholesterol Serum or plasma cholesterol in VLDL measurement (mass/volume)Ordered By: Nisreen Robles on 06-20-2022 Cholesterol in VLDL [Mass/Vol] 9 mg/dL 5-40 [facility] Serum or plasma creatinine m easurement (mass/volume)Ordered By: Nisreen Robles on 06-20-2022 Creatinine [Mass/Vol] 0.95 mg/dL 0.55-1.02 [facility] Comment on above: The validity of the calculated GFR & GFRAA in patients over 70 years has not been determined. Clinical correlation is essential. Serum or plasma low density lipoprotein (LDL) cholesterol measurement (mass/volume)Ordered By: Nisreen Robles on 06-20-2022 Cholesterol in LDL [Mass/Vol] 57 mg/dL 0-130 [facility] Serum or plasma urea nitroge n measurement (mass/volume)Ordered By: Nisreen Robles on 06-20-2022 Urea nitrogen [Mass/Vol] 32 mg/dL 7-18 [facility] Thin prep Papanicolaou smear with manual screeningOrdered By: Nisreen Robles on 06-20-2022 Thin prep Papanicolaou smear with manual screening 24 U/L 15-37 [facility] Thin prep Papanicolaou smear with manual screening 7 5-15 [facility] Thin prep Papanicolaou smear with manual screening 8.3 mg/L NO RANGE EST. [facility] Urine creatinine measurement (mass/volume)Ordered By: Nisreen Robles on 06-20-2022 Creatinine (U) [Mass/Vol] 47.10 mg/dL NO RANGE EST. [facility] CNOVon 06-06-2022 CNOV Office Visit (SPRTST ) TASNEEM BATISTA ([id number]) 1945 F Date Time Provider Department 06/06/22 11:50 AM GEOFFREY DENISE SPRTSAna During your visit today, we recorded the following information about you: Geoffrey Denise MD 06/06/2022 12:21 PM Signed Document Text Patient Name: Tasneem Batista Attending Physician: GEOFFREY DENISE M.D. Date of Service: 06/06/2022 Patient is seen in today in the [facility]. CHIEF COMPLAINT: Tasneem Batista is [...] I diabetic. blood sugars 118 today. Geoffrey Denise MD June 06, 2022 12:19 PM Large Joint Arthro/Inj: R shoulder joint Informed Consent Consent Obtained: Verbal [place] Protocol A moment to CARE was completed. [...] Plan of Care Visit completed when applicable Referring Provider: GEOFFREY DENISE [[id number]] Allergies As of Date: 06/06/2022 Noted Allergy Reaction CONTRAST DYE 05/09/2011 14 - Other: See Comments Comments: Face flushing and redness PENICILLINS 08/17/2009 2 - Rash SULFA (SULFONAMIDE ANTIBIOTICS) 08/17/2009 2 - Rash VICODIN (HYDROCODONE-ACETAMIN OPHE*08/17/2009 5 - Intolerance Date Reviewed: 06/06/2022 Reviewed by: Debi Pollack MA - Fully Assessed Reason for Visit: Established Patient [175] Primary Visit Diagnosis:Bursitis of right shoulder [M75.51] Order(s):Large Joint Arthro/Inj: R shoulder joint [[id number]] Order #: [id number] [] lidocaine (PF) 10 mg/mL (1 %) 4 mL injection (XYLOCAINE)Disp: Rfl: [] triamcinolone acetonide 40 mg injection (KeNALog 40)Disp: Rfl: Prescriptions as of 06/06/2022 - desipramine (NORPRAMIN) 50 mg tablet Take 50 mg by mouth once daily. - rosuvastatin (CRESTOR) 40 mg tablet Take 40 mg by mouth once daily. - losartan (COZAAR) 50 mg tablet Take 50 mg by mouth once daily. - oxybutynin ER (DITROPAN XL) 10 mg 24 hr tablet Take 10 mg by mouth once daily. - Insulin Lispro, Human, (HUMALOG KWIKPEN) 100 unit/mL inpn Use 5 units with each meal - ketoconazole (NIZORAL) 2 % shampoo Apply 1 application to affected area once daily as needed. - cetirizine (ZYRTEC) 10 mg tablet Take 1 tablet by mouth once daily. - insulin glargine (LANTUS) 100 unit/mL (3 mL) inpn 10-12 Units daily at bedtime. - gabapentin (NEURONTIN) 300 mg capsule Take 1 capsule by mouth daily at bedtime. - lisinopril (PRINIVIL) 10 mg tablet Take 1 tablet by mouth once daily. - blood sugar diagnostic (AnagearTOUCH ULTRA TEST) test strip Use as instructed. Tests blood sugars 5 times a day. Dx: 250.01. - atorvastatin (LIPITOR) 40 mg tablet Take 1 tablet by mouth once daily. - insulin needles, DISPOSABLE, (PEN NEEDLE) 31 gauge x 5/16 ndle Use one needle per dose. 4 per day. - Cholecalciferol, Vitamin D3, 1,000 unit cap Take 2 capsules by mouth once daily. - Lancets (ONE TOUCH DELICA) lancets Test blood sugar(s) 4 daily. Dx: 250.02. Insulin: Yes Problem List As Of Date 06/06/2022 Noted Resolved SPINAL STENOSIS-LUMBAR [M48.061] 01/31/2008 Palpitations [R00.2] 05/12/2010 02/03/2013 Type 1 diabetes mellitus [E10.9] 10/12/2011 11/09/2015 Hyperlipidemia with target LDL less than 100 [E*01/30/2013 PAT (paroxysmal atrial tachycardia) (HCC) [I47.*03/27/2014 Type 1 diabetes mellitus without complications *03/27/2014 11/09/2015 Tubular adenoma of colon [D12.6] 07/26/2015 Type 1 diabetes mellitus without complication (*11/09/2015 02/09/2016 Type 1 diabetes mellitus without complication, * (more content not included)... Normal [facility] CNOVon 05-30-2022 CNOV Office Visit (SPRTST ) TASNEEM BATISTA ([id number]) 1945 F Date Time Provider Department 05/30/22 10:40 AM GEOFFREY DENISE SPRTST During your visit today, we recorded the following information about you: Geoffrey Denise MD 06/28/2022 10:40 AM Signed CHIEF COMPLAINT: Patient presents with: Right Shoulder - New HISTORY OF PRESENT ILLNESS: Tasneem Batista is a 77 year old female with a history of right shoulder pain for five months. no injury or change in activity. it started hurting with gardening. it hasn't gone away. she did PT. it is worse after PT. he sent her to [place] orthopedist. she had an xray. she doesn't [...] taking: Reported on 05/05/2022) blood sugar diagnostic (Room n HouseUCH ULTRA TEST) test strip Use as instructed. [...] no acute distress, alert and oriented x3. Musculoskeletal/Neuro logic: Inspection-Deformity: No., Atrophy:No. Palpation-Tenderness: No. ROM-Cervical Spine:Normal Right shoulder flexion: 170, IR (more content not included)... Normal [facility] CNOVon 05-05-2022 CNOV Office Visit (SPMEST ) TASNEEM BATISTA ([id number]) 1945 F Date Time Provider Department 05/05/22 9:10 AM FRANCK HALL During your visit today, we recorded the following information about you: Franck Hall DO 05/05/2022 11:30 AM Signed CC: Cervical spine pain, right arm/shoulder pain [...] pain with intermittent radiation into her left buttock/posterolatera l thigh. Pain does not radiate past the [...] hands or drooping things, denies clumsiness of feet/tripping/falling . Denies any constitutional or myelopathic symptomatology. No [...] and atraumatic Heart: Extremities well perfused, no cyanosis/clubbing/jeanine ma Lungs: Symmetric chest rise, non labored on [...] intramedullary cord signal abnormality. Lumbar spine: Progression (more content not included)... Normal [facility] Laboratory - Hematology and Cell countson 03-22-2022 HbA1c (Bld) [Mass fraction] 6.3 % 4.2-6.3 [facility] Work Phone: CNTHERAPYon 03-13-2022 CNTHERAPY OT/PT/Speech Visit (PTWS) TASNEEM BATISTA ([id number]) 1945 F Date Time Provider Department 03/13/22 9:45 AM JAVON TURCIOS PTWS Date Time Provider Department Center 03/13/2022 9:45 AM [id number], SEAN PTWS [facility] Reason for Visit: PT Discharge [752] Primary Visit Diagnosis:Tendinopath y of rotator cuff, right [M67.911] Allergies As of Date: 03/13/2022 Noted Allergy Reaction CONTRAST DYE 05/09/2011 14 - Other: See Comments Comments: Face flushing and redness PENICILLINS 08/17/2009 2 - Rash SULFA (SULFONAMIDE ANTIBIOTICS) 08/17/2009 2 - Rash VICODIN (HYDROCODONE-ACETAMIN OPHE*08/17/2009 5 - Intolerance Date Reviewed: 01/31/2022 Reviewed by: Ginger Lara MA - Fully Assessed Prescriptions as of 03/13/2022 - rosuvastatin (CRESTOR) 40 mg tablet Take 40 mg by mouth once daily. - losartan (COZAAR) 50 mg tablet Take 50 mg by mouth once daily. - oxybutynin ER (DITROPAN XL) 10 mg 24 hr tablet Take 10 mg by mouth once daily. - Insulin Lispro, Human, (HUMALOG KWIKPEN) 100 unit/mL inpn Use 5 units with each meal - ketoconazole (NIZORAL) 2 % shampoo Apply 1 application to affected area once daily as needed. - cetirizine (ZYRTEC) 10 mg tablet Take 1 tablet by mouth once daily. - insulin glargine (LANTUS) 100 unit/mL (3 mL) inpn 10-12 Units daily at bedtime. - gabapentin (NEURONTIN) 300 mg capsule Take 1 capsule by mouth daily at bedtime. - lisinopril (PRINIVIL) 10 mg tablet Take 1 tablet by mouth once daily. - blood sugar diagnostic (AnagearTOUCH ULTRA TEST) test strip Use as instructed. Tests blood sugars 5 times a day. Dx: 250.01. - atorvastatin (LIPITOR) 40 mg tablet Take 1 tablet by mouth once daily. - insulin needles, DISPOSABLE, (PEN NEEDLE) 31 gauge x 5/16 ndle Use one needle per dose. 4 per day. - Cholecalciferol, Vitamin D3, 1,000 unit cap Take 2 capsules by mouth once daily. - Lancets (ONE TOUCH DELICA) lancets Test blood sugar(s) 4 daily. Dx: 250.02. Insulin: Yes Normal 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 - losartan (COZAAR) 50 mg tablet Take 50 mg by mouth once daily. - oxybutynin ER (DITROPAN XL) 10 mg 24 hr tablet Take 10 mg by mouth once daily. - Insulin Lispro, Human, (HUMALOG KWIKPEN) 100 unit/mL inpn Use 5 units with each meal - ketoconazole (NIZORAL) 2 % shampoo Apply 1 application to affected area once daily as needed. - cetirizine (ZYRTEC) 10 mg tablet Take 1 tablet by mouth once daily. - insulin glargine (LANTUS) 100 unit/mL (3 mL) inpn 10-12 Units daily at bedtime. - gabapentin (NEURONTIN) 300 mg capsule Take 1 capsule by mouth daily at bedtime. - lisinopril (PRINIVIL) 10 mg tablet Take 1 tablet by mouth once daily. - blood sugar diagnostic (GPNX ULTRA TEST) test strip Use as instructed. Tests blood sugars 5 times a day. Dx: 250.01. - atorvastatin (LIPITOR) 40 mg tablet Take 1 tablet by mouth once daily. - insulin needles, DISPOSABLE, (PEN NEEDLE) 31 gauge x 5/16 ndle Use one needle per dose. 4 per day. - Cholecalciferol, Vitamin D3, 1,000 unit cap Take 2 capsules by mouth once daily. - Lancets (ONE TOUCH DELICA) lancets Test blood sugar(s) 4 daily. Dx: 250.02. Insulin: Yes Normal [facility] MRI CERVICAL SPINE WO IVCONo n 02-24-2022 MRI CERVICAL SPINE WO IVCON * * *Final Report* * * DATE OF EXAM: Feb 24 2022 11:31AM [id number] - MRI CERVICAL SPINE WO IVCON / PROCEDURE REASON: multiple diagnoses * * * * Physician Interpretation * * * * EXAMINATION: MRI CERVICAL SPINE WO IVCON, MRI LUMBAR SPINE WO IVCON CLINICAL HISTORY: Cervicalgia. Radiculopathy, cervical region. Bladder dysfunction Spinal stenosis of cervical region. TECHNIQUE: Routine cervical and lumbosacral spine MR protocol without gadolinium. MQ: [id number] COMPARISON: 12/07/2021 lumbar spine radiographs, imported 01/06/2011 lumbar spine MRI RESULT: CERVICAL: Counting reference: Craniocervical junction. Anatomic Variants: None. Localizer images: Noncontributory Alignment: Approximately 3 mm grade 1 anterolisthesis of C2 on C3. Mild kyphotic curvature centered at C3-C4. Levocurvature of the upper thoracic spine centered at T3-T4. Craniocervical junction: Craniocervical junction is normal. Cord: Mild cord flattening at C4-C5 and C5-C6 secondary to disc osteophyte complexes, but no severe cord compression, intramedullary cord signal abnormality, cord volume loss. Bone marrow signal/fracture: No evidence of pathologic marrow infiltration. No evidence of prior fracture. Cervical soft tissues: The paraspinal soft tissues are within normal limits. C2-C3: Patent spinal canal. Facet hypertrophy contributes to mild left foraminal narrowing. Patent right neural foramen. C3-C4: Moderate to advanced degenerative disc height loss. Disc osteophyte complex contributing to mild spinal canal narrowing. Uncovertebral and facet hypertrophy contributing to moderate left and mild right foraminal narrowing. C4-C5: Moderate to advanced degenerative disc height loss. Disc osteophyte complex contributing to mild to moderate spinal canal narrowing with underlying subtle cord flattening eccentric to the left. Uncovertebral and facet hypertrophy contributes to moderate left and no substantial right foraminal narrowing. C5-C6: Moderate to advanced degenerative disc height loss. Disc osteophyte complex contributing to moderate spinal canal narrowing with underlying cord flattening. Uncovertebral and facet hypertrophy contributes to severe left and mild right foraminal narrowing. C6-C7: Moderate degenerative disc height loss. Small disc osteophyte complex and dorsal ligamentous prominence contributing to mild spinal canal narrowing. Uncovertebral hypertrophy without substantial foraminal narrowing. C7-T1: Canal and foramina are patent. Partially imaged upper thoracic spine: Small right central protrusion at T3-T4 without substantial spinal canal narrowing. The neural foramina appear patent within the constraints of exam. LUMBAR: Counting reference: Lumbosacral junction. For the purposes of this report, L4-5 is considered the level of the iliac crest and assume there are 5 lumbar-type vertebrae. Anatomic variant: None. Localizer images: Large hiatal hernia, bilateral presumed renal cysts, postoperative changes of cholecystectomy with ectatic common bile duct, and postoperative changes of hysterectomy. Alignment: Severe levoscoliotic curvature with the apex centered at L2 and underlying advanced right-sided degenerative disc height loss at L1-L2 and L2-L3 as well as the left lateral listhesis of L3 on L4 and L4 on L5 with advanced degenerative disc height loss at L3-L4 and eccentric to the left at L4-L5. Diffuse advanced degenerative disc height loss at L5-S1. Relative to the 2011 examination there has been progressive exaggeration of the levoscoliotic curvature and progressed underlying degenerative disc height loss and increased left lateral listhesis of L3 on L4. Bone marrow signal/fracture: No evidence of pathologic marrow infiltration. No evidence of prior fracture. Conus: Normal in signal and morphology terminating at the level of the L1 vertebral body. Lumbar soft tissues: Apart from mild atrophy and distortion related to spinal curvature, the paraspinal and paravertebral soft tissues are unremarkable. Lower thoracic spine: Multiple small disc bulges with no high-grade spinal canal stenosis. Facet hypertrophy on the left at multiple levels, but no high-grade neuroforaminal narrowing. T12-L1: Endplate osteophyte formation without substantial spinal canal narrowing, mild right subarticular zone narrowing, and mild right foraminal narrowing. Patent left neural foramen. L1-L2: Disc bulge, endplate osteophyte formation, and hypertrophic facet arthropathy without substantial spinal canal narrowing, mild right subarticular zone narrowing, and mild right foraminal narrowing. Patent left neural foramen. L2-L3: Minimal disc bulge, endplate osteophyte formation, and hypertrophic facet arthropathy without substantial spinal canal narrowing, mild right-sided subarticular zone narrowing, and no substantial foraminal narrowing. L3-L4: Endplate osteophyte for (more content not included)... Normal [facility] MRI LUMBAR SPINE WO IVCONon 02-24-2022 MRI LUMBAR SPINE WO IVCON * * *Final Report* * * DATE OF EXAM: Feb 24 2022 12:02PM [id number] - MRI LUMBAR SPINE WO IVCON / PROCEDURE REASON: Spinal stenosis of lumbar region without neurogenic claudication * * * * Physician Interpretation * * * * EXAMINATION: MRI CERVICAL SPINE WO IVCON, MRI LUMBAR SPINE WO [facility] CLINICAL HISTORY: Cervicalgia. Radiculopathy, cervical region. Bladder dysfunction Spinal stenosis of cervical region. TECHNIQUE: Routine cervical and lumbosacral spine MR protocol without gadolinium. MQ: [id number] COMPARISON: 12/07/2021 lumbar spine radiographs, imported 01/06/2011 lumbar spine MRI RESULT: CERVICAL: Counting reference: Craniocervical junction. Anatomic Variants: None. Localizer images: Noncontributory Alignment: Approximately 3 mm grade 1 anterolisthesis of C2 on C3. Mild kyphotic curvature centered at C3-C4. Levocurvature of the upper thoracic spine centered at T3-T4. Craniocervical junction: Craniocervical junction is normal. Cord: Mild cord flattening at C4-C5 and C5-C6 secondary to disc osteophyte complexes, but no severe cord compression, intramedullary cord signal abnormality, cord volume loss. Bone marrow signal/fracture: No evidence of pathologic marrow infiltration. No evidence of prior fracture. Cervical soft tissues: The paraspinal soft tissues are within normal limits. C2-C3: Patent spinal canal. Facet hypertrophy contributes to mild left foraminal narrowing. Patent right neural foramen. C3-C4: Moderate to advanced degenerative disc height loss. Disc osteophyte complex contributing to mild spinal canal narrowing. Uncovertebral and facet hypertrophy contributing to moderate left and mild right foraminal narrowing. C4-C5: Moderate to advanced degenerative disc height loss. Disc osteophyte complex contributing to mild to moderate spinal canal narrowing with underlying subtle cord flattening eccentric to the left. Uncovertebral and facet hypertrophy contributes to moderate left and no substantial right foraminal narrowing. C5-C6: Moderate to advanced degenerative disc height loss. Disc osteophyte complex contributing to moderate spinal canal narrowing with underlying cord flattening. Uncovertebral and facet hypertrophy contributes to severe left and mild right foraminal narrowing. C6-C7: Moderate degenerative disc height loss. Small disc osteophyte complex and dorsal ligamentous prominence contributing to mild spinal canal narrowing. Uncovertebral hypertrophy without substantial foraminal narrowing. C7-T1: Canal and foramina are patent. Partially imaged upper thoracic spine: Small right central protrusion at T3-T4 without substantial spinal canal narrowing. The neural foramina appear patent within the constraints of exam. LUMBAR: Counting reference: Lumbosacral junction. For the purposes of this report, L4-5 is considered the level of the iliac crest and assume there are 5 lumbar-type vertebrae. Anatomic variant: None. Localizer images: Large hiatal hernia, bilateral presumed renal cysts, postoperative changes of cholecystectomy with ectatic common bile duct, and postoperative changes of hysterectomy. Alignment: Severe levoscoliotic curvature with the apex centered at L2 and underlying advanced right-sided degenerative disc height loss at L1-L2 and L2-L3 as well as the left lateral listhesis of L3 on L4 and L4 on L5 with advanced degenerative disc height loss at L3-L4 and eccentric to the left at L4-L5. Diffuse advanced degenerative disc height loss at L5-S1. Relative to the 2011 examination there has been progressive exaggeration of the levoscoliotic curvature and progressed underlying degenerative disc height loss and increased left lateral listhesis of L3 on L4. Bone marrow signal/fracture: No evidence of pathologic marrow infiltration. No evidence of prior fracture. Conus: Normal in signal and morphology terminating at the level of the L1 vertebral body. Lumbar soft tissues: Apart from mild atrophy and distortion related to spinal curvature, the paraspinal and paravertebral soft tissues are unremarkable. Lower thoracic spine: Multiple small disc bulges with no high-grade spinal canal stenosis. Facet hypertrophy on the left at multiple levels, but no high-grade neuroforaminal narrowing. T12-L1: Endplate osteophyte formation without substantial spinal canal narrowing, mild right subarticular zone narrowing, and mild right foraminal narrowing. Patent left neural foramen. L1-L2: Disc bulge, endplate osteophyte formation, and hypertrophic facet arthropathy without substantial spinal canal narrowing, mild right subarticular zone narrowing, and mild right foraminal narrowing. Patent left neural foramen. L2-L3: Minimal disc bulge, endplate osteophyte formation, and hypertrophic facet arthropathy without substantial spinal canal narrowing, mild right-sided subarticular zone narrowing, and no substantial foramin (more content not included)... 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 - losartan (COZAAR) 50 mg tablet Take 50 mg by mouth once daily. - oxybutynin ER (DITROPAN XL) 10 mg 24 hr tablet Take 10 mg by mouth once daily. - Insulin Lispro, Human, (HUMALOG KWIKPEN) 100 unit/mL inpn Use 5 units with each meal - ketoconazole (NIZORAL) 2 % shampoo Apply 1 application to affected area once daily as needed. - cetirizine (ZYRTEC) 10 mg tablet Take 1 tablet by mouth once daily. - insulin glargine (LANTUS) 100 unit/mL (3 mL) inpn 10-12 Units daily at bedtime. - gabapentin (NEURONTIN) 300 mg capsule Take 1 capsule by mouth daily at bedtime. - lisinopril (PRINIVIL) 10 mg tablet Take 1 tablet by mouth once daily. - blood sugar diagnostic (Room n HouseUCH ULTRA TEST) test strip Use as instructed. Tests blood sugars 5 times a day. Dx: 250.01. - atorvastatin (LIPITOR) 40 mg tablet Take 1 tablet by mouth once daily. - insulin needles, DISPOSABLE, (PEN NEEDLE) 31 gauge x 5/16 ndle Use one needle per dose. 4 per day. - Cholecalciferol, Vitamin D3, 1,000 unit cap Take 2 capsules by mouth once daily. - Lancets (ONE TOUCH DELICA) lancets Test blood sugar(s) 4 daily. Dx: 250.02. Insulin: Yes Normal 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 - losartan (COZAAR) 50 mg tablet Take 50 mg by mouth once daily. - oxybutynin ER (DITROPAN XL) 10 mg 24 hr tablet Take 10 mg by mouth once daily. - Insulin Lispro, Human, (HUMALOG KWIKPEN) 100 unit/mL inpn Use 5 units with each meal - ketoconazole (NIZORAL) 2 % shampoo Apply 1 application to affected area once daily as needed. - cetirizine (ZYRTEC) 10 mg tablet Take 1 tablet by mouth once daily. - insulin glargine (LANTUS) 100 unit/mL (3 mL) inpn 10-12 Units daily at bedtime. - gabapentin (NEURONTIN) 300 mg capsule Take 1 capsule by mouth daily at bedtime. - lisinopril (PRINIVIL) 10 mg tablet Take 1 tablet by mouth once daily. - blood sugar diagnostic (AnagearTOUCH ULTRA TEST) test strip Use as instructed. Tests blood sugars 5 times a day. Dx: 250.01. - atorvastatin (LIPITOR) 40 mg tablet Take 1 tablet by mouth once daily. - insulin needles, DISPOSABLE, (PEN NEEDLE) 31 gauge x 5/16 ndle Use one needle per dose. 4 per day. - Cholecalciferol, Vitamin D3, 1,000 unit cap Take 2 capsules by mouth once daily. - Lancets (ONE TOUCH DELICA) lancets Test blood sugar(s) 4 daily. Dx: 250.02. Insulin: Yes Letter Text Normal [facility] CNOVon 01-31-2022 CNOV Office Visit (SPMEST ) TASNEEM BATISTA ([id number]) 1945 F Date Time Provider Department 01/31/22 11:20 AM FRANCK HALL During your visit today, we recorded the following information about you: Weight Height 67.1 kg 1.613 m Franck Hall DO 02/07/2022 11:54 PM Signed Follow-up Visit [facility] January [...] Dye, Penicillins, Sulfa (Sulfonamide Antibiotics), and Vicodin [Hydrocodone-Acetamin ophen] DATA REVIEW: No additonal imaging reviewed today OBJECTIVE: Vital Signs: Ht 161.3 cm (5' 3.5) Wt 67.1 kg (148 lb) BMI 25.81 [...] MRIs and will discuss further treatment options (more content not included)... Normal [facility] CNTHERAPYon 01-20-2022 CNTHERAPY OT/PT/Speech Visit (PTWS) TASNEEM BATISTA ([id number]) 1945 F Date Time Provider Department 01/20/22 9:30 AM CHUCHO YUAN PTWS Date Time Provider Department Center 01/20/2022 9:30 AM [id number], BRENT PTWS Nahomy You Reason for Visit: PT Discharge [752] Primary Visit Diagnosis:Pain in joint involving ankle and foot, unspecified laterality [M25.579] Allergies As of Date: 01/20/2022 Noted Allergy Reaction CONTRAST DYE 05/09/2011 14 - Other: See Comments Comments: Face flushing and redness PENICILLINS 08/17/2009 2 - Rash SULFA (SULFONAMIDE ANTIBIOTICS) 08/17/2009 2 - Rash VICODIN (HYDROCODONE-ACETAMIN OPHE*08/17/2009 5 - Intolerance Date Reviewed: 01/16/2022 Reviewed by: Meme Dejesus Ma - Fully Assessed Prescriptions as of 01/20/2022 - rosuvastatin (CRESTOR) 40 mg tablet Take 40 mg by mouth once daily. - losartan (COZAAR) 50 mg tablet Take 50 mg by mouth once daily. - oxybutynin ER (DITROPAN XL) 10 mg 24 hr tablet Take 10 mg by mouth once daily. - Insulin Lispro, Human, (HUMALOG KWIKPEN) 100 unit/mL inpn Use 5 units with each meal - ketoconazole (NIZORAL) 2 % shampoo Apply 1 application to affected area once daily as needed. - cetirizine (ZYRTEC) 10 mg tablet Take 1 tablet by mouth once daily. - insulin glargine (LANTUS) 100 unit/mL (3 mL) inpn 10-12 Units daily at bedtime. - gabapentin (NEURONTIN) 300 mg capsule Take 1 capsule by mouth daily at bedtime. - lisinopril (PRINIVIL) 10 mg tablet Take 1 tablet by mouth once daily. - blood sugar diagnostic (ONETOUCH ULTRA TEST) test strip Use as instructed. Tests blood sugars 5 times a day. Dx: 250.01. - atorvastatin (LIPITOR) 40 mg tablet Take 1 tablet by mouth once daily. - insulin needles, DISPOSABLE, (PEN NEEDLE) 31 gauge x 5/16 ndle Use one needle per dose. 4 per day. - Cholecalciferol, Vitamin D3, 1,000 unit cap Take 2 capsules by mouth once daily. - Lancets (ONE TOUCH DELICA) lancets Test blood sugar(s) 4 daily. Dx: 250.02. Insulin: Yes Letter Text Normal [facility] CNOVon 01-16-2022 CNOV Office Visit (ORTHWS ) TASNEEM BATISTA ([id number]) 1945 F Date Time Provider Department 01/16/22 8:00 AM ELENO REYNA During your visit today, we recorded the following information about you: Weight Height 67.6 kg 1.613 m Eleno Reyna MD 01/16/2022 10:27 AM Signed Eleno Reyna MD Department of Orthopaedics Orthopa[facility]ics [address] [facility] [address] Dept: [phone] Dept January 16, 2022 Consultation requested by [...] by Dr. Hall. X-rays done today at [facility]. AMB ROOMING INTAKE FLOWSHEET DATA Risk Screening [...] as to contrast therapies and/or to take analgesics/anti-infla mmatories as needed and all contraindications were reviewed. [...] and findings of chronic rotator cuff arthropathy/tearing. Graining Press Operator: RANDI ? Transcribe Date/Time: Jan 16 2022 [...] complication - Irregular heartbeat - Obesity - Pancreatit (more content not included)... Normal [facility] XR SHLDR >/=3V AP/YADI AP/OTH R RTon 01-16-2022 XR SHLDR >/=3V AP/YADI AP/OTHR RT * * *Final Report* * * DATE [...] calcific tendinosis. Included right hemithorax is unremarkable. IMPRESSION: Mild glenohumeral osteoarthritis and findings of chronic rotator cuff arthropathy/tearing. Graining Press Operator: RANDI Transcribe Date/Time: Jan 16 2022 9:46A Dictated by : MALU TAPIA MD This examination was interpreted and the report reviewed and electronically signed by: MALU TAPIA MD on Jan 16 2022 9:48AM EST [id number] Normal [facility] XR SHOULDER GENERAL 3V OR MO RE AP/TRUE AP/OTHER RIGHTon 01-16-2022 [facility] CNTHERAPYon 01-11-2022 CNTHERAPY OT/PT/Speech Visit (PTWS) TASNEEM BATISTA ([id number]) 1945 F Date Time Provider Department 01/11/22 10:00 AM CHUCHO YUAN PTPHOEBE Date Time Provider Department Center 01/11/2022 10:00 AM [id number], BRENT PTWS Nahomy You Reason for Visit: PT Discharge [752] Primary Visit Diagnosis:Radiculopat hy, cervical region [M54.12] Other Visit Diagnosis:Spinal stenosis, lumbar region, without neurogenic claudication [M48.061] Allergies As of Date: 01/11/2022 Noted Allergy Reaction CONTRAST DYE 05/09/2011 14 - Other: See Comments Comments: Face flushing and redness PENICILLINS 08/17/2009 2 - Rash SULFA (SULFONAMIDE ANTIBIOTICS) 08/17/2009 2 - Rash VICODIN (HYDROCODONE-ACETAMIN OPHE*08/17/2009 5 - Intolerance Date Reviewed: 05/16/2016 Reviewed by: Krissy Mccartney LPN - Fully Assessed Prescriptions as of 01/11/2022 - rosuvastatin (CRESTOR) 40 mg tablet Take 40 mg by mouth once daily. - losartan (COZAAR) 50 mg tablet Take 50 mg by mouth once daily. - oxybutynin ER (DITROPAN XL) 10 mg 24 hr tablet Take 10 mg by mouth once daily. - Insulin Lispro, Human, (HUMALOG KWIKPEN) 100 unit/mL inpn Use 5 units with each meal - ketoconazole (NIZORAL) 2 % shampoo Apply 1 application to affected area once daily as needed. - cetirizine (ZYRTEC) 10 mg tablet Take 1 tablet by mouth once daily. - insulin glargine (LANTUS) 100 unit/mL (3 mL) inpn 10-12 Units daily at bedtime. - gabapentin (NEURONTIN) 300 mg capsule Take 1 capsule by mouth daily at bedtime. - lisinopril (PRINIVIL) 10 mg tablet Take 1 tablet by mouth once daily. - blood sugar diagnostic (Room n HouseUCH ULTRA TEST) test strip Use as instructed. Tests blood sugars 5 times a day. Dx: 250.01. - atorvastatin (LIPITOR) 40 mg tablet Take 1 tablet by mouth once daily. - insulin needles, DISPOSABLE, (PEN NEEDLE) 31 gauge x 5/16 ndle Use one needle per dose. 4 per day. - Cholecalciferol, Vitamin D3, 1,000 unit cap Take 2 capsules by mouth once daily. - Lancets (ONE TOUCH DELICA) lancets Test blood sugar(s) 4 daily. Dx: 250.02. Insulin: Yes Normal [facility] CNTHERAPYon 01-09-2022 CNTHERAPY OT/PT/Speech Visit (PTWS) TASNEEM BATISTA ([id number]) 1945 F Date Time Provider Department 01/09/22 10:45 AM YUSRA PEGUERO PTPHOEBE Date Time Provider Department Center 01/09/2022 10:45 AM [id number], NANCY PTPHOEBE Nahomy You Reason for Visit: Physical Therapy [503] Primary Visit Diagnosis:Radiculopat hy, cervical region [M54.12] Other Visit Diagnosis:Spinal stenosis, lumbar region, without neurogenic claudication [M48.061] Allergies As of Date: 01/09/2022 Noted Allergy Reaction CONTRAST DYE 05/09/2011 14 - Other: See Comments Comments: Face flushing and redness PENICILLINS 08/17/2009 2 - Rash SULFA (SULFONAMIDE ANTIBIOTICS) 08/17/2009 2 - Rash VICODIN (HYDROCODONE-ACETAMIN OPHE*08/17/2009 5 - Intolerance Date Reviewed: 05/16/2016 Reviewed by: Krissy Mccartney LPN - Fully Assessed Prescriptions as of 01/09/2022 - rosuvastatin (CRESTOR) 40 mg tablet Take 40 mg by mouth once daily. - losartan (COZAAR) 50 mg tablet Take 50 mg by mouth once daily. - oxybutynin ER (DITROPAN XL) 10 mg 24 hr tablet Take 10 mg by mouth once daily. - Insulin Lispro, Human, (HUMALOG KWIKPEN) 100 unit/mL inpn Use 5 units with each meal - ketoconazole (NIZORAL) 2 % shampoo Apply 1 application to affected area once daily as needed. - cetirizine (ZYRTEC) 10 mg tablet Take 1 tablet by mouth once daily. - insulin glargine (LANTUS) 100 unit/mL (3 mL) inpn 10-12 Units daily at bedtime. - gabapentin (NEURONTIN) 300 mg capsule Take 1 capsule by mouth daily at bedtime. - lisinopril (PRINIVIL) 10 mg tablet Take 1 tablet by mouth once daily. - blood sugar diagnostic (GPNX ULTRA TEST) test strip Use as instructed. Tests blood sugars 5 times a day. Dx: 250.01. - atorvastatin (LIPITOR) 40 mg tablet Take 1 tablet by mouth once daily. - insulin needles, DISPOSABLE, (PEN NEEDLE) 31 gauge x 5/16 ndle Use one needle per dose. 4 per day. - Cholecalciferol, Vitamin D3, 1,000 unit cap Take 2 capsules by mouth once daily. - Lancets (ONE TOUCH DELICA) lancets Test blood sugar(s) 4 daily. Dx: 250.02. Insulin: Yes Normal [facility] CNTHERAPYon 01-04-2022 CNTHERAPY OT/PT/Speech Visit (PTWS) TASNEEM BATISTA ([id number]) 1945 F Date Time Provider Department 01/04/22 10:00 AM CHUCHO YUAN PTPHOEBE Date Time Provider Department Center 01/04/2022 10:00 AM [id number], BRENT PTPHOEBE You Reason for Visit: Physical Therapy [503] Primary Visit Diagnosis:Radiculopat hy, cervical region [M54.12] Other Visit Diagnosis:Spinal stenosis, lumbar region, without neurogenic claudication [M48.061] Allergies As of Date: 01/04/2022 Noted Allergy Reaction CONTRAST DYE 05/09/2011 14 - Other: See Comments Comments: Face flushing and redness PENICILLINS 08/17/2009 2 - Rash SULFA (SULFONAMIDE ANTIBIOTICS) 08/17/2009 2 - Rash VICODIN (HYDROCODONE-ACETAMIN OPHE*08/17/2009 5 - Intolerance Date Reviewed: 05/16/2016 Reviewed by: Krissy Mccartney LPN - Fully Assessed Prescriptions as of 01/04/2022 - rosuvastatin (CRESTOR) 40 mg tablet Take 40 mg by mouth once daily. - losartan (COZAAR) 50 mg tablet Take 50 mg by mouth once daily. - oxybutynin ER (DITROPAN XL) 10 mg 24 hr tablet Take 10 mg by mouth once daily. - Insulin Lispro, Human, (HUMALOG KWIKPEN) 100 unit/mL inpn Use 5 units with each meal - ketoconazole (NIZORAL) 2 % shampoo Apply 1 application to affected area once daily as needed. - cetirizine (ZYRTEC) 10 mg tablet Take 1 tablet by mouth once daily. - insulin glargine (LANTUS) 100 unit/mL (3 mL) inpn 10-12 Units daily at bedtime. - gabapentin (NEURONTIN) 300 mg capsule Take 1 capsule by mouth daily at bedtime. - lisinopril (PRINIVIL) 10 mg tablet Take 1 tablet by mouth once daily. - blood sugar diagnostic (AnagearTOUCH ULTRA TEST) test strip Use as instructed. Tests blood sugars 5 times a day. Dx: 250.01. - atorvastatin (LIPITOR) 40 mg tablet Take 1 tablet by mouth once daily. - insulin needles, DISPOSABLE, (PEN NEEDLE) 31 gauge x 5/16 ndle Use one needle per dose. 4 per day. - Cholecalciferol, Vitamin D3, 1,000 unit cap Take 2 capsules by mouth once daily. - Lancets (ONE TOUCH DELICA) lancets Test blood sugar(s) 4 daily. Dx: 250.02. Insulin: Yes Normal [facility] CNTHERAPYon 01-02-2022 CNTHERAPY OT/PT/Speech Visit (PTWS) TASNEEM BATISTA ([id number]) 1945 F Date Time Provider Department 01/02/22 10:45 AM YUSRA PEGUERO PTWS Date Time Provider Department Center 01/02/2022 10:45 AM [id number], NANCY PTWS Nahomy You Reason for Visit: Physical Therapy [503] Primary Visit Diagnosis:Radiculopat hy, cervical region [M54.12] Other Visit Diagnosis:Spinal stenosis, lumbar region, without neurogenic claudication [M48.061] Allergies As of Date: 01/02/2022 Noted Allergy Reaction CONTRAST DYE 05/09/2011 14 - Other: See Comments Comments: Face flushing and redness PENICILLINS 08/17/2009 2 - Rash SULFA (SULFONAMIDE ANTIBIOTICS) 08/17/2009 2 - Rash VICODIN (HYDROCODONE-ACETAMIN OPHE*08/17/2009 5 - Intolerance Date Reviewed: 05/16/2016 Reviewed by: Krissy Mccartney LPN - Fully Assessed Prescriptions as of 01/02/2022 - rosuvastatin (CRESTOR) 40 mg tablet Take 40 mg by mouth once daily. - losartan (COZAAR) 50 mg tablet Take 50 mg by mouth once daily. - oxybutynin ER (DITROPAN XL) 10 mg 24 hr tablet Take 10 mg by mouth once daily. - Insulin Lispro, Human, (HUMALOG KWIKPEN) 100 unit/mL inpn Use 5 units with each meal - ketoconazole (NIZORAL) 2 % shampoo Apply 1 application to affected area once daily as needed. - cetirizine (ZYRTEC) 10 mg tablet Take 1 tablet by mouth once daily. - insulin glargine (LANTUS) 100 unit/mL (3 mL) inpn 10-12 Units daily at bedtime. - gabapentin (NEURONTIN) 300 mg capsule Take 1 capsule by mouth daily at bedtime. - lisinopril (PRINIVIL) 10 mg tablet Take 1 tablet by mouth once daily. - blood sugar diagnostic (AnagearTOUCH ULTRA TEST) test strip Use as instructed. Tests blood sugars 5 times a day. Dx: 250.01. - atorvastatin (LIPITOR) 40 mg tablet Take 1 tablet by mouth once daily. - insulin needles, DISPOSABLE, (PEN NEEDLE) 31 gauge x 5/16 ndle Use one needle per dose. 4 per day. - Cholecalciferol, Vitamin D3, 1,000 unit cap Take 2 capsules by mouth once daily. - Lancets (ONE TOUCH DELICA) lancets Test blood sugar(s) 4 daily. Dx: 250.02. Insulin: Yes Normal [facility] CNTHERAPYon 12-29-2021 CNTHERAPY OT/PT/Speech Visit (PTWS) TASNEEM BATISTA ([id number]) 1945 F Date Time Provider Department 12/29/21 9:15 AM CHUCHO YUAN PTPHOEBE Date Time Provider Department Center 12/29/2021 9:15 AM [id number], BRENT PTWS Nahomy You Reason for Visit: Physical Therapy [503] Primary Visit Diagnosis:Radiculopat hy, cervical region [M54.12] Other Visit Diagnosis:Spinal stenosis, lumbar region, without neurogenic claudication [M48.061] Allergies As of Date: 12/29/2021 Noted Allergy Reaction CONTRAST DYE 05/09/2011 14 - Other: See Comments Comments: Face flushing and redness PENICILLINS 08/17/2009 2 - Rash SULFA (SULFONAMIDE ANTIBIOTICS) 08/17/2009 2 - Rash VICODIN (HYDROCODONE-ACETAMIN OPHE*08/17/2009 5 - Intolerance Date Reviewed: 05/16/2016 Reviewed by: Krissy Mccartney LPN - Fully Assessed Prescriptions as of 12/29/2021 - rosuvastatin (CRESTOR) 40 mg tablet Take 40 mg by mouth once daily. - losartan (COZAAR) 50 mg tablet Take 50 mg by mouth once daily. - oxybutynin ER (DITROPAN XL) 10 mg 24 hr tablet Take 10 mg by mouth once daily. - Insulin Lispro, Human, (HUMALOG KWIKPEN) 100 unit/mL inpn Use 5 units with each meal - ketoconazole (NIZORAL) 2 % shampoo Apply 1 application to affected area once daily as needed. - cetirizine (ZYRTEC) 10 mg tablet Take 1 tablet by mouth once daily. - insulin glargine (LANTUS) 100 unit/mL (3 mL) inpn 10-12 Units daily at bedtime. - gabapentin (NEURONTIN) 300 mg capsule Take 1 capsule by mouth daily at bedtime. - lisinopril (PRINIVIL) 10 mg tablet Take 1 tablet by mouth once daily. - blood sugar diagnostic (AnagearTOUCH ULTRA TEST) test strip Use as instructed. Tests blood sugars 5 times a day. Dx: 250.01. - atorvastatin (LIPITOR) 40 mg tablet Take 1 tablet by mouth once daily. - insulin needles, DISPOSABLE, (PEN NEEDLE) 31 gauge x 5/16 ndle Use one needle per dose. 4 per day. - Cholecalciferol, Vitamin D3, 1,000 unit cap Take 2 capsules by mouth once daily. - Lancets (ONE TOUCH DELICA) lancets Test blood sugar(s) 4 daily. Dx: 250.02. Insulin: Yes Normal [facility] CNTHERAPYon 12-21-2021 CNTHERAPY OT/PT/Speech Visit (PTWS) TASNEEM BATISTA ([id number]) 1945 F Date Time Provider Department 12/21/21 10:00 AM CHUCHO YUAN PTWS Date Time Provider Department Center 12/21/2021 10:00 AM [id number], BRENT PTWS Nahomy You Reason for Visit: Physical Therapy [503] Primary Visit Diagnosis:Radiculopat hy, cervical region [M54.12] Other Visit Diagnosis:Spinal stenosis, lumbar region, without neurogenic claudication [M48.061] Allergies As of Date: 12/21/2021 Noted Allergy Reaction CONTRAST DYE 05/09/2011 14 - Other: See Comments Comments: Face flushing and redness PENICILLINS 08/17/2009 2 - Rash SULFA (SULFONAMIDE ANTIBIOTICS) 08/17/2009 2 - Rash VICODIN (HYDROCODONE-ACETAMIN OPHE*08/17/2009 5 - Intolerance Date Reviewed: 05/16/2016 Reviewed by: Krissy Mccartney LPN - Fully Assessed Prescriptions as of 12/21/2021 - rosuvastatin (CRESTOR) 40 mg tablet Take 40 mg by mouth once daily. - losartan (COZAAR) 50 mg tablet Take 50 mg by mouth once daily. - oxybutynin ER (DITROPAN XL) 10 mg 24 hr tablet Take 10 mg by mouth once daily. - Insulin Lispro, Human, (HUMALOG KWIKPEN) 100 unit/mL inpn Use 5 units with each meal - ketoconazole (NIZORAL) 2 % shampoo Apply 1 application to affected area once daily as needed. - cetirizine (ZYRTEC) 10 mg tablet Take 1 tablet by mouth once daily. - insulin glargine (LANTUS) 100 unit/mL (3 mL) inpn 10-12 Units daily at bedtime. - gabapentin (NEURONTIN) 300 mg capsule Take 1 capsule by mouth daily at bedtime. - lisinopril (PRINIVIL) 10 mg tablet Take 1 tablet by mouth once daily. - blood sugar diagnostic (AnagearTOUCH ULTRA TEST) test strip Use as instructed. Tests blood sugars 5 times a day. Dx: 250.01. - atorvastatin (LIPITOR) 40 mg tablet Take 1 tablet by mouth once daily. - insulin needles, DISPOSABLE, (PEN NEEDLE) 31 gauge x 5/16 ndle Use one needle per dose. 4 per day. - Cholecalciferol, Vitamin D3, 1,000 unit cap Take 2 capsules by mouth once daily. - Lancets (ONE TOUCH DELICA) lancets Test blood sugar(s) 4 daily. Dx: 250.02. Insulin: Yes Normal [facility] CNTHERAPYon 12-15-2021 CNTHERAPY OT/PT/Speech Visit (PTWS) TASNEEM BATISTA ([id number]) 1945 F Date Time Provider Department 12/15/21 10:45 AM CHUCHO YUAN PTPHOEBE Date Time Provider Department Center 12/15/2021 10:45 AM [id number], BRENT PTWS [place] Reason for Visit: Physical Therapy [503] Primary Visit Diagnosis:Radiculopat hy, cervical region [M54.12] Other Visit Diagnosis:Spinal stenosis, lumbar region, without neurogenic claudication [M48.061] Allergies As of Date: 12/15/2021 Noted Allergy Reaction CONTRAST DYE 05/09/2011 14 - Other: See Comments Comments: Face flushing and redness PENICILLINS 08/17/2009 2 - Rash SULFA (SULFONAMIDE ANTIBIOTICS) 08/17/2009 2 - Rash VICODIN (HYDROCODONE-ACETAMIN OPHE*08/17/2009 5 - Intolerance Date Reviewed: 05/16/2016 Reviewed by: Krissy Mccartney LPN - Fully Assessed Prescriptions as of 12/15/2021 - rosuvastatin (CRESTOR) 40 mg tablet Take 40 mg by mouth once daily. - losartan (COZAAR) 50 mg tablet Take 50 mg by mouth once daily. - oxybutynin ER (DITROPAN XL) 10 mg 24 hr tablet Take 10 mg by mouth once daily. - Insulin Lispro, Human, (HUMALOG KWIKPEN) 100 unit/mL inpn Use 5 units with each meal - ketoconazole (NIZORAL) 2 % shampoo Apply 1 application to affected area once daily as needed. - cetirizine (ZYRTEC) 10 mg tablet Take 1 tablet by mouth once daily. - insulin glargine (LANTUS) 100 unit/mL (3 mL) inpn 10-12 Units daily at bedtime. - gabapentin (NEURONTIN) 300 mg capsule Take 1 capsule by mouth daily at bedtime. - lisinopril (PRINIVIL) 10 mg tablet Take 1 tablet by mouth once daily. - blood sugar diagnostic (AnagearTOUCH ULTRA TEST) test strip Use as instructed. Tests blood sugars 5 times a day. Dx: 250.01. - atorvastatin (LIPITOR) 40 mg tablet Take 1 tablet by mouth once daily. - insulin needles, DISPOSABLE, (PEN NEEDLE) 31 gauge x 5/16 ndle Use one needle per dose. 4 per day. - Cholecalciferol, Vitamin D3, 1,000 unit cap Take 2 capsules by mouth once daily. - Lancets (ONE TOUCH DELICA) lancets Test blood sugar(s) 4 daily. Dx: 250.02. Insulin: Yes Normal 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 - losartan (COZAAR) 50 mg tablet Take 50 mg by mouth once daily. - oxybutynin ER (DITROPAN XL) 10 mg 24 hr tablet Take 10 mg by mouth once daily. - Insulin Lispro, Human, (HUMALOG KWIKPEN) 100 unit/mL inpn Use 5 units with each meal - ketoconazole (NIZORAL) 2 % shampoo Apply 1 application to affected area once daily as needed. - cetirizine (ZYRTEC) 10 mg tablet Take 1 tablet by mouth once daily. - insulin glargine (LANTUS) 100 unit/mL (3 mL) inpn 10-12 Units daily at bedtime. - gabapentin (NEURONTIN) 300 mg capsule Take 1 capsule by mouth daily at bedtime. - lisinopril (PRINIVIL) 10 mg tablet Take 1 tablet by mouth once daily. - blood sugar diagnostic (GPNX ULTRA TEST) test strip Use as instructed. Tests blood sugars 5 times a day. Dx: 250.01. - atorvastatin (LIPITOR) 40 mg tablet Take 1 tablet by mouth once daily. - insulin needles, DISPOSABLE, (PEN NEEDLE) 31 gauge x 5/16 ndle Use one needle per dose. 4 per day. - Cholecalciferol, Vitamin D3, 1,000 unit cap Take 2 capsules by mouth once daily. - Lancets (ONE TOUCH DELICA) lancets Test blood sugar(s) 4 daily. Dx: 250.02. Insulin: Yes Letter Text Normal [facility] XR LUMBAR 2V AP/LATon 2021 XR LUMBAR 2V AP/LAT * * *Final Report* * * DATE OF EXAM: Dec 07 2021 11:32AM WOX 5229 - XR LUMBAR 2V AP/LAT / PROCEDURE REASON: multiple diagnoses * * * * Physician Interpretation * * * * Lumbar spine: History: Radiculopathy, cervical region Intervertebral 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 Findings: AP, and lateral views performed. There are five lumbar type vertebra. There is upper lumbar levoscoliosis with prominent curvature of the lower thoracic spine to the RIGHT. Possible loss of height RIGHT side L3 vertebral body with assessment limited by curvature. Multilevel asymmetric disc space narrowing and end endplate spurring. Hypertrophic and sclerotic changes mid and lower lumbar facet joints representing degenerative joint disease. Counting reference: Lumbosacral junction. For the purposes of this report, L4-5 is considered the level of the iliac crest and there are 5 lumbar-type vertebrae. Anatomic Variants: None. IMPRESSION: Thoracolumbar curvature with multilevel degenerative findings. The curvature is greater than on the CT scan of 02/28/2012. [employer] Operator: PSCB Transcribe Date/Time: Dec 07 2021 12:56P Dictated by : ALINA LAURENT MD This examination was interpreted and the report reviewed and electronically signed by: ALINA LAURENT MD on Dec 07 2021 1:00PM EST [id number] Normal [facility] XR LUMBAR LIMITED 2V AP/LATo n 12-07-2021 [facility] XR Lumbar spine AP and Later pablo 12-07-2021 IMPRESSION: Thoracolumbar curvature with multilevel degenerative findings. The curvature is greater than on the CT scan of 02/28/2012. [employer] Operator: PSCB Transcribe Date/Time: Dec 07 2021 12:56P Dictated by : ALINA LAURENT MD This examination was interpreted and the report reviewed and electronically signed by: ALINA LAURENT MD on Dec 07 2021 1:00PM [facility] DIVISION OF RADIOLOGY * * *Final Report* * * DATE OF EXAM: Dec 07 2021 11:32AM WOX 5229 - XR LUMBAR 2V AP/LAT / PROCEDURE REASON: multiple diagnoses * * * * Physician Interpretation * * * * Lumbar spine: History: Radiculopathy, cervical region Intervertebral 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 Findings: AP, and lateral views performed. There are five lumbar type vertebra. There is upper lumbar levoscoliosis with prominent curvature of the lower thoracic spine to the RIGHT. Possible loss of height RIGHT side L3 vertebral body with assessment limited by curvature. Multilevel asymmetric disc space narrowing and end endplate spurring. Hypertrophic and sclerotic changes mid and lower lumbar facet joints representing degenerative joint disease. Counting reference: Lumbosacral junction. For the purposes of this report, L4-5 is considered the level of the iliac crest and there are 5 lumbar-type vertebrae. Anatomic Variants: None. DIVISION OF RADIOLOGY [facility] * * *Final Report* * * DATE OF EXAM: Dec 07 2021 11:32AM WOX 5229 - XR LUMBAR 2V AP/LAT / PROCEDURE REASON: multiple diagnoses * * * * Physician Interpretation * * * * Lumbar spine: History: Radiculopathy, cervical region Intervertebral 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 Findings: AP, and lateral views performed. There are five lumbar type vertebra. There is upper lumbar levoscoliosis with prominent curvature of the lower thoracic spine to the RIGHT. Possible loss of height RIGHT side L3 vertebral body with assessment limited by curvature. Multilevel asymmetric disc space narrowing and end endplate spurring. Hypertrophic and sclerotic changes mid and lower lumbar facet joints representing degenerative joint disease. Counting reference: Lumbosacral junction. For the purposes of this report, L4-5 is considered the level of the iliac crest and there are 5 lumbar-type vertebrae. Anatomic Variants: None. IMPRESSION IMPRESSION: Thoracolumbar curvature with multilevel degenerative findings. The curvature is greater than on the CT scan of 02/28/2012. [employer] Operator: RANDI Transcribe Date/Time: Dec 07 2021 12:56P Dictated by : ALINA LAURENT MD This examination was interpreted and the report reviewed and electronically signed by: ALINA LAURENT MD on Dec 07 2021 1:00PM EST [facility] Radiology Study observation (narrative) [facility] XR Lumbar spine AP and Later alOrdered By: [facility] Provider on 12-07-2021 [facility] CNOVon 12-06-2021 CNOV Office Visit (SPMEST ) TASNEEM BATISTA ([id number]) 1945 F Date Time Provider Department 12/06/21 12:30 PM FRANCK HALL SPMEST During your visit today, we recorded the following information about you: Weight Height 66.7 kg 1.6 m Franck Hall DO 12/08/2021 12:11 PM Signed Spine Care Path Radicular Leg Pain - [...] - TOTAL ABDOMINAL HYSTERECT W/WO RMVL TUBE O (more content not included)... Normal [facility] .GFRon 02-11-2019 GFR 76 ml/min/1.73sqm Normal [facility] ([place]) Comment on above: Result Comment: GFR Population mean for , Non- Americans Ages 20-29 = 116 mL/min/1.73 sq.m. Ages 30-39 = 107 mL/min/1.73 sq.m. Ages 40-49 = 99 mL/min/1.73 sq.m. Ages 50-59 = 93 mL/min/1.73 sq.m. Ages 60-69 = 85 mL/min/1.73 sq.m. Ages 70+ = 75 mL/min/1.73 sq.m. Chronic Kidney Disease: Less than 60 mL/min/1.73 square meters End Stage Renal Disease: Less than 15 mL/min/1.73 square meters Performed By: #### B MP, GFR, LIPID #### [place] [address] GFR Non- 63 ml/min/1.73sqm Normal [facility] ([place]) Comment on above: Result Comment: GFR Population mean for , Non- Americans Ages 20-29 = 116 mL/min/1.73 sq.m. Ages 30-39 = 107 mL/min/1.73 sq.m. Ages 40-49 = 99 mL/min/1.73 sq.m. Ages 50-59 = 93 mL/min/1.73 sq.m. Ages 60-69 = 85 mL/min/1.73 sq.m. Ages 70+ = 75 mL/min/1.73 sq.m. Chronic Kidney Disease: Less than 60 mL/min/1.73 square meters End Stage Renal Disease: Less than 15 mL/min/1.73 square meters Performed By: #### B MP, GFR, LIPID #### [place] [id number] BMP 02-11-2019 Calcium mass conc 9.4 mg/dL Normal 8.4-10.2 [facility] ([place]) Comment on above: Performed By: #### B MP, GFR, LIPID #### [place] [id number] Chloride molar conc 104 mmol/L Normal 98-107 [facility] ([place]) Comment on above: Performed By: #### B MP, GFR, LIPID #### [place] [address] CO2 molar conc 28 mmol/L Normal 23-31 [facility] ([place]) Comment on above: Performed By: #### B MP, GFR, LIPID #### [place] [address] Creatinine mass conc 0.88 mg/dL Normal 0.55-1.02 [facility] ([place]) Comment on above: Performed By: #### B MP, GFR, LIPID #### [place] [address] Electrolyte Balance 9.0 mEq/L Normal [facility] ([place]) Comment on above: Performed By: #### B MP, GFR, LIPID #### [place] [address] Glucose mass conc 160 mg/dL High 83-110 [facility] ([place]) Comment on above: Performed By: #### B MP, GFR, LIPID #### [address] [address] Potassium molar conc 4.9 mmol/L Normal 3.5-5.1 [facility] ([place]) Comment on above: Performed By: #### B MP, GFR, LIPID #### [address] [address] Sodium molar conc 141 mmol/L Normal 136-145 [facility] ([place]) Comment on above: Performed By: #### B MP, GFR, LIPID #### [address] [address] Urea nitrogen mass conc 31 mg/dL High 7-18 [facility] ([place]) Comment on above: Performed By: #### B MP, GFR, LIPID #### [address] [address] Urea nitrogen/Creatinine mass ratio 35 ratio High 7- [facility] ([place]) Comment on above: Performed By: #### B MP, GFR, LIPID #### [address] [address] LIPIDon 02-11-2019 Cholesterol in HDL mass conc 68 mg/dL High 40-60 [facility] ([place]) Comment on above: Performed By: #### B MP, GFR, LIPID #### [address] [address] Cholesterol in LDL mass conc 125 mg/dL Normal 0-130 [facility] ([place]) Comment on above: Performed By: #### B MP, GFR, LIPID #### [address] [address] Cholesterol mass conc 206 mg/dL High 0-200 [facility] ([place]) Comment on above: Result Comment: Chol esterol Reference Interval: Less than 200 Desirable 200-239 Borderline high risk 240 and above High risk Performed By: #### B MP, GFR, LIPID #### [address] [address] Triglyceride mass conc 66 mg/dL Normal 0-150 [facility] ([place]) Comment on above: Result Comment: Trig lyceride Reference Interval: Less than 150 Normal 150-199 Borderline high risk 200-499 High risk 500 or higher Very high risk Performed By: #### B MP, GFR, LIPID #### [place] [address] SURGICAL PATHOLOGYon 01-28-2 019 SURGICAL PATHOLOGY Specimen #: [id number] Submitting Physician: Unknown Clinician ([facility]) FINAL DIAGNOSIS A. Skin, left lower cheek, shave biopsy - Actinic keratosis, excoriated. B. Skin, right upper outer shoulder, shave biopsy - Invasive well-differentiated squamous cell carcinoma. KEISHA/ZELALEM/shawn/01/30/19 Liset Phillips M.D., Ph.D. (Electronic Signature) ____ SPECIMEN SUBMITTED A: SKIN, LEFT LOWER CHEEK, SHAVE BIOPSY B: SKIN, RIGHT UPPER OUTER SHOULDER, SHAVE BIOPSY CLINICAL DATA A: R/O BCC/SCC (NS NON-HEALING TRAUMA) B: R/O SCC GROSS DESCRIPTION A. Received in formalin is a 0.7 x 0.4 x 0.1 cm shave of skin. On the skin surface is a 0.3 cm, yellow-brown slightly depressed area. The specimen is not sectioned. Totally submitted in formalin in one cassette. B. Received in formalin is a 0.9 x 0.7 x 0.2 cm shave of skin. On the skin surface is a 0.4 cm, arango-white slightly elevated area. The specimen is bisected. Totally submitted in formalin in one cassette. Gross examination performed at [facility], [address] [place] [id number] V[place] 01/29/2019 10:22:32 AM Date of Report: 01/30/2019 Date of Procedure: 01/28/2019 Date of Receipt: 01/28/2019 Submitted by: Unknown Clinician ([facility]) Location: Diagnostic interpretation performed at [facility], [address] [place] [address]. CLIA Number: [id number] Normal [facility] Reference Lab Comment on above: Performed By: #### S #### See report for performing lab information. Lab Report: Comprehensive Wi tabolic Profilon 08-01-2017 Alanine aminotransferase (ALT) 60 U/L Invalid Interpretation Code 12-78 [facility] Work Phone: Albumin 3.6 g/dL Invalid Interpretation Code 3.4-5.0 [facility] Work Phone: Albumin/Globulin Ratio 1.2 {ratio} Invalid Interpretation Code 0.9-2.4 [facility] Work Phone: Alkaline phosphatase (ALP) 41 U/L Low 45-117 [facility] Work Phone: Anion gap 8 mmol/L Invalid Interpretation Code 5-15 [facility] Work Phone: Aspartate aminotransferase (AST) 48 U/L High 15-37 [facility] Work Phone: Bilirubin (total) 0.50 mg/dL Invalid Interpretation Code 0.20-1.00 [facility] Work Phone: BUN/Creatinine Ratio 38.1 RATIO High 10-20 [facility] Work Phone: Calcium 8.8 mg/dL Invalid Interpretation Code 8.5-10.1 [facility] Work Phone: Chloride 106 mmol/L Invalid Interpretation Code 98-107 [facility] Work Phone: CO2 28.0 mmol/L Invalid Interpretation Code 21.0-32.0 [facility] Work Phone: Creatinine 0.89 mg/dL Invalid Interpretation Code 0.55-1.02 [facility] Work Phone: eGFR (non-black) 80 mL/min/{1.73_m2} Invalid Interpretation Code >60 [facility] Work Phone: eGFR (non-black) 66 mL/min/{1.73_m2} Invalid Interpretation Code >60 [facility] Work Phone: Globulin 3.0 g/dL Invalid Interpretation Code 2.2-4.2 [facility] Work Phone: Glucose mass conc 76 mg/dL Invalid Interpretation Code 70-110 [facility] Work Phone: Potassium molar conc 4.2 mmol/L Invalid Interpretation Code 3.5-5.1 [facility] Work Phone: Protein 6.6 g/dL Invalid Interpretation Code 6.4-8.2 [facility] Work Phone: Sodium 142 mmol/L Invalid Interpretation Code 136-145 [facility] Work Phone: Urea nitrogen 34 mg/dL High 7-18 [facility] Work Phone: Lab Report: Hemoglobin A1con 08-01-2017 Hemoglobin A1c/Hemoglobin.total mass fraction (Bld) 6.1 % Invalid Interpretation Code 4.2-6.3 [facility] Work Phone: Office Visit: New Pt. visito n 05-29-2017 Documentation of current medications (procedure) Done Invalid Interpretation Code [facility] Work Phone: Fall risk assessment No Invalid Interpretation Code [facility] Work Phone: Tobacco smoking status NHIS Never Invalid Interpretation Code [facility] Work Phone: Tobacco use [facility] Never smoker Invalid Interpretation Code [facility] Work Phone: Lab Report: Lipid Profileon 05-08-2017 Cholesterol 164 mg/dL Invalid Interpretation Code 200 [facility] Work Phone: HDL Cholesterol 73 mg/dL Invalid Interpretation Code [facility] Work Phone: LDL Cholesterol 81 mg/dL Invalid Interpretation Code 0-130 [facility] Work Phone: Triglyceride 50 mg/dL Invalid Interpretation Code [facility] Work Phone: very low density lipoproteins 10 mg/dL Invalid Interpretation Code 5-40 [facility] Work Phone: Lab Report: Microalb:Creat R atio,Random URon 05-08-2017 ACR (microalbumin/creatini ne) ratio 16.1 MG/G CRE Invalid Interpretation Code <30 mg/g CRE [facility] Work Phone: Urine, creatinine 78.80 mg/dL Invalid Interpretation Code NO RANGE EST. [facility] Work Phone: Urine, microalbumin 1.27 mg/dL Invalid Interpretation Code Units converted. See lab report for original value. 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 Good Mcguire MD Work Phone: [facility] 04-22-2025 09:24-0400 Body mass index (BMI) [Ratio] 29 kg/m2 Dr. Good Mcguire MD Work Phone: [facility] 04-22-2025 09:24-0400 Body weight 72.[address] Good Mcguire MD Work Phone: [facility] 04-22-2025 09:24-0400 Diastolic blood pressure 55 mm[Hg] Dr. Good Mcguire MD Work Phone: [facility] 04-22-2025 09:24-0400 Heart rate 70 /min Dr. Good Mcguire MD Work Phone: [facility] 04-22-2025 09:24-0400 Systolic blood pressure 129 mm[Hg] Dr. Good Mcguire MD Work Phone: [facility] 04-17-2025 08:48-0400 Body height 157.[address] Good Mcguire MD Work Phone: [facility] 04-17-2025 08:48-0400 Body mass index (BMI) [Ratio] 29 kg/m2 Dr. Good Mcguire MD Work Phone: [facility] 04-17-2025 08:48-0400 Body weight 72.[address] Good Mcguire MD Work Phone: [facility] 04-17-2025 08:48-0400 Diastolic blood pressure 76 mm[Hg] Dr. Good Mcguire MD Work Phone: [facility] 04-17-2025 08:48-0400 Heart rate 68 /min Dr. Good Mcguire MD Work Phone: [facility] 04-17-2025 08:48-0400 Systolic blood pressure 128 mm[Hg] Dr. Good Mcguire MD Work Phone: [facility] 03-15-2025 10:57-0400 Body temperature 98.1 [degF] Dr. Good Mcguire MD Work Phone: [facility] 03-15-2025 10:57-0400 Diastolic blood pressure 76 mm[Hg] Dr. Good Mcguire MD Work Phone: [facility] 03-15-2025 10:57-0400 Heart rate 81 /min Dr. Good Mcguire MD Work Phone: [facility] 03-15-2025 10:57-0400 Respiratory rate 16 /min Dr. Good Mcguire MD Work Phone: [facility] 03-15-2025 10:57-0400 SaO2% (BldA) [Mass fraction] 100 % Dr. Good Mcguire MD Work Phone: [facility] 03-15-2025 10:57-0400 Systolic blood pressure 128 mm[Hg] Dr. Good Mcguire MD Work Phone: [facility] 02-27-2025 10:33-0400 Body temperature 98.1 [degF] Dr. Good Mcguire MD Work Phone: [facility] 02-27-2025 10:33-0400 Diastolic blood pressure 80 mm[Hg] Dr. Good Mcguire MD Work Phone: [facility] 02-27-2025 10:33-0400 Heart rate 66 /min Dr. Good Mcguire MD Work Phone: [facility] 02-27-2025 10:33-0400 Respiratory rate 16 /min Dr. Good Mcguire MD Work Phone: [facility] 02-27-2025 10:33-0400 SaO2% (BldA) [Mass fraction] 95 % Dr. Good Mcguire MD Work Phone: [facility] 02-27-2025 10:33-0400 Systolic blood pressure 148 mm[Hg] Dr. Good Mcguire MD Work Phone: [facility] 01-21-2025 11:39-0400 Body height 157.[address] Good Mcguire MD Work Phone: [facility] 01-21-2025 11:39-0400 Body mass index (BMI) [Ratio] 29.2 kg/m2 Dr. Good Mcguire MD Work Phone: [facility] 01-21-2025 11:39-0400 Body weight 72.[address] Good Mcguire MD Work Phone: [facility] 01-21-2025 11:39-0400 Diastolic blood pressure 93 mm[Hg] Dr. Good Mcguire MD Work Phone: [facility] 01-21-2025 11:39-0400 Heart rate 68 /min Dr. Good Mcguire MD Work Phone: [facility] 01-21-2025 11:39-0400 SaO2% (BldA) [Mass fraction] 96 % Dr. Good Mcguire MD Work Phone: [facility] 01-21-2025 11:39-0400 Systolic blood pressure 136 mm[Hg] Dr. Good Mcguire MD Work Phone: [facility] 01-12-2025 10:05-0400 Body height 157.[address] Good Mcguire MD Work Phone: [facility] 01-12-2025 10:05-0400 Body mass index (BMI) [Ratio] 29 kg/m2 Dr. Good Mcguire MD Work Phone: [facility] 01-12-2025 10:05-0400 Body temperature 98 [degF] Dr. Good Mcguire MD Work Phone: [facility] 01-12-2025 10:05-0400 Body weight 72.[address] Good Mcguire MD Work Phone: [facility] 01-12-2025 10:05-0400 Diastolic blood pressure 80 mm[Hg] Dr. Good Mcguire MD Work Phone: [facility] 01-12-2025 10:05-0400 Heart rate 85 /min Dr. Good Mcguire MD Work Phone: [facility] 01-12-2025 10:05-0400 Respiratory rate 18 /min Dr. Good Mcguire MD Work Phone: [facility] 01-12-2025 10:05-0400 SaO2% (BldA) [Mass fraction] 96 % Dr. Good Mcguire MD Work Phone: [facility] 01-12-2025 10:05-0400 Systolic blood pressure 140 mm[Hg] Dr. Good Mcguire MD Work Phone: [facility] 09-22-2024 11:38-0500 Body mass index (BMI) [Ratio] 28.7 kg/m2 Dr. Good Mcguire MD Work Phone: [facility] 09-22-2024 11:38-0500 Body weight 71.[address] Good Mcguire MD Work Phone: [facility] 09-22-2024 11:38-0500 Diastolic blood pressure 87 mm[Hg] Dr. Good Mcguire MD Work Phone: [facility] 09-22-2024 11:38-0500 Heart rate 74 /min Dr. Good Mcguire MD Work Phone: [facility] 09-22-2024 11:38-0500 SaO2% (BldA) [Mass fraction] 94 % Dr. Good Mcguire MD Work Phone: [facility] 09-22-2024 11:38-0500 Systolic blood pressure 151 mm[Hg] Dr. Good Mcguire MD Work Phone: [facility] 12-26-2023 11:32-0400 Body height 157.[address] Good Mcguire Work Phone: [facility] 12-26-2023 11:32-0400 Body mass index (BMI) [Ratio] 27.8 kg/m2 Dr. Good Mcguire Work Phone: [facility] 12-26-2023 11:32-0400 Body temperature 98 [degF] Dr. Good Mcguire Work Phone: [facility] 12-26-2023 11:32-0400 Body weight 68.[address] Good Mcguire Work Phone: [facility] 12-26-2023 11:32-0400 Diastolic blood pressure 83 mm[Hg] Dr. Good Mcguire Work Phone: [facility] 12-26-2023 11:32-0400 Heart rate 60 /min Dr. Good Mcguire Work Phone: [facility] 12-26-2023 11:32-0400 Respiratory rate 16 /min Dr. Good Mcguire Work Phone: [facility] 12-26-2023 11:32-0400 SaO2% (BldA) [Mass fraction] 97 % Dr. Good Mcguire Work Phone: [facility] 12-26-2023 11:32-0400 Systolic blood pressure 145 mm[Hg] Dr. Good Mcguire Work Phone: [facility] 11-20-2023 10:30-0400 Body mass index (BMI) [Ratio] 26.4 kg/m2 Dr. Good Mcguire Work Phone: [facility] 11-20-2023 10:30-0400 Body temperature 97.6 [degF] Dr. Good Mcguire Work Phone: [facility] 11-20-2023 10:30-0400 Body weight 67.[address] Good Mcguire Work Phone: [facility] 11-20-2023 10:30-0400 Diastolic blood pressure 72 mm[Hg] Dr. Good Mcguire Work Phone: [facility] 11-20-2023 10:30-0400 Heart rate 71 /min Dr. Good Mcguire Work Phone: [facility] 11-20-2023 10:30-0400 Respiratory rate 16 /min Dr. Good Mcguire Work Phone: [facility] 11-20-2023 10:30-0400 SaO2% (BldA) [Mass fraction] 98 % Dr. Good Mcguire Work Phone: [facility] 11-20-2023 10:30-0400 Systolic blood pressure 122 mm[Hg] Dr. Good Mcguire Work Phone: [facility] 09-26-2023 10:29-0500 Body height 160.[address] Good Mcguire Work Phone: [facility] 09-26-2023 10:29-0500 Body mass index (BMI) [Ratio] 26.6 kg/m2 Dr. Good Mcguire Work Phone: [facility] 09-26-2023 10:29-0500 Body temperature 98.6 [degF] Dr. Good Mcguire Work Phone: [facility] 09-26-2023 10:29-0500 Body weight 68.[address] Good Mcguire Work Phone: [facility] 09-26-2023 10:29-0500 Diastolic blood pressure 90 mm[Hg] Dr. Good Mcguire Work Phone: [facility] 09-26-2023 10:29-0500 Heart rate 80 /min Dr. Good Mcguire Work Phone: [facility] 09-26-2023 10:29-0500 Respiratory rate 16 /min Dr. Good Mcguire Work Phone: [facility] 09-26-2023 10:29-0500 SaO2% (BldA) [Mass fraction] 96 % Dr. Good Mcguire Work Phone: [facility] 09-26-2023 10:29-0500 Systolic blood pressure 156 mm[Hg] Dr. Good Mcguire Work Phone: [facility] 08-01-2023 15:11-0500 Body height 161.3 cm Kasandra Wong MD Work Phone: [facility] 08-01-2023 15:11-0500 Body weight 68.49 kg Kasandra Wong MD Work Phone: [facility] 08-01-2023 15:11-0500 Diastolic blood pressure 89 mm[Hg] Kasandra Wong MD Work Phone: [facility] 08-01-2023 15:11-0500 Heart rate 64 /min Kasandra Wong MD Work Phone: [facility] 08-01-2023 15:11-0500 Systolic blood pressure 175 mm[Hg] Kasandra Wong MD Work Phone: [facility] 07-18-2023 14:06-0500 Body height 160.[address] Good Mcguire Work Phone: [facility] 07-18-2023 14:06-0500 Body mass index (BMI) [Ratio] 27.1 kg/m2 Dr. Good Mcguire Work Phone: [facility] 07-18-2023 14:06-0500 Body temperature 97.9 [degF] Dr. Good Mcguire Work Phone: [facility] 07-18-2023 14:06-0500 Body weight 69.[address] Good Mcguire Work Phone: [facility] 07-18-2023 14:06-0500 Diastolic blood pressure 72 mm[Hg] Dr. Good Mcguire Work Phone: [facility] 07-18-2023 14:06-0500 Heart rate 80 /min Dr. Good Mcguire Work Phone: [facility] 07-18-2023 14:06-0500 Respiratory rate 16 /min Dr. Good Mcguire Work Phone: [facility] 07-18-2023 14:06-0500 SaO2% (BldA) [Mass fraction] 98 % Dr. Good Mcguire Work Phone: [facility] 07-18-2023 14:06-0500 Systolic blood pressure 138 mm[Hg] Dr. Good Mcguire Work Phone: [facility] 06-26-2023 15:34-0400 Diastolic blood pressure 60 mm[Hg] Dr. Good Mcguire Work Phone: [facility] 06-26-2023 15:34-0400 Heart rate 75 /min Dr. Good Mcguire Work Phone: [facility] 06-26-2023 15:34-0400 Respiratory rate 18 /min Dr. Good Mcguire Work Phone: [facility] 06-26-2023 15:34-0400 SaO2% (BldA) [Mass fraction] 95 % Dr. Good Mcguire Work Phone: [facility] 06-26-2023 15:34-0400 Systolic blood pressure 131 mm[Hg] Dr. Good Mcguire Work Phone: [facility] 06-26-2023 14:48-0400 Body height 160.[address] Good Mcguire Work Phone: [facility] 06-26-2023 14:48-0400 Body mass index (BMI) [Ratio] 26.7 kg/m2 Dr. Good Mcguire Work Phone: [facility] 06-26-2023 14:48-0400 Body temperature 97.9 [degF] Dr. Good Mcguire Work Phone: [facility] 06-26-2023 14:48-0400 Body weight 68.[address] Good Mcguire Work Phone: [facility] 06-25-2023 10:36-0400 Body mass index (BMI) [Ratio] 26.5 kg/m2 Dr. Good Mcguire Work Phone: [facility] 06-25-2023 10:36-0400 Body temperature 98 [degF] Dr. Good Mcguire Work Phone: [facility] 06-25-2023 10:36-0400 Body weight 69.[address] Good Mcguire Work Phone: [facility] 06-25-2023 10:36-0400 Diastolic blood pressure 76 mm[Hg] Dr. Good Mcguire Work Phone: [facility] 06-25-2023 10:36-0400 Heart rate 78 /min Dr. Good Mcguire Work Phone: [facility] 06-25-2023 10:36-0400 Respiratory rate 16 /min Dr. Good Mcguire Work Phone: [facility] 06-25-2023 10:36-0400 SaO2% (BldA) [Mass fraction] 97 % Dr. Good Mcguire Work Phone: [facility] 06-25-2023 10:36-0400 Systolic blood pressure 138 mm[Hg] Dr. Good Mcguire Work Phone: [facility] 03-21-2023 10:27-0400 Body height 161.[address] Good Mcguire Work Phone: [facility] 03-21-2023 10:27-0400 Body mass index (BMI) [Ratio] 27.3 kg/m2 Dr. Good Mcguire Work Phone: [facility] 03-21-2023 10:27-0400 Body temperature 98.2 [degF] Dr. Good Mcguire Work Phone: [facility] 03-21-2023 10:27-0400 Body weight 71.[address] Good Mcguire Work Phone: [facility] 03-21-2023 10:27-0400 Diastolic blood pressure 86 mm[Hg] Dr. Good Mcguire Work Phone: [facility] 03-21-2023 10:27-0400 Heart rate 78 /min Dr. Good Mcguire Work Phone: [facility] 03-21-2023 10:27-0400 Respiratory rate 16 /min Dr. Good Mcguire Work Phone: [facility] 03-21-2023 10:27-0400 SaO2% (BldA) [Mass fraction] 94 % Dr. Good Mcguire Work Phone: [facility] 03-21-2023 10:27-0400 Systolic blood pressure 158 mm[Hg] Dr. Good Mcguire Work Phone: [facility] 03-16-2023 09:34-0400 Body mass index (BMI) [Ratio] 27.3 kg/m2 Dr. Good cMguire Work Phone: [facility] 03-16-2023 09:34-0400 Body temperature 95.7 [degF] Dr. Good Mcguire Work Phone: [facility] 03-16-2023 09:34-0400 Body weight 70.[address] Good Mcguire Work Phone: [facility] 03-16-2023 09:34-0400 Diastolic blood pressure 84 mm[Hg] Dr. Good Mcguire Work Phone: [facility] 03-16-2023 09:34-0400 Heart rate 63 /min Dr. Good Mcguire Work Phone: [facility] 03-16-2023 09:34-0400 Respiratory rate 18 /min Dr. Good Mcguire Work Phone: [facility] 03-16-2023 09:34-0400 SaO2% (BldA) [Mass fraction] 99 % Dr. Good Mcguire Work Phone: [facility] 03-16-2023 09:34-0400 Systolic blood pressure 148 mm[Hg] Dr. Good Mcguire Work Phone: [facility] 03-14-2023 09:45-0400 Body height 161.3 cm Kasandra Wong MD Work Phone: [facility] 03-14-2023 09:45-0400 Body weight 71.12 kg Kasandra Wong MD Work Phone: [facility] 03-14-2023 09:45-0400 Diastolic blood pressure 82 mm[Hg] Kasandra Wong MD Work Phone: [facility] 03-14-2023 09:45-0400 Heart rate 66 /min Kasandra Wong MD Work Phone: [facility] 03-14-2023 09:45-0400 Systolic blood pressure 163 mm[Hg] Kasandra Wong MD Work Phone: [facility] 01-01-2023 09:32-0400 Body mass index (BMI) [Ratio] 27 kg/m2 Dr. Good Mcguire Work Phone: [facility] 01-01-2023 09:32-0400 Body temperature 98.1 [degF] Dr. Good Mcguire Work Phone: [facility] 01-01-2023 09:32-0400 Body weight 70.[address] Good Mcguire Work Phone: [facility] 01-01-2023 09:32-0400 Diastolic blood pressure 90 mm[Hg] Dr. Good Mcguire Work Phone: [facility] 01-01-2023 09:32-0400 Heart rate 65 /min Dr. Good Mcguire Work Phone: [facility] 01-01-2023 09:32-0400 Respiratory rate 14 /min Dr. Good Mcguire Work Phone: [facility] 01-01-2023 09:32-0400 SaO2% (BldA) [Mass fraction] 99 % Dr. Good Mcguire Work Phone: [facility] 01-01-2023 09:32-0400 Systolic blood pressure 146 mm[Hg] Dr. Good Mcguire Work Phone: [facility] 12-20-2022 10:45-0400 Body temperature 97.3 [degF] Dr. Good Mcguire Work Phone: [facility] 12-20-2022 10:45-0400 Body weight 70.[address] Good Mcguire Work Phone: [facility] 12-20-2022 10:45-0400 Diastolic blood pressure 78 mm[Hg] Dr. Good Mcguire Work Phone: [facility] 12-20-2022 10:45-0400 Heart rate 75 /min Dr. Good Mcguire Work Phone: [facility] 12-20-2022 10:45-0400 Respiratory rate 16 /min Dr. Good Mcguire Work Phone: [facility] 12-20-2022 10:45-0400 SaO2% (BldA) [Mass fraction] 97 % Dr. Good Mcguire Work Phone: [facility] 12-20-2022 10:45-0400 Systolic blood pressure 140 mm[Hg] Dr. Good Mcguire Work Phone: [facility] 11-10-2022 09:20-0500 Body temperature 98.1 [degF] Dr. Good Mcguire Work Phone: [facility] 11-10-2022 09:20-0500 Diastolic blood pressure 72 mm[Hg] Dr. Good Mcguire Work Phone: [facility] 11-10-2022 09:20-0500 Heart rate 81 /min Dr. Good Mcguire Work Phone: [facility] 11-10-2022 09:20-0500 Respiratory rate 16 /min Dr. Good Mcguire Work Phone: [facility] 11-10-2022 09:20-0500 SaO2% (BldA) [Mass fraction] 100 % Dr. Good Mcguire Work Phone: [facility] 11-10-2022 09:20-0500 Systolic blood pressure 118 mm[Hg] Dr. Good Mcguire Work Phone: [facility] 11-10-2022 07:39-0500 Body height 161.[address] Good Mcguire Work Phone: [facility] 11-10-2022 07:39-0500 Body mass index (BMI) [Ratio] 25.3 kg/m2 Dr. Good Mcguire Work Phone: [facility] 11-10-2022 07:39-0500 Body weight [address] Good Mcguire Work Phone: [facility] 10-05-2022 10:11-0500 Body temperature 97.6 [degF] Dr. Good Mcguire Work Phone: [facility] 10-05-2022 10:11-0500 Body weight 68.[address] Good Mcguire Work Phone: [facility] 10-05-2022 10:11-0500 Diastolic blood pressure 86 mm[Hg] Dr. Good Mcguire Work Phone: [facility] 10-05-2022 10:11-0500 Heart rate 74 /min Dr. Good Mcguire Work Phone: [facility] 10-05-2022 10:11-0500 Respiratory rate 17 /min Dr. Good Mcguire Work Phone: [facility] 10-05-2022 10:11-0500 SaO2% (BldA) [Mass fraction] 98 % Dr. Good Mcguire Work Phone: [facility] 10-05-2022 10:11-0500 Systolic blood pressure 128 mm[Hg] Dr. Good Mcguire Work Phone: [facility] 09-29-2022 09:03-0500 Body height 161.[address] Good Mcguire Work Phone: [facility] 09-29-2022 09:03-0500 Body mass index (BMI) [Ratio] 25.8 kg/m2 Dr. Good Mcguire Work Phone: [facility] 09-29-2022 09:03-0500 Body temperature 96.1 [degF] Dr. Good Mcguire Work Phone: [facility] 09-29-2022 09:03-0500 Body weight 67.[address] Good Mcguire Work Phone: [facility] 09-29-2022 09:03-0500 Diastolic blood pressure 84 mm[Hg] Dr. Good Mcguire Work Phone: [facility] 09-29-2022 09:03-0500 Heart rate 104 /min Dr. Good Mcguire Work Phone: [facility] 09-29-2022 09:03-0500 Respiratory rate 18 /min Dr. Good Mcguire Work Phone: [facility] 09-29-2022 09:03-0500 SaO2% (BldA) [Mass fraction] 99 % Dr. Good Mcguire Work Phone: [facility] 09-29-2022 09:03-0500 Systolic blood pressure 146 mm[Hg] Dr. Good Mcguire Work Phone: [facility] 09-20-2022 11:04-0500 Body mass index (BMI) [Ratio] 26.4 kg/m2 Dr. Good Mcguire Work Phone: [facility] 09-20-2022 11:04-0500 Body temperature 93.8 [degF] Dr. Good Mcguire Work Phone: [facility] 09-20-2022 11:04-0500 Body weight 68.[address] Good Mcguire Work Phone: [facility] 09-20-2022 11:04-0500 Diastolic blood pressure 81 mm[Hg] Dr. Good Mcguire Work Phone: [facility] 09-20-2022 11:04-0500 Heart rate 54 /min Dr. Good Mcguire Work Phone: [facility] 09-20-2022 11:04-0500 Respiratory rate 18 /min Dr. Good Mcguire Work Phone: [facility] 09-20-2022 11:04-0500 SaO2% (BldA) [Mass fraction] 97 % Dr. Good Mcguire Work Phone: [facility] 09-20-2022 11:04-0500 Systolic blood pressure 161 mm[Hg] Dr. Good Mcguire Work Phone: [facility] 06-28-2022 09:18-0400 Body mass index (BMI) [Ratio] 26.3 kg/m2 Dr. Good Mcguire Work Phone: [facility] 06-28-2022 09:18-0400 Body temperature 96.3 [degF] Dr. Good Mcguire Work Phone: [facility] 06-28-2022 09:18-0400 Body weight 68.[address] Good Mcguire Work Phone: [facility] 06-28-2022 09:18-0400 Diastolic blood pressure 80 mm[Hg] Dr. Good Mcguire Work Phone: [facility] 06-28-2022 09:18-0400 Heart rate 68 /min Dr. Good Mcguire Work Phone: [facility] 06-28-2022 09:18-0400 Respiratory rate 16 /min Dr. Good Mcguire Work Phone: [facility] 06-28-2022 09:18-0400 SaO2% (BldA) [Mass fraction] 98 % Dr. Good Mcguire Work Phone: [facility] 06-28-2022 09:18-0400 Systolic blood pressure 140 mm[Hg] Dr. Good Mcguire Work Phone: [facility] 06-21-2022 10:50-0400 Body height 161.[address] Good Mcguire Work Phone: [facility] Work Phone: 06-21-2022 10:50-0400 Body mass index (BMI) [Ratio] 25.3 kg/m2 Dr. Good Mcguire Work Phone: [facility] 06-21-2022 10:50-0400 Body temperature 96 [degF] Dr. Good Mcguire Work Phone: [facility] 06-21-2022 10:50-0400 Body weight 65.[address] Good Mcguire Work Phone: [facility] 06-21-2022 10:50-0400 Diastolic blood pressure 80 mm[Hg] Dr. Good Mcguire Work Phone: [facility] 06-21-2022 10:50-0400 Heart rate 60 /min Dr. Good Mcguire Work Phone: [facility] 06-21-2022 10:50-0400 Respiratory rate 18 /min Dr. Good Mcguire Work Phone: [facility] 06-21-2022 10:50-0400 SaO2% (BldA) [Mass fraction] 96 % Dr. Good Mcguire Work Phone: [facility] 06-21-2022 10:50-0400 Systolic blood pressure 135 mm[Hg] Dr. Good Mcguire Work Phone: [facility] 03-22-2022 10:51-0400 Body mass index (BMI) [Ratio] 25.9 kg/m2 Dr. Good Mcguire Work Phone: [facility] Work Phone: 03-22-2022 10:51-0400 Body temperature 96.3 [degF] Dr. Good Mcguire Work Phone: [facility] Work Phone: 03-22-2022 10:51-0400 Body weight 67.[address] Good Mcguire Work Phone: [facility] Work Phone: 03-22-2022 10:51-0400 Diastolic blood pressure 70 mm[Hg] Dr. Good Mcguire Work Phone: [facility] Work Phone: 03-22-2022 10:51-0400 Heart rate 70 /min Dr. Good Mcguire Work Phone: [facility] Work Phone: 03-22-2022 10:51-0400 Respiratory rate 18 /min Dr. Good Mcguire Work Phone: [facility] Work Phone: 03-22-2022 10:51-0400 SaO2% (BldA) [Mass fraction] 98 % Dr. Good Mcguire Work Phone: [facility] Work Phone: 03-22-2022 10:51-0400 Systolic blood pressure 114 mm[Hg] Dr. Good Mcguire Work Phone: [facility] Work Phone: 03-14-2022 09:39-0400 Body mass index (BMI) [Ratio] 26.4 kg/m2 Dr. Good Mcguire Work Phone: [facility] Work Phone: 03-14-2022 09:39-0400 Body temperature 98.6 [degF] Dr. Good Mcguire Work Phone: [facility] Work Phone: 03-14-2022 09:39-0400 Body weight 68.[address] Good Mcguire Work Phone: [facility] Work Phone: 03-14-2022 09:39-0400 Diastolic blood pressure 64 mm[Hg] Dr. Good Mcguire Work Phone: [facility] Work Phone: 03-14-2022 09:39-0400 Heart rate 71 /min Dr. Good Mcguire Work Phone: [facility] Work Phone: 03-14-2022 09:39-0400 Respiratory rate 14 /min Dr. Good Mcguire Work Phone: [facility] Work Phone: 03-14-2022 09:39-0400 SaO2% (BldA) [Mass fraction] 97 % Dr. Good Mcguire Work Phone: [facility] Work Phone: 03-14-2022 09:39-0400 Systolic blood pressure 114 mm[Hg] Dr. Good Mcguire Work Phone: [facility] Work Phone: 01-31-2022 11:40-0400 Body height 161.3 cm Franck Hall DO Work Phone: [facility] 01-31-2022 11:40-0400 Body weight 67.13 kg Franck Gateschary DO Work Phone: [facility] 01-16-2022 08:15-0400 Body height 161.3 cm Eleno Reyna MD Work Phone: [facility] 01-16-2022 08:15-0400 Body weight 67.59 kg Eleno Reyna MD Work Phone: [facility] 12-13-2021 10:00-0400 Diastolic blood pressure 82 mm[Hg] Chucho Golias PT Work Phone: [facility] 12-13-2021 10:00-0400 Systolic blood pressure 134 mm[Hg] Chucho Golias PT Work Phone: [facility] 12-06-2021 12:31-0400 Body height 160 cm Franck Hall DO Work Phone: [facility] 12-06-2021 12:31-0400 Body weight 66.68 kg Franckjohnny Hensleyry DO Work Phone: [facility] 05-29-2017 09:37-0400 BMI (Body Mass Index) 24.71 kg/m2 Jenny Laboy NP [facility] Work Phone: 05-29-2017 09:37-0400 Body Temperature 97.8 [degF] Jenny Laboy NP [facility] Work Phone: 05-29-2017 09:37-0400 BP Diastolic 80 mm[Hg] Jenny Laboy NP [facility] Work Phone: 05-29-2017 09:37-0400 BP Systolic 126 mm[Hg] Jenny Laboy NP [facility] Work Phone: 05-29-2017 09:37-0400 Height 162.56 cm Jenny Laboy NP [facility] Work Phone: 05-29-2017 09:37-0400 Pulse (Heart Rate) 57 /min Jenny Laboy NP [facility] Work Phone: 05-29-2017 09:37-0400 Respiratory Rate 16 /min Jenny Laboy NP [facility] Work Phone: 05-29-2017 09:37-0400 Weight 65.32 kg Jenny Laboy NP [facility] Work Phone: 11-08-2016 10:26-0500 Body Temperature 98.1 [degF] Jenny Laboy NP [facility] Work Phone: 11-08-2016 10:26-0500 BSA (Body Surface Area) 1.69 m2 Jenny Laboy NP [facility] Work Phone: 11-08-2016 10:26-0500 Height 160.02 cm Jenny Laboy NP [facility] Work Phone: 11-08-2016 10:26-0500 Weight 65.95 kg Jenny Laboy NP [facility] Work Phone: Encounters Encounter Date Encounter Type Care Provider Facility Start: 05-02-2025 ambulatory Courtney Rivera Facility: [facility] Start: 04-22-2025 End: 04-22-[address] Good Mcguire MD Work Phone: -[facility] Start: 04-22-2025 End: 04-22-[address] Courtney Rivera MD -[facility] Work Phone: Start: 04-17-2025 End: 04-17-[address] Courtney Rivera MD -[facility] Work Phone: Start: 04-17-2025 End: 04-17-[address] Good Mcguire MD Work Phone: -[facility] Start: 03-15-2025 End: 03-15-[address] Good Mcguire MD Work Phone: -[facility] Start: 03-15-2025 End: 03-15-2025 Patient encounter procedure Justina Haney AL -[facility] Work Phone: Start: 03-15-2025 End: 03-15-2025 ambulatory Good Mcguire Facility:[facility] Start: 03-03-2025 Non-patient / Non-visit Dr. Vladislav Rivera MD -[facility] Work Phone: Start: 02-27-2025 End: 02-27-2025 Patient encounter procedure Bryan Schrader AL -[facility] Work Phone: Start: 02-27-2025 End: 02-27-[address] Good Mcguire MD Work Phone: [facility] Start: 01-21-2025 End: 01-21-2025 Patient encounter procedure Nisreen GALLO -[facility] Work Phone: Start: 01-21-2025 End: 01-21-[address] Good Mcguire MD Work Phone: [facility] Work Phone: Start: 01-12-2025 Encounter for genera l adult medical examination without abnormal findings Good Mcguire [facility] Start: 01-12-2025 End: 01-12-[address] Good Mcguire MD -[facility] Work Phone: Start: 01-12-2025 End: 01-12-[address] Good Mcguire MD Work Phone: [facility] Work Phone: Start: 01-12-2025 End: 01-12-[facility] Start: 09-22-2024 End: 09-22-2024 Patient encounter procedure Nisreen GALLO -[facility] Work Phone: Start: 09-22-2024 End: 09-22-[facility] Start: 08-29-2024 End: 08-29-[facility] Start: 07-27-2024 End: 07-27-2024 [facility] Start: 07-14-2024 End: 07-14-2024 [facility] Start: 07-14-2024 End: 07-14-2024 [facility] Start: 06-19-2024 End: 06-19-2024 [facility] Start: 12-27-2023 End: 12-27-[address] Good Mcguire Work Phone: [facility] Work Phone: Start: 12-27-2023 End: 12-27-[address] Good Mcguire Work Phone: [facility]-Occupational Therapy Work Phone: Start: 12-26-2023 End: 12-26-[address] Good Mcguire Work Phone: [facility] Endocrinology Work Phone: Start: 12-10-2023 End: 12-10-[address] Good Mcguire Work Phone: [facility] Work Phone: Start: 11-20-2023 End: 11-20-[address] Good Mcguire Work Phone: [facility] Internal Medicine Work Phone: Start: 10-02-2023 End: 10-02-[address] Good Mcguire Work Phone: [facility] Work Phone: Start: 10-02-2023 End: 10-02-[address] Good Mcguire Work Phone: [facility]-Outpatient Bone Densitometry Work Phone: Start: 09-26-2023 End: 09-26-[address] Good Mcguire Work Phone: [facility] Endocrinology Work Phone: Start: 08-28-2023 End: 08-28-[address] Good Mcguire Work Phone: [facility] Work Phone: Start: 08-28-2023 End: 08-28-[address] Good Mcguire Work Phone: [facility]patient [facility] Densitometry Work Phone: Start: 08-09-2023 Telephone encounter Kasandra donahue MD Work Phone: [facility] Comment on above: Future Appointment Start: 08-01-2023 End: 08-01-2023 ambulatory GOOD MCGUIRE [facility] Start: 08-01-2023 End: 08-01-2023 Patient encounter procedure Kasandra Wong MD Work Phone: [facility] Comment on above: Paraesophageal herni a (Primary Dx); Gastroesophageal reflux disease without esophagitis; Hyperlipidemia, unspecified hyperlipidemia type; Type 2 diabetes mellitus with other specified complication, with long-term current use of insulin (HCC) Start: 07-25-2023 Telephone encounter Kasandra donahue MD Work Phone: [facility] Comment on above: Future Appointment Start: 07-18-[address] Jordon Mcguire Work Phone: [facility] Start: 07-18-2023 End: 07-18-2023 Encounter for general adult medical examination without abnormal findings Dr. Good Mcguire Work Phone: [facility] Start: 07-18-2023 End: 07-18-[address] Good Mcguire Work Phone: [facility] Work Phone: Start: 07-18-2023 End: 07-18-[address] Good Mcguire Work Phone: [facility] Work Phone: Start: 07-16-2023 End: 07-16-[address] Good Mcguire Work Phone: [facility] Work Phone: Start: 07-16-2023 End: 07-16-[address] Good Mcguire Work Phone: [facility]atory, [facility] Start: 06-26-2023 Non-patient / Non-visit Dr. Mehrdad Mcguire Work Phone: [facility] Start: 06-26-2023 End: 06-26-2023 Emergency department patient visit Dr. Good Mcguire Work Phone: [facility]Emergency Department Work Phone: Start: 06-25-2023 End: 06-25-[address] Good Mcguire Work Phone: [facility] Endocrinology Work Phone: Start: 06-11-2023 ambulatory UNKNOWN PROVIDER Facili ty:[facility] Start: 04-13-2023 End: 04-13-2023 ambulatory [facility] Start: 03-27-2023 End: 03-27-[address] Good Mcguire Work Phone: [facility] Work Phone: Start: 03-27-2023 End: 03-27-[address] Good Mcguire Work Phone: [facility], [facility] Work Phone: Start: 03-21-2023 End: 03-21-[address] Good Mcguire Work Phone: [facility] Endocrin[facility] Work Phone: Start: 03-21-2023 End: 03-21-2023 Non-patient / Non-visit Dr. Good Mcguire Work Phone: [facility] Start: 03-21-2023 End: 03-21-[address] Good Mcguire Work Phone: [facility] Work Phone: Start: 03-21-2023 End: 03-21-[address] [facility] Work [facility]: Start: 03-16-2023 End: 03-16-[address] Good Mcguire Work Phone: [facility] Work Phone: Start: 03-14-2023 Telephone encounter Kasandra donahue MD Work Phone: [facility] Comment on above: Appointment (Medardo petersen) Start: 03-14-2023 End: 03-15-2023 ambulatory [facility] Facility:[facility] Start: 03-14-2023 End: 03-14-2023 [facility] Start: 03-14-2023 End: 03-14-2023 Patient encounter procedure Kasandra Wong MD Work Phone: [facility] Comment on above: Paraesophageal herni a (Primary Dx); Gastroesophageal reflux disease without esophagitis; Hyperlipidemia, unspecified hyperlipidemia type; Esophageal dysphagia; Swelling of lower extremity; Type 2 diabetes mellitus with other specified complication, with long-term current use of insulin (HCC) Start: 01-01-2023 End: 01-01-[address] Good Mcguire Work Phone: [facility] Work Phone: Start: 12-20-2022 End: 12-20-[address] Good Mcguire Work Phone: [facility] Endocrinology Work Phone: Start: 11-10-2022 Non-patient / Non-visit Dr. Mehrdad Mcguire Work Phone: [facility] Start: 11-10-2022 End: 11-10-2022 Admission to same day surgery center Dr. Good Mcguire Work Phone: [facility]-Endoscopy Start: 11-10-2022 End: 11-10-[address] Good Mcguire Work Phone: [facility] Work Phone: Start: 10-05-2022 End: 10-05-[address] Good Mcguire Work Phone: [facility] Start: 09-29-2022 End: 09-29-[address] Good Mcguire Work Phone: [facility] Work Phone: Start: 09-29-2022 End: 09-29-[address] Good Mcguire Work Phone: [facility] Start: 09-20-2022 End: 09-20-[address] Good Mcguire Work Phone: [facility]in[facility] Start: 06-28-2022 End: 06-28-[address] Good Mcguire Work Phone: [facility] Start: 06-21-2022 End: 06-21-[address] Good Mcguire Work Phone: [facility] Start: 06-20-2022 End: 06-20-[address] Good Mcguire Work Phone: [facility] Work Phone: Start: 06-20-2022 End: 06-20-[address] Good Mcguire Work Phone: [facility], [place] Start: 06-06-2022 End: 06-06-2022 ambulatory GEOFFREY DENISE Facility:[facility] Start: 06-06-2022 End: 06-06-2022 Patient encounter procedure Geoffrey Denise MD Work Phone: [facility] Comment on above: Bursitis of right sh oulder (Primary Dx) Start: 05-30-2022 End: 05-30-2022 ambulatory GEOFFREY DENISE Facility:[facility] Start: 05-30-2022 End: 05-30-2022 Patient encounter procedure Geoffrey Denise MD Work Phone: [facility] Comment on above: Right shoulder pain, unspecified chronicity Start: 05-05-2022 End: 05-05-2022 ambulatory FRANCK HALL Facility:[facility] Start: 05-05-2022 End: 05-05-2022 Patient encounter procedure Franck Hall DO Work Phone: [facility] Comment on above: Cervicalgia (Primary Dx); Right shoulder pain, unspecified chronicity; Radiculopathy, cervical region; Nontraumatic tear of right rotator cuff, unspecified tear extent; Spinal stenosis, lumbar region with neurogenic claudication Start: 03-22-2022 End: 03-22-[address] Good Mcguire Work Phone: [facility] Start: 03-14-2022 End: 03-14-[address] Good Mcguire Work Phone: [facility] Start: 03-13-2022 End: 03-13-2022 ambulatory JAVON TURCIOS Facility:[facility] Start: 03-13-2022 End: 03-13-2022 ambulatory Javon Turcios PT [facility] Comment on above: Tendinopathy of rota tor cuff, right (Primary Dx) Start: 02-27-2022 End: 02-27-2022 ambulatory FRANCK HALL Facility:[facility] Start: 02-27-2022 End: 02-27-2022 ambulatory Yusra Peguero PTA Work Phone: [facility] Comment on above: Tendinopathy of rota tor cuff, right (Primary Dx) Start: 02-24-2022 End: 02-24-2022 ambulatory FRACNK HALL Facility:[facility] Start: 02-24-2022 End: 02-24-2022 Subsequent hospital visit by physician [facility] (I-Stat/1.5t) Work Phone: Radiology Comment on above: Spinal stenosis of l umbar region without neurogenic claudication [M48.061] Start: 02-23-2022 End: 02-23-2022 ambulatory JAVON TURCIOS Facility:[facility] Start: 02-09-2022 End: 02-09-2022 ambulatory Javon Turcios PT [facility] Comment on above: Tendinopathy of rota tor cuff, right (Primary Dx) Start: 01-31-2022 End: 01-31-2022 ambulatory FRANCK HALL Facility:[facility] Start: 01-31-2022 End: 01-31-2022 Patient encounter procedure Franck Hall DO Work Phone: [facility] Comment on above: Tendinopathy of rota tor cuff, right (Primary Dx); Cervicalgia; Radiculopathy, cervical region; Gluteal tendinitis, unspecified laterality; Spinal stenosis of lumbar region without neurogenic claudication; Bladder dysfunction; Spinal stenosis of cervical region Start: 01-20-2022 End: 01-20-2022 ambulatory ELENO REYNA Facility:[facility] Start: 01-16-2022 End: 01-16-2022 ambulatory ELENO REYNA Facility:[facility] Start: 01-16-2022 End: 01-16-2022 Patient encounter procedure Eleno Reyna MD Work Phone: Orthopaedics Comment on above: Acute pain of right shoulder (Primary Dx); Nontraumatic complete tear of right rotator cuff Start: 01-16-2022 End: 01-16-2022 Subsequent hospital visit by physician [facility] Nahomy Sabillon Work Phone: Radiology Comment on above: Right shoulder pain, unspecified chronicity [M25.511] Start: 01-11-2022 End: 01-11-2022 ambulatory Chucho Kwabena PT Work Phone: [facility] Comment on above: Radiculopathy, cervi manda region (Primary Dx); Spinal stenosis, lumbar region, without neurogenic claudication Start: 01-10-2022 Orders Only Eleno Reyna MD Work Phone: Orthopaedics Comment on above: Right shoulder pain, unspecified chronicity (Primary Dx) Start: 01-09-2022 End: 01-09-2022 ambulatory FRANCK HALL Facility:[facility] Start: 01-09-2022 End: 01-09-2022 ambulatory Yusra Peguero [employer] Work Phone: [facility] Comment on above: Radiculopathy, cervi manda region (Primary Dx); Spinal stenosis, lumbar region, without neurogenic claudication Start: 01-04-2022 End: 01-04-2022 ambulatory FRANCK HALL Facility:[facility] Start: 01-02-2022 End: 01-02-2022 ambulatory FRANCK HALL Facility:[facility] Start: 12-29-2021 End: 12-29-2021 ambulatory FRANCK HALL Facility:[facility] Start: 12-29-2021 End: 12-29-2021 ambulatory Chucho Golias PT Work Phone: [facility] Comment on above: Radiculopathy, cervi manda region (Primary Dx); Spinal stenosis, lumbar region, without neurogenic claudication Start: 12-21-2021 End: 12-21-2021 ambulatory Chucho Golias PT Work Phone: [facility] Comment on above: Radiculopathy, cervi manda region (Primary Dx); Spinal stenosis, lumbar region, without neurogenic claudication Start: 12-15-2021 End: 12-15-2021 ambulatory CHUCHO GOLIAS Facility:[facility] Start: 12-15-2021 End: 12-15-2021 ambulatory Chucho Golias PT Work Phone: [facility] Comment on above: Radiculopathy, cervi manda region (Primary Dx); Spinal stenosis, lumbar region, without neurogenic claudication Start: 12-13-2021 End: 12-13-2021 OT/PT/Speech Visit Chucho Golias PT Work Phone: [facility] Comment on above: Radiculopathy, cervi manda region; Intervertebral 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 Start: 12-07-2021 End: 12-07-2021 ambulatory FRANCK HALL Facility:[facility] Start: 12-07-2021 End: 12-07-2021 Subsequent hospital visit by physician [facility] Nahomy Work Phone: Radiology Comment on above: Radiculopathy, cervi manda region [M54.12] Start: 12-06-2021 End: 12-06-2021 ambulatory FRANCK HALL Facility:[facility] Start: 12-06-2021 End: 12-06-2021 Patient encounter procedure Franck Hall DO Work Phone: [facility] Comment on above: Radiculopathy, cervi manda region (Primary Dx); Intervertebral 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 Start: 08-21-2017 Ambulatory Miguel Stallworth Facilit [id number] Start: 06-12-2017 Ambulatory Miguel Stallworth Facilit [id number] Procedures Date Procedure Procedure Detail Performing Clinician Start: 03-16-[address] Steven Mcguire MD Work Phone: Start: 01-12-2025 Vitamin D, 25-hydrox y measurement Dr. Good Mcguire MD Work Phone: Comment on above: Vitamin D StatusDefi ciency: <20 ng/mL (50nmol/L)Insufficiency: 20-30 ng/mL (50-75 nmol/L)Sufficiency: 30-100 ng/mL (75-250 nmol/L)Toxicity: >100 ng/mL (>250 nmol/L) Start: 10-02-2023 Dual energy X-ray absorptiometry Dr. Good Mcguire Work Phone: Start: 08-28-2023 Screening mammography Esteban Mcguire Work Phone: Start: 06-26-2023 Radiologic examinati on of knee Dr. Good Mcguire Work Phone: Start: 03-27-[address] Good Mcguire Work Phone: Start: 11-10-[address] Lissette Mcguire Work Phone: Start: 06-06-2022 Arthrocentesis aspir &/inj major jt/bursa w/o us Geoffrey Denise MD Work Phone: Start: 02-24-2022 End: 02-24-2022 Mri spinal canal cervical w/o contrast elizabethl Franck Hall DO Work Phone: Start: 01-16-2022 Radex shoulder compl ete minimum 2 views Eleno Reyna MD Work Phone: Start: 12-07-2021 Radex spine lumbosac ral 2/3 views Franck Hall DO Work Phone: Start: 08-01-2017 End: 08-01-2017 *CMP Complete Metabolic Panel Jenny Laboy [employer]ER Work Phone: Start: 08-01-2017 End: 08-01-2017 Hemoglobin A1c/Hemoglobin.total in Blood Jenny Laboy [employer]ER Work Phone: Start: 05-29-2017 End: 06-08-2017 DEXA scan Good Orellana Work Phone: Start: 05-29-2017 End: 06-08-2017 Follow Up Appt 3 months Good summers MD Work Phone: Start: 05-29-2017 End: 06-08-2017 Mammogram, screening Good Mcguire MD Work Phone: Start: 05-29-2017 End: 06-08-2017 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 Good dillon MD Work Phone: Start: 02-08-2017 End: 05-08-2017 *CMP Complete Metabolic Panel eJnny Laboy [employer]IC [employer]ER Work Phone: Start: 02-08-2017 End: 05-08-2017 *Microalbumin, Creatine Ratio, rand urine Jenny Laboy [employer]ER[employer]IC [employer]ER Work Phone: Start: 02-08-2017 End: 05-08-2017 Hemoglobin A1c/Hemoglobin.total in Blood Jenny Laboy [employer]ER Work Phone: Start: 02-08-2017 End: 05-08-2017 Lipid 1996 panel - Serum or Plasma Jenny Laboy [employer]IC [employer]ER Work Phone: Start: 11-08-2016 End: 05-08-2017 *CMP Complete Metabolic Panel Jenny Laboy [employer]ER Work Phone: Start: 11-08-2016 End: 05-08-2017 Hemoglobin A1c/Hemoglobin.total in Blood Jenny Laboy [employer]ER Work Phone: Start: 11-08-2016 End: 05-08-2017 Lipid 1996 panel - Serum or Plasma Jenny Laboy NP Work Phone: Start: 02-21-2016 Adult depression scr eening assessment Franck Hall DO Work Phone: Plan of Treatment Date Care Activity Detail Author Start: 01-12-2025 Patient referral [facility] Work Phone: Start: 05-04-2024 Covid-19 Vaccine ( season) Covid-19 Vaccine () [facility] Start: 05-04-2024 Influenza vaccination Influenza Vacc ine (#1) [facility] Start: 12-10-2023 Patient referral [facility] Work Phone: Start: 11-20-2023 Patient referral [facility] Work Phone: Start: 09-03-2023 Advance Directive Discussion Advance Directive Discussion [facility] Start: 06-26-2023 [facility] Start: 05-04-2023 Covid-19 Vaccine ( season) Covid-19 Vaccine ( season) [facility] Start: 05-04-2023 Influenza vaccination C [facility] Start: 01-01-2023 Patient referral [facility] Work Phone: Start: 11-10-2022 Patient discharge [facility] Start: 09-29-2022 Patient referral [facility] Work Phone: Start: 09-03-2022 ADVANCE DIRECTIVE DISCUSSION ADVANCE DIRECTIVE DISCUSSION [facility] Start: 09-03-2022 [facility] Start: 05-04-2022 Influenza vaccination INFLUENZA (#1) [facility] Start: 09-03-2021 ADVANCE DIRECTIVE DISCUSSION ADVANCE DIRECTIVE DISCUSSION [facility] Start: 09-03-2021 DEPRESSION ASSESSMENT [facility] Start: 05-08-2018 Hepatitis B surface antibody level LDL CHOLESTEROL [facility] Start: 02-08-2018 Hepatitis B surface antibody level LDL CHOLESTEROL [facility] Start: 11-06-2017 Hepatitis B screening URINE ALBUMIN:CREATININE RATIO [facility] Start: 11-06-2017 Hepatitis B surface antibody level LDL CHOLESTEROL [facility] Start: 08-29-2017 End: 08-29-2017 Appointment Appointment [facility] Work Phone: Start: 08-23-2017 Glaucoma screening Dilated Retinal E xam [facility] Start: 08-23-2017 Hepatitis C antibody , confirmatory test DILATED RETINAL EXAM [facility] Start: 08-15-2017 3 comp foot exam completed DIABETIC FOOT EXAM [facility] Start: 08-15-2017 Diabetic foot examination Diabetic Foot Exam [facility] Start: 08-08-2017 End: 08-01-2017 *CMP Complete Metabolic Panel *CMP Complete Metabolic Panel [facility] Work Phone: Start: 08-08-2017 End: 08-01-2017 Hemoglobin A1c/Hemoglobin.total mass fraction (Bld) *HgA1C [facility] Work Phone: Start: 08-07-2017 End: 08-07-2017 Appointment Appointment [facility] Work Phone: Start: 05-29-2017 End: 06-08-2017 DEXA scan DEXA scan [facility] Work Phone: Start: 05-29-2017 End: 06-08-2017 Follow Up Appt 3 months Follow Up Appt 3 months [facility] Work Phone: Start: 05-29-2017 End: 06-08-2017 Mammogram, screening Mammogram, Screening, both breasts [facility] Work Phone: Start: 05-29-2017 End: 06-08-2017 Podiatry Referral Podiatry Referral Nancy Farfan DPM, [facility], [address], [address], [place], [address] zanda Work Phone: Start: 05-09-2017 Hemoglobin A1c measurement HbA1C [facility] Start: 05-09-2017 Hemoglobin A1c/Hemoglobin.total in Blood HBA1C [facility] Start: 02-20-2017 Adult depression screening assessment DEPRESSION SCREENING [facility] Start: 02-08-2017 End: 05-08-2017 *CMP Complete Metabolic Panel *CMP Complete Metabolic Panel [facility] Work Phone: Start: 02-08-2017 End: 05-08-2017 *Microalbumin, Creatine Ratio, rand urine *Microalbumin, Creatine Ratio, rand urine [facility] Work Phone: Start: 02-08-2017 End: 05-08-2017 Hemoglobin A1c/Hemoglobin.total mass fraction (Bld) *HgA1C [facility] Work Phone: Start: 02-08-2017 End: 05-08-2017 Lipid panel [AGGREGATE] *Lipid Profile [facility] Work Phone: Start: 11-08-2016 End: 05-08-2017 *CMP Complete Metabolic Panel *CMP Complete Metabolic Panel [facility] Work Phone: Start: 11-08-2016 End: 05-08-2017 Hemoglobin A1c/Hemoglobin.total mass fraction (Bld) *HgA1C [facility] Work Phone: Start: 11-08-2016 End: 05-08-2017 Lipid panel [AGGREGATE] *Lipid Profile [facility] Work Phone: Start: 10-30-2016 End: 10-30-2016 *CMP Complete Metabolic Panel *CMP Complete Metabolic Panel [facility] Work Phone: Start: 10-30-2016 End: 10-30-2016 *Microalbumin, Creatine Ratio, rand urine *Microalbumin, Creatine Ratio, rand urine [facility] Work Phone: Start: 10-30-2016 End: 10-30-2016 Hemoglobin A1c/Hemoglobin.total mass fraction (Bld) *HgA1C [facility] Work Phone: Start: 10-30-2016 End: 10-30-2016 Lipid panel [AGGREGATE] *Lipid Profile [facility] Work Phone: Start: 10-29-2010 SHINGRIX VACCINE (1 of 2) SHINGRIX VACCINE (1 of 2) [facility] Start: 10-29-2010 SHINGRIX VACCINE (2 of 3) SHINGRIX VACCINE (2 of 3) [facility] Start: 09-04-2007 Urine microalbumin profile [facility] Start: 2004 Hepatitis B Vaccine (1 of 3 - Risk 3-dose series) Hepatitis B Vaccine (1 of 3 - Risk 3-dose series) [facility] Start: 2004 RSV Vaccine (1 - 1-d ose 60+ series) RSV Vaccine (1 - 1-dose 60+ series) [facility] Start: 1962 ANNUAL PCP TEAM FOLLOW UP SPECIALIST CLEM DISEASE VISIT ANNUAL PCP TEAM CHRONIC DISEASE VISIT [facility] Start: 1963 Anxiety Screening Anxiety Screening [facility] Start: 1963 Depression Screening Depression Scre ening [facility] Start: 1962 HEPATITIS C SCREENING HEPATITIS C [facility] CBC W Auto Different ial panel - Blood [facility] Colonoscopy [facility] DXA Bone [Mass/Area] Bone density [facility] End: 03-14-2024 ECG COMPLETE ECG COMPLETE ECG Routine Paraesophageal hernia 1 Occurrences starting 03/14/2023 until 03/14/2024 [facility] Work Phone: Comment on above: 1 Occurrences starti ng 03/14/2023 until 03/14/2024 End: 03-14-2024 Esophageal motility study w/interp&rpt MANOMETRY ESOPHAGEAL Endoscopy Routine Esophageal dysphagia 1 Occurrences starting 03/14/2023 until 03/14/2024 [facility] Work Phone: Comment on above: 1 Occurrences starti ng 03/14/2023 until 03/14/2024 Lipid 1996 panel - Serum or Plasma [facility] MG Breast - bilatera l Screening [facility] End: 03-02-2023 Mri spinal canal cervical w/o contrast matrl MRI CERVICAL SPINE WO IVCON Radiology Routine Cervicalgia Radiculopathy, cervical region Bladder dysfunction Spinal stenosis of cervical region 1 Occurrences starting 01/31/2022 until 03/02/2023 [facility] Work Phone: Comment on above: 1 Occurrences starti ng 01/31/2022 until 03/02/2023 End: 03-02-2023 Mri spinal canal lumbar w/o contrast material MRI LUMBAR SPINE WO IVCON Radiology Routine Spinal stenosis of lumbar region without neurogenic claudication 1 Occurrences starting 01/31/2022 until 03/02/2023 [facility] Work Phone: Comment on above: 1 Occurrences starti ng 01/31/2022 until 03/02/2023 Patient Education ED Contusion, Lower Extremity [facility] Work Phone: Patient referral [facility] Work Phone: PT PLAN OF CARE CERTIFICATION PT PLAN OF CARE CERTIFICATION Procedures Routine Radiculopathy, cervical region Intervertebral 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 Ordered: 12/13/2021 [facility] Work Phone: Comment on above: Ordered: 12/13/2021 PT PLAN OF CARE CERTIFICATION PT PLAN OF CARE CERTIFICATION Procedures Routine Tendinopathy of rotator cuff, right Ordered: 02/10/2022 [facility] Comment on above: Ordered: 02/10/2022 End: 04-12-2024 Radiologic exam upr gi trc double contrast study XR UPPER GI ROUTINE DOUBLE CONTRAST/AIR Radiology Routine Esophageal dysphagia 1 Occurrences starting 03/14/2023 until 04/12/2024 [facility] Work Phone: Comment on above: 1 Occurrences starti ng 03/14/2023 until 04/12/2024 Thyroid stimulating hormone measurement [facility] Urine microalbumin/creatinine ratio measurement [facility] US Kidney - bilatera l and Urinary bladder [facility] Vitamin D, 25-hydrox y measurement [facility] End: 02-09-2023 XR SHOULDER GENERAL 3V OR MORE AP/TRUE AP/OTHER RIGHT XR SHOULDER GENERAL 3V OR MORE AP/TRUE AP/OTHER RIGHT Radiology Routine Right shoulder pain, unspecified chronicity 1 Occurrences starting 01/10/2022 until 02/09/2023 [facility] Work Phone: Comment on above: 1 Occurrences starti ng 01/10/2022 until 02/09/2023 [facility] [place] [facility] [place] Immunization Date Immunization Notes Care Provider [facility] 06-20-2024 Covid (Spikevax) Dr. Thaddeus Mcguire MD Work Phone: [facility] 06-20-2024 Influenza High-Dose Quadrivalent Dr. Good Mcguire MD Work Phone: [facility] 06-13-2023 influenza (aIIV4) vaccine, age 65+ yr, quadrivalent, PF (FLUAD QUAD) Kasandra Wong MD Work Phone: [facility] 06-13-2023 respiratory syncytia l virus (RSV) vaccine, bivalent (ABRYSVO) Kasandra Wong MD Work Phone: [facility] 06-13-2023 influenza virus vacc ine, unspecified formulation Xr [place] Work Phone: [facility] 06-20-2022 influenza (aIIV4) vaccine, age 65+ yr, quadrivalent, PF (FLUAD QUAD) Kasandra Wong MD Work Phone: [facility] 06-20-2022 influenza virus vacc ine, unspecified formulation Kasandra Wong MD Work Phone: [facility] 05-13-2021 influenza (HD-IIV4) vaccine, age 65+ yr, high dose, quadrivalent, PF (FLUZONE HIGH-DOSE) Kasandra Wong MD Work Phone: [facility] 05-13-2021 influenza, injectabl e, quadrivalent, preservative free Dr. Good Mcguire Work Phone: [facility] 05-13-2021 influenza, seasonal, injectable Dr. Good Mcguire Work Phone: [facility] 05-19-[address] Good Mcguire Work Phone: [facility] 05-19-2020 zoster vaccine recombinant Kasandra Wong MD Work Phone: [facility] 04-28-2020 influenza, injectabl e, quadrivalent, preservative free Kasandra Wong MD Work Phone: [facility] 03-17-[address] Good Mcguire Work Phone: [facility] 03-17-2020 zoster vaccine recombinant Kasandra Wong MD Work Phone: [facility] 06-18-2019 Influenza, injectabl e, [facility] [place] [facility], preservative free, quadrivalent Kasandra Wong MD Work Phone: [facility] 06-19-2018 Seasonal trivalent influenza vaccine, adjuvanted, preservative free Kasandra Wong MD Work Phone: [facility] 06-28-2016 influenza, seasonal, injectable Franck Hall DO Work Phone: [facility] Work Phone: 02-21-2016 pneumococcal conjuga te vaccine, 13 valent Franck Hensleyry DO Work Phone: [facility] 06-02-2015 influenza, high dose seasonal, preservative-free Franck Hensleyry DO Work Phone: [facility] 05-28-2013 influenza virus vacc ine, unspecified formulation Franck Isabel DO Work Phone: [facility] 06-18-2012 influenza virus vacc ine, unspecified formulation Franck Isabel DO Work Phone: [facility] 09-03-2010 zoster vaccine, live Franck Hall DO Work Phone: [facility] Work Phone: 05-12-2010 pneumococcal polysaccharide vaccine, 23 valent Franck Isabel DO Work Phone: [facility] 08-31-2008 zoster vaccine, live Kasandra Wong MD Work Phone: [facility] 09-03-2007 tetanus and diphther ia toxoids, adsorbed, preservative free, for adult use (2 Lf of tetanus toxoid and 2 Lf of diphtheria toxoid) Franck Isabel DO Work Phone: [facility] Work Phone: Payers Date Payer Category Payer Self-pay [id number] 2019 Unknown MMO MMO MEDICARE SUPPLEMENT [id number] 2019-Present [phone] [address] [place] [address] Indemnity [id number] 2019 Unknown MMO MMO MEDICARE SUPPLEMENT [id number] 2019-Present [phone] [address] [place] [address] Indemnity [id number] 2019 Unknown [id number] 2009 Medicare MEDICARE MEDICAR E A AND B [id number] 2009-Present [phone] [address] [address] [place] [address] Medicare [id number] 2009 Medicare MEDICARE MEDICAR E A AND B [id number] 2009-Present [phone] [address] [place] [id number] Medicare [id number] 2009 Medicare [id number] Medicare [id number] Medicare [id number] Unknown [id number] Unknown [id number] Unknown [id number] Unknown [id number] Unknown [id number] Unknown [id number] Unknown [id number] Unknown [id number] Unknown [id number] Unknown [id number] Unknown [id number] Unknown [id number] Unknown [id number] Unknown [id number] Unknown [id number] Unknown [id number] Social History Date Type Detail Facility Start: 08-01-2011 End: 07-27-2024 Tobacco smoking status TXIS Never smoked tobacco [facility] Start: 12-06-2021 End: 08-01-2023 Alcohol intake Current non-drinker of alcohol (finding) [facility] Start: 1945 Sex Assigned At Not on file [facility] Start: 11-27-2021 End: 05-30-2022 Exposure to SARS-CoV-2 (event) Not sure [facility] Start: 08-01-2011 Tobacco use and exposure Smokeless tobacco non-user [facility] Start: 06-21-2022 End: 12-10-2023 Tobacco smoking status NHIS Unknown if ever smoked [facility] Start: 1945 Sex Assigned At Female [facility] Start: 12-06-2021 End: 03-14-2023 History of Social function [facility] Start: 12-06-2021 End: 03-14-2023 Tobacco use panel [facility] National Score (1-100), lower number is lower risk 48 [facility] NEGATED: Highlighted row [facility] Medical Equipment Procedure Code Equipment Code Equipment Origin al Text Equipment Identifier Dates [id number], [id number], [id number] Start: 02-20-2012 Comment on above: Use as instructed. T ests blood sugars 5 times a day. Dx: 250.01. Use one needle per d ose. 4 per day. Test blood sugar(s) 4 daily. Dx: 250.02. Insulin: Yes Blood Sugar Diagnostic (Onetouch Ultra Blue Test Strip) strip Start: 10-07-2018 Pen Needle, Diabetic (Easy Touch) 31 gauge x 5/16 needle Start: 12-08-2021 Blood Sugar Diagnostic (Blood Glucose Test) strip Start: 08-07-2017 End: 10-07-2018 Blood Sugar Diagnostic (Onetouch Ultra Blue Test Strip) strip Start: 10-03-2018 End: 10-03-2018 Blood Sugar Diagnostic (Onetouch Ultra Blue Test Strip) strip Start: 10-03-2018 End: 10-07-2018 Blood Sugar Diagnostic (Onetouch Ultra Blue Test Strip) strip Start: 09-19-2018 End: 09-19-2018 Blood Sugar Diagnostic (Onetouch Ultra Blue Test Strip) strip Start: 09-19-2018 End: 09-30-2018 Blood Sugar Diagnostic (Onetouch Ultra Blue Test Strip) strip Start: 09-30-2018 End: 09-30-2018 Blood Sugar Diagnostic (Onetouch Ultra Blue Test Strip) strip Start: 09-30-2018 End: 10-03-2018 Blood Sugar Diagnostic (Onetouch Ultra Blue Test Strip) strip Start: 10-07-2018 End: 10-07-2018 Pen Needle, Diabetic (Easy Touch) 31 gauge x 5/16 needle Start: 08-06-2018 End: 08-06-2018 Pen Needle, Diabetic (Easy Touch) 31 gauge x 5/16 needle Start: 08-06-2018 End: 08-06-2018 Pen Needle, Diabetic (Easy Touch) 31 gauge x 5/16 needle Start: 06-24-2020 End: 12-08-2021 Pen Needle, Diabetic (Easy Touch) 31 gauge x 5/16 needle Start: 08-06-2018 End: 06-24-2020 Blood Sugar Diagnostic (Onetouch Ultra Blue Test Strip) strip Start: 10-07-2018 Blood Sugar Diagnostic (Onetouch Ultra Test) strip Start: 08-17-2022 Pen Needle, Diabetic (Easy Touch) 31 gauge x 5/16 needle Start: 12-08-2021 Blood Sugar Diagnostic (Blood Glucose Test) strip Start: 08-07-2017 End: 10-07-2018 Blood Sugar Diagnostic (Onetouch Ultra Blue Test Strip) strip Start: 10-03-2018 End: 10-03-2018 Blood Sugar Diagnostic (Onetouch Ultra Blue Test Strip) strip Start: 10-03-2018 End: 10-07-2018 Blood Sugar Diagnostic (Onetouch Ultra Blue Test Strip) strip Start: 09-19-2018 End: 09-19-2018 Blood Sugar Diagnostic (Onetouch Ultra Blue Test Strip) strip Start: 09-19-2018 End: 09-30-2018 Blood Sugar Diagnostic (Onetouch Ultra Blue Test Strip) strip Start: 09-30-2018 End: 09-30-2018 Blood Sugar Diagnostic (Onetouch Ultra Blue Test Strip) strip Start: 09-30-2018 End: 10-03-2018 Blood Sugar Diagnostic (Onetouch Ultra Blue Test Strip) strip Start: 10-07-2018 End: 10-07-2018 Pen Needle, Diabetic (Easy Touch) 31 gauge x 5/16 needle Start: 08-06-2018 End: 08-06-2018 Pen Needle, Diabetic (Easy Touch) 31 gauge x 5/16 needle Start: 08-06-2018 End: 08-06-2018 Pen Needle, Diabetic (Easy Touch) 31 gauge x 5/16 needle Start: 06-24-2020 End: 12-08-2021 Pen Needle, Diabetic (Easy Touch) 31 gauge x 5/16 needle Start: 08-06-2018 End: 06-24-2020 Blood Sugar Diagnostic (Onetouch Ultra Blue Test Strip) strip Start: 10-07-2018 Blood Sugar Diagnostic (Onetouch Ultra Test) strip Start: 08-17-2022 Pen Needle, Diabetic (Easy Touch) 31 gauge x 5/16 needle Start: 12-08-2021 Blood Sugar Diagnostic (Blood Glucose Test) strip Start: 08-07-2017 End: 10-07-2018 Blood Sugar Diagnostic (Onetouch Ultra Blue Test Strip) strip Start: 10-03-2018 End: 10-03-2018 Blood Sugar Diagnostic (Onetouch Ultra Blue Test Strip) strip Start: 10-03-2018 End: 10-07-2018 Blood Sugar Diagnostic (Onetouch Ultra Blue Test Strip) strip Start: 09-19-2018 End: 09-19-2018 Blood Sugar Diagnostic (Onetouch Ultra Blue Test Strip) strip Start: 09-19-2018 End: 09-30-2018 Blood Sugar Diagnostic (Onetouch Ultra Blue Test Strip) strip Start: 09-30-2018 End: 09-30-2018 Blood Sugar Diagnostic (Onetouch Ultra Blue Test Strip) strip Start: 09-30-2018 End: 10-03-2018 Blood Sugar Diagnostic (Onetouch Ultra Blue Test Strip) strip Start: 10-07-2018 End: 10-07-2018 Pen Needle, Diabetic (Easy Touch) 31 gauge x 5/16 needle Start: 08-06-2018 End: 08-06-2018 Pen Needle, Diabetic (Easy Touch) 31 gauge x 5/16 needle Start: 08-06-2018 End: 08-06-2018 Pen Needle, Diabetic (Easy Touch) 31 gauge x 5/16 needle Start: 06-24-2020 End: 12-08-2021 Pen Needle, Diabetic (Easy Touch) 31 gauge x 5/16 needle Start: 08-06-2018 End: 06-24-2020 Blood Sugar Diagnostic (Onetouch Ultra Blue Test Strip) strip Start: 10-07-2018 Blood Sugar Diagnostic (Onetouch Ultra Test) strip Start: 08-17-2022 Pen Needle, Diabetic (Easy Touch) 31 gauge x 5/16 needle Start: 12-08-2021 Blood Sugar Diagnostic (Blood Glucose Test) strip Start: 08-07-2017 End: 10-07-2018 Blood Sugar Diagnostic (Onetouch Ultra Blue Test Strip) strip Start: 10-03-2018 End: 10-03-2018 Blood Sugar Diagnostic (Onetouch Ultra Blue Test Strip) strip Start: 10-03-2018 End: 10-07-2018 Blood Sugar Diagnostic (Onetouch Ultra Blue Test Strip) strip Start: 09-19-2018 End: 09-19-2018 Blood Sugar Diagnostic (Onetouch Ultra Blue Test Strip) strip Start: 09-19-2018 End: 09-30-2018 Blood Sugar Diagnostic (Onetouch Ultra Blue Test Strip) strip Start: 09-30-2018 End: 09-30-2018 Blood Sugar Diagnostic (Onetouch Ultra Blue Test Strip) strip Start: 09-30-2018 End: 10-03-2018 Blood Sugar Diagnostic (Onetouch Ultra Blue Test Strip) strip Start: 10-07-2018 End: 10-07-2018 Pen Needle, Diabetic (Easy Touch) 31 gauge x 5/16 needle Start: 08-06-2018 End: 08-06-2018 Pen Needle, Diabetic (Easy Touch) 31 gauge x 5/16 needle Start: 08-06-2018 End: 08-06-2018 Pen Needle, Diabetic (Easy Touch) 31 gauge x 5/16 needle Start: 06-24-2020 End: 12-08-2021 Pen Needle, Diabetic (Easy Touch) 31 gauge x 5/16 needle Start: 08-06-2018 End: 06-24-2020 Blood Sugar Diagnostic (Onetouch Ultra Blue Test Strip) strip Start: 10-07-2018 Blood Sugar Diagnostic (Onetouch Ultra Test) strip Start: 08-17-2022 Pen Needle, Diabetic (Easy Touch) 31 gauge x 5/16 needle Start: 12-08-2021 Blood Sugar Diagnostic (Blood Glucose Test) strip Start: 08-07-2017 End: 10-07-2018 Blood Sugar Diagnostic (Onetouch Ultra Blue Test Strip) strip Start: 10-03-2018 End: 10-03-2018 Blood Sugar Diagnostic (Onetouch Ultra Blue Test Strip) strip Start: 10-03-2018 End: 10-07-2018 Blood Sugar Diagnostic (Onetouch Ultra Blue Test Strip) strip Start: 09-19-2018 End: 09-19-2018 Blood Sugar Diagnostic (Onetouch Ultra Blue Test Strip) strip Start: 09-19-2018 End: 09-30-2018 Blood Sugar Diagnostic (Onetouch Ultra Blue Test Strip) strip Start: 09-30-2018 End: 09-30-2018 Blood Sugar Diagnostic (Onetouch Ultra Blue Test Strip) strip Start: 09-30-2018 End: 10-03-2018 Blood Sugar Diagnostic (Onetouch Ultra Blue Test Strip) strip Start: 10-07-2018 End: 10-07-2018 Pen Needle, Diabetic (Easy Touch) 31 gauge x 5/16 needle Start: 08-06-2018 End: 08-06-2018 Pen Needle, Diabetic (Easy Touch) 31 gauge x 5/16 needle Start: 08-06-2018 End: 08-06-2018 Pen Needle, Diabetic (Easy Touch) 31 gauge x 5/16 needle Start: 06-24-2020 End: 12-08-2021 Pen Needle, Diabetic (Easy Touch) 31 gauge x 5/16 needle Start: 08-06-2018 End: 06-24-2020 Blood Sugar Diagnostic (Onetouch Ultra Blue Test Strip) strip Start: 10-07-2018 Blood Sugar Diagnostic (Onetouch Ultra Test) strip Start: 08-17-2022 Pen Needle, Diabetic (Easy Touch) 31 gauge x 5/16 needle Start: 12-08-2021 Blood Sugar Diagnostic (Blood Glucose Test) strip Start: 08-07-2017 End: 10-07-2018 Blood Sugar Diagnostic (Onetouch Ultra Blue Test Strip) strip Start: 10-03-2018 End: 10-03-2018 Blood Sugar Diagnostic (Onetouch Ultra Blue Test Strip) strip Start: 10-03-2018 End: 10-07-2018 Blood Sugar Diagnostic (Onetouch Ultra Blue Test Strip) strip Start: 09-19-2018 End: 09-19-2018 Blood Sugar Diagnostic (Onetouch Ultra Blue Test Strip) strip Start: 09-19-2018 End: 09-30-2018 Blood Sugar Diagnostic (Onetouch Ultra Blue Test Strip) strip Start: 09-30-2018 End: 09-30-2018 Blood Sugar Diagnostic (Onetouch Ultra Blue Test Strip) strip Start: 09-30-2018 End: 10-03-2018 Blood Sugar Diagnostic (Onetouch Ultra Blue Test Strip) strip Start: 10-07-2018 End: 10-07-2018 Pen Needle, Diabetic (Easy Touch) 31 gauge x 5/16 needle Start: 08-06-2018 End: 08-06-2018 Pen Needle, Diabetic (Easy Touch) 31 gauge x 5/16 needle Start: 08-06-2018 End: 08-06-2018 Pen Needle, Diabetic (Easy Touch) 31 gauge x 5/16 needle Start: 06-24-2020 End: 12-08-2021 Pen Needle, Diabetic (Easy Touch) 31 gauge x 5/16 needle Start: 08-06-2018 End: 06-24-2020 Blood Sugar Diagnostic (Onetouch Ultra Blue Test Strip) strip Start: 10-07-2018 Blood Sugar Diagnostic (Onetouch Ultra Test) strip Start: 08-17-2022 Pen Needle, Diabetic (Easy Touch) 31 gauge x 5/16 needle Start: 12-08-2021 Blood Sugar Diagnostic (Blood Glucose Test) strip Start: 08-07-2017 End: 10-07-2018 Blood Sugar Diagnostic (Onetouch Ultra Blue Test Strip) strip Start: 10-03-2018 End: 10-03-2018 Blood Sugar Diagnostic (Onetouch Ultra Blue Test Strip) strip Start: 10-03-2018 End: 10-07-2018 Blood Sugar Diagnostic (Onetouch Ultra Blue Test Strip) strip Start: 09-19-2018 End: 09-19-2018 Blood Sugar Diagnostic (Onetouch Ultra Blue Test Strip) strip Start: 09-19-2018 End: 09-30-2018 Blood Sugar Diagnostic (Onetouch Ultra Blue Test Strip) strip Start: 09-30-2018 End: 09-30-2018 Blood Sugar Diagnostic (Onetouch Ultra Blue Test Strip) strip Start: 09-30-2018 End: 10-03-2018 Blood Sugar Diagnostic (Onetouch Ultra Blue Test Strip) strip Start: 10-07-2018 End: 10-07-2018 Pen Needle, Diabetic (Easy Touch) 31 gauge x 5/16 needle Start: 08-06-2018 End: 08-06-2018 Pen Needle, Diabetic (Easy Touch) 31 gauge x 5/16 needle Start: 08-06-2018 End: 08-06-2018 Pen Needle, Diabetic (Easy Touch) 31 gauge x 5/16 needle Start: 06-24-2020 End: 12-08-2021 Pen Needle, Diabetic (Easy Touch) 31 gauge x 5/16 needle Start: 08-06-2018 End: 06-24-2020 Blood Sugar Diagnostic (Onetouch Ultra Blue Test Strip) strip Start: 10-07-2018 Blood Sugar Diagnostic (Onetouch Ultra Test) strip Start: 08-17-2022 Pen Needle, Diabetic (Easy Touch) 31 gauge x 5/16 needle Start: 12-08-2021 Blood Sugar Diagnostic (Blood Glucose Test) strip Start: 08-07-2017 End: 10-07-2018 Blood Sugar Diagnostic (Onetouch Ultra Blue Test Strip) strip Start: 10-03-2018 End: 10-03-2018 Blood Sugar Diagnostic (Onetouch Ultra Blue Test Strip) strip Start: 10-03-2018 End: 10-07-2018 Blood Sugar Diagnostic (Onetouch Ultra Blue Test Strip) strip Start: 09-19-2018 End: 09-19-2018 Blood Sugar Diagnostic (Onetouch Ultra Blue Test Strip) strip Start: 09-19-2018 End: 09-30-2018 Blood Sugar Diagnostic (Onetouch Ultra Blue Test Strip) strip Start: 09-30-2018 End: 09-30-2018 Blood Sugar Diagnostic (Onetouch Ultra Blue Test Strip) strip Start: 09-30-2018 End: 10-03-2018 Blood Sugar Diagnostic (Onetouch Ultra Blue Test Strip) strip Start: 10-07-2018 End: 10-07-2018 Pen Needle, Diabetic (Easy Touch) 31 gauge x 5/16 needle Start: 08-06-2018 End: 08-06-2018 Pen Needle, Diabetic (Easy Touch) 31 gauge x 5/16 needle Start: 08-06-2018 End: 08-06-2018 Pen Needle, Diabetic (Easy Touch) 31 gauge x 5/16 needle Start: 06-24-2020 End: 12-08-2021 Pen Needle, Diabetic (Easy Touch) 31 gauge x 5/16 needle Start: 08-06-2018 End: 06-24-2020 Blood Sugar Diagnostic (Onetouch Ultra Blue Test Strip) strip Start: 10-07-2018 Blood Sugar Diagnostic (Onetouch Ultra Test) strip Start: 08-17-2022 Pen Needle, Diabetic (Easy Touch) 31 gauge x 5/16 needle Start: 12-08-2021 Blood Sugar Diagnostic (Blood Glucose Test) strip Start: 08-07-2017 End: 10-07-2018 Blood Sugar Diagnostic (Onetouch Ultra Blue Test Strip) strip Start: 10-03-2018 End: 10-03-2018 Blood Sugar Diagnostic (Onetouch Ultra Blue Test Strip) strip Start: 10-03-2018 End: 10-07-2018 Blood Sugar Diagnostic (Onetouch Ultra Blue Test Strip) strip Start: 09-19-2018 End: 09-19-2018 Blood Sugar Diagnostic (Onetouch Ultra Blue Test Strip) strip Start: 09-19-2018 End: 09-30-2018 Blood Sugar Diagnostic (Onetouch Ultra Blue Test Strip) strip Start: 09-30-2018 End: 09-30-2018 Blood Sugar Diagnostic (Onetouch Ultra Blue Test Strip) strip Start: 09-30-2018 End: 10-03-2018 Blood Sugar Diagnostic (Onetouch Ultra Blue Test Strip) strip Start: 10-07-2018 End: 10-07-2018 Pen Needle, Diabetic (Easy Touch) 31 gauge x 5/16 needle Start: 08-06-2018 End: 08-06-2018 Pen Needle, Diabetic (Easy Touch) 31 gauge x 5/16 needle Start: 08-06-2018 End: 08-06-2018 Pen Needle, Diabetic (Easy Touch) 31 gauge x 5/16 needle Start: 06-24-2020 End: 12-08-2021 Pen Needle, Diabetic (Easy Touch) 31 gauge x 5/16 needle Start: 08-06-2018 End: 06-24-2020 Blood Sugar Diagnostic (Onetouch Ultra Blue Test Strip) strip Start: 10-07-2018 Blood Sugar Diagnostic (Onetouch Ultra Test) strip Start: 08-17-2022 Pen Needle, Diabetic (Easy Touch) 31 gauge x 5/16 needle Start: 12-08-2021 Blood Sugar Diagnostic (Blood Glucose Test) strip Start: 08-07-2017 End: 10-07-2018 Blood Sugar Diagnostic (Onetouch Ultra Blue Test Strip) strip Start: 10-03-2018 End: 10-03-2018 Blood Sugar Diagnostic (Onetouch Ultra Blue Test Strip) strip Start: 10-03-2018 End: 10-07-2018 Blood Sugar Diagnostic (Onetouch Ultra Blue Test Strip) strip Start: 09-19-2018 End: 09-19-2018 Blood Sugar Diagnostic (Onetouch Ultra Blue Test Strip) strip Start: 09-19-2018 End: 09-30-2018 Blood Sugar Diagnostic (Onetouch Ultra Blue Test Strip) strip Start: 09-30-2018 End: 09-30-2018 Blood Sugar Diagnostic (Onetouch Ultra Blue Test Strip) strip Start: 09-30-2018 End: 10-03-2018 Blood Sugar Diagnostic (Onetouch Ultra Blue Test Strip) strip Start: 10-07-2018 End: 10-07-2018 Pen Needle, Diabetic (Easy Touch) 31 gauge x 5/16 needle Start: 08-06-2018 End: 08-06-2018 Pen Needle, Diabetic (Easy Touch) 31 gauge x 5/16 needle Start: 08-06-2018 End: 08-06-2018 Pen Needle, Diabetic (Easy Touch) 31 gauge x 5/16 needle Start: 06-24-2020 End: 12-08-2021 Pen Needle, Diabetic (Easy Touch) 31 gauge x 5/16 needle Start: 08-06-2018 End: 06-24-2020 Blood Sugar Diagnostic (Onetouch Ultra Blue Test Strip) strip Start: 10-07-2018 Blood Sugar Diagnostic (Onetouch Ultra Test) strip Start: 08-17-2022 Pen Needle, Diabetic (Easy Touch) 31 gauge x 5/16 needle Start: 12-08-2021 Blood Sugar Diagnostic (Blood Glucose Test) strip Start: 08-07-2017 End: 10-07-2018 Blood Sugar Diagnostic (Onetouch Ultra Blue Test Strip) strip Start: 10-03-2018 End: 10-03-2018 Blood Sugar Diagnostic (Onetouch Ultra Blue Test Strip) strip Start: 10-03-2018 End: 10-07-2018 Blood Sugar Diagnostic (Onetouch Ultra Blue Test Strip) strip Start: 09-19-2018 End: 09-19-2018 Blood Sugar Diagnostic (Onetouch Ultra Blue Test Strip) strip Start: 09-19-2018 End: 09-30-2018 Blood Sugar Diagnostic (Onetouch Ultra Blue Test Strip) strip Start: 09-30-2018 End: 09-30-2018 Blood Sugar Diagnostic (Onetouch Ultra Blue Test Strip) strip Start: 09-30-2018 End: 10-03-2018 Blood Sugar Diagnostic (Onetouch Ultra Blue Test Strip) strip Start: 10-07-2018 End: 10-07-2018 Pen Needle, Diabetic (Easy Touch) 31 gauge x 5/16 needle Start: 08-06-2018 End: 08-06-2018 Pen Needle, Diabetic (Easy Touch) 31 gauge x 5/16 needle Start: 08-06-2018 End: 08-06-2018 Pen Needle, Diabetic (Easy Touch) 31 gauge x 5/16 needle Start: 06-24-2020 End: 12-08-2021 Pen Needle, Diabetic (Easy Touch) 31 gauge x 5/16 needle Start: 08-06-2018 End: 06-24-2020 Blood Sugar Diagnostic (Onetouch Ultra Blue Test Strip) strip Start: 10-07-2018 Blood Sugar Diagnostic (Onetouch Ultra Test) strip Start: 08-17-2022 Pen Needle, Diabetic (Easy Touch) 31 gauge x 5/16 needle Start: 12-08-2021 Blood Sugar Diagnostic (Blood Glucose Test) strip Start: 08-07-2017 End: 10-07-2018 Blood Sugar Diagnostic (Onetouch Ultra Blue Test Strip) strip Start: 10-03-2018 End: 10-03-2018 Blood Sugar Diagnostic (Onetouch Ultra Blue Test Strip) strip Start: 10-03-2018 End: 10-07-2018 Blood Sugar Diagnostic (Onetouch Ultra Blue Test Strip) strip Start: 09-19-2018 End: 09-19-2018 Blood Sugar Diagnostic (Onetouch Ultra Blue Test Strip) strip Start: 09-19-2018 End: 09-30-2018 Blood Sugar Diagnostic (Onetouch Ultra Blue Test Strip) strip Start: 09-30-2018 End: 09-30-2018 Blood Sugar Diagnostic (Onetouch Ultra Blue Test Strip) strip Start: 09-30-2018 End: 10-03-2018 Blood Sugar Diagnostic (Onetouch Ultra Blue Test Strip) strip Start: 10-07-2018 End: 10-07-2018 Pen Needle, Diabetic (Easy Touch) 31 gauge x 5/16 needle Start: 08-06-2018 End: 08-06-2018 Pen Needle, Diabetic (Easy Touch) 31 gauge x 5/16 needle Start: 08-06-2018 End: 08-06-2018 Pen Needle, Diabetic (Easy Touch) 31 gauge x 5/16 needle Start: 06-24-2020 End: 12-08-2021 Pen Needle, Diabetic (Easy Touch) 31 gauge x 5/16 needle Start: 08-06-2018 End: 06-24-2020 Blood Sugar Diagnostic (Onetouch Ultra Blue Test Strip) strip Start: 10-07-2018 Blood Sugar Diagnostic (Onetouch Ultra Test) strip Start: 08-17-2022 Pen Needle, Diabetic (Easy Touch) 31 gauge x 5/16 needle Start: 12-08-2021 Blood Sugar Diagnostic (Blood Glucose Test) strip Start: 08-07-2017 End: 10-07-2018 Blood Sugar Diagnostic (Onetouch Ultra Blue Test Strip) strip Start: 10-03-2018 End: 10-03-2018 Blood Sugar Diagnostic (Onetouch Ultra Blue Test Strip) strip Start: 10-03-2018 End: 10-07-2018 Blood Sugar Diagnostic (Onetouch Ultra Blue Test Strip) strip Start: 09-19-2018 End: 09-19-2018 Blood Sugar Diagnostic (Onetouch Ultra Blue Test Strip) strip Start: 09-19-2018 End: 09-30-2018 Blood Sugar Diagnostic (Onetouch Ultra Blue Test Strip) strip Start: 09-30-2018 End: 09-30-2018 Blood Sugar Diagnostic (Onetouch Ultra Blue Test Strip) strip Start: 09-30-2018 End: 10-03-2018 Blood Sugar Diagnostic (Onetouch Ultra Blue Test Strip) strip Start: 10-07-2018 End: 10-07-2018 Pen Needle, Diabetic (Easy Touch) 31 gauge x 5/16 needle Start: 08-06-2018 End: 08-06-2018 Pen Needle, Diabetic (Easy Touch) 31 gauge x 5/16 needle Start: 08-06-2018 End: 08-06-2018 Pen Needle, Diabetic (Easy Touch) 31 gauge x 5/16 needle Start: 06-24-2020 End: 12-08-2021 Pen Needle, Diabetic (Easy Touch) 31 gauge x 5/16 needle Start: 08-06-2018 End: 06-24-2020 Blood Sugar Diagnostic (Onetouch Ultra Blue Test Strip) strip Start: 10-07-2018 Blood Sugar Diagnostic (Onetouch Ultra Test) strip Start: 08-17-2022 Pen Needle, Diabetic (Easy Touch) 31 gauge x 5/16 needle Start: 12-08-2021 Blood Sugar Diagnostic (Blood Glucose Test) strip Start: 08-07-2017 End: 10-07-2018 Blood Sugar Diagnostic (Onetouch Ultra Blue Test Strip) strip Start: 10-03-2018 End: 10-03-2018 Blood Sugar Diagnostic (Onetouch Ultra Blue Test Strip) strip Start: 10-03-2018 End: 10-07-2018 Blood Sugar Diagnostic (Onetouch Ultra Blue Test Strip) strip Start: 09-19-2018 End: 09-19-2018 Blood Sugar Diagnostic (Onetouch Ultra Blue Test Strip) strip Start: 09-19-2018 End: 09-30-2018 Blood Sugar Diagnostic (Onetouch Ultra Blue Test Strip) strip Start: 09-30-2018 End: 09-30-2018 Blood Sugar Diagnostic (Onetouch Ultra Blue Test Strip) strip Start: 09-30-2018 End: 10-03-2018 Blood Sugar Diagnostic (Onetouch Ultra Blue Test Strip) strip Start: 10-07-2018 End: 10-07-2018 Pen Needle, Diabetic (Easy Touch) 31 gauge x 5/16 needle Start: 08-06-2018 End: 08-06-2018 Pen Needle, Diabetic (Easy Touch) 31 gauge x 5/16 needle Start: 08-06-2018 End: 08-06-2018 Pen Needle, Diabetic (Easy Touch) 31 gauge x 5/16 needle Start: 06-24-2020 End: 12-08-2021 Pen Needle, Diabetic (Easy Touch) 31 gauge x 5/16 needle Start: 08-06-2018 End: 06-24-2020 Blood Sugar Diagnostic (Onetouch Ultra Blue Test Strip) strip Start: 10-07-2018 Blood Sugar Diagnostic (Onetouch Ultra Test) strip Start: 08-17-2022 Pen Needle, Diabetic (Easy Touch) 31 gauge x 5/16 needle Start: 12-08-2021 Blood Sugar Diagnostic (Blood Glucose Test) strip Start: 08-07-2017 End: 10-07-2018 Blood Sugar Diagnostic (Onetouch Ultra Blue Test Strip) strip Start: 10-03-2018 End: 10-03-2018 Blood Sugar Diagnostic (Onetouch Ultra Blue Test Strip) strip Start: 10-03-2018 End: 10-07-2018 Blood Sugar Diagnostic (Onetouch Ultra Blue Test Strip) strip Start: 09-19-2018 End: 09-19-2018 Blood Sugar Diagnostic (Onetouch Ultra Blue Test Strip) strip Start: 09-19-2018 End: 09-30-2018 Blood Sugar Diagnostic (Onetouch Ultra Blue Test Strip) strip Start: 09-30-2018 End: 09-30-2018 Blood Sugar Diagnostic (Onetouch Ultra Blue Test Strip) strip Start: 09-30-2018 End: 10-03-2018 Blood Sugar Diagnostic (Onetouch Ultra Blue Test Strip) strip Start: 10-07-2018 End: 10-07-2018 Pen Needle, Diabetic (Easy Touch) 31 gauge x 5/16 needle Start: 08-06-2018 End: 08-06-2018 Pen Needle, Diabetic (Easy Touch) 31 gauge x 5/16 needle Start: 08-06-2018 End: 08-06-2018 Pen Needle, Diabetic (Easy Touch) 31 gauge x 5/16 needle Start: 06-24-2020 End: 12-08-2021 Pen Needle, Diabetic (Easy Touch) 31 gauge x 5/16 needle Start: 08-06-2018 End: 06-24-2020 Blood Sugar Diagnostic (Onetouch Ultra Blue Test Strip) strip Start: 10-07-2018 Blood Sugar Diagnostic (Onetouch Ultra Test) strip Start: 08-17-2022 Pen Needle, Diabetic (Easy Touch) 31 gauge x 5/16 needle Start: 12-08-2021 Blood Sugar Diagnostic (Blood Glucose Test) strip Start: 08-07-2017 End: 10-07-2018 Blood Sugar Diagnostic (Onetouch Ultra Blue Test Strip) strip Start: 10-03-2018 End: 10-03-2018 Blood Sugar Diagnostic (Onetouch Ultra Blue Test Strip) strip Start: 10-03-2018 End: 10-07-2018 Blood Sugar Diagnostic (Onetouch Ultra Blue Test Strip) strip Start: 09-19-2018 End: 09-19-2018 Blood Sugar Diagnostic (Onetouch Ultra Blue Test Strip) strip Start: 09-19-2018 End: 09-30-2018 Blood Sugar Diagnostic (Onetouch Ultra Blue Test Strip) strip Start: 09-30-2018 End: 09-30-2018 Blood Sugar Diagnostic (Onetouch Ultra Blue Test Strip) strip Start: 09-30-2018 End: 10-03-2018 Blood Sugar Diagnostic (Onetouch Ultra Blue Test Strip) strip Start: 10-07-2018 End: 10-07-2018 Pen Needle, Diabetic (Easy Touch) 31 gauge x 5/16 needle Start: 08-06-2018 End: 08-06-2018 Pen Needle, Diabetic (Easy Touch) 31 gauge x 5/16 needle Start: 08-06-2018 End: 08-06-2018 Pen Needle, Diabetic (Easy Touch) 31 gauge x 5/16 needle Start: 06-24-2020 End: 12-08-2021 Pen Needle, Diabetic (Easy Touch) 31 gauge x 5/16 needle Start: 08-06-2018 End: 06-24-2020 Blood Sugar Diagnostic (Onetouch Ultra Blue Test Strip) strip Start: 10-07-2018 Blood Sugar Diagnostic (Onetouch Ultra Test) strip Start: 08-17-2022 Pen Needle, Diabetic (Easy Touch) 31 gauge x 5/16 needle Start: 12-08-2021 Blood Sugar Diagnostic (Blood Glucose Test) strip Start: 08-07-2017 End: 10-07-2018 Blood Sugar Diagnostic (Onetouch Ultra Blue Test Strip) strip Start: 10-03-2018 End: 10-03-2018 Blood Sugar Diagnostic (Onetouch Ultra Blue Test Strip) strip Start: 10-03-2018 End: 10-07-2018 Blood Sugar Diagnostic (Onetouch Ultra Blue Test Strip) strip Start: 09-19-2018 End: 09-19-2018 Blood Sugar Diagnostic (Onetouch Ultra Blue Test Strip) strip Start: 09-19-2018 End: 09-30-2018 Blood Sugar Diagnostic (Onetouch Ultra Blue Test Strip) strip Start: 09-30-2018 End: 09-30-2018 Blood Sugar Diagnostic (Onetouch Ultra Blue Test Strip) strip Start: 09-30-2018 End: 10-03-2018 Blood Sugar Diagnostic (Onetouch Ultra Blue Test Strip) strip Start: 10-07-2018 End: 10-07-2018 Pen Needle, Diabetic (Easy Touch) 31 gauge x 5/16 needle Start: 08-06-2018 End: 08-06-2018 Pen Needle, Diabetic (Easy Touch) 31 gauge x 5/16 needle Start: 08-06-2018 End: 08-06-2018 Pen Needle, Diabetic (Easy Touch) 31 gauge x 5/16 needle Start: 06-24-2020 End: 12-08-2021 Pen Needle, Diabetic (Easy Touch) 31 gauge x 5/16 needle Start: 08-06-2018 End: 06-24-2020 Blood Sugar Diagnostic (Onetouch Ultra Blue Test Strip) strip Start: 10-07-2018 Blood Sugar Diagnostic (Onetouch Ultra Test) strip Start: 08-17-2022 Pen Needle, Diabetic (Easy Touch) 31 gauge x 5/16 needle Start: 12-08-2021 Blood Sugar Diagnostic (Blood Glucose Test) strip Start: 08-07-2017 End: 10-07-2018 Blood Sugar Diagnostic (Onetouch Ultra Blue Test Strip) strip Start: 10-03-2018 End: 10-03-2018 Blood Sugar Diagnostic (Onetouch Ultra Blue Test Strip) strip Start: 10-03-2018 End: 10-07-2018 Blood Sugar Diagnostic (Onetouch Ultra Blue Test Strip) strip Start: 09-19-2018 End: 09-19-2018 Blood Sugar Diagnostic (Onetouch Ultra Blue Test Strip) strip Start: 09-19-2018 End: 09-30-2018 Blood Sugar Diagnostic (Onetouch Ultra Blue Test Strip) strip Start: 09-30-2018 End: 09-30-2018 Blood Sugar Diagnostic (Onetouch Ultra Blue Test Strip) strip Start: 09-30-2018 End: 10-03-2018 Blood Sugar Diagnostic (Onetouch Ultra Blue Test Strip) strip Start: 10-07-2018 End: 10-07-2018 Pen Needle, Diabetic (Easy Touch) 31 gauge x 5/16 needle Start: 08-06-2018 End: 08-06-2018 Pen Needle, Diabetic (Easy Touch) 31 gauge x 5/16 needle Start: 08-06-2018 End: 08-06-2018 Pen Needle, Diabetic (Easy Touch) 31 gauge x 5/16 needle Start: 06-24-2020 End: 12-08-2021 Pen Needle, Diabetic (Easy Touch) 31 gauge x 5/16 needle Start: 08-06-2018 End: 06-24-2020 Mental Status Date Assessment Result Facility 11-10-2022 Cognitive function Voice/Name [facility] Work Phone: Clinical Notes 11-09-2015 to 01-12-2025 Note Date & Type Note Facility 01-12-2025 Evaluation note Diagnosis Onset Date Resolution Localized swelling of left forearm acute January 12, 2025 9:52am GERD (gastroesophageal reflux disease) chronic January 12, 2025 9:52am Hyperlipidemia chronic January 12, 2025 9:52am Hypertension chronic January 12 9:52am [facility] Work Phone: 1(514) 188-485205-12-2025 Evaluation note* Diagnosis Onset Date Resolution Status Admit Date Localized swelling of left forearm acute January 12, 2025 9 :52am GERD (gastroesophageal reflu x disease) chronic January 12, 2025 9 :52am Hyperlipidemia chronic January 12, 2025 9:52am Hypertension chronic January 12 9:52am Diabetes type 1, controlled chronic January 21, 2025 11:38am Hypertension chronic January 21 11:38am Mixed hyperlipidemia chronic January 21, 2025 11:38am Overweight chronic January 21, 2025 11:38am 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 January 21, 2025 11:38am [facility] Work Phone: 1(310) 359-655005-12-2025 Evaluation note* Diagnosis Onset Date Resolution Status Admit Date Localized swelling of left forearm acute January 12, 2025 9 :52am GERD (gastroesophageal reflu x disease) chronic January 12, 2025 9 :52am Hyperlipidemia chronic January 12, 2025 9:52am Hypertension chronic January 12 9:52am Diabetes type 1, controlled chronic January 21, 2025 11:38am Hypertension chronic January 21 11:38am Mixed hyperlipidemia chronic January 21, 2025 11:38am Overweight chronic January 21, 2025 11:38am 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 mellitus January 21, 2025 11:38am Dysuria acute February 27 10:25am [facility] Work Phone: 1(545) 375-136905-12-2025 Evaluation note* Diagnosis Onset Date Resolution Status Admit Date Localized swelling of left forearm acute January 12, 2025 9 :52am GERD (gastroesophageal reflu x disease) chronic January 12, 2025 9 :52am Hyperlipidemia chronic January 12, 2025 9:52am Hypertension chronic January 12 9:52am Diabetes type 1, controlled chronic January 21, 2025 11:38am Hypertension chronic January 21 11:38am Mixed hyperlipidemia chronic January 21, 2025 11:38am Overweight chronic January 21, 2025 11:38am 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 mellitus January 21, 2025 11:38am Dysuria acute February 27 10:25am UTI (urinary tract infection) acute March 15, 2025 10:51am [facility] Work Phone: 1(105) 571-385905-12-2025 Evaluation note* Diagnosis Onset Date Resolution Status Admit Date Localized swelling of left forearm acute January 12, 2025 9 :52am GERD (gastroesophageal reflu x disease) chronic January 12, 2025 9 :52am Hyperlipidemia chronic January 12, 2025 9:52am Hypertension chronic January 12 9:52am Diabetes type 1, controlled chronic January 21, 2025 11:38am Hypertension chronic January 21 11:38am Mixed hyperlipidemia chronic January 21, 2025 11:38am Overweight chronic January 21, 2025 11:38am 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 mellitus January 21, 2025 11:38am Dysuria acute February 27 10:25am UTI (urinary tract infection) acute March 15, 2025 10:51am Mixed incontinence acute April 17, 2025 8:29am Nocturia acute April 17, 025 8:29am UTI (urinary tract infection) acute April 17, 2025 8:29am Overactive bladder chronic April 17, 2025 8:29am [facility] Work Phone: 1(326) 397-436105-12-2025 Evaluation note* Diagnosis Onset Date Resolution Status Admit Date Localized swelling of left forearm acute January 12, 2025 9 :52am GERD (gastroesophageal reflu x disease) chronic January 12, 2025 9 :52am Hyperlipidemia chronic January 12, 2025 9:52am Hypertension chronic January 12 9:52am Diabetes type 1, controlled chronic January 21, 2025 11:38am Hypertension chronic January 21 11:38am Mixed hyperlipidemia chronic January 21, 2025 11:38am Overweight chronic January 21, 2025 11:38am 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 January 21, 2025 11:38am Dysuria acute February 27 10:25am UTI (urinary tract infection) acute March 15, 2025 10:51am Mixed incontinence acute April 17, 2025 8:29am Nocturia acute April 17, 025 8:29am UTI (urinary tract infection) acute April 17, 2025 8:29am Overactive bladder chronic April 17, 2025 8:29am Mixed incontinence acute April 22, 2025 9:13am Nocturia acute April 22, 025 9:13am UTI (urinary tract infection) acute April 22, 2025 9:13am Vaginal atrophy acute April 222024 9:13am Overactive bladder chronic April 22, 2025 9:13am [facility] [employer] Work Phone: 1(129) 773-297601-20-2025 Evaluation note* Diagnosis Onset Date Resolution Status Admit Date Diabetes type 1, controlled chronic September 22, 2024 11:38am Hyperlipidemia chronic September 222024 11:38am Hypertension chronic September 11:38am Neuropathy chronic September 22, 2024 11:38am Overweight chronic September 22, 2024 11:38am Vitamin D insufficiency chronic J anuary 20th, 2025 11:38am Localized swelling of left forearm acute January 12, 2025 9 :52am GERD (gastroesophageal reflu x disease) chronic January 12, 2025 9 :52am Hyperlipidemia chronic January 12, 2025 9:52am Hypertension chronic January 12 9:52am [facility] Work Phone: 1(518) 778-235812-07-2023 Miscellaneous Notes* Telephone Encounter - Aren Guan RN - 08/09/2023 1:52 PM EST Patient called today and informed me she [...] I told her I understood and to expecta call from Dr. Wong's staff. Aren Guan RN documented in this encounterOhio [facility]11-29-2023 NoteHNO ID: [id number] Author: Aren Guan RN Service: ? Author Type: Nurse [...] she has questions prior to surgery. Patient's spotter driver was adamant that they leave as she does not see well in the dark and they have a [address] [facility]11-29-2023 NoteHNO ID: [id number] Author: Kasandra Wong MD Service: ? Author Type: Physician Type: Progress Notes Filed: 08/01/2023 3:57 PM Note Text: SURGICAL SERVICES HISTORY AND PHYSICAL EXAMINATION SERVICE DATE: 08/01/2023 SERVICE TIME: 3:15 PM PRIMARY CARE PHYSICIAN: Good Mcguire MD SUBJECTIVE CHIEF COMPLAINT: hernia HISTORY [...] once daily. losartan (COZAAR) (more content not included)...[facility] 08-01-2023 History of Present illness Narrative* Aren Guan RN - 08/01/2023 4:17 PM EST Patient given folder with written information about laparoscopic hiatal hernia repair with fundoplication, including the pre-op instructions, what to expect in the hospital, pre- and post-op diet anddischarge instructions. I verbally discussed and reviewed all the information with the patient. Allof patient's questions were answered. Patient has my contact information if she has questions priorto surgery. Patient's spotter driver was adamant that they leave as she does not see well in the dark and they have a [address] Aren Guan RN * Kasandra Wong MD - 08/01/2023 3:08 PM EST SURGICAL SERVICES HISTORY AND PHYSICAL EXAMINATION SERVICE DATE: 08/01/2023 SERVICE TIME: 3:15 PM PRIMARY CARE PHYSICIAN: Good Mcguire MD SUBJECTIVE CHIEF COMPLAINT: hernia HISTORY OF PRESENT ILLNESS: Ms. Batista is a 78 year old female with a PMH of anemia, type 2 DM withdiabetic retinopathy (dx 11 yrs ago; Lantus, lisporo; A1c <7), HLD, paraesophageal hernia, hx ofgallstone pancreatitis, and GERD who presents for follow [...] hernia and was referred to clinic here today.She was started on Omeprazole 40 mg in [...] BREAST BIOPSY Left 1996 CARPAL TUNNEL Bilateral 2009 CHOLECYSTECTOMY 1994 COLONOSCOPY 07/19/2010 COLSC FLX W/REMOVAL [...] mouth daily at bedtime. blood sugar diagnostic (AnagearTOUCH ULTRA TEST) test strip Use as instructed. [...] by mouth once daily. (Patient not taking: Reportedon 05/05/2022) atorvastatin (LIPITOR) 40 mg tablet Take [...] with them. She is still on the fenceabout surgery - she is mostly worried about [...] 01, 2023 TIME: 3:15 PM PAGER/CONTACT #: [phone] documented in this encounterOhio Valley Surgical Hospital11-22-2023 Miscellaneous Notes* Telephone Encounter - Aren Guan RN - 07/25/2023 3:01 PM EST I called patient to see if she had an appointment with her grade recorder in preparation for surgery.Patient stated she does not have a grade recorder, but her PCP did an EKG on her (available in Personally and is normal). I asked her when she last saw her PCP and Tasneem said on 07/18/23. Patient stated sheis not sure she wants surgery and it [...] not been scheduled with surgery optimization clinic. Aren Guan RN documented in this encounterOhio Valley [facility] Hospital10-09-2023 NoteHNO ID: [id number] Author: Darcy Sauer RT(R) Service: Radiology Author [...] BY: RT Faith(R) June 11, 2023 9:06 AMUniversity Hospitals Lake West Medical [id number] NoteHNO ID: [id number] Author: Aren Guan RN Service: ? Author Type: Nurse [...] if she has questions prior to surgery. Aren Guan [facility]07-12-2023 Miscellaneous Notes* Telephone Encounter - Carissa Aponte MA - 03/14/2023 12:21 PM EDT Manometry scheduled for 04/13/23 @ 8:30 am. Prep/instructions given to patient at checkout. Carissa Aponte MA documented in this encounterOhio Valley Surgical Hospital07-12-2023 Miscellaneous Notes* Addendum Note - Carissa Aponte MA - 03/14/2023 12:20 PM EDTAddended by: CARISSA APONTE on: 03/14/2023 12:20 PM Modules accepted: Orders documented in this encounterOhio Valley Surgical Hospital07-12-2023 NoteHNO ID: [id number] Author: Kasandra Wong MD Service: ? Author [...] Left 1996 CARPAL TUNNEL Bilateral 2008 CHOLECYSTECTOMY 1993 COLONOSCOPY [...] by mouth twice daily.) blood sugar diagnostic (AnagearTOUCH ULTRA TEST) test strip Use as instructed. Tests blood sugars 5 times a day. Dx: 250.01. insulin needles, DISPOSABLE, (PEN NEEDLE) 31 gauge x 5/16 ndle Use one needle per dose. 4 per day. Cholecalciferol, Vitamin D3, 1,000 unit cap Take 2 capsules by renea (more content not included)...[facility]07-12-2023 History of Present illness Narrative* Aren Guan RN - 03/14/2023 11:17 AM EDT Patient given written information about esophageal manometry [...] if she has questions prior to surgery. Aren Guan RN * Kasandra Wong MD - 03/14/2023 9:59 AM EDT SURGICAL SERVICES HISTORY AND PHYSICAL EXAMINATION SERVICE DATE: 03/14/2023 SERVICE TIME: 9:59 AM PRIMARY CARE PHYSICIAN: No primary care provider on file. SUBJECTIVE CHIEF COMPLAINT: hernia HISTORY OF PRESENT ILLNESS: Ms. Batista is a 77 year old female with a PMH of anemia, type 2 DM withdiabetic retinopathy (dx 11 yrs ago; kavya Mcodnald; A1c <7), HLD, paraesophageal hernia, hx ofgallstone pancreatitis, and GERD who presents for surgical [...] to clinic here today. She was started onOmeprazole 40 mg in AM and Famotidine 20 [...] by mouth twice daily.) blood sugar diagnostic (AnagearTOUCH ULTRA TEST) test strip Use as instructed. [...] by mouth once daily. (Patient not taking: Reportedon 05/05/2022) atorvastatin (LIPITOR) 40 mg tablet Take [...] issues. I analilia multiple cartoons today to explainthe steps of the surgery along with the risks benefits and alternatives. We discussed preoperative preparation, operative steps, operative technique and immediate postoperative instructions includingdiet and activity/ambulation. Each topic was extensively discussed [...] - BASIC METABOLIC PNL - CONSULT TO [facility] 2. Gastroesophageal reflux disease [...] 14, 2023 TIME: 9:59 AM PAGER/CONTACT #: [phone] documented in this encounterOhio Valley Surgical Hospital03-10-2023 Procedure [facility]03-10-2023 Procedure [facility]03-10-2023 Procedure [facility]03-10-2023 Procedure [facility]10-04-2022 NoteHNO ID: [id number] Author: Geoffrey Denise MD Service: ? Author Type: Physician Type: Progress Notes Filed: 06/06/2022 12:21 PM Note Text: Document Text Patient Name: Tasneem Batista Attending Physician: GEOFFREY DENISE M.D. Date of Service: 06/06/2022 Patient is seen in today in the [facility]. CHIEF COMPLAINT: Tasneem Batista is [...] I diabetic. blood sugars 118 today. Geoffrey Denise MD June 06, 2022 12:19 PM Large Joint Arthro/Inj: R shoulder joint Informed Consent Consent Obtained: Verbal [place] Protocol A moment to CARE was completed. [...] and Plan of [facility] History of Present illness Narrative* Geoffrey Denise MD - 06/06/2022 12:19 PM EDTAssociated Order(s): Large Joint Arthro/Inj: R shoulder joint Post-Procedure Diagnose(s): Bursitis of right shoulder Document Text Patient Name: Tasneem Batista Attending Physician: GEOFFREY DENISE M.D. Date of Service: 06/06/2022 Patient is seen in today in the [facility]. CHIEF COMPLAINT: Tasneem Batista is [...] I diabetic. blood sugars 118 today. Geoffrey Denise MD June 06, 2022 12:19 PM Large Joint Arthro/Inj: R shoulder joint Informed Consent Consent Obtained: Verbal [place] Protocol A moment to CARE was completed. [...] Visit completed when applicable documented in this encounterOhio Valley Surgical Hospital09-27-2022 NoteHNO ID: [id number] Author: Geoffrey Denise MD Service: ? Author Type: Physician Type: [...] worse after PT. he sent her to [facility]. she had an xray. she doesn't [...] taking: Reported on 05/05/2022) blood sugar diagnostic (GPNX ULTRA TEST) test strip Use as instructed. [...] Sensation-normal to light touch Reflexes-N/A Special Tests-Wyatt/Marie:Positive Spee (more content not included)...[facility]-27[facility] History of Present illness Narrative* Geoffrey Denise MD - 05/30/2022 11:21 AM EDT CHIEF COMPLAINT: Patient presents with: Right Shoulder - New HISTORY OF PRESENT ILLNESS: Tasneem Batista is a 77 year old female with a history of right shoulder pain for five months. no injury or change in activity. it started hurting with gardening. it hasn't gone away. she did PT. it is worse after PT. he sent her to [facility]. she had an xray. she doesn't [...] by mouth once daily. (Patient not taking: Reportedon 05/05/2022) blood sugar diagnostic (Room n HouseUCH ULTRA TEST) test strip Use as instructed. [...] limits Sensation-normal to light touch Reflexes-N/A Special Tests-Neer/Marie:Positive Speed's Test:Negative Yergeson's Test:Negative Ocampo's Test:Negative Cross Body Adduction:Negative Apprehension:Negative pos marie/ neers. XRAYS: Final results available in epic. My [...] agrees with treatment plan. Electronically Signed: Geoffrey Denise MD May 30, 2022 11:21 AM documented in this encounterOhio Valley Surgical Hospital09-02-2022 NoteHNO ID: [id number] Author: Franck Hall, DO Service: ? Author [...] examination within the constrain (more content not included)...[facility]-02-[facility] History of Present illness Narrative* Franck Hall, DO - 05/05/2022 8:59 AM EDT Images from the original note were not included. CC: Cervical spine pain, right arm/shoulder pain SUBJECTIVE: 77 y/o female with cervical and lumbar spine pain who returns to clinic for follow up. Neck and right arm pain more severe than lumbar spine pain, focus of today's clinic visit is on her neck and armpain. Patient continues to report right sided neck pain with intermittent radiation down her right arm toher elbow. She completed 6 weeks of physical therapy with some improvement in ROM, however continues to report neck and arm pain. In addition, patient has chronic right shoulder weakness and pain dueto chronic right rotator cuff tear. Neck pain [...] incontinence, denies fever, denies night pain, denies unintentionalweight loss, denies clumsiness of hands or drooping [...] medicine for right shoulder steroid injection (Dr. Denise) -If right sided neck/shoulder/arm pain continue despite [...] the patient and discussed case with Armando Weinberg DO the medical spine fellow. I agree with above diagnosis and recommendations. Discussed with patient. Patient's cervical spine and arm symptoms likely a combination of shoulder issues as well as underlying cervical radiculitis. As above we will schedule patient for evaluation with Dr. Geoffrey Denise. In light of patient's diabetes need to be cautious with any steroid injections. Discussed option of additional interventional procedures for the cervical and lumbar spine. For herlow back or cervical spine pain could consider facet joint injections and could perform these injections without any steroid if there are significant concerns regarding iatrogenic elevation of blood sugars. Could also consider cervical epidural injection which unfortunately would need to be performed withsteroid. Patient wishes to hold off will see sports medicine and contact us in the future. Franck Hall DO documented in this encounterOhio Valley Surgical Hospital07-11-2022 NoteHNO ID: [id number] Author: Javon Turcios PT Service: ? Author [...] of Care: created on 02/09/22 through 04/12/22 [place] in home exercise program. Met Patient will [...] much better. She went too hard with Yusra last time, as she thought she needed [...] Treatment Time Minutes (timed/untimed): 31 Javon Turcios, [facility]07-11-2022 History of Present illness Narrative* Javon Turcios, PT - 03/13/2022 12:43 PM EDT Episode Visit Count: 4 Therapist That Will [...] of Care: created on 02/09/22 through 04/12/22 [place] in home exercise program. Met Patient will [...] much better. She went too hard with Yusra last time, as she thought she needed to make her shoulder hurt to get better (explained to pt this wasnot correct, and to please tell us when [...] 31 Javon Turcios PT documented in this encounterOhio Valley Surgical Hospital06-27-2022 NoteHNO ID: [id number] Author: Javon Turcios PT Service: ? Author [...] 40 Total Treatment Time Minutes (timed/untimed): 40 Yusra Peguero, ENRIQUETA Turcios, [facility]06-27-2022 History of Present illness Narrative* Javon Turcios PT - 02/27/2022 11:27 AM EDT Episode Visit Count: 3 Therapist That Will [...] 40 ENRIQUETA Karimi PT documented in this encounterOhio [facility] Hospital06-24-2022 NoteHNO ID: [id number] Author: RT Sharron(R) Service: ? Author Type: [...] IV DATA: Not applicable SIGNED BY: RT Sharron(Brandi) February 24, 2022 11:37 [facility]06-24-2022 History of Present illness Narrative* SINDHU Mcdermott) - 02/24/2022 10:40 AM EDT Radiology Service Progress Note PATIENT NAME: Tasneem Batista DATE OF SERVICE: February 24, 2022 TIME: 11:37 AM PATIENT IDENTITY VERIFICATION COMPLETED USING TWO (2) IDENTIFIERS: Name and Date of confirmedby patient verbally. FALL SCREENING: Has the patient [...] IV DATA: Not applicable SIGNED BY: RT Sharron(Brandi) February 24, 2022 11:37 AM documented in this encounterOhio Valley Surgical Hospital06-23-2022 NoteHNO ID: [id number] Author: Javon Turcios PT Service: ? Author [...] Treatment Time Minutes (timed/untimed): 39 Javon Turcios [facility]06-11-2022 NoteHNO ID: [id number] Author: Javon Turcios PT Service: ? Author [...] of Care: created on 02/09/22 through 04/12/22 [place] in home exercise program. Patient will decrease [...] Planned: 8 Planned Treatment Interventions: Therapeutic exercise (06389);Neuromuscular re-education (02480);Manual therapy (75658);Therapeutic activities (21312);Self-skilled nursing management (91825);Patient/Family/Caregiver Education;Body Mechanics Training PLAN FOR NEXT VISIT: [...] exercise program to facilit (more content not included)...[facility]06-10-2022 History of Present illness Narrative* Javon Turcios, PT - 02/10/2022 11:17 PM EDT Episode Visit Count: 1 Therapist That Will [...] She presents with impairments in ADL's, overall function,range of motion and strength. Prognosis for therapy is Good due to: current objective clinical presentation;good overall health status;acuteness of condition;positive past response to therapy;within-session changes;good support system/ coping skills . She will benefit from skilled therapy services to meet the goals established for this plan of care as noted below. Goals for Episode of Care: created on 02/09/22 through 04/12/22 [place] in home exercise program. Patient will decrease pain rating by 2 points to meet minimal clinical important difference for numeric pain rating scale. Patient will increase active ROM of R shoulder to WNL with no painful arc to allow pt to to improveperformance of ADLs. Patient will demonstrate increase in [...] Planned: 8 Planned Treatment Interventions: Therapeutic exercise (99033);Neuromuscular re- education (53168);Manual therapy (52789);Therapeutic activities (85655);Self- skilled nursing management (31999);Patient/Family/Caregiver Education;Body Mechanics Training PLAN FOR NEXT VISIT: [...] the most. Functional Limitations: heavy exertion;physical activities;lifting;recreational activities;reachingbehind back;reaching overhead;use hand with arm at shoulder [...] 40 Javon Turcios PT documented in this encounterOhio Valley Surgical Hospital05-31-2022 NoteHNO ID: [id number] Author: Franck Hall, DO Service: ? Author [...] OBJECTIVE: Vital Signs: Ht 161.3 cm (5' 3.5) Wt 67.1 kg (148 lb) BMI 25.81 [...] her underlying cervical and (more content not included)...[facility] 01-31-2022 History of Present illness Narrative* Franck Hall, DO - 01/31/2022 2:20 PM EDT [facility] January [...] PT did not focus on rotator cuff butrather on cervical stabilization exercises and lumbar core strenghtening. Continues to deal with left buttock pain and posterior thigh pain. Continued pain after prolonged sitting going to stand. Since last visit: She continues to deny bowel/bladder incontinence, denies fever, denies night pain, denies unintentional weight loss, denies clumsiness of hands or dropping things, denies clumsiness of feet, trippingor falling. Denies any constitutional or myelopathic symptomatology. [...] OBJECTIVE: Vital Signs: Ht 161.3 cm (5' 3.5) Wt 67.1 kg (148 lb) BMI 25.81 [...] sense that escaped review. documented in this encounterOhio Valley Surgical Hospital05-20-2022 NoteHNO ID: [id number] Author: Chucho Yuan PT Service: ? 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 All specifications for custom foot orthotics can be found in orthotic evaluation visit note. Planned Interventions: Follow up as needed for brace fitting/issues. Billing:[facility]: Orthotics Management and Training (60376): 1:1 time: 20 minutes (1 unit: 8-22 mins) Equipment: [id number] refurbished pair of custom foot orthotics Total time: 20 minutes Chucho Yuan [facility]05-16-2022 NoteHNO ID: [id number] Author: Eleno Reyna MD Service: ? Author Type: Physician Type: Progress Notes Filed: 01/16/2022 10:27 AM Note Text: Eleno Reyna MD Department of Orthopaedics Orthopaedics [address] [place] [address] Dept: [phone] Dept January 16, 2022 Consultation requested by [...] by Dr. Hall. X-rays done today at [facility]. AMB ROOMING INTAKE FLOWSHEET DATA Risk Screening [...] and findings of chronic rotator cuff arthropathy/tearing. Graining Press Operator: RANDI ? Transcribe Date/Time: Jan 16 2022 [...] CONDYLEANDPLATU MEDIALANDLAT COMPARTMENTS 01 (more content not included)...[facility]05-16-2022 NoteHNO ID: [id number] Author: RT Ramón(R) Service: ? Author Type: Technologist Type: Progress [...] BY: RT Ramón(R) January 16, 2022 7:49 [facility]05-16-2022 History of Present illness Narrative* Eleno Reyna MD - 01/16/2022 8:04 AM EDT Eleno Reyna MD Department of Orthopaedics Orthopaedics [address] [place] [id number] Dept: [phone] Dept January 16, 2022 Consultation requested by Chucho Yuan PT for an opinion regarding right shoulder pain. My final recommendations will be communicated back to the requesting physician by way of shared Medical recordor letter to requesting physician via US mail. CHIEF COMPLAINT: New of the Right Shoulder and Referred by Chucho Yuan HPI Patient states she has pain when she raising her arm upward and out. No specific injury. Patient isright hand dominant. She does mcfadden a lot of knitting. Taking Gabapentin for the pain at night and helps her sleep. Has been seeing Chucho in PT for her neck and back pain referred by Dr. Hall. X-rays done today at [facility]. AMB ROOMING INTAKE FLOWSHEET DATA Risk Screening [...] FOLLOW UP INSTRUCTIONS: As above Ms. Tasneem aBtista was advised as to contrast therapies and/or [...] and findings of chronic rotator cuff arthropathy/tearing. Graining Press Operator: RANDI Transcribe Date/Time: Jan 16 2022 9:46A [...] needles, DISPOSABLE, (PEN NEEDLE) 31 gauge x 16 ndle Use one needle per dose. 4 [...] PHYSICIAN: Ms. Tasneem Batista was referred to me for consultation by the following physician. This consultation note will be sent to the following physician by either mail or electronic medical record. CHUCHO YUAN No primary care provider on file. No primary provider on file. Eleno Reyna MD documented in this encounterOhio Valley Surgical Hospital05-16-2022 History of Present illness Narrative* RT Ramón(R) - 01/16/2022 7:30 AM EDT Radiology Service Progress Note PATIENT NAME: Tasneem Batista DATE OF SERVICE: January 16, 2022 TIME: 7:49 AM PATIENT IDENTITY VERIFICATION COMPLETED USING TWO (2) IDENTIFIERS: Name and Date of confirmedby patient verbally. FALL SCREENING: Has the patient had 2 falls in the last year or 1 fall with injury or currently using an Ambulatory Assistive Device (Walker, Cane, Wheelchair, Crutches, etc.)? No PATIENT GENDER DATA: Female. status: : No status: NO. PATIENT RELEVANT IMPLANT DATA REVIEWED: Not Applicable RADIOLOGY DEPARTMENT: General X-ray: Exam(s) Completed: Upper Extremity X- Ray(s): Shoulder, AP / TRUE AP / AXILLARY right PERIPHERAL IV DATA: Not applicable SIGNED BY: RT Ramón(R) January 16, 2022 7:49 AM documented in this encounterOhio Valley Surgical Hospital05-11-2022 NoteHNO ID: [id number] Author: Chucho Yuan PT Service: ? Author [...] and treatment included: Therapeutic exercise, Manual therapy, Self-skilled nursing management, Patient/Family/Caregiver Education and Body mechanics training. [...] Trunk Strength: improved TREATMENT: Therapeutic Exercise: 1: ToperaFit StepOne seat #10 x6 minutes (Subjective taken and discussed progress related to goals. Future plan of care options discussed.) 2: Seated cervical retraction 2x10 3: Seated scapular retraction 2x10 4: seated B UT stretch 3x30 seconds 5: seated B levator scapulae stretch 3x30 seconds (reviewed and corrected for HEP) 6: seated B shoulder flexion and abduction with rope (more content not included)...[facility]05-11-2022 History of Present illness Narrative* Chucho Yuan, PT - 01/11/2022 4:39 PM EDT Episode Visit Count: 8 Therapist That Will [...] and treatment included: Therapeutic exercise, Manual therapy, Self- skilled nursing management, Patient/Family/Caregiver Education and Body mechanics training. [...] would have without PT. She reports that herstanding and walking tolerance are both improved. She reports improved driving tolerance but that Rshoulder still limits her ability and tolerance for [...] Trunk Strength: improved TREATMENT: Therapeutic Exercise: 1: ToperaFit StepOne seat #10 x6 minutes (Subjective taken [...] 40 Chucho Yuan PT documented in this encounterOhio Valley Surgical Hospital05-09-2022 NoteHNO ID: [id number] Author: Chucho Yuan PT Service: ? Author [...] Total Treatment Time Minutes (timed/untimed): 45 ENRIQUETA Karimi, [facility]05-09-2022 History of Present illness Narrative* Chucho Yuan, PT - 01/09/2022 11:41 AM EDT Episode Visit Count: 7 Therapist That Will [...] tolerance to exercises in therapy today.. The patientwill continue to benefit from ongoing skilled physical [...] 45 ENRIQUETA Karimi PT documented in this encounterOhio Valley Surgical Hospital05-04-2022 NoteHNO ID: [id number] Author: Chucho Yuan PT Service: ? Author [...] SciFit StepOne seat #10 x5 minutes (Discussed progress [...] Treatment Time Minutes (timed/untimed): 50 Chucho Yuan [facility]05-02-2022 NoteHNO ID: [id number] Author: Chucho Yuan PT Service: ? Author [...] 41 Total Treatment Time Minutes (timed/untimed): 41 Yusra ENRIQUETA Peguero, [facility]04-28-2022 NoteHNO ID: [id number] Author: Chucho Yuan PT Service: ? Author [...] worse and low back better and fairly good) Post Treatment Symptoms: After session today, pt [...] Treatment Time Minutes (timed/untimed): 45 Chucho Yuan [facility]04-28-2022 History of Present illness Narrative* Chucho Yuan PT - 12/29/2021 10:16 AM EDT Episode Visit Count: 4 Therapist That Will [...] PT appointment earlier in the week because ofthe pain in her neck. She reports compliance [...] worse and low back better and fairly good) Post Treatment Symptoms: After session today, pt reported that R side of neck is slightly worse butlow back pain was less. OBJECTIVE MEASURES WITH LEVEL OF FUNCTION: Posture / Alignment Posture: Forward head;Increased thoracic kyphosis;Rounded shoulders Special Tests - Cervical Cervical Special Tests: Spurling Spurling: Right Negative Special Tests - Shoulder Shoulder Special Tests: Marie-Cresencio;Empty Can Empty Can: Right Positive Marie-Cresencio: Right Positive TREATMENT: Therapeutic Exercise: 1: ToperaFit StepOne seat #10 x5 minutes (Subjective collected [...] 45 Chucho Yuan PT documented in this encounterOhio Valley Surgical Hospital04-20-2022 NoteHNO ID: [id number] Author: Chucho Yuan PT Service: ? Author [...] She reports driving for 45 minutes to [employer] yesterday and this caused symptoms in B [...] thoracic kyphosis;Rounded shoulders TREATMENT: Therapeutic Exercise: 1: ToperaFit StepOne seat #10 x5 minutes (Subjective collected [...] Treatment Time Minutes (timed/untimed): 60 Chucho Yuan [facility]04-20-2022 History of Present illness Narrative* Chucho Yuan, PT - 12/21/2021 11:08 AM EDT Episode Visit Count: 3 Therapist That Will [...] and exercise tolerance. The patient will continue tobenefit from ongoing skilled physical therapy to progress [...] She reports driving for 45 minutes to [employer] yesterday and this caused symptoms in B [...] reported that she received a good workout butshe denied any increase in pain. Overall she [...] 60 Chucho Yuan PT documented in this encounterOhio Valley Surgical Hospital04-14-2022 NoteHNO ID: [id number] Author: Chucho Yuan PT Service: ? Author [...] Treatment Time Minutes (timed/untimed): 45 Chucho Yuan [facility]04-14-2022 History of Present illness Narrative* Chucho Yuan PT - 12/15/2021 2:47 PM EDT Episode Visit Count: 2 Therapist That Will [...] thoracic kyphosis;Rounded shoulders TREATMENT: Therapeutic Exercise: 1: AdelaVoice StepOne seat #10 x5 minutes (Subjective collected [...] 45 Chucho Yuan PT documented in this encounterOhio Valley Surgical Hospital04-13-2022 NoteHNO ID: [id number] Author: Chucho Yuan PT Service: ? Author [...] Planned: 10 Planned Treatment Interventions: Therapeutic exercise (52847);Neuromuscular re-education (05584);Manual therapy (48742);Therapeutic activities (71778);Self-skilled nursing management (96530);Patient/Family/Caregiver Education;Body Mechanics Training PLAN FOR NEXT VISIT: [...] Equina Syndrome Clinical Re (more content not included)...[facility]04-12-2022 History of Present illness Narrative* Chucho Yuan PT - 12/13/2021 10:03 PM EDT Episode Visit Count: 1 Therapist That Will [...] Planned: 10 Planned Treatment Interventions: Therapeutic exercise (96258);Neuromuscular re- education (93362);Manual therapy (57158);Therapeutic activities (41927);Self- skilled nursing management (62397);Patient/Family/Caregiver Education;Body Mechanics Training PLAN FOR NEXT VISIT: [...] Proceed with caution due to the above (1- 2) risk factors Abdominal Aortic Aneurysm Clinical Reasoning: [...] Since Onset: Unchanging Pain is Worse Always: Standing;Walking;Rising;Prolonged positions Pain is Better Always: Sitting;Rest (heat) Previous Episodes: Yes Previous Spine Episodes: chronic neck and back pain Sleeping Position: Side lying left Sleep Affected by Pain: Pain awakens Pain: Pain Pain Level: 3 Pain Location: Neck Description: (annoying hurt) Frequency: Continuous (constant but varies in intensity. [...] Right Negative;Left Positive Education: Education Learning Preferences: Demonstration;Explanation;Performance;Printed Materials Barriers: None Learning/educational needs: Plan of Care;Home exercise program;Posture;Body Mechanics;Lifestyle changes Education Provided: Yes, see treatment interventions for education provided Education Provided To: Patient Education Mode/Type: Demonstration;Explanation/Discussion;Literature/Printed Materials;Performance Response to Education/Teach Back: States/Identifies;Requires Review/Additional [...] on lumbar and cervical spines. She was urgedto stop any exercise that causes increased pain. [...] 15 Chucho Yuan PT documented in this encounterOhio Valley Surgical Hospital04-06-2022 NoteHNO ID: [id number] Author: RT Dano(Brandi) Service: Nuclear Medicine Author Type: Technologist Type: [...] BY: RT Dano(R) December 07, 2021 11:18 [facility]04-06-2022 History of Present illness Narrative* Ally Segura RT(R) - 12/07/2021 11:30 AM EDT Radiology Service Progress Note PATIENT NAME: Tasneem Batista DATE OF SERVICE: December 07, 2021 TIME: 11:18 AM PATIENT IDENTITY VERIFICATION COMPLETED USING TWO (2) IDENTIFIERS: Name and Date of confirmedby patient verbally. FALL SCREENING: Has the patient [...] RT Dano(R) December 07, 2021 11:18 AM documented in this encounterOhio Valley Surgical Hospital04-05-2022 NoteHNO ID: [id number] Author: Franck Hall, DO Service: ? Author [...] Knee replacement, total, left - BLEPHAROPLASTY EXTENSIVE 2005 Bilateral eyes - BREAST BIOPSY 1995 - [...] HISTORY Problem Relation Age (more content not included)...[facility] 12-06-2021 Instructions* Patient Instructions* Franck Hall, - 12/06/2021 12:59 PM EDT Images from the original note were not included. Chronic Lumbar Radiculopathy (Leg Pain) Overview: Symptoms of a pinched nerve in the leg (lumbar radiculopathy) include numbness, tingling and evenweakness. Leg pain is usually worse than back [...] (Tylenol) is recommended if you cannot take anti- inflammatory medications. Medications effective for nerve pain such as gabapentin (Neurontin), pregabalin (Lyrica) or some antidepressants may be helpful for leg pain. A short course of oral steroids (prednisone or Medrol) may help alleviate severe, acute inflammation. For persistent pain despite oral medications and physical therapy, an epidural corticosteroid injection (block) may be recommended if an MRI or CT scan confirms nerve impingement (pinched nerve). Remaining as active as possible and resuming [...] 2021 TIME: 12:59 PM documented in this encounterOhio Valley Surgical Hospital04-05-2022 History of Present illness Narrative* Franck Hall DO - 12/06/2021 12:57 PM EDT Images from the original note [...] 2004 Knee replacement, total, left BLEPHAROPLASTY EXTENSIVE 2005 Bilateral eyes BREAST BIOPSY 1996 CARPAL TUNNEL 2009 bilateral wrist CHOLECYSTECTOMY 1994 Cholecystectomy COLONOSCOPY FLX DX W/COLLJ SPEC WHEN PFRMD 07/19/10 COLSC FLX W/REMOVAL LESION BY HOT BX FORCEPS 09/12/11` ascending colon, f/u 3 years EGD TRANSORAL BIOPSY SINGLE/MULTIPLE 09/12/11 gastritis with erosions, hiatal hernia with erosions EXCISION GANGLION WRIST DORSAL/VOLAR PRIMARY 08/06/2012 Excision of deep subfascial mass right wrist TONSILLECTOMY PRIMARY/SECONDARY <AGE 11 1950 Tonsillectomy TOTAL ABDOMINAL HYSTERECT W/WO RMVL TUBE OVARY 2000 Hysterectomy, ELA Social History Tobacco Use Smoking status: Never [...] mouth daily at bedtime. blood sugar diagnostic (AnagearTOUCH ULTRA TEST) test strip Use as instructed. Tests blood sugars 5 times a day. Dx: 250.01. insulin needles, DISPOSABLE, (PEN NEEDLE) 31 gauge x 16 ndle Use one needle per dose. 4 [...] OBJECTIVE: PHYSICAL EXAM Ht 160 cm (5' 3) Wt 66.7 kg (147 lb) BMI 26.04 [...] 2021 TIME: 12:59 PM documented in this encounterOhio Valley Surgical Hospital03-08-2016 History of Past illness Narrative* Problem Noted Date Resolved Date Type 1 diabetes mellitus without complication 02/09/2016 Type 1 diabetes mellitus without complications 0 03/27/2014 11/09/2015 Type 1 diabetes mellitus 10/12/2011 016 Overview: JAKUB presentation in 2011. Insulin:carbohyrate ratio 1:2 at breakfast, 1:3 at lunch and supper, insulin sensitivity index 1:30. Palpitations 05/12/2010 02/03/2013 Overview: Dx unclear. Seen by Dr Alana Wilson in [place]. Told normal part of aging Cardizem started. Nuclear stress testing ?2004 normal ECHO 2008 (no report) documented as of this encounter (statuses as of 12/08/2021) [facility] of Past illness Narrative* Problem Noted Date Resolved Date Type 1 diabetes mellitus without complication 02/09/2016 Type 1 diabetes mellitus without complications 0 03/27/2014 11/09/2015 Type 1 diabetes mellitus 10/12/2011 016 Overview: JAKUB presentation in 2011. Insulin:carbohyrate ratio 1:2 at breakfast, 1:3 at lunch and supper, insulin sensitivity index 1:30. Palpitations 05/12/2010 02/03/2013 Overview: Dx unclear. Seen by Dr Alana Wilson in [place]. Told normal part of aging Cardizem started. Nuclear stress testing ?2004 normal ECHO 2008 (no report) documented as of this encounter (statuses as of 12/14/2021) [facility] of Past illness Narrative* Problem Noted Date Resolved Date Type 1 diabetes mellitus without complication 02/09/2016 Type 1 diabetes mellitus without complications 0 03/27/2014 11/09/2015 Type 1 diabetes mellitus 10/12/2011 016 Overview: JAKUB presentation in 2011. Insulin:carbohyrate ratio 1:2 at breakfast, 1:3 at lunch and supper, insulin sensitivity index 1:30. Palpitations 05/12/2010 02/03/2013 Overview: Dx unclear. Seen by Dr Alana Wilson in [place]. Told normal part of aging Cardizem started. Nuclear stress testing ?2004 normal ECHO 2008 (no report) documented as of this encounter (statuses as of 12/15/2021) [facility] of Past illness Narrative* Problem Noted Date Resolved Date Type 1 diabetes mellitus without complication 02/09/2016 Type 1 diabetes mellitus without complications 0 03/27/2014 11/09/2015 Type 1 diabetes mellitus 10/12/2011 016 Overview: JAKUB presentation in 2011. Insulin:carbohyrate ratio 1:2 at breakfast, 1:3 at lunch and supper, insulin sensitivity index 1:30. Palpitations 05/12/2010 02/03/2013 Overview: Dx unclear. Seen by Dr Alana Wilson in [place]. Told normal part of aging Cardize started. Nuclear stress testing ?2004 normal ECHO 2008 (no report) documented as of this encounter (statuses as of 12/21/2021) [facility] of Past illness Narrative* Problem Noted Date Resolved Date Type 1 diabetes mellitus without complication 02/09/2016 Type 1 diabetes mellitus without complications 0 03/27/2014 11/09/2015 Type 1 diabetes mellitus 10/12/2011 016 Overview: JAKUB presentation in 2011. Insulin:carbohyrate ratio 1:2 at breakfast, 1:3 at lunch and supper, insulin sensitivity index 1:30. Palpitations 05/12/2010 02/03/2013 Overview: Dx unclear. Seen by Dr Alnaa Wilson in [place]. Told normal part of aging Cardizem started. Nuclear stress testing ?2004 normal ECHO 2008 (no report) documented as of this encounter (statuses as of 12/29/2021) [facility] of [facility] illness Narrative* Problem Noted Date Resolved Date Type 1 diabetes mellitus without complication 02/09/2016 Type 1 diabetes mellitus without complications 0 03/27/2014 11/09/2015 Type 1 diabetes mellitus 10/12/2011 016 Overview: JAKUB presentation in 2011. Insulin:carbohyrate ratio 1:2 at breakfast, 1:3 at lunch and supper, insulin sensitivity index 1:30. Palpitations 05/12/2010 02/03/2013 Overview: Dx unclear. Seen by Dr Alana Wilson in [place]. Told normal part of aging Cardizem started. Nuclear stress testing ?2004 normal ECHO 2008 (no report) documented as of this encounter (statuses as of 01/09/2022) [facility] of Past illness Narrative* Problem Noted Date Resolved Date Type 1 diabetes mellitus without complication 02/09/2016 Type 1 diabetes mellitus without complications 0 03/27/2014 11/09/2015 Type 1 diabetes mellitus 10/12/2011 016 Overview: JAKUB presentation in 2011. Insulin:carbohyrate ratio 1:2 at breakfast, 1:3 at lunch and supper, insulin sensitivity index 1:30. Palpitations 05/12/2010 02/03/2013 Overview: Dx unclear. Seen by Dr Alana Wilson in [place]. Told normal part of aging Cardizem started. Nuclear stress testing ?2004 normal ECHO 2008 (no report) documented as of this encounter (statuses as of 01/10/2022) [facility] of [facility] illness Narrative* Problem Noted Date Resolved Date Type 1 diabetes mellitus without complication 02/09/2016 Type 1 diabetes mellitus without complications 0 03/27/2014 11/09/2015 Type 1 diabetes mellitus 10/12/2011 016 Overview: JAKUB presentation in 2011. Insulin:carbohyrate ratio 1:2 at breakfast, 1:3 at lunch and supper, insulin sensitivity index 1:30. Palpitations 05/12/2010 02/03/2013 Overview: Dx unclear. Seen by Dr Alana Wilson in [place]. Told normal part of aging Cardizem started. Nuclear stress testing ?2004 normal ECHO 2008 (no report) documented as of this encounter (statuses as of 01/11/2022) [facility]03-[facility]2016 History of Past illness Narrative* Problem Noted Date Resolved Date Type 1 diabetes mellitus without complication 02/09/2016 Type 1 diabetes mellitus without complications 0 03/27/2014 11/09/2015 Type 1 diabetes mellitus 10/12/2011 016 Overview: JAKUB presentation in 2011. Insulin:carbohyrate ratio 1:2 at breakfast, 1:3 at lunch and supper, insulin sensitivity index 1:30. Palpitations 05/12/2010 02/03/2013 Overview: Dx unclear. Seen by Dr Alana Wilson in [place]. Told normal part of aging Cardizem started. Nuclear stress testing ?2004 normal ECHO 2008 (no report) documented as of this encounter (statuses as of 01/16/2022) [facility] History of Past illness Narrative* Problem Noted Date Resolved Date Type 1 diabetes mellitus without complication 02/09/2016 Type 1 diabetes mellitus without complications 0 03/27/2014 11/09/2015 Type 1 diabetes mellitus 10/12/2011 016 Overview: JAKUB presentation in 2011. Insulin:carbohyrate ratio 1:2 at breakfast, 1:3 at lunch and supper, insulin sensitivity index 1:30. Palpitations 05/12/2010 02/03/2013 Overview: Dx unclear. Seen by Dr Alana Wilson in [place]. Told normal part of aging Cardizem started. Nuclear stress testing ?2004 normal ECHO 2008 (no report) documented as of this encounter (statuses as of 01/17/2022) [facility] History of Past illness Narrative* Problem Noted Date Resolved Date Type 1 diabetes mellitus without complication 02/09/2016 Type 1 diabetes mellitus without complications 0 03/27/2014 11/09/2015 Type 1 diabetes mellitus 10/12/2011 016 Overview: JAKUB presentation in 2011. Insulin:carbohyrate ratio 1:2 at breakfast, 1:3 at lunch and supper, insulin sensitivity index 1:30. Palpitations 05/12/2010 02/03/2013 Overview: Dx unclear. Seen by Dr Alaan Wilson in [place]. Told normal part of aging Cardizem started. Nuclear stress testing ?2004 normal ECHO 2008 (no report) documented as of this encounter (statuses as of 02/08/2022) [facility] History of Past illness Narrative* Problem Noted Date Resolved Date Type 1 diabetes mellitus without complication 02/09/2016 Type 1 diabetes mellitus without complications 0 03/27/2014 11/09/2015 Type 1 diabetes mellitus 10/12/2011 016 Overview: JAKUB presentation in 2011. Insulin:carbohyrate ratio 1:2 at breakfast, 1:3 at lunch and supper, insulin sensitivity index 1:30. Palpitations 05/12/2010 02/03/2013 Overview: Dx unclear. Seen by Dr Alana Wilson in [place]. Told normal part of aging Cardizem started. Nuclear stress testing ?2004 normal ECHO 2008 (no report) documented as of this encounter (statuses as of 02/11/2022) [facility] History of Past illness Narrative* Problem Noted Date Resolved Date Type 1 diabetes mellitus without complication 02/09/2016 Type 1 diabetes mellitus without complications 0 03/27/2014 11/09/2015 Type 1 diabetes mellitus 10/12/2011 016 Overview: JAKUB presentation in 2011. Insulin:carbohyrate ratio 1:2 at breakfast, 1:3 at lunch and supper, insulin sensitivity index 1:30. Palpitations 05/12/2010 02/03/2013 Overview: Dx unclear. Seen by Dr Alana Wilson in [place]. Told normal part of aging Cardizem started. Nuclear stress testing ?2004 normal ECHO 2008 (no report) documented as of this encounter (statuses as of 02/25/2022) [facility] History of Past illness Narrative* Problem Noted Date Resolved Date Type 1 diabetes mellitus without complication 02/09/2016 Type 1 diabetes mellitus without complications 0 03/27/2014 11/09/2015 Type 1 diabetes mellitus 10/12/2011 016 Overview: JAKUB presentation in 2011. Insulin:carbohyrate ratio 1:2 at breakfast, 1:3 at lunch and supper, insulin sensitivity index 1:30. Palpitations 05/12/2010 02/03/2013 Overview: Dx unclear. Seen by Dr Alana Wilson in [place]. Told normal part of aging Cardizem started. Nuclear stress testing ?2004 normal ECHO 2008 (no report) documented as of this encounter (statuses as of 02/27/2022) [facility] History of Past illness Narrative* Problem Noted Date Resolved Date Type 1 diabetes mellitus without complication 02/09/2016 Type 1 diabetes mellitus without complications 0 03/27/2014 11/09/2015 Type 1 diabetes mellitus 10/12/2011 016 Overview: JAKUB presentation in 2011. Insulin:carbohyrate ratio 1:2 at breakfast, 1:3 at lunch and supper, insulin sensitivity index 1:30. Palpitations 05/12/2010 02/03/2013 Overview: Dx unclear. Seen by Dr Alana Wilson in [place]. Told normal part of aging Cardizem started. Nuclear stress testing ?2004 normal ECHO 2008 (no report) documented as of this encounter (statuses as of 03/13/2022) [facility] History of Past illness Narrative* Problem Noted Date Resolved Date Type 1 diabetes mellitus without complication 02/09/2016 Type 1 diabetes mellitus without complications 0 03/27/2014 11/09/2015 Type 1 diabetes mellitus 10/12/2011 016 Overview: JAKUB presentation in 2011. Insulin:carbohyrate ratio 1:2 at breakfast, 1:3 at lunch and supper, insulin sensitivity index 1:30. Palpitations 05/12/2010 02/03/2013 Overview: Dx unclear. Seen by Dr Alana Wilson in [place]. Told normal part of aging Cardize started. Nuclear stress testing ?2004 normal ECHO 2008 (no report) documented as of this encounter (statuses as of 05/05/2022) [facility] History of Past illness Narrative* Problem Noted Date Resolved Date Type 1 diabetes mellitus without complication 02/09/2016 Type 1 diabetes mellitus without complications 0 03/27/2014 11/09/2015 Type 1 diabetes mellitus 10/12/2011 016 Overview: JAKUB presentation in 2011. Insulin:carbohyrate ratio 1:2 at breakfast, 1:3 at lunch and supper, insulin sensitivity index 1:30. Palpitations 05/12/2010 02/03/2013 Overview: Dx unclear. Seen by Dr Alana Wilson in [place]. Told normal part of aging Cardizem started. Nuclear stress testing ?2004 normal ECHO 2008 (no report) documented as of this encounter (statuses as of 06/06/2022) [facility] History of Past illness Narrative* Problem Noted Date Resolved Date Type 1 diabetes mellitus without complication 02/09/2016 Type 1 diabetes mellitus without complications 0 03/27/2014 11/09/2015 Type 1 diabetes mellitus 10/12/2011 016 Overview: JAKUB presentation in 2011. Insulin:carbohyrate ratio 1:2 at breakfast, 1:3 at lunch and supper, insulin sensitivity index 1:30. Palpitations 05/12/2010 02/03/2013 Overview: Dx unclear. Seen by Dr Alana Wilson in [place]. Told normal part of aging Cardizem started. Nuclear stress testing ?2004 normal ECHO 2008 (no report) documented as of this encounter (statuses as of 06/28/2022) [facility] History of Past illness Narrative* Problem Noted [...] unclear. Seen by Dr Alana Wilson in [place]. Told normal part of aging Cardizem started. Nuclear stress testing ?2004 normal ECHO 2008 (no report) documented as of this encounter (statuses as of 03/14/2023) [facility] History of Past illness Narrative* Problem Noted [...] unclear. Seen by Dr Alana Wilson in [place]. Told normal part of aging Cardizem started. Nuclear stress testing ?2004 normal ECHO 2008 (no report) documented as of this encounter (statuses as of 03/14/2023) [facility] History of Past illness Narrative* Problem Noted [...] unclear. Seen by Dr Alana Wilson in [place]. Told normal part of aging Cardizem started. Nuclear stress testing ?2004 normal ECHO 2008 (no report) documented as of this encounter (statuses as of 07/25/2023) [facility] History of Past illness Narrative* Problem Noted [...] unclear. Seen by Dr Alana Wilson in [place]. Told normal part of aging Cardizem started. Nuclear stress testing ?2004 normal ECHO 2008 (no report) documented as of this encounter (statuses as of 08/02/2023) [facility] History of Past illness Narrative* Problem Noted [...] unclear. Seen by Dr Alana Wilson in [place]. Told normal part of aging Cardizem started. Nuclear stress testing ?2004 normal ECHO 2009 (no report) documented as of this encounter (statuses as of 08/09/2023) [facility]* Diagnosis Radiculopathy, cervical region- Primary Brachial neuritis or radiculitis nos Intervertebral 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 Thoracic or lumbosacral neuritis or radiculitis, unspecified [facility] Diagnosis Radiculopathy, cervical region Brachial neuritis or radiculitis nos Intervertebral 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 Thoracic or lumbosacral neuritis or radiculitis, unspecified [facility] Diagnosis Radiculopathy, cervical region- Primary Brachial neuritis or radiculitis nos Spinal stenosis, lumbar region, without neurogenic claudication [facility]* Diagnosis Radiculopathy, cervical region- Primary Brachial neuritis or radiculitis nos Spinal stenosis, lumbar region, without neurogenic claudication [facility]* Diagnosis Radiculopathy, cervical region- Primary Brachial neuritis or radiculitis nos Spinal stenosis, lumbar region, without neurogenic claudication [facility] Diagnosis Radiculopathy, cervical region- Primary Brachial neuritis or radiculitis nos Spinal stenosis, lumbar region, without neurogenic claudication [facility]* Diagnosis Right shoulder pain, unspecified chronicity- Primary [facility]* Diagnosis Radiculopathy, cervical region- Primary Brachial neuritis or radiculitis nos Spinal stenosis, lumbar region, without neurogenic claudication [facility]* Diagnosis Acute pain of right shoulder- Primary Nontraumatic complete tear of right rotator cuff [facility]* Diagnosis Right shoulder pain, unspecified chronicity [facility]* Diagnosis Tendinopathy of rotator cuff, right- Primary Cervicalgia Radiculopathy, cervical region Brachial neuritis or radiculitis nos Gluteal tendinitis, unspecified laterality Spinal stenosis of lumbar region without neurogenic claudication Spinal stenosis, lumbar region, without neurogenic claudication Bladder dysfunction Other functional disorder of bladder Spinal stenosis of cervical region Spinal stenosis in cervical region [facility]* Diagnosis Tendinopathy of rotator cuff, right- Primary [facility]* Diagnosis Spinal stenosis of lumbar region without neurogenic claudication Spinal stenosis, lumbar region, without neurogenic claudication Cervicalgia Radiculopathy, cervical region Brachial neuritis or radiculitis nos Bladder dysfunction Other functional disorder of bladder Spinal stenosis of cervical region Spinal stenosis in cervical region [facility]* Diagnosis Tendinopathy of rotator cuff, right- Primary [facility]* Diagnosis Tendinopathy of rotator cuff, right- Primary [facility]* Diagnosis Cervicalgia- Primary Right shoulder pain, unspecified chronicity Radiculopathy, cervical region Brachial neuritis or radiculitis nos Nontraumatic tear of right rotator cuff, unspecified tear extent Spinal stenosis, lumbar region with neurogenic claudication [facility] Diagnosis Bursitis of right shoulder- Primary Disorders of bursae and tendons in shoulder region, unspecified [facility]* Diagnosis Onset Date Resolution Status Diabetic neuropathy chronic Hypertension chronic Overactive bladder chronic Diabetes chronic Diabetic neuropathy chronic Hypertension chronic Diabetes type 1, controlled chronic 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 Hypertension chronic [facility] Work Phone: Evaluation note* Diagnosis Right shoulder pain, unspecified chronicity [facility]* Diagnosis Onset Date Resolution Status Diabetes type 1, controlled chronic 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 Hypertension chronic Diabetic neuropathy chronic Hypertension chronic Overactive bladder chronic Diabetes type 1, controlled chronic Diabetic neuropathy chronic Epigastric pain chronic Hypertension chronic Action tremor acute Difficulty swallowing acute GERD (gastroesophageal reflux disease) acute Hypertension chronic Insulin dependent diabetes mellitus chronic Anemia acute Difficulty swallowing acute GERD (gastroesophageal reflux disease) acute [facility] Work Phone: Evaluation note* Diagnosis Onset Date Resolution Status Diabetes type 1, controlled chronic Diabetic neuropathy chronic Epigastric pain chronic Hypertension chronic Action tremor acute Difficulty swallowing acute GERD (gastroesophageal reflux disease) acute Hypertension chronic Insulin dependent diabetes mellitus chronic Anemia acute Difficulty swallowing acute GERD (gastroesophageal reflux disease) acute [facility] Work Phone: Evaluation note* Diagnosis Paraesophageal hernia- Primary Diaphragmatic hernia without mention of obstruction or gangrene Gastroesophageal reflux disease without esophagitis Esophageal reflux Hyperlipidemia, unspecified hyperlipidemia type Esophageal dysphagia Dysphagia, pharyngoesophageal phase Swelling of lower extremity Type 2 diabetes mellitus with other specified complication, with long-term current use of insulin ([facility]) Esophageal dysphagia Dysphagia, pharyngoesophageal phase documented in this encounter [facility]* Diagnosis Onset Date Resolution Status Diabetes type 1, controlled chronic Hiatal hernia chronic Hypertension chronic GERD (gastroesophageal reflux disease) chronic Hiatal hernia chronic Hyperlipidemia chronic Hypertension chronic Bilateral lower extremity edema chronic GERD (gastroesophageal reflux disease) chronic Hiatal hernia chronic Hypertension chronic Diabetes type 1, controlled chronic Hypertension [facility] Work Phone: Evaluation note* Diagnosis Onset Date Resolution Status Bilateral lower extremity edema chronic GERD (gastroesophageal reflux disease) chronic Hiatal hernia chronic Hypertension chronic Diabetes type 1, controlled chronic Hypertension chronic CKD (chronic kidney disease) stage 3, GFR 30-59 ml/min chronic Diabetes type 1, controlled chronic Hypertension chronic Overweight [facility] Work Phone: Evaluation note* Diagnosis Onset Date Resolution Status CKD (chronic kidney disease) stage 3, GFR 30-59 ml/min chronic Diabetes type 1, controlled chronic Hypertension chronic Overweight chronic Health care maintenance acut e GERD (gastroesophageal reflux disease) chronic Hyperlipidemia chronic Hypertension [facility] Work Phone: Evaluation note* Diagnosis Paraesophageal hernia- Primary Diaphragmatic hernia without mention of obstruction or gangrene Gastroesophageal reflux disease without esophagitis Esophageal reflux Hyperlipidemia, unspecified hyperlipidemia type Type 2 diabetes mellitus with other specified complication, with long-term current use of insulin ([facility]) [facility] this encounter [facility]* Diagnosis Onset Date Resolution Status CKD (chronic kidney disease) stage 3, GFR 30-59 ml/min chronic Diabetes type 1, controlled chronic Hypertension chronic Overweight chronic Health care maintenance acut e GERD (gastroesophageal reflux disease) chronic Hyperlipidemia chronic Hypertension chronic Diabetes type 1, controlled chronic Hypertension chronic Overweight chronic Vitamin D 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 [facility] Work Phone: Evaluation note* Diagnosis Onset Date Resolution Status Diabetes type 1, controlled chronic Hypertension chronic Overweight chronic 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 D 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 Carpal tunnel syndrome of left wrist acute Carpal tunnel syndrome of left wrist acute Muscle wasting and atrophy, not elsewhere classified, left hand acute Ulnar neuropathy acute CKD (chronic kidney disease) stage 3, GFR 30-59 ml/min chronic Diabetes type 1, controlled chronic Hypertension chronic Overweight chronic [facility] Work Phone: Evaluation note* Diagnosis Radiculopathy, cervical region Brachial neuritis or radiculitis nos Intervertebral 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 Thoracic or lumbosacral neuritis or radiculitis, unspecified [facility] encounter [facility] Author Dr. Cantu [facility] November 10, 2022 8:16am Note Date/Time November 10, 2022 8:1 6am [facility] Medical Records Department [address] [place] [address] History & Physical Exam 11/10/22 0815 MR#: [id number] Acct: [id number] Name: TASNEEM BATISTA Rep #:[id number] : 1945 77 From: Deangelo floyd MD PCP: Dr. Good Mcguire MD Status:[facility] Location: [place] [address] History and Physical Date of Admission: 11/10/22 Intake Vital Signs ? 10/05/2309:11 Weight: 150 lb BP 128/86 H Blood Pressure Location Rt brachial Position Sitting Respiration 17 Pulse 74 Pulse Source Monitor Temp 97.6 F L Temp Source Temporal Pulse Oximetry (%) 98 Oxygen Delivery Method room air Intake Visit Reasons:?Acid reflux Chief Complaint: acid reflux Allergies codeine Allergy (Severe, Verified 10/05/22 10:13) UnknownSulfa (Sulfonamide Antibiotics) Allergy (Severe, Verified 10/05/22 10:13) UnknownPenicillins Allergy (Mild, Verified 10/05/22 10:13) Rash Medications calcium carbonate 600 mg-vitamin D3 20 mcg (800 unit) chewable tablet (Caltrate 600 plus D) 1 tab PO BID 08/29/17 [History Confirmed 10/05/22] OneTouch Ultra Blue Test Strip (blood sugar diagnostic) #270 ea 10/07/18 [Rx Confirmed 10/05/22] cetirizine 10 mg capsule (Zyrtec) PO DAILY PRN 07/07/19 [History Confirmed 10/05/22] cholecalciferol (vitamin D3) 50 mcg (2,000 unit) capsule 2,000 unit PO DAILY 12/18/19 [History Confirmed 10/05/22] selenium sulfide 2.5 % lotion 1 ea topical DAILY #120 mL 06/24/20 [Rx Confirmed 10/05/22] Handicap Placard #1 ea 06/28/21 [Rx Confirmed 10/05/22] hydrocortisone 2.5 % topical cream 1 applic topical BID PRN rash #28.35 grams 10/25/21 [Rx Confirmed 10/05/22] pen needle, diabetic 31 gauge x 16 (Easy Touch) #150 ea 12/08/21 [Rx Confirmed 10/05/22] gabapentin 300 mg capsule (Neurontin) 300 mg PO BID 3 months #180 caps 03/14/22 [Rx Confirmed 10/05/22] oxybutynin chloride 10 mg tablet,extended release 24 hr 10 mg PO DAILY 03/14/22 [History Confirmed 10/05/22] rosuvastatin 40 mg tablet 40 mg PO 03/22/22 [History Confirmed 10/05/22] losartan 50 mg tablet 50 mg PO DAILY #90 tabs 04/13/22 [Rx Confirmed 10/05/22] insulin lispro 100 unit/mL subcutaneous pen (Humalog KwikPen (U-100) Insulin) See Rx Instructions subcut TID #15 mL 06/21/22 [Rx Confirmed 10/05/22] flash glucose scanning reader (Egodeus Mook 2 [place]) #1 ea 08/15/22 [Rx Confirmed 10/05/22] blood sugar diagnostic (OneTouch Ultra Test strips) #100 ea 08/17/22 [Rx Confirmed 10/05/22] insulin glargine 100 unit/mL (3 mL) subcutaneous pen (Lantus Solostar U-100 Insulin) 5 unit subcut QDAY 09/29/22 [History Confirmed 10/05/22] omeprazole 40 mg capsule,delayed release 40 mg PO DAILY #90 caps 09/29/22 [Rx Confirmed 10/05/22] PFSH Medical History? Action tremor Arthritis Back problem Breast lump Carpal tunnel syndrome Dermatitis Diabetes type 1, controlled Diabetic neuropathy Difficulty balancing Difficulty swallowing Gallstones GERD (gastroesophageal reflux disease) Insulin dependent diabetes mellitus Neuropathy Osteoarthritis Overactive bladder Pancreatitis Skin cancer Urinary frequency Urinary urgency Surgical History? H/O: hysterectomy History of carpal tunnel release History of cholecystectomy History of tonsillectomy History of total knee arthroplasty Family History? Mother Asthma Liver diseaseFather CVA (cerebral vascular accident) Social History? Smoking Status:? Never smoker second hand exposure:? No alcohol intake:? never substance use type:? does not use what type of physical activity do you participate in:? walking frequency:? daily HPI HPI HPI: Patient is a 77-year-old female here for anemia and dysphagia.? She says all of her problems started at the beginning of this year.? She says because she has been having reflux as well as dysphagia and feeling like there is a lump in the back of her throat and she has been anemic which is a new problem for her.? Her last colonoscopy was over 10 years ago.? She does not have any gross blood in her stool or abdominal pain. ROS General General: No weight change, appetite, fatigue, colon cancer or breast cancer HEENT HEENT: Yes difficulty swallowing; No eye injury, eye surgery, swollen glands or hoarseness Endo Endocrine: Yes diabetes mellitus; No thyroid disease, thyroid cancer, Hair loss, heat intolerance or cold intolerance Skin Skin: No rash or changing moles Musc Musculoskeletal: Yes back problems and arthritis; No rheumatoid arthritis, gout or joint pain Cardio Cardiovascular: No murmur, pacemaker, heart disease, atrial fibrillation, high blood pressure, heart attack, heart stent, palpitations, shortness of breat withexertion or chest pain Psych Psychiatric: No depression, anxiety or hearing voices Resp Respiratory: No shortness of breath, No sleep apnea, No cough, No COPD, No asthma, No emphysema and No wheezing Gastro Gastrointestinal: No abdominal pain, No nausea or vomiting, No diarrhea, No constipation, No blood in stool, Yes acid reflux, No hemorrhoids, No ulcers, No gallbladder problem and No black,tarry stools [place] Hematologic: No blood thinners, No blood disorders, No bleeding, No anemia and No blood clots Neuro Neurologic: Yes numbness Exam Const General: cooperative Orientation: alert and oriented x3 HENMT Head: normal to inspection Neck Neck: normal visual inspection and full ROM Chest Chest palpation & inspection: normal inspection of the chest Resp Effort & Inspection: normal respiratory effort Auscultation: clear to auscultation bilaterally Cardio Rate: regular rate Rhythm: regular rhythm GI Inspection: non-distended Palpation: soft and nontender Skin General: no rashes or lesions noted Neuro General: patient alert and patient oriented x3 Extrem General: full ROM Psych Appearance: grossly normal Mental Status: mental status grossly normal Assessment and Plan Assessment and Plan (1) GERD (gastroesophageal reflux disease): ?Status:?Acute ?Qualifiers: ?Esophagitis presence:?esophagitis presence not specified? Qualified Code(s):?K21.9 - Gastro-esophageal reflux disease without esophagitis (2) Difficulty swallowing: ?Status:?Acute ?Qualifiers: ?Dysphagia type:?esophageal phase? Qualified Code(s):?R13.19 - Other dysphagia (3) Anemia: ?Status:?Acute ?Qualifiers: ?Anemia type:?unspecified type? Qualified Code(s):?D64.9 - Anemia, unspecified ? ? ? Orders: Orders Colonoscopy Today ? ? EGD Today ? ? Plan The patient has anemia but she is also been reporting a lot more acid reflux anddysphagia in the last month.? I discussed EGD and colonoscopy with her with possible dilation of esophagus.? I also discussed possible biopsy with her.? I explained endoscopy in detail to the patient.? I explained the risks including but not limited to stroke or heart attack with anesthesia, perforation of the GItract, bleeding, infection.? I explained that any of these could necessitate further emergency surgery.? The patient understands and all questions were answered sufficiently.? The patient wishes to proceed with procedure. Deangelo Cantu MD Pager: [facility] [address] [place] [address], [address] [place] [address] Office: I have examined the patient and the H&P has been reviewed. There are no clinicalchanges since date of exam. 11/10/22 0816 <Electronically signed by Deangelo Cantu MD> Cosigner Signature (if applicable): CC: Dr. Deangelo Cantu MD; Dr. Good Mcguire MD~ Signed [facility] Work Phone: [facility] - Authorized Specialty Diagnoses / Procedures Referred By Contac t Referred To Contact Diagnoses Radiculopathy, cervical region Intervertebral 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 Procedures CONSULT [place] [address] [place] [id number] Referral ID Status Reason Start Date Expiration Date V isits Requested Visits Authorized [id number] Authorized 12/06/2021 03/06/2022 99 99 * Diagnostic Procedure Only (Routine) - Closed Specialty Diagnoses / Procedures Referred By Contac t Referred To Contact XR IMAGING Diagnoses Radiculopathy, cervical region Intervertebral 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 Procedures XR LUMBAR LIMITED 2V AP/LAT RADEX SPINE LUMBOSACRAL 2/[place] [address] [place] [id number] Xr Imaging Referral ID Status Reason Start Date Expiration Date V isits Requested Visits Authorized [id number] Closed Auto-Generate d Referral 12/06/2021 01/05/2023 1 1 [facility] for referral (narrative)* Diagnostic Procedure Only (Routine) - Pending Review Specialty Diagnoses / Procedures Referred By Contac t Referred To Contact XR IMAGING Diagnoses Right shoulder pain, unspecified chronicity Procedures XR SHOULDER GENERAL 3V OR MORE AP/TRUE AP/OTHER RIGHT RADEX SHOULDER COMPLETE MINIMUM 2 VIEWS Eleno Reyna MD [address] [place] [address] Xr Imaging Referral ID Status Reason Start Date Expiration Date Visits Requested Visits Authorized [id number] Pending Review Auto-Generat ed Referral 01/10/2022 02/09/2023 1 1 [facility] for referral (narrative)* Diagnostic Procedure Only (Routine) - Closed Specialty Diagnoses / Procedures Referred By Contac t Referred To Contact XR IMAGING Diagnoses Right shoulder pain, unspecified chronicity Procedures XR SHOULDER GENERAL 3V OR MORE AP/TRUE AP/OTHER RIGHT RADEX SHOULDER COMPLETE MINIMUM 2 VIEWS Eleno Reyna MD [address] [facility] [place] [address] Xr Imaging Referral ID Status Reason Start Date Expiration Date V isits Requested Visits Authorized [id number] Closed Auto-Generate d Referral 01/10/2022 02/09/2023 1 1 [facility] for referral (narrative)* Outpatient Procedure (Routine) - Pending Review Specialty Diagnoses / Procedures Referred By Contac t Referred To Contact [facility] Diagnoses Paraesophageal hernia Procedures ECG COMPLETE ECG ROUTINE ECG W/LEAST 12 LDS W/I&R Kasandra Wong MD 1 [facility] [employer] [address] [place] [id number] [facility] [address] [place] [id number] Referral ID Status Reason Start Date Expiration Date Visits Requested Visits Authorized [id number] Pending Review Auto-Generat ed Referral 03/14/2023 03/13/2024 1 1 * Outpatient Procedure (Routine) - Pending Review Specialty Diagnoses / Procedures Referred By Contac t Referred To Contact [facility] Diagnoses Esophageal dysphagia Procedures MANOMETRY ESOPHAGEAL ESOPHAGEAL MOTILITY STUDY W/INTERP&RPT Kasandra Wong MD 1 [employer] [address] [place] [address] [facility] [address] [place] [address] Referral ID Status Reason Start Date Expiration Date Visits Requested Visits Authorized [id number] Pending Review Auto-Generat ed Referral 03/14/2023 03/14/2024 1 1 * Diagnostic Procedure Only (Routine) - Authorized Specialty Diagnoses / Procedures Referred By Contac t Referred To Contact XR IMAGING Diagnoses Esophageal dysphagia Procedures XR UPPER GI ROUTINE DOUBLE CONTRAST/AIR RADIOLOGIC EXAM UPR GI TRC DOUBLE CONTRAST STUDY Kasandra Wong MD [address] [address] Xr Imaging Referral ID Status Reason Start Date Expiration Date Visits Requested Visits Authorized [id number] Authorized Auto-Generat ed Referral 03/14/2023 04/12/2024 1 1 [facility] for referral (narrative)* Diagnostic Procedure Only (Routine) - Closed Specialty Diagnoses / Procedures Referred By Contac t Referred To Contact XR IMAGING Diagnoses Radiculopathy, cervical region Intervertebral 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 Procedures XR LUMBAR LIMITED 2V AP/LAT RADEX SPINE LUMBOSACRAL 2/[place] [address] [place] [address] [place] [address] Referral ID Status Reason Start Date Expiration Date V isits Requested Visits Authorized [id number] Closed Auto-Generate d Referral 12/06/2021 01/05/2023 1 1 [facility] for visit Narrative* Diagnostic Procedure Only (Routine) - Closed Specialty Diagnoses / Procedures Referred By Contac t Referred To Contact XR IMAGING Diagnoses Right shoulder pain, unspecified chronicity Procedures XR SHOULDER GENERAL 3V OR MORE AP/TRUE AP/OTHER RIGHT RADEX SHOULDER COMPLETE MINIMUM 2 VIEWS Eleno Reyna MD [address] [place] [address] Xr Imaging Referral ID Status Reason Start Date Expiration Date V isits Requested Visits Authorized [id number] Closed Auto-Generate d Referral 01/10/2022 02/09/2023 1 [facility] Procedure Only (Routine) - Closed Specialty Diagnoses / Procedures Referred By Contac t Referred To Contact XR IMAGING Diagnoses Radiculopathy, cervical region Intervertebral 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 Procedures XR LUMBAR LIMITED 2V AP/LAT RADEX SPINE LUMBOSACRAL 2/[place] [address] [place] [address] [place] [address] Referral ID Status Reason Start Date Expiration Date V isits Requested Visits Authorized [id number] Closed Auto-Generate d Referral 12/06/2021 01/05/2023 1 1 [facility] Summary Purpose Family History No Family History Records Found Relationship Condition Age at Onset Recorded Date/T fina mother Asthma Unknown Disorder of liver Unknown father Cerebrovascular accident (CVA) Unknown Advance Directives No Advanced Directives Records FoundDocuments on File Type Date Recorded 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 Advance Directive(s) 10/23/2014 2:18 PM Advance Directive(s) 08/12/2010 9:06 PM Documents on File Type Date Recorded 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 Advance Directive(s) 10/23/2014 2:18 PM Advance Directive(s) 08/12/2010 9:06 PM Advance Directive Response Recorded Date/ Time Name of Medical Power of [employer] Hand Finisher FRIEND/MIYA R November 07, 2022 10:19am Living Will Yes November 07, 2022 10:19am Power of [employer] Hand Finisher Yes November 07 10:19am Advance Directive Response Recorded Date/ Time Living Will Yes November 07, 2022 11:19am Power of [employer] Hand Finisher Yes November 07 11:19am Advance Directive Response Recorded Date/ Time Name of Medical Power of [employer] Hand Finisher LISET TUCKER MS- FRIEND June 26, 2023 3:31pm Living Will Yes June 26 3:31pm Power of [employer] Hand Finisher Yes June 26, 2023 3:31pm Advance Directive Response Recorded Date/ Time Name of Medical Power of [employer] Hand Finisher LISET TUCKER MS- FRIEND June 26, 2023 2:31pm Living Will Yes June 26 2:31pm Power of [employer] Hand Finisher Yes June 26, 2023 2:31pm Advance Directive Response Recorded Date/ Time Living Will Yes June 26 3:31pm Power of [employer] Hand Finisher Yes June 26, 2023 3:31pm Advance Directive Response Recorded Date/ Time Living Will Yes June 26 3:31pm Do you have a Healthcare Power of [employer] Hand Finisher? Yes June 26, 2023 3:31pm Reason for Referral Specialty Diagnoses / Procedures Referred By Contac t Referred To Contact MR IMAGING Diagnoses Cervicalgia Radiculopathy, cervical region Bladder dysfunction Spinal stenosis of cervical region Procedures MRI CERVICAL SPINE WO IVCON MRI SPINAL CANAL CERVICAL W/[place] [address] [place] [address] Mr Imaging Referral ID Status Reason Start Date Expiration Date Visits Requested Visits Authorized [id number] Authorized Auto-Generat ed Referral 01/31/2022 03/02/2023 1 1 Specialty Diagnoses / Procedures Referred By Contac t Referred To Contact MR IMAGING Diagnoses Spinal stenosis of lumbar region without neurogenic claudication Procedures MRI LUMBAR SPINE WO IVCON MRI SPINAL CANAL LUMBAR W/[place] [address] [place] [address] Mr Imaging Referral ID Status Reason Start Date Expiration Date Visits Requested Visits Authorized [id number] Authorized Auto-Generat ed Referral 01/31/2022 03/02/2023 1 1 Specialty Diagnoses / Procedures Referred By Contac t Referred To Contact Diagnoses Tendinopathy of rotator cuff, right Procedures CONSULT [place] [address] [place] [address] Referral ID Status Reason Start Date Expiration Date V isits Requested Visits Authorized [id number] Authorized 01/31/2022 05/01/2022 99 99 Referral ID Status Reason Start Date Expiration Date V isits Requested Visits Authorized [id number] Closed Auto-Generate d Referral 01/31/2022 03/02/2023 1 1 Referral ID Status Reason Start Date Expiration Date V isits Requested Visits Authorized [id number] Closed Auto-Generate d Referral 01/31/2022 03/02/2023 1 1 Specialty Diagnoses / Procedures Referred By Contjesús t Referred To Contact Sports Medicine Diagnoses Right shoulder pain, unspecified chronicity Procedures CONSULT TO SPORTS MEDICINE OFFICE/OUTPATIENT [facility] 60-[place] [address] [place] [address] Referral ID Status Reason Start Date Expiration Date Visits Requested Visits Authorized [id number] Authorized PCP Requested Referral 05/05/2022 05/05/2023 1 1 Medications Administered Section Inactive Administered Medications - up to 3 most recent administrations Medication Order MAR Action Action Date Dose Rate Site lidocaine (PF) 10 mg/mL (1 %) 4 mL injection (XYLOCAINE) 4 mL, Injection - FOR ORTHO USE ONLY, ONE TIME INJECTION, 1 dose, Starting on Tu06/06/22 at 1220, Until 06/06/22 at 1220 Given 06/06/2022 12:20 PM EDT 4 mL Shoulder, Right triamcinolone acetonide 40 mg injection (KeNALog 40) 40 mg, Injection - FOR ORTHO USE ONLY, ONE TIME INJECTION, 1 dose, Starting on Tu06/06/22 at 1220, Until Tu06/06/22 at 1220 Given 06/06/2022 12:20 PM EDT 40 mg Shoulder, Right Chief Complaint and Reason for Visit Chief Complaint 5 M F/U 3 M FU 3 M FU Reason for Visit Diabetic neuropathy Hypertension Overactive bladder Diabetes Diabetic neuropathy Hypertension Diabetes type 1, controlled 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 Hypertension Chief Complaint 3 M FU 3 M FU 3 M FU 3 M FU Acid reflux Reason for Visit Diabetes type 1, con trolled 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 Hypertension Diabetic neuropathy Hypertension Overactive bladder Diabetes type 1, controlled Diabetic neuropathy Epigastric pain Hypertension Action tremor Difficulty swallowing GERD (gastroesophageal reflux disease) Hypertension Insulin dependent diabetes mellitus Anemia Difficulty swallowing GERD (gastroesophageal reflux disease) Chief Complaint 3 M FU 3 M FU Acid reflux Reason for Visit Diabetes type 1, con trolled Diabetic neuropathy Epigastric pain Hypertension Action tremor Difficulty swallowing GERD (gastroesophageal reflux disease) Hypertension Insulin dependent diabetes mellitus Anemia Difficulty swallowing GERD (gastroesophageal reflux disease) Chief Complaint 3 M FU 3 M FU swelling lower extremities SOFT TISSUE DISORDERS, BILATERAL LEG SWELLING 3 M FU Reason for Visit Diabetes type 1, con trolled Hiatal hernia Hypertension GERD (gastroesophageal reflux disease) Hiatal hernia Hyperlipidemia Hypertension Bilateral lower extremity edema GERD (gastroesophageal reflux disease) Hiatal hernia Hypertension Diabetes type 1, controlled Hypertension Chief Complaint 3 M FU 3 M FU swelling lower extremities SOFT TISSUE DISORDERS, BILATERAL LEG SWELLING 3 M FU Effusion, unspecified knee Reason for Visit Diabetes type 1, con trolled Hiatal hernia Hypertension GERD (gastroesophageal reflux disease) Hiatal hernia Hyperlipidemia Hypertension Bilateral lower extremity edema GERD (gastroesophageal reflux disease) Hiatal hernia Hypertension Diabetes type 1, controlled Hypertension Chief Complaint swelling lower extre mities SOFT TISSUE DISORDERS, BILATERAL LEG SWELLING PREOP 3 M FU Effusion, unspecified knee 3 M FU lower ext Reason for Visit Bilateral lower extr emity edema GERD (gastroesophageal reflux disease) Hiatal hernia Hypertension Diabetes type 1, controlled Hypertension CKD (chronic kidney disease) stage 3, GFR 30-59 ml/min Diabetes type 1, controlled Hypertension Overweight Chief Complaint Effusion, unspecifie d knee 3 M FU lower ext 3 M FU Reason for Visit CKD (chronic kidney disease) stage 3, GFR 30-59 ml/min Diabetes type 1, controlled Hypertension Overweight Health care maintenance GERD (gastroesophageal reflux disease) Hyperlipidemia Hypertension Chief Complaint 3 M FU lower ext 3 M FU SCREENING POST GENESIS Reason for Visit CKD (chronic kidney disease) stage 3, GFR 30-59 ml/min Diabetes type 1, controlled Hypertension Overweight Health care maintenance GERD (gastroesophageal reflux disease) Hyperlipidemia Hypertension Chief Complaint 3 M FU lower ext 3 M FU SCREENING POST GENESIS 3 M FU SCREENING POST GENESIS Reason for Visit CKD (chronic kidney disease) stage 3, GFR 30-59 ml/min Diabetes type 1, controlled Hypertension Overweight Health care maintenance GERD (gastroesophageal reflux disease) Hyperlipidemia Hypertension Diabetes type 1, controlled Hypertension Overweight Vitamin D insufficiency Chief Complaint 3 M FU SCREENING POST GENESIS LEFT HAND TROUBLE LEFT HAND 3 M FU CARPAL TUNNEL SYNDROME LEFT HAND. RX HERE Reason for Visit Diabetes type 1, con trolled Hypertension Overweight Vitamin D insufficiency Carpal tunnel syndrome of left wrist Carpal tunnel syndrome of left wrist Muscle wasting and atrophy, not elsewhere classified, left hand Ulnar neuropathy CKD (chronic kidney disease) stage 3, GFR 30-59 ml/min Diabetes type 1, controlled Hypertension Overweight Chief Complaint Admit Date 5 M FU September 22, 2024 1 1:38am 6 M FU January 12, 2025 9:52a m Reason for Visit Admit Date Diabetes type 1, controlled September 11:38am Hyperlipidemia September 22, 2024 1 1:38am Hypertension September 22, 2024 1 1:38am Neuropathy September 22, 2024 1 1:38am Overweight September 22, 2024 1 1:38am Vitamin D insufficiency September 22 11:38am Localized swelling of left forearm January 012024 9:52am GERD (gastroesophageal reflux disease) M ay 2024 9:52am Hyperlipidemia January 12, 2025 9:52a m Hypertension January 12, 2025 9:52a m Chief Complaint Admit Date 6 M FU January 12, 2025 9:52a m 4 M FU January 21, 2025 11:38 am Reason for Visit Admit Date Localized swelling of left forearm January 012024 9:52am GERD (gastroesophageal reflux disease) M ay 2024 9:52am Hyperlipidemia January 12, 2025 9:52a m Hypertension January 12, 2025 9:52a m Chief Complaint Admit Date 6 M FU January 12, 2025 9:52a m 4 M FU January 21, 2025 11:38 am CONCERN FOR UTI February 27, 2025 10:2 5am Reason for Visit Admit Date Localized swelling of left forearm January 012024 9:52am GERD (gastroesophageal reflux disease) M ay 2024 9:52am Hyperlipidemia January 12, 2025 9:52a m Hypertension January 12, 2025 9:52a m Diabetes type 1, controlled January 21 11:38am Hypertension January 21, 2025 11:38 am Mixed hyperlipidemia January 21, 2025 11:3 8am Overweight January 21, 2025 11:38 am 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 me llitus January 21, 2025 11:38am Chief Complaint Admit Date 6 M FU January 12, 2025 9:52a m 4 M FU January 21, 2025 11:38 am CONCERN FOR UTI February 27, 2025 10:2 5am CONCERN FOR UTI March 15, 2025 10:5 1am Reason for Visit Admit Date Localized swelling of left forearm January 012024 9:52am GERD (gastroesophageal reflux disease) M ay 2024 9:52am Hyperlipidemia January 12, 2025 9:52a m Hypertension January 12, 2025 9:52a m Diabetes type 1, controlled January 21 11:38am Hypertension January 21, 2025 11:38 am Mixed hyperlipidemia January 21, 2025 11:3 8am Overweight January 21, 2025 11:38 am 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 me llitus January 21, 2025 11:38am Dysuria February 27, 2025 10:2 5am Reason for Visit Admit Date Localized swelling of left forearm January 012024 9:52am GERD (gastroesophageal reflux disease) M ay 2024 9:52am Hyperlipidemia January 12, 2025 9:52a m Hypertension January 12, 2025 9:52a m Diabetes type 1, controlled January 21 11:38am Hypertension January 21, 2025 11:38 am Mixed hyperlipidemia January 21, 2025 11:3 8am Overweight January 21, 2025 11:38 am 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 me llitus January 21, 2025 11:38am Dysuria February 27, 2025 10:2 5am UTI (urinary tract infection) March 15, 2025 10:51am Chief Complaint Admit Date 6 M FU January 12, 2025 9:52a m 4 M FU January 21, 2025 11:38 am CONCERN FOR UTI February 27, 2025 10:2 5am CONCERN FOR UTI March 15, 2025 10:5 1am 12m oxybutynin f/u April 17, 2025 8: 29am Reason for Visit Admit Date Localized swelling of left forearm January 012024 9:52am GERD (gastroesophageal reflux disease) M ay 2024 9:52am Hyperlipidemia January 12, 2025 9:52a m Hypertension January 12, 2025 9:52a m Diabetes type 1, controlled January 21 11:38am Hypertension January 21, 2025 11:38 am Mixed hyperlipidemia January 21, 2025 11:3 8am Overweight January 21, 2025 11:38 am 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 me llitus January 21, 2025 11:38am Dysuria February 27, 2025 10:2 5am UTI (urinary tract infection) March 15, 2025 10:51am Mixed incontinence April 17, 2025 8: 29am Nocturia April 17, 2025 8: 29am UTI (urinary tract infection) April 8:29am Overactive bladder April 17, 2025 8: 29am Chief Complaint Admit Date 6 M FU January 12, 2025 9:52a m 4 M FU January 21, 2025 11:38 am CONCERN FOR UTI February 27, 2025 10:2 5am CONCERN FOR UTI March 15, 2025 10:5 1am 12m oxybutynin f/u April 17, 2025 8: 29am Urinary tract infection April 22 9:13am Reason for Visit Admit Date Localized swelling of left forearm January 012024 9:52am GERD (gastroesophageal reflux disease) M ay 2024 9:52am Hyperlipidemia January 12, 2025 9:52a m Hypertension January 12, 2025 9:52a m Diabetes type 1, controlled January 21 11:38am Hypertension January 21, 2025 11:38 am Mixed hyperlipidemia January 21, 2025 11:3 8am Overweight January 21, 2025 11:38 am 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 me llitus January 21, 2025 11:38am Dysuria February 27, 2025 10:2 5am UTI (urinary tract infection) March 15, 2025 10:51am Mixed incontinence April 17, 2025 8: 29am Nocturia April 17, 2025 8: 29am UTI (urinary tract infection) April 8:29am Overactive bladder April 17, 2025 8: 29am Mixed incontinence April 22, 2025 9: 13am Nocturia April 22, 2025 9: 13am UTI (urinary tract infection) April 9:13am Vaginal atrophy April 22, 2025 9: 13am Overactive bladder April 22, 2025 9: 13am Additional Source Comments INFORMATION SOURCE (unrecogn ized section and content) DATE CREATED AUTHOR 02/26/2018 [facility] DATE CREATED AUTHOR AUTHOR'S ORGANIZ ATION 02/09/2019 [facility] DATE CREATED AUTHOR AUTHOR'S ORGANIZ ATION 02/15/2019 [facility] ([place]) DATE CREATED AUTHOR AUTHOR'S ORGANIZ ATION 06/29/2022 [facility] DATE CREATED AUTHOR AUTHOR'S ORGANIZ ATION 06/12/2023 [facility] DATE CREATED AUTHOR AUTHOR'S ORGANIZ ATION 09/21/2023 [facility] DATE CREATED AUTHOR AUTHOR'S ORGANIZ ATION 05/01/2025 [facility] Source Comments (unrecognize d section and content) In the event this informatio n is protected by the Federal Confidentiality of Alcohol and Drug Abuse Patient Records regulations: The Federal rules restrict any use of the information to criminally investigate or prosecute any alcohol or drug abuse patient.[facility] the event this information is protected by the Federal Confidentiality of Alcohol and Drug Abuse Patient Records regulations: The Federal rules restrict any use of the information to criminally investigate or prosecute any alcohol or drug abuse patient.[facility] the event this information is protected by the Federal Confidentiality of Alcohol and Drug Abuse Patient Records regulations: The Federal rules restrict any use of the information to criminally investigate or prosecute any alcohol or drug abuse patient.[facility] the event this information is protected by the Federal Confidentiality of Alcohol and Drug Abuse Patient Records regulations: The Federal rules restrict any use of the information to criminally investigate or prosecute any alcohol or drug abuse patient.[facility] the event this information is protected by the Federal Confidentiality of Alcohol and Drug Abuse Patient Records regulations: The Federal rules restrict any use of the information to criminally investigate or prosecute any alcohol or drug abuse patient.[facility] the event this information is protected by the Federal Confidentiality of Alcohol and Drug Abuse Patient Records regulations: The Federal rules restrict any use of the information to criminally investigate or prosecute any alcohol or drug abuse patient.[facility] the event this information is protected by the Federal Confidentiality of Alcohol and Drug Abuse Patient Records regulations: The Federal rules restrict any use of the information to criminally investigate or prosecute any alcohol or drug abuse patient.[facility] the event this information is protected by the Federal Confidentiality of Alcohol and Drug Abuse Patient Records regulations: The Federal rules restrict any use of the information to criminally investigate or prosecute any alcohol or drug abuse patient.[facility] the event this information is protected by the Federal Confidentiality of Alcohol and Drug Abuse Patient Records regulations: The Federal rules restrict any use of the information to criminally investigate or prosecute any alcohol or drug abuse patient.[facility] the event this information is protected by the Federal Confidentiality of Alcohol and Drug Abuse Patient Records regulations: The Federal rules restrict any use of the information to criminally investigate or prosecute any alcohol or drug abuse patient.[facility] the event this information is protected by the Federal Confidentiality of Alcohol and Drug Abuse Patient Records regulations: The Federal rules restrict any use of the information to criminally investigate or prosecute any alcohol or drug abuse patient.[facility] the event this information is protected by the Federal Confidentiality of Alcohol and Drug Abuse Patient Records regulations: The Federal rules restrict any use of the information to criminally investigate or prosecute any alcohol or drug abuse patient.[facility] Hospital[facility] the event this information is protected by the Federal Confidentiality of Alcohol and Drug Abuse Patient Records regulations: The Federal rules restrict any use of the information to criminally investigate or prosecute any alcohol or drug abuse patient.[facility] Hospital[facility] the event this information is protected by the Federal Confidentiality of Alcohol and Drug Abuse Patient Records regulations: The Federal rules restrict any use of the information to criminally investigate or prosecute any alcohol or drug abuse patient.[facility] HospitalIn the event this information is protected by the Federal Confidentiality of Alcohol and Drug Abuse Patient Records regulations: The Federal rules restrict any use of the information to criminally investigate or prosecute any alcohol or drug abuse patient.[facility]In the event this information is protected by the Federal Confidentiality of Alcohol and Drug Abuse Patient Records regulations: The Federal rules restrict any use of the information to criminally investigate or prosecute any alcohol or drug abuse patient.[facility] HospitalIn the event this information is protected by the Federal Confidentiality of Alcohol and Drug Abuse Patient Records regulations: The Federal rules restrict any use of the information to criminally investigate or prosecute any alcohol or drug abuse patient.[facility] HospitalIn the event this information is protected by the Federal Confidentiality of Alcohol and Drug Abuse Patient Records regulations: The Federal rules restrict any use of the information to criminally investigate or prosecute any alcohol or drug abuse patient.[facility]In the event this information is protected by the Federal Confidentiality of Alcohol and Drug Abuse Patient Records regulations: The Federal rules restrict any use of the information to criminally investigate or prosecute any alcohol or drug abuse patient.[facility] HospitalIn the event this information is protected by the Federal Confidentiality of Alcohol and Drug Abuse Patient Records regulations: The Federal rules restrict any use of the information to criminally investigate or prosecute any alcohol or drug abuse patient.[facility] HospitalIn the event this information is protected by the Federal Confidentiality of Alcohol and Drug Abuse Patient Records regulations: The Federal rules restrict any use of the information to criminally investigate or prosecute any alcohol or drug abuse patient.[facility] HospitalIn the event this information is protected by the Federal Confidentiality of Alcohol and Drug Abuse Patient Records regulations: The Federal rules restrict any use of the information to criminally investigate or prosecute any alcohol or drug abuse patient.[facility] HospitalIn the event this information is protected by the Federal Confidentiality of Alcohol and Drug Abuse Patient Records regulations: The Federal rules restrict any use of the information to criminally investigate or prosecute any alcohol or drug abuse patient.[facility] HospitalIn the event this information is protected by the Federal Confidentiality of Alcohol and Drug Abuse Patient Records regulations: The Federal rules restrict any use of the information to criminally investigate or prosecute any alcohol or drug abuse patient.[facility] Reason for Visit (unrecogniz ed section and content) Reason Comments PT Discharge Specialty Diagnoses / Procedures Referred By Contac t Referred To Contact Diagnoses Tendinopathy of rotator cuff, right Procedures [place]SULT [place] [address] [place] [id number] Referral ID Status Reason Start Date Expiration Date V isits Requested Visits Authorized [id number] Authorized 01/31/2022 05/01/2022 99 99 Reason Comments Physical Therapy Reason Comments PT Eval Specialty Diagnoses / Procedures Referred By Contac t Referred To Contact Diagnoses Radiculopathy, cervical region Intervertebral 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 Procedures CONSULT [place] [address] [place] [address] Referral ID Status Reason Start Date Expiration Date V isits Requested Visits Authorized [id number] Authorized 12/06/2021 03/06/2022 99 99 Reason Comments New Patient Reason Comments Referred by Chucho Yuan New Reason Comments Follow Up Specialty Diagnoses / Procedures Referred By Contac t Referred To Contact MR IMAGING Diagnoses Cervicalgia Radiculopathy, cervical region Bladder dysfunction Spinal stenosis of cervical region Procedures MRI CERVICAL SPINE WO IVCON MRI SPINAL CANAL CERVICAL W/[place] [address] [place] [id number] Mr Imaging Referral ID Status Reason Start Date Expiration Date V isits Requested Visits Authorized [id number] Closed Auto-Generate d Referral 01/31/2022 03/02/2023 1 1 Reason Comments Follow Up Reason Comments Established Patient Reason Comments New Specialty Diagnoses / Procedures Referred By Contac t Referred To Contact Sports Medicine Diagnoses Right shoulder pain, unspecified chronicity Procedures CONSULT TO SPORTS MEDICINE OFFICE/OUTPATIENT NEW HIGH MDM 60-74 MINUTES Franck Hall, [address] [place] [address] Referral ID Status Reason Start Date Expiration Date V isits Requested Visits Authorized [id number] Closed PCP Requested Referral 05/05/2022 05/05/2023 1 1 Reason Comments New Patient Evaluation Reason Comments Appointment Manometry Reason Comments Future Appointment Goals (unrecognized section and content) Goals may be documented in a n alternate sectionGoals may be documented in an alternate sectionGoals may be documented in an alternate sectionGoals may be documented in an alternate sectionGoals may be documented in an alternate sectionGoals may be documented in an alternate sectionGoals may be documented in an alternate sectionGoals may be documented in an alternate sectionGoals may be documented in an alternate sectionGoals may be documented in an alternate sectionGoals may be documented in an alternate sectionGoals may be documented in an alternate sectionGoals may be documented in an alternate sectionGoals may be documented in an alternate sectionGoals may be documented in an alternate sectionGoals may be documented in an alternate sectionGoals may be documented in an alternate sectionGoals may be documented in an alternate section Care Teams (unrecognized sec tion and content) Team Status: Active Member Role Status Dates Dr. Good Mcguire MD Family Provider Active Dr. Good Mcguire MD Primary Care Provider Active Team Status: Inactive Member Role Status Dates Dr. Good Mcguire MD Primary Care Provider, Refer ring Provider Active SABINO Stringer Attending Provider Active Team Status: Inactive Member Role Status Dates Dr. Good Mcguire MD Primary Care Nasrin ashton, Attending Provider, Referring Provider Active Team Status: Inactive Member Role Status Dates Dr. Good Mcguire MD Primary Care Provider, Refer ring Provider Active Dr. Deangelo Cantu MD Attending Provider Active Team Status: Inactive Member Role Status Dates Dr. Good Mcguire MD Primary Care Provider Active GAIL StringerC Attending Provider, Referring Pr ovider Active Team Status: Active Member Role Status Dates Dr. Good Mcguire MD Primary Care Provider Active Dr. Deangelo Cantu MD Attending Pr ovider, Referring Provider, Other Provider Active Team Status: Inactive Member Role Status Dates Dr. Good Mcguire MD Primary Care Provider Active Dr. Deangelo Cantu MD Attending Provider, Referr ing Provider Active Side Hemmer Relationship Specialty Start Date End Date Good Mcguire MD [address] [place] [address] PCP - General Internal Medicine 03/14/23 Side Hemmer Relationship Specialty Start Date End Date Good Mcguire MD [address] [place] [address] PCP - General Internal Medicine 03/14/23 Team Status: Active Member Role Status Dates Dr. Good Mcguire MD Primary Care Provider Active Dr. Dillon Solis MD Attending Provider Active Team Status: Active Member Role Status Dates Dr. Good Mcguire MD Primary Care Provider, Refer ring Provider Active Dr. Dillon Solis MD Attending Provider Active Team Status: Active Member Role Status Dates Dr. Good Mcguire MD Primary Care Provider, Refer ring Provider Active Dr. Yuval Hubbard MD Attending Provider Active Team Status: Inactive Member Role Status Dates Dr. Good Mcguire MD Primary Care Provider Active Dr. Liset Mao MD Emergency Provider Active Team Status: Inactive Member Role Status Dates Dr. Good Mcguire MD Primary Care Provider Active Dr. Liset Mao MD Attending Provider, Emergency Provider Active Team Status: Active Member Role Status Dates Dr. Good Mcguire MD Primary Care Provider Active SABINO Stringer Attending Provider, Referring Pr ovider Active Team Status: Active Member Role Status Dates Dr. Good Mcguire MD Primary Care Provider Active Dr. Dillon Solis MD Attending Provider Active Dr. Liset Mao MD Referring Provider Active Side Hemmer Relationship Specialty Start Date End Date Good Mcguire MD [address] [place] [address] PCP - General Internal Medicine 03/14/23 Side Hemmer Relationship Specialty Start Date End Date Good Mcguire MD [address] [place] [address] PCP - General Internal Medicine 03/14/23 Team Status: Inactive Member Role Status Dates Dr. Good Mcguire MD Primary Care Provider, Refer ring Provider Active GAIL StephenC Attending Provider Active Team Status: Inactive Member Role Status Dates Dr. Good Mcguire MD Primary Care Provider, Refer ring Provider Active Dr. Jerry Rios DO Attending Provider Active Team Status: Inactive Member Role Status Dates Dr. Good Mcguire MD Primary Care Provider Active Dr. Jerry Rios DO Attending Provider, Referring Provider Active Team Status: Inactive Member Role Status Dates Dr. Good Mcguire MD Primary Care Provider Active Start: September 22, 2024 End: September 22, 2024 Dr. Good Mcguire MD Referring Provider Active Start: September 22, 2024 End: September 22, 2024 GAIL StringerC Attending Provider Active Start: September 22, 2024 End: September 22, 2024 Team Status: Inactive Member Role Status Dates Dr. Good Mcguire MD Primary Care Provider Active Start: January 12, 2025 End: January 12, 2025 Dr. Good Mcguire MD Attending Provider Active Start: January 12, 2025 End: January 12, 2025 Dr. Good Mcguire MD Referring Provider Active Start: January 12, 2025 End: January 12, 2025 Team Status: Inactive Member Role Status Dates Dr. Good Mcguire MD Primary Care Provider Active Start: January 21, 2025 End: January 21, 2025 Dr. Good Mcguire MD Referring Provider Active Start: January 21, 2025 End: January 21, 2025 SABINO Stringer Attending Provider Active Start: January 21, 2025 End: January 21, 2025 Team Status: Active Member Role/Relationship Status Dates Dr. Good Mcguire MD Family Provider Active Dr. Good Mcguire MD Primary Care Provider Active Team Status: Inactive Member Role/Relationship Status Dates Dr. Good Mcguire MD Primary Care Provider Active Start: January 12, 2025 End: January 12, 2025 Dr. Good Mcguire MD Attending Provider Active Start: January 12, 2025 End: January 12, 2025 Dr. Good Mcguire MD Referring Provider Active Start: January 12, 2025 End: January 12, 2025 Team Status: Inactive Member Role/Relationship Status Dates Dr. Good Mcguire MD Primary Care Provider Active Start: January 12, 2025 End: January 12, 2025 Dr. Good Mcguire MD Attending Provider Active Start: January 12, 2025 End: January 12, 2025 Dr. Good Mcguire MD Referring Provider Active Start: January 12, 2025 End: January 12, 2025 Team Status: Inactive Member Role/Relationship Status Dates Dr. Good Mcguire MD Primary Care Provider Active Start: January 21, 2025 End: January 21, 2025 Dr. Good Mcguire MD Referring Provider Active Start: January 21, 2025 End: January 21, 2025 SABINO Stringer Attending Provider Active Start: January 21, 2025 End: January 21, 2025 Team Status: Inactive Member Role/Relationship Status Dates Dr. Good Mcguire MD Primary Care Provider Active Start: February 27, 2025 End: February 27, 2025 Dr. Good Mcguire MD Referring Provider Active Start: February 27, 2025 End: February 27, 2025 Bryan YANEZ PA Attending Provider Active Sta rt: February 27, 2025 End: February 27, 2025 Team Status: Inactive Member Role/Relationship Status Dates Dr. Good Mcguire MD Primary Care Provider Active Start: March 15, 2025 End: March 15, 2025 Dr. Good Mcguire MD Referring Provider Active Start: March 15, 2025 End: March 15, 2025 Justina YANEZ PA Attending Provider Active Start: March 15, 2025 End: March 15, 2025 Team Status: Inactive Member Role/Relationship Status Dates Dr. Good Mcguire MD Primary Care Provider Active Start: March 15, 2025 End: March 15, 2025 Justina YANEZ PA Attending Provider Active Start: March 15, 2025 End: March 15, 2025 Team Status: Inactive Member Role/Relationship Status Dates Dr. Good Mcguire MD Primary Care Provider Active Start: March 15, 2025 End: March 15, 2025 Dr. Good Mcguire MD Referring Provider Active Start: March 15, 2025 End: March 15, 2025 Justina YANEZ PA Attending Provider Active Start: March 15, 2025 End: March 15, 2025 Team Status: Inactive Member Role/Relationship Status Dates Dr. Good Mcguire MD Primary Care Provider Active Start: March 03, 2025 Dr. Courtney Rivera MD Attending Provider Active Start: March 03, 2025 Team Status: Inactive Member Role/Relationship Status Dates Dr. Good Mcguire MD Primary Care Provider Active Start: March 15, 2025 End: March 15, 2025 Justina YANEZ PA Attending Provider Active Start: March 15, 2025 End: March 15, 2025 Team Status: Inactive Member Role/Relationship Status Dates Dr. Good Mcguire MD Primary Care Provider Active Start: March 15, 2025 End: March 15, 2025 Dr. Good Mcguire MD Referring Provider Active Start: March 15, 2025 End: March 15, 2025 Justina YANEZ PA Attending Provider Active Start: March 15, 2025 End: March 15, 2025 Team Status: Inactive Member Role/Relationship Status Dates Dr. Good Mcguire MD Primary Care Provider Active Start: April 17, 2025 End: April 17, 2025 Dr. Good Mcguire MD Referring Provider Active Start: April 17, 2025 End: April 17, 2025 Dr. Courtney Rivera MD Attending Provider Active Start: April 17, 2025 End: April 17, 2025 Team Status: Inactive Member Role/Relationship Status Dates Dr. Good Mcguire MD Primary Care Provider Active Start: April 22, 2025 End: April 22, 2025 Dr. Good Mcguire MD Referring Provider Active Start: April 22, 2025 End: April 22, 2025 Dr. Courtney Rivera MD Attending Provider Active Start: April 22, 2025 End: April 22, 2025 FOR RECORDS PERTAINING TO PATIENTS WHO ARE [...] BE BASED ON THE PRIMARY CLINICAL RECORDS. [facility] [employer] provides no warranty or guarantee of the accuracy or completeness of information in this document.
== END | disposition home or self-care (01) ==
LOC: US 11:03
PROVIDERS: PCP Internal Medicine; Referring Provider Urology; Visit Provider Urology
DX: N39.0 Urinary tract infection, site not specified (principal)
CPT/HCPCS: 76770

== ENCOUNTER → 2025-07-15 | Outpatient (CLI) | payer MEDICARE, OTHER, SELFPAY ==
[2025-07-15 13:10] LABS: AST(SGOT) 27 U/L (<=31); Alanine Aminotransfer ALT/SGPT 16 U/L (<=34); Albumin, Serum 3.9 g/dL (3.4-4.8); Alkaline Phosphatase 55 U/L (35-104); Anion Gap 11 (5-15); BUN 39 mg/dL (4-19); BUN/Creat Ratio 38.5 RATIO (10-20); Calcium,Total 9.6 mg/dL (7.6-11.0); Carbon Dioxide 25.3 mmol/L (21.0-32.0); Chloride 107 mmol/L (98-108); Cholesterol 115 mg/dL (<=200); Globulin 2.6 g/dL (2.2-4.2); Glucose 153 mg/dL (70-99); Low Density Lipoprotein Calc. 44 mg/dL; Potassium 4.7 mmol/L (3.3-5.1); Triglycerides 34 mg/dL; Very Low Density Lipoprotein 7 mg/dL (5-40); Vitamin D,25 Hydroxy 55.4 ng/mL (30-100); cholesterol:hdl ratio screen 1.88
[2025-07-15 17:01] LABS: Creatinine, Urine (random) 90.90 mg/dL (28.00-217.00); Microalbumin,Random Urine 22.1 mg/L (<20 mg/L)
== END | disposition home or self-care (01) ==
LOC: MTLAB 09:26
PROVIDERS: PCP Internal Medicine; Referring Provider Nurse Practitioner Family; Visit Provider Nurse Practitioner Family
DX: E10.29 Type 1 diabetes mellitus with other diabetic kidney complication (principal); R80.9 Proteinuria, unspecified; E55.9 Vitamin D deficiency, unspecified
CPT/HCPCS: 36415; 80053; 80061; 82043; 82306; 82570; 84443